=== PATIENT | female | born 1960 | race Caucasian/White ===

== ENCOUNTER → 2019-01-04 | Outpatient (CLI) | payer OTHER ==
[~2019-01-04] MED LIST: ATEN25TA PO; HCT25T PO
--- NOTE | 2019-01-04 19:25 | Diagnostic Imaging Report ---
INDICATION: Redness along the lateral right breast. COMPARISON: Correlation is made with diagnostic mammogram of earlier the same day. EXAMINATION: Sonographic interrogation of the area of redness along the lateral aspect of the right breast was performed. FINDINGS: No sonographic abnormality is seen. No solid or cystic mass is detected. IMPRESSION: No sonographic abnormality is detected. Clinical followup is recommended. ACR BI-RADS Category 1: Negative. Result letter will be mailed to the patient. Note: At least 10% of breast cancer is not imaged by mammography. Dictated by: Dictated on workstation # [id number]
--- NOTE | 2019-01-04 19:26 | Diagnostic Imaging Report ---
INDICATION: Area of redness along the lateral aspect of the right breast. Patient has had prior right breast carcinoma and right lumpectomy. Patient states this area of redness corresponds to the site of the drain post lumpectomy. COMPARISON: Correlation is made with prior mammograms from 06/06/2012 and 05/07/2011. TECHNIQUE: Bilateral 2-D and 3-D diagnostic mammography was performed. The current study was also evaluated with a Computer Aided Detection (CAD) system. 3-D tomosynthesis was also performed and reviewed. FINDINGS: Post-lumpectomy changes in the right breast are noted. There are benign calcifications in the right breast. Area of redness was marked with a [place] marker. No underlying abnormality is seen. There are no suspicious calcifications. Axillae are unremarkable. IMPRESSION: Post-lumpectomy changes in the right breast. No mammographic features suspicious for malignancy are identified. Even so, directed sonographic interrogation of the area of redness along the lateral aspect of the right breast is recommended and will be performed today. ACR BI-RADS Category 0: Incomplete. (Needs additional imaging evaluation). Result letter will be mailed to the patient. Note: At least 10% of breast cancer is not imaged by mammography. Dictated by: Dictated on workstation # [id number]
== END ==
LOC: RAD 08:02
PROVIDERS: ATTEND Nurse Practitioner Family
DX: N63.10 Unspecified lump in the right breast, unspecified quadrant (principal); Z85.3 Personal history of malignant neoplasm of breast; Z98.890 Other specified postprocedural states
CPT/HCPCS: 77066

== ENCOUNTER → 2020-08-05 | Outpatient (CLI) | payer OTHER ==
--- NOTE | 2020-08-05 13:49 | Diagnostic Imaging Report ---
PROCEDURE: US left lower extremity venous. TECHNIQUE: Multiple real-time grayscale images were obtained over the left lower extremity in various projections. Additional duplex Doppler and color Doppler images were also obtained. INDICATION: Thrombophlebitis in the left leg. There is no evidence of left lower extremity DVT. Left lower extremity deep venous system shows normal compressibility with normal response to augmentation and Valsalva. There does appear to be thrombus within a superficial vein in the lateral left thigh may represent the greater saphenous vein. There is no fluid collection. IMPRESSION: 1. No evidence of left lower extremity DVT. 2. Findings consistent with superficial thrombophlebitis. Dictated by: Dictated on workstation # [id number]
== END ==
LOC: RAD 12:39
PROVIDERS: ATTEND Nurse Practitioner Family
DX: I80.3 Phlebitis and thrombophlebitis of lower extremities, unspecified (principal)

== ENCOUNTER 2020-10-31 09:59 | Day surgery (SDC) | payer OTHER ==
[~2020-10-31] VITALS: Ht 172 cm; Wt 145.0 kg
[2020-10-31 10:44] LABS: BASOPHILS # (AUTO) 0.1 10^3/uL (0.0-0.1); BASOPHILS % (AUTO) 0 % (0-10); EOSINOPHILS % (AUTO) 0 % (0-10); HEMATOCRIT 46 % (35-52); HEMOGLOBIN 14.7 g/dL (11.5-16.0); LYMPHOCYTES # (AUTO) 1.5 10^3/uL (1.0-4.0); LYMPHOCYTES % (AUTO) 12 % (12-44); MEAN CORPUSCULAR HEMOGLOBIN 29 pg (25-34); MEAN CORPUSCULAR HGB CONC 32 g/dL (32-36); MEAN CORPUSCULAR VOLUME 91 fL (80-99); MEAN PLATELET VOLUME 10.4 fL (9.0-12.2); MONOCYTES # (AUTO) 0.6 10^3/uL (0.0-1.0); MONOCYTES % (AUTO) 5 % (0-12); NEUTROPHILS # (AUTO) 10.3 10^3/uL (1.8-7.8); NEUTROPHILS % (AUTO) 82 % (42-75); PLATELET COUNT 390 10^3/uL (130-400); WHITE BLOOD COUNT 12.6 10^3/uL (4.3-11.0)
[2020-10-31 10:50] LABS: ALBUMIN 3.9 GM/DL (3.2-4.5); POTASSIUM 4.1 MMOL/L (3.6-5.0)
[2020-10-31 10:51] LABS: CALCIUM 9.3 MG/DL (8.5-10.1)
[2020-10-31 10:54] LABS: BILIRUBIN,TOTAL 0.5 MG/DL (0.1-1.0)
[2020-10-31 10:56] LABS: CREATININE SERUM 0.94 MG/DL (0.60-1.30)
[2020-10-31 10:59] LABS: MAGNESIUM 2.3 MG/DL (1.6-2.4)
[2020-10-31] MEDS ORDERED: fentaNYL INJ 100 MCG/2 ML AMP IVP STA (11:53)
[2020-10-31] MEDS ORDERED: NS IV 1000 ML 1,000 ML IV STA (11:53)
[2020-10-31] MEDS ORDERED: CIPROFLOXACIN IV 400MG/200ML 200 ML IV ONE (12:00)
[2020-10-31] MEDS ORDERED: metroNIDAZOLE 500MG/100ML IVPB 100 ML IV ONE (12:00)
[2020-10-31] MEDS ORDERED: ONDANSETRON 4 MG/2 ML (SDV) Z0FRAN IVP ONE (12:00)
--- NOTE | 2020-10-31 12:01 | Diagnostic Imaging Report ---
PROCEDURE: US Gallbladder. TECHNIQUE: Multiple real-time grayscale images were obtained over the right upper quadrant in various projections. INDICATION: Epigastric pain. The liver is normal in size at approximately 16 cm. There is an area of hypoechogenicity in the left lobe of the liver measuring approximately 2.9 x 3.0 x 2.7 cm, indeterminate. No other liver lesions are seen. Gallbladder contains several stones. The wall is also mildly thickened at 4 mm. No biliary ductal dilatation is seen. Pancreas unremarkable. Aorta is nonaneurysmal. IVC is patent. Right kidneys without calculi or hydronephrosis. There is no ascites. IMPRESSION: 1. Indeterminate left lobe of the liver lesion. CT of the abdomen with and without IV contrast would be recommended for further evaluation. 2. Cholelithiasis with borderline gallbladder wall thickening. Cholecystitis cannot be entirely excluded. If this is of clinical concern, HIDA scan may be useful for further evaluation. Dictated by: Dictated on workstation # [id number]
--- NOTE | 2020-10-31 12:19 | ED GI ---
General Chief Complaint: Abdominal/GI Problems Stated Complaint: ABD PAIN Nursing Triage Note: AMB TO ROOM C/O R UPPER ABD PAIN WITH RADIATION TO BACK HAS HAD SOME DIARRHEA WITH. AND NAUSEA. Source of Information: Patient Exam Limitations: No Limitations History of Present Illness Date Seen by Provider: Oct 31, 2020 Time Seen by Provider: 10:38 Initial Comments Here with report of right upper quadrant abdominal pain associated with nausea and diarrhea. Has been worsening over the last several days. Denies fevers. States stools have been loose and yellow. Has history of breast cancer on the right and is status post surgery and radiation. Pain has worsened today to moderate. Timing/Duration: 5-6 Days, Changing Over Time, Getting Worse, Intermittent Severity/Quality: Moderate, Aching Location: RUQ Radiation: Back, Shoulder Activities at Onset: None Modifying Factors: Worsens With Eating Associated Symptoms: No Fever/Chills; Nausea/Vomiting Allergies and Home Medications Allergies Coded Allergies: valacyclovir HCl (Verified Allergy, Unknown, 08/05/20) Home Medications Atenolol 25 Mg Tablet, 1 EACH PO PRN, (Reported) Hydrochlorothiazide 25 Mg Tab, 25 MG PO PRN, (Reported) Patient Home Medication List Home Medication List Reviewed: Yes Review of Systems Review of Systems Constitutional: see HPI; No chills, No fever EENTM: No Symptoms Reported Respiratory: No Symptoms Reported Cardiovascular: Denies Chest Pain, Denies Edema Gastrointestinal: Diarrhea, Nausea, Vomiting Genitourinary: No Symptoms Reported Musculoskeletal: see HPI All Other Systems Reviewed Negative Unless Noted: Yes Past Wpxulkd-Nyjrnd-Gcetvd Hx Patient Social History Tobacco Use?: No Use of E-Cig and/or Vaping dev: No Substance use?: No Pt feels they are or have been: No Immunizations Up To Date Influenza Vaccine Up-to-Date: Yes; Up-to-Date First/Initial COVID19 Vaccinat: mar Second COVID19 Vaccination Scott: apr Past Medical History Surgeries: Yes Breast, Orthopedic 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 oz. kg; 49.00 BMI Method:Stated General Appearance: WD/WN, no apparent distress HEENT: PERRL/EOMI, pharynx normal Neck: full range of motion, supple Respiratory: lungs clear, normal breath sounds Cardiovascular: regular rate, rhythm, no murmur Gastrointestinal: soft, tenderness (Right upper quadrant) Extremities: non-tender, normal inspection Back: normal inspection, no vertebral tenderness Neurologic/Psychiatric: alert, oriented x 3 Skin: normal color, warm/dry Progress/Results/Core Measures Results/Orders Lab Results Laboratory Tests Test 10/31/20 10:13 Range/Units White Blood Count 12.6 H 4.3-11.0 10^3/uL Red Blood Count 5.04 3.80-5.11 10^6/uL Hemoglobin 14.7 11.5-16.0 g/dL Hematocrit 46 35-52 % Mean Corpuscular Volume 91 80-99 fL Mean Corpuscular Hemoglobin 29 25-34 pg Mean Corpuscular Hemoglobin Concent 32 32-36 g/dL Red Cell Distribution Width 13.5 10.0-14.5 % Platelet Count 390 130-400 10^3/uL Mean Platelet Volume 10.4 9.0-12.2 fL Immature Granulocyte % (Auto) 1 % Neutrophils (%) (Auto) 82 H 42-75 % Lymphocytes (%) (Auto) 12 12-44 % Monocytes (%) (Auto) 5 0-12 % Eosinophils (%) (Auto) 0 0-10 % Basophils (%) (Auto) 0 0-10 % Neutrophils # (Auto) 10.3 H 1.8-7.8 10^3/uL Lymphocytes # (Auto) 1.5 1.0-4.0 10^3/uL Monocytes # (Auto) 0.6 0.0-1.0 10^3/uL Eosinophils # (Auto) 0.0 0.0-0.3 10^3/uL Basophils # (Auto) 0.1 0.0-0.1 10^3/uL Immature Granulocyte # (Auto) 0.1 0.0-0.1 10^3/uL Sodium Level 137 135-145 MMOL/L Potassium Level 4.1 3.6-5.0 MMOL/L Chloride Level 100 98-107 MMOL/L Carbon Dioxide Level 27 21-32 MMOL/L Anion Gap 10 5-14 MMOL/L Blood Urea Nitrogen 12 7-18 MG/DL Creatinine 0.94 0.60-1.30 MG/DL Estimat Glomerular Filtration Rate 60 BUN/Creatinine Ratio 13 Glucose Level 165 H 70-105 MG/DL Calcium Level 9.3 8.5-10.1 MG/DL Corrected Calcium 9.4 8.5-10.1 MG/DL Magnesium Level 2.3 1.6-2.4 MG/DL Total Bilirubin 0.5 0.1-1.0 MG/DL Aspartate Amino Transf (AST/SGOT) 13 5-34 U/L Alanine Aminotransferase (ALT/SGPT) 18 0-55 U/L Alkaline Phosphatase 69 40-136 U/L C-Reactive Protein High Sensitivity 4.63 H 0.00-0.50 MG/DL Total Protein 8.0 6.4-8.2 GM/DL Albumin 3.9 3.2-4.5 GM/DL My Orders Orders - JANET GRIDER MD Cbc With Automated Diff (10/31/20 10:37) Comprehensive Metabolic Panel (10/31/20 10:37) Hs C Reactive Protein (10/31/20 10:37) Magnesium (10/31/20 10:37) Us Gallbladder 02105 (10/31/20 10:37) Ed Iv/Invasive Line Start (10/31/20 10:37) Fentanyl Inj (Sublimaze Injection) (10/31/20 11:53) Ondansetron Injection (Zofran Injectio (10/31/20 12:00) Ns Iv 1000 Ml (Sodium Chloride 0.9%) (10/31/20 11:53) Lactic Acid Analyzer (10/31/20 11:57) Blood Culture (10/31/20 11:57) Ciprofloxacin Iv 400mg/200ml (Cipro Iv S (10/31/20 12:00) Metronidazole 500mg/100ml Ivpb (Flagyl 5 (10/31/20 12:00) Medications Given in ED Current Medications Medications Dose Ordered Sig/Juno Route Start Time Stop Time Status Last Admin Dose Admin Ciprofloxacin/ Dextrose 200 ml @ 200 mls/hr ONCE ONCE IV 10/31/20 12:00 10/31/20 12:59 DC 10/31/20 13:20 200 MLS/HR Ondansetron HCl 4 mg ONCE ONCE IVP 10/31/20 12:00 10/31/20 12:01 DC 10/31/20 12:16 4 MG Vital Signs/I&O 10/31/20 10:20 Temp 36.7 Pulse 77 Resp 18 B/P (MAP) 138/87 (104) Pulse Ox 96 O2 Delivery Room Air Blood Pressure Mean: 104 Progress Progress Note : Progress Note Seen and evaluated. IV, labs and ultrasound right upper quadrant ordered. Monitor patient. 1151: Cholecystitis noted on ultrasound preliminary read with cholelithiasis. I did discuss the case with Dr. Pena. We will get her set up for admission as well as antibiotics. I will do blood cultures and lactic acid and sepsis order set for admission. We will use Cipro and Flagyl which were ordered. 1210: Official read shows liver cystic structure that needs further characterization with CT scan. I did discuss the case with Dr. Pena. We will go ahead and order the CT scan with and without of the abdomen and pelvis as recommended by radiology. I did discuss this with the patient as well. She does have a history of breast cancer so evaluation is important in that respect. Dr. Pena to follow scan. Admit, inpatient status. Patient agrees with plan. Patient did receive fentanyl 50 mcg IV and Zofran 4 mg IV for pain and nausea. Diagnostic Imaging Diagonstic Imaging: Ultrasound Plain Films/CT/US/NM/MRI: abdomen Comments [facility]. [place], [place] NAME: BRIANA TORIBIO [facility] REC#: [id number] PT STATUS: REG ER : 1960 PHYSICIAN: JANET GRIDER MD ADMIT DATE: 10/31/20/ER Draft Date of Exam:10/31/20 US GALLBLADDER [id number] PROCEDURE: US Gallbladder. TECHNIQUE: Multiple real-time grayscale images were obtained over the right upper quadrant in various projections. INDICATION: Epigastric pain. The liver is normal in size at approximately 16 cm. There is an area of hypoechogenicity in the left lobe of the liver measuring approximately 2.9 x 3.0 x 2.7 cm, indeterminate. No other liver lesions are seen. Gallbladder contains several stones. The wall is also mildly thickened at 4 mm. No biliary ductal dilatation is seen. Pancreas unremarkable. Aorta is nonaneurysmal. IVC is patent. Right kidneys without calculi or hydronephrosis. There is no ascites. IMPRESSION: 1. Indeterminate left lobe of the liver lesion. CT of the abdomen with and without IV contrast would be recommended for further evaluation. 2. Cholelithiasis with borderline gallbladder wall thickening. Cholecystitis cannot be entirely excluded. If this is of clinical concern, HIDA scan may be useful for further evaluation. Dictated on workstation # [id number] Dict: 10/31/20 1155 Trans: 10/31/20 1201 [facility] [id number] Interpreted by: MARIAM AKHTAR MD Electronically signed by: Deepansmarky Imaging: CT Plain Films/CT/US/NM/MRI: abdomen, pelvis Comments [facility] [place] [place] NAME: BRIANA TORIBIO [facility] REC#: [id number] PT STATUS: ADM IN : 1960 PHYSICIAN: JANET GRIDER MD ADMIT DATE: 10/31/20 Draft Date of Exam:10/31/20 CT ABDOMEN/PELVIS W WO EXAMINATION: CT abdomen and pelvis with and without intravenous contrast. TECHNIQUE: Precontrast acquisitions were acquired through the abdomen and pelvis. Multiple contiguous axial images were obtained through the abdomen and pelvis after the administration of intravenous contrast. All CT scans use one or more of the following dose optimizing techniques: Automated exposure control, MA and/or KvP adjustment based on patient size and exam type or iterative reconstruction. HISTORY: Liver lesion. COMPARISON: Sonogram dated 10/31/2020. FINDINGS: Limited views of the lower thorax are unremarkable. No focal liver lesion is seen. There is no CT correlate for the sonographic abnormality. There is no biliary ductal dilation. Gallbladder wall is thickened, and there is surrounding stranding suggestive of cholecystitis. Pancreas is normal. Spleen is normal. Adrenal glands are normal. The kidneys are normal. There is no hydronephrosis. Urinary bladder is normal. Visualized bowel is normal in caliber without obstruction or inflammation. No free fluid or air. No abdominal or pelvic lymphadenopathy. Aorta is normal in caliber without aneurysm. There are no suspicious osseous lesions. IMPRESSION: 1. No CT correlate for the sonographic abnormality. Consider three-month follow-up sonogram of the liver to determine if it is still present or is an artifact. 2. Thick-walled gallbladder with surrounding stranding suggestive of cholecystitis. Dictated on workstation # [id number] Dict: 10/31/20 1334 Trans: 10/31/20 1342 [id number] Interpreted by: TONE RIOJAS MD Electronically signed by: Reviewed: Reviewed by Me Departure Communication (Admissions) Time/Spoke to Admitting Phy: 11:51 Impression Primary Impression: Cholecystitis Additional Impression: Liver lesion, left lobe Disposition: ADMITTED INPATIENT Condition: Stable Admissions Decision to Admit Reason: Admit from ER (General) Decision to Admit/Date: Oct 31, 2020 Time/Decision to Admit Time: 11:51 Departure-Patient Inst. Referrals: DOREEN LI MD (PCP/Family) Primary Care Physician JANET GRIDER MD Oct 31, 2020 12:19
[2020-10-31] MEDS ORDERED: fentaNYL INJ 100 MCG/2 ML AMP ONE (12:21)
[2020-10-31] MEDS ORDERED: HOLD METFORMIN - RECEIVED CONTRAST 20 ML VIAL IV SCH ×2 (12:45→13:00)
[2020-10-31] MEDS ORDERED: IOHEXOL 350 MG/ML 100 ML (OMNIPAQUE 350) VIAL IV ONE ×2 (12:45→13:00)
[2020-10-31] MEDS ORDERED: NS 100 ML (IVPB) BAG IV ONE ×2 (12:45→13:00)
[2020-10-31] MEDS ORDERED: CATHETER FLUSH 10 ML SYR IV PRN (12:45)
--- NOTE | 2020-10-31 13:42 | Diagnostic Imaging Report ---
EXAMINATION: CT abdomen and pelvis with and without intravenous contrast. TECHNIQUE: Precontrast acquisitions were acquired through the abdomen and pelvis. Multiple contiguous axial images were obtained through the abdomen and pelvis after the administration of intravenous contrast. All CT scans use one or more of the following dose optimizing techniques: Automated exposure control, MA and/or KvP adjustment based on patient size and exam type or iterative reconstruction. HISTORY: Liver lesion. COMPARISON: Sonogram dated 10/31/2020. FINDINGS: Limited views of the lower thorax are unremarkable. No focal liver lesion is seen. There is no CT correlate for the sonographic abnormality. There is no biliary ductal dilation. Gallbladder wall is thickened, and there is surrounding stranding suggestive of cholecystitis. Pancreas is normal. Spleen is normal. Adrenal glands are normal. The kidneys are normal. There is no hydronephrosis. Urinary bladder is normal. Visualized bowel is normal in caliber without obstruction or inflammation. No free fluid or air. No abdominal or pelvic lymphadenopathy. Aorta is normal in caliber without aneurysm. There are no suspicious osseous lesions. IMPRESSION: 1. No CT correlate for the sonographic abnormality. Consider three-month follow-up sonogram of the liver to determine if it is still present or is an artifact. 2. Thick-walled gallbladder with surrounding stranding suggestive of cholecystitis. Dictated by: Dictated on workstation # [id number]
--- NOTE | 2020-10-31 14:08 | HISTORY AND PHYSICAL ---
DATE OF SERVICE: ATTENDING PRIMARY CARE PHYSICIAN: Divya Garcia MD. HISTORY OF PRESENT ILLNESS: The patient is a 60-year-old female, who presented to the Emergency Department with a 5-day history of pain in the right upper abdominal quadrant, which then progressed to nausea and vomiting as well as diarrhea. She states that she has had some milder episodes of this before in the past; however, never severe. An ultrasound was performed, which did show gallbladder wall thickening as well as pericholecystic fluid consistent with an acute calculous cholecystitis. PAST MEDICAL HISTORY: Right breast cancer. Hypertension. PAST SURGICAL HISTORY: Right breast lumpectomy and radiation. Orthopedic procedure. ALLERGIES: VALACYCLOVIR. MEDICATIONS: Atenolol 25 mg daily, hydrochlorothiazide 25 mg p.r.n. SOCIAL HISTORY: Negative smoke, negative alcohol. FAMILY HISTORY: Noncontributory. VITAL SIGNS: Temperature 36.7, blood pressure 138/87, pulse 77, respirations 18, pulse ox 96% on room air. REVIEW OF SYSTEMS: Well-nourished female currently in no acute distress. She is not experiencing any shortness of breath or difficulty breathing. No chest pain, palpitations, diaphoresis. Pain in the right upper abdominal quadrant with associated nausea and vomiting as well as diarrhea. No red blood per rectum, no dark tarry stools. No fever or chills, no recent inadvertent weight loss. All other review of systems negative. PHYSICAL EXAMINATION: CHEST: Clear. Good breath sounds bilaterally. HEART: Regular, no murmurs. EXTREMITIES: No lower extremity edema, negative Homans sign. HEENT: No scleral icterus. NECK: No cervical lymphadenopathy. ABDOMEN: Soft, nondistended. There is pain in the right upper abdominal quadrant with a positive Dorado sign guarding, no rebound. SKIN: Warm, dry. LABORATORY DATA: WBC 12.6, hemoglobin 14.7, hematocrit 46, platelets 390. BUN 12, creatinine 0.94. Total bilirubin 0.5. ASSESSMENT AND PLAN: A 60-year-old female with acute calculous cholecystitis. We will proceed with bowel rest with clear liquids as well as IV fluids and IV antibiotics and then proceed with laparoscopic cholecystectomy on this admission. Job ID: [id number] DocumentID: [id number] Dictated Date: 10/31/2020 13:52:37 Risk Management Manager Date: 10/31/2020 14:07:36 Dictated By: SILVIA ANDRADE MD
[2020-10-31 14:11] VITALS: BP 146/82
[2020-10-31] MEDS ORDERED: ONDANSETRON 4 MG/2 ML (SDV) Z0FRAN IV PRN (14:30)
[2020-10-31] MEDS: fentaNYL INJ 100 MCG/2 ML AMP IV PRN (15:24)
[2020-10-31 16:00] VITALS: BP 151/80
[2020-10-31] MEDS ORDERED: METF-397 PO (16:39)
[2020-10-31] MEDS ORDERED: ACET-2267 PO (16:39)
[2020-10-31] MEDS: HYDROcodone/APAP 7.5 MG/325 MG (LORTAB, LORCET PLUS) TABLET PO PRN (18:37)
--- NOTE | 2020-10-31 19:50 | Progress Note-Pre Operative ---
Pre-Operative Progress Note H&P Reviewed The H&P was reviewed, patient examined and no changes noted. Date Seen by Provider: Oct 31, 2020 Time Seen by Provider: 19:50 Date H&P Reviewed: Oct 31, 2020 Time H&P Reviewed: 19:50 Pre-Operative Diagnosis: acute calculous cholecystitis SILVIA ANDRADE MD Oct 31, 2020 19:50
[2020-10-31 20:00] VITALS: BP 149/73
[2020-10-31] MEDS: metroNIDAZOLE 500 MG/100 ML IVPB (PRE-MIX) IV SCH (22:12)
[2020-10-31 23:09] VITALS: BP 138/78
[2020-11-01] VITALS (11 sets, daily range): BP systolic 98–126; BP diastolic 42–75
[2020-11-01] MEDS: NS IV 1000 ML 1,000 ML IV SCH ×4 (01:18→21:09)
[2020-11-01] MEDS: CIPROFLOXACIN 400 MG/D5W 200 ML (PRE-MIX) IV SCH ×2 (01:19→15:08)
[2020-11-01 06:35] LABS: BASOPHILS # (AUTO) 0.1 10^3/uL (0.0-0.1); BASOPHILS % (AUTO) 1 % (0-10); EOSINOPHILS # (AUTO) 0.2 10^3/uL (0.0-0.3); EOSINOPHILS % (AUTO) 2 % (0-10); HEMATOCRIT 43 % (35-52); HEMOGLOBIN 13.5 g/dL (11.5-16.0); LYMPHOCYTES # (AUTO) 1.5 10^3/uL (1.0-4.0); LYMPHOCYTES % (AUTO) 16 % (12-44); MEAN CORPUSCULAR HEMOGLOBIN 29 pg (25-34); MEAN CORPUSCULAR HGB CONC 31 g/dL (32-36); MEAN CORPUSCULAR VOLUME 91 fL (80-99); MEAN PLATELET VOLUME 10.3 fL (9.0-12.2); MONOCYTES # (AUTO) 0.7 10^3/uL (0.0-1.0); MONOCYTES % (AUTO) 8 % (0-12); NEUTROPHILS # (AUTO) 6.6 10^3/uL (1.8-7.8); NEUTROPHILS % (AUTO) 73 % (42-75); PLATELET COUNT 312 10^3/uL (130-400)
[2020-11-01] MEDS: metroNIDAZOLE 500 MG/100 ML IVPB (PRE-MIX) IV SCH ×3 (06:39→22:31)
[2020-11-01] MEDS ORDERED: ONDANSETRON 4 MG/2 ML (SDV) Z0FRAN ONE (10:17)
[2020-11-01] MEDS ORDERED: ROCURONIUM 10 MG/ML 5 ML SYRINGE IV ONE (10:17)
[2020-11-01] MEDS ORDERED: LIDOCAINE PF 2% 5 ML (XYLOCAINE) VIAL ONE (10:17)
[2020-11-01] MEDS ORDERED: proPOfol 200 MG/20 ML (DIPRIVAN) VIAL IV ONE (10:17)
[2020-11-01] MEDS ORDERED: fentaNYL INJ 100 MCG/2 ML AMP ONE (10:17)
[2020-11-01] MEDS ORDERED: MIDAZOLAM 2 MG/2 ML (VERSED) VIAL ONE (10:18)
--- NOTE | 2020-11-01 10:28 | Progress Note ---
Standard Progress Note Progress Notes/Assess & Plan Date Seen by a Provider: Nov 01, 2020 Time Seen by a Provider: 10:10 Progress/Assessment & Plan Patient seen with Dr. Pena. Patient reports that she has not had any N/V over night or this morning. Denies any fever/chills or any pain at this time. Questions answered and patient reports ready surgery. Will proceed with Laparoscopic cholecystectomy. Focused Exam Lactate Level 10/31/20 12:13: Lactic Acid Level 1.17 CLAIRE LYMAN THREE KNIFE TRIMMER Nov 01, 2020 10:28
[2020-11-01] MEDS: LACTATED RINGERS 1,000 ML IV PRN ×2 (10:50→12:10)
[2020-11-01] MEDS ORDERED: SEVOFLURANE (ULTANE) 15 ML INHAL SOLN ONE (12:50)
--- NOTE | 2020-11-01 13:08 | Progress Note-Post Operative ---
Post-Operative Progess Note Surgeon (s)/Friction Saw Operator (s) Surgeon SILVIA ANDRADE MD Friction Saw Operator: barry mitchell MEDICAL RECORD TRANSCRIBER Pre-Operative Diagnosis acute calculous cholecystitis Post-Operative Diagnosis same Procedure & Operative Findings Date of Procedure 11/01/20 Procedure Performed/Findings laparoscopic cholecystectomy Anesthesia Type get Estimated Blood Loss Estimated blood loss (mL): 400ml Specimens/Packing Specimens Removed gallbladder SILVIA ANDRADE MD Nov 01, 2020 13:08
[2020-11-01] MEDS ORDERED: HYDR-3817 PO (13:10)
--- NOTE | 2020-11-01 13:11 | Discharge Inst-Surgical ---
D/C Lap Instructions-LUPE New, Converted, or Re-Newed RX: RX on Chart Follow Up Appt in 2 weeks Activity as tolerated No driving for 24 hours No driving while on pain medications Incentive Spirometry use every 2 hours while awake Regular Diet Symptoms to Report: Fever over 101 degree F, Nausea/Vomiting Infection Signs and Symptoms to report: Increased redness, Foul odor of wound, Increased drainage Bathing instructions: May shower Operative Area Clean/Dry; Keep incision clean/dry If any problems/questions: Contact your physician or go to Emergency Room SILVIA ANDRADE MD Nov 01, 2020 13:11
[2020-11-01] MEDS ORDERED: morphine INJ 10 MG/ML 1ML (SYR OR VIAL) IVP ONE (13:15)
[2020-11-01] MEDS ORDERED: ONDANSETRON 4 MG/2 ML (SDV) Z0FRAN IVP PRN (13:15)
[2020-11-01] MEDS ORDERED: HYDROmorphone 2 MG/ML VIAL (DILAUDID) IV ONE (13:15)
[2020-11-01] MEDS ORDERED: PROMETHAZINE INJ 25 MG/ML (PHENERGAN) AMP IVP ONE (13:15)
[2020-11-01] MEDS ORDERED: MEPERIDINE (DEMEROL) INJ 50 MG/ML IVP ONE (13:15)
[2020-11-01] MEDS ORDERED: LIDOCAINE/EPI 1%-1:100,000 (XYLOCAINE) 20ML ONE (13:51)
--- NOTE | 2020-11-01 14:59 | Anesthesia-General Post-Op ---
General Patient Condition Mental Status/LOC: Same as Preop Cardiovascular: Satisfactory Nausea/Vomiting: Absent Respiratory: Satisfactory Pain: Controlled Complications: Absent Post Op Complications Complications None Follow Up Care/Instructions Patient Instructions None needed. Anesthesia/Patient Condition Patient Condition Patient is doing well, no complaints, stable vital signs, no apparent adverse anesthesia problems. No complications reported per nursing. CHRISTIAN HARLEY CRNA Nov 01, 2020 14:59
[2020-11-01] MEDS: fentaNYL INJ 100 MCG/2 ML AMP IV PRN ×4 (15:02→22:31)
--- NOTE | 2020-11-01 23:23 | OPERATIVE REPORT ---
DATE OF SERVICE: 11/01/2020 ATTENDING PRIMARY CARE PHYSICIAN: Divya Garcia MD PREOPERATIVE DIAGNOSIS: Acute calculous cholecystitis. POSTOPERATIVE DIAGNOSIS: Acute calculous cholecystitis. PROCEDURE: Laparoscopic cholecystectomy. SURGEON: Elver Pena MD. STAFF COMMAND AND CONTROL OFFICER: Jessee Mortensen APRN. ANESTHESIA: General endotracheal. ESTIMATED BLOOD LOSS: 400 mL. FINDINGS: Severely inflamed gallbladder with multiple stones. DISPOSITION: The patient tolerated the procedure well. INDICATIONS: The patient is a 60-year-old female, who has had a discomfort in the right upper abdominal quadrant, usually after meals for several years now. However, more recently in the past 5 days, she has had significant pain in the right upper abdominal quadrant with associated nausea and vomiting. Ultrasound was performed, which did show gallbladder wall thickening, multiple stones as well as pericholecystic fluid consistent with acute cholecystitis. DESCRIPTION OF PROCEDURE: The patient was brought to the operating room, laid supine on the table. After adequate IV pain and sedative medications and general endotracheal intubation, the abdomen was prepped and draped in standard surgical fashion. A 0.5% Marcaine with epinephrine was then used to anesthetize overlying skin in the left upper abdominal quadrant and transverse skin incision made using 15 blade. An 0 silk suture was applied to the medial aspect incision for retraction and a Veress needle inserted with a low opening pressure of 0 mmHg and the abdomen was then insufflated to 15 mmHg pressure. The Veress needle removed and a 5 mm XL trocar placed followed by a 5 mm 45-degree angle laparoscope visualizing the peritoneal cavity. A 4-quadrant abdominal exploration was performed. The gallbladder was not visualized at this time and covered with omentum. We then proceeded to place a supraumbilical 10 mm port after the skin and peritoneal lining were anesthetized using 0.5% Marcaine with epinephrine and transverse skin incision made using a 15 blade. In a similar manner, two right upper abdominal quadrant 5 mm ports were placed. The omentum was adhered to the fundus and body of the gallbladder, which was gently dissected down using electrocautery as well as blunt dissection. Once we were able to get the visualization of the gallbladder, which was inflamed and hard, we were able to retract the gallbladder anteriorly and superiorly. The hepatoduodenal ligament was then dissected bluntly using a hook as well as [place] dissector. The cystic duct and artery were then identified and dissected. The entire critical view of safety was identified including the cystic duct and artery as only two structures going into the gallbladder as well as the cystic plate behind the proximal gallbladder and the triangle of Calot. A timeout was then taken and the cystic duct and artery were then clipped proximally and distally and cut with EndoShears. The gallbladder was then dissected off the liver bed using cautery on hook instrument with visualization of good hemostasis. The gallbladder was removed through the 10 mm port site using an EndoCatch bag. Due to the inflammation as well as bleeding, a 19-Kazakh Errol-Olsen drain was placed in the gallbladder fossa and brought out one of the 5 mm ports and sutured to the skin using 3-0 nylon interrupted suture. The fascia and peritoneum were then closed under direct visualization using a Indra-Randa device and 0 Vicryl suture. The abdomen was desufflated and remaining ports removed. All skin incisions were closed using 4-0 Monocryl running subcuticular sutures. Wounds were then cleaned and covered with Dermabond. The patient tolerated the procedure well. We will start IV and oral pain medication as well as a clear liquid diet. When she is tolerating clears, has good pain control with oral pain medications, ambulating well, we will discharge her home. Job ID: [id number] DocumentID: [id number] Dictated Date: 11/01/2020 12:43:02 Trauma Registrar Date: 11/01/2020 20:41:26 Dictated By: ELVER PENA MD [facility]
[2020-11-02] MEDS: CIPROFLOXACIN 400 MG/D5W 200 ML (PRE-MIX) IV SCH ×2 (01:10→13:05)
[2020-11-02] MEDS: fentaNYL INJ 100 MCG/2 ML AMP IV PRN ×2 (01:10→07:09)
[2020-11-02 04:07] VITALS: BP 110/62
[2020-11-02] MEDS: metroNIDAZOLE 500 MG/100 ML IVPB (PRE-MIX) IV SCH ×3 (05:44→22:18)
[2020-11-02 06:43] LABS: BASOPHILS # (AUTO) 0.1 10^3/uL (0.0-0.1); BASOPHILS % (AUTO) 0 % (0-10); EOSINOPHILS % (AUTO) 0 % (0-10); HEMATOCRIT 39 % (35-52); HEMOGLOBIN 12.1 g/dL (11.5-16.0); LYMPHOCYTES # (AUTO) 1.3 10^3/uL (1.0-4.0); LYMPHOCYTES % (AUTO) 12 % (12-44); MEAN CORPUSCULAR HEMOGLOBIN 29 pg (25-34); MEAN CORPUSCULAR HGB CONC 31 g/dL (32-36); MEAN CORPUSCULAR VOLUME 93 fL (80-99); MEAN PLATELET VOLUME 9.9 fL (9.0-12.2); MONOCYTES # (AUTO) 0.9 10^3/uL (0.0-1.0); MONOCYTES % (AUTO) 8 % (0-12); NEUTROPHILS # (AUTO) 9.2 10^3/uL (1.8-7.8); NEUTROPHILS % (AUTO) 79 % (42-75); PLATELET COUNT 307 10^3/uL (130-400); WHITE BLOOD COUNT 11.6 10^3/uL (4.3-11.0)
[2020-11-02 06:49] LABS: ALBUMIN 3.1 GM/DL (3.2-4.5)
[2020-11-02 06:50] LABS: CHLORIDE 104 MMOL/L (98-107); POTASSIUM 4.2 MMOL/L (3.6-5.0); SODIUM 139 MMOL/L (135-145)
[2020-11-02 06:51] LABS: CALCIUM 8.3 MG/DL (8.5-10.1)
[2020-11-02 06:52] LABS: GLUCOSE 122 MG/DL (70-105); TOTAL PROTEIN 6.5 GM/DL (6.4-8.2)
[2020-11-02 06:53] LABS: CARBON DIOXIDE 25 MMOL/L (21-32)
[2020-11-02 06:54] LABS: BILIRUBIN,TOTAL 0.4 MG/DL (0.1-1.0)
[2020-11-02 06:55] LABS: ALKALINE PHOSPHATASE 50 U/L (40-136)
[2020-11-02 06:56] LABS: CREATININE SERUM 0.87 MG/DL (0.60-1.30); GFR ESTIMATED > 60
[2020-11-02 06:57] LABS: BUN/CREATININE RATIO 9
[2020-11-02 06:58] LABS: ALANINE AMINOTRANSFERASE 62 U/L (0-55)
[2020-11-02 08:00] VITALS: BP 112/71
[2020-11-02] MEDS: NS IV 1000 ML 1,000 ML IV SCH ×2 (08:15→18:13)
--- NOTE | 2020-11-02 09:32 | Progress Note ---
CEE NASCIMENTO 11/02/20 0932: Subjective Date Seen by a Provider: Nov 02, 2020 Time Seen by a Provider: 09:20 Subjective/Events-last exam Pt is afebrile, tolerating liquids well. Having lower abdominal pain, but pain of RUQ relieved since surgery. Drain in place with small amount of light pink drainage. Ambulating to bathroom with some assistance. VSS. Using pain meds every 6 hours or less. Focused Exam Lactate Level 10/31/20 12:13: Lactic Acid Level 1.17 Objective Exam Last Set of Vital Signs Vital Signs Date Time Temp Pulse Resp B/P (MAP) Pulse Ox O2 Delivery O2 Flow Rate FiO2 11/02/20 08:00 36.2 79 20 112/71 (85) 95 Nasal Cannula 2.00 Capillary Refill : Less Than 3 Seconds I&O Intake and Output 11/01/20 23:59 Intake Total 2510 ml Output Total 445 ml Balance 2065 ml Intake Oral 410 ml IV Total 2100 ml Drainage Total 45 ml Estimated Blood Loss 400 ml # Voids 8 Results Lab Laboratory Tests 11/01/20 13:08: Glucometer 179H 11/01/20 15:18: Glucometer 158H 11/02/20 06:25: White Blood Count 11.6H, Red Blood Count 4.19, Hemoglobin 12.1, Hematocrit 39, Mean Corpuscular Volume 93, Mean Corpuscular Hemoglobin 29, Mean Corpuscular Hemoglobin Concent 31L, Red Cell Distribution Width 14.0, Platelet Count 307, Mean Platelet Volume 9.9, Immature Granulocyte % (Auto) 1, Neutrophils (%) (Auto) 79H, Lymphocytes (%) (Auto) 12, Monocytes (%) (Auto) 8, Eosinophils (%) (Auto) 0, Basophils (%) (Auto) 0, Neutrophils # (Auto) 9.2H, Lymphocytes # (Auto) 1.3, Monocytes # (Auto) 0.9, Eosinophils # (Auto) 0.0, Basophils # (Auto) 0.1, Immature Granulocyte # (Auto) 0.1, Sodium Level 139, Potassium Level 4.2, Chloride Level 104, Carbon Dioxide Level 25, Anion Gap 10, Blood Urea Nitrogen 8, Creatinine 0.87, Estimat Glomerular Filtration Rate > 60, BUN/Creatinine Ratio 9, Glucose Level 122H, Calcium Level 8.3L, Corrected Calcium 9.0, Total Bilirubin 0.4, Aspartate Amino Transf (AST/SGOT) 69H, Alanine Aminotransferase (ALT/SGPT) 62H, Alkaline Phosphatase 50, Total Protein 6.5, Albumin 3.1L Microbiology 10/31/20 MRSA Screen - Final, Complete MRSA not isolated 10/31/20 Blood Culture - Preliminary, Resulted No growth SILVIA ANDRADE MD 11/03/20 1720: Assessment/Plan Assessment/Plan Assess & Plan/Chief Complaint agree with above. increase ambulation. increase diet as tolerated. PO pain meds v. IV CEE NASCIMENTO Nov 02, 2020 09:32 SILVIA ANDRADE MD Nov 03, 2020 17:20
[2020-11-02] MEDS: HYDROcodone/APAP 7.5 MG/325 MG (LORTAB, LORCET PLUS) TABLET PO PRN ×4 (10:20→23:35)
[2020-11-02 12:12] VITALS: BP 98/65
[2020-11-02 16:54] VITALS: BP 113/68
[2020-11-02] MEDS ORDERED: polyethylene glycoL POWDER 17 GM (MIRALAX) PACK PO PRN (18:15)
[2020-11-02] MEDS ORDERED: BISACODYL 10 MG SUPP (DULCOLAX) PR PRN (18:15)
[2020-11-02] MEDS ORDERED: polyethylene glycoL POWDER 17 GM (MIRALAX) PACK ONE (18:28)
[2020-11-02 20:48] VITALS: BP 149/78
[2020-11-03 00:06] VITALS: BP 110/52
[2020-11-03] MEDS: CIPROFLOXACIN 400 MG/D5W 200 ML (PRE-MIX) IV SCH ×2 (01:13→13:07)
[2020-11-03] MEDS: NS IV 1000 ML 1,000 ML IV SCH ×2 (03:16→13:07)
[2020-11-03 03:19] VITALS: BP 121/64
[2020-11-03] MEDS: HYDROcodone/APAP 7.5 MG/325 MG (LORTAB, LORCET PLUS) TABLET PO PRN ×3 (04:27→16:11)
[2020-11-03] MEDS: metroNIDAZOLE 500 MG/100 ML IVPB (PRE-MIX) IV SCH ×2 (06:00→14:31)
[2020-11-03 06:54] LABS: BASOPHILS % (AUTO) 0 % (0-10); EOSINOPHILS # (AUTO) 0.2 10^3/uL (0.0-0.3); EOSINOPHILS % (AUTO) 2 % (0-10); HEMATOCRIT 36 % (35-52); HEMOGLOBIN 11.2 g/dL (11.5-16.0); LYMPHOCYTES # (AUTO) 1.1 10^3/uL (1.0-4.0); LYMPHOCYTES % (AUTO) 12 % (12-44); MEAN CORPUSCULAR HEMOGLOBIN 29 pg (25-34); MEAN CORPUSCULAR HGB CONC 31 g/dL (32-36); MEAN CORPUSCULAR VOLUME 94 fL (80-99); MEAN PLATELET VOLUME 10.2 fL (9.0-12.2); MONOCYTES # (AUTO) 0.7 10^3/uL (0.0-1.0); MONOCYTES % (AUTO) 7 % (0-12); NEUTROPHILS # (AUTO) 7.2 10^3/uL (1.8-7.8); NEUTROPHILS % (AUTO) 78 % (42-75); PLATELET COUNT 259 10^3/uL (130-400); WHITE BLOOD COUNT 9.2 10^3/uL (4.3-11.0)
[2020-11-03 07:05] LABS: CHLORIDE 103 MMOL/L (98-107); POTASSIUM 3.6 MMOL/L (3.6-5.0); SODIUM 139 MMOL/L (135-145)
[2020-11-03 07:06] LABS: CALCIUM 8.2 MG/DL (8.5-10.1)
[2020-11-03 07:07] LABS: GLUCOSE 113 MG/DL (70-105); TOTAL PROTEIN 6.1 GM/DL (6.4-8.2)
[2020-11-03 07:08] LABS: CARBON DIOXIDE 27 MMOL/L (21-32)
[2020-11-03 07:09] LABS: BILIRUBIN,TOTAL 0.4 MG/DL (0.1-1.0)
[2020-11-03 07:10] LABS: ALKALINE PHOSPHATASE 46 U/L (40-136)
[2020-11-03 07:11] LABS: CREATININE SERUM 0.87 MG/DL (0.60-1.30); GFR ESTIMATED > 60
[2020-11-03 07:12] LABS: BUN/CREATININE RATIO 8
[2020-11-03 07:13] LABS: ALANINE AMINOTRANSFERASE 67 U/L (0-55)
[2020-11-03 08:18] VITALS: BP 96/55
[2020-11-03 12:26] VITALS: BP 115/55
[2020-11-03 16:17] VITALS: BP 118/68
--- NOTE | 2020-11-03 17:18 | Progress Note ---
Subjective Date Seen by a Provider: Nov 03, 2020 Time Seen by a Provider: 17:00 Subjective/Events-last exam doing much better today. ambulating better. tolerating diet. minimal LULY output Objective Exam Vital Signs Date Time Temp Pulse Resp B/P (MAP) Pulse Ox O2 Delivery O2 Flow Rate FiO2 11/03/20 16:17 36.2 88 20 118/68 (85) 95 Room Air 11/03/20 12:26 36.8 60 20 115/55 (75) 95 Room Air 11/03/20 09:00 Room Air 11/03/20 08:18 36.4 72 20 96/55 (69) 93 Room Air 11/03/20 03:19 36.2 74 18 121/64 (83) 95 Room Air 11/03/20 00:06 36.3 70 18 110/52 (71) 96 Nasal Cannula 2.00 11/02/20 20:48 36.2 74 19 149/78 (101) 96 Nasal Cannula 2.00 11/02/20 20:40 Nasal Cannula 2.00 I & O 11/03/20 06:59 Intake Total 2955 ml Output Total 2200 ml Balance 755 ml Capillary Refill : Less Than 3 Seconds General Appearance: No Apparent Distress HEENT: PERRL/EOMI Neck: Full Range of Motion Respiratory: Chest Non Tender Cardiovascular: Regular Rate, Rhythm Gastrointestinal: normal bowel sounds, soft, tenderness Extremity: Normal Capillary Refill Neurologic/Psychiatric: Alert Skin: Normal Color Lymphatic: No Adenopathy Results Lab Laboratory Tests 11/03/20 06:22: White Blood Count 9.2, Red Blood Count 3.84, Hemoglobin 11.2L, Hematocrit 36, Mean Corpuscular Volume 94, Mean Corpuscular Hemoglobin 29, Mean Corpuscular Hemoglobin Concent 31L, Red Cell Distribution Width 13.8, Platelet Count 259, Mean Platelet Volume 10.2, Immature Granulocyte % (Auto) 1, Neutrophils (%) (Auto) 78H, Lymphocytes (%) (Auto) 12, Monocytes (%) (Auto) 7, Eosinophils (%) (Auto) 2, Basophils (%) (Auto) 0, Neutrophils # (Auto) 7.2, Lymphocytes # (Auto) 1.1, Monocytes # (Auto) 0.7, Eosinophils # (Auto) 0.2, Basophils # (Auto) 0.0, Immature Granulocyte # (Auto) 0.1, Sodium Level 139, Potassium Level 3.6, Chloride Level 103, Carbon Dioxide Level 27, Anion Gap 9, Blood Urea Nitrogen 7, Creatinine 0.87, Estimat Glomerular Filtration Rate > 60, BUN/Creatinine Ratio 8, Glucose Level 113H, Calcium Level 8.2L, Corrected Calcium 9.0, Total Bilirubin 0.4, Aspartate Amino Transf (AST/SGOT) 58H, Alanine Aminotransferase (ALT/SGPT) 67H, Alkaline Phosphatase 46, Total Protein 6.1L, Albumin 3.0L Microbiology 10/31/20 MRSA Screen - Final, Complete MRSA not isolated 10/31/20 Blood Culture - Preliminary, Resulted No growth Assessment/Plan Assessment/Plan Assess & Plan/Chief Complaint s/p lap samy for acute calculous cholecystitis. increase ambulation. home soon. f/u this tuesday(11/07) for drain removal SILVIA ANDRADE MD Nov 03, 2020 17:17
[2020-11-03 17:45] VITALS: BP 118/68
== END 2020-11-03 17:45 | disposition home or self-care (01) ==
LOC: EDUNIT# 09:59 → ER 10:01 → UNDOADMIN 12:04 → 4TH 12:04 → SDC 12:04 → UNDODISIN 11-03 17:45 → SDC 11-03 17:45
PROVIDERS: ATTEND Surgery
DX: K80.12 Calculus of gallbladder with acute and chronic cholecystitis without obstruction (principal); K76.9 Liver disease, unspecified; I10 Essential (primary) hypertension; G47.33 Obstructive sleep apnea (adult) (pediatric); E11.9 Type 2 diabetes mellitus without complications; E66.01 Morbid (severe) obesity due to excess calories; Z68.42 Body mass index [BMI] 45.0-49.9, adult; Z79.84 Long term (current) use of oral hypoglycemic drugs; Z85.3 Personal history of malignant neoplasm of breast; Z79.899 Other long term (current) drug therapy; Z92.21 Personal history of antineoplastic chemotherapy; Z92.3 Personal history of irradiation
CPT/HCPCS: 36415; 74178; 76705; 80053; 82947; 83605; 83735; 85025; 86141; 87040; 87081; 87636; 88304; 96361; 96365; 96375

== ENCOUNTER → 2020-12-08 | Outpatient (CLI) | payer OTHER ==
[~2020-12-08] MED LIST changes: +ACET-2267 PO; +CATHETER FLUSH 10 ML SYR IV PRN; +HOLD METFORMIN - RECEIVED CONTRAST 20 ML VIAL IV SCH; +HYDR-3817 PO; +IOHEXOL 350 MG/ML 100 ML (OMNIPAQUE 350) VIAL IV ONE; +METF-397 PO; +NS 100 ML (IVPB) BAG IV ONE
[2020-12-08 12:46] LABS: HEMATOCRIT 43 % (35-52); HEMOGLOBIN 13.8 g/dL (11.5-16.0); MEAN CORPUSCULAR HEMOGLOBIN 29 pg (25-34); MEAN CORPUSCULAR HGB CONC 32 g/dL (32-36); MEAN CORPUSCULAR VOLUME 91 fL (80-99); MEAN PLATELET VOLUME 10.7 fL (9.0-12.2); PLATELET COUNT 398 10^3/uL (130-400)
[2020-12-08 13:03] LABS: ALBUMIN 3.4 GM/DL (3.2-4.5); POTASSIUM 4.3 MMOL/L (3.6-5.0)
[2020-12-08 13:04] LABS: CALCIUM 10.1 MG/DL (8.5-10.1)
[2020-12-08 13:05] LABS: TOTAL PROTEIN 8.5 GM/DL (6.4-8.2)
[2020-12-08 13:07] LABS: BILIRUBIN,TOTAL 5.2 MG/DL (0.1-1.0)
[2020-12-08 13:09] LABS: CREATININE SERUM 0.99 MG/DL (0.60-1.30)
--- NOTE | 2020-12-08 15:12 | Diagnostic Imaging Report ---
EXAMINATION: CT abdomen and pelvis with and without intravenous contrast. TECHNIQUE: Precontrast acquisitions were acquired through the abdomen and pelvis. Multiple contiguous axial images were obtained through the abdomen and pelvis after the administration of intravenous contrast. All CT scans use one or more of the following dose optimizing techniques: Automated exposure control, MA and/or KvP adjustment based on patient size and exam type or iterative reconstruction. HISTORY: Abdominal pain status post cholecystectomy. COMPARISON: CT abdomen and pelvis 10/31/2020. FINDINGS: Lung bases: The lung bases are clear. Solid organs: The liver is normal without focal lesion. There is a mild amount of fluid and stranding within the cholecystectomy bed. There is no biliary ductal dilation. Pancreas is normal. Spleen is normal. Stable nodular thickening of the adrenal glands. The kidneys are normal without hydronephrosis. Bowel: There is inflammatory stranding of the second portion of the duodenum in the right upper quadrant. There is no bowel obstruction. There is scattered colonic diverticulosis. The appendix is normal. Peritoneum: There is mild free fluid in the pelvis. No intra-abdominal free air. No suspicious lymphadenopathy. Vasculature: Calcification of the aorta without aneurysm. Musculoskeletal: Degenerative changes of the spine without suspicious osseous lesion or compression fracture. Pelvis: The uterus and adnexa are normal. The urinary bladder is normal. IMPRESSION: 1. Fluid and stranding within the cholecystectomy bed. Given history of cholecystectomy in October, the persistent amount of fluid and stranding does raise a concern for a bile leak. Consider further evaluation with nuclear medicine HIDA scan. 2. Mild free fluid in the pelvis which may represent physiologic fluid or sequela of bile leak. 3. Likely reactive inflammation of the duodenum. Dictated by: Dictated on workstation # [id number]
== END ==
LOC: RAD 11:35
PROVIDERS: ATTEND Nurse Practitioner
DX: R18.8 Other ascites (principal); Z90.49 Acquired absence of other specified parts of digestive tract
CPT/HCPCS: 36415; 74178; 80053; 82150; 83690; 85027

== ENCOUNTER → 2020-12-23 | Outpatient (CLI) | payer OTHER ==
[~2020-12-23] VITALS: Ht 165.1 cm; Wt 145.0 kg
[~2020-12-23] MED LIST changes: +D5 NS 1000 ML IV SOLUTION 1,000 ML IV ONE; +D5 NS 1000 ML IV SOLUTION 1,000 ML IV SCH; +DIATRIZOATE MEGLUM/SODIUM 37% 120 ML (GASTROGRAFIN) PO ONE; +ONDANSETRON 4 MG/2 ML (SDV) Z0FRAN IV ONE; +ONDANSETRON 4 MG/2 ML (SDV) Z0FRAN ONE
[2020-12-23 08:25] VITALS: BP 126/72
[2020-12-23 08:36] LABS: BASOPHILS # (AUTO) 0.1 10^3/uL (0.0-0.1); BASOPHILS % (AUTO) 0 % (0-10); EOSINOPHILS # (AUTO) 0.1 10^3/uL (0.0-0.3); EOSINOPHILS % (AUTO) 1 % (0-10); HEMATOCRIT 39 % (35-52); HEMOGLOBIN 12.1 g/dL (11.5-16.0); LYMPHOCYTES # (AUTO) 1.4 10^3/uL (1.0-4.0); LYMPHOCYTES % (AUTO) 10 % (12-44); MEAN CORPUSCULAR HEMOGLOBIN 29 pg (25-34); MEAN CORPUSCULAR HGB CONC 31 g/dL (32-36); MEAN CORPUSCULAR VOLUME 93 fL (80-99); MEAN PLATELET VOLUME 10.7 fL (9.0-12.2); MONOCYTES # (AUTO) 1.2 10^3/uL (0.0-1.0); MONOCYTES % (AUTO) 8 % (0-12); NEUTROPHILS # (AUTO) 11.5 10^3/uL (1.8-7.8); NEUTROPHILS % (AUTO) 80 % (42-75); PLATELET COUNT 414 10^3/uL (130-400); WHITE BLOOD COUNT 14.4 10^3/uL (4.3-11.0)
[2020-12-23 08:58] LABS: ALBUMIN 3.2 GM/DL (3.2-4.5); BILIRUBIN,TOTAL 2.2 MG/DL (0.1-1.0); CALCIUM 10.4 MG/DL (8.5-10.1); CREATININE SERUM 0.92 MG/DL (0.60-1.30); POTASSIUM 4.1 MMOL/L (3.6-5.0); TOTAL PROTEIN 8.8 GM/DL (6.4-8.2)
[2020-12-23 09:27] LABS: ANISOCYTOSIS SLIGHT; BAND NEUTROPHILS 1 %; BASOPHILS % (MANUAL) 0 %; EOSINOPHILS % (MANUAL) 0 %; LYMPHOCYTES % (MANUAL) 13 %; MONOCYTES % (MANUAL) 8 %; NEUTROPHILS % (MANUAL) 78 %
--- NOTE | 2020-12-23 16:45 | Diagnostic Imaging Report ---
PROCEDURE: CT abdomen and pelvis with and without contrast. TECHNIQUE: Precontrast acquisitions were acquired through the abdomen and pelvis. Multiple contiguous axial images were obtained through the abdomen and pelvis after the administration of intravenous contrast. Auto Exposure Controls were utilized during the CT exam to meet ALARA standards for radiation dose reduction. INDICATION: Constipation and elevated liver function tests. Patient has a stent in the common bile duct and pancreas. COMPARISON: Correlation is made with prior CT from 12/08/2020. FINDINGS: Imaging through the lung bases does show some linear atelectasis or scarring in the right and left lower lobes. Since the prior study, patient has had a common duct stent placed. There is pneumobilia present. Gallbladder is surgically absent. No fluid in the gallbladder fossa is seen. There are small gas bubbles in the gallbladder fossa. No definite biliary ductal dilatation is seen. There is an area of ill-defined mixed density in the left lobe of the liver, approximately 5.3 cm in diameter. The pancreas and spleen are unremarkable. Both adrenal glands are enlarged, similar to exam from one month earlier. Kidneys are unremarkable. Aorta is nonaneurysmal. Bowel loops are normal in caliber. There is a small amount of free fluid in the pelvis. No free fluid in the abdomen is identified. The bladder and uterus are unremarkable. IMPRESSION: Placement of a common duct stent when compared with prior CT. There is a small amount of pneumobilia present. No discrete fluid collection is identified. There is minimal free fluid in the pelvis. There is an ill-defined area of mixed echogenicity in the left lobe of the liver. This was not definitely seen on prior CT, and possibility of a developing abscess cannot be entirely excluded. No drainable collection is seen at this time, but close follow-up is recommended. Dictated by: Dictated on workstation # [id number]
== END ==
LOC: SDC 07:53
PROVIDERS: ATTEND Family Medicine
DX: K76.89 Other specified diseases of liver (principal); E86.0 Dehydration; K83.1 Obstruction of bile duct; K59.00 Constipation, unspecified; R94.5 Abnormal results of liver function studies; Z96.89 Presence of other specified functional implants
CPT/HCPCS: 36415; 74178; 80053; 85007; 85027; 96360; 96361

== ENCOUNTER → 2020-12-26 | Outpatient (CLI) | payer OTHER ==
[~2020-12-26] MED LIST changes: +BUPR-168 PO; -CATHETER FLUSH 10 ML SYR IV PRN; +CIPR500T5 PO; -D5 NS 1000 ML IV SOLUTION 1,000 ML IV ONE; -D5 NS 1000 ML IV SOLUTION 1,000 ML IV SCH; -DIATRIZOATE MEGLUM/SODIUM 37% 120 ML (GASTROGRAFIN) PO ONE; -HOLD METFORMIN - RECEIVED CONTRAST 20 ML VIAL IV SCH; -IOHEXOL 350 MG/ML 100 ML (OMNIPAQUE 350) VIAL IV ONE; +LACT10SO33 PO; +METR-145 PO; -NS 100 ML (IVPB) BAG IV ONE; +ONDA4TAB11 PO; -ONDANSETRON 4 MG/2 ML (SDV) Z0FRAN IV ONE; -ONDANSETRON 4 MG/2 ML (SDV) Z0FRAN ONE
--- NOTE | 2020-12-26 09:56 | Diagnostic Imaging Report ---
PROCEDURE: CT abdomen and pelvis without contrast. TECHNIQUE: Multiple contiguous axial images were obtained through the abdomen and pelvis without the use of intravenous contrast. Auto Exposure Controls were utilized during the CT exam to meet ALARA standards for radiation dose reduction. INDICATION: Followup CT. Patient has questionable developing abscess in the liver. Correlation is made with CT study from 12/23/2020. A linear atelectasis right lung base is noted. Pneumobilia with common duct stent is again seen. Previously noted ill-defined low density left lobe of liver is again noted however not as well seen on noncontrast CT. This masslike region measures approximately 5.4 cm. This currently does not appear to be fluid density. Pancreas and spleen appear stable. Bilateral adrenal enlargement is again noted. Kidneys are without calculi or hydronephrosis. Aorta is nonaneurysmal. Small and large bowel loops are normal caliber. There is diverticulosis of the descending and sigmoid colon. Small amount of free fluid in the pelvis. Uterus and bladder are unremarkable. IMPRESSION: Overall stable noncontrast CT when compared to exam from several days earlier. The area of masslike low density in the left lobe of the liver appears to be fairly stable. MRI liver protocol would be useful for further characterization if clinically indicated. No other significant abnormality is seen. Dictated by: Dictated on workstation # [id number]
== END ==
LOC: RAD 08:41
PROVIDERS: ATTEND Family Medicine
DX: K76.89 Other specified diseases of liver (principal); K75.0 Abscess of liver
CPT/HCPCS: 74176

== ENCOUNTER 2020-12-30 10:42 | Inpatient (IN) | payer OTHER ==
[~2020-12-30] VITALS: Ht 172.7 cm; Wt 129.4 kg
[~2020-12-30 10:42] MED LIST changes: -BUPR-168 PO; -CIPR500T5 PO; -LACT10SO33 PO; -METR-145 PO; -ONDA4TAB11 PO
--- OUTSIDE RECORDS SUMMARY | 2020-12-30 12:38 | XMS REPORT | CCD ---
Author Author Cecilia Garcia Organization Divya Garcia MD, [facility] Address [address] [place] [address] Phone Care Team Providers Care Medical Claims Analyst Name Role Phone Divya Garcia PP Unavailable CCM Unavailable Summary Purpose Interface Exchange Insurance Providers Payer name Policy type / Coverage type Covered green party ID Effective Begin Date Effective End Date [employer] Insurance [id number] Unknown Family history Sister Diagnosis Age At Onset Colon cancer Unknown lymphoma Unknown Sister Diagnosis Age At Onset Hypothyroid Unknown Father Diagnosis Age At Onset Skin cancer Unknown Cancer Unknown Hypertension Unknown Coronary Artery Disease Unknown Mother Diagnosis Age At Onset Stroke Unknown Diabetes mellitus Type 2 Unknown Cancer Unknown Social History Social History Element Codes Description Effective Dates Marital status Unknown Single 02/26/2015 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 Never smoker 02/26/[address]: 240959336 Never drinks alcohol 2014 Allergies, Adverse Reactions, Alerts Substance Reaction Codes Entered Date Inactivated Date Status * OTHER REACTION - SEE ANSWER BOX valtrex- causes rash Unknown 02/26/2015 No Inactive Date Active Problems Condition Codes Effective Dates Condition Status Abdominal pain ICD-10: R10.9 ICD-9: 789.00 12/22/2020 Active Biliary stricture ICD-10: K83.1 ICD-9: 576.2 12/22/2020 Active Dehydration ICD-10: E86.0 ICD-9: 276.51 12/22/2020 Active Elevated liver enzymes ICD-10: R74.8 ICD-9: 790.5 12/22/2020 Active Other postoperative complication involving digestive s ystem ICD-10: K91.89 ICD-9: 997.49 12/22/2020 Active Superficial thrombophlebitis ICD-10: I80.9 ICD-9: 451.9 08/05/2020 Active Encounter for general adult medical examination with a bnormal findings ICD-10: Z00.01 ICD-9: V70.0 02/25/2015 Active Personal history of malignant neoplasm of breast ICD-1 0: Z85.3 ICD-9: V10.3 02/25/2015 Active Type 2 diabetes mellitus without complications ICD-10: E11.9 ICD-9: 250.00 01/14/2016 Active Vitamin D deficiency, unspecified ICD-10: E55.9 ICD-9: 268.9 01/14/2016 Active Bilateral primary osteoarthritis of knee ICD-10: M17.0 ICD-9: 715.96 12/26/2018 Active Mastodynia ICD-10: N64.4 ICD-9: 611.71 12/26/2018 Active Pain in left knee ICD-10: M25.562 ICD-9: 719.46 12/26/2018 Active Morbid (severe) obesity due to excess calories ICD-10: E66.01 ICD-9: 278.01 01/14/2016 Active Nonscarring hair loss, unspecified ICD-10: L65.9 ICD-9: 704.00 02/25/2015 Active Acute laryngopharyngitis ICD-10: J06.0 ICD-9: 465.0 05/06/2017 Active Fever, unspecified ICD-10: R50.9 ICD-9: 780.60 05/06/2017 Active Other malaise ICD-10: R53.81 ICD-9: 780.79 05/06/2017 Active Nontoxic multinodular goiter ICD-10: E04.2 ICD-9: 241.9 01/14/2016 Active Impaired glucose tolerance (oral) ICD-10: R73.02 ICD-9: 790.22 02/25/2015 Active Localized edema ICD-10: R60.0 ICD-9: 782.3 10/06/2016 Active Encounter for screening mammogram for malignant neopla sm of breast ICD-10: Z12.31 ICD-9: V76.12 01/26/2016 Active Diabetes Unknown 03/31/2015 Active Changes in skin texture ICD-10: R23.4 ICD-9: 782.8 02/25/2015 Active Nontoxic goiter, unspecified ICD-10: E04.9 ICD-9: 240.9 02/25/2015 Active Medications Medication Codes Instructions Start Date Stop Date Status Fill Instructions hydrocodone 7.5 mg-acetaminophen 325 mg tablet RxNorm: 95421 5 Take 1 Tablet(s) Oral four times a day 12/25/2020 01/23/2021 Active ondansetron 4 mg disintegrating tablet RxNorm: 157203 1 Tablet(s) Oral Q6 as needed 12/24/2020 01/22/2021 Active Flagyl 500 mg tablet RxNorm: 767673 1 Tablet(s) Oral three time s a day 12/24/2020 12/30/2020 Active bupropion HCl 75 mg tablet RxNorm: 575208 1 Tablet(s) Oral two times a day 12/24/2020 01/22/2021 Active lactulose 10 gram/15 mL (15 mL) oral solution RxNorm: 339789 15 Milliliter(s) Oral every day take dose daily until has BM then change to PRN 12/24/2020 01/22/2021 Active 1 bottle Cipro 500 mg tablet RxNorm: 510712 1 Tablet(s) Oral two times a day 12/24/2020 12/30/2020 Active Cipro 500 mg tablet RxNorm: 934556 1 Tablet(s) Oral two times a day 12/24/2020 12/24/2020 Inactive ondansetron 4 mg disintegrating tablet RxNorm: 420620 1 Tablet(s) Oral Q6 as needed 12/24/2020 12/24/2020 Inactive Flagyl 500 mg tablet RxNorm: 677730 1 Tablet(s) Oral three time s a day 12/24/2020 12/24/2020 Inactive lactulose 10 gram/15 mL (15 mL) oral solution RxNorm: 826358 15 Milliliter(s) Oral every day take dose daily until has BM then change to PRN 12/24/2020 12/24/2020 Inactive 1 bottle bupropion HCl 75 mg tablet RxNorm: 905874 1 Tablet(s) Oral two times a day 12/24/2020 12/24/2020 Inactive fluconazole 150 mg tablet RxNorm: 442738 Take 1 Tablet(s) Oral every other day 12/22/2020 12/27/2020 Active nystatin 100,000 unit/mL oral suspension RxNorm: 603341 Take 5 Milliliter(s) Oral four times a day 12/22/2020 12/31/2020 Active Diflucan 150 mg tablet RxNorm: 961799 Take 1 Tablet(s) Oral jeffy ry day 12/04/2020 12/04/2020 Inactive Diflucan 150 mg tablet RxNorm: 838615 Take 1 Tablet(s) Oral jeffy ry day 12/04/2020 12/10/2020 Inactive cephalexin 500 mg tablet RxNorm: 485484 1 Tablet(s) Oral three times a day 08/05/2020 08/12/2020 Inactive metformin 500 mg tablet RxNorm: 866146 TKAE 1/2 TABLET BY MOUTH TWICE DAILY 05/12/2020 02/05/2021 Active Vitamin D2 1,250 mcg (50,000 unit) capsule RxNorm: 1435351 1 Capsule(s) Oral once a week 04/15/2020 07/14/2020 Inactive tramadol 50 mg tablet RxNorm: 721123 1 Tablet(s) Oral t hree times a day as needed arthritis pain 03/24/2020 07/21/2020 Inactive metformin 500 mg tablet RxNorm: 414169 TKAE 1/2 TABLET BY MOUTH TWICE DAILY 02/11/2020 05/10/2020 Inactive metformin 500 mg tablet RxNorm: 015144 TABLET(S) TAKE 1 /2 TABLET BY MOUTH TWICE DAILY 07/12/2019 02/10/2020 Inactive metformin 500 mg tablet RxNorm: 534021 TABLET(S) TAKE 1 /2 TABLET BY MOUTH TWICE DAILY 06/19/2019 07/11/2019 Inactive Keflex 500 mg capsule RxNorm: 348391 1 Capsule(s) Oral three ti mes a day 05/03/2019 05/02/2019 Inactive cephalexin 500 mg tablet RxNorm: 547912 1 Tablet(s) Oral three times a day 05/03/2019 05/10/2019 Inactive interactions reviewe d, fill the medication as written please Bactrim DS 800 mg-160 mg tablet RxNorm: 983484 1 Tablet(s) Oral two times a day 03/23/2019 03/22/2019 Inactive Bactrim DS 800 mg-160 mg tablet RxNorm: 292146 1 Tablet(s) Oral two times a day 03/23/2019 04/01/2019 Inactive Vitamin D3 5,000 unit tablet RxNorm: 274582 1 Tablet(s) PO daily No Stop Date Active Voltaren 1 % topical gel RxNorm: 394253 2 Gram(s) TOP QID 12/26/2018 04/24/2019 Inactive metformin 500 mg tablet RxNorm: 085381 TABLET(S) TAKE 1 /2 TABLET BY MOUTH TWICE DAILY 10/30/2018 06/18/2019 Inactive metformin 500 mg tablet RxNorm: 389763 TABLET(S) TAKE 1 /2 TABLET BY MOUTH TWICE DAILY 05/18/2018 10/29/2018 Inactive metformin 500 mg tablet RxNorm: 994837 Tablet(s) TAKE 1 /2 TABLET BY MOUTH TWICE DAILY 10/13/2017 04/10/2018 Inactive metformin 500 mg tablet RxNorm: 827771 TAKE 1/2 TABLET BY MOUTH TWICE DAILY 09/02/2017 10/12/2017 Inactive Phenergan with Codeine Syrup RxNorm: 5-10 Milliliter(s) PO QID as needed 05/06/2017 10/29/2018 Inactive Kenalog 40 mg/mL suspension for injection RxNorm: 3429956 1 Mill iliter(s) Inj 05/06/2017 05/06/2017 Inactive Tamiflu 75 mg capsule RxNorm: 609969 1 Capsule(s) PO BID 05/06/2017 0 05/10/2017 Inactive prednisone 20 mg tablet RxNorm: 843896 2 Tablet(s) PO daily 018 05/10/2017 Inactive cefdinir 300 mg capsule RxNorm: 440044 1 Capsule(s) PO BID 05/06/19 18 05/15/2017 Inactive Zithromax Z-Xavier 250 mg tablet RxNorm: 959554 1 Tablet(s) PO UD 04/2505/17/2018 Inactive ceftriaxone 500 mg solution for injection RxNorm: 5419076 1 Mill iliter(s) Inj 05/06/2017 05/06/2017 Inactive metformin 500 mg tablet RxNorm: 641875 TAKE 1/2 TABLET BY MOUTH TWICE DAILY 11/29/2016 10/12/2017 Inactive Vitamin D2 50,000 unit capsule RxNorm: 072383 1 Capsule(s) PO QW 04/08/2017 Inactive hydrochlorothiazide 25 mg tablet RxNorm: 970099 1 Table t(s) PO daily as needed edema 10/06/2016 02/02/2017 Inactive potassium chloride ER 10 mEq tablet,extended release RxNorm: 695332 1 Tablet(s) PO daily as needed when taking hctz 10/06/2016 02/02/2017 Inactive metformin 500 mg tablet RxNorm: 203604 1/2 Tablet(s) PO BID 017 10/12/2017 Inactive prednisone 20 mg tablet RxNorm: 205865 2 Tablet(s) PO P RN at onset of exposure to insect bite 10/06/2016 12/25/2018 Inactive tramadol 50 mg tablet RxNorm: 796391 1 Tablet(s) PO TID as needed arthritis pain 10/06/2016 02/02/2017 Inactive metformin 500 mg tablet RxNorm: 948246 1/2 TABLET(S) PO BID 016 10/05/2016 Inactive Vitamin D2 50,000 unit capsule RxNorm: 748142 1 Capsule(s) PO QW 08/26/2015 Inactive Vitamin D3 5,000 unit tablet RxNorm: 509757 1 Tablet(s) PO daily 01/14/2016 Inactive metformin 500 mg tablet RxNorm: 425892 1/2 Tablet(s) PO BID 015 03/02/2015 Inactive Vitamin D2 50,000 unit capsule RxNorm: 193112 1 Capsule(s) PO QW 05/28/2015 Inactive metformin 500 mg tablet RxNorm: 360830 1/2 Tablet(s) PO BID 015 02/25/2016 Inactive Vitamin D2 50,000 unit capsule RxNorm: 404835 1 Capsule(s) PO QW 03/02/2015 Inactive Xiidra 5 % eye drops in a dropperette RxNorm: 5101604 1 ophthalm ic (eye) BID 12/26/2018 Active Vitamin D3 1,000 unit tablet RxNorm: 322088 1 Tablet(s) PO daily 12/25/2018 Inactive Medication Administered Medication Codes Instructions Start Date Status ceftriaxone 500 mg solution for injection RxNorm: 8136197 1Milli liter 05/06/2017 No longer Active Kenalog 40 mg/mL suspension for injection RxNorm: 2442421 1Milli liter 05/06/2017 No longer Active Immunizations Vaccine Codes Date Status Influenza CVX: 135 01/22/2015 Tetanus, Diptheria, Pertussis CVX: 04/25/2012 Tetanus/Diptheria CVX: 04/25/2012 Results Observation Observation Code Item Item Code Result Date S ervice Location Comp Metabolic Wqi649 NA 140 mEq/L 04/10/2020 Unkn own Comp Metabolic Ejz744 K 4.4 mEq/L 04/10/2020 Unkn own Comp Metabolic Pgn256 CL 101 mEq/L 04/10/2020 Unkn own Comp Metabolic Dxg935 CO2 31.0 mEq/L 04/10/2020 Unk nown Comp Metabolic Rex514 ANION GAP 12 04/10/2020 Unkn own Comp Metabolic Hvi065 GLUCOSE 105 mg/dL 04/10/2020 Unkn own Comp Metabolic Egw770 Creat 0.9 mg/dL 04/10/2020 Unkn own Comp Metabolic Iqb269 eGFR 66 ml/min/1.73m2 04/10/20 20 Unknown Comp Metabolic Sxm147 BUN 18 mg/dL 04/10/2020 Unkn own Comp Metabolic Gvk285 B/C Ratio 19.6 Ratio 04/10/2020 Unk nown Comp Metabolic Iqt101 CALCIUM 9.3 mg/dL 04/10/2020 Unkn own Comp Metabolic Lyq758 ALK PHOS 64 U/L 04/10/2020 Unkn own Comp Metabolic Pac166 AST(SGOT) 14 U/L 04/10/2020 Unkn own Comp Metabolic Vco148 ALT(SGPT) 13 U/L 04/10/2020 Unkn own Comp Metabolic Ckf791 BILI T 0.5 mg/dL 04/10/2020 Unkn own Comp Metabolic Jpc499 ALBUMIN 3.8 g/dL 04/10/2020 Unkn own Comp Metabolic Piz014 TPRO 6.8 g/dL 04/10/2020 Unkn own Comp Metabolic Ckm836 GLOB 3.0 g/dL 04/10/2020 Unkn own Comp Metabolic Cqn090 A/G Ratio 1.2 Ratio 04/10/2020 Unkn own Comp Metabolic Mqa985 Osmo 282 mOsmo 04/10/2020 Unkn own Tsh Ord6 TSH (3rd IS) 1.67 uIU/mL 04/10/2020 Unkn own %Hba1C Vzp967 % HbA1c 05635-7 6.0 % 04/10/2020 Unknown %Hba1C Cib708 Gluc Ave 126 mg/dL 04/10/2020 Unknown Cbc With Differential Ord2 WBC 9.37 K/ul 04/10/20 Unknown Cbc With Differential Ord2 RBC 4.58 M/ul 04/10/20 Unknown Cbc With Differential Ord2 HGB 14.3 g/dl 04/10/20 Unknown Cbc With Differential Ord2 Neut% 67.0 % 04/10/20 Unknown Cbc With Differential Ord2 HCT 44.0 % 04/10/20 Unknown Cbc With Differential Ord2 MCV 96.1 fl 04/10/20 Unknown Cbc With Differential Ord2 Lymph% 23.7 % 04/10/20 Unknown Cbc With Differential Ord2 MCH 31.2 pg 04/10/20 Unknown Cbc With Differential Ord2 [place]% 7.3 % 04/10/20 Unknown Cbc With Differential Ord2 MCHC 32.5 pg 04/10/20 Unknown Cbc With Differential Ord2 Eos% 1.6 % 04/10/20 Unknown Cbc With Differential Ord2 Baso% 0.4 % 04/10/20 Unknown Cbc With Differential Ord2 PLT 316 K/ul 04/10/20 Unknown Cbc With Differential Ord2 RDW 14.1 % 04/10/20 Unknown Cbc With Differential Ord2 Neut ABS# 6.28 K/ul 04/10/20 Unknown Cbc With Differential Ord2 Lymph ABS# 2.22 K/ul 020 Unknown Cbc With Differential Ord2 [place] ABS# 0.7 K/ul 04/10/20 Unknown Cbc With Differential Ord2 Eos ABS# 0.2 K/ul 04/10/20 Unknown Cbc With Differential Ord2 Baso ABS# 0.0 K/ul 04/10/20 Unknown Lipid Ord30 CHOL 169 mg/dL 04/10/2020 Unknown Lipid Ord30 HDL 40.0 mg/dl 04/10/2020 Unknown Lipid Ord30 TRIG 107 mg/dL 04/10/2020 Unknown Lipid Ord30 LDL 108 mg/dL 04/10/2020 Unknown Lipid Ord30 C/HDL 4.2 Ratio 04/10/2020 Unknown Vitamin D 25 Oh Hcx5173 VITAMIN D, 25 HYDROXY 17.87 ng/mL 04/10/2020 Unknown %Hba1C Huw920 % HbA1c 00263-9 6.0 % 12/22/2018 Unknown %Hba1C Pqa122 Gluc Ave 126 mg/dL 12/22/2018 Unknown Microalbumin Chm255 MicroAlb <0.7 mg/dL 05/26/2018 Unkno wn Comp Metabolic Vjr349 NA 139 mEq/L 05/26/2018 Unkn own Comp Metabolic Kqq213 K 4.7 mEq/L 05/26/2018 Unkn own Comp Metabolic Kiv378 CL 101 mEq/L 05/26/2018 Unkn own Comp Metabolic Buf405 CO2 32.0 mEq/L 05/26/2018 Unk nown Comp Metabolic Ipz398 ANION GAP 11 05/26/2018 Unkn own Comp Metabolic Bjv099 GLUCOSE 98 mg/dL 05/26/2018 Unkn own Comp Metabolic Anu005 Creat 0.9 mg/dL 05/26/2018 Unkn own Comp Metabolic Cir202 eGFR 69 ml/min/1.73m2 05/26/19 19 Unknown Comp Metabolic Axr730 BUN 17 mg/dL 05/26/2018 Unkn own Comp Metabolic Dxx040 B/C Ratio 19.1 Ratio 05/26/2018 Unk nown Comp Metabolic Van589 CALCIUM 9.3 mg/dL 05/26/2018 Unkn own Comp Metabolic Ozj756 ALK PHOS 61 U/L 05/26/2018 Unkn own Comp Metabolic Bdi591 AST(SGOT) 14 U/L 05/26/2018 Unkn own Comp Metabolic Tbu700 ALT(SGPT) 14 U/L 05/26/2018 Unkn own Comp Metabolic Ocv195 BILI T 0.7 mg/dL 05/26/2018 Unkn own Comp Metabolic Wdk283 ALBUMIN 3.8 g/dL 05/26/2018 Unkn own Comp Metabolic Ysf812 TPRO 6.9 g/dL 05/26/2018 Unkn own Comp Metabolic Dte528 GLOB 3.1 g/dL 05/26/2018 Unkn own Comp Metabolic Scl546 A/G Ratio 1.2 Ratio 05/26/2018 Unkn own Comp Metabolic Ffi747 Osmo 279 mOsmo 05/26/2018 Unkn own Lipid Ord30 CHOL 175 mg/dL 05/26/2018 Unknown Lipid Ord30 HDL 41.0 mg/dl 05/26/2018 Unknown Lipid Ord30 TRIG 111 mg/dL 05/26/2018 Unknown Lipid Ord30 LDL 112 mg/dL 05/26/2018 Unknown Lipid Ord30 C/HDL 4.3 Ratio 05/26/2018 Unknown Cbc With Differential Ord2 WBC 8.11 K/ul 05/26/19 19 Unknown Cbc With Differential Ord2 RBC 4.68 M/ul 05/26/19 19 Unknown Cbc With Differential Ord2 HGB 14.3 g/dl 05/26/19 19 Unknown Cbc With Differential Ord2 HCT 43.7 % 05/26/19 19 Unknown Cbc With Differential Ord2 Neut% 62.2 % 05/26/19 19 Unknown Cbc With Differential Ord2 Lymph% 26.6 % 05/26/19 19 Unknown Cbc With Differential Ord2 MCV 93.4 fl 05/26/19 19 Unknown Cbc With Differential Ord2 MCH 30.6 pg 05/26/19 19 Unknown Cbc With Differential Ord2 [place]% 8.5 % 05/26/19 19 Unknown Cbc With Differential Ord2 MCHC 32.7 pg 05/26/19 19 Unknown Cbc With Differential Ord2 Eos% 2.1 % 05/26/19 19 Unknown Cbc With Differential Ord2 PLT 315 K/ul 05/26/19 19 Unknown Cbc With Differential Ord2 Baso% 0.6 % 05/26/19 19 Unknown Cbc With Differential Ord2 RDW 14.5 % 05/26/19 19 Unknown Cbc With Differential Ord2 Neut ABS# 5.04 K/ul 05/26/19 19 Unknown Cbc With Differential Ord2 Lymph ABS# 2.16 K/ul 019 Unknown Cbc With Differential Ord2 [place] ABS# 0.7 K/ul 05/26/19 19 Unknown Cbc With Differential Ord2 Eos ABS# 0.2 K/ul 05/26/19 19 Unknown Cbc With Differential Ord2 Baso ABS# 0.1 K/ul 05/26/19 19 Unknown Tsh Ord6 TSH (3rd IS) 1.58 uIU/mL 05/26/2018 Unkn own %Hba1C Yyj139 % HbA1c 41303-6 5.8 % 05/26/2018 Unknown %Hba1C Bxq337 Gluc Ave 120 mg/dL 05/26/2018 Unknown C A/B FLU 5418279 Influenza A Scr Negative 05/06/2017 Unk nown C A/B FLU 7123427 Influenza B Scr Negative 05/06/2017 Unk nown C A/B FLU 7653625 Influenza Intrp B AG:PRID:PT:NOSE:NOM:IF See Footnote 05/06/2017 Unknown Free T4 Dsn036 FREE T4 1.03 ng/dL 03/02/2017 Unknown %Hba1C Pjs631 % HbA1c 01435-3 5.4 % 03/02/2017 Unknown %Hba1C Kbw328 Gluc Ave 108 mg/dL 03/02/2017 Unknown Comp Metabolic Kvu097 NA 140 mEq/L 03/02/2017 Unkn own Comp Metabolic Khm634 K 4.4 mEq/L 03/02/2017 Unkn own Comp Metabolic Ifs327 CL 101 mEq/L 03/02/2017 Unkn own Comp Metabolic Wkc663 CO2 29.0 mEq/L 03/02/2017 Unk nown Comp Metabolic Eih151 ANION GAP 14 03/02/2017 Unkn own Comp Metabolic Eda152 GLUCOSE 94 mg/dL 03/02/2017 Unkn own Comp Metabolic Zdu881 Creat 1.0 mg/dL 03/02/2017 Unkn own Comp Metabolic Myc293 eGFR 63 ml/min/1.73m2 03/02/20 17 Unknown Comp Metabolic Epx572 BUN 20 mg/dL 03/02/2017 Unkn own Comp Metabolic Hvu094 B/C Ratio 20.6 Ratio 03/02/2017 Unk nown Comp Metabolic Ttg862 CALCIUM 9.2 mg/dL 03/02/2017 Unkn own Comp Metabolic Bsl606 ALK PHOS 67 U/L 03/02/2017 Unkn own Comp Metabolic Vfb050 AST(SGOT) 17 U/L 03/02/2017 Unkn own Comp Metabolic Hpg062 ALT(SGPT) 17 U/L 03/02/2017 Unkn own Comp Metabolic Yuu452 BILI T 0.5 mg/dL 03/02/2017 Unkn own Comp Metabolic Fqb402 ALBUMIN 3.9 g/dL 03/02/2017 Unkn own Comp Metabolic Des419 TPRO 6.8 g/dL 03/02/2017 Unkn own Comp Metabolic Vce909 GLOB 2.9 g/dL 03/02/2017 Unkn own Comp Metabolic Vrx590 A/G Ratio 1.4 Ratio 03/02/2017 Unkn own Comp Metabolic Fub640 Osmo 282 mOsmo 03/02/2017 Unkn own Cbc With Differential Ord2 WBC 9.54 K/ul 03/02/20 17 Unknown Cbc With Differential Ord2 RBC 4.67 M/ul 03/02/20 17 Unknown Cbc With Differential Ord2 HGB 14.6 g/dl 03/02/20 17 Unknown Cbc With Differential Ord2 Neut% 63.7 % 03/02/20 17 Unknown Cbc With Differential Ord2 HCT 44.1 % 03/02/20 17 Unknown Cbc With Differential Ord2 MCV 94.4 fl 03/02/20 17 Unknown Cbc With Differential Ord2 Lymph% 26.0 % 03/02/20 17 Unknown Cbc With Differential Ord2 [place]% 8.3 % 03/02/20 17 Unknown Cbc With Differential Ord2 MCH 31.3 pg 03/02/20 17 Unknown Cbc With Differential Ord2 MCHC 33.1 pg 03/02/20 17 Unknown Cbc With Differential Ord2 Eos% 1.5 % 03/02/20 17 Unknown Cbc With Differential Ord2 PLT 286 K/ul 03/02/20 17 Unknown Cbc With Differential Ord2 Baso% 0.5 % 03/02/20 17 Unknown Cbc With Differential Ord2 RDW 13.8 % 03/02/20 17 Unknown Cbc With Differential Ord2 Neut ABS# 6.08 K/ul 03/02/20 17 Unknown Cbc With Differential Ord2 Lymph ABS# 2.48 K/ul 017 Unknown Cbc With Differential Ord2 [place] ABS# 0.8 K/ul 03/02/20 17 Unknown Cbc With Differential Ord2 Eos ABS# 0.1 K/ul 03/02/20 17 Unknown Cbc With Differential Ord2 Baso ABS# 0.1 K/ul 03/02/20 17 Unknown Tsh Ord6 hTSH II 2.86 uIU/mL 03/02/2017 Unknown Sed Rate Ord21 ESR 25 mm/hr 03/02/2017 Unknown Tibc Ord40 Iron 73 ug/dl 03/02/2017 Unknown Tibc Ord40 UIBC 167 ug/dL 03/02/2017 Unknown Tibc Ord40 TIBC 240 ug/dL 03/02/2017 Unknown Tibc Ord40 Fe-%Sat 30.4 % 03/02/2017 Unknown Comp Metabolic Gpk482 NA 140 mEq/L 10/11/2016 Unkn own Comp Metabolic Qki675 K 4.9 mEq/L 10/11/2016 Unkn own Comp Metabolic Mid607 CL 100 mEq/L 10/11/2016 Unkn own Comp Metabolic Pas707 CO2 32.0 mEq/L 10/11/2016 Unk nown Comp Metabolic Etr849 ANION GAP 13 10/11/2016 Unkn own Comp Metabolic Vby000 GLUCOSE 95 mg/dL 10/11/2016 Unkn own Comp Metabolic Oqr931 Creat 1.0 mg/dL 10/11/2016 Unkn own Comp Metabolic Yqx558 eGFR 64 ml/min/1.73m2 10/12/19 17 Unknown Comp Metabolic Exo031 BUN 17 mg/dL 10/11/2016 Unkn own Comp Metabolic Tyx477 B/C Ratio 17.9 Ratio 10/11/2016 Unk nown Comp Metabolic Ssg444 CALCIUM 9.5 mg/dL 10/11/2016 Unkn own Comp Metabolic Wdj764 ALK PHOS 65 U/L 10/11/2016 Unkn own Comp Metabolic Nuw693 AST(SGOT) 16 U/L 10/11/2016 Unkn own Comp Metabolic Mxq725 ALT(SGPT) 16 U/L 10/11/2016 Unkn own Comp Metabolic Fps064 BILI T 0.6 mg/dL 10/11/2016 Unkn own Comp Metabolic Jug792 ALBUMIN 3.8 g/dL 10/11/2016 Unkn own Comp Metabolic Hvg582 TPRO 6.7 g/dL 10/11/2016 Unkn own Comp Metabolic Ecy822 GLOB 2.9 g/dL 10/11/2016 Unkn own Comp Metabolic Plv955 A/G Ratio 1.3 Ratio 10/11/2016 Unkn own Comp Metabolic Lra600 Osmo 281 mOsmo 10/11/2016 Unkn own Cbc With Differential Ord2 WBC 8.63 K/ul 10/12/19 17 Unknown Cbc With Differential Ord2 RBC 4.97 M/ul 10/12/19 17 Unknown Cbc With Differential Ord2 HGB 15.5 g/dl 10/12/19 17 Unknown Cbc With Differential Ord2 HCT 46.7 % 10/12/19 17 Unknown Cbc With Differential Ord2 Neut% 62.4 % 10/12/19 17 Unknown Cbc With Differential Ord2 MCV 94.0 fl 10/12/19 17 Unknown Cbc With Differential Ord2 Lymph% 26.9 % 10/12/19 17 Unknown Cbc With Differential Ord2 MCH 31.2 pg 10/12/19 17 Unknown Cbc With Differential Ord2 [place]% 8.2 % 10/12/19 17 Unknown Cbc With Differential Ord2 MCHC 33.2 pg 10/12/19 17 Unknown Cbc With Differential Ord2 Eos% 2.0 % 10/12/19 17 Unknown Cbc With Differential Ord2 Baso% 0.5 % 10/12/19 17 Unknown Cbc With Differential Ord2 PLT 301 K/ul 10/12/19 17 Unknown Cbc With Differential Ord2 Neut ABS# 5.39 K/ul 10/12/19 17 Unknown Cbc With Differential Ord2 RDW 14.0 % 10/12/19 17 Unknown Cbc With Differential Ord2 Lymph ABS# 2.32 K/ul 017 Unknown Cbc With Differential Ord2 [place] ABS# 0.7 K/ul 10/12/19 17 Unknown Cbc With Differential Ord2 Eos ABS# 0.2 K/ul 10/12/19 17 Unknown Cbc With Differential Ord2 Baso ABS# 0.0 K/ul 10/12/19 17 Unknown Vitamin D 25 Oh Ehf4419 VITAMIN D, 25 HYDROXY 14.10 ng/mL 10/11/2016 Unknown Lipid Ord30 CHOL 169 mg/dL 10/11/2016 Unknown Lipid Ord30 HDL 44.0 mg/dl 10/11/2016 Unknown Lipid Ord30 TRIG 139 mg/dL 10/11/2016 Unknown Lipid Ord30 LDL 97 mg/dL 10/11/2016 Unknown Lipid Ord30 C/HDL 3.8 Ratio 10/11/2016 Unknown %Hba1C Sjf761 % HbA1c 24873-3 5.5 % 10/11/2016 Unknown %Hba1C Tns006 Gluc Ave 111 mg/dL 10/11/2016 Unknown Tsh Ord6 hTSH II 2.25 uIU/mL 10/11/2016 Unknown Cbc With Differential Ord2 WBC 9.19 K/ul 01/19/20 16 Unknown Cbc With Differential Ord2 RBC 4.72 M/ul 01/19/20 16 Unknown Cbc With Differential Ord2 HGB 14.4 g/dl 01/19/20 16 Unknown Cbc With Differential Ord2 HCT 44.6 % 01/19/20 16 Unknown Cbc With Differential Ord2 Neut% 67.1 % 01/19/20 16 Unknown Cbc With Differential Ord2 MCV 94.5 fl 01/19/20 16 Unknown Cbc With Differential Ord2 Lymph% 23.4 % 01/19/20 16 Unknown Cbc With Differential Ord2 MCH 30.5 pg 01/19/20 16 Unknown Cbc With Differential Ord2 [place]% 7.7 % 01/19/20 16 Unknown Cbc With Differential Ord2 MCHC 32.3 pg 01/19/20 16 Unknown Cbc With Differential Ord2 Eos% 1.5 % 01/19/20 16 Unknown Cbc With Differential Ord2 PLT 295 K/ul 01/19/20 16 Unknown Cbc With Differential Ord2 Baso% 0.3 % 01/19/20 16 Unknown Cbc With Differential Ord2 RDW 14.2 % 01/19/20 16 Unknown Cbc With Differential Ord2 Neut ABS# 6.16 K/ul 01/19/20 16 Unknown Cbc With Differential Ord2 Lymph ABS# 2.15 K/ul 016 Unknown Cbc With Differential Ord2 [place] ABS# 0.7 K/ul 01/19/20 16 Unknown Cbc With Differential Ord2 Eos ABS# 0.1 K/ul 01/19/20 16 Unknown Cbc With Differential Ord2 Baso ABS# 0.0 K/ul 01/19/20 16 Unknown Lipid Ord30 CHOL 172 mg/dL 01/19/2016 Unknown Lipid Ord30 HDL 41.0 mg/dl 01/19/2016 Unknown Lipid Ord30 TRIG 109 mg/dL 01/19/2016 Unknown Lipid Ord30 LDL 109 mg/dL 01/19/2016 Unknown Lipid Ord30 C/HDL 4.2 Ratio 01/19/2016 Unknown Vitamin D 25 Oh Xze3841 VITAMIN D, 25 HYDROXY 33.57 ng/mL 01/19/2016 Unknown %Hba1C Toy812 % HbA1c 84113-0 5.6 % 01/19/2016 Unknown %Hba1C Qxg656 Gluc Ave 114 mg/dL 01/19/2016 Unknown Comp Metabolic Vwk236 NA 136 mEq/L 01/19/2016 Unkn own Comp Metabolic Snm073 K 4.1 mEq/L 01/19/2016 Unkn own Comp Metabolic Lib709 CL 100 mEq/L 01/19/2016 Unkn own Comp Metabolic Erc525 CO2 32.0 mEq/L 01/19/2016 Unk nown Comp Metabolic Pec853 ANION GAP 8 01/19/2016 Unkn own Comp Metabolic Wgo359 GLUCOSE 96 mg/dL 01/19/2016 Unkn own Comp Metabolic Gun654 Creat 0.9 mg/dL 01/19/2016 Unkn own Comp Metabolic Tsl661 eGFR 68 ml/min/1.73m2 01/19/20 16 Unknown Comp Metabolic Ixn651 BUN 19 mg/dL 01/19/2016 Unkn own Comp Metabolic Wep180 B/C Ratio 20.9 Ratio 01/19/2016 Unk nown Comp Metabolic Wfn076 CALCIUM 9.4 mg/dL 01/19/2016 Unkn own Comp Metabolic Sjr939 ALK PHOS 59 U/L 01/19/2016 Unkn own Comp Metabolic Rki875 AST(SGOT) 15 U/L 01/19/2016 Unkn own Comp Metabolic Ncd680 ALT(SGPT) 15 U/L 01/19/2016 Unkn own Comp Metabolic Msd292 BILI T 0.6 mg/dL 01/19/2016 Unkn own Comp Metabolic Xkt861 ALBUMIN 3.9 g/dL 01/19/2016 Unkn own Comp Metabolic Bgh498 TPRO 6.8 g/dL 01/19/2016 Unkn own Comp Metabolic Hpd930 GLOB 2.9 g/dL 01/19/2016 Unkn own Comp Metabolic Mqu648 A/G Ratio 1.4 Ratio 01/19/2016 Unkn own Comp Metabolic Hwi277 Osmo 274 mOsmo 01/19/2016 Unkn own Tsh Ord6 hTSH II 1.47 uIU/mL 01/19/2016 Unknown %Hba1C Biy057 % HbA1c 10636-2 5.9 % 05/30/2015 Unknown %Hba1C Cbh280 Gluc Ave 123 mg/dL 05/30/2015 Unknown Tsh Ord6 hTSH II 1.51 uIU/mL 02/27/2015 Unknown Comp Metabolic Doh349 NA 134 mEq/L 02/27/2015 Unkn own Comp Metabolic Jpc106 K 4.3 mEq/L 02/27/2015 Unkn own Comp Metabolic Ixq461 CL 102 mEq/L 02/27/2015 Unkn own Comp Metabolic Zzc965 CO2 24.0 mEq/L 02/27/2015 Unk nown Comp Metabolic Fwj072 ANION GAP 12 02/27/2015 Unkn own Comp Metabolic Msb571 GLUCOSE 131 mg/dL 02/27/2015 Unkn own Comp Metabolic Ibg951 Creat 1.1 mg/dL 02/27/2015 Unkn own Comp Metabolic Rsp918 eGFR 57 ml/min/1.73m2 02/28/20 15 Unknown Comp Metabolic Tgu461 BUN 17 mg/dL 02/27/2015 Unkn own Comp Metabolic Ibo145 B/C Ratio 16.2 Ratio 02/27/2015 Unk nown Comp Metabolic Ayk993 CALCIUM 9.4 mg/dL 02/27/2015 Unkn own Comp Metabolic Uah044 ALK PHOS 73 U/L 02/27/2015 Unkn own Comp Metabolic Jux990 AST(SGOT) 18 U/L 02/27/2015 Unkn own Comp Metabolic Xhd727 ALT(SGPT) 17 U/L 02/27/2015 Unkn own Comp Metabolic Rpb913 BILI T 0.8 mg/dL 02/27/2015 Unkn own Comp Metabolic Wrq838 ALBUMIN 3.9 g/dL 02/27/2015 Unkn own Comp Metabolic Edy548 TPRO 7.2 g/dL 02/27/2015 Unkn own Comp Metabolic Ugn015 GLOB 3.3 g/dL 02/27/2015 Unkn own Comp Metabolic Lhk636 A/G Ratio 1.2 Ratio 02/27/2015 Unkn own Comp Metabolic Zhe586 Osmo 272 mOsmo 02/27/2015 Unkn own Lipid Ord30 CHOL 197 mg/dL 02/27/2015 Unknown Lipid Ord30 HDL 41.0 mg/dl 02/27/2015 Unknown Lipid Ord30 TRIG 137 mg/dL 02/27/2015 Unknown Lipid Ord30 LDL 129 mg/dL 02/27/2015 Unknown Lipid Ord30 C/HDL 4.8 Ratio 02/27/2015 Unknown Free T4 Her974 FREE T4 1.10 ng/dL 02/27/2015 Unknown Vitamin D 25 Oh Faa7503 VITAMIN D, 25 HYDROXY 10.95 ng/mL 02/27/2015 Unknown Cbc With Differential Ord2 WBC 10.6 K/uL 02/27/20 15 Unknown Cbc With Differential Ord2 LYM 2.3 K/uL 02/27/20 15 Unknown Cbc With Differential Ord2 LYM% 21.8 % 02/27/20 15 Unknown Cbc With Differential Ord2 NEUT/GRAN 7.6 K/uL 02/27/20 15 Unknown Cbc With Differential Ord2 NEUT/GRAN % 71.7 % 2014 Unknown Cbc With Differential Ord2 MID 0.7 K/uL 02/27/20 15 Unknown Cbc With Differential Ord2 MID% 6.5 % 02/27/20 15 Unknown Cbc With Differential Ord2 RBC 5.07 M/uL 02/27/20 15 Unknown Cbc With Differential Ord2 HGB 15.6 g/dL 02/27/20 15 Unknown Cbc With Differential Ord2 HCT 48.6 % 02/27/20 15 Unknown Cbc With Differential Ord2 MCV 96 fL 02/27/20 15 Unknown Cbc With Differential Ord2 MCH 31 pg 02/27/20 15 Unknown Cbc With Differential Ord2 MCHC 32 g/dL 02/27/20 15 Unknown Cbc With Differential Ord2 PLT 330 K/uL 02/27/20 15 Unknown Cbc With Differential Ord2 RDW 14.9 % 02/27/20 15 Unknown %Hba1C Jqs552 % HbA1c 66521-6 7.3 % 02/26/2015 Unknown %Hba1C Kbn714 Gluc Ave 163 mg/dL 02/26/2015 Unknown Procedures Procedure Codes Date ROCEPHIN, PER 250 MG CPT-4: J0696 05/06/2017 TRIAMCINOLONE ACET INJ NOS 10 mg CPT-4: J3301 018 Vital Signs Date Vital 12/22/2020 Blood Pressure 1: 118/72 Code: 8480-6 BMI: 44.2 Code: 59937-6 Heart Rate 1: 110 bpm Height: 5'8" Code: 8302-2 Respiratory Rate: 20 bpm SpO2: 98% Temperature: 36.0 (C) / 96.8 (F) Weight: 291 lbs Code: 78481-2 08/05/2020 Blood Pressure 1: 142/78 Code: 8480-6 BMI: 50.9 Code: 79065-2 Heart Rate 1: 87 bpm Height: 5'8" Code: 8302-2 SpO2: 98% Temperature: 3 6.2 (C) / 97.1 (F) Weight: 335 lbs Code: 07842-1 03/24/2020 Blood Pressure 1: 132/74 Code: 8480-6 BMI: 51.7 Code: 48867-0 Heart Rate 1: 90 bpm Height: 5'8" Code: 8302-2 Respiratory Rate: 15 bpm SpO2: 95% Temperature: 36.4 (C) / 97.5 (F) Weight: 340 lbs Code: 06992-3 12/26/2018 BMI: 52.6 Code: 99002-3 Heart Rate 1: 80 bpm Hei ght: 5'8" Code: 8302-2 Respiratory Rate: 16 bpm SpO2: 98% Weight: 346 lbs Code: 98872-7 05/25/2018 Blood Pressure 1: 122/68 Code: 8480-6 BMI: 52.6 Code: 06417-2 Heart Rate 1: 69 bpm Height: 5'8" Code: 8302-2 SpO2: 96% Weight: 346 lb s Code: 37722-2 05/06/2017 Blood Pressure 1: 134/76 Code: 8480-6 Heart Rate 1: 84 bpm Height: 5'8" Code: 8302-2 SpO2: 96% Temperature: 36.6 (C) / 97.8 (F) Weight: Code: 18938-1 03/02/2017 Blood Pressure 1: 132/72 Code: 8480-6 BMI: 51.2 Code: 06423-9 Heart Rate 1: 67 bpm Height: 5'8" Code: 8302-2 SpO2: 98% Weight: 337 lb s Code: 86652-8 10/06/2016 Blood Pressure 1: 128/76 Code: 8480-6 BMI: 50.9 Code: 18324-0 Heart Rate 1: 70 bpm Height: 5'8" Code: 8302-2 SpO2: 98% Weight: 335 lb s Code: 21190-7 01/15/2016 Blood Pressure 1: 130/72 Code: 8480-6 BMI: 49.3 Code: 99020-4 Heart Rate 1: 68 bpm Height: 5'8" Code: 8302-2 SpO2: 98% Weight: 324 lb s Code: 89049-6 05/29/2015 Blood Pressure 1: 136/80 Code: 8480-6 BMI: 52.2 Code: 66865-3 Heart Rate 1: 69 bpm Height: 5'8" Code: 8302-2 SpO2: 97% Weight: 343 lb s Code: 14765-1 03/31/2015 Blood Pressure 1: 136/78 Code: 8480-6 BMI: 53.4 Code: 61124-2 Heart Rate 1: 69 bpm Height: 5'8" Code: 8302-2 SpO2: 96% Weight: 351 lb s Code: 87762-1 02/26/2015 Blood Pressure 1: 128/80 Code: 8480-6 BMI: 56.3 Code: 76023-5 Heart Rate 1: 79 bpm Height: 5'8" Code: 8302-2 SpO2: 96% Weight: 370 lb s Code: 46605-2 Functional Status No Functional Status data Reason For Visit Reason For Visit Effective Dates Notes Hospital Follow Up 12/22/2020 rash 08/05/2020 diabetes mellitus 03/24/2020 diabetes mellitus 12/26/2018 diabetes mellitus 05/25/2018 fever 05/06/2017 diabetes mellitus 03/02/2017 diabetes mellitus 10/06/2016 diabetes mellitus 01/15/2016 fatigue 05/29/2015 fatigue 03/31/2015 fatigue 02/26/2015 Encounters Encounter Performer Location Codes Date ([id number]) [id number] EST. PATIENT, LEVEL V Diagnosis: Abdominal pain[ICD10: R10.9] Diagnosis: Elevated liver enzymes[ICD10: R74.8] Diagnosis: Biliary stricture[ICD10: K83.1] Diagnosis: Dehydration[ICD10: E86.0] Diagnosis: Other postoperative complication involving digestive system[ICD10: K91.89] Divya Garcia MD, [facility] CPT-4: 52754 ([id number]) 01747 EST. PATIENT, LEVEL III Diagnosis: Superficial phlebitis and thrombophlebitis of left leg[ICD10: I80.02] Deisy Garcia MD, [facility] CPT-4: 22781 08/06/19 ([id number]) PREV VISIT EST AGE 40-64 Diagnosis: Encounter for general adult medical examination with abnormal findings[ICD10: Z00.01] [facility] CPT-4: 56535 03/24/2020 ([id number]) 23125 EST. PATIENT, LEVEL IV Diagnosis: Type 2 diabetes mellitus without complications[ICD10: E11.9] Diagnosis: Mastodynia[ICD10: N64.4] Diagnosis: Pain in left knee[ICD10: M25.562] Diagnosis: Bilateral primary osteoarthritis of knee[ICD10: M17.0] Divya Garcia MD, [facility] CPT-4: 88366 12/26/2018 ([id number]) PREV VISIT EST AGE 40-64 Diagnosis: Encounter for general adult medical examination with abnormal findings[ICD10: Z00.01] Divya Garcia MD, [facility] CPT-4: 28772 05/25/2018 32763 EST. PATIENT, LEVEL III Diagnosis: Other malaise[ICD10: R53.81] Diagnosis: Fever, unspecified[ICD10: R50.9] Diagnosis: Acute laryngopharyngitis[ICD10: J06.0] [facility] CPT-4: 54095 05/06/2017 ([id number]) 79151 EST. PATIENT, LEVEL IV Diagnosis: Type 2 diabetes mellitus without complications[ICD10: E11.9] Diagnosis: Nontoxic multinodular goiter[ICD10: E04.2] Diagnosis: Morbid (severe) obesity due to excess calories[ICD10: E66.01] Diagnosis: Nonscarring hair loss, unspecified[ICD10: L65.9] [facility] CPT-4: 78326 03/02/2017 ([id number]) PREV VISIT EST AGE 40-64 Diagnosis: Encounter for general adult medical examination with abnormal findings[ICD10: Z00.01] [facility] CPT-4: 64122 10/06/2016 ([id number]) 72332 EST. PATIENT, LEVEL IV Diagnosis: Type 2 diabetes mellitus without complications[ICD10: E11.9] Diagnosis: Morbid (severe) obesity due to excess calories[ICD10: E66.01] Diagnosis: Vitamin D deficiency, unspecified[ICD10: E55.9] Diagnosis: Nontoxic multinodular goiter[ICD10: E04.2] [facility] CPT-4: 13805 01/15/2016 ([id number]) 33777 EST. PATIENT, LEVEL III Diagnosis: Type 2 diabetes mellitus without complications[ICD10: E11.9] [facility] CPT-4: 96300 05/29/2015 ([id number] 77235 EST. PATIENT, LEVEL III Diagnosis: Type 2 diabetes mellitus without complications[ICD10: E11.9] Diagnosis: Vitamin D deficiency, unspecified[ICD10: E55.9] [facility] CPT-4: 27723 03/31/2015 ([id number]) PREV VISIT NEW AGE 40-64 Diagnosis: Encounter for general adult medical examination with abnormal findings[ICD10: Z00.01] [facility] CPT-4: 12937 02/26/2015 Plan of Care Planned Activity Notes Codes Status Date Patient Education: Patient Medication Summary Completed 12/25/2020 Visit Plan: Abdominal pain, nausea, post -op complication from Cholecystectomy with stones in biliary tree and pancreatitis - pt is status post stent placement - will send Cecilia for fluids, monitor labs, and depending on imaging - will need to change/initiate antibiotic therapy. Fluids on 12/23/[address] scan of abd/pelvis 12/24/2020. 12/22/2020 Appointment: [facility] [place] (15 min) Moderate 12/22/2020 Patient Education: Patient Medication Summary Completed 12/22/2020 Appointment: Divya Garcia WPtel: [facility] [place] (15 min) Moderate 11/06/2020 Appointment: Div[facility] Garcia [facility] [place] (15 min) Moderate 10/15/2020 Appointment: Div[facility] Garcia [facility] [place] (15 min) Moderate 09/15/2020 Visit Plan: Superficial Thrombophlebitis to Left Upper thigh up towards groin. . Firm and painful. Pt encouraged to continue aspirin use. RX sent to pharmacy for cephalexin due to significant erythema and pain. Encouraged use of warm compresses to site to help alleviate pain. Collaborated care with Dr. Garcia who agrees with US to rule out DVT. Pt notified and going today. 08/05/2020 Appointment: Deisy Lowe WPtel: [address] [phone] [place] (30 min) Complex 08/05/2020 Patient Education: Patient Medication Summary Completed 08/05/2020 Visit Plan: Well Adult - pt was counsele d about diet, exercise, and encouraged to follow a heart healthy diet and increase activity level. The patient was instructed to RTC yearly for well adult exams and PRN for acute illnesses. The pt was also instructed to have yearly labs for check of cholesterol, thyroid, chem panel, CBC, and renal functioning. Obesity - discussed with pt - she needs to cut back on calories, monitor symptoms, check weight monthly. Vit d deficiency - check vit d level Insomnia and back pain - refilled tramadol, she is to try to take 1/2 pill at hs and during day if needed, and use melatonin to augment sleep. 03/24/2020 Appointment: Div[facility] Garcia [facility] [facility] [place] (15 min) Moderate 03/24/2020 Patient Education: Patient Medication Summary Completed 03/24/2020 Patient Education: Diabetes Completed 03/24/2020 Appointment: Div[facility] Garcia [facility] [facility] [place] (15 min) Moderate 03/06/2020 Appointment: Divya Garcia WPtel: [address] [facility] [place] (15 min) Moderate 02/06/2019 Visit Plan: Right breast pain - rx for a mammogram sent with patient - ultrasound if needed as well. Diabetes Mellitus - controlled - per recent FSBS reports. I have recommended for the patient to have follow up labs prior to the next office visit. The patient has been instructed to continue with current medications as previously directed, continue with regular FSBS monitoring to assure continued control of diabetes. Pt to call for any acute concerns, complaints, or if the blood glucose readings are starting to become less controlled. Obesity - discussed with pt - she needs to cut back on calories, monitor symptoms, check weight monthly. Knee pain - rx for voltaren gel sent to the pharmacy. 12/26/2018 Appointment: Divya Garcia WPtel: [facility]5 [facility] [place] (15 min) Moderate 12/26/2018 Patient Education: Patient Medication Summary Completed 12/26/2018 Patient Education: Diabetes Completed 12/26/2018 Care Plan: Unilateral [facility] 54181-4 Pending 12/26/2018 Patient Education: Patient Medication Summary Completed 12/14/2018 Appointment: Divya Garcia WPtel: [facility] [place] (15 min) Moderate 12/13/2018 Visit Plan: Well Adult - pt was counsele d about diet, exercise, and encouraged to follow a heart healthy diet and increase activity level. The patient was instructed to RTC yearly for well adult exams and PRN for acute illnesses. The pt was also instructed to have yearly labs for check of cholesterol, thyroid, chem panel, CBC, and renal functioning. Obesity - discussed with pt - she needs to cut back on calories, monitor symptoms, check weight monthly. Hair loss - check labs - TSH, Free T4 05/25/2018 Appointment: Divya Garcia WPtel: [facility] [place] (15 min) Moderate 05/25/2018 Patient Education: Patient Medication Summary Completed 05/25/2018 Patient Education: Obesity Completed 0 05/25/2018 Appointment: Divya Garcia WPtel: [facility] (15 min) Moderate 07/11/2017 Appointment: Divya Garcia WPtel: [address] [place] [address] (15 min) Moderate 06/28/2017 Visit Plan: URI - Pt advised to increase fluids, vitamin C. Discussed natural and expected course of this diagnosis and need to alert me if symptoms do not follow expected course, or if any worse. RX sent to patient's pharmacy. Allergies - chronic - recommended pt to use allergy medication as prescribed. Pt has been counseled as to the appropriate use of the medication. Pt to call if allergy symptoms are not controlled with the medication. If using nasal spray, instructions as follows: Nasal spray- use twice daily, one spray per nostril twice daily, after 30 minutes, rinse out nose with saline spray.. Use opposite hand per nostril to spray in the nasal steroid allergy spray. 05/06/2017 Appointment: Norma Isbell WPtel: [address] [place] [address] (15 min) Moderate 05/06/2017 Patient Education: Patient Medication Summary Completed 05/06/2017 Visit Plan: Diabetes Mellitus - controll ed - per recent FSBS reports. I have recommended for the patient to have follow up labs prior to the next office visit. The patient has been instructed to continue with current medications as previously directed, continue with regular FSBS monitoring to assure continued control of diabetes. Pt to call for any acute concerns, complaints, or if the blood glucose readings are starting to become less controlled. Hypothyroidism - pt with chronic hypothyroidism, continue with current medication, will monitor pt to signs or symptoms of lack of adequate supplementation. Pt is to continue with current dose of medication unless directed otherwise. Check labs at regular intervals wither q 3 months or q 6 months based on previous levels of control. Hair loss - minoxidil (rogaine) for hair growth - check labs, TSH, iron level, ferritin, ESR 03/02/2017 Appointment: Divya Garcia WPtel: [facility] (15 min) Moderate 03/02/2017 Patient Education: Patient Medication Summary Completed 03/02/2017 Patient Education: Obesity Completed 05/02/2016 Care Plan: Iron Pending 03/02/2017 Appointment: [facility] (15 min) Moderate 01/31/2017 Visit Plan: Well Adult - pt was counsele d about diet, exercise, and encouraged to follow a heart healthy diet and increase activity level. The patient was instructed to RTC yearly for well adult exams and PRN for acute illnesses. The pt was also instructed to have yearly labs for check of cholesterol, thyroid, chem panel, CBC, and renal functioning. Diabetes Mellitus - controlled - per recent FSBS reports. I have recommended for the patient to have follow up labs prior to the next office visit. The patient has been instructed to continue with current medications as previously directed, continue with regular FSBS monitoring to assure continued control of diabetes. Pt to call for any acute concerns, complaints, or if the blood glucose readings are starting to become less controlled. Edema - pt has been advised to elevate legs to prevent dependent edema, compression has been recommended to help to naturally decrease peripheral edema. Diuretic use has been discussed and pt has been instructed in appropriate use of such medication as necessary to further attempt to reduce peripheral edema. HCTZ rx sent to pharmacy Obesity - pt is not interested in weight loss surgery due to several friends having had bad experiences from the surgery. I have recommended some reading on diet changes for the patient. 10/06/2016 Appointment: Divya Garcia [facility]Ptel: [facility] [place] (15 min) Moderate 10/06/2016 Patient Education: Patient Medication Summary Completed 10/06/2016 Patient Education: Obesity Completed 0 10/06/2016 Appointment: Divya Garcia [facility]el: [facility] [facility] [place] (15 min) Moderate 09/15/2016 Appointment: Divya Garcia [facility]Ptel: [facility] [facility] [place] (15 min) Moderate 08/16/2016 Appointment: Divya Garcia WPtel: [address] [facility] [place] (15 min) Moderate 07/15/2016 Patient Education: Patient Medication Summary Completed 01/27/2016 Care Plan: SCREENINGMAMMOGRAPHYCAT [place] O[place] : 88704-7 Pending 01/27/2016 Visit Plan: Diabetes Mellitus - controll ed - per recent FSBS reports. I have recommended for the patient to have follow up labs prior to the next office visit. The patient has been instructed to continue with current medications as previously directed, continue with regular FSBS monitoring to assure continued control of diabetes. Pt to call for any acute concerns, complaints, or if the blood glucose readings are starting to become less controlled. Obesity - pt has lost over 50 pounds in the past 9 month - no additional medications needed at this time, monitor weight - if she hits a plateau, we will then discuss weight loss medications such as contrave or belviq Goiter -check labs 01/15/2016 Appointment: Divya Garcia WPtel: [address] [facility] [place] (15 min) Moderate 01/15/2016 Patient Education: Patient Medication Summary Completed 01/15/2016 Patient Education: Obesity Completed 0 01/15/2016 Appointment: Divya Garcia WPtel: [address] [facility] [place] (15 min) Moderate 08/26/2015 Visit Plan: Diabetes Mellitus - controll ed - per recent FSBS reports. I have recommended for the patient to have follow up labs prior to the next office visit. The patient has been instructed to continue with current medications as previously directed, continue with regular FSBS monitoring to assure continued control of diabetes. Pt to call for any acute concerns, complaints, or if the blood glucose readings are starting to become less controlled. Obesity - pt has lost over 40 pounds in the past 4 months - no additional medications needed at this time, monitor weight - if she hits a plateau, we will then discuss weight loss medications such as contrave or belviq 05/29/2015 Appointment: Divya Garcia WPtel: [address] [facility] [place] (15 min) Moderate 05/29/2015 Patient Education: Patient Medication Summary Completed 05/29/2015 Visit Plan: Diabetes Mellitus - controll ed - per recent FSBS reports. I have recommended for the patient to have follow up labs prior to the next office visit. The patient has been instructed to continue with current medications as previously directed, continue with regular FSBS monitoring to assure continued control of diabetes. Pt to call for any acute concerns, complaints, or if the blood glucose readings are starting to become less controlled. 03/31/2015 Appointment: Divya Garcia [facility]el[facility] (15 min) Moderate 03/31/2015 Patient Education: Patient Medication Summary Completed 03/31/2015 Visit Plan: Well Adult - pt was counsele d about diet, exercise, and encouraged to follow a heart healthy diet and increase activity level. The patient was instructed to RTC yearly for well adult exams and PRN for acute illnesses. The pt was also instructed to have yearly labs for check of cholesterol, thyroid, chem panel, CBC, and renal functioning. Hair loss, weight gain, thyroid goiter - check thyroid las, monitor symptoms - pt to RTC in 1 month for weight check and symptom monitoring. Abnormal glucose level - check glucose levels. 02/26/2015 Appointment: Divya Garcia [facility]el[facility] [place] (S) New Patient 02/26/2015 Patient Education: Patient Medication Summary Completed 02/26/2015 Instructions Comment go to day surgery at [facility] for IV fluids at 0800. No PA needed for CT . Abdominal pain, nausea, post-op compli cation from Cholecystectomy with stones in biliary tree and pancreatitis - pt is status post stent placement - will send Cecilia for fluids, monitor labs, and depending on imaging - will need to change/initiate antibiotic therapy. Fluids on 12/23/[address] scan of abd/pelvis 12/24/2020. COLD COMPRESSES TO LEFT LEG CEPHALEXIN 500MG 1 TABLET 3 X DAY FOR 7 DAYS CALL OFFICE IF WORSENS CONTINUE DAILY ASPIRIN ULTRASOUND TO LEFT LEG TO RULE OUT DVT . Superficial Thrombophlebitis to Left U pper thigh up towards groin. . Firm and painful. Pt encouraged to continue aspirin use. RX sent to pharmacy for cephalexin due to significant erythema and pain. Encouraged use of warm compresses to site to help alleviate pain. Collaborated care with Dr. Garcia who agrees with US to rule out DVT. Pt notified and going today. . Well Adult - pt was counseled about di et, exercise, and encouraged to follow a heart healthy diet and increase activity level. The patient was instructed to RTC yearly for well adult exams and PRN for acute illnesses. The pt was also instructed to have yearly labs for check of cholesterol, thyroid, chem panel, CBC, and renal functioning. Obesity - discussed with pt - she needs to cut back on calories, monitor symptoms, check weight monthly. Vit d deficiency - check vit d level Insomnia and back pain - refilled tramadol, she is to try to take 1/2 pill at hs and during day if needed, and use melatonin to augment sleep. . Right breast pain - rx for a mammogra m sent with patient - ultrasound if needed as well. Diabetes Mellitus - controlled - per recent FSBS reports. I have recommended for the patient to have follow up labs prior to the next office visit. The patient has been instructed to continue with current medications as previously directed, continue with regular FSBS monitoring to assure continued control of diabetes. Pt to call for any acute concerns, complaints, or if the blood glucose readings are starting to become less controlled. Obesity - discussed with pt - she needs to cut back on calories, monitor symptoms, check weight monthly. Knee pain - rx for voltaren gel sent to the pharmacy. . Well Adult - pt was counseled about di et, exercise, and encouraged to follow a heart healthy diet and increase activity level. The patient was instructed to RTC yearly for well adult exams and PRN for acute illnesses. The pt was also instructed to have yearly labs for check of cholesterol, thyroid, chem panel, CBC, and renal functioning. Obesity - discussed with pt - she needs to cut back on calories, monitor symptoms, check weight monthly. Hair loss - check labs - TSH, Free T4 Flu swab today - Tamiflu - if flu positi ve Z-pack and cefdinir (start tomorrow) Prednisone (start tomorrow) Kenalog and rocephin shot today Phenergan with codeine cough syrup Let me know if you are not feeling any better. URI - Pt advised to increase fluids, vitamin C. Discussed natural and expected course of this diagnosis and need to alert me if symptoms do not follow expected course, or if any worse. RX sent to patient's pharmacy. Allergies - chronic - recommended pt to use allergy medication as prescribed. Pt has been counseled as to the appropriate use of the medication. Pt to call if allergy symptoms are not controlled with the medication. If using nasal spray, instructions as follows: Nasal spray- use twice daily, one spray per nostril twice daily, after 30 minutes, rinse out nose with saline spray.. Use opposite hand per nostril to spray in the nasal steroid allergy spray. minoxidil (rogaine) for hair growth . Diabetes Mellitus - controlled - per r ecent FSBS reports. I have recommended for the patient to have follow up labs prior to the next office visit. The patient has been instructed to continue with current medications as previously directed, continue with regular FSBS monitoring to assure continued control of diabetes. Pt to call for any acute concerns, complaints, or if the blood glucose readings are starting to become less controlled. Hypothyroidism - pt with chronic hypothyroidism, continue with current medication, will monitor pt to signs or symptoms of lack of adequate supplementation. Pt is to continue with current dose of medication unless directed otherwise. Check labs at regular intervals wither q 3 months or q 6 months based on previous levels of control. Hair loss - minoxidil (rogaine) for hair growth - check labs, TSH, iron level, ferritin, ESR dustin lira and dr. ellen parekh wild [employer] grain brain . Well Adult - pt was counseled about di et, exercise, and encouraged to follow a heart healthy diet and increase activity level. The patient was instructed to RTC yearly for well adult exams and PRN for acute illnesses. The pt was also instructed to have yearly labs for check of cholesterol, thyroid, chem panel, CBC, and renal functioning. Diabetes Mellitus - controlled - per recent FSBS reports. I have recommended for the patient to have follow up labs prior to the next office visit. The patient has been instructed to continue with current medications as previously directed, continue with regular FSBS monitoring to assure continued control of diabetes. Pt to call for any acute concerns, complaints, or if the blood glucose readings are starting to become less controlled. Edema - pt has been advised to elevate legs to prevent dependent edema, compression has been recommended to help to naturally decrease peripheral edema. Diuretic use has been discussed and pt has been instructed in appropriate use of such medication as necessary to further attempt to reduce peripheral edema. HCTZ rx sent to pharmacy Obesity - pt is not interested in weight loss surgery due to several friends having had bad experiences from the surgery. I have recommended some reading on diet changes for the patient. . Diabetes Mellitus - controlled - per r ecent FSBS reports. I have recommended for the patient to have follow up labs prior to the next office visit. The patient has been instructed to continue with current medications as previously directed, continue with regular FSBS monitoring to assure continued control of diabetes. Pt to call for any acute concerns, complaints, or if the blood glucose readings are starting to become less controlled. Obesity - pt has lost over 50 pounds in the past 9 month - no additional medications needed at this time, monitor weight - if she hits a plateau, we will then discuss weight loss medications such as contrave or belviq Goiter -check labs contrave belviq two weight loss medications - for future reference . Diabetes Mellitus - controlled - per r ecent FSBS reports. I have recommended for the patient to have follow up labs prior to the next office visit. The patient has been instructed to continue with current medications as previously directed, continue with regular FSBS monitoring to assure continued control of diabetes. Pt to call for any acute concerns, complaints, or if the blood glucose readings are starting to become less controlled. Obesity - pt has lost over 40 pounds in the past 4 months - no additional medications needed at this time, monitor weight - if she hits a plateau, we will then discuss weight loss medications such as contrave or belviq . Diabetes Mellitus - controlled - per r ecent FSBS reports. I have recommended for the patient to have follow up labs prior to the next office visit. The patient has been instructed to continue with current medications as previously directed, continue with regular FSBS monitoring to assure continued control of diabetes. Pt to call for any acute concerns, complaints, or if the blood glucose readings are starting to become less controlled. . Well Adult - pt was counseled about di et, exercise, and encouraged to follow a heart healthy diet and increase activity level. The patient was instructed to RTC yearly for well adult exams and PRN for acute illnesses. The pt was also instructed to have yearly labs for check of cholesterol, thyroid, chem panel, CBC, and renal functioning. Hair loss, weight gain, thyroid goiter - check thyroid las, monitor symptoms - pt to RTC in 1 month for weight check and symptom monitoring. Abnormal glucose level - check glucose levels. Medical Equipment No Medical Equipment data Health Concerns Section Health Concerns data not found Goals Section Goals data not found Interventions Section Interventions data not found Health Status Evaluations/Outcomes Section Health Status Evaluations/Outcomes data not found Advance Directives No Advance Directive data
--- OUTSIDE RECORDS SUMMARY | 2020-12-30 12:38 | XMS REPORT | CCD ---
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 smoker 02/26/[address]: 518929837 Never drinks alcohol 2014 Allergies, Adverse Reactions, [...] Start Date Stop Date Status Fill Instructions ondansetron 4 mg disintegrating tablet RxNorm: 477570 1 Tablet(s) Oral Q6 as needed 12/24/2020 01/22/2021 Active Cipro 500 mg tablet RxNorm: 735933 1 Tablet(s) Oral two times a day 12/24/2020 12/24/2020 Inactive ondansetron 4 mg disintegrating tablet RxNorm: 890800 1 Tablet(s) Oral Q6 as needed 12/24/2020 12/24/2020 Inactive Flagyl 500 mg tablet RxNorm: 221675 1 Tablet(s) Oral three time s a day 12/24/2020 12/30/2020 Active Flagyl 500 mg tablet RxNorm: 309573 1 Tablet(s) Oral three time s a day 12/24/2020 12/24/2020 Inactive lactulose 10 gram/15 mL (15 mL) oral solution RxNorm: 288014 15 Milliliter(s) Oral every day take dose daily until has BM then change to PRN 12/24/2020 12/24/2020 Inactive 1 bottle bupropion HCl 75 mg tablet RxNorm: 785103 1 Tablet(s) Oral two times a day 12/24/2020 12/24/2020 Inactive bupropion HCl 75 mg tablet RxNorm: 950605 1 Tablet(s) Oral two times a day 12/24/2020 01/22/2021 Active lactulose 10 gram/15 mL (15 mL) oral solution RxNorm: 655004 15 Milliliter(s) Oral every day take dose daily until has BM then change to PRN 12/24/2020 01/22/2021 Active 1 bottle Cipro 500 mg tablet RxNorm: 769680 1 Tablet(s) Oral two times a day 12/24/2020 12/30/2020 Active fluconazole 150 mg tablet RxNorm: 675254 Take 1 Tablet(s) Oral every other day 12/22/2020 12/27/2020 Active nystatin 100,000 unit/mL oral suspension RxNorm: 341216 Take 5 Milliliter(s) Oral four times a day 12/22/2020 12/31/2020 Active Diflucan 150 mg tablet RxNorm: 463482 Take 1 Tablet(s) Oral jeffy ry day 12/04/2020 12/04/2020 Inactive Diflucan 150 mg tablet RxNorm: 363195 Take 1 Tablet(s) Oral jeffy ry day 12/04/2020 12/10/2020 Inactive cephalexin 500 mg tablet RxNorm: 060042 1 Tablet(s) Oral three times a day 08/05/2020 08/12/2020 Inactive metformin 500 mg tablet RxNorm: 043747 TKAE 1/2 TABLET BY MOUTH TWICE DAILY 05/12/2020 02/05/2021 Active Vitamin D2 1,250 mcg (50,000 unit) capsule RxNorm: 1958849 1 Capsule(s) Oral once a week 04/15/2020 07/14/2020 Inactive tramadol 50 mg tablet RxNorm: 190254 1 Tablet(s) Oral t hree times a day as needed arthritis pain 03/24/2020 07/21/2020 Inactive metformin 500 mg tablet RxNorm: 375978 TKAE 1/2 TABLET BY MOUTH TWICE DAILY 02/11/2020 05/10/2020 Inactive metformin 500 mg tablet RxNorm: 103675 TABLET(S) TAKE 1 /2 TABLET BY MOUTH TWICE DAILY 07/12/2019 02/10/2020 Inactive metformin 500 mg tablet RxNorm: 158795 TABLET(S) TAKE 1 /2 TABLET BY MOUTH TWICE DAILY 06/19/2019 07/11/2019 Inactive Keflex 500 mg capsule RxNorm: 293471 1 Capsule(s) Oral three ti mes a day 05/03/2019 05/02/2019 Inactive cephalexin 500 mg tablet RxNorm: 760332 1 Tablet(s) Oral three times a day 05/03/2019 05/10/2019 Inactive interactions reviewe d, fill the medication as written please Bactrim DS 800 mg-160 mg tablet RxNorm: 330536 1 Tablet(s) Oral two times a day 03/23/2019 03/22/2019 Inactive Bactrim DS 800 mg-160 mg tablet RxNorm: 930268 1 Tablet(s) Oral two times a day 03/23/2019 04/01/2019 Inactive Vitamin D3 5,000 unit tablet RxNorm: 402291 1 Tablet(s) PO daily No Stop Date Active Voltaren 1 % topical gel RxNorm: 212229 2 Gram(s) TOP QID 12/26/2018 04/24/2019 Inactive metformin 500 mg tablet RxNorm: 632443 TABLET(S) TAKE 1 /2 TABLET BY MOUTH TWICE DAILY 10/30/2018 06/18/2019 Inactive metformin 500 mg tablet RxNorm: 838618 TABLET(S) TAKE 1 /2 TABLET BY MOUTH TWICE DAILY 05/18/2018 10/29/2018 Inactive metformin 500 mg tablet RxNorm: 302848 Tablet(s) TAKE 1 /2 TABLET BY MOUTH TWICE DAILY 10/13/2017 04/10/2018 Inactive metformin 500 mg tablet RxNorm: 724236 TAKE 1/2 TABLET BY MOUTH TWICE DAILY 09/02/2017 10/12/2017 Inactive Phenergan with Codeine Syrup RxNorm: 5-10 Milliliter(s) PO QID as needed 05/06/2017 10/29/2018 Inactive Kenalog 40 mg/mL suspension for injection RxNorm: 8501479 1 Mill iliter(s) Inj 05/06/2017 05/06/2017 Inactive Tamiflu 75 mg capsule RxNorm: 854529 1 Capsule(s) PO BID 05/06/2017 0 05/10/2017 Inactive prednisone 20 mg tablet RxNorm: 297787 2 Tablet(s) PO daily 018 05/10/2017 Inactive cefdinir 300 mg capsule RxNorm: 600019 1 Capsule(s) PO BID 05/06/19 18 05/15/2017 Inactive Zithromax Z-Xavier 250 mg tablet RxNorm: 430065 1 Tablet(s) PO UD 04/2505/17/2018 Inactive ceftriaxone 500 mg solution for injection RxNorm: 7754259 1 Mill iliter(s) Inj 05/06/2017 05/06/2017 Inactive metformin 500 mg tablet RxNorm: 829578 TAKE 1/2 TABLET BY MOUTH TWICE DAILY 11/29/2016 10/12/2017 Inactive Vitamin D2 50,000 unit capsule RxNorm: 707897 1 Capsule(s) PO QW 04/08/2017 Inactive hydrochlorothiazide 25 mg tablet RxNorm: 344395 1 Table t(s) PO daily as needed edema 10/06/2016 02/02/2017 Inactive potassium chloride ER 10 mEq tablet,extended release RxNorm: 588783 1 Tablet(s) PO daily as needed when taking hctz 10/06/2016 02/02/2017 Inactive metformin 500 mg tablet RxNorm: 937442 1/2 Tablet(s) PO BID 017 10/12/2017 Inactive prednisone 20 mg tablet RxNorm: 749882 2 Tablet(s) PO P RN at onset of exposure to insect bite 10/06/2016 12/25/2018 Inactive tramadol 50 mg tablet RxNorm: 871998 1 Tablet(s) PO TID as needed arthritis pain 10/06/2016 02/02/2017 Inactive metformin 500 mg tablet RxNorm: 548690 1/2 TABLET(S) PO BID 016 10/05/2016 Inactive Vitamin D2 50,000 unit capsule RxNorm: 578426 1 Capsule(s) PO QW 08/26/2015 Inactive Vitamin D3 5,000 unit tablet RxNorm: 202805 1 Tablet(s) PO daily 01/14/2016 Inactive metformin 500 mg tablet RxNorm: 128106 1/2 Tablet(s) PO BID 015 03/02/2015 Inactive Vitamin D2 50,000 unit capsule RxNorm: 575057 1 Capsule(s) PO QW 05/28/2015 Inactive metformin 500 mg tablet RxNorm: 903269 1/2 Tablet(s) PO BID 015 02/25/2016 Inactive Vitamin D2 50,000 unit capsule RxNorm: 782080 1 Capsule(s) PO QW 03/02/2015 Inactive Xiidra 5 % eye drops in a dropperette RxNorm: 1719915 1 ophthalm ic (eye) BID 12/26/2018 Active Vitamin D3 1,000 unit tablet RxNorm: 301482 1 Tablet(s) PO daily 12/25/2018 Inactive Medication Administered Medication Codes Instructions Start Date Status ceftriaxone 500 mg solution for injection RxNorm: 8027858 1Milli liter 05/06/2017 No longer Active Kenalog 40 mg/mL suspension for injection RxNorm: 4952178 1Milli liter 05/06/2017 No longer Active Immunizations Vaccine Codes Date Status Influenza CVX: 135 01/22/2015 Tetanus, Diptheria, Pertussis CVX: 04/25/2012 Tetanus/Diptheria CVX: 04/25/2012 Results Observation Observation Code Item Item Code Result Date S ervice Location Comp Metabolic Gmy900 NA 140 mEq/L 04/10/2020 Unkn own Comp Metabolic Vby941 K 4.4 mEq/L 04/10/2020 Unkn own Comp Metabolic Dgj093 CL 101 mEq/L 04/10/2020 Unkn own Comp Metabolic Fdw949 CO2 31.0 mEq/L 04/10/2020 Unk nown Comp Metabolic Wee615 ANION GAP 12 04/10/2020 Unkn own Comp Metabolic Kee028 GLUCOSE 105 mg/dL 04/10/2020 Unkn own Comp Metabolic Cyl993 Creat 0.9 mg/dL 04/10/2020 Unkn own Comp Metabolic Rfl339 eGFR 66 ml/min/1.73m2 04/10/20 20 Unknown Comp Metabolic Eud473 BUN 18 mg/dL 04/10/2020 Unkn own Comp Metabolic Wwf054 B/C Ratio 19.6 Ratio 04/10/2020 Unk nown Comp Metabolic Ssu893 CALCIUM 9.3 mg/dL 04/10/2020 Unkn own Comp Metabolic Stm687 ALK PHOS 64 U/L 04/10/2020 Unkn own Comp Metabolic Eqi760 AST(SGOT) 14 U/L 04/10/2020 Unkn own Comp Metabolic Vjb299 ALT(SGPT) 13 U/L 04/10/2020 Unkn own Comp Metabolic Zjs249 BILI T 0.5 mg/dL 04/10/2020 Unkn own Comp Metabolic Vod126 ALBUMIN 3.8 g/dL 04/10/2020 Unkn own Comp Metabolic Ojw796 TPRO 6.8 g/dL 04/10/2020 Unkn own Comp Metabolic Rlc979 GLOB 3.0 g/dL 04/10/2020 Unkn own Comp Metabolic Nbf618 A/G Ratio 1.2 Ratio 04/10/2020 Unkn own Comp Metabolic Qzd214 Osmo 282 mOsmo 04/10/2020 Unkn own Tsh Ord6 TSH (3rd IS) 1.67 uIU/mL 04/10/2020 Unkn own %Hba1C Vhg331 % HbA1c 07037-9 6.0 % 04/10/2020 Unknown %Hba1C Eir168 Gluc Ave 126 mg/dL 04/10/2020 Unknown Cbc With Differential Ord2 WBC 9.37 K/ul 04/10/20 20 Unknown Cbc With Differential Ord2 RBC 4.58 M/ul 12/17/20 20 Unknown Cbc With Differential Ord2 HGB 14.3 g/dl 04/10/20 Unknown Cbc With Differential Ord2 HCT 44.0 % 04/10/20 Unknown Cbc With Differential Ord2 Neut% 67.0 % 04/10/20 Unknown Cbc With Differential Ord2 MCV 96.1 fl 04/10/20 Unknown Cbc With Differential Ord2 Lymph% 23.7 % 04/10/20 Unknown Cbc With Differential Ord2 MCH 31.2 pg 04/10/20 Unknown Cbc With Differential Ord2 [place]% 7.3 % 04/10/20 Unknown Cbc With Differential Ord2 MCHC 32.5 pg 04/10/20 Unknown Cbc With Differential Ord2 Eos% 1.6 % 04/10/20 Unknown Cbc With Differential Ord2 PLT 316 K/ul 04/10/20 Unknown Cbc With Differential Ord2 Baso% 0.4 % 04/10/20 Unknown Cbc With Differential Ord2 RDW 14.1 % 04/10/20 Unknown Cbc With Differential Ord2 Neut ABS# 6.28 K/ul 04/10/20 Unknown Cbc With Differential Ord2 Lymph ABS# 2.22 K/ul 020 Unknown Cbc With Differential Ord2 [place] ABS# 0.7 K/ul 04/10/20 Unknown Cbc With [...] Ratio 04/10/2020 Unknown Vitamin D 25 Oh Ftb3991 VITAMIN D, 25 HYDROXY 17.87 ng/mL 04/10/2020 Unknown %Hba1C Zuj395 % HbA1c 78058-0 6.0 % 12/22/2018 Unknown %Hba1C Xes234 Gluc Ave 126 mg/dL 12/22/2018 Unknown Microalbumin Akk639 MicroAlb <0.7 mg/dL 05/26/2018 Unkno wn Comp Metabolic Myv345 NA 139 mEq/L 05/26/2018 Unkn own Comp Metabolic Mer877 K 4.7 mEq/L 05/26/2018 Unkn own Comp Metabolic Jxu290 CL 101 mEq/L 05/26/2018 Unkn own Comp Metabolic Jls451 CO2 32.0 mEq/L 05/26/2018 Unk nown Comp Metabolic Sed403 ANION GAP 11 05/26/2018 Unkn own Comp Metabolic Ako808 GLUCOSE 98 mg/dL 05/26/2018 Unkn own Comp Metabolic Xup172 Creat 0.9 mg/dL 05/26/2018 Unkn own Comp Metabolic Bnt610 eGFR 69 ml/min/1.73m2 05/26/19 19 Unknown Comp Metabolic Aoo642 BUN 17 mg/dL 05/26/2018 Unkn own Comp Metabolic Jss930 B/C Ratio 19.1 Ratio 05/26/2018 Unk nown Comp Metabolic Qjx938 CALCIUM 9.3 mg/dL 05/26/2018 Unkn own Comp Metabolic Hze334 ALK PHOS 61 U/L 05/26/2018 Unkn own Comp Metabolic Bmi293 AST(SGOT) 14 U/L 05/26/2018 Unkn own Comp Metabolic Vdm042 ALT(SGPT) 14 U/L 05/26/2018 Unkn own Comp Metabolic Res151 BILI T 0.7 mg/dL 05/26/2018 Unkn own Comp Metabolic Hbm332 ALBUMIN 3.8 g/dL 05/26/2018 Unkn own Comp Metabolic Omr567 TPRO 6.9 g/dL 05/26/2018 Unkn own Comp Metabolic Vuc229 GLOB 3.1 g/dL 05/26/2018 Unkn own Comp Metabolic Lvh442 A/G Ratio 1.2 Ratio 05/26/2018 Unkn own Comp Metabolic Jdu679 Osmo 279 mOsmo 05/26/2018 Unkn own Lipid [...] 05/26/19 19 Unknown Cbc With Differential Ord2 [place]% 8.5 % 05/26/19 19 Unknown Cbc With [...] K/ul 019 Unknown Cbc With Differential Ord2 [place] ABS# 0.7 K/ul 05/26/19 19 Unknown Cbc With Differential Ord2 Eos ABS# 0.2 K/ul 05/26/19 19 Unknown Cbc With Differential Ord2 Baso ABS# 0.1 K/ul 05/26/19 19 Unknown Tsh Ord6 TSH (3rd IS) 1.58 uIU/mL 05/26/2018 Unkn own %Hba1C Mcu379 % HbA1c 37677-7 5.8 % 05/26/2018 Unknown %Hba1C Ecx612 Gluc Ave 120 mg/dL 05/26/2018 Unknown C A/B FLU 6420565 Influenza A Scr Negative 05/06/2017 Unk nown C A/B FLU 8265817 Influenza B Scr Negative 05/06/2017 Unk nown C A/B FLU 9262167 Influenza Intrp B AG:PRID:PT:NOSE:NOM:IF See Footnote 05/06/2017 Unknown Free T4 Xig881 FREE T4 1.03 ng/dL 03/02/2017 Unknown %Hba1C Hub279 % HbA1c 64641-3 5.4 % 03/02/2017 Unknown %Hba1C Lmu175 Gluc Ave 108 mg/dL 03/02/2017 Unknown Comp Metabolic Gru361 NA 140 mEq/L 03/02/2017 Unkn own Comp Metabolic Nsj381 K 4.4 mEq/L 03/02/2017 Unkn own Comp Metabolic Rlc024 CL 101 mEq/L 03/02/2017 Unkn own Comp Metabolic Mry889 CO2 29.0 mEq/L 03/02/2017 Unk nown Comp Metabolic Zql611 ANION GAP 14 03/02/2017 Unkn own Comp Metabolic Lrb043 GLUCOSE 94 mg/dL 03/02/2017 Unkn own Comp Metabolic Qcz810 Creat 1.0 mg/dL 03/02/2017 Unkn own Comp Metabolic Zka975 eGFR 63 ml/min/1.73m2 03/02/20 17 Unknown Comp Metabolic Xpj394 BUN 20 mg/dL 03/02/2017 Unkn own Comp Metabolic Irq948 B/C Ratio 20.6 Ratio 03/02/2017 Unk nown Comp Metabolic Vxx369 CALCIUM 9.2 mg/dL 03/02/2017 Unkn own Comp Metabolic Zbr386 ALK PHOS 67 U/L 03/02/2017 Unkn own Comp Metabolic Msg122 AST(SGOT) 17 U/L 03/02/2017 Unkn own Comp Metabolic Jty172 ALT(SGPT) 17 U/L 03/02/2017 Unkn own Comp Metabolic Rxw164 BILI T 0.5 mg/dL 03/02/2017 Unkn own Comp Metabolic Ruf781 ALBUMIN 3.9 g/dL 03/02/2017 Unkn own Comp Metabolic Wgo625 TPRO 6.8 g/dL 03/02/2017 Unkn own Comp Metabolic Lhp236 GLOB 2.9 g/dL 03/02/2017 Unkn own Comp Metabolic Tni880 A/G Ratio 1.4 Ratio 03/02/2017 Unkn own Comp Metabolic Ixk497 Osmo 282 mOsmo 03/02/2017 Unkn own Cbc [...] 03/02/20 17 Unknown Cbc With Differential Ord2 [place]% 8.3 % 03/02/20 17 Unknown Cbc With [...] K/ul 017 Unknown Cbc With Differential Ord2 [place] ABS# 0.8 K/ul 03/02/20 17 Unknown Cbc [...] Fe-%Sat 30.4 % 03/02/2017 Unknown Comp Metabolic Jes159 NA 140 mEq/L 10/11/2016 Unkn own Comp Metabolic Ibe473 K 4.9 mEq/L 10/11/2016 Unkn own Comp Metabolic Zqt514 CL 100 mEq/L 10/11/2016 Unkn own Comp Metabolic Mzf243 CO2 32.0 mEq/L 10/11/2016 Unk nown Comp Metabolic Ahy566 ANION GAP 13 10/11/2016 Unkn own Comp Metabolic Ibt986 GLUCOSE 95 mg/dL 10/11/2016 Unkn own Comp Metabolic Stm049 Creat 1.0 mg/dL 10/11/2016 Unkn own Comp Metabolic Tnr859 eGFR 64 ml/min/1.73m2 10/12/19 17 Unknown Comp Metabolic Lhe791 BUN 17 mg/dL 10/11/2016 Unkn own Comp Metabolic Col838 B/C Ratio 17.9 Ratio 10/11/2016 Unk nown Comp Metabolic Fzc386 CALCIUM 9.5 mg/dL 10/11/2016 Unkn own Comp Metabolic Jmi269 ALK PHOS 65 U/L 10/11/2016 Unkn own Comp Metabolic Lto967 AST(SGOT) 16 U/L 10/11/2016 Unkn own Comp Metabolic Uod834 ALT(SGPT) 16 U/L 10/11/2016 Unkn own Comp Metabolic Zoq915 BILI T 0.6 mg/dL 10/11/2016 Unkn own Comp Metabolic Wro393 ALBUMIN 3.8 g/dL 10/11/2016 Unkn own Comp Metabolic Fay243 TPRO 6.7 g/dL 10/11/2016 Unkn own Comp Metabolic Lco698 GLOB 2.9 g/dL 10/11/2016 Unkn own Comp Metabolic Aju531 A/G Ratio 1.3 Ratio 10/11/2016 Unkn own Comp Metabolic Pqt523 Osmo 281 mOsmo 10/11/2016 Unkn own Cbc [...] 10/12/19 17 Unknown Cbc With Differential Ord2 [place]% 8.2 % 10/12/19 17 Unknown Cbc With [...] K/ul 017 Unknown Cbc With Differential Ord2 [place] ABS# 0.7 K/ul 10/12/19 17 Unknown Cbc With Differential Ord2 Eos ABS# 0.2 K/ul 10/12/19 17 Unknown Cbc With Differential Ord2 Baso ABS# 0.0 K/ul 10/12/19 17 Unknown Vitamin D 25 Oh Ejm9691 VITAMIN D, 25 HYDROXY 14.10 ng/mL 10/11/2016 Unknown Lipid Ord30 CHOL 169 mg/dL 10/11/2016 Unknown Lipid Ord30 HDL 44.0 mg/dl 10/11/2016 Unknown Lipid Ord30 TRIG 139 mg/dL 10/11/2016 Unknown Lipid Ord30 LDL 97 mg/dL 10/11/2016 Unknown Lipid Ord30 C/HDL 3.8 Ratio 10/11/2016 Unknown %Hba1C Qxq961 % HbA1c 90440-7 5.5 % 10/11/2016 Unknown %Hba1C Gza002 Gluc Ave 111 mg/dL 10/11/2016 Unknown Tsh [...] 01/19/20 16 Unknown Cbc With Differential Ord2 [place]% 7.7 % 01/19/20 16 Unknown Cbc With [...] K/ul 016 Unknown Cbc With Differential Ord2 [place] ABS# 0.7 K/ul 01/19/20 16 Unknown Cbc [...] Ratio 01/19/2016 Unknown Vitamin D 25 Oh Emt8521 VITAMIN D, 25 HYDROXY 33.57 ng/mL 01/19/2016 Unknown %Hba1C Dky493 % HbA1c 85644-0 5.6 % 01/19/2016 Unknown %Hba1C Hge715 Gluc Ave 114 mg/dL 01/19/2016 Unknown Comp Metabolic Wml209 NA 136 mEq/L 01/19/2016 Unkn own Comp Metabolic Rlp147 K 4.1 mEq/L 01/19/2016 Unkn own Comp Metabolic Vva042 CL 100 mEq/L 01/19/2016 Unkn own Comp Metabolic Rob219 CO2 32.0 mEq/L 01/19/2016 Unk nown Comp Metabolic Msw979 ANION GAP 8 01/19/2016 Unkn own Comp Metabolic Iqo453 GLUCOSE 96 mg/dL 01/19/2016 Unkn own Comp Metabolic Itz894 Creat 0.9 mg/dL 01/19/2016 Unkn own Comp Metabolic Ezk162 eGFR 68 ml/min/1.73m2 01/19/20 16 Unknown Comp Metabolic Tww787 BUN 19 mg/dL 01/19/2016 Unkn own Comp Metabolic Muq023 B/C Ratio 20.9 Ratio 01/19/2016 Unk nown Comp Metabolic Hyf562 CALCIUM 9.4 mg/dL 01/19/2016 Unkn own Comp Metabolic Ukh824 ALK PHOS 59 U/L 01/19/2016 Unkn own Comp Metabolic Qrq488 AST(SGOT) 15 U/L 01/19/2016 Unkn own Comp Metabolic Jgb036 ALT(SGPT) 15 U/L 01/19/2016 Unkn own Comp Metabolic Jsw926 BILI T 0.6 mg/dL 01/19/2016 Unkn own Comp Metabolic Qmn876 ALBUMIN 3.9 g/dL 01/19/2016 Unkn own Comp Metabolic Col545 TPRO 6.8 g/dL 01/19/2016 Unkn own Comp Metabolic Ztt273 GLOB 2.9 g/dL 01/19/2016 Unkn own Comp Metabolic Mwi977 A/G Ratio 1.4 Ratio 01/19/2016 Unkn own Comp Metabolic Ipc439 Osmo 274 mOsmo 01/19/2016 Unkn own Tsh Ord6 hTSH II 1.47 uIU/mL 01/19/2016 Unknown %Hba1C Baw831 % HbA1c 05193-3 5.9 % 05/30/2015 Unknown %Hba1C Lsf073 Gluc Ave 123 mg/dL 05/30/2015 Unknown Tsh Ord6 hTSH II 1.51 uIU/mL 02/27/2015 Unknown Comp Metabolic Hyo828 NA 134 mEq/L 02/27/2015 Unkn own Comp Metabolic Lor454 K 4.3 mEq/L 02/27/2015 Unkn own Comp Metabolic Yeb020 CL 102 mEq/L 02/27/2015 Unkn own Comp Metabolic Jgi667 CO2 24.0 mEq/L 02/27/2015 Unk nown Comp Metabolic Pml594 ANION GAP 12 02/27/2015 Unkn own Comp Metabolic Zeo363 GLUCOSE 131 mg/dL 02/27/2015 Unkn own Comp Metabolic Jzd869 Creat 1.1 mg/dL 02/27/2015 Unkn own Comp Metabolic Vik861 eGFR 57 ml/min/1.73m2 02/28/20 15 Unknown Comp Metabolic Qdx290 BUN 17 mg/dL 02/27/2015 Unkn own Comp Metabolic Fug869 B/C Ratio 16.2 Ratio 02/27/2015 Unk nown Comp Metabolic Lcu300 CALCIUM 9.4 mg/dL 02/27/2015 Unkn own Comp Metabolic Gyz550 ALK PHOS 73 U/L 02/27/2015 Unkn own Comp Metabolic Ywt957 AST(SGOT) 18 U/L 02/27/2015 Unkn own Comp Metabolic Rtd598 ALT(SGPT) 17 U/L 02/27/2015 Unkn own Comp Metabolic Fql157 BILI T 0.8 mg/dL 02/27/2015 Unkn own Comp Metabolic Zla213 ALBUMIN 3.9 g/dL 02/27/2015 Unkn own Comp Metabolic Yju090 TPRO 7.2 g/dL 02/27/2015 Unkn own Comp Metabolic Dao961 GLOB 3.3 g/dL 02/27/2015 Unkn own Comp Metabolic Jnr684 A/G Ratio 1.2 Ratio 02/27/2015 Unkn own Comp Metabolic Jfw359 Osmo 272 mOsmo 02/27/2015 Unkn own Lipid Ord30 CHOL 197 mg/dL 02/27/2015 Unknown Lipid Ord30 HDL 41.0 mg/dl 02/27/2015 Unknown Lipid Ord30 TRIG 137 mg/dL 02/27/2015 Unknown Lipid Ord30 LDL 129 mg/dL 02/27/2015 Unknown Lipid Ord30 C/HDL 4.8 Ratio 02/27/2015 Unknown Free T4 Lkj706 FREE T4 1.10 ng/dL 02/27/2015 Unknown Vitamin D 25 Oh Msk2973 VITAMIN D, 25 HYDROXY 10.95 ng/mL 02/27/2015 [...] RDW 14.9 % 02/27/20 15 Unknown %Hba1C Yik042 % HbA1c 21778-2 7.3 % 02/26/2015 Unknown %Hba1C Jop587 Gluc Ave 163 mg/dL 02/26/2015 Unknown Procedures Procedure Codes Date ROCEPHIN, PER 250 MG CPT-4: J0696 05/06/2017 TRIAMCINOLONE ACET INJ NOS 10 mg CPT-4: J3301 018 Vital Signs Date Vital 12/22/2020 Blood Pressure 1: 118/72 Code: 8480-6 BMI: 44.2 Code: 00476-2 Heart Rate 1: 110 bpm Height: 5'8" Code: 8302-2 Respiratory Rate: 20 bpm SpO2: 98% Temperature: 36.0 (C) / 96.8 (F) Weight: 291 lbs Code: 66332-1 08/05/2020 Blood Pressure 1: 142/78 Code: 8480-6 BMI: 50.9 Code: 65082-4 Heart Rate 1: 87 bpm Height: 5'8" Code: 8302-2 SpO2: 98% Temperature: 3 6.2 (C) / 97.1 (F) Weight: 335 lbs Code: 44274-6 03/24/2020 Blood Pressure 1: 132/74 Code: 8480-6 BMI: 51.7 Code: 68975-8 Heart Rate 1: 90 bpm Height: 5'8" Code: 8302-2 Respiratory Rate: 15 bpm SpO2: 95% Temperature: 36.4 (C) / 97.5 (F) Weight: 340 lbs Code: 96226-8 12/26/2018 BMI: 52.6 Code: 30559-6 Heart Rate 1: 80 bpm Hei ght: 5'8" Code: 8302-2 Respiratory Rate: 16 bpm SpO2: 98% Weight: 346 lbs Code: 93633-0 05/25/2018 Blood Pressure 1: 122/68 Code: 8480-6 BMI: 52.6 Code: 21825-2 Heart Rate 1: 69 bpm Height: 5'8" Code: 8302-2 SpO2: 96% Weight: 346 lb s Code: 94496-0 05/06/2017 Blood Pressure 1: 134/76 Code: 8480-6 Heart Rate 1: 84 bpm Height: 5'8" Code: 8302-2 SpO2: 96% Temperature: 36.6 (C) / 97.8 (F) Weight: Code: 68098-4 03/02/2017 Blood Pressure 1: 132/72 Code: 8480-6 BMI: 51.2 Code: 08332-7 Heart Rate 1: 67 bpm Height: 5'8" Code: 8302-2 SpO2: 98% Weight: 337 lb s Code: 86262-9 10/06/2016 Blood Pressure 1: 128/76 Code: 8480-6 BMI: 50.9 Code: 67591-3 Heart Rate 1: 70 bpm Height: 5'8" Code: 8302-2 SpO2: 98% Weight: 335 lb s Code: 02036-8 01/15/2016 Blood Pressure 1: 130/72 Code: 8480-6 BMI: 49.3 Code: 06209-4 Heart Rate 1: 68 bpm Height: 5'8" Code: 8302-2 SpO2: 98% Weight: 324 lb s Code: 61823-3 05/29/2015 Blood Pressure 1: 136/80 Code: 8480-6 BMI: 52.2 Code: 81647-2 Heart Rate 1: 69 bpm Height: 5'8" Code: 8302-2 SpO2: 97% Weight: 343 lb s Code: 83033-7 03/31/2015 Blood Pressure 1: 136/78 Code: 8480-6 BMI: 53.4 Code: 57508-9 Heart Rate 1: 69 bpm Height: 5'8" Code: 8302-2 SpO2: 96% Weight: 351 lb s Code: 96717-6 02/26/2015 Blood Pressure 1: 128/80 Code: 8480-6 BMI: 56.3 Code: 58673-8 Heart Rate 1: 79 bpm Height: 5'8" Code: 8302-2 SpO2: 96% Weight: 370 lb s Code: 94490-8 Functional Status No Functional Status data Reason For Visit Reason For Visit Effective Dates Notes Hospital Follow Up 12/22/2020 rash 08/05/2020 diabetes mellitus 03/24/2020 diabetes mellitus 12/26/2018 diabetes mellitus 05/25/2018 fever 05/06/2017 diabetes mellitus 03/02/2017 diabetes mellitus 10/06/2016 diabetes mellitus 01/15/2016 fatigue 05/29/2015 fatigue 03/31/2015 fatigue 02/26/2015 Encounters Encounter Performer Location Codes Date ([id number]) [id number] EST. PATIENT, LEVEL V Diagnosis: Abdominal pain[ICD10: R10.9] Diagnosis: Elevated liver enzymes[ICD10: R74.8] Diagnosis: Biliary stricture[ICD10: K83.1] Diagnosis: Dehydration[ICD10: E86.0] Diagnosis: Other postoperative complication involving digestive system[ICD10: K91.89] [facility] CPT-4: 04346 1 [id number]) [id number] EST. PATIENT, LEVEL III Diagnosis: Superficial phlebitis and thrombophlebitis of left leg[ICD10: I80.02] [facility] CPT-4: 72330 08/06/19 ([id number]) PREV VISIT EST AGE 40-64 Diagnosis: Encounter for general adult medical examination with abnormal findings[ICD10: Z00.01] Divya Garcia MD, [facility] CPT-4: 66596 03/24/2020 ([id number]) 96763 EST. PATIENT, LEVEL IV Diagnosis: Type 2 diabetes mellitus without complications[ICD10: E11.9] Diagnosis: Mastodynia[ICD10: N64.4] Diagnosis: Pain in left knee[ICD10: M25.562] Diagnosis: Bilateral primary osteoarthritis of knee[ICD10: M17.0] Divya Garcia MD, [facility] CPT-4: 09021 12/26/2018 ([id number]) PREV VISIT EST AGE 40-64 Diagnosis: Encounter for general adult medical examination with abnormal findings[ICD10: Z00.01] Divya Garcia MD, [facility] CPT-4: 25000 05/25/2018 [id number] EST. PATIENT, LEVEL III Diagnosis: Other malaise[ICD10: R53.81] Diagnosis: Fever, unspecified[ICD10: R50.9] Diagnosis: Acute laryngopharyngitis[ICD10: J06.0] Norma Terrell MD, [facility] CPT-4: 78034 05/06/2017 ([id number]) 01292 EST. 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 PATIENT, LEVEL IV Diagnosis: Type 2 diabetes mellitus without complications[ICD10: E11.9] Diagnosis: Morbid (severe) obesity due to excess calories[ICD10: E66.01] Diagnosis: Vitamin D deficiency, unspecified[ICD10: E55.9] Diagnosis: Nontoxic multinodular goiter[ICD10: E04.2] [facility] CPT-4: 96824 01/15/2016 ([id number]) 17209 EST. PATIENT, LEVEL III Diagnosis: Type 2 diabetes mellitus without complications[ICD10: E11.9] NAKUL Neely MD CPT-4: 48834 05/29/2015 ([id number]) 66528 EST. PATIENT, LEVEL III Diagnosis: Type 2 diabetes mellitus without complications[ICD10: E11.9] Diagnosis: Vitamin D deficiency, unspecified[ICD10: E55.9] [facility] CPT-4: 83492 03/31/2015 ([id number]) PREV VISIT NEW AGE 40-64 Diagnosis: Encounter for general adult medical examination with abnormal findings[ICD10: Z00.01] [facility] CPT-4: 23490 02/26/2015 Plan of Care Planned Activity Notes Codes Status Date Visit Plan: Abdominal pain, nausea, post -op complication from Cholecystectomy with stones in biliary tree and pancreatitis - pt is status post stent placement - will send Cecilia for fluids, monitor labs, and depending on imaging - will need to change/initiate antibiotic therapy. Fluids on 12/23/[address] scan of abd/pelvis 12/24/2020. 12/22/2020 Appointment: Divya Garcia WPtel: [address] [place], [place] [id number] [place] (15 min) Moderate 12/22/2020 Patient Education: Patient Medication Summary Completed 12/22/2020 Appointment: Divya Garcia WPtel: [address] [place], [place] [id number] [place] (15 min) Moderate 11/06/2020 Appointment: [facility] [place] ([facility] min) Moderate 10/15/2020 Appointment: Divya Garcia WPtel: [address] [place], [place] [id number] [place] (15 min) Moderate 09/15/2020 Visit Plan: [...] going today. 08/05/2020 Appointment: Deisy Lowe WPtel: [phone] [phone] [place] (30 min) Complex 08/05/2020 Patient Education: [...] augment sleep. 03/24/2020 Appointment: Div[facility] Garcia [facility]el[facility] [phone] [facility] [place] (15 min) Moderate 03/24/2020 Patient Education: Patient Medication Summary Completed 03/24/2020 Patient Education: Diabetes Completed 03/24/2020 App[facility]ment: [phone] [facility] [place] (15 min) Moderate 03/06/2020 Appointment: Div[facility]el[facility] [phone] [facility] [place] (15 min) Moderate 02/06/2019 Visit Plan: [...] the pharmacy. 12/26/2018 Appointment: Divya Garcia WPtel[facility] [place] (15 min) Moderate 12/26/2018 Patient Education: Patient Medication Summary Completed 12/26/2018 Patient Education: Diabetes Completed 12/26/2018 Care Plan: Unilateral DIAGNOSTICMAMMOGRAPHYDIGITAL LOINC : 18955-0 Pending 12/26/2018 Patient Education: Patient Medication Summary Completed 12/14/2018 Appointment: Divya Garcia WPtel: [address] [place], [place] [id number] [place] (15 min) Moderate 12/13/2018 Visit Plan: [...] Free T4 05/25/2018 Appointment: Div[facility] Garcia [facility]el[facility] [place] (15 min) Moderate 05/25/2018 Patient Education: Patient Medication Summary Completed 05/25/2018 Patient Education: Obesity Completed 0 05/25/2018 Appointment: Div[facility] Garcia [facility]Ptel[facility] [place] (15 min) Moderate 07/11/2017 Appointment: Divya Garcia [facility]Ptel[facility] [place] (15 min) Moderate 06/28/2017 Visit Plan: URI [...] allergy spray. 05/06/2017 Appointment: Norma Isbell WPtel: [phone] [facility] (15 min) Moderate 05/06/2017 Patient Education: Patient [...] ferritin, ESR 03/02/2017 Appointment: Div[facility] Garcia [facility]el[facility] [phone] [facility] (15 min) Moderate 03/02/2017 Patient Education: Patient Medication Summary Completed 03/02/2017 Patient Education: Obesity Completed 05/02/2016 Care Plan: Iron Pending 03/02/2017 Appointment: Divya Garcia WPtel: [phone] [facility] (15 min) Moderate 01/31/2017 Visit Plan: Well [...] the patient. 10/06/2016 Appointment: Divya Garcia WPtel[facility] (15 min) Moderate 10/06/2016 Patient Education: Patient Medication Summary Completed 10/06/2016 Patient Education: Obesity Completed 0 10/06/2016 Appointment: Divya Garcia [facility]Ptel[facility] (15 min) Moderate 09/15/2016 Appointment: Divya Garcia WPtel: [facility] [place] (15 min) Moderate 08/16/2016 Appointment: Divya Garcia WPtel: [facility] [place] (15 min) Moderate 07/15/2016 Patient Education: Patient Medication Summary Completed 01/27/2016 Care Plan: SCREENINGMAMMOGRAPHYDIGITAL L OINC : 59439-4 Pending 01/27/2016 Visit Plan: Diabetes Mellitus - [...] -check labs 01/15/2016 Appointment: Divya Garcia WPtel: [phone] [facility] [place] (15 min) Moderate 01/15/2016 Patient Education: Patient Medication Summary Completed 01/15/2016 Patient Education: Obesity Completed 0 01/15/2016 Appointment: Divya Garcia WPtel: [phone] [facility] [place] (15 min) Moderate 08/26/2015 [...] belviq 05/29/2015 Appointment: Div[facility]el[phone] [facility] [place] (15 min) Moderate 05/29/2015 Patient Education: [...] less controlled. 03/31/2015 Appointment: Div[facility] [phone] [facility] [place] (15 min) Moderate 03/31/2015 Patient Education: Patient [...] glucose levels. 02/26/2015 Appointment: Div[facility] Garcia [facility]el[phone] [place] ([place]) New Patient 02/26/2015 Patient Education: Patient Medication Summary Completed 02/26/2015 Instructions Comment go to day surgery at [facility] for IV fluids at 0800. No PA [...] dustin lira and dr. ellen parekh wild diet grain brain . Well Adult - pt [...]
--- OUTSIDE RECORDS SUMMARY | 2020-12-30 12:39 | XMS REPORT | CCD ---
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 Never smoker 02/26/[address]: 385602117 Never drinks alcohol 2014 Allergies, Adverse Reactions, Alerts Substance Reaction Codes Entered Date Inactivated Date Status * OTHER REACTION - SEE ANSWER BOX valtrex- causes rash Unknown 02/26/2015 No Inactive Date Active Problems Condition Codes Effective Dates Condition Status Abdominal pain ICD-10: R10.9 ICD-9: 789.00 12/22/2020 Active Biliary stricture ICD-10: K83.1 ICD-9: 576.2 12/22/2020 Active Elevated liver enzymes ICD-10: R74.8 ICD-9: 790.5 12/22/2020 Active Superficial thrombophlebitis ICD-10: I80.9 ICD-9: [...] Start Date Stop Date Status Fill Instructions Cipro 500 mg tablet RxNorm: 324411 1 Tablet(s) Oral two times a day 12/24/2020 12/24/2020 Inactive Cipro 500 mg tablet RxNorm: 094699 1 Tablet(s) Oral two times a day 12/24/2020 12/30/2020 Active fluconazole 150 mg tablet RxNorm: 225610 Take 1 Tablet(s) Oral every other day 12/22/2020 12/27/2020 Active nystatin 100,000 unit/mL oral suspension RxNorm: 144666 Take 5 Milliliter(s) Oral four times a day 12/22/2020 12/31/2020 Active Diflucan 150 mg tablet RxNorm: 369138 Take 1 Tablet(s) Oral jeffy ry day 12/04/2020 12/04/2020 Inactive Diflucan 150 mg tablet RxNorm: 130621 Take 1 Tablet(s) Oral jeffy ry day 12/04/2020 12/10/2020 Inactive cephalexin 500 mg tablet RxNorm: 875877 1 Tablet(s) Oral three times a day 08/05/2020 08/12/2020 Inactive metformin 500 mg tablet RxNorm: 800049 TKAE 1/2 TABLET BY MOUTH TWICE DAILY 05/12/2020 02/05/2021 Active Vitamin D2 1,250 mcg (50,000 unit) capsule RxNorm: 5092116 1 Capsule(s) Oral once a week 04/15/2020 07/14/2020 Inactive tramadol 50 mg tablet RxNorm: 799134 1 Tablet(s) Oral t hree times a day as needed arthritis pain 03/24/2020 07/21/2020 Inactive metformin 500 mg tablet RxNorm: 199667 TKAE 1/2 TABLET BY MOUTH TWICE DAILY 02/11/2020 05/10/2020 Inactive metformin 500 mg tablet RxNorm: 296654 TABLET(S) TAKE 1 /2 TABLET BY MOUTH TWICE DAILY 07/12/2019 02/10/2020 Inactive metformin 500 mg tablet RxNorm: 389739 TABLET(S) TAKE 1 /2 TABLET BY MOUTH TWICE DAILY 06/19/2019 07/11/2019 Inactive Keflex 500 mg capsule RxNorm: 037475 1 Capsule(s) Oral three ti mes a day 05/03/2019 05/02/2019 Inactive cephalexin 500 mg tablet RxNorm: 267394 1 Tablet(s) Oral three times a day 05/03/2019 05/10/2019 Inactive interactions reviewe d, fill the medication as written please Bactrim DS 800 mg-160 mg tablet RxNorm: 662714 1 Tablet(s) Oral two times a day 03/23/2019 03/22/2019 Inactive Bactrim DS 800 mg-160 mg tablet RxNorm: 267507 1 Tablet(s) Oral two times a day 03/23/2019 04/01/2019 Inactive Vitamin D3 5,000 unit tablet RxNorm: 170859 1 Tablet(s) PO daily No Stop Date Active Voltaren 1 % topical gel RxNorm: 805369 2 Gram(s) TOP QID 12/26/2018 04/24/2019 Inactive metformin 500 mg tablet RxNorm: 245962 TABLET(S) TAKE 1 /2 TABLET BY MOUTH TWICE DAILY 10/30/2018 06/18/2019 Inactive metformin 500 mg tablet RxNorm: 962041 TABLET(S) TAKE 1 /2 TABLET BY MOUTH TWICE DAILY 05/18/2018 10/29/2018 Inactive metformin 500 mg tablet RxNorm: 287451 Tablet(s) TAKE 1 /2 TABLET BY MOUTH TWICE DAILY 10/13/2017 04/10/2018 Inactive metformin 500 mg tablet RxNorm: 498472 TAKE 1/2 TABLET BY MOUTH TWICE DAILY 09/02/2017 10/12/2017 Inactive Phenergan with Codeine Syrup RxNorm: 5-10 Milliliter(s) PO QID as needed 05/06/2017 10/29/2018 Inactive Kenalog 40 mg/mL suspension for injection RxNorm: 5203008 1 Mill iliter(s) Inj 05/06/2017 05/06/2017 Inactive Tamiflu 75 mg capsule RxNorm: 926043 1 Capsule(s) PO BID 05/06/2017 0 05/10/2017 Inactive prednisone 20 mg tablet RxNorm: 911489 2 Tablet(s) PO daily 018 05/10/2017 Inactive cefdinir 300 mg capsule RxNorm: 805099 1 Capsule(s) PO BID 05/06/19 18 05/15/2017 Inactive Zithromax Z-Xavier 250 mg tablet RxNorm: 847703 1 Tablet(s) PO UD 04/2505/17/2018 Inactive ceftriaxone 500 mg solution for injection RxNorm: 0508889 1 Mill iliter(s) Inj 05/06/2017 05/06/2017 Inactive metformin 500 mg tablet RxNorm: 045936 TAKE 1/2 TABLET BY MOUTH TWICE DAILY 11/29/2016 10/12/2017 Inactive Vitamin D2 50,000 unit capsule RxNorm: 489012 1 Capsule(s) PO QW 04/08/2017 Inactive hydrochlorothiazide 25 mg tablet RxNorm: 415346 1 Table t(s) PO daily as needed edema 10/06/2016 02/02/2017 Inactive potassium chloride ER 10 mEq tablet,extended release RxNorm: 357511 1 Tablet(s) PO daily as needed when taking hctz 10/06/2016 02/02/2017 Inactive metformin 500 mg tablet RxNorm: 435388 1/2 Tablet(s) PO BID 017 10/12/2017 Inactive prednisone 20 mg tablet RxNorm: 865798 2 Tablet(s) PO P RN at onset of exposure to insect bite 10/06/2016 12/25/2018 Inactive tramadol 50 mg tablet RxNorm: 019733 1 Tablet(s) PO TID as needed arthritis pain 10/06/2016 02/02/2017 Inactive metformin 500 mg tablet RxNorm: 603762 1/2 TABLET(S) PO BID 016 10/05/2016 Inactive Vitamin D2 50,000 unit capsule RxNorm: 617022 1 Capsule(s) PO QW 08/26/2015 Inactive Vitamin D3 5,000 unit tablet RxNorm: 783706 1 Tablet(s) PO daily 01/14/2016 Inactive metformin 500 mg tablet RxNorm: 668569 1/2 Tablet(s) PO BID 015 03/02/2015 Inactive Vitamin D2 50,000 unit capsule RxNorm: 609130 1 Capsule(s) PO QW 05/28/2015 Inactive metformin 500 mg tablet RxNorm: 853055 1/2 Tablet(s) PO BID 015 02/25/2016 Inactive Vitamin D2 50,000 unit capsule RxNorm: 117716 1 Capsule(s) PO QW 03/02/2015 Inactive Xiidra 5 % eye drops in a dropperette RxNorm: 5904079 1 ophthalm ic (eye) BID 12/26/2018 Active Vitamin D3 1,000 unit tablet RxNorm: 377019 1 Tablet(s) PO daily 12/25/2018 Inactive Medication Administered Medication Codes Instructions Start Date Status ceftriaxone 500 mg solution for injection RxNorm: 1091163 1Milli liter 05/06/2017 No longer Active Kenalog 40 mg/mL suspension for injection RxNorm: 2559987 1Milli liter 05/06/2017 No longer Active Immunizations Vaccine Codes Date Status Influenza CVX: 135 01/22/2015 Tetanus, Diptheria, Pertussis CVX: 04/25/2012 Tetanus/Diptheria CVX: 04/25/2012 Results Observation Observation Code Item Item Code Result Date S ervice Location Comp Metabolic Isa437 NA 140 mEq/L 04/10/2020 Unkn own Comp Metabolic Fpq774 K 4.4 mEq/L 04/10/2020 Unkn own Comp Metabolic Jyr624 CL 101 mEq/L 04/10/2020 Unkn own Comp Metabolic Vsi705 CO2 31.0 mEq/L 04/10/2020 Unk nown Comp Metabolic Kty328 ANION GAP 12 04/10/2020 Unkn own Comp Metabolic Wwc703 GLUCOSE 105 mg/dL 04/10/2020 Unkn own Comp Metabolic Xsq223 Creat 0.9 mg/dL 04/10/2020 Unkn own Comp Metabolic Coy588 eGFR 66 ml/min/1.73m2 04/10/20 20 Unknown Comp Metabolic Mpl842 BUN 18 mg/dL 04/10/2020 Unkn own Comp Metabolic Grg295 B/C Ratio 19.6 Ratio 04/10/2020 Unk nown Comp Metabolic Uwo206 CALCIUM 9.3 mg/dL 04/10/2020 Unkn own Comp Metabolic Ulz708 ALK PHOS 64 U/L 04/10/2020 Unkn own Comp Metabolic Sfp398 AST(SGOT) 14 U/L 04/10/2020 Unkn own Comp Metabolic Bae269 ALT(SGPT) 13 U/L 04/10/2020 Unkn own Comp Metabolic Vtg738 BILI T 0.5 mg/dL 04/10/2020 Unkn own Comp Metabolic Xbz477 ALBUMIN 3.8 g/dL 04/10/2020 Unkn own Comp Metabolic Niy669 TPRO 6.8 g/dL 04/10/2020 Unkn own Comp Metabolic Wlb713 GLOB 3.0 g/dL 04/10/2020 Unkn own Comp Metabolic Xiu148 A/G Ratio 1.2 Ratio 04/10/2020 Unkn own Comp Metabolic Ipd480 Osmo 282 mOsmo 04/10/2020 Unkn own Tsh Ord6 TSH (3rd IS) 1.67 uIU/mL 04/10/2020 Unkn own %Hba1C Gtp831 % HbA1c 86040-2 6.0 % 04/10/2020 Unknown %Hba1C Nvf359 Gluc Ave 126 mg/dL 04/10/2020 Unknown Cbc [...] pg 04/10/20 Unknown Cbc With Differential Ord2 Graham% 7.3 % 04/10/20 Unknown Cbc With Differential [...] K/ul 020 Unknown Cbc With Differential Ord2 Graham ABS# 0.7 K/ul 04/10/20 Unknown Cbc With Differential Ord2 Eos ABS# 0.2 K/ul 04/10/20 20 Unknown Cbc With Differential Ord2 Baso ABS# 0.0 K/ul 04/10/20 Unknown Lipid Ord30 CHOL 169 mg/dL 04/10/2020 Unknown Lipid Ord30 HDL 40.0 mg/dl 04/10/2020 Unknown Lipid Ord30 TRIG 107 mg/dL 04/10/2020 Unknown Lipid Ord30 LDL 108 mg/dL 04/10/2020 Unknown Lipid Ord30 C/HDL 4.2 Ratio 04/10/2020 Unknown Vitamin D 25 Oh Tbf8435 VITAMIN D, 25 HYDROXY 17.87 ng/mL 04/10/2020 Unknown %Hba1C Rtm758 % HbA1c 80473-2 6.0 % 12/22/2018 Unknown %Hba1C Yod543 Gluc Ave 126 mg/dL 12/22/2018 Unknown Microalbumin Ziz737 MicroAlb <0.7 mg/dL 05/26/2018 Unkno wn Comp Metabolic Xlp780 NA 139 mEq/L 05/26/2018 Unkn own Comp Metabolic Sgf757 K 4.7 mEq/L 05/26/2018 Unkn own Comp Metabolic Jpd740 CL 101 mEq/L 05/26/2018 Unkn own Comp Metabolic Oxi055 CO2 32.0 mEq/L 05/26/2018 Unk nown Comp Metabolic Fyv155 ANION GAP 11 05/26/2018 Unkn own Comp Metabolic Osh257 GLUCOSE 98 mg/dL 05/26/2018 Unkn own Comp Metabolic Tsm213 Creat 0.9 mg/dL 05/26/2018 Unkn own Comp Metabolic Whf374 eGFR 69 ml/min/1.73m2 05/26/19 19 Unknown Comp Metabolic Tlo336 BUN 17 mg/dL 05/26/2018 Unkn own Comp Metabolic Ezd007 B/C Ratio 19.1 Ratio 05/26/2018 Unk nown Comp Metabolic Otu862 CALCIUM 9.3 mg/dL 05/26/2018 Unkn own Comp Metabolic Plr772 ALK PHOS 61 U/L 05/26/2018 Unkn own Comp Metabolic Vui994 AST(SGOT) 14 U/L 05/26/2018 Unkn own Comp Metabolic Nsu000 ALT(SGPT) 14 U/L 05/26/2018 Unkn own Comp Metabolic Ify103 BILI T 0.7 mg/dL 05/26/2018 Unkn own Comp Metabolic Uft797 ALBUMIN 3.8 g/dL 05/26/2018 Unkn own Comp Metabolic Nhl860 TPRO 6.9 g/dL 05/26/2018 Unkn own Comp Metabolic Zui821 GLOB 3.1 g/dL 05/26/2018 Unkn own Comp Metabolic Wxf439 A/G Ratio 1.2 Ratio 05/26/2018 Unkn own Comp Metabolic Zjw678 Osmo 279 mOsmo 05/26/2018 Unkn own Lipid [...] 05/26/19 19 Unknown Cbc With Differential Ord2 Graham% 8.5 % 05/26/19 19 Unknown Cbc With [...] K/ul 019 Unknown Cbc With Differential Ord2 Graham ABS# 0.7 K/ul 05/26/19 19 Unknown Cbc With Differential Ord2 Eos ABS# 0.2 K/ul 05/26/19 19 Unknown Cbc With Differential Ord2 Baso ABS# 0.1 K/ul 05/26/19 19 Unknown Tsh Ord6 TSH (3rd IS) 1.58 uIU/mL 05/26/2018 Unkn own %Hba1C Pxn213 % HbA1c 10063-3 5.8 % 05/26/2018 Unknown %Hba1C Vnp009 Gluc Ave 120 mg/dL 05/26/2018 Unknown C A/B FLU 2137164 Influenza A Scr Negative 05/06/2017 Unk nown C A/B FLU 2269877 Influenza B Scr Negative 05/06/2017 Unk nown C A/B FLU 3222219 Influenza Intrp B AG:PRID:PT:NOSE:NOM:IF See Footnote 05/06/2017 Unknown Free T4 Ppf226 FREE T4 1.03 ng/dL 03/02/2017 Unknown %Hba1C Tgn850 % HbA1c 95704-1 5.4 % 03/02/2017 Unknown %Hba1C Ibo220 Gluc Ave 108 mg/dL 03/02/2017 Unknown Comp Metabolic Vhd086 NA 140 mEq/L 03/02/2017 Unkn own Comp Metabolic Fmi288 K 4.4 mEq/L 03/02/2017 Unkn own Comp Metabolic Abv900 CL 101 mEq/L 03/02/2017 Unkn own Comp Metabolic Xxg796 CO2 29.0 mEq/L 03/02/2017 Unk nown Comp Metabolic Vir386 ANION GAP 14 03/02/2017 Unkn own Comp Metabolic Dik954 GLUCOSE 94 mg/dL 03/02/2017 Unkn own Comp Metabolic Qqj219 Creat 1.0 mg/dL 03/02/2017 Unkn own Comp Metabolic Yxq275 eGFR 63 ml/min/1.73m2 03/02/20 17 Unknown Comp Metabolic Uma089 BUN 20 mg/dL 03/02/2017 Unkn own Comp Metabolic Sql673 B/C Ratio 20.6 Ratio 03/02/2017 Unk nown Comp Metabolic Rql858 CALCIUM 9.2 mg/dL 03/02/2017 Unkn own Comp Metabolic Pgt078 ALK PHOS 67 U/L 03/02/2017 Unkn own Comp Metabolic Xvt158 AST(SGOT) 17 U/L 03/02/2017 Unkn own Comp Metabolic Pkq997 ALT(SGPT) 17 U/L 03/02/2017 Unkn own Comp Metabolic Zxm483 BILI T 0.5 mg/dL 03/02/2017 Unkn own Comp Metabolic Dvi091 ALBUMIN 3.9 g/dL 03/02/2017 Unkn own Comp Metabolic Aco919 TPRO 6.8 g/dL 03/02/2017 Unkn own Comp Metabolic Dmh710 GLOB 2.9 g/dL 03/02/2017 Unkn own Comp Metabolic Led164 A/G Ratio 1.4 Ratio 03/02/2017 Unkn own Comp Metabolic Kdk270 Osmo 282 mOsmo 03/02/2017 Unkn own Cbc [...] 03/02/20 17 Unknown Cbc With Differential Ord2 Graham% 8.3 % 03/02/20 17 Unknown Cbc With [...] K/ul 017 Unknown Cbc With Differential Ord2 Graham ABS# 0.8 K/ul 03/02/20 17 Unknown Cbc [...] Fe-%Sat 30.4 % 03/02/2017 Unknown Comp Metabolic Pbu782 NA 140 mEq/L 10/11/2016 Unkn own Comp Metabolic Zcc648 K 4.9 mEq/L 10/11/2016 Unkn own Comp Metabolic Mcm066 CL 100 mEq/L 10/11/2016 Unkn own Comp Metabolic Erc953 CO2 32.0 mEq/L 10/11/2016 Unk nown Comp Metabolic Spt977 ANION GAP 13 10/11/2016 Unkn own Comp Metabolic Lhq848 GLUCOSE 95 mg/dL 10/11/2016 Unkn own Comp Metabolic Ztf671 Creat 1.0 mg/dL 10/11/2016 Unkn own Comp Metabolic Gbt975 eGFR 64 ml/min/1.73m2 10/12/19 17 Unknown Comp Metabolic Iqg804 BUN 17 mg/dL 10/11/2016 Unkn own Comp Metabolic Fgx848 B/C Ratio 17.9 Ratio 10/11/2016 Unk nown Comp Metabolic Uvu360 CALCIUM 9.5 mg/dL 10/11/2016 Unkn own Comp Metabolic Wpm552 ALK PHOS 65 U/L 10/11/2016 Unkn own Comp Metabolic Set540 AST(SGOT) 16 U/L 10/11/2016 Unkn own Comp Metabolic Dii182 ALT(SGPT) 16 U/L 10/11/2016 Unkn own Comp Metabolic Lhj676 BILI T 0.6 mg/dL 10/11/2016 Unkn own Comp Metabolic Tzw481 ALBUMIN 3.8 g/dL 10/11/2016 Unkn own Comp Metabolic Cxc969 TPRO 6.7 g/dL 10/11/2016 Unkn own Comp Metabolic Drq095 GLOB 2.9 g/dL 10/11/2016 Unkn own Comp Metabolic Lyl733 A/G Ratio 1.3 Ratio 10/11/2016 Unkn own Comp Metabolic Qno429 Osmo 281 mOsmo 10/11/2016 Unkn own Cbc [...] 10/12/19 17 Unknown Cbc With Differential Ord2 Graham% 8.2 % 10/12/19 17 Unknown Cbc With [...] K/ul 017 Unknown Cbc With Differential Ord2 Graham ABS# 0.7 K/ul 10/12/19 17 Unknown Cbc With Differential Ord2 Eos ABS# 0.2 K/ul 10/12/19 17 Unknown Cbc With Differential Ord2 Baso ABS# 0.0 K/ul 10/12/19 17 Unknown Vitamin D 25 Oh Ylx6148 VITAMIN D, 25 HYDROXY 14.10 ng/mL 10/11/2016 Unknown Lipid Ord30 CHOL 169 mg/dL 10/11/2016 Unknown Lipid Ord30 HDL 44.0 mg/dl 10/11/2016 Unknown Lipid Ord30 TRIG 139 mg/dL 10/11/2016 Unknown Lipid Ord30 LDL 97 mg/dL 10/11/2016 Unknown Lipid Ord30 C/HDL 3.8 Ratio 10/11/2016 Unknown %Hba1C Qfj018 % HbA1c 25119-8 5.5 % 10/11/2016 Unknown %Hba1C Zlv796 Gluc Ave 111 mg/dL 10/11/2016 Unknown Tsh [...] 01/19/20 16 Unknown Cbc With Differential Ord2 Graham% 7.7 % 01/19/20 16 Unknown Cbc With [...] K/ul 016 Unknown Cbc With Differential Ord2 Graham ABS# 0.7 K/ul 01/19/20 16 Unknown Cbc [...] Ratio 01/19/2016 Unknown Vitamin D 25 Oh Osw7974 VITAMIN D, 25 HYDROXY 33.57 ng/mL 01/19/2016 Unknown %Hba1C Kew796 % HbA1c 66880-4 5.6 % 01/19/2016 Unknown %Hba1C Txv052 Gluc Ave 114 mg/dL 01/19/2016 Unknown Comp Metabolic Rdn138 NA 136 mEq/L 01/19/2016 Unkn own Comp Metabolic Zdh139 K 4.1 mEq/L 01/19/2016 Unkn own Comp Metabolic Byk175 CL 100 mEq/L 01/19/2016 Unkn own Comp Metabolic Kiq317 CO2 32.0 mEq/L 01/19/2016 Unk nown Comp Metabolic Bnf605 ANION GAP 8 01/19/2016 Unkn own Comp Metabolic Mvl589 GLUCOSE 96 mg/dL 01/19/2016 Unkn own Comp Metabolic Hhz799 Creat 0.9 mg/dL 01/19/2016 Unkn own Comp Metabolic Rbh320 eGFR 68 ml/min/1.73m2 01/19/20 16 Unknown Comp Metabolic Msl313 BUN 19 mg/dL 01/19/2016 Unkn own Comp Metabolic Wes157 B/C Ratio 20.9 Ratio 01/19/2016 Unk nown Comp Metabolic Kye196 CALCIUM 9.4 mg/dL 01/19/2016 Unkn own Comp Metabolic Cbl304 ALK PHOS 59 U/L 01/19/2016 Unkn own Comp Metabolic Vzc459 AST(SGOT) 15 U/L 01/19/2016 Unkn own Comp Metabolic Bvi335 ALT(SGPT) 15 U/L 01/19/2016 Unkn own Comp Metabolic Xdj111 BILI T 0.6 mg/dL 01/19/2016 Unkn own Comp Metabolic Kdn872 ALBUMIN 3.9 g/dL 01/19/2016 Unkn own Comp Metabolic Zrj015 TPRO 6.8 g/dL 01/19/2016 Unkn own Comp Metabolic Gwq326 GLOB 2.9 g/dL 01/19/2016 Unkn own Comp Metabolic Cst527 A/G Ratio 1.4 Ratio 01/19/2016 Unkn own Comp Metabolic Yjq886 Osmo 274 mOsmo 01/19/2016 Unkn own Tsh Ord6 hTSH II 1.47 uIU/mL 01/19/2016 Unknown %Hba1C Glv177 % HbA1c 02996-3 5.9 % 05/30/2015 Unknown %Hba1C Axf038 Gluc Ave 123 mg/dL 05/30/2015 Unknown Tsh Ord6 hTSH II 1.51 uIU/mL 02/27/2015 Unknown Comp Metabolic Jxc464 NA 134 mEq/L 02/27/2015 Unkn own Comp Metabolic Yav639 K 4.3 mEq/L 02/27/2015 Unkn own Comp Metabolic Enj990 CL 102 mEq/L 02/27/2015 Unkn own Comp Metabolic Yrl589 CO2 24.0 mEq/L 02/27/2015 Unk nown Comp Metabolic Rvo366 ANION GAP 12 02/27/2015 Unkn own Comp Metabolic Ryg451 GLUCOSE 131 mg/dL 02/27/2015 Unkn own Comp Metabolic Fgg400 Creat 1.1 mg/dL 02/27/2015 Unkn own Comp Metabolic Baq867 eGFR 57 ml/min/1.73m2 02/28/20 15 Unknown Comp Metabolic Apd977 BUN 17 mg/dL 02/27/2015 Unkn own Comp Metabolic Uxq049 B/C Ratio 16.2 Ratio 02/27/2015 Unk nown Comp Metabolic Uik993 CALCIUM 9.4 mg/dL 02/27/2015 Unkn own Comp Metabolic Umt656 ALK PHOS 73 U/L 02/27/2015 Unkn own Comp Metabolic Hit791 AST(SGOT) 18 U/L 02/27/2015 Unkn own Comp Metabolic Ecx344 ALT(SGPT) 17 U/L 02/27/2015 Unkn own Comp Metabolic Qkb384 BILI T 0.8 mg/dL 02/27/2015 Unkn own Comp Metabolic Xzz034 ALBUMIN 3.9 g/dL 02/27/2015 Unkn own Comp Metabolic Tfc552 TPRO 7.2 g/dL 02/27/2015 Unkn own Comp Metabolic Wyb267 GLOB 3.3 g/dL 02/27/2015 Unkn own Comp Metabolic Fas702 A/G Ratio 1.2 Ratio 02/27/2015 Unkn own Comp Metabolic Hlg995 Osmo 272 mOsmo 02/27/2015 Unkn own Lipid Ord30 CHOL 197 mg/dL 02/27/2015 Unknown Lipid Ord30 HDL 41.0 mg/dl 02/27/2015 Unknown Lipid Ord30 TRIG 137 mg/dL 02/27/2015 Unknown Lipid Ord30 LDL 129 mg/dL 02/27/2015 Unknown Lipid Ord30 C/HDL 4.8 Ratio 02/27/2015 Unknown Free T4 Eeu981 FREE T4 1.10 ng/dL 02/27/2015 Unknown Vitamin D 25 Oh Sxu1805 VITAMIN D, 25 HYDROXY 10.95 ng/mL 02/27/2015 [...] RDW 14.9 % 02/27/20 15 Unknown %Hba1C Vir008 % HbA1c 86474-1 7.3 % 02/26/2015 Unknown %Hba1C Baw753 Gluc Ave 163 mg/dL 02/26/2015 Unknown Procedures Procedure Codes Date ROCBRIGIDOHIN, PER 250 MG CPT-4: J0696 05/06/2017 TRIAMCINOLONE ACET INJ NOS 10 mg CPT-4: J3301 018 Vital Signs Date Vital 08/05/2020 Blood Pressure 1: 142/78 Code: 8480-6 BMI: 50.9 Code: 35734-8 Heart Rate 1: 87 bpm Height: 5'8" Code: 8302-2 SpO2: 98% Temperature: 3 6.2 (C) / 97.1 (F) Weight: 335 lbs Code: 19928-9 03/24/2020 Blood Pressure 1: 132/74 Code: 8480-6 BMI: 51.7 Code: 17110-3 Heart Rate 1: 90 bpm Height: 5'8" Code: 8302-2 Respiratory Rate: 15 bpm SpO2: 95% Temperature: 36.4 (C) / 97.5 (F) Weight: 340 lbs Code: 23811-3 12/26/2018 BMI: 52.6 Code: 92287-7 Heart Rate 1: 80 bpm Hei ght: 5'8" Code: 8302-2 Respiratory Rate: 16 bpm SpO2: 98% Weight: 346 lbs Code: 69736-7 05/25/2018 Blood Pressure 1: 122/68 Code: 8480-6 BMI: 52.6 Code: 94555-1 Heart Rate 1: 69 bpm Height: 5'8" Code: 8302-2 SpO2: 96% Weight: 346 lb s Code: 06111-8 05/06/2017 Blood Pressure 1: 134/76 Code: 8480-6 Heart Rate 1: 84 bpm Height: 5'8" Code: 8302-2 SpO2: 96% Temperature: 36.6 (C) / 97.8 (F) Weight: Code: 68636-9 03/02/2017 Blood Pressure 1: 132/72 Code: 8480-6 BMI: 51.2 Code: 97618-6 Heart Rate 1: 67 bpm Height: 5'8" Code: 8302-2 SpO2: 98% Weight: 337 lb s Code: 14414-1 10/06/2016 Blood Pressure 1: 128/76 Code: 8480-6 BMI: 50.9 Code: 72783-3 Heart Rate 1: 70 bpm Height: 5'8" Code: 8302-2 SpO2: 98% Weight: 335 lb s Code: 82998-8 01/15/2016 Blood Pressure 1: 130/72 Code: 8480-6 BMI: 49.3 Code: 23522-7 Heart Rate 1: 68 bpm Height: 5'8" Code: 8302-2 SpO2: 98% Weight: 324 lb s Code: 58934-1 05/29/2015 Blood Pressure 1: 136/80 Code: 8480-6 BMI: 52.2 Code: 35830-4 Heart Rate 1: 69 bpm Height: 5'8" Code: 8302-2 SpO2: 97% Weight: 343 lb s Code: 52871-5 03/31/2015 Blood Pressure 1: 136/78 Code: 8480-6 BMI: 53.4 Code: 28659-8 Heart Rate 1: 69 bpm Height: 5'8" Code: 8302-2 SpO2: 96% Weight: 351 lb s Code: 15384-5 02/26/2015 Blood Pressure 1: 128/80 Code: 8480-6 BMI: 56.3 Code: 61551-3 Heart Rate 1: 79 bpm Height: 5'8" Code: 8302-2 SpO2: 96% Weight: 370 lb s Code: 68896-4 Functional Status No Functional Status data Reason For Visit Reason For Visit Effective Dates Notes rash 08/05/2020 diabetes mellitus 03/24/2020 diabetes mellitus 12/26/2018 diabetes mellitus 05/25/2018 fever 05/06/2017 diabetes mellitus 03/02/2017 diabetes mellitus 10/06/2016 diabetes mellitus 01/15/2016 fatigue 05/29/2015 fatigue 03/31/2015 fatigue 02/26/2015 Encounters Encounter Performer Location Codes Date ( [id number] EST. PATIENT, LEVEL III Diagnosis: Superficial phlebitis and thrombophlebitis of left leg[ICD10: I80.02] [facility] CPT-4: 28416 08/06/19 21 ([id number]) PREV VISIT EST AGE 40-64 Diagnosis: Encounter for general adult medical examination with abnormal findings[ICD10: Z00.01] [facility] CPT-4: 94332 03/24/2020 ([id number]) 72680 EST. PATIENT, LEVEL IV Diagnosis: Type 2 diabetes mellitus without complications[ICD10: E11.9] Diagnosis: Mastodynia[ICD10: N64.4] Diagnosis: Pain in left knee[ICD10: M25.562] Diagnosis: Bilateral primary osteoarthritis of knee[ICD10: M17.0] Divya Garcia MD, [facility] CPT-4: 37047 12/26/2018 ([id number]) PREV VISIT EST AGE 40-64 Diagnosis: Encounter for general adult medical examination with abnormal findings[ICD10: Z00.01] Divya Garcia MD, [facility] CPT-4: 15877 05/25/2018 65110 EST. PATIENT, LEVEL III Diagnosis: Other malaise[ICD10: R53.81] Diagnosis: Fever, unspecified[ICD10: R50.9] Diagnosis: Acute laryngopharyngitis[ICD10: J06.0] Norma Terrell MD, [facility] CPT-4: 88013 05/06/2017 ([id number]) 24162 EST. PATIENT, LEVEL IV Diagnosis: Type 2 diabetes mellitus without complications[ICD10: E11.9] Diagnosis: Nontoxic multinodular goiter[ICD10: E04.2] Diagnosis: Morbid (severe) obesity due to excess calories[ICD10: E66.01] Diagnosis: Nonscarring hair loss, unspecified[ICD10: L65.9] Divya Garcia MD, [facility] CPT-4: 74852 03/02/2017 ([id number]) PREV VISIT EST AGE 40-64 Diagnosis: Encounter for general adult medical examination with abnormal findings[ICD10: Z00.01] [facility] CPT-4: 65094 10/06/2016 ([id number]) 19925 EST. PATIENT, LEVEL IV Diagnosis: Type 2 diabetes mellitus without complications[ICD10: E11.9] Diagnosis: Morbid (severe) obesity due to excess calories[ICD10: E66.01] Diagnosis: Vitamin D deficiency, unspecified[ICD10: E55.9] Diagnosis: Nontoxic multinodular goiter[ICD10: E04.2] Divya Garcia MD, [facility] CPT-4: 43432 01/15/2016 ([id number]) 40726 EST. PATIENT, LEVEL III Diagnosis: Type 2 diabetes mellitus without complications[ICD10: E11.9] [facility] CPT-4: 21485 05/29/2015 ([id number]) 70439 EST. PATIENT, LEVEL III Diagnosis: Type 2 diabetes mellitus without complications[ICD10: E11.9] Diagnosis: Vitamin D deficiency, unspecified[ICD10: E55.9] [facility] CPT-4: 92343 03/31/2015 ([id number]) PREV VISIT NEW AGE 40-64 Diagnosis: Encounter for general adult medical examination with abnormal findings[ICD10: Z00.01] [facility] CPT-4: 62300 02/26/2015 Plan of Care Planned Activity Notes Codes Status Date Appointment: Divya Garcia WPtel: [phone] [id number] [place] (15 min) Moderate 12/22/2020 [facility]: [phone] [place] ([facility]) Moderate 11/06/2020 [facility]ment: [phone] [place] ([facility] [place]) Moderate 10/15/2020 [facility]ment: [phone] [place] ([place]) Moderate 09/15/2020 Visit Plan: [...] going today. 08/05/2020 Appointment: [phone] [place] [place] (30 min) Complex 08/05/2020 Patient Education: [...] augment sleep. 03/24/2020 Appointment: [facility] [phone] [facility] [place] ([facility] min) Moderate 03/24/2020 Patient Education: Patient Medication Summary Completed 03/24/2020 Patient Education: Diabetes Completed 03/24/2020 [facility]ment: [phone] [place] ([facility] min) Moderate 03/06/2020 [facility]: [phone] [place] ([facility] min) Moderate 02/06/2019 Visit [...] the pharmacy. 12/26/2018 App[facility]ment: [phone] [place] (15 min) Moderate 12/26/2018 Patient Education: Patient Medication Summary Completed 12/26/2018 Patient Education: Diabetes Completed 12/26/2018 Care Plan: Unilateral DIAGNOSTICMAMMOGRAPHYDIGITAL LOINC : [id number] Pending 12/26/2018 Patient Education: Patient Medication Summary Completed 12/14/2018 Appointment: Divya Garcia WPtel: [address] [place], [place] [id number] (15 min) Moderate 12/13/2018 Visit Plan: Well [...] Free T4 05/25/2018 Appointment: Divya Garcia WPtel: [phone] [id number] (15 min) Moderate 05/25/2018 Patient Education: Patient Medication Summary Completed 05/25/2018 Patient Education: Obesity Completed 0 05/25/2018 Appointment: Divya Garcia WPtel: [id number] (15 min) Moderate 07/11/2017 Appointment: Divya Garcia WPtel: [facility]4 [id number] (15 min) Moderate 06/28/2017 Visit Plan: URI [...] spray. 05/06/2017 Appointment: Norma Isbell WPtel: [phone] [id number] (15 min) Moderate 05/06/2017 Patient Education: Patient [...] ESR 03/02/2017 Appointment: Divya Garcia WPtel: [phone] [id number] (15 min) Moderate 03/02/2017 Patient Education: Patient Medication Summary Completed 03/02/2017 Patient Education: Obesity Completed 1 05/02/2016 Care Plan: Iron Pending 03/02/2017 Appointment: Divya Garcia WPtel: [phone] [id number] (15 min) Moderate 01/31/2017 Visit Plan: Well [...] the patient. 10/06/2016 Appointment: Divya Garcia WPtel: [phone] [id number] [place] (15 min) Moderate 10/06/2016 Patient Education: Patient Medication Summary Completed 10/06/2016 Patient Education: Obesity Completed 0 10/06/2016 Appointment: Divya Garcia WPtel: [phone] [id number] [place] (15 min) Moderate 09/15/2016 Appointment: Divya Garcia WPtel: [phone] [id number] [place] (15 min) Moderate 08/16/2016 Appointment: Divya Garcia WPtel: [phone] [id number] [place] (15 min) Moderate 07/15/2016 Patient Education: Patient Medication Summary Completed 01/27/2016 Care Plan: SCREENINGMAMMOGRAPHYDIGITAL L OINC : 30198-2 Pending 01/27/2016 Visit Plan: Diabetes Mellitus - [...] labs 01/15/2016 Appointment: Divya Garcia WPtel: [phone] [id number] [place] (15 min) Moderate 01/15/2016 Patient Education: Patient Medication Summary Completed 01/15/2016 Patient Education: Obesity Completed 0 01/15/2016 Appointment: Divya Garcia WPtel: [phone] [id number] (15 min) Moderate 08/26/2015 Visit Plan: Diabetes [...] or belviq 05/29/2015 Appointment: Divya Garcia WPtel: [phone] [id number] (15 min) Moderate 05/29/2015 Patient Education: Patient [...] less controlled. 03/31/2015 Appointment: [id number] [place] (15 min) Moderate 03/31/2015 Patient [...] glucose levels. 02/26/2015 Appointment: Divya Garcia WPtel: [address] [place], [place] [id number] [place] (S) New Patient 02/26/2015 Patient Education: Patient Medication Summary Completed 02/26/2015 Instructions Comment COLD COMPRESSES TO LEFT LEG CEPHALEXIN 500MG [...] Diabetes Mellitus - controlled - per r ent FSBS reports. I have recommended for the [...]
--- OUTSIDE RECORDS SUMMARY | 2020-12-30 12:39 | XMS REPORT | CCD ---
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 Never smoker 02/26/[address]: 631382596 Never drinks alcohol 2014 Allergies, Adverse Reactions, [...] Instructions ondansetron 4 mg disintegrating tablet RxNorm: 705365 1 Tablet(s) Oral Q6 as needed 12/24/2020 01/22/2021 Active Cipro 500 mg tablet RxNorm: 633998 1 Tablet(s) Oral two times a day 12/24/2020 12/24/2020 Inactive ondansetron 4 mg disintegrating tablet RxNorm: 378620 1 Tablet(s) Oral Q6 as needed 12/24/2020 12/24/2020 Inactive Flagyl 500 mg tablet RxNorm: 465161 1 Tablet(s) Oral three time s a day 12/24/2020 12/30/2020 Active Flagyl 500 mg tablet RxNorm: 391328 1 Tablet(s) Oral three time s a day 12/24/2020 12/24/2020 Inactive lactulose 10 gram/15 mL (15 mL) oral solution RxNorm: 804804 15 Milliliter(s) Oral every day take dose daily until has BM then change to PRN 12/24/2020 12/24/2020 Inactive 1 bottle bupropion HCl 75 mg tablet RxNorm: 712465 1 Tablet(s) Oral two times a day 12/24/2020 12/24/2020 Inactive bupropion HCl 75 mg tablet RxNorm: 921771 1 Tablet(s) Oral two times a day 12/24/2020 01/22/2021 Active lactulose 10 gram/15 mL (15 mL) oral solution RxNorm: 748335 15 Milliliter(s) Oral every day take dose daily until has BM then change to PRN 12/24/2020 01/22/2021 Active 1 bottle Cipro 500 mg tablet RxNorm: 183193 1 Tablet(s) Oral two times a day 12/24/2020 12/30/2020 Active fluconazole 150 mg tablet RxNorm: 996780 Take 1 Tablet(s) Oral every other day 12/22/2020 12/27/2020 Active nystatin 100,000 unit/mL oral suspension RxNorm: 809645 Take 5 Milliliter(s) Oral four times a day 12/22/2020 12/31/2020 Active Diflucan 150 mg tablet RxNorm: 506353 Take 1 Tablet(s) Oral jeffy ry day 12/04/2020 12/04/2020 Inactive Diflucan 150 mg tablet RxNorm: 745557 Take 1 Tablet(s) Oral jeffy ry day 12/04/2020 12/10/2020 Inactive cephalexin 500 mg tablet RxNorm: 472560 1 Tablet(s) Oral three times a day 08/05/2020 08/12/2020 Inactive metformin 500 mg tablet RxNorm: 890432 TKAE 1/2 TABLET BY MOUTH TWICE DAILY 05/12/2020 02/05/2021 Active Vitamin D2 1,250 mcg (50,000 unit) capsule RxNorm: 5528195 1 Capsule(s) Oral once a week 04/15/2020 07/14/2020 Inactive tramadol 50 mg tablet RxNorm: 894568 1 Tablet(s) Oral t hree times a day as needed arthritis pain 03/24/2020 07/21/2020 Inactive metformin 500 mg tablet RxNorm: 473631 TKAE 1/2 TABLET BY MOUTH TWICE DAILY 02/11/2020 05/10/2020 Inactive metformin 500 mg tablet RxNorm: 583869 TABLET(S) TAKE 1 /2 TABLET BY MOUTH TWICE DAILY 07/12/2019 02/10/2020 Inactive metformin 500 mg tablet RxNorm: 022671 TABLET(S) TAKE 1 /2 TABLET BY MOUTH TWICE DAILY 06/19/2019 07/11/2019 Inactive Keflex 500 mg capsule RxNorm: 038717 1 Capsule(s) Oral three ti mes a day 05/03/2019 05/02/2019 Inactive cephalexin 500 mg tablet RxNorm: 919419 1 Tablet(s) Oral three times a day 05/03/2019 05/10/2019 Inactive interactions reviewe d, fill the medication as written please Bactrim DS 800 mg-160 mg tablet RxNorm: 202553 1 Tablet(s) Oral two times a day 03/23/2019 03/22/2019 Inactive Bactrim DS 800 mg-160 mg tablet RxNorm: 876597 1 Tablet(s) Oral two times a day 03/23/2019 04/01/2019 Inactive Vitamin D3 5,000 unit tablet RxNorm: 857310 1 Tablet(s) PO daily No Stop Date Active Voltaren 1 % topical gel RxNorm: 284683 2 Gram(s) TOP QID 12/26/2018 04/24/2019 Inactive metformin 500 mg tablet RxNorm: 059075 TABLET(S) TAKE 1 /2 TABLET BY MOUTH TWICE DAILY 10/30/2018 06/18/2019 Inactive metformin 500 mg tablet RxNorm: 630762 TABLET(S) TAKE 1 /2 TABLET BY MOUTH TWICE DAILY 05/18/2018 10/29/2018 Inactive metformin 500 mg tablet RxNorm: 291378 Tablet(s) TAKE 1 /2 TABLET BY MOUTH TWICE DAILY 10/13/2017 04/10/2018 Inactive metformin 500 mg tablet RxNorm: 983984 TAKE 1/2 TABLET BY MOUTH TWICE DAILY 09/02/2017 10/12/2017 Inactive Phenergan with Codeine Syrup RxNorm: 5-10 Milliliter(s) PO QID as needed 05/06/2017 10/29/2018 Inactive Kenalog 40 mg/mL suspension for injection RxNorm: 6237763 1 Mill iliter(s) Inj 05/06/2017 05/06/2017 Inactive Tamiflu 75 mg capsule RxNorm: 220137 1 Capsule(s) PO BID 05/06/2017 0 05/10/2017 Inactive prednisone 20 mg tablet RxNorm: 441230 2 Tablet(s) PO daily 018 05/10/2017 Inactive cefdinir 300 mg capsule RxNorm: 333682 1 Capsule(s) PO BID 05/06/19 18 05/15/2017 Inactive Zithromax Z-Xavier 250 mg tablet RxNorm: 751850 1 Tablet(s) PO UD 04/2505/17/2018 Inactive ceftriaxone 500 mg solution for injection RxNorm: 3188326 1 Mill iliter(s) Inj 05/06/2017 05/06/2017 Inactive metformin 500 mg tablet RxNorm: 046522 TAKE 1/2 TABLET BY MOUTH TWICE DAILY 11/29/2016 10/12/2017 Inactive Vitamin D2 50,000 unit capsule RxNorm: 209259 1 Capsule(s) PO QW 04/08/2017 Inactive hydrochlorothiazide 25 mg tablet RxNorm: 733300 1 Table t(s) PO daily as needed edema 10/06/2016 02/02/2017 Inactive potassium chloride ER 10 mEq tablet,extended release RxNorm: 738656 1 Tablet(s) PO daily as needed when taking hctz 10/06/2016 02/02/2017 Inactive metformin 500 mg tablet RxNorm: 851295 1/2 Tablet(s) PO BID 017 10/12/2017 Inactive prednisone 20 mg tablet RxNorm: 727066 2 Tablet(s) PO P RN at onset of exposure to insect bite 10/06/2016 12/25/2018 Inactive tramadol 50 mg tablet RxNorm: 539253 1 Tablet(s) PO TID as needed arthritis pain 10/06/2016 02/02/2017 Inactive metformin 500 mg tablet RxNorm: 090623 1/2 TABLET(S) PO BID 016 10/05/2016 Inactive Vitamin D2 50,000 unit capsule RxNorm: 324636 1 Capsule(s) PO QW 08/26/2015 Inactive Vitamin D3 5,000 unit tablet RxNorm: 607905 1 Tablet(s) PO daily 01/14/2016 Inactive metformin 500 mg tablet RxNorm: 102182 1/2 Tablet(s) PO BID 015 03/02/2015 Inactive Vitamin D2 50,000 unit capsule RxNorm: 608752 1 Capsule(s) PO QW 05/28/2015 Inactive metformin 500 mg tablet RxNorm: 235066 1/2 Tablet(s) PO BID 015 02/25/2016 Inactive Vitamin D2 50,000 unit capsule RxNorm: 774624 1 Capsule(s) PO QW 03/02/2015 Inactive Xiidra 5 % eye drops in a dropperette RxNorm: 5742783 1 ophthalm ic (eye) BID 12/26/2018 Active Vitamin D3 1,000 unit tablet RxNorm: 706486 1 Tablet(s) PO daily 12/25/2018 Inactive Medication Administered Medication Codes Instructions Start Date Status ceftriaxone 500 mg solution for injection RxNorm: 9621809 1Milli liter 05/06/2017 No longer Active Kenalog 40 mg/mL suspension for injection RxNorm: 5584547 1Milli liter 05/06/2017 No longer Active Immunizations Vaccine Codes Date Status Influenza CVX: 135 01/22/2015 Tetanus, Diptheria, Pertussis CVX: 04/25/2012 Tetanus/Diptheria CVX: 04/25/2012 Results Observation Observation Code Item Item Code Result Date S ervice Location Comp Metabolic Jgm379 NA 140 mEq/L 04/10/2020 Unkn own Comp Metabolic Ass070 K 4.4 mEq/L 04/10/2020 [facility] own Comp Metabolic Aev560 CL 101 mEq/L 04/10/2020 [facility] own Comp Metabolic Yzu826 CO2 31.0 mEq/L 04/10/2020 [facility] nown Comp Metabolic Prw376 ANION GAP 12 04/10/2020 Unkn own Comp Metabolic Lbd619 GLUCOSE 105 mg/dL 04/10/2020 Unkn own Comp Metabolic Kch446 Creat 0.9 mg/dL 04/10/2020 Unkn own Comp Metabolic Vfp116 eGFR 66 ml/min/1.73m2 04/10/20 20 Unknown Comp Metabolic Yfr799 BUN 18 mg/dL 04/10/2020 Unkn own Comp Metabolic Epk300 B/C Ratio 19.6 Ratio 04/10/2020 [facility]k nown Comp Metabolic Kqo380 CALCIUM 9.3 mg/dL 04/10/2020 [facility] own Comp Metabolic Otp174 ALK PHOS 64 U/L 04/10/2020 [facility] own Comp Metabolic Njx705 AST(SGOT) 14 U/L 04/10/2020 Unkn own Comp Metabolic Wkw451 ALT(SGPT) 13 U/L 04/10/2020 Unkn own Comp Metabolic Lvc696 BILI T 0.5 mg/dL 04/10/2020 Unkn own Comp Metabolic Cjs656 ALBUMIN 3.8 g/dL 04/10/2020 Unkn own Comp Metabolic Sbu178 TPRO 6.8 g/dL 04/10/2020 Unkn own Comp Metabolic Vlm875 GLOB 3.0 g/dL 04/10/2020 Unkn own Comp Metabolic Wto056 A/G Ratio 1.2 Ratio 04/10/2020 Unkn own Comp Metabolic Hhm746 Osmo 282 mOsmo 04/10/2020 Unkn own Tsh Ord6 TSH (3rd IS) 1.67 uIU/mL 04/10/2020 Unkn own %Hba1C Fql989 % HbA1c 79249-5 6.0 % 04/10/2020 Unknown %Hba1C Ttg553 Gluc Ave 126 mg/dL 04/10/2020 Unknown Cbc With Differential Ord2 WBC 9.37 K/ul 04/10/20 Unknown Cbc With Differential Ord2 RBC 4.58 M/ul 04/10/20 20 Unknown Cbc With Differential Ord2 HGB 14.3 g/dl 04/10/20 20 Unknown Cbc With Differential Ord2 HCT 44.0 % 04/10/20 Unknown Cbc With Differential Ord2 Neut% 67.0 % 04/10/20 Unknown Cbc With Differential Ord2 MCV 96.1 fl 04/10/20 Unknown Cbc With Differential Ord2 Lymph% 23.7 % 04/10/20 Unknown Cbc With Differential Ord2 MCH 31.2 pg 04/10/20 Unknown Cbc With Differential Ord2 Summers% 7.3 % 04/10/20 Unknown Cbc With Differential [...] K/ul 020 Unknown Cbc With Differential Ord2 Summers ABS# 0.7 K/ul 04/10/20 Unknown Cbc With [...] Ratio 04/10/2020 Unknown Vitamin D 25 Oh Qfk0984 VITAMIN D, 25 HYDROXY 17.87 ng/mL 04/10/2020 Unknown %Hba1C Kjo607 % HbA1c 17906-5 6.0 % 12/22/2018 Unknown %Hba1C Kfj642 Gluc Ave 126 mg/dL 12/22/2018 Unknown Microalbumin Ixr108 MicroAlb <0.7 mg/dL 05/26/2018 Unkno wn Comp Metabolic Ntn118 NA 139 mEq/L 05/26/2018 Un[facility] own Comp Metabolic Ofp138 K 4.7 mEq/L 05/26/2018 Unkn own Comp Metabolic Xog341 CL 101 mEq/L 05/26/2018 Unkn own Comp Metabolic Wlv411 CO2 32.0 mEq/L 05/26/2018 Unk nown Comp Metabolic Joy419 ANION GAP 11 05/26/2018 Unkn own Comp Metabolic Cog539 GLUCOSE 98 mg/dL 05/26/2018 Unkn own Comp Metabolic Bne890 Creat 0.9 mg/dL 05/26/2018 Unkn own Comp Metabolic Rbc143 eGFR 69 ml/min/1.73m2 05/26/19 19 Unknown Comp Metabolic Aty874 BUN 17 mg/dL 05/26/2018 Unkn own Comp Metabolic Yxk064 B/C Ratio 19.1 Ratio 05/26/2018 Unk nown Comp Metabolic Wpp996 CALCIUM 9.3 mg/dL 05/26/2018 Unkn own Comp Metabolic Zpn446 ALK PHOS 61 U/L 05/26/2018 Unkn own Comp Metabolic Biq121 AST(SGOT) 14 U/L 05/26/2018 Unkn own Comp Metabolic Fyc273 ALT(SGPT) 14 U/L 05/26/2018 Unkn own Comp Metabolic Ntu825 BILI T 0.7 mg/dL 05/26/2018 Unkn own Comp Metabolic Mce038 ALBUMIN 3.8 g/dL 05/26/2018 Unkn own Comp Metabolic Mrq513 TPRO 6.9 g/dL 05/26/2018 Unkn own Comp Metabolic Vhq934 GLOB 3.1 g/dL 05/26/2018 Unkn own Comp Metabolic Kly637 A/G Ratio 1.2 Ratio 05/26/2018 Unkn own Comp Metabolic Uda477 Osmo 279 mOsmo 05/26/2018 Unkn own Lipid [...] 05/26/19 19 Unknown Cbc With Differential Ord2 Summers% 8.5 % 05/26/19 19 Unknown Cbc With [...] K/ul 019 Unknown Cbc With Differential Ord2 Summers ABS# 0.7 K/ul 05/26/19 19 Unknown Cbc With Differential Ord2 Eos ABS# 0.2 K/ul 05/26/19 19 Unknown Cbc With Differential Ord2 Baso ABS# 0.1 K/ul 05/26/19 19 Unknown Tsh Ord6 TSH (3rd IS) 1.58 uIU/mL 05/26/2018 Unkn own %Hba1C Oju404 % HbA1c 32037-5 5.8 % 05/26/2018 Unknown %Hba1C Rhp659 Gluc Ave 120 mg/dL 05/26/2018 Unknown C A/B FLU 8666190 Influenza A Scr Negative 05/06/2017 Unk nown C A/B FLU 5942144 Influenza B Scr Negative 05/06/2017 Unk nown C A/B FLU 7411958 Influenza Intrp B AG:PRID:PT:NOSE:NOM:IF See Footnote 05/06/2017 Unknown Free T4 Vhd405 FREE T4 1.03 ng/dL 03/02/2017 Unknown %Hba1C Jfz974 % HbA1c 85711-6 5.4 % 03/02/2017 Unknown %Hba1C Fms011 Gluc Ave 108 mg/dL 03/02/2017 Unknown Comp Metabolic Hme816 NA 140 mEq/L 03/02/2017 Unkn own Comp Metabolic Qvw416 K 4.4 mEq/L 03/02/2017 Unkn own Comp Metabolic Ame623 CL 101 mEq/L 03/02/2017 Unkn own Comp Metabolic Vsh982 CO2 29.0 mEq/L 03/02/2017 Unk nown Comp Metabolic Hgt477 ANION GAP 14 03/02/2017 Unkn own Comp Metabolic Dac435 GLUCOSE 94 mg/dL 03/02/2017 Unkn own Comp Metabolic Qjx632 Creat 1.0 mg/dL 03/02/2017 Unkn own Comp Metabolic Fyw219 eGFR 63 ml/min/1.73m2 03/02/20 17 Unknown Comp Metabolic Wje339 BUN 20 mg/dL 03/02/2017 Unkn own Comp Metabolic Dbn902 B/C Ratio 20.6 Ratio 03/02/2017 Unk nown Comp Metabolic Pgq301 CALCIUM 9.2 mg/dL 03/02/2017 Unkn own Comp Metabolic Xxt581 ALK PHOS 67 U/L 03/02/2017 Unkn own Comp Metabolic Ref652 AST(SGOT) 17 U/L 03/02/2017 Unkn own Comp Metabolic Slu514 ALT(SGPT) 17 U/L 03/02/2017 Unkn own Comp Metabolic Aqn319 BILI T 0.5 mg/dL 03/02/2017 Unkn own Comp Metabolic Nlw858 ALBUMIN 3.9 g/dL 03/02/2017 Unkn own Comp Metabolic Ivl051 TPRO 6.8 g/dL 03/02/2017 Unkn own Comp Metabolic Wlg044 GLOB 2.9 g/dL 03/02/2017 Unkn own Comp Metabolic Mgv853 A/G Ratio 1.4 Ratio 03/02/2017 Unkn own Comp Metabolic Ruc413 Osmo 282 mOsmo 03/02/2017 Unkn own Cbc [...] 03/02/20 17 Unknown Cbc With Differential Ord2 Summers% 8.3 % 03/02/20 17 Unknown Cbc With [...] K/ul 017 Unknown Cbc With Differential Ord2 Summers ABS# 0.8 K/ul 03/02/20 17 Unknown Cbc [...] Fe-%Sat 30.4 % 03/02/2017 Unknown Comp Metabolic Vnq690 NA 140 mEq/L 10/11/2016 Unkn own Comp Metabolic Iwo766 K 4.9 mEq/L 10/11/2016 Unkn own Comp Metabolic Xzx434 CL 100 mEq/L 10/11/2016 Unkn own Comp Metabolic Qmg677 CO2 32.0 mEq/L 10/11/2016 Unk nown Comp Metabolic Ltf225 ANION GAP 13 10/11/2016 Unkn own Comp Metabolic Qsd294 GLUCOSE 95 mg/dL 10/11/2016 Unkn own Comp Metabolic Ppd096 Creat 1.0 mg/dL 10/11/2016 Unkn own Comp Metabolic Yhh938 eGFR 64 ml/min/1.73m2 10/12/19 17 Unknown Comp Metabolic Vkh318 BUN 17 mg/dL 10/11/2016 Unkn own Comp Metabolic Fkr359 B/C Ratio 17.9 Ratio 10/11/2016 Unk nown Comp Metabolic Liq231 CALCIUM 9.5 mg/dL 10/11/2016 Unkn own Comp Metabolic Dyh427 ALK PHOS 65 U/L 10/11/2016 Unkn own Comp Metabolic Cvd585 AST(SGOT) 16 U/L 10/11/2016 Unkn own Comp Metabolic Has500 ALT(SGPT) 16 U/L 10/11/2016 Unkn own Comp Metabolic Qlf560 BILI T 0.6 mg/dL 10/11/2016 Unkn own Comp Metabolic Ojm872 ALBUMIN 3.8 g/dL 10/11/2016 Unkn own Comp Metabolic Aju484 TPRO 6.7 g/dL 10/11/2016 Unkn own Comp Metabolic Sgz987 GLOB 2.9 g/dL 10/11/2016 Unkn own Comp Metabolic Sjt446 A/G Ratio 1.3 Ratio 10/11/2016 Unkn own Comp Metabolic Btl969 Osmo 281 mOsmo 10/11/2016 Unkn own Cbc [...] 10/12/19 17 Unknown Cbc With Differential Ord2 Summers% 8.2 % 10/12/19 17 Unknown Cbc With [...] K/ul 017 Unknown Cbc With Differential Ord2 Summers ABS# 0.7 K/ul 10/12/19 17 Unknown Cbc With Differential Ord2 Eos ABS# 0.2 K/ul 10/12/19 17 Unknown Cbc With Differential Ord2 Baso ABS# 0.0 K/ul 10/12/19 17 Unknown Vitamin D 25 Oh Iil2853 VITAMIN D, 25 HYDROXY 14.10 ng/mL 10/11/2016 Unknown Lipid Ord30 CHOL 169 mg/dL 10/11/2016 Unknown Lipid Ord30 HDL 44.0 mg/dl 10/11/2016 Unknown Lipid Ord30 TRIG 139 mg/dL 10/11/2016 Unknown Lipid Ord30 LDL 97 mg/dL 10/11/2016 Unknown Lipid Ord30 C/HDL 3.8 Ratio 10/11/2016 Unknown %Hba1C Wbb200 % HbA1c 43939-8 5.5 % 10/11/2016 Unknown %Hba1C Yab375 Gluc Ave 111 mg/dL 10/11/2016 Unknown Tsh [...] 01/19/20 16 Unknown Cbc With Differential Ord2 Summers% 7.7 % 01/19/20 16 Unknown Cbc With [...] K/ul 016 Unknown Cbc With Differential Ord2 Summers ABS# 0.7 K/ul 01/19/20 16 Unknown Cbc [...] Ratio 01/19/2016 Unknown Vitamin D 25 Oh Rtf4141 VITAMIN D, 25 HYDROXY 33.57 ng/mL 01/19/2016 Unknown %Hba1C Yep102 % HbA1c 66397-9 5.6 % 01/19/2016 Unknown %Hba1C Uzr659 Gluc Ave 114 mg/dL 01/19/2016 Unknown Comp Metabolic Rch855 NA 136 mEq/L 01/19/2016 Unkn own Comp Metabolic Eiw736 K 4.1 mEq/L 01/19/2016 Unkn own Comp Metabolic Ogs860 CL 100 mEq/L 01/19/2016 Unkn own Comp Metabolic Ftk526 CO2 32.0 mEq/L 01/19/2016 Unk nown Comp Metabolic Cxd795 ANION GAP 8 01/19/2016 Unkn own Comp Metabolic Cuz788 GLUCOSE 96 mg/dL 01/19/2016 Unkn own Comp Metabolic Aop911 Creat 0.9 mg/dL 01/19/2016 Unkn own Comp Metabolic Tru294 eGFR 68 ml/min/1.73m2 01/19/20 16 Unknown Comp Metabolic Ijy391 BUN 19 mg/dL 01/19/2016 Unkn own Comp Metabolic Llx019 B/C Ratio 20.9 Ratio 01/19/2016 Unk nown Comp Metabolic Zax621 CALCIUM 9.4 mg/dL 01/19/2016 Unkn own Comp Metabolic Gzz197 ALK PHOS 59 U/L 01/19/2016 Unkn own Comp Metabolic Eqo171 AST(SGOT) 15 U/L 01/19/2016 Unkn own Comp Metabolic Mxf127 ALT(SGPT) 15 U/L 01/19/2016 Unkn own Comp Metabolic Ukd288 BILI T 0.6 mg/dL 01/19/2016 Unkn own Comp Metabolic Rzp555 ALBUMIN 3.9 g/dL 01/19/2016 Unkn own Comp Metabolic Pvq702 TPRO 6.8 g/dL 01/19/2016 Unkn own Comp Metabolic Idg638 GLOB 2.9 g/dL 01/19/2016 Unkn own Comp Metabolic Zal128 A/G Ratio 1.4 Ratio 01/19/2016 Unkn own Comp Metabolic Fof281 Osmo 274 mOsmo 01/19/2016 Unkn own Tsh Ord6 hTSH II 1.47 uIU/mL 01/19/2016 Unknown %Hba1C Dbl594 % HbA1c 82406-4 5.9 % 05/30/2015 Unknown %Hba1C Csm159 Gluc Ave 123 mg/dL 05/30/2015 Unknown Tsh Ord6 hTSH II 1.51 uIU/mL 02/27/2015 Unknown Comp Metabolic Ult813 NA 134 mEq/L 02/27/2015 Unkn own Comp Metabolic Nye440 K 4.3 mEq/L 02/27/2015 Unkn own Comp Metabolic Uwd893 CL 102 mEq/L 02/27/2015 Unkn own Comp Metabolic Yku374 CO2 24.0 mEq/L 02/27/2015 Unk nown Comp Metabolic Nrw090 ANION GAP 12 02/27/2015 Unkn own Comp Metabolic Hiu987 GLUCOSE 131 mg/dL 02/27/2015 Unkn own Comp Metabolic Swz146 Creat 1.1 mg/dL 02/27/2015 Unkn own Comp Metabolic Lef439 eGFR 57 ml/min/1.73m2 02/28/20 15 Unknown Comp Metabolic Zew643 BUN 17 mg/dL 02/27/2015 Unkn own Comp Metabolic Fqu679 B/C Ratio 16.2 Ratio 02/27/2015 Unk nown Comp Metabolic Qbk142 CALCIUM 9.4 mg/dL 02/27/2015 Unkn own Comp Metabolic Btr275 ALK PHOS 73 U/L 02/27/2015 Unkn own Comp Metabolic Eap871 AST(SGOT) 18 U/L 02/27/2015 Unkn own Comp Metabolic Tna201 ALT(SGPT) 17 U/L 02/27/2015 Unkn own Comp Metabolic Ige139 BILI T 0.8 mg/dL 02/27/2015 Unkn own Comp Metabolic Qpj094 ALBUMIN 3.9 g/dL 02/27/2015 Unkn own Comp Metabolic Fzq968 TPRO 7.2 g/dL 02/27/2015 Unkn own Comp Metabolic Hbs909 GLOB 3.3 g/dL 02/27/2015 Unkn own Comp Metabolic Xsr149 A/G Ratio 1.2 Ratio 02/27/2015 Unkn own Comp Metabolic Tyv226 Osmo 272 mOsmo 02/27/2015 Unkn own Lipid Ord30 CHOL 197 mg/dL 02/27/2015 Unknown Lipid Ord30 HDL 41.0 mg/dl 02/27/2015 Unknown Lipid Ord30 TRIG 137 mg/dL 02/27/2015 Unknown Lipid Ord30 LDL 129 mg/dL 02/27/2015 Unknown Lipid Ord30 C/HDL 4.8 Ratio 02/27/2015 Unknown Free T4 Vbb132 FREE T4 1.10 ng/dL 02/27/2015 Unknown Vitamin D 25 Oh Ydp3368 VITAMIN D, 25 HYDROXY 10.95 ng/mL 02/27/2015 [...] RDW 14.9 % 02/27/20 15 Unknown %Hba1C Cnu730 % HbA1c 31107-0 7.3 % 02/26/2015 Unknown %Hba1C Oja323 Gluc Ave 163 mg/dL 02/26/2015 Unknown Procedures Procedure Codes Date ROCEPHIN, PER 250 MG CPT-4: J0696 05/06/2017 TRIAMCINOLONE ACET INJ NOS 10 mg CPT-4: J3301 018 Vital Signs Date Vital 08/05/2020 Blood Pressure 1: 142/78 Code: 8480-6 BMI: 50.9 Code: 19929-5 Heart Rate 1: 87 bpm Height: 5'8" Code: 8302-2 SpO2: 98% Temperature: 3 6.2 (C) / 97.1 (F) Weight: 335 lbs Code: 69311-1 03/24/2020 Blood Pressure 1: 132/74 Code: 8480-6 BMI: 51.7 Code: 16583-7 Heart Rate 1: 90 bpm Height: 5'8" Code: 8302-2 Respiratory Rate: 15 bpm SpO2: 95% Temperature: 36.4 (C) / 97.5 (F) Weight: 340 lbs Code: 48429-7 12/26/2018 BMI: 52.6 Code: 46241-2 Heart Rate 1: 80 bpm Hei ght: 5'8" Code: 8302-2 Respiratory Rate: 16 bpm SpO2: 98% Weight: 346 lbs Code: 92021-8 05/25/2018 Blood Pressure 1: 122/68 Code: 8480-6 BMI: 52.6 Code: 97205-8 Heart Rate 1: 69 bpm Height: 5'8" Code: 8302-2 SpO2: 96% Weight: 346 lb s Code: 14306-9 05/06/2017 Blood Pressure 1: 134/76 Code: 8480-6 Heart Rate 1: 84 bpm Height: 5'8" Code: 8302-2 SpO2: 96% Temperature: 36.6 (C) / 97.8 (F) Weight: Code: 89584-1 03/02/2017 Blood Pressure 1: 132/72 Code: 8480-6 BMI: 51.2 Code: 42101-1 Heart Rate 1: 67 bpm Height: 5'8" Code: 8302-2 SpO2: 98% Weight: 337 lb s Code: 70919-2 10/06/2016 Blood Pressure 1: 128/76 Code: 8480-6 BMI: 50.9 Code: 43964-7 Heart Rate 1: 70 bpm Height: 5'8" Code: 8302-2 SpO2: 98% Weight: 335 lb s Code: 25318-9 01/15/2016 Blood Pressure 1: 130/72 Code: 8480-6 BMI: 49.3 Code: 20369-6 Heart Rate 1: 68 bpm Height: 5'8" Code: 8302-2 SpO2: 98% Weight: 324 lb s Code: 31709-6 05/29/2015 Blood Pressure 1: 136/80 Code: 8480-6 BMI: 52.2 Code: 26611-9 Heart Rate 1: 69 bpm Height: 5'8" Code: 8302-2 SpO2: 97% Weight: 343 lb s Code: 87134-8 03/31/2015 Blood Pressure 1: 136/78 Code: 8480-6 BMI: 53.4 Code: 00643-5 Heart Rate 1: 69 bpm Height: 5'8" Code: 8302-2 SpO2: 96% Weight: 351 lb s Code: 74445-8 02/26/2015 Blood Pressure 1: 128/80 Code: 8480-6 BMI: 56.3 Code: 04668-8 Heart Rate 1: 79 bpm Height: 5'8" Code: 8302-2 SpO2: 96% Weight: 370 lb s Code: 53315-2 Functional Status No Functional Status data Reason For Visit Reason For Visit Effective Dates Notes rash 08/05/2020 diabetes mellitus 03/24/2020 diabetes mellitus 12/26/2018 diabetes mellitus 05/25/2018 fever 05/06/2017 diabetes mellitus 03/02/2017 diabetes mellitus 10/06/2016 diabetes mellitus 01/15/2016 fatigue 05/29/2015 fatigue 03/31/2015 fatigue 02/26/2015 Encounters Encounter Performer Location Codes Date () [id number] EST. PATIENT, LEVEL III Diagnosis: Superficial phlebitis and thrombophlebitis of left leg[ICD10: I80.02] Deisy Garcia MD, [facility] CPT-4: 22456 08/06/19 ([id number]) PREV VISIT EST AGE 40-64 Diagnosis: Encounter for general adult medical examination with abnormal findings[ICD10: Z00.01] Divya Garcia MD, [facility] CPT-4: 99776 03/24/2020 ([id number]) 84039 EST. PATIENT, LEVEL IV Diagnosis: Type 2 diabetes mellitus without complications[ICD10: E11.9] Diagnosis: Mastodynia[ICD10: N64.4] Diagnosis: Pain in left knee[ICD10: M25.562] Diagnosis: Bilateral primary osteoarthritis of knee[ICD10: M17.0] Divya Garcia MD, [facility] CPT-4: 94506 12/26/2018 ([id number]) PREV VISIT EST AGE 40-64 Diagnosis: Encounter for general adult medical examination with abnormal findings[ICD10: Z00.01] Divya Garcia MD, [facility] CPT-4: 72306 05/25/2018 [id number] EST. PATIENT, LEVEL III Diagnosis: Other malaise[ICD10: R53.81] Diagnosis: Fever, unspecified[ICD10: R50.9] Diagnosis: Acute laryngopharyngitis[ICD10: J06.0] Norma Terrell MD, [facility] CPT-4: 94994 05/06/2017 ([id number] EST. PATIENT, LEVEL IV Diagnosis: Type 2 diabetes mellitus without complications[ICD10: E11.9] Diagnosis: Nontoxic multinodular goiter[ICD10: E04.2] Diagnosis: Morbid (severe) obesity due to excess calories[ICD10: E66.01] Diagnosis: Nonscarring hair loss, unspecified[ICD10: L65.9] Divya Garcia MD, [facility] CPT-4: 66996 03/02/2017 ([id number]) PREV VISIT EST AGE 40-64 Diagnosis: Encounter for general adult medical examination with abnormal findings[ICD10: Z00.01] Divya Garcia MD, [facility] CPT-4: 00751 10/06/2016 ([id number]) 82787 EST. PATIENT, LEVEL IV Diagnosis: Type 2 diabetes mellitus without complications[ICD10: E11.9] Diagnosis: Morbid (severe) obesity due to excess calories[ICD10: E66.01] Diagnosis: Vitamin D deficiency, unspecified[ICD10: E55.9] Diagnosis: Nontoxic multinodular goiter[ICD10: E04.2] Divya Garcia MD, [facility] CPT-4: 14012 01/15/2016 ([id number]) [id number] EST. PATIENT, LEVEL III Diagnosis: Type 2 diabetes mellitus without complications[ICD10: E11.9] Divya Garcia MD, [facility] CPT-4: 35105 05/29/2015 ([id number]) [id number] EST. PATIENT, LEVEL III Diagnosis: Type 2 diabetes mellitus without complications[ICD10: E11.9] Diagnosis: Vitamin D deficiency, unspecified[ICD10: E55.9] Divya Garcia MD, [facility] CPT-4: 15410 03/31/2015 ([id number]) PREV VISIT NEW AGE 40-64 Diagnosis: Encounter for general adult medical examination with abnormal findings[ICD10: Z00.01] Divya Garcia MD, [facility] CPT-4: 72357 02/26/2015 Plan of Care Planned Activity Notes Codes Status Date Appointment: Divya Garcia WPtel: [phone] [facility] [place] (15 min) Moderate 12/22/2020 Appointment: JoseDivya WPtel: [phone] [facility] [place] (15 min) Moderate 11/06/2020 Appointment: Divya Garcia WPtel: [phone] [facility] [place] (15 min) Moderate 10/15/2020 Appointment: Divya Garcia WPtel: [phone] [facility] [place] (15 min) Moderate 09/15/2020 Visit Plan: [...] going today. 08/05/2020 Appointment: Deisy Lowe WPtel: [phone] [phone] [place] (30 min) Complex 08/05/2020 Patient Education: [...] augment sleep. 03/24/2020 Appointment: Divya Garcia WPtel: [phone] [facility] [place] (15 min) Moderate 03/24/2020 Patient Education: Patient Medication Summary Completed 03/24/2020 Patient Education: Diabetes Completed 03/24/2020 Appointment: Divya Garcia WPtel: [phone] [facility] [place] [place]) Moderate 03/06/2020 Appointment: [phone] [facility] [place] ([place]) Moderate 02/06/2019 Visit [...] the pharmacy. 12/26/2018 Appointment: [phone] [facility] [place] ([place]) Moderate 12/26/2018 Patient Education: Patient Medication Summary Completed 12/26/2018 Patient Education: Diabetes Completed 12/26/2018 Care Plan: Unilateral DIAGNOSTICMAMMOGRAPHYDIGITAL LOINC : 81737-1 Pending 12/26/2018 Patient Education: Patient Medication Summary Completed 12/14/2018 Appointment: [phone] [facility] [place] ([place]) Moderate 12/13/2018 Visit Plan: [...] Free T4 05/25/2018 Appointment: Divya Garcia WPtel: [phone] [facility] (15 min) Moderate 05/25/2018 Patient Education: Patient Medication Summary Completed 05/25/2018 Patient Education: Obesity Completed 0 05/25/2018 Appointment: Divya Garcia WPtel: [phone] [facility] [place] (15 min) Moderate 07/11/2017 Appointment: Divya Garcia WPtel: [phone] [facility] (15 min) Moderate 06/28/2017 Visit Plan: URI [...] allergy spray. 05/06/2017 Appointment: Norma Isbell WPtel: [phone] [facility] (15 min) Moderate 05/06/2017 Patient Education: Patient [...] ferritin, ESR 03/02/2017 Appointment: [facility]el[phone] [facility] [place] ([place]) Moderate 03/02/2017 Patient Education: Patient Medication Summary Completed 03/02/2017 Patient Education: Obesity Completed 1 05/02/2016 Care Plan: Iron Pending 03/02/2017 Appointment: Divya Garcia WPtel: [phone] [facility] (15 min) Moderate 01/31/2017 Visit Plan: Well [...] the patient. 10/06/2016 Appointment: Divya Garcia WPtel: [phone] [facility] [place] (15 min) Moderate 10/06/2016 Patient Education: Patient Medication Summary Completed 10/06/2016 Patient Education: Obesity Completed 0 10/06/2016 Appointment: Divya Garcia WPtel: [phone] [facility] [place] (15 min) Moderate 09/15/2016 App[facility]ment: [facility]el[phone] [place] ([place]) Moderate 08/16/2016 Appointment: Divya Garcia WPtel: [phone] [facility] [place] (15 min) Moderate 07/15/2016 Patient Education: Patient Medication Summary Completed 01/27/2016 Care Plan: SCREENINGMAMMOGRAPHYDIGITAL L OINC : 27509-4 Pending 01/27/2016 Visit Plan: Diabetes Mellitus - [...] -check labs 01/15/2016 Appointment: Divya Garcia WPtel: [address] [place], [place] [id number] [place] (15 min) Moderate 01/15/2016 Patient Education: Patient Medication Summary Completed 01/15/2016 Patient Education: Obesity Completed 0 01/15/2016 Appointment: Divya Garcia WPtel: [address] [place], [place] [id number] [place] (15 min) Moderate 08/26/2015 Visit Plan: [...] or belviq 05/29/2015 Appointment: Divya Garcia WPtel: [facility] (15 min) Moderate 05/29/2015 Patient Education: Patient [...] less controlled. 03/31/2015 Appointment: Divya Garcia WPtel: [phone] [facility] (15 min) Moderate 03/31/2015 Patient Education: Patient [...] glucose levels. 02/26/2015 Appointment: Divya Garcia WPtel: [facility] [place] (S) New Patient 02/26/2015 Patient Education: [...]
--- OUTSIDE RECORDS SUMMARY | 2020-12-30 12:39 | XMS REPORT | CCD ---
Author Author Cecilia Garcia Organization Divya Garcia MD, 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 Never smoker 02/26/[address]: 643907412 Never drinks alcohol 2014 Allergies, Adverse Reactions, [...] Fill Instructions Cipro 500 mg tablet RxNorm: 263966 1 Tablet(s) Oral two times a day 12/24/2020 12/24/2020 Inactive Flagyl 500 mg tablet RxNorm: 071651 1 Tablet(s) Oral three time s a day 12/24/2020 12/30/2020 Active Flagyl 500 mg tablet RxNorm: 550432 1 Tablet(s) Oral three time s a day 12/24/2020 12/24/2020 Inactive bupropion HCl 75 mg tablet RxNorm: 787768 1 Tablet(s) Oral two times a day 12/24/2020 12/24/2020 Inactive bupropion HCl 75 mg tablet RxNorm: 312860 1 Tablet(s) Oral two times a day 12/24/2020 01/22/2021 Active Cipro 500 mg tablet RxNorm: 568776 1 Tablet(s) Oral two times a day 12/24/2020 12/30/2020 Active fluconazole 150 mg tablet RxNorm: 558481 Take 1 Tablet(s) Oral every other day 12/22/2020 12/27/2020 Active nystatin 100,000 unit/mL oral suspension RxNorm: 801538 Take 5 Milliliter(s) Oral four times a day 12/22/2020 12/31/2020 Active Diflucan 150 mg tablet RxNorm: 472527 Take 1 Tablet(s) Oral jeffy ry day 12/04/2020 12/04/2020 Inactive Diflucan 150 mg tablet RxNorm: 044718 Take 1 Tablet(s) Oral jeffy ry day 12/04/2020 12/10/2020 Inactive cephalexin 500 mg tablet RxNorm: 938797 1 Tablet(s) Oral three times a day 08/05/2020 08/12/2020 Inactive metformin 500 mg tablet RxNorm: 337197 TKAE 1/2 TABLET BY MOUTH TWICE DAILY 05/12/2020 02/05/2021 Active Vitamin D2 1,250 mcg (50,000 unit) capsule RxNorm: 3806861 1 Capsule(s) Oral once a week 04/15/2020 07/14/2020 Inactive tramadol 50 mg tablet RxNorm: 163953 1 Tablet(s) Oral t hree times a day as needed arthritis pain 03/24/2020 07/21/2020 Inactive metformin 500 mg tablet RxNorm: 006188 TKAE 1/2 TABLET BY MOUTH TWICE DAILY 02/11/2020 05/10/2020 Inactive metformin 500 mg tablet RxNorm: 645478 TABLET(S) TAKE 1 /2 TABLET BY MOUTH TWICE DAILY 07/12/2019 02/10/2020 Inactive metformin 500 mg tablet RxNorm: 802108 TABLET(S) TAKE 1 /2 TABLET BY MOUTH TWICE DAILY 06/19/2019 07/11/2019 Inactive Keflex 500 mg capsule RxNorm: 730090 1 Capsule(s) Oral three ti mes a day 05/03/2019 05/02/2019 Inactive cephalexin 500 mg tablet RxNorm: 320627 1 Tablet(s) Oral three times a day 05/03/2019 05/10/2019 Inactive interactions reviewe d, fill the medication as written please Bactrim DS 800 mg-160 mg tablet RxNorm: 035938 1 Tablet(s) Oral two times a day 03/23/2019 03/22/2019 Inactive Bactrim DS 800 mg-160 mg tablet RxNorm: 874469 1 Tablet(s) Oral two times a day 03/23/2019 04/01/2019 Inactive Vitamin D3 5,000 unit tablet RxNorm: 285128 1 Tablet(s) PO daily No Stop Date Active Voltaren 1 % topical gel RxNorm: 755181 2 Gram(s) TOP QID 12/26/2018 04/24/2019 Inactive metformin 500 mg tablet RxNorm: 725666 TABLET(S) TAKE 1 /2 TABLET BY MOUTH TWICE DAILY 10/30/2018 06/18/2019 Inactive metformin 500 mg tablet RxNorm: 735649 TABLET(S) TAKE 1 /2 TABLET BY MOUTH TWICE DAILY 05/18/2018 10/29/2018 Inactive metformin 500 mg tablet RxNorm: 561031 Tablet(s) TAKE 1 /2 TABLET BY MOUTH TWICE DAILY 10/13/2017 04/10/2018 Inactive metformin 500 mg tablet RxNorm: 844540 TAKE 1/2 TABLET BY MOUTH TWICE DAILY 09/02/2017 10/12/2017 Inactive Phenergan with Codeine Syrup RxNorm: 5-10 Milliliter(s) PO QID as needed 05/06/2017 10/29/2018 Inactive Kenalog 40 mg/mL suspension for injection RxNorm: 7219943 1 Mill iliter(s) Inj 05/06/2017 05/06/2017 Inactive Tamiflu 75 mg capsule RxNorm: 160770 1 Capsule(s) PO BID 05/06/2017 0 05/10/2017 Inactive prednisone 20 mg tablet RxNorm: 196444 2 Tablet(s) PO daily 018 05/10/2017 Inactive cefdinir 300 mg capsule RxNorm: 335316 1 Capsule(s) PO BID 05/06/19 18 05/15/2017 Inactive Zithromax Z-Xavier 250 mg tablet RxNorm: 103952 1 Tablet(s) PO UD 04/2505/17/2018 Inactive ceftriaxone 500 mg solution for injection RxNorm: 8534742 1 Mill iliter(s) Inj 05/06/2017 05/06/2017 Inactive metformin 500 mg tablet RxNorm: 978292 TAKE 1/2 TABLET BY MOUTH TWICE DAILY 11/29/2016 10/12/2017 Inactive Vitamin D2 50,000 unit capsule RxNorm: 539418 1 Capsule(s) PO QW 04/08/2017 Inactive hydrochlorothiazide 25 mg tablet RxNorm: 418566 1 Table t(s) PO daily as needed edema 10/06/2016 02/02/2017 Inactive potassium chloride ER 10 mEq tablet,extended release RxNorm: 339140 1 Tablet(s) PO daily as needed when taking hctz 10/06/2016 02/02/2017 Inactive metformin 500 mg tablet RxNorm: 444498 1/2 Tablet(s) PO BID 017 10/12/2017 Inactive prednisone 20 mg tablet RxNorm: 100292 2 Tablet(s) PO P RN at onset of exposure to insect bite 10/06/2016 12/25/2018 Inactive tramadol 50 mg tablet RxNorm: 202867 1 Tablet(s) PO TID as needed arthritis pain 10/06/2016 02/02/2017 Inactive metformin 500 mg tablet RxNorm: 059879 1/2 TABLET(S) PO BID 016 10/05/2016 Inactive Vitamin D2 50,000 unit capsule RxNorm: 329850 1 Capsule(s) PO QW 08/26/2015 Inactive Vitamin D3 5,000 unit tablet RxNorm: 368033 1 Tablet(s) PO daily 01/14/2016 Inactive metformin 500 mg tablet RxNorm: 861388 1/2 Tablet(s) PO BID 015 03/02/2015 Inactive Vitamin D2 50,000 unit capsule RxNorm: 786972 1 Capsule(s) PO QW 05/28/2015 Inactive metformin 500 mg tablet RxNorm: 218455 1/2 Tablet(s) PO BID 015 02/25/2016 Inactive Vitamin D2 50,000 unit capsule RxNorm: 405164 1 Capsule(s) PO QW 03/02/2015 Inactive Xiidra 5 % eye drops in a dropperette RxNorm: 9127483 1 ophthalm ic (eye) BID 12/26/2018 Active Vitamin D3 1,000 unit tablet RxNorm: 077315 1 Tablet(s) PO daily 12/25/2018 Inactive Medication Administered Medication Codes Instructions Start Date Status ceftriaxone 500 mg solution for injection RxNorm: 3528419 1Milli liter 05/06/2017 No longer Active Kenalog 40 mg/mL suspension for injection RxNorm: 3368268 1Milli liter 05/06/2017 No longer Active Immunizations Vaccine Codes Date Status Influenza CVX: 135 01/22/2015 Tetanus, Diptheria, Pertussis CVX: 04/25/2012 Tetanus/Diptheria CVX: 04/25/2012 Results Observation Observation Code Item Item Code Result Date S vice Location Comp Metabolic Pzq362 NA 140 mEq/L 04/10/2020 Unkn own Comp Metabolic Ssr895 K 4.4 mEq/L 04/10/2020 Unkn own Comp Metabolic Fsh935 CL 101 mEq/L 04/10/2020 Unkn own Comp Metabolic Cqh522 CO2 31.0 mEq/L 04/10/2020 Unk nown Comp Metabolic Cqe928 ANION GAP 12 04/10/2020 Unkn own Comp Metabolic Yjs012 GLUCOSE 105 mg/dL 04/10/2020 Unkn own Comp Metabolic Qpp922 Creat 0.9 mg/dL 04/10/2020 Unkn own Comp Metabolic Hst996 eGFR 66 ml/min/1.73m2 04/10/20 20 Unknown Comp Metabolic Egq381 BUN 18 mg/dL 04/10/2020 Unkn own Comp Metabolic Jga143 B/C Ratio 19.6 Ratio 04/10/2020 Unk nown Comp Metabolic Cil173 CALCIUM 9.3 mg/dL 04/10/2020 Unkn own Comp Metabolic Ctr131 ALK PHOS 64 U/L 04/10/2020 Unkn own Comp Metabolic Abc457 AST(SGOT) 14 U/L 04/10/2020 Unkn own Comp Metabolic Bac859 ALT(SGPT) 13 U/L 04/10/2020 Unkn own Comp Metabolic Ekk161 BILI T 0.5 mg/dL 04/10/2020 Unkn own Comp Metabolic Kcp223 ALBUMIN 3.8 g/dL 04/10/2020 Unkn own Comp Metabolic Fbt528 TPRO 6.8 g/dL 04/10/2020 Unkn own Comp Metabolic Dot259 GLOB 3.0 g/dL 04/10/2020 Unkn own Comp Metabolic Zrb427 A/G Ratio 1.2 Ratio 04/10/2020 Unkn own Comp Metabolic Dgo182 Osmo 282 mOsmo 04/10/2020 Unkn own Tsh Ord6 TSH (3rd IS) 1.67 uIU/mL 04/10/2020 Unkn own %Hba1C Yem626 % HbA1c 95056-3 6.0 % 04/10/2020 Unknown %Hba1C Ruj093 Gluc Ave 126 mg/dL 04/10/2020 Unknown Cbc [...] pg 04/10/20 Unknown Cbc With Differential Ord2 [place]% 7.3 % 04/10/20 Unknown Cbc With Differential Ord2 MCHC 32.5 pg 04/10/20 Unknown Cbc With Differential Ord2 Eos% 1.6 % 04/10/20 Unknown Cbc With Differential Ord2 PLT 316 K/ul 04/10/20 Unknown Cbc With Differential Ord2 Baso% 0.4 % 04/10/20 Unknown Cbc With Differential Ord2 RDW 14.1 % 04/10/20 Unknown Cbc With Differential Ord2 Neut ABS# 6.28 K/ul 12/17/20 20 Unknown Cbc With Differential Ord2 Lymph ABS# 2.22 K/ul 020 Unknown Cbc With Differential Ord2 [place] ABS# 0.7 K/ul 04/10/20 20 Unknown Cbc With Differential Ord2 Eos ABS# 0.2 K/ul 04/10/20 20 Unknown Cbc With Differential Ord2 Baso ABS# 0.0 K/ul 04/10/20 20 Unknown Lipid Ord30 CHOL 169 mg/dL 04/10/2020 Unknown Lipid Ord30 HDL 40.0 mg/dl 04/10/2020 Unknown Lipid Ord30 TRIG 107 mg/dL 04/10/2020 Unknown Lipid Ord30 LDL 108 mg/dL 04/10/2020 Unknown Lipid Ord30 C/HDL 4.2 Ratio 04/10/2020 Unknown Vitamin D 25 Oh Qds9200 VITAMIN D, 25 HYDROXY 17.87 ng/mL 04/10/2020 Unknown %Hba1C Qol514 % HbA1c 82489-1 6.0 % 12/22/2018 Unknown %Hba1C Hso802 Gluc Ave 126 mg/dL 12/22/2018 Unknown Microalbumin Nsx014 MicroAlb <0.7 mg/dL 05/26/2018 Unkno wn Comp Metabolic Hog007 NA 139 mEq/L 05/26/2018 Unkn own Comp Metabolic Lxy603 K 4.7 mEq/L 05/26/2018 Unkn own Comp Metabolic Mbt200 CL 101 mEq/L 05/26/2018 Unkn own Comp Metabolic Inv674 CO2 32.0 mEq/L 05/26/2018 Unk nown Comp Metabolic Tfh224 ANION GAP 11 05/26/2018 Unkn own Comp Metabolic Wbw199 GLUCOSE 98 mg/dL 05/26/2018 Unkn own Comp Metabolic Mri366 Creat 0.9 mg/dL 05/26/2018 Unkn own Comp Metabolic Rqv008 eGFR 69 ml/min/1.73m2 05/26/19 19 Unknown Comp Metabolic Fjr429 BUN 17 mg/dL 05/26/2018 Unkn own Comp Metabolic Azl451 B/C Ratio 19.1 Ratio 05/26/2018 Unk nown Comp Metabolic Tcu926 CALCIUM 9.3 mg/dL 05/26/2018 Unkn own Comp Metabolic Xrx846 ALK PHOS 61 U/L 05/26/2018 Unkn own Comp Metabolic Gko404 AST(SGOT) 14 U/L 05/26/2018 Unkn own Comp Metabolic Pio397 ALT(SGPT) 14 U/L 05/26/2018 Unkn own Comp Metabolic Ekc860 BILI T 0.7 mg/dL 05/26/2018 Unkn own Comp Metabolic Yhp742 ALBUMIN 3.8 g/dL 05/26/2018 Unkn own Comp Metabolic Kun443 TPRO 6.9 g/dL 05/26/2018 Unkn own Comp Metabolic Oem570 GLOB 3.1 g/dL 05/26/2018 Unkn own Comp Metabolic Gil939 A/G Ratio 1.2 Ratio 05/26/2018 Unkn own Comp Metabolic Grw598 Osmo 279 mOsmo 05/26/2018 Unkn own Lipid [...] 05/26/19 19 Unknown Cbc With Differential Ord2 [place]% 8.5 % 05/26/19 19 Unknown Cbc With [...] K/ul 019 Unknown Cbc With Differential Ord2 [place] ABS# 0.7 K/ul 05/26/19 19 Unknown Cbc With Differential Ord2 Eos ABS# 0.2 K/ul 05/26/19 19 Unknown Cbc With Differential Ord2 Baso ABS# 0.1 K/ul 05/26/19 19 Unknown Tsh Ord6 TSH (3rd IS) 1.58 uIU/mL 05/26/2018 Unkn own %Hba1C Res471 % HbA1c 60168-6 5.8 % 05/26/2018 Unknown %Hba1C Fdn304 Gluc Ave 120 mg/dL 05/26/2018 Unknown C A/B FLU 6841609 Influenza A Scr Negative 05/06/2017 Unk nown C A/B FLU 7863428 Influenza B Scr Negative 05/06/2017 Unk nown C A/B FLU 0194170 Influenza Intrp B AG:PRID:PT:NOSE:NOM:IF See Footnote 05/06/2017 Unknown Free T4 Lkn160 FREE T4 1.03 ng/dL 03/02/2017 Unknown %Hba1C Ocp308 % HbA1c 59007-8 5.4 % 03/02/2017 Unknown %Hba1C Tib577 Gluc Ave 108 mg/dL 03/02/2017 Unknown Comp Metabolic Tfc385 NA 140 mEq/L 03/02/2017 Unkn own Comp Metabolic Dbz673 K 4.4 mEq/L 03/02/2017 Unkn own Comp Metabolic Vup770 CL 101 mEq/L 03/02/2017 Unkn own Comp Metabolic Ojf979 CO2 29.0 mEq/L 03/02/2017 Unk nown Comp Metabolic Bsi798 ANION GAP 14 03/02/2017 Unkn own Comp Metabolic Zmy946 GLUCOSE 94 mg/dL 03/02/2017 Unkn own Comp Metabolic Ljz894 Creat 1.0 mg/dL 03/02/2017 Unkn own Comp Metabolic Snc808 eGFR 63 ml/min/1.73m2 03/02/20 17 Unknown Comp Metabolic Kpc283 BUN 20 mg/dL 03/02/2017 Unkn own Comp Metabolic Iek424 B/C Ratio 20.6 Ratio 03/02/2017 Unk nown Comp Metabolic Gvf587 CALCIUM 9.2 mg/dL 03/02/2017 Unkn own Comp Metabolic Thk274 ALK PHOS 67 U/L 03/02/2017 Unkn own Comp Metabolic Ihu796 AST(SGOT) 17 U/L 03/02/2017 Unkn own Comp Metabolic Emf997 ALT(SGPT) 17 U/L 03/02/2017 Unkn own Comp Metabolic Bgo998 BILI T 0.5 mg/dL 03/02/2017 Unkn own Comp Metabolic Rxw290 ALBUMIN 3.9 g/dL 03/02/2017 Unkn own Comp Metabolic Npi136 TPRO 6.8 g/dL 03/02/2017 Unkn own Comp Metabolic Yuj126 GLOB 2.9 g/dL 03/02/2017 Unkn own Comp Metabolic Nsr858 A/G Ratio 1.4 Ratio 03/02/2017 Unkn own Comp Metabolic Cjw384 Osmo 282 mOsmo 03/02/2017 Unkn own Cbc [...] 03/02/20 17 Unknown Cbc With Differential Ord2 [place]% 8.3 % 03/02/20 17 Unknown Cbc With [...] K/ul 017 Unknown Cbc With Differential Ord2 [place] ABS# 0.8 K/ul 03/02/20 17 Unknown Cbc [...] Fe-%Sat 30.4 % 03/02/2017 Unknown Comp Metabolic Auq948 NA 140 mEq/L 10/11/2016 Unkn own Comp Metabolic Ixz310 K 4.9 mEq/L 10/11/2016 Unkn own Comp Metabolic Oue284 CL 100 mEq/L 10/11/2016 Unkn own Comp Metabolic Jan092 CO2 32.0 mEq/L 10/11/2016 Unk nown Comp Metabolic Uck757 ANION GAP 13 10/11/2016 Unkn own Comp Metabolic Ehs404 GLUCOSE 95 mg/dL 10/11/2016 Unkn own Comp Metabolic Xtm599 Creat 1.0 mg/dL 10/11/2016 Unkn own Comp Metabolic Bym694 eGFR 64 ml/min/1.73m2 10/12/19 17 Unknown Comp Metabolic Qcn654 BUN 17 mg/dL 10/11/2016 Unkn own Comp Metabolic Xud331 B/C Ratio 17.9 Ratio 10/11/2016 Unk nown Comp Metabolic Czf750 CALCIUM 9.5 mg/dL 10/11/2016 Unkn own Comp Metabolic Sww864 ALK PHOS 65 U/L 10/11/2016 Unkn own Comp Metabolic Hcz040 AST(SGOT) 16 U/L 10/11/2016 Unkn own Comp Metabolic Net817 ALT(SGPT) 16 U/L 10/11/2016 Unkn own Comp Metabolic Ktb532 BILI T 0.6 mg/dL 10/11/2016 Unkn own Comp Metabolic Aeh905 ALBUMIN 3.8 g/dL 10/11/2016 Unkn own Comp Metabolic Ulq812 TPRO 6.7 g/dL 10/11/2016 Unkn own Comp Metabolic Xgr237 GLOB 2.9 g/dL 10/11/2016 Unkn own Comp Metabolic Bxn648 A/G Ratio 1.3 Ratio 10/11/2016 Unkn own Comp Metabolic Rlz368 Osmo 281 mOsmo 10/11/2016 Unkn own Cbc [...] 10/12/19 17 Unknown Cbc With Differential Ord2 [place]% 8.2 % 10/12/19 17 Unknown Cbc With [...] K/ul 017 Unknown Cbc With Differential Ord2 [place] ABS# 0.7 K/ul 10/12/19 17 Unknown Cbc With Differential Ord2 Eos ABS# 0.2 K/ul 10/12/19 17 Unknown Cbc With Differential Ord2 Baso ABS# 0.0 K/ul 10/12/19 17 Unknown Vitamin D 25 Oh Ngf8398 VITAMIN D, 25 HYDROXY 14.10 ng/mL 10/11/2016 Unknown Lipid Ord30 CHOL 169 mg/dL 10/11/2016 Unknown Lipid Ord30 HDL 44.0 mg/dl 10/11/2016 Unknown Lipid Ord30 TRIG 139 mg/dL 10/11/2016 Unknown Lipid Ord30 LDL 97 mg/dL 10/11/2016 Unknown Lipid Ord30 C/HDL 3.8 Ratio 10/11/2016 Unknown %Hba1C Kvb201 % HbA1c 02002-0 5.5 % 10/11/2016 Unknown %Hba1C Fnb379 Gluc Ave 111 mg/dL 10/11/2016 Unknown Tsh [...] 01/19/20 16 Unknown Cbc With Differential Ord2 [place]% 7.7 % 01/19/20 16 Unknown Cbc With [...] K/ul 016 Unknown Cbc With Differential Ord2 [place] ABS# 0.7 K/ul 01/19/20 16 Unknown Cbc [...] Ratio 01/19/2016 Unknown Vitamin D 25 Oh Dcx8449 VITAMIN D, 25 HYDROXY 33.57 ng/mL 01/19/2016 Unknown %Hba1C Lxd009 % HbA1c 42773-9 5.6 % 01/19/2016 Unknown %Hba1C Kyl225 Gluc Ave 114 mg/dL 01/19/2016 Unknown Comp Metabolic Mhr951 NA 136 mEq/L 01/19/2016 Unkn own Comp Metabolic Kba214 K 4.1 mEq/L 01/19/2016 Unkn own Comp Metabolic Fmb079 CL 100 mEq/L 01/19/2016 Unkn own Comp Metabolic Mod848 CO2 32.0 mEq/L 01/19/2016 Unk nown Comp Metabolic Lfb357 ANION GAP 8 01/19/2016 Unkn own Comp Metabolic Gfg317 GLUCOSE 96 mg/dL 01/19/2016 Unkn own Comp Metabolic Enw138 Creat 0.9 mg/dL 01/19/2016 Unkn own Comp Metabolic Lqu352 eGFR 68 ml/min/1.73m2 01/19/20 16 Unknown Comp Metabolic Vks313 BUN 19 mg/dL 01/19/2016 Unkn own Comp Metabolic Sdj435 B/C Ratio 20.9 Ratio 01/19/2016 Unk nown Comp Metabolic Gwn814 CALCIUM 9.4 mg/dL 01/19/2016 Unkn own Comp Metabolic Fsx970 ALK PHOS 59 U/L 01/19/2016 Unkn own Comp Metabolic Jbl246 AST(SGOT) 15 U/L 01/19/2016 Unkn own Comp Metabolic Wkk274 ALT(SGPT) 15 U/L 01/19/2016 Unkn own Comp Metabolic Zzi695 BILI T 0.6 mg/dL 01/19/2016 Unkn own Comp Metabolic Wmn140 ALBUMIN 3.9 g/dL 01/19/2016 Unkn own Comp Metabolic Gaq688 TPRO 6.8 g/dL 01/19/2016 Unkn own Comp Metabolic Rii676 GLOB 2.9 g/dL 01/19/2016 Unkn own Comp Metabolic Wly025 A/G Ratio 1.4 Ratio 01/19/2016 Unkn own Comp Metabolic Jqs649 Osmo 274 mOsmo 01/19/2016 Unkn own Tsh Ord6 hTSH II 1.47 uIU/mL 01/19/2016 Unknown %Hba1C Oki080 % HbA1c 97670-6 5.9 % 05/30/2015 Unknown %Hba1C Wrs426 Gluc Ave 123 mg/dL 05/30/2015 Unknown Tsh Ord6 hTSH II 1.51 uIU/mL 02/27/2015 Unknown Comp Metabolic Ogo717 NA 134 mEq/L 02/27/2015 Unkn own Comp Metabolic Sqa421 K 4.3 mEq/L 02/27/2015 Unkn own Comp Metabolic Nrb657 CL 102 mEq/L 02/27/2015 Unkn own Comp Metabolic Ejj733 CO2 24.0 mEq/L 02/27/2015 Unk nown Comp Metabolic Ytd567 ANION GAP 12 02/27/2015 Unkn own Comp Metabolic Mru626 GLUCOSE 131 mg/dL 02/27/2015 Unkn own Comp Metabolic Vhf828 Creat 1.1 mg/dL 02/27/2015 Unkn own Comp Metabolic Nct478 eGFR 57 ml/min/1.73m2 02/28/20 15 Unknown Comp Metabolic Eqm613 BUN 17 mg/dL 02/27/2015 Unkn own Comp Metabolic Arz476 B/C Ratio 16.2 Ratio 02/27/2015 Unk nown Comp Metabolic Oai640 CALCIUM 9.4 mg/dL 02/27/2015 Unkn own Comp Metabolic Stt878 ALK PHOS 73 U/L 02/27/2015 Unkn own Comp Metabolic Rnz436 AST(SGOT) 18 U/L 02/27/2015 Unkn own Comp Metabolic Drd586 ALT(SGPT) 17 U/L 02/27/2015 Unkn own Comp Metabolic Lqs547 BILI T 0.8 mg/dL 02/27/2015 Unkn own Comp Metabolic Huc748 ALBUMIN 3.9 g/dL 02/27/2015 Unkn own Comp Metabolic Hia369 TPRO 7.2 g/dL 02/27/2015 Unkn own Comp Metabolic Jzd041 GLOB 3.3 g/dL 02/27/2015 Unkn own Comp Metabolic Rbx591 A/G Ratio 1.2 Ratio 02/27/2015 Unkn own Comp Metabolic Rfm138 Osmo 272 mOsmo 02/27/2015 Unkn own Lipid Ord30 CHOL 197 mg/dL 02/27/2015 Unknown Lipid Ord30 HDL 41.0 mg/dl 02/27/2015 Unknown Lipid Ord30 TRIG 137 mg/dL 02/27/2015 Unknown Lipid Ord30 LDL 129 mg/dL 02/27/2015 Unknown Lipid Ord30 C/HDL 4.8 Ratio 02/27/2015 Unknown Free T4 Nql076 FREE T4 1.10 ng/dL 02/27/2015 Unknown Vitamin D 25 Oh Prj7216 VITAMIN D, 25 HYDROXY 10.95 ng/mL 02/27/2015 [...] RDW 14.9 % 02/27/20 15 Unknown %Hba1C Mst087 % HbA1c 63483-1 7.3 % 02/26/2015 Unknown %Hba1C Hdk867 Gluc Ave 163 mg/dL 02/26/2015 Unknown Procedures Procedure Codes Date ROCEPHIN, PER 250 MG CPT-4: J0696 05/06/2017 TRIAMCINOLONE ACET INJ NOS 10 mg CPT-4: J3301 018 Vital Signs Date Vital 08/05/2020 Blood Pressure 1: 142/78 Code: 8480-6 BMI: 50.9 Code: 69978-4 Heart Rate 1: 87 bpm Height: 5'8" Code: 8302-2 SpO2: 98% Temperature: 3 6.2 (C) / 97.1 (F) Weight: 335 lbs Code: 12128-1 03/24/2020 Blood Pressure 1: 132/74 Code: 8480-6 BMI: 51.7 Code: 79870-2 Heart Rate 1: 90 bpm Height: 5'8" Code: 8302-2 Respiratory Rate: 15 bpm SpO2: 95% Temperature: 36.4 (C) / 97.5 (F) Weight: 340 lbs Code: 42323-7 12/26/2018 BMI: 52.6 Code: 44716-4 Heart Rate 1: 80 bpm Hei ght: 5'8" Code: 8302-2 Respiratory Rate: 16 bpm SpO2: 98% Weight: 346 lbs Code: 64632-5 05/25/2018 Blood Pressure 1: 122/68 Code: 8480-6 BMI: 52.6 Code: 78513-9 Heart Rate 1: 69 bpm Height: 5'8" Code: 8302-2 SpO2: 96% Weight: 346 lb s Code: 81558-2 05/06/2017 Blood Pressure 1: 134/76 Code: 8480-6 Heart Rate 1: 84 bpm Height: 5'8" Code: 8302-2 SpO2: 96% Temperature: 36.6 (C) / 97.8 (F) Weight: Code: 58461-4 03/02/2017 Blood Pressure 1: 132/72 Code: 8480-6 BMI: 51.2 Code: 72969-9 Heart Rate 1: 67 bpm Height: 5'8" Code: 8302-2 SpO2: 98% Weight: 337 lb s Code: 73116-7 10/06/2016 Blood Pressure 1: 128/76 Code: 8480-6 BMI: 50.9 Code: 52649-8 Heart Rate 1: 70 bpm Height: 5'8" Code: 8302-2 SpO2: 98% Weight: 335 lb s Code: 62240-7 01/15/2016 Blood Pressure 1: 130/72 Code: 8480-6 BMI: 49.3 Code: 82964-1 Heart Rate 1: 68 bpm Height: 5'8" Code: 8302-2 SpO2: 98% Weight: 324 lb s Code: 95854-0 05/29/2015 Blood Pressure 1: 136/80 Code: 8480-6 BMI: 52.2 Code: 54000-6 Heart Rate 1: 69 bpm Height: 5'8" Code: 8302-2 SpO2: 97% Weight: 343 lb s Code: 81793-5 03/31/2015 Blood Pressure 1: 136/78 Code: 8480-6 BMI: 53.4 Code: 89008-9 Heart Rate 1: 69 bpm Height: 5'8" Code: 8302-2 SpO2: 96% Weight: 351 lb s Code: 06631-4 02/26/2015 Blood Pressure 1: 128/80 Code: 8480-6 BMI: 56.3 Code: 20880-0 Heart Rate 1: 79 bpm Height: 5'8" Code: 8302-2 SpO2: 96% Weight: 370 lb s Code: 78456-8 Functional Status No Functional Status data Reason For Visit Reason For Visit Effective Dates Notes rash 08/05/2020 diabetes mellitus 03/24/2020 diabetes mellitus 12/26/2018 diabetes mellitus 05/25/2018 fever 05/06/2017 diabetes mellitus 03/02/2017 diabetes mellitus 10/06/2016 diabetes mellitus 01/15/2016 fatigue 05/29/2015 fatigue 03/31/2015 fatigue 02/26/2015 Encounters Encounter Performer Location Codes Date () 75104 EST. PATIENT, LEVEL III Diagnosis: Superficial phlebitis and thrombophlebitis of left leg[ICD10: I80.02] Deisy Garcia MD, [facility] CPT-4: 81438 08/06/19 ([id number]) PREV VISIT EST AGE 40-64 Diagnosis: Encounter for general adult medical examination with abnormal findings[ICD10: Z00.01] Divya Garcia MD, [facility] CPT-4: 18644 03/24/2020 ([id number]) 30695 EST. PATIENT, LEVEL IV Diagnosis: Type 2 diabetes mellitus without complications[ICD10: E11.9] Diagnosis: Mastodynia[ICD10: N64.4] Diagnosis: Pain in left knee[ICD10: M25.562] Diagnosis: Bilateral primary osteoarthritis of knee[ICD10: M17.0] Divya Garcia MD, [facility] CPT-4: 86170 12/26/2018 ([id number]) PREV VISIT EST AGE 40-64 Diagnosis: Encounter for general adult medical examination with abnormal findings[ICD10: Z00.01] [facility] CPT-4: 70460 05/25/2018 [id number] EST. PATIENT, LEVEL III Diagnosis: Other malaise[ICD10: R53.81] Diagnosis: Fever, unspecified[ICD10: R50.9] Diagnosis: Acute laryngopharyngitis[ICD10: J06.0] [facility] CPT-4: 92792 05/06/2017 ([id number]) 79441 EST. PATIENT, LEVEL IV Diagnosis: Type 2 diabetes mellitus without complications[ICD10: E11.9] Diagnosis: Nontoxic multinodular goiter[ICD10: E04.2] Diagnosis: Morbid (severe) obesity due to excess calories[ICD10: E66.01] Diagnosis: Nonscarring hair loss, unspecified[ICD10: L65.9] [facility] CPT-4: 96901 03/02/2017 ([id number]) PREV VISIT EST AGE 40-64 Diagnosis: Encounter for general adult medical examination with abnormal findings[ICD10: Z00.01] [facility] CPT-4: 81892 10/06/2016 ([id number]) 63905 EST. PATIENT, LEVEL IV Diagnosis: Type 2 diabetes mellitus without complications[ICD10: E11.9] Diagnosis: Morbid (severe) obesity due to excess calories[ICD10: E66.01] Diagnosis: Vitamin D deficiency, unspecified[ICD10: E55.9] Diagnosis: Nontoxic multinodular goiter[ICD10: E04.2] Divya Garcia MD, [facility] CPT-4: 75094 01/15/2016 ([id number]) 63912 EST. PATIENT, LEVEL III Diagnosis: Type 2 diabetes mellitus without complications[ICD10: E11.9] [facility] CPT-4: 55473 05/29/2015 ([id number] 10085 EST. PATIENT, LEVEL III Diagnosis: Type 2 diabetes mellitus without complications[ICD10: E11.9] Diagnosis: Vitamin D deficiency, unspecified[ICD10: E55.9] [facility] CPT-4: 98189 03/31/2015 ([id number]) PREV VISIT NEW AGE 40-64 Diagnosis: Encounter for general adult medical examination with abnormal findings[ICD10: Z00.01] [facility] CPT-4: 18034 02/26/2015 Plan of Care Planned Activity Notes Codes Status Date Appointment: Divya Garcia WPtel: [address] [place], [place] [id number] [place] (15 min) Moderate 12/22/2020 Appointment: Divya Garcia WPtel: [address] [place], [place] [id number] [place] (15 min) Moderate 11/06/2020 Appointment: Divya Garcia WPtel: [address] [place], [place] [phone] [place] (15 min) Moderate 10/15/2020 Appointment: Divya Garcia WPtel: [address] [place], [place] [phone] [place] (15 min) Moderate 09/15/2020 Visit Plan: [...] today. 08/05/2020 Appointment: Deisy Lowe WPtel: [phone] [phone] [place] (30 min) Complex 08/05/2020 Patient Education: [...] sleep. 03/24/2020 [phone] [id number] [place] ([facility] min) Moderate 03/24/2020 Patient Education: Patient Medication Summary Completed 03/24/2020 Patient Education: Diabetes Completed 03/24/2020 App[facility]ment: [facility] [phone] [id number] [place] ([facility] min) Moderate 03/06/2020 App[facility]ment: [phone] [id number] [place] (15 min) Moderate 02/06/2019 Visit [...] the pharmacy. 12/26/2018 Appointment: [facility] [phone] [id number] [place] (15 min) Moderate 12/26/2018 Patient Education: Patient Medication Summary Completed 12/26/2018 Patient Education: Diabetes Completed 12/26/2018 Care Plan: Unilateral DIAGNOSTICMAMMOGRAPHYDIGITAL LOINC : 03327-8 Pending 12/26/2018 Patient Education: Patient Medication Summary Completed 12/14/2018 Appointment: Divya Garcia WPtel: [phone] [facility] [place] (15 min) Moderate 12/13/2018 Visit Plan: [...] Free T4 05/25/2018 App[facility]ment[phone] [place] (15 min) Moderate 05/25/2018 Patient Education: Patient Medication Summary Completed 05/25/2018 Patient Education: Obesity Completed 0 05/25/2018 Appointment: [facility]el: [phone] [facility] [place] (15 min) Moderate 07/11/2017 Appointment: [phone] [place] (15 min) Moderate 06/28/2017 Visit [...] allergy spray. 05/06/2017 Appointment: Norma Isbell WPtel: [address] [place], [place] [phone] (15 min) Moderate 05/06/2017 Patient [...] ferritin, ESR 03/02/2017 Appointment: Divya Garcia WPtel: [facility] (15 min) Moderate 03/02/2017 Patient Education: Patient Medication Summary Completed 03/02/2017 Patient Education: Obesity Completed 1 05/02/2016 Care Plan: Iron Pending 03/02/2017 Appointment: Divya Garcia WPtel: [address] [place], [place] [phone] (15 min) Moderate 01/31/2017 Visit Plan: Well [...] patient. 10/06/2016 Appointment: Divya Garcia WPtel: [phone] [facility] (15 min) Moderate 10/06/2016 Patient Education: Patient Medication Summary Completed 10/06/2016 Patient Education: Obesity Completed 0 10/06/2016 App[facility]ment: [phone] [facility] (15 min) Moderate 09/15/2016 Appointment: Divya Garcia WPtel: [phone] [facility] (15 min) Moderate 08/16/2016 App[facility]ment: [phone] (15 min) Moderate 07/15/2016 Patient Education: Patient Medication Summary Completed 01/27/2016 Care Plan: SCREENINGMAMMOGRAPHYDIGITAL L OINC : 66796-8 Pending 01/27/2016 Visit Plan: Diabetes Mellitus - [...] labs 01/15/2016 Appointment: Divya Garcia WPtel: [phone] [facility] [place] (15 min) Moderate 01/15/2016 Patient Education: Patient Medication Summary Completed 01/15/2016 Patient Education: Obesity Completed 0 01/15/2016 Appointment: Divya Garcia WPtel: [phone] [facility] [place] (15 min) Moderate 08/26/2015 Visit Plan: [...] belviq 05/29/2015 Appointment: Divya Garcia WPtel: [phone] [facility] [place] (15 min) Moderate 05/29/2015 Patient Education: [...] less controlled. 03/31/2015 Appointment: Divya Garcia WPtel: [phone] [facility] [place] (15 min) Moderate 03/31/2015 Patient Education: [...] glucose levels. 02/26/2015 Appointment: [facility]el[phone] [place] ([place] New Patient 02/26/2015 Patient [...] Diabetes Mellitus - controlled - per r nlisaent FSBS reports. I have recommended for the [...]
--- OUTSIDE RECORDS SUMMARY | 2020-12-30 12:39 | XMS REPORT | CCD ---
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 Never smoker 02/26/[address]: 132496596 Never drinks alcohol 2014 Allergies, Adverse Reactions, [...] Fill Instructions Cipro 500 mg tablet RxNorm: 819756 1 Tablet(s) Oral two times a day 12/24/2020 12/24/2020 Inactive Flagyl 500 mg tablet RxNorm: 424955 1 Tablet(s) Oral three time s a day 12/24/2020 12/30/2020 Active Flagyl 500 mg tablet RxNorm: 544675 1 Tablet(s) Oral three time s a day 12/24/2020 12/24/2020 Inactive Cipro 500 mg tablet RxNorm: 844172 1 Tablet(s) Oral two times a day 12/24/2020 12/30/2020 Active fluconazole 150 mg tablet RxNorm: 610630 Take 1 Tablet(s) Oral every other day 12/22/2020 12/27/2020 Active nystatin 100,000 unit/mL oral suspension RxNorm: 295809 Take 5 Milliliter(s) Oral four times a day 12/22/2020 12/31/2020 Active Diflucan 150 mg tablet RxNorm: 557374 Take 1 Tablet(s) Oral jeffy ry day 12/04/2020 12/04/2020 Inactive Diflucan 150 mg tablet RxNorm: 564746 Take 1 Tablet(s) Oral jeffy ry day 12/04/2020 12/10/2020 Inactive cephalexin 500 mg tablet RxNorm: 376699 1 Tablet(s) Oral three times a day 08/05/2020 08/12/2020 Inactive metformin 500 mg tablet RxNorm: 260376 TKAE 1/2 TABLET BY MOUTH TWICE DAILY 05/12/2020 02/05/2021 Active Vitamin D2 1,250 mcg (50,000 unit) capsule RxNorm: 5328609 1 Capsule(s) Oral once a week 04/15/2020 07/14/2020 Inactive tramadol 50 mg tablet RxNorm: 219802 1 Tablet(s) Oral t hree times a day as needed arthritis pain 03/24/2020 07/21/2020 Inactive metformin 500 mg tablet RxNorm: 943878 TKAE 1/2 TABLET BY MOUTH TWICE DAILY 02/11/2020 05/10/2020 Inactive metformin 500 mg tablet RxNorm: 924283 TABLET(S) TAKE 1 /2 TABLET BY MOUTH TWICE DAILY 07/12/2019 02/10/2020 Inactive metformin 500 mg tablet RxNorm: 699524 TABLET(S) TAKE 1 /2 TABLET BY MOUTH TWICE DAILY 06/19/2019 07/11/2019 Inactive Keflex 500 mg capsule RxNorm: 808862 1 Capsule(s) Oral three ti mes a day 05/03/2019 05/02/2019 Inactive cephalexin 500 mg tablet RxNorm: 171505 1 Tablet(s) Oral three times a day 05/03/2019 05/10/2019 Inactive interactions reviewe d, fill the medication as written please Bactrim DS 800 mg-160 mg tablet RxNorm: 340744 1 Tablet(s) Oral two times a day 03/23/2019 03/22/2019 Inactive Bactrim DS 800 mg-160 mg tablet RxNorm: 111701 1 Tablet(s) Oral two times a day 03/23/2019 04/01/2019 Inactive Vitamin D3 5,000 unit tablet RxNorm: 959115 1 Tablet(s) PO daily No Stop Date Active Voltaren 1 % topical gel RxNorm: 633627 2 Gram(s) TOP QID 12/26/2018 04/24/2019 Inactive metformin 500 mg tablet RxNorm: 391531 TABLET(S) TAKE 1 /2 TABLET BY MOUTH TWICE DAILY 10/30/2018 06/18/2019 Inactive metformin 500 mg tablet RxNorm: 945270 TABLET(S) TAKE 1 /2 TABLET BY MOUTH TWICE DAILY 05/18/2018 10/29/2018 Inactive metformin 500 mg tablet RxNorm: 805835 Tablet(s) TAKE 1 /2 TABLET BY MOUTH TWICE DAILY 10/13/2017 04/10/2018 Inactive metformin 500 mg tablet RxNorm: 858604 TAKE 1/2 TABLET BY MOUTH TWICE DAILY 09/02/2017 10/12/2017 Inactive Phenergan with Codeine Syrup RxNorm: 5-10 Milliliter(s) PO QID as needed 05/06/2017 10/29/2018 Inactive Kenalog 40 mg/mL suspension for injection RxNorm: 3508829 1 Mill iliter(s) Inj 05/06/2017 05/06/2017 Inactive Tamiflu 75 mg capsule RxNorm: 539577 1 Capsule(s) PO BID 05/06/2017 0 05/10/2017 Inactive prednisone 20 mg tablet RxNorm: 121481 2 Tablet(s) PO daily 018 05/10/2017 Inactive cefdinir 300 mg capsule RxNorm: 649894 1 Capsule(s) PO BID 05/06/19 18 05/15/2017 Inactive Zithromax Z-Xavier 250 mg tablet RxNorm: 467233 1 Tablet(s) PO UD 04/2505/17/2018 Inactive ceftriaxone 500 mg solution for injection RxNorm: 0160785 1 Mill iliter(s) Inj 05/06/2017 05/06/2017 Inactive metformin 500 mg tablet RxNorm: 705835 TAKE 1/2 TABLET BY MOUTH TWICE DAILY 11/29/2016 10/12/2017 Inactive Vitamin D2 50,000 unit capsule RxNorm: 270369 1 Capsule(s) PO QW 04/08/2017 Inactive hydrochlorothiazide 25 mg tablet RxNorm: 915991 1 Table t(s) PO daily as needed edema 10/06/2016 02/02/2017 Inactive potassium chloride ER 10 mEq tablet,extended release RxNorm: 486804 1 Tablet(s) PO daily as needed when taking hctz 10/06/2016 02/02/2017 Inactive metformin 500 mg tablet RxNorm: 320830 1/2 Tablet(s) PO BID 017 10/12/2017 Inactive prednisone 20 mg tablet RxNorm: 689072 2 Tablet(s) PO P RN at onset of exposure to insect bite 10/06/2016 12/25/2018 Inactive tramadol 50 mg tablet RxNorm: 078765 1 Tablet(s) PO TID as needed arthritis pain 10/06/2016 02/02/2017 Inactive metformin 500 mg tablet RxNorm: 499668 1/2 TABLET(S) PO BID 016 10/05/2016 Inactive Vitamin D2 50,000 unit capsule RxNorm: 493189 1 Capsule(s) PO QW 08/26/2015 Inactive Vitamin D3 5,000 unit tablet RxNorm: 072579 1 Tablet(s) PO daily 01/14/2016 Inactive metformin 500 mg tablet RxNorm: 381586 1/2 Tablet(s) PO BID 015 03/02/2015 Inactive Vitamin D2 50,000 unit capsule RxNorm: 868198 1 Capsule(s) PO QW 05/28/2015 Inactive metformin 500 mg tablet RxNorm: 183607 1/2 Tablet(s) PO BID 015 02/25/2016 Inactive Vitamin D2 50,000 unit capsule RxNorm: 547896 1 Capsule(s) PO QW 03/02/2015 Inactive Xiidra 5 % eye drops in a dropperette RxNorm: 1083329 1 ophthalm ic (eye) BID 12/26/2018 Active Vitamin D3 1,000 unit tablet RxNorm: 472209 1 Tablet(s) PO daily 12/25/2018 Inactive Medication Administered Medication Codes Instructions Start Date Status ceftriaxone 500 mg solution for injection RxNorm: 4878123 1Milli liter 05/06/2017 No longer Active Kenalog 40 mg/mL suspension for injection RxNorm: 4565466 1Milli liter 05/06/2017 No longer Active Immunizations Vaccine Codes Date Status Influenza CVX: 135 01/22/2015 Tetanus, Diptheria, Pertussis CVX: 04/25/2012 Tetanus/Diptheria CVX: 04/25/2012 Results Observation Observation Code Item Item Code Result Date S ervice Location Comp Metabolic Lib189 NA 140 mEq/L 04/10/2020 Unkn own Comp Metabolic Rho066 K 4.4 mEq/L 04/10/2020 Unkn own Comp Metabolic Egu556 CL 101 mEq/L 04/10/2020 Unkn own Comp Metabolic Ucw075 CO2 31.0 mEq/L 04/10/2020 Unk nown Comp Metabolic Kdq614 ANION GAP 12 04/10/2020 Unkn own Comp Metabolic Dsc115 GLUCOSE 105 mg/dL 04/10/2020 Unkn own Comp Metabolic Jko552 Creat 0.9 mg/dL 04/10/2020 Unkn own Comp Metabolic Ymu172 eGFR 66 ml/min/1.73m2 04/10/20 20 Unknown Comp Metabolic Xiq364 BUN 18 mg/dL 04/10/2020 Unkn own Comp Metabolic Sck405 B/C Ratio 19.6 Ratio 04/10/2020 Unk nown Comp Metabolic Gih499 CALCIUM 9.3 mg/dL 04/10/2020 Unkn own Comp Metabolic Rwe140 ALK PHOS 64 U/L 04/10/2020 Unkn own Comp Metabolic Bdq852 AST(SGOT) 14 U/L 04/10/2020 Unkn own Comp Metabolic Ucb828 ALT(SGPT) 13 U/L 04/10/2020 Unkn own Comp Metabolic Cqu815 BILI T 0.5 mg/dL 04/10/2020 Unkn own Comp Metabolic Hoe417 ALBUMIN 3.8 g/dL 04/10/2020 Unkn own Comp Metabolic Yis996 TPRO 6.8 g/dL 04/10/2020 Unkn own Comp Metabolic Ewx887 GLOB 3.0 g/dL 04/10/2020 Unkn own Comp Metabolic Mdr632 A/G Ratio 1.2 Ratio 04/10/2020 Unkn own Comp Metabolic Vwt612 Osmo 282 mOsmo 04/10/2020 Unkn own Tsh Ord6 TSH (3rd IS) 1.67 uIU/mL 04/10/2020 Unkn own %Hba1C Ldz504 % HbA1c 50529-6 6.0 % 04/10/2020 Unknown %Hba1C Ost026 Gluc Ave 126 mg/dL 04/10/2020 Unknown Cbc [...] pg 04/10/20 Unknown Cbc With Differential Ord2 Petroleum% 7.3 % 04/10/20 Unknown Cbc With Differential Ord2 MCHC 32.5 pg 04/10/20 Unknown Cbc With Differential Ord2 Eos% 1.6 % 04/10/20 Unknown Cbc With Differential Ord2 PLT 316 K/ul 04/10/20 Unknown Cbc With Differential Ord2 Baso% 0.4 % 04/10/20 Unknown Cbc With Differential Ord2 RDW 14.1 % 04/10/20 Unknown Cbc With Differential Ord2 Neut ABS# 6.28 K/ul 04/10/20 20 Unknown Cbc With Differential Ord2 Lymph ABS# 2.22 K/ul 020 Unknown Cbc With Differential Ord2 Petroleum ABS# 0.7 K/ul 04/10/20 Unknown Cbc With [...] Ratio 04/10/2020 Unknown Vitamin D 25 Oh Zgs2821 VITAMIN D, 25 HYDROXY 17.87 ng/mL 04/10/2020 Unknown %Hba1C Bpo257 % HbA1c 11226-3 6.0 % 12/22/2018 Unknown %Hba1C Zpn909 Gluc Ave 126 mg/dL 12/22/2018 Unknown Microalbumin Jxf714 MicroAlb <0.7 mg/dL 05/26/2018 Unkno wn Comp Metabolic Vje152 NA 139 mEq/L 05/26/2018 Unkn own Comp Metabolic Hez358 K 4.7 mEq/L 05/26/2018 Unkn own Comp Metabolic Qzu341 CL 101 mEq/L 05/26/2018 Unkn own Comp Metabolic Wxj290 CO2 32.0 mEq/L 05/26/2018 Unk nown Comp Metabolic Vvy268 ANION GAP 11 05/26/2018 Unkn own Comp Metabolic Jys607 GLUCOSE 98 mg/dL 05/26/2018 Unkn own Comp Metabolic Law654 Creat 0.9 mg/dL 05/26/2018 Unkn own Comp Metabolic Vlf380 eGFR 69 ml/min/1.73m2 05/26/19 19 Unknown Comp Metabolic Ppv601 BUN 17 mg/dL 05/26/2018 Unkn own Comp Metabolic Oug476 B/C Ratio 19.1 Ratio 05/26/2018 Unk nown Comp Metabolic Mfp845 CALCIUM 9.3 mg/dL 05/26/2018 Unkn own Comp Metabolic Cda028 ALK PHOS 61 U/L 05/26/2018 Unkn own Comp Metabolic Cip511 AST(SGOT) 14 U/L 05/26/2018 Unkn own Comp Metabolic Vjj535 ALT(SGPT) 14 U/L 05/26/2018 Unkn own Comp Metabolic Zgg157 BILI T 0.7 mg/dL 05/26/2018 Unkn own Comp Metabolic Evc706 ALBUMIN 3.8 g/dL 05/26/2018 Unkn own Comp Metabolic Dwz189 TPRO 6.9 g/dL 05/26/2018 Unkn own Comp Metabolic Ryr524 GLOB 3.1 g/dL 05/26/2018 Unkn own Comp Metabolic Ocp458 A/G Ratio 1.2 Ratio 05/26/2018 Unkn own Comp Metabolic Exd735 Osmo 279 mOsmo 05/26/2018 Unkn own Lipid [...] 05/26/19 19 Unknown Cbc With Differential Ord2 Petroleum% 8.5 % 05/26/19 19 Unknown Cbc With [...] K/ul 019 Unknown Cbc With Differential Ord2 Petroleum ABS# 0.7 K/ul 05/26/19 19 Unknown Cbc With Differential Ord2 Eos ABS# 0.2 K/ul 05/26/19 19 Unknown Cbc With Differential Ord2 Baso ABS# 0.1 K/ul 05/26/19 19 Unknown Tsh Ord6 TSH (3rd IS) 1.58 uIU/mL 05/26/2018 Unkn own %Hba1C Iji453 % HbA1c 25459-3 5.8 % 05/26/2018 Unknown %Hba1C Eox455 Gluc Ave 120 mg/dL 05/26/2018 Unknown C A/B FLU 0622288 Influenza A Scr Negative 05/06/2017 Unk nown C A/B FLU 8426385 Influenza B Scr Negative 05/06/2017 Unk nown C A/B FLU 8541403 Influenza Intrp B AG:PRID:PT:NOSE:NOM:IF See Footnote 05/06/2017 Unknown Free T4 Ezc594 FREE T4 1.03 ng/dL 03/02/2017 Unknown %Hba1C Yaj238 % HbA1c 79586-9 5.4 % 03/02/2017 Unknown %Hba1C Etc284 Gluc Ave 108 mg/dL 03/02/2017 Unknown Comp Metabolic Xqd667 NA 140 mEq/L 03/02/2017 Unkn own Comp Metabolic Zxb239 K 4.4 mEq/L 03/02/2017 Unkn own Comp Metabolic Tdz719 CL 101 mEq/L 03/02/2017 Unkn own Comp Metabolic Zxg836 CO2 29.0 mEq/L 03/02/2017 Unk nown Comp Metabolic Itw864 ANION GAP 14 03/02/2017 Unkn own Comp Metabolic Ipn967 GLUCOSE 94 mg/dL 03/02/2017 Unkn own Comp Metabolic Ryz902 Creat 1.0 mg/dL 03/02/2017 Unkn own Comp Metabolic Gdf322 eGFR 63 ml/min/1.73m2 03/02/20 17 Unknown Comp Metabolic Vgx981 BUN 20 mg/dL 03/02/2017 Unkn own Comp Metabolic Jtn967 B/C Ratio 20.6 Ratio 03/02/2017 Unk nown Comp Metabolic Rms641 CALCIUM 9.2 mg/dL 03/02/2017 Unkn own Comp Metabolic Ium838 ALK PHOS 67 U/L 03/02/2017 Unkn own Comp Metabolic Skc936 AST(SGOT) 17 U/L 03/02/2017 Unkn own Comp Metabolic Jwm168 ALT(SGPT) 17 U/L 03/02/2017 Unkn own Comp Metabolic Maj357 BILI T 0.5 mg/dL 03/02/2017 Unkn own Comp Metabolic Djh554 ALBUMIN 3.9 g/dL 03/02/2017 Unkn own Comp Metabolic Ngd341 TPRO 6.8 g/dL 03/02/2017 Unkn own Comp Metabolic Vlm267 GLOB 2.9 g/dL 03/02/2017 Unkn own Comp Metabolic Zqc607 A/G Ratio 1.4 Ratio 03/02/2017 Unkn own Comp Metabolic Bbg529 Osmo 282 mOsmo 03/02/2017 Unkn own Cbc [...] 03/02/20 17 Unknown Cbc With Differential Ord2 Petroleum% 8.3 % 03/02/20 17 Unknown Cbc With [...] K/ul 017 Unknown Cbc With Differential Ord2 Petroleum ABS# 0.8 K/ul 03/02/20 17 Unknown Cbc [...] Fe-%Sat 30.4 % 03/02/2017 Unknown Comp Metabolic Ojz135 NA 140 mEq/L 10/11/2016 Unkn own Comp Metabolic Jpz080 K 4.9 mEq/L 10/11/2016 Unkn own Comp Metabolic Zwe444 CL 100 mEq/L 10/11/2016 Unkn own Comp Metabolic Ohz775 CO2 32.0 mEq/L 10/11/2016 Unk nown Comp Metabolic Mfh489 ANION GAP 13 10/11/2016 Unkn own Comp Metabolic Hpt737 GLUCOSE 95 mg/dL 10/11/2016 Unkn own Comp Metabolic Loi169 Creat 1.0 mg/dL 10/11/2016 Unkn own Comp Metabolic Dvf685 eGFR 64 ml/min/1.73m2 10/12/19 17 Unknown Comp Metabolic Mrg119 BUN 17 mg/dL 10/11/2016 Unkn own Comp Metabolic Lpt486 B/C Ratio 17.9 Ratio 10/11/2016 Unk nown Comp Metabolic Zlo111 CALCIUM 9.5 mg/dL 10/11/2016 Unkn own Comp Metabolic Nhb251 ALK PHOS 65 U/L 10/11/2016 Unkn own Comp Metabolic Fpv415 AST(SGOT) 16 U/L 10/11/2016 Unkn own Comp Metabolic Ifr719 ALT(SGPT) 16 U/L 10/11/2016 Unkn own Comp Metabolic Qkn163 BILI T 0.6 mg/dL 10/11/2016 Unkn own Comp Metabolic Yzg113 ALBUMIN 3.8 g/dL 10/11/2016 Unkn own Comp Metabolic Ceu311 TPRO 6.7 g/dL 10/11/2016 Unkn own Comp Metabolic Opf251 GLOB 2.9 g/dL 10/11/2016 Unkn own Comp Metabolic Gyt671 A/G Ratio 1.3 Ratio 10/11/2016 Unkn own Comp Metabolic Erd904 Osmo 281 mOsmo 10/11/2016 Unkn own Cbc [...] 10/12/19 17 Unknown Cbc With Differential Ord2 Petroleum% 8.2 % 10/12/19 17 Unknown Cbc With [...] K/ul 017 Unknown Cbc With Differential Ord2 Petroleum ABS# 0.7 K/ul 10/12/19 17 Unknown Cbc With Differential Ord2 Eos ABS# 0.2 K/ul 10/12/19 17 Unknown Cbc With Differential Ord2 Baso ABS# 0.0 K/ul 10/12/19 17 Unknown Vitamin D 25 Oh Zah1772 VITAMIN D, 25 HYDROXY 14.10 ng/mL 10/11/2016 Unknown Lipid Ord30 CHOL 169 mg/dL 10/11/2016 Unknown Lipid Ord30 HDL 44.0 mg/dl 10/11/2016 Unknown Lipid Ord30 TRIG 139 mg/dL 10/11/2016 Unknown Lipid Ord30 LDL 97 mg/dL 10/11/2016 Unknown Lipid Ord30 C/HDL 3.8 Ratio 10/11/2016 Unknown %Hba1C Gmp026 % HbA1c 49873-0 5.5 % 10/11/2016 Unknown %Hba1C Pxa315 Gluc Ave 111 mg/dL 10/11/2016 Unknown Tsh [...] 01/19/20 16 Unknown Cbc With Differential Ord2 Petroleum% 7.7 % 01/19/20 16 Unknown Cbc With [...] K/ul 016 Unknown Cbc With Differential Ord2 Petroleum ABS# 0.7 K/ul 01/19/20 16 Unknown Cbc [...] Ratio 01/19/2016 Unknown Vitamin D 25 Oh Lkc9142 VITAMIN D, 25 HYDROXY 33.57 ng/mL 01/19/2016 Unknown %Hba1C Chk713 % HbA1c 68143-3 5.6 % 01/19/2016 Unknown %Hba1C Tzr634 Gluc Ave 114 mg/dL 01/19/2016 Unknown Comp Metabolic Qvu135 NA 136 mEq/L 01/19/2016 Unkn own Comp Metabolic Qmy478 K 4.1 mEq/L 01/19/2016 Unkn own Comp Metabolic Mqf196 CL 100 mEq/L 01/19/2016 Unkn own Comp Metabolic Fzf333 CO2 32.0 mEq/L 01/19/2016 Unk nown Comp Metabolic Oap655 ANION GAP 8 01/19/2016 Unkn own Comp Metabolic Eqx661 GLUCOSE 96 mg/dL 01/19/2016 Unkn own Comp Metabolic Wat322 Creat 0.9 mg/dL 01/19/2016 Unkn own Comp Metabolic Scz437 eGFR 68 ml/min/1.73m2 01/19/20 16 Unknown Comp Metabolic Zma526 BUN 19 mg/dL 01/19/2016 Unkn own Comp Metabolic Xtb148 B/C Ratio 20.9 Ratio 01/19/2016 Unk nown Comp Metabolic Uod235 CALCIUM 9.4 mg/dL 01/19/2016 Unkn own Comp Metabolic Stu717 ALK PHOS 59 U/L 01/19/2016 Unkn own Comp Metabolic Zzu076 AST(SGOT) 15 U/L 01/19/2016 Unkn own Comp Metabolic Xrs142 ALT(SGPT) 15 U/L 01/19/2016 Unkn own Comp Metabolic Abw284 BILI T 0.6 mg/dL 01/19/2016 Unkn own Comp Metabolic Nkv726 ALBUMIN 3.9 g/dL 01/19/2016 Unkn own Comp Metabolic Zgo632 TPRO 6.8 g/dL 01/19/2016 Unkn own Comp Metabolic Aap655 GLOB 2.9 g/dL 01/19/2016 Unkn own Comp Metabolic Chz710 A/G Ratio 1.4 Ratio 01/19/2016 Unkn own Comp Metabolic Xxi204 Osmo 274 mOsmo 01/19/2016 Unkn own Tsh Ord6 hTSH II 1.47 uIU/mL 01/19/2016 Unknown %Hba1C Zfq203 % HbA1c 82955-2 5.9 % 05/30/2015 Unknown %Hba1C Xow328 Gluc Ave 123 mg/dL 05/30/2015 Unknown Tsh Ord6 hTSH II 1.51 uIU/mL 02/27/2015 Unknown Comp Metabolic Tgd417 NA 134 mEq/L 02/27/2015 Unkn own Comp Metabolic Vph213 K 4.3 mEq/L 02/27/2015 Unkn own Comp Metabolic Ake610 CL 102 mEq/L 02/27/2015 Unkn own Comp Metabolic Ext038 CO2 24.0 mEq/L 02/27/2015 Unk nown Comp Metabolic Wpl361 ANION GAP 12 02/27/2015 Unkn own Comp Metabolic Irk143 GLUCOSE 131 mg/dL 02/27/2015 Unkn own Comp Metabolic Jdr506 Creat 1.1 mg/dL 02/27/2015 Unkn own Comp Metabolic Fml433 eGFR 57 ml/min/1.73m2 02/28/20 15 Unknown Comp Metabolic Dyu935 BUN 17 mg/dL 02/27/2015 Unkn own Comp Metabolic Jxo774 B/C Ratio 16.2 Ratio 02/27/2015 Unk nown Comp Metabolic Uog647 CALCIUM 9.4 mg/dL 02/27/2015 Unkn own Comp Metabolic Yog549 ALK PHOS 73 U/L 02/27/2015 Unkn own Comp Metabolic Hvd205 AST(SGOT) 18 U/L 02/27/2015 Unkn own Comp Metabolic Wny753 ALT(SGPT) 17 U/L 02/27/2015 Unkn own Comp Metabolic Ftx608 BILI T 0.8 mg/dL 02/27/2015 Unkn own Comp Metabolic Rqe449 ALBUMIN 3.9 g/dL 02/27/2015 Unkn own Comp Metabolic Jrp157 TPRO 7.2 g/dL 02/27/2015 Unkn own Comp Metabolic Oai066 GLOB 3.3 g/dL 02/27/2015 Unkn own Comp Metabolic Yzz020 A/G Ratio 1.2 Ratio 02/27/2015 Unkn own Comp Metabolic Xti359 Osmo 272 mOsmo 02/27/2015 Unkn own Lipid Ord30 CHOL 197 mg/dL 02/27/2015 Unknown Lipid Ord30 HDL 41.0 mg/dl 02/27/2015 Unknown Lipid Ord30 TRIG 137 mg/dL 02/27/2015 Unknown Lipid Ord30 LDL 129 mg/dL 02/27/2015 Unknown Lipid Ord30 C/HDL 4.8 Ratio 02/27/2015 Unknown Free T4 Vnz695 FREE T4 1.10 ng/dL 02/27/2015 Unknown Vitamin D 25 Oh Adf8742 VITAMIN D, 25 HYDROXY 10.95 ng/mL 02/27/2015 [...] RDW 14.9 % 02/27/20 15 Unknown %Hba1C Gzv739 % HbA1c 11784-8 7.3 % 02/26/2015 Unknown %Hba1C Lrp232 Gluc Ave 163 mg/dL 02/26/2015 Unknown Procedures Procedure Codes Date ROCEPHIN, PER 250 MG CPT-4: J0696 05/06/2017 TRIAMCINOLONE ACET INJ NOS 10 mg CPT-4: J3301 018 Vital Signs Date Vital 08/05/2020 Blood Pressure 1: 142/78 Code: 8480-6 BMI: 50.9 Code: 83158-9 Heart Rate 1: 87 bpm Height: 5'8" Code: 8302-2 SpO2: 98% Temperature: 3 6.2 (C) / 97.1 (F) Weight: 335 lbs Code: 92342-7 03/24/2020 Blood Pressure 1: 132/74 Code: 8480-6 BMI: 51.7 Code: 15555-2 Heart Rate 1: 90 bpm Height: 5'8" Code: 8302-2 Respiratory Rate: 15 bpm SpO2: 95% Temperature: 36.4 (C) / 97.5 (F) Weight: 340 lbs Code: 70829-6 12/26/2018 BMI: 52.6 Code: 81469-1 Heart Rate 1: 80 bpm Hei ght: 5'8" Code: 8302-2 Respiratory Rate: 16 bpm SpO2: 98% Weight: 346 lbs Code: 75143-7 05/25/2018 Blood Pressure 1: 122/68 Code: 8480-6 BMI: 52.6 Code: 66668-4 Heart Rate 1: 69 bpm Height: 5'8" Code: 8302-2 SpO2: 96% Weight: 346 lb s Code: 84779-7 05/06/2017 Blood Pressure 1: 134/76 Code: 8480-6 Heart Rate 1: 84 bpm Height: 5'8" Code: 8302-2 SpO2: 96% Temperature: 36.6 (C) / 97.8 (F) Weight: Code: 85497-8 03/02/2017 Blood Pressure 1: 132/72 Code: 8480-6 BMI: 51.2 Code: 72332-3 Heart Rate 1: 67 bpm Height: 5'8" Code: 8302-2 SpO2: 98% Weight: 337 lb s Code: 98350-7 10/06/2016 Blood Pressure 1: 128/76 Code: 8480-6 BMI: 50.9 Code: 85286-1 Heart Rate 1: 70 bpm Height: 5'8" Code: 8302-2 SpO2: 98% Weight: 335 lb s Code: 73430-7 01/15/2016 Blood Pressure 1: 130/72 Code: 8480-6 BMI: 49.3 Code: 82460-2 Heart Rate 1: 68 bpm Height: 5'8" Code: 8302-2 SpO2: 98% Weight: 324 lb s Code: 17613-5 05/29/2015 Blood Pressure 1: 136/80 Code: 8480-6 BMI: 52.2 Code: 78245-3 Heart Rate 1: 69 bpm Height: 5'8" Code: 8302-2 SpO2: 97% Weight: 343 lb s Code: 19901-0 03/31/2015 Blood Pressure 1: 136/78 Code: 8480-6 BMI: 53.4 Code: 52077-0 Heart Rate 1: 69 bpm Height: 5'8" Code: 8302-2 SpO2: 96% Weight: 351 lb s Code: 10726-3 02/26/2015 Blood Pressure 1: 128/80 Code: 8480-6 BMI: 56.3 Code: 55675-2 Heart Rate 1: 79 bpm Height: 5'8" Code: 8302-2 SpO2: 96% Weight: 370 lb s Code: 86088-9 Functional Status No Functional Status data Reason For Visit Reason For Visit Effective Dates Notes rash 08/05/2020 diabetes mellitus 03/24/2020 diabetes mellitus 12/26/2018 diabetes mellitus 05/25/2018 fever 05/06/2017 diabetes mellitus 03/02/2017 diabetes mellitus 10/06/2016 diabetes mellitus 01/15/2016 fatigue 05/29/2015 fatigue 03/31/2015 fatigue 02/26/2015 Encounters Encounter Performer Location Codes Date (213 EST. PATIENT, LEVEL III Diagnosis: Superficial phlebitis and thrombophlebitis of left leg[ICD10: I80.02] [facility] CPT-4: 18387 08/06/19 21 ([id number]) PREV VISIT EST AGE 40-64 Diagnosis: Encounter for general adult medical examination with abnormal findings[ICD10: Z00.01] Divya Garcia MD, [facility] CPT-4: 07715 03/24/2020 ([id number]) 73756 EST. PATIENT, LEVEL IV Diagnosis: Type 2 diabetes mellitus without complications[ICD10: E11.9] Diagnosis: Mastodynia[ICD10: N64.4] Diagnosis: Pain in left knee[ICD10: M25.562] Diagnosis: Bilateral primary osteoarthritis of knee[ICD10: M17.0] Divya Garcia MD, [facility] CPT-4: 33112 12/26/2018 ([id number]) PREV VISIT EST AGE 40-64 Diagnosis: Encounter for general adult medical examination with abnormal findings[ICD10: Z00.01] Divya Garcia MD, [facility] CPT-4: 56110 05/25/2018 72036 EST. PATIENT, LEVEL III Diagnosis: Other malaise[ICD10: R53.81] Diagnosis: Fever, unspecified[ICD10: R50.9] Diagnosis: Acute laryngopharyngitis[ICD10: J06.0] Norma Terrell MD, [facility] CPT-4: 03157 05/06/2017 ([id number]) 36522 EST. PATIENT, LEVEL IV Diagnosis: Type 2 diabetes mellitus without complications[ICD10: E11.9] Diagnosis: Nontoxic multinodular goiter[ICD10: E04.2] Diagnosis: Morbid (severe) obesity due to excess calories[ICD10: E66.01] Diagnosis: Nonscarring hair loss, unspecified[ICD10: L65.9] Divya Garcia MD, [facility] CPT-4: 14339 03/02/2017 ([id number]) PREV VISIT EST AGE 40-64 Diagnosis: Encounter for general adult medical examination with abnormal findings[ICD10: Z00.01] Divya Garcia MD, [facility] CPT-4: 96107 10/06/2016 ([id number]) [id number] EST. PATIENT, LEVEL IV Diagnosis: Type 2 diabetes mellitus without complications[ICD10: E11.9] Diagnosis: Morbid (severe) obesity due to excess calories[ICD10: E66.01] Diagnosis: Vitamin D deficiency, unspecified[ICD10: E55.9] Diagnosis: Nontoxic multinodular goiter[ICD10: E04.2] [facility] CPT-4: 04943 01/15/2016 ([id number]) 21040 EST. PATIENT, LEVEL III Diagnosis: Type 2 diabetes mellitus without complications[ICD10: E11.9] [facility] CPT-4: 91591 05/29/2015 ([id number]) 57359 EST. PATIENT, LEVEL III Diagnosis: Type 2 diabetes mellitus without complications[ICD10: E11.9] Diagnosis: Vitamin D deficiency, unspecified[ICD10: E55.9] [facility] CPT-4: 81672 03/31/2015 ([id number]) PREV VISIT NEW AGE 40-64 Diagnosis: Encounter for general adult medical examination with abnormal findings[ICD10: Z00.01] [facility] CPT-4: 14529 02/26/2015 Plan of Care Planned Activity Notes Codes Status Date Appointment: [phone] [phone] [place] ([facility] min) Moderate 12/22/2020 Appointment: Divya Garcia WPtel: [phone] [place] (15 min[place] Moderate 11/06/2020 Appointment: Divya Garcia WPtel: [facility] [place] ([facility] min) Moderate 10/15/2020 Appointment: Divya Garcia WPtel: [facility] [place] ([facility] min) Moderate 09/15/2020 Visit Plan: [...] notified and going today. 08/05/2020 [phone] [place] ([facility] min) Complex 08/05/2020 Patient Education: [...] sleep. 03/24/2020 Appointment: Divya Garcia WPtel: [phone] [facility] [place] (15 min) Moderate 03/24/2020 Patient Education: Patient Medication Summary Completed 03/24/2020 Patient Education: Diabetes Completed 03/24/2020 Appointment: Divya Garcia WPtel: [phone] [facility] [place] (15 min) Moderate 03/06/2020 Appointment: Divya Garcia WPtel: [phone] [facility] [place] (15 min) Moderate 02/06/2019 Visit Plan: [...] pharmacy. 12/26/2018 Appointment: Divya Garcia WPtel: [facility] (15 min) Moderate 12/26/2018 Patient Education: Patient Medication Summary Completed 12/26/2018 Patient Education: Diabetes Completed 12/26/2018 Care Plan: Unilateral DIAGNOSTICMAMMOGRAPHYDIGITAL [facility] : [id number] Pending 12/26/2018 Patient Education: Patient Medication Summary Completed 12/14/2018 Appointment: Divya Garcia WPtel: [facility] (15 min) Moderate 12/13/2018 Visit Plan: Well [...] T4 05/25/2018 Appointment: Divya Garcia WPtel: [facility] [place] [place] (15 min) Moderate 05/25/2018 Patient Education: Patient Medication Summary Completed 05/25/2018 Patient Education: Obesity Completed 0 05/25/2018 Appointment: Divya Garcia WPtel: [facility] [place] [place] (15 min) Moderate 07/11/2017 Appointment: Divya Garcia WPtel: [facility] [place] [place] (15 min) Moderate 06/28/2017 Visit Plan: [...] allergy spray. 05/06/2017 Appointment: Norma Isbell WPtel: [facility] [place] (15 min) Moderate 05/06/2017 Patient Education: [...] ESR 03/02/2017 Appointment: Divya Garcia WPtel: [facility] [place] (15 min) Moderate 03/02/2017 Patient Education: Patient Medication Summary Completed 03/02/2017 Patient Education: Obesity Completed 1 05/02/2016 Care Plan: Iron Pending 03/02/2017 Appointment: Divya Garcia WPtel: [facility] [place] (15 min) Moderate 01/31/2017 Visit Plan: [...] patient. 10/06/2016 Appointment: Divya Garcia WPtel: [phone] [facility] (15 min) Moderate 10/06/2016 Patient Education: Patient Medication Summary Completed 10/06/2016 Patient Education: Obesity Completed 0 10/06/2016 Appointment: Divya Garcia WPtel: [phone] [facility] [place] (15 min) Moderate 09/15/2016 Appointment: Divya Garcia WPtel: [phone] [facility] [place] (15 min) Moderate 08/16/2016 Appointment: Divya Garcia WPtel: [address] [facility] [place] (15 min) Moderate 07/15/2016 Patient Education: Patient Medication Summary Completed 01/27/2016 Care Plan: SCREENINGMAMMOGRAPHYDIGITAL L OINC : [id number] Pending 01/27/2016 Visit Plan: Diabetes Mellitus - [...] -check labs 01/15/2016 Appointment: Divya Garcia WPtel: [phone] [facility] (15 min) Moderate 01/15/2016 Patient Education: Patient Medication Summary Completed 01/15/2016 Patient Education: Obesity Completed 0 01/15/2016 Appointment: Divya Garcia WPtel: [facility] [place] (15 min) Moderate 08/26/2015 Visit Plan: Diabetes [...] or belviq 05/29/2015 Appointment: Divya Garcia WPtel: [facility] [place] (15 min) Moderate 05/29/2015 Patient Education: Patient [...] less controlled. 03/31/2015 Appointment: Divya Garcia WPtel: [facility] [place] (15 min) Moderate 03/31/2015 Patient [...] glucose levels. 02/26/2015 Appointment: Divya Garcia WPtel: [facility] [place] [place] ([place] New Patient 02/26/2015 Patient Education: [...] ferritin, ESR dustin lira and dr. ellen mudder wild diet grain brain . Well Adult [...] . Diabetes Mellitus - controlled - per rosalva mohamud FSBS reports. I have recommended for the [...]
--- OUTSIDE RECORDS SUMMARY | 2020-12-30 12:39 | XMS REPORT | CCD ---
Author Author Cecilia Garcia Organization Divya Garcia MD, 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 Never smoker 02/26/[address]: 000692436 Never drinks alcohol 2014 Allergies, Adverse Reactions, [...] Instructions ondansetron 4 mg disintegrating tablet RxNorm: 664644 1 Tablet(s) Oral Q6 as needed 12/24/2020 01/22/2021 Active Cipro 500 mg tablet RxNorm: 607240 1 Tablet(s) Oral two times a day 12/24/2020 12/24/2020 Inactive ondansetron 4 mg disintegrating tablet RxNorm: 214524 1 Tablet(s) Oral Q6 as needed 12/24/2020 12/24/2020 Inactive Flagyl 500 mg tablet RxNorm: 643233 1 Tablet(s) Oral three time s a day 12/24/2020 12/30/2020 Active Flagyl 500 mg tablet RxNorm: 569522 1 Tablet(s) Oral three time s a day 12/24/2020 12/24/2020 Inactive bupropion HCl 75 mg tablet RxNorm: 345947 1 Tablet(s) Oral two times a day 12/24/2020 12/24/2020 Inactive bupropion HCl 75 mg tablet RxNorm: 842162 1 Tablet(s) Oral two times a day 12/24/2020 01/22/2021 Active Cipro 500 mg tablet RxNorm: 137522 1 Tablet(s) Oral two times a day 12/24/2020 12/30/2020 Active fluconazole 150 mg tablet RxNorm: 499284 Take 1 Tablet(s) Oral every other day 12/22/2020 12/27/2020 Active nystatin 100,000 unit/mL oral suspension RxNorm: 078942 Take 5 Milliliter(s) Oral four times a day 12/22/2020 12/31/2020 Active Diflucan 150 mg tablet RxNorm: 579661 Take 1 Tablet(s) Oral jeffy ry day 12/04/2020 12/04/2020 Inactive Diflucan 150 mg tablet RxNorm: 517100 Take 1 Tablet(s) Oral jeffy ry day 12/04/2020 12/10/2020 Inactive cephalexin 500 mg tablet RxNorm: 082985 1 Tablet(s) Oral three times a day 08/05/2020 08/12/2020 Inactive metformin 500 mg tablet RxNorm: 393966 TKAE 1/2 TABLET BY MOUTH TWICE DAILY 05/12/2020 02/05/2021 Active Vitamin D2 1,250 mcg (50,000 unit) capsule RxNorm: 9843101 1 Capsule(s) Oral once a week 04/15/2020 07/14/2020 Inactive tramadol 50 mg tablet RxNorm: 990979 1 Tablet(s) Oral t hree times a day as needed arthritis pain 03/24/2020 07/21/2020 Inactive metformin 500 mg tablet RxNorm: 958401 TKAE 1/2 TABLET BY MOUTH TWICE DAILY 02/11/2020 05/10/2020 Inactive metformin 500 mg tablet RxNorm: 908604 TABLET(S) TAKE 1 /2 TABLET BY MOUTH TWICE DAILY 07/12/2019 02/10/2020 Inactive metformin 500 mg tablet RxNorm: 415875 TABLET(S) TAKE 1 /2 TABLET BY MOUTH TWICE DAILY 06/19/2019 07/11/2019 Inactive Keflex 500 mg capsule RxNorm: 725372 1 Capsule(s) Oral three ti mes a day 05/03/2019 05/02/2019 Inactive cephalexin 500 mg tablet RxNorm: 281270 1 Tablet(s) Oral three times a day 05/03/2019 05/10/2019 Inactive interactions reviewe d, fill the medication as written please Bactrim DS 800 mg-160 mg tablet RxNorm: 979947 1 Tablet(s) Oral two times a day 03/23/2019 03/22/2019 Inactive Bactrim DS 800 mg-160 mg tablet RxNorm: 190125 1 Tablet(s) Oral two times a day 03/23/2019 04/01/2019 Inactive Vitamin D3 5,000 unit tablet RxNorm: 208548 1 Tablet(s) PO daily No Stop Date Active Voltaren 1 % topical gel RxNorm: 954413 2 Gram(s) TOP QID 12/26/2018 04/24/2019 Inactive metformin 500 mg tablet RxNorm: 180685 TABLET(S) TAKE 1 /2 TABLET BY MOUTH TWICE DAILY 10/30/2018 06/18/2019 Inactive metformin 500 mg tablet RxNorm: 844116 TABLET(S) TAKE 1 /2 TABLET BY MOUTH TWICE DAILY 05/18/2018 10/29/2018 Inactive metformin 500 mg tablet RxNorm: 783025 Tablet(s) TAKE 1 /2 TABLET BY MOUTH TWICE DAILY 10/13/2017 04/10/2018 Inactive metformin 500 mg tablet RxNorm: 298483 TAKE 1/2 TABLET BY MOUTH TWICE DAILY 09/02/2017 10/12/2017 Inactive Phenergan with Codeine Syrup RxNorm: 5-10 Milliliter(s) PO QID as needed 05/06/2017 10/29/2018 Inactive Kenalog 40 mg/mL suspension for injection RxNorm: 1603807 1 Mill iliter(s) Inj 05/06/2017 05/06/2017 Inactive Tamiflu 75 mg capsule RxNorm: 497691 1 Capsule(s) PO BID 05/06/2017 0 05/10/2017 Inactive prednisone 20 mg tablet RxNorm: 940341 2 Tablet(s) PO daily 018 05/10/2017 Inactive cefdinir 300 mg capsule RxNorm: 709673 1 Capsule(s) PO BID 05/06/19 18 05/15/2017 Inactive Zithromax Z-Xavier 250 mg tablet RxNorm: 762392 1 Tablet(s) PO UD 04/2505/17/2018 Inactive ceftriaxone 500 mg solution for injection RxNorm: 9649344 1 Mill iliter(s) Inj 05/06/2017 05/06/2017 Inactive metformin 500 mg tablet RxNorm: 027055 TAKE 1/2 TABLET BY MOUTH TWICE DAILY 11/29/2016 10/12/2017 Inactive Vitamin D2 50,000 unit capsule RxNorm: 643849 1 Capsule(s) PO QW 04/08/2017 Inactive hydrochlorothiazide 25 mg tablet RxNorm: 435999 1 Table t(s) PO daily as needed edema 10/06/2016 02/02/2017 Inactive potassium chloride ER 10 mEq tablet,extended release RxNorm: 885610 1 Tablet(s) PO daily as needed when taking hctz 10/06/2016 02/02/2017 Inactive metformin 500 mg tablet RxNorm: 229625 1/2 Tablet(s) PO BID 017 10/12/2017 Inactive prednisone 20 mg tablet RxNorm: 211647 2 Tablet(s) PO P RN at onset of exposure to insect bite 10/06/2016 12/25/2018 Inactive tramadol 50 mg tablet RxNorm: 800894 1 Tablet(s) PO TID as needed arthritis pain 10/06/2016 02/02/2017 Inactive metformin 500 mg tablet RxNorm: 482443 1/2 TABLET(S) PO BID 016 10/05/2016 Inactive Vitamin D2 50,000 unit capsule RxNorm: 142932 1 Capsule(s) PO QW 08/26/2015 Inactive Vitamin D3 5,000 unit tablet RxNorm: 597889 1 Tablet(s) PO daily 01/14/2016 Inactive metformin 500 mg tablet RxNorm: 477924 1/2 Tablet(s) PO BID 03/02/2015 Inactive Vitamin D2 50,000 unit capsule RxNorm: 234653 1 Capsule(s) PO QW 05/28/2015 Inactive metformin 500 mg tablet RxNorm: 983677 1/2 Tablet(s) PO BID 015 02/25/2016 Inactive Vitamin D2 50,000 unit capsule RxNorm: 791693 1 Capsule(s) PO QW 03/02/2015 Inactive Xiidra 5 % eye drops in a dropperette RxNorm: 4199378 1 ophthalm ic (eye) BID 12/26/2018 Active Vitamin D3 1,000 unit tablet RxNorm: 818065 1 Tablet(s) PO daily 12/25/2018 Inactive Medication Administered Medication Codes Instructions Start Date Status ceftriaxone 500 mg solution for injection RxNorm: 5905763 1Milli liter 05/06/2017 No longer Active Kenalog 40 mg/mL suspension for injection RxNorm: 3048314 1Milli liter 05/06/2017 No longer Active Immunizations Vaccine Codes Date Status Influenza CVX: 135 01/22/2015 Tetanus, Diptheria, Pertussis CVX: 04/25/2012 Tetanus/Diptheria CVX: 04/25/2012 Results Observation Observation Code Item Item Code Result Date S ervice Location Comp Metabolic Wvw850 NA 140 mEq/L 04/10/2020 Unkn own Comp Metabolic Ilv387 K 4.4 mEq/L 04/10/2020 Unkn own Comp Metabolic Lti095 CL 101 mEq/L 04/10/2020 Unkn own Comp Metabolic Bjv341 CO2 31.0 mEq/L 04/10/2020 Unk nown Comp Metabolic Twj106 ANION GAP 12 04/10/2020 Unkn own Comp Metabolic Otf140 GLUCOSE 105 mg/dL 04/10/2020 Unkn own Comp Metabolic Bvd504 Creat 0.9 mg/dL 04/10/2020 Unkn own Comp Metabolic Alp629 eGFR 66 ml/min/1.73m2 04/10/20 20 Unknown Comp Metabolic Wyg024 BUN 18 mg/dL 04/10/2020 Unkn own Comp Metabolic Pse077 B/C Ratio 19.6 Ratio 04/10/2020 Unk nown Comp Metabolic Zng722 CALCIUM 9.3 mg/dL 04/10/2020 Unkn own Comp Metabolic Omt191 ALK PHOS 64 U/L 04/10/2020 Unkn own Comp Metabolic Jrl173 AST(SGOT) 14 U/L 04/10/2020 Unkn own Comp Metabolic Vns626 ALT(SGPT) 13 U/L 04/10/2020 Unkn own Comp Metabolic Ych670 BILI T 0.5 mg/dL 04/10/2020 Unkn own Comp Metabolic Uih258 ALBUMIN 3.8 g/dL 04/10/2020 Unkn own Comp Metabolic Uug097 TPRO 6.8 g/dL 04/10/2020 Unkn own Comp Metabolic Jxs630 GLOB 3.0 g/dL 04/10/2020 Unkn own Comp Metabolic Uis792 A/G Ratio 1.2 Ratio 04/10/2020 Unkn own Comp Metabolic Gzt954 Osmo 282 mOsmo 04/10/2020 Unkn own Tsh Ord6 TSH (3rd IS) 1.67 uIU/mL 04/10/2020 Unkn own %Hba1C Vbk926 % HbA1c 04348-0 6.0 % 04/10/2020 Unknown %Hba1C Rsy453 Gluc Ave 126 mg/dL 04/10/2020 Unknown Cbc [...] pg 04/10/20 Unknown Cbc With Differential Ord2 [place]% 7.3 % 04/10/20 Unknown Cbc With Differential Ord2 MCHC 32.5 pg 04/10/20 Unknown Cbc With Differential Ord2 Eos% 1.6 % 12/17/20 20 Unknown Cbc With Differential Ord2 PLT 316 K/ul 04/10/20 20 Unknown Cbc With Differential Ord2 Baso% 0.4 % 04/10/20 20 Unknown Cbc With Differential Ord2 RDW 14.1 % 04/10/20 20 Unknown Cbc With Differential Ord2 Neut ABS# 6.28 K/ul 04/10/20 20 Unknown Cbc With Differential Ord2 Lymph ABS# 2.22 K/ul 020 Unknown Cbc With Differential Ord2 [place] ABS# 0.7 K/ul 04/10/20 20 Unknown Cbc [...] Ratio 04/10/2020 Unknown Vitamin D 25 Oh Hqj2458 VITAMIN D, 25 HYDROXY 17.87 ng/mL 04/10/2020 Unknown %Hba1C Wrj266 % HbA1c 64767-5 6.0 % 12/22/2018 Unknown %Hba1C Itm109 Gluc Ave 126 mg/dL 12/22/2018 Unknown Microalbumin Cuy214 MicroAlb <0.7 mg/dL 05/26/2018 Unkno wn Comp Metabolic Xjp927 NA 139 mEq/L 05/26/2018 Unkn own Comp Metabolic Gyo027 K 4.7 mEq/L 05/26/2018 Unkn own Comp Metabolic Cjb769 CL 101 mEq/L 05/26/2018 Unkn own Comp Metabolic Aea328 CO2 32.0 mEq/L 05/26/2018 Unk nown Comp Metabolic Jlq410 ANION GAP 11 05/26/2018 Unkn own Comp Metabolic Igx272 GLUCOSE 98 mg/dL 05/26/2018 Unkn own Comp Metabolic Qev423 Creat 0.9 mg/dL 05/26/2018 Unkn own Comp Metabolic Bce727 eGFR 69 ml/min/1.73m2 05/26/19 19 Unknown Comp Metabolic Jnn259 BUN 17 mg/dL 05/26/2018 Unkn own Comp Metabolic Smq908 B/C Ratio 19.1 Ratio 05/26/2018 Unk nown Comp Metabolic Kug731 CALCIUM 9.3 mg/dL 05/26/2018 Unkn own Comp Metabolic Fki072 ALK PHOS 61 U/L 05/26/2018 Unkn own Comp Metabolic Kbx263 AST(SGOT) 14 U/L 05/26/2018 Unkn own Comp Metabolic Tnf082 ALT(SGPT) 14 U/L 05/26/2018 Unkn own Comp Metabolic Loa304 BILI T 0.7 mg/dL 05/26/2018 Unkn own Comp Metabolic Hea146 ALBUMIN 3.8 g/dL 05/26/2018 Unkn own Comp Metabolic Heq874 TPRO 6.9 g/dL 05/26/2018 Unkn own Comp Metabolic Yie599 GLOB 3.1 g/dL 05/26/2018 Unkn own Comp Metabolic Naa909 A/G Ratio 1.2 Ratio 05/26/2018 Unkn own Comp Metabolic Nja173 Osmo 279 mOsmo 05/26/2018 Unkn own Lipid [...] 05/26/19 19 Unknown Cbc With Differential Ord2 [place]% 8.5 % 05/26/19 19 Unknown Cbc With [...] K/ul 019 Unknown Cbc With Differential Ord2 [place] ABS# 0.7 K/ul 05/26/19 19 Unknown Cbc With Differential Ord2 Eos ABS# 0.2 K/ul 05/26/19 19 Unknown Cbc With Differential Ord2 Baso ABS# 0.1 K/ul 05/26/19 19 Unknown Tsh Ord6 TSH (3rd IS) 1.58 uIU/mL 05/26/2018 Unkn own %Hba1C Eag277 % HbA1c 91921-7 5.8 % 05/26/2018 Unknown %Hba1C Ocl753 Gluc Ave 120 mg/dL 05/26/2018 Unknown C A/B FLU 4401880 Influenza A Scr Negative 05/06/2017 Unk nown C A/B FLU 1609095 Influenza B Scr Negative 05/06/2017 Unk nown C A/B FLU 1965117 Influenza Intrp B AG:PRID:PT:NOSE:NOM:IF See Footnote 05/06/2017 Unknown Free T4 Low567 FREE T4 1.03 ng/dL 03/02/2017 Unknown %Hba1C Vgc134 % HbA1c 12083-9 5.4 % 03/02/2017 Unknown %Hba1C Eeo384 Gluc Ave 108 mg/dL 03/02/2017 Unknown Comp Metabolic Gzl857 NA 140 mEq/L 03/02/2017 Unkn own Comp Metabolic Alx238 K 4.4 mEq/L 03/02/2017 Unkn own Comp Metabolic Fdq802 CL 101 mEq/L 03/02/2017 Unkn own Comp Metabolic Ajn453 CO2 29.0 mEq/L 03/02/2017 Unk nown Comp Metabolic Ywc062 ANION GAP 14 03/02/2017 Unkn own Comp Metabolic Ano409 GLUCOSE 94 mg/dL 03/02/2017 Unkn own Comp Metabolic Oqe900 Creat 1.0 mg/dL 03/02/2017 Unkn own Comp Metabolic Fqx362 eGFR 63 ml/min/1.73m2 03/02/20 17 Unknown Comp Metabolic Sqs971 BUN 20 mg/dL 03/02/2017 Unkn own Comp Metabolic Nft123 B/C Ratio 20.6 Ratio 03/02/2017 Unk nown Comp Metabolic Pnl105 CALCIUM 9.2 mg/dL 03/02/2017 Unkn own Comp Metabolic Rwv046 ALK PHOS 67 U/L 03/02/2017 Unkn own Comp Metabolic Ghu449 AST(SGOT) 17 U/L 03/02/2017 Unkn own Comp Metabolic Nls159 ALT(SGPT) 17 U/L 03/02/2017 Unkn own Comp Metabolic Mut461 BILI T 0.5 mg/dL 03/02/2017 Unkn own Comp Metabolic Xmp156 ALBUMIN 3.9 g/dL 03/02/2017 Unkn own Comp Metabolic Opv331 TPRO 6.8 g/dL 03/02/2017 Unkn own Comp Metabolic Erm350 GLOB 2.9 g/dL 03/02/2017 Unkn own Comp Metabolic Psy169 A/G Ratio 1.4 Ratio 03/02/2017 Unkn own Comp Metabolic Gyr221 Osmo 282 mOsmo 03/02/2017 Unkn own Cbc [...] 03/02/20 17 Unknown Cbc With Differential Ord2 [place]% 8.3 % 03/02/20 17 Unknown Cbc With [...] K/ul 017 Unknown Cbc With Differential Ord2 [place] ABS# 0.8 K/ul 03/02/20 17 Unknown Cbc [...] Fe-%Sat 30.4 % 03/02/2017 Unknown Comp Metabolic Vfv796 NA 140 mEq/L 10/11/2016 Unkn own Comp Metabolic Kot667 K 4.9 mEq/L 10/11/2016 Unkn own Comp Metabolic Nrh141 CL 100 mEq/L 10/11/2016 Unkn own Comp Metabolic Lgx716 CO2 32.0 mEq/L 10/11/2016 Unk nown Comp Metabolic Xmj023 ANION GAP 13 10/11/2016 Unkn own Comp Metabolic Haw835 GLUCOSE 95 mg/dL 10/11/2016 Unkn own Comp Metabolic Oub966 Creat 1.0 mg/dL 10/11/2016 Unkn own Comp Metabolic Stg144 eGFR 64 ml/min/1.73m2 10/12/19 17 Unknown Comp Metabolic Shv762 BUN 17 mg/dL 10/11/2016 Unkn own Comp Metabolic Fep301 B/C Ratio 17.9 Ratio 10/11/2016 Unk nown Comp Metabolic Coe501 CALCIUM 9.5 mg/dL 10/11/2016 Unkn own Comp Metabolic Jsc260 ALK PHOS 65 U/L 10/11/2016 Unkn own Comp Metabolic Nsx378 AST(SGOT) 16 U/L 10/11/2016 Unkn own Comp Metabolic Nby128 ALT(SGPT) 16 U/L 10/11/2016 Unkn own Comp Metabolic Mof578 BILI T 0.6 mg/dL 10/11/2016 Unkn own Comp Metabolic Fzd183 ALBUMIN 3.8 g/dL 10/11/2016 Unkn own Comp Metabolic Izg158 TPRO 6.7 g/dL 10/11/2016 Unkn own Comp Metabolic Bii119 GLOB 2.9 g/dL 10/11/2016 Unkn own Comp Metabolic Iej423 A/G Ratio 1.3 Ratio 10/11/2016 Unkn own Comp Metabolic Bmm548 Osmo 281 mOsmo 10/11/2016 Unkn own Cbc [...] 10/12/19 17 Unknown Cbc With Differential Ord2 [place]% 8.2 % 10/12/19 17 Unknown Cbc With [...] K/ul 017 Unknown Cbc With Differential Ord2 [place] ABS# 0.7 K/ul 10/12/19 17 Unknown Cbc With Differential Ord2 Eos ABS# 0.2 K/ul 10/12/19 17 Unknown Cbc With Differential Ord2 Baso ABS# 0.0 K/ul 10/12/19 17 Unknown Vitamin D 25 Oh Pja0762 VITAMIN D, 25 HYDROXY 14.10 ng/mL 10/11/2016 Unknown Lipid Ord30 CHOL 169 mg/dL 10/11/2016 Unknown Lipid Ord30 HDL 44.0 mg/dl 10/11/2016 Unknown Lipid Ord30 TRIG 139 mg/dL 10/11/2016 Unknown Lipid Ord30 LDL 97 mg/dL 10/11/2016 Unknown Lipid Ord30 C/HDL 3.8 Ratio 10/11/2016 Unknown %Hba1C Dub740 % HbA1c 68561-7 5.5 % 10/11/2016 Unknown %Hba1C Ipv093 Gluc Ave 111 mg/dL 10/11/2016 Unknown Tsh [...] 01/19/20 16 Unknown Cbc With Differential Ord2 [place]% 7.7 % 01/19/20 16 Unknown Cbc With [...] K/ul 016 Unknown Cbc With Differential Ord2 [place] ABS# 0.7 K/ul 01/19/20 16 Unknown Cbc [...] Ratio 01/19/2016 Unknown Vitamin D 25 Oh Nav7549 VITAMIN D, 25 HYDROXY 33.57 ng/mL 01/19/2016 Unknown %Hba1C Xge978 % HbA1c 95491-3 5.6 % 01/19/2016 Unknown %Hba1C Gpt202 Gluc Ave 114 mg/dL 01/19/2016 Unknown Comp Metabolic Ahf256 NA 136 mEq/L 01/19/2016 Unkn own Comp Metabolic Geq466 K 4.1 mEq/L 01/19/2016 Unkn own Comp Metabolic Ohk284 CL 100 mEq/L 01/19/2016 Unkn own Comp Metabolic Lku977 CO2 32.0 mEq/L 01/19/2016 Unk nown Comp Metabolic Lln851 ANION GAP 8 01/19/2016 Unkn own Comp Metabolic Duk287 GLUCOSE 96 mg/dL 01/19/2016 Unkn own Comp Metabolic Ejv645 Creat 0.9 mg/dL 01/19/2016 Unkn own Comp Metabolic Npd632 eGFR 68 ml/min/1.73m2 01/19/20 16 Unknown Comp Metabolic Xoo997 BUN 19 mg/dL 01/19/2016 Unkn own Comp Metabolic Jam998 B/C Ratio 20.9 Ratio 01/19/2016 Unk nown Comp Metabolic Vxw467 CALCIUM 9.4 mg/dL 01/19/2016 Unkn own Comp Metabolic Wbs183 ALK PHOS 59 U/L 01/19/2016 Unkn own Comp Metabolic Yuz145 AST(SGOT) 15 U/L 01/19/2016 Unkn own Comp Metabolic Fov836 ALT(SGPT) 15 U/L 01/19/2016 Unkn own Comp Metabolic Duh289 BILI T 0.6 mg/dL 01/19/2016 Unkn own Comp Metabolic Mhg572 ALBUMIN 3.9 g/dL 01/19/2016 Unkn own Comp Metabolic Lma836 TPRO 6.8 g/dL 01/19/2016 Unkn own Comp Metabolic Dmq936 GLOB 2.9 g/dL 01/19/2016 Unkn own Comp Metabolic Fzf848 A/G Ratio 1.4 Ratio 01/19/2016 Unkn own Comp Metabolic Cnq000 Osmo 274 mOsmo 01/19/2016 Unkn own Tsh Ord6 hTSH II 1.47 uIU/mL 01/19/2016 Unknown %Hba1C Jba180 % HbA1c 74351-5 5.9 % 05/30/2015 Unknown %Hba1C Bax346 Gluc Ave 123 mg/dL 05/30/2015 Unknown Tsh Ord6 hTSH II 1.51 uIU/mL 02/27/2015 Unknown Comp Metabolic Myk948 NA 134 mEq/L 02/27/2015 Unkn own Comp Metabolic Ebe247 K 4.3 mEq/L 02/27/2015 Unkn own Comp Metabolic Pxc613 CL 102 mEq/L 02/27/2015 Unkn own Comp Metabolic Pyf486 CO2 24.0 mEq/L 02/27/2015 Unk nown Comp Metabolic Nep909 ANION GAP 12 02/27/2015 Unkn own Comp Metabolic Ryb766 GLUCOSE 131 mg/dL 02/27/2015 Unkn own Comp Metabolic Bcp887 Creat 1.1 mg/dL 02/27/2015 Unkn own Comp Metabolic Ycm072 eGFR 57 ml/min/1.73m2 02/28/20 15 Unknown Comp Metabolic Dwk668 BUN 17 mg/dL 02/27/2015 Unkn own Comp Metabolic Bgu398 B/C Ratio 16.2 Ratio 02/27/2015 Unk nown Comp Metabolic Vya083 CALCIUM 9.4 mg/dL 02/27/2015 Unkn own Comp Metabolic Eyl666 ALK PHOS 73 U/L 02/27/2015 Unkn own Comp Metabolic Xjy985 AST(SGOT) 18 U/L 02/27/2015 Unkn own Comp Metabolic Gpu995 ALT(SGPT) 17 U/L 02/27/2015 Unkn own Comp Metabolic Lad297 BILI T 0.8 mg/dL 02/27/2015 Unkn own Comp Metabolic Pqn848 ALBUMIN 3.9 g/dL 02/27/2015 Unkn own Comp Metabolic Bkb446 TPRO 7.2 g/dL 02/27/2015 Unkn own Comp Metabolic Hwk087 GLOB 3.3 g/dL 02/27/2015 Unkn own Comp Metabolic Fcr677 A/G Ratio 1.2 Ratio 02/27/2015 Unkn own Comp Metabolic Nan225 Osmo 272 mOsmo 02/27/2015 Unkn own Lipid Ord30 CHOL 197 mg/dL 02/27/2015 Unknown Lipid Ord30 HDL 41.0 mg/dl 02/27/2015 Unknown Lipid Ord30 TRIG 137 mg/dL 02/27/2015 Unknown Lipid Ord30 LDL 129 mg/dL 02/27/2015 Unknown Lipid Ord30 C/HDL 4.8 Ratio 02/27/2015 Unknown Free T4 Gmr823 FREE T4 1.10 ng/dL 02/27/2015 Unknown Vitamin D 25 Oh Zrc3675 VITAMIN D, 25 HYDROXY 10.95 ng/mL 02/27/2015 [...] RDW 14.9 % 02/27/20 15 Unknown %Hba1C Qhr638 % HbA1c 85519-8 7.3 % 02/26/2015 Unknown %Hba1C Zrg265 Gluc Ave 163 mg/dL 02/26/2015 Unknown Procedures Procedure Codes Date SHIRA, PER 250 MG CPT-4: J0696 05/06/2017 TRIAMCINOLONE ACET INJ NOS 10 mg CPT-4: J3301 018 Vital Signs Date Vital 08/05/2020 Blood Pressure 1: 142/78 Code: 8480-6 BMI: 50.9 Code: 27904-5 Heart Rate 1: 87 bpm Height: 5'8" Code: 8302-2 SpO2: 98% Temperature: 3 6.2 (C) / 97.1 (F) Weight: 335 lbs Code: 52187-6 03/24/2020 Blood Pressure 1: 132/74 Code: 8480-6 BMI: 51.7 Code: 22859-4 Heart Rate 1: 90 bpm Height: 5'8" Code: 8302-2 Respiratory Rate: 15 bpm SpO2: 95% Temperature: 36.4 (C) / 97.5 (F) Weight: 340 lbs Code: 65684-4 12/26/2018 BMI: 52.6 Code: 46211-2 Heart Rate 1: 80 bpm Hei ght: 5'8" Code: 8302-2 Respiratory Rate: 16 bpm SpO2: 98% Weight: 346 lbs Code: 55732-5 05/25/2018 Blood Pressure 1: 122/68 Code: 8480-6 BMI: 52.6 Code: 84662-3 Heart Rate 1: 69 bpm Height: 5'8" Code: 8302-2 SpO2: 96% Weight: 346 lb s Code: 49810-5 05/06/2017 Blood Pressure 1: 134/76 Code: 8480-6 Heart Rate 1: 84 bpm Height: 5'8" Code: 8302-2 SpO2: 96% Temperature: 36.6 (C) / 97.8 (F) Weight: Code: 68180-8 03/02/2017 Blood Pressure 1: 132/72 Code: 8480-6 BMI: 51.2 Code: 04118-7 Heart Rate 1: 67 bpm Height: 5'8" Code: 8302-2 SpO2: 98% Weight: 337 lb s Code: 13710-7 10/06/2016 Blood Pressure 1: 128/76 Code: 8480-6 BMI: 50.9 Code: 22534-5 Heart Rate 1: 70 bpm Height: 5'8" Code: 8302-2 SpO2: 98% Weight: 335 lb s Code: 27479-5 01/15/2016 Blood Pressure 1: 130/72 Code: 8480-6 BMI: 49.3 Code: 29174-2 Heart Rate 1: 68 bpm Height: 5'8" Code: 8302-2 SpO2: 98% Weight: 324 lb s Code: 28937-2 05/29/2015 Blood Pressure 1: 136/80 Code: 8480-6 BMI: 52.2 Code: 01952-3 Heart Rate 1: 69 bpm Height: 5'8" Code: 8302-2 SpO2: 97% Weight: 343 lb s Code: 82091-4 03/31/2015 Blood Pressure 1: 136/78 Code: 8480-6 BMI: 53.4 Code: 69313-2 Heart Rate 1: 69 bpm Height: 5'8" Code: 8302-2 SpO2: 96% Weight: 351 lb s Code: 24940-1 02/26/2015 Blood Pressure 1: 128/80 Code: 8480-6 BMI: 56.3 Code: 56876-1 Heart Rate 1: 79 bpm Height: 5'8" Code: 8302-2 SpO2: 96% Weight: 370 lb s Code: 84457-2 Functional Status No Functional Status data Reason For Visit Reason For Visit Effective Dates Notes rash 08/05/2020 diabetes mellitus 03/24/2020 diabetes mellitus 12/26/2018 diabetes mellitus 05/25/2018 fever 05/06/2017 diabetes mellitus 03/02/2017 diabetes mellitus 10/06/2016 diabetes mellitus 01/15/2016 fatigue 05/29/2015 fatigue 03/31/2015 fatigue 02/26/2015 Encounters Encounter Performer Location Codes Date ) 45063 EST. PATIENT, LEVEL III Diagnosis: Superficial phlebitis and thrombophlebitis of left leg[ICD10: I80.02] Deisy Garcia MD, [facility] CPT-4: 58476 08/06/19 21 ([id number]) PREV VISIT EST AGE 40-64 Diagnosis: Encounter for general adult medical examination with abnormal findings[ICD10: Z00.01] Divya Garcia MD, [facility] CPT-4: 06050 03/24/2020 [id number]) [id number] EST. PATIENT, LEVEL IV Diagnosis: Type 2 diabetes mellitus without complications[ICD10: E11.9] Diagnosis: Mastodynia[ICD10: N64.4] Diagnosis: Pain in left knee[ICD10: M25.562] Diagnosis: Bilateral primary osteoarthritis of knee[ICD10: M17.0] Divya Garcia MD, [facility] CPT-4: 13699 12/26/2018 ([id number]) PREV VISIT EST AGE 40-64 Diagnosis: Encounter for general adult medical examination with abnormal findings[ICD10: Z00.01] Divya Garcia MD, [facility] CPT-4: 09335 05/25/2018 53952 EST. PATIENT, LEVEL III Diagnosis: Other malaise[ICD10: R53.81] Diagnosis: Fever, unspecified[ICD10: R50.9] Diagnosis: Acute laryngopharyngitis[ICD10: J06.0] Norma Terrell MD, [facility] CPT-4: 44340 05/06/2017 [id number]) [id number] EST. PATIENT, LEVEL IV Diagnosis: Type 2 diabetes mellitus without complications[ICD10: E11.9] Diagnosis: Nontoxic multinodular goiter[ICD10: E04.2] Diagnosis: Morbid (severe) obesity due to excess calories[ICD10: E66.01] Diagnosis: Nonscarring hair loss, unspecified[ICD10: L65.9] [facility] CPT-4: 84692 03/02/2017 ([id number]) PREV VISIT EST AGE 40-64 Diagnosis: Encounter for general adult medical examination with abnormal findings[ICD10: Z00.01] [facility] CPT-4: 44351 10/06/2016 ([id number]) 55676 EST. PATIENT, LEVEL IV Diagnosis: Type 2 diabetes mellitus without complications[ICD10: E11.9] Diagnosis: Morbid (severe) obesity due to excess calories[ICD10: E66.01] Diagnosis: Vitamin D deficiency, unspecified[ICD10: E55.9] Diagnosis: Nontoxic multinodular goiter[ICD10: E04.2] [facility] CPT-4: 58686 01/15/2016 ([id number]) 97898 EST. PATIENT, LEVEL III Diagnosis: Type 2 diabetes mellitus without complications[ICD10: E11.9] [facility] CPT-4: 12510 05/29/2015 [id number]) 19052 EST. PATIENT, LEVEL III Diagnosis: Type 2 diabetes mellitus without complications[ICD10: E11.9] Diagnosis: Vitamin D deficiency, unspecified[ICD10: E55.9] [facility] CPT-4: 37238 03/31/2015 ([id number]) PREV VISIT NEW AGE 40-64 Diagnosis: Encounter for general adult medical examination with abnormal findings[ICD10: Z00.01] [facility] CPT-4: 37879 02/26/2015 Plan of Care Planned Activity Notes Codes Status Date Appointment: [phone] [place] [place] (15 min) Moderate 12/22/2020 Appointment: [phone] [place] [place] ([place] min) Moderate 11/06/2020 Appointment: [phone] [place] [place] ([place] min) Moderate 10/15/2020 Appointment: Divya Garcia WPtel: [phone] [facility] [place] (15 min) Moderate 09/15/2020 Visit Plan: [...] going today. 08/05/2020 Appointment: Deisy Lowe WPtel: [phone] [place] (30 min) Complex 08/05/2020 Patient Education: [...] augment sleep. 03/24/2020 Appointment: Divya Garcia WPtel: [facility] [place] [place] (15 min) Moderate 03/24/2020 Patient Education: Patient Medication Summary Completed 03/24/2020 Patient Education: Diabetes Completed 03/24/2020 Appointment: Divya Garcia WPtel: [facility] [place] [place] (15 min) Moderate 03/06/2020 Appointment: Divya Garcia WPtel: [facility] [place] (15 min) Moderate 02/06/2019 Visit Plan: [...] pharmacy. 12/26/2018 Appointment: Divya Garcia WPtel: [facility] [place] [place] (15 min) Moderate 12/26/2018 Patient Education: Patient Medication Summary Completed 12/26/2018 Patient Education: Diabetes Completed 12/26/2018 Care Plan: Unilateral DIAGNOSTICMAMMOGRAPHYDIGITAL LOINC : 65976-9 Pending 12/26/2018 Patient Education: Patient Medication Summary Completed 12/14/2018 Appointment: Divya Garcia WPtel: [address] [place], [place] [id number] [place] (15 min) Moderate 12/13/2018 Visit Plan: [...] Free T4 05/25/2018 Appointment: Divya Garcia WPtel: [address] [place], [place] [address] [place] (15 min) Moderate 05/25/2018 Patient Education: Patient Medication Summary Completed 05/25/2018 Patient Education: Obesity Completed 0 05/25/2018 Appointment: Divya Garcia WPtel: [facility] [place] [place] (15 min) Moderate 07/11/2017 Appointment: Divya Garcia WPtel: [phone] [facility] (15 min) Moderate 06/28/2017 Visit Plan: URI [...] spray. 05/06/2017 Appointment: Norma Isbell WPtel: [phone] [facility]66[facility] (15 min) Moderate 05/06/2017 Patient Education: [...] ferritin, ESR 03/02/2017 Appointment: Divya Garcia WPtel: [phone] [facility] (15 min) Moderate 03/02/2017 Patient Education: Patient Medication Summary Completed 03/02/2017 Patient Education: Obesity Completed 1 05/02/2016 Care Plan: Iron Pending 03/02/2017 Appointment: Divya Garcia WPtel: [phone] [facility] [place] [place] (15 min) Moderate 01/31/2017 Visit Plan: Well [...] the patient. 10/06/2016 Appointment: Divya Garcia WPtel: [phone] [facility] [place] [place] (15 min) Moderate 10/06/2016 Patient Education: Patient Medication Summary Completed 10/06/2016 Patient Education: Obesity Completed 0 10/06/2016 Appointment: Divya Garcia WPtel: [phone] [facility] [place] [place] (15 min) Moderate 09/15/2016 Appointment: Divya Garcia WPtel: [facility] [place] (15 min) Moderate 08/16/2016 Appointment: Divya Garcia WPtel: [phone] [facility] [place] [place] (15 min) Moderate 07/15/2016 Patient Education: Patient Medication Summary Completed 01/27/2016 Care Plan: SCREENINGMAMMOGRAPHYDIGITAL L OINC : 11848-6 Pending 01/27/2016 Visit Plan: Diabetes Mellitus - [...] labs 01/15/2016 Appointment: Divya Garcia WPtel: [phone] (15 min) Moderate 01/15/2016 Patient Education: Patient Medication Summary Completed 01/15/2016 Patient Education: Obesity Completed 0 01/15/2016 Appointment: Divya Garcia WPtel: [facility] (15 min) Moderate 08/26/2015 Visit Plan: Diabetes [...] belviq 05/29/2015 Appointment: Divya Garcia WPtel: [phone] [facility] [place] (15 min) Moderate 05/29/2015 Patient Education: [...] controlled. 03/31/2015 Appointment: Divya Garcia WPtel: [phone] [facility] [place] (15 min) Moderate 03/31/2015 Patient Education: Patient [...] levels. 02/26/2015 Appointment: Divya Garcia WPtel: [phone] [facility] [place] [place] ([place]) New Patient 02/26/2015 Patient Education: [...]
--- OUTSIDE RECORDS SUMMARY | 2020-12-30 12:40 | XMS REPORT | CCD ---
Author Author Cecilia Garcia Organization Divya Garcia MD, 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 Never smoker 02/26/[address]: 950121924 Never drinks alcohol 2014 Allergies, Adverse Reactions, Alerts Substance Reaction Codes Entered Date Inactivated Date Status * OTHER REACTION - SEE ANSWER BOX valtrex- causes rash Unknown 02/26/2015 No Inactive Date Active Problems Condition Codes Effective Dates Condition Status Superficial thrombophlebitis ICD-10: I80.9 ICD-9: 451.9 08/05/2020 [...] Start Date Stop Date Status Fill Instructions Diflucan 150 mg tablet RxNorm: 564624 Take 1 Tablet(s) Oral jeffy ry day 12/04/2020 12/04/2020 Inactive Diflucan 150 mg tablet RxNorm: 089480 Take 1 Tablet(s) Oral jeffy ry day 12/04/2020 12/10/2020 Active cephalexin 500 mg tablet RxNorm: 797376 1 Tablet(s) Oral three times a day 08/05/2020 08/12/2020 Inactive metformin 500 mg tablet RxNorm: 684073 TKAE 1/2 TABLET BY MOUTH TWICE DAILY 05/12/2020 02/05/2021 Active Vitamin D2 1,250 mcg (50,000 unit) capsule RxNorm: 5006450 1 Capsule(s) Oral once a week 04/15/2020 07/14/2020 Inactive tramadol 50 mg tablet RxNorm: 758816 1 Tablet(s) Oral t hree times a day as needed arthritis pain 03/24/2020 07/21/2020 Inactive metformin 500 mg tablet RxNorm: 618848 TKAE 1/2 TABLET BY MOUTH TWICE DAILY 02/11/2020 05/10/2020 Inactive metformin 500 mg tablet RxNorm: 490345 TABLET(S) TAKE 1 /2 TABLET BY MOUTH TWICE DAILY 07/12/2019 02/10/2020 Inactive metformin 500 mg tablet RxNorm: 056720 TABLET(S) TAKE 1 /2 TABLET BY MOUTH TWICE DAILY 06/19/2019 07/11/2019 Inactive Keflex 500 mg capsule RxNorm: 584731 1 Capsule(s) Oral three ti mes a day 05/03/2019 05/02/2019 Inactive cephalexin 500 mg tablet RxNorm: 758996 1 Tablet(s) Oral three times a day 05/03/2019 05/10/2019 Inactive interactions reviewe d, fill the medication as written please Bactrim DS 800 mg-160 mg tablet RxNorm: 457704 1 Tablet(s) Oral two times a day 03/23/2019 03/22/2019 Inactive Bactrim DS 800 mg-160 mg tablet RxNorm: 376051 1 Tablet(s) Oral two times a day 03/23/2019 04/01/2019 Inactive Vitamin D3 5,000 unit tablet RxNorm: 805859 1 Tablet(s) PO daily No Stop Date Active Voltaren 1 % topical gel RxNorm: 165042 2 Gram(s) TOP QID 12/26/2018 04/24/2019 Inactive metformin 500 mg tablet RxNorm: 256006 TABLET(S) TAKE 1 /2 TABLET BY MOUTH TWICE DAILY 10/30/2018 06/18/2019 Inactive metformin 500 mg tablet RxNorm: 004012 TABLET(S) TAKE 1 /2 TABLET BY MOUTH TWICE DAILY 05/18/2018 10/29/2018 Inactive metformin 500 mg tablet RxNorm: 660201 Tablet(s) TAKE 1 /2 TABLET BY MOUTH TWICE DAILY 10/13/2017 04/10/2018 Inactive metformin 500 mg tablet RxNorm: 880734 TAKE 1/2 TABLET BY MOUTH TWICE DAILY 09/02/2017 10/12/2017 Inactive Phenergan with Codeine Syrup RxNorm: 5-10 Milliliter(s) PO QID as needed 05/06/2017 10/29/2018 Inactive Kenalog 40 mg/mL suspension for injection RxNorm: 9204421 1 Mill iliter(s) Inj 05/06/2017 05/06/2017 Inactive Tamiflu 75 mg capsule RxNorm: 390177 1 Capsule(s) PO BID 05/06/2017 0 05/10/2017 Inactive prednisone 20 mg tablet RxNorm: 924031 2 Tablet(s) PO daily 018 05/10/2017 Inactive cefdinir 300 mg capsule RxNorm: 778276 1 Capsule(s) PO BID 05/06/19 18 05/15/2017 Inactive Zithromax Z-Xavier 250 mg tablet RxNorm: 126667 1 Tablet(s) PO UD 04/2505/17/2018 Inactive ceftriaxone 500 mg solution for injection RxNorm: 3508000 1 Mill iliter(s) Inj 05/06/2017 05/06/2017 Inactive metformin 500 mg tablet RxNorm: 289959 TAKE 1/2 TABLET BY MOUTH TWICE DAILY 11/29/2016 10/12/2017 Inactive Vitamin D2 50,000 unit capsule RxNorm: 246578 1 Capsule(s) PO QW 04/08/2017 Inactive hydrochlorothiazide 25 mg tablet RxNorm: 419152 1 Table t(s) PO daily as needed edema 10/06/2016 02/02/2017 Inactive potassium chloride ER 10 mEq tablet,extended release RxNorm: 376210 1 Tablet(s) PO daily as needed when taking hctz 10/06/2016 02/02/2017 Inactive metformin 500 mg tablet RxNorm: 145444 1/2 Tablet(s) PO BID 017 10/12/2017 Inactive prednisone 20 mg tablet RxNorm: 788208 2 Tablet(s) PO P RN at onset of exposure to insect bite 10/06/2016 12/25/2018 Inactive tramadol 50 mg tablet RxNorm: 153570 1 Tablet(s) PO TID as needed arthritis pain 10/06/2016 02/02/2017 Inactive metformin 500 mg tablet RxNorm: 592503 1/2 TABLET(S) PO BID 016 10/05/2016 Inactive Vitamin D2 50,000 unit capsule RxNorm: 071591 1 Capsule(s) PO QW 08/26/2015 Inactive Vitamin D3 5,000 unit tablet RxNorm: 652103 1 Tablet(s) PO daily 01/14/2016 Inactive metformin 500 mg tablet RxNorm: 984407 1/2 Tablet(s) PO BID 015 03/02/2015 Inactive Vitamin D2 50,000 unit capsule RxNorm: 172327 1 Capsule(s) PO QW 05/28/2015 Inactive metformin 500 mg tablet RxNorm: 157163 1/2 Tablet(s) PO BID 015 02/25/2016 Inactive Vitamin D2 50,000 unit capsule RxNorm: 651565 1 Capsule(s) PO QW 03/02/2015 Inactive Xiidra 5 % eye drops in a dropperette RxNorm: 6222934 1 ophthalm ic (eye) BID 12/26/2018 Active Vitamin D3 1,000 unit tablet RxNorm: 763106 1 Tablet(s) PO daily 12/25/2018 Inactive Medication Administered Medication Codes Instructions Start Date Status ceftriaxone 500 mg solution for injection RxNorm: 4771982 1Milli liter 05/06/2017 No longer Active Kenalog 40 mg/mL suspension for injection RxNorm: 2096357 1Milli liter 05/06/2017 No longer Active Immunizations Vaccine Codes Date Status Influenza CVX: 135 01/22/2015 Tetanus, Diptheria, Pertussis CVX: 04/25/2012 Tetanus/Diptheria CVX: 04/25/2012 Results Observation Observation Code Item Item Code Result Date S ervice Location Comp Metabolic Maw521 NA 140 mEq/L 04/10/2020 Unkn own Comp Metabolic Ybx677 K 4.4 mEq/L 04/10/2020 Unkn own Comp Metabolic Ewq341 CL 101 mEq/L 04/10/2020 Unkn own Comp Metabolic Jkh827 CO2 31.0 mEq/L 04/10/2020 Unk nown Comp Metabolic Xqz094 ANION GAP 12 04/10/2020 Unkn own Comp Metabolic Sze442 GLUCOSE 105 mg/dL 04/10/2020 Unkn own Comp Metabolic Rqe458 Creat 0.9 mg/dL 04/10/2020 Unkn own Comp Metabolic Zjb590 eGFR 66 ml/min/1.73m2 04/10/20 20 Unknown Comp Metabolic Vtw898 BUN 18 mg/dL 04/10/2020 Unkn own Comp Metabolic Nmf492 B/C Ratio 19.6 Ratio 04/10/2020 Unk nown Comp Metabolic Kyr035 CALCIUM 9.3 mg/dL 04/10/2020 Unkn own Comp Metabolic Wxh499 ALK PHOS 64 U/L 04/10/2020 Unkn own Comp Metabolic Sfz695 AST(SGOT) 14 U/L 04/10/2020 Unkn own Comp Metabolic Xwm594 ALT(SGPT) 13 U/L 04/10/2020 Unkn own Comp Metabolic Bgp225 BILI T 0.5 mg/dL 04/10/2020 Unkn own Comp Metabolic Gfq364 ALBUMIN 3.8 g/dL 04/10/2020 Unkn own Comp Metabolic Bqx069 TPRO 6.8 g/dL 04/10/2020 Unkn own Comp Metabolic Ktn294 GLOB 3.0 g/dL 04/10/2020 Unkn own Comp Metabolic Kmc692 A/G Ratio 1.2 Ratio 04/10/2020 Unkn own Comp Metabolic Eug143 Osmo 282 mOsmo 04/10/2020 Unkn own Tsh Ord6 TSH (3rd IS) 1.67 uIU/mL 04/10/2020 Unkn own %Hba1C Qlz462 % HbA1c 00919-7 6.0 % 04/10/2020 Unknown %Hba1C Ykd011 Gluc Ave 126 mg/dL 04/10/2020 Unknown Cbc [...] Cbc With Differential Ord2 MCH 31.2 pg 12/17/20 20 Unknown Cbc With Differential Ord2 Allen% 7.3 % 04/10/20 Unknown Cbc With Differential Ord2 Eos% 1.6 % 04/10/20 Unknown Cbc With Differential Ord2 MCHC 32.5 pg 04/10/20 Unknown Cbc With Differential Ord2 PLT 316 K/ul 04/10/20 Unknown Cbc With Differential Ord2 Baso% 0.4 % 04/10/20 Unknown Cbc With Differential Ord2 RDW 14.1 % 04/10/20 Unknown Cbc With Differential Ord2 Neut ABS# 6.28 K/ul 04/10/20 Unknown Cbc With Differential Ord2 Lymph ABS# 2.22 K/ul 020 Unknown Cbc With Differential Ord2 Allen ABS# 0.7 K/ul 04/10/20 Unknown Cbc With [...] Ratio 04/10/2020 Unknown Vitamin D 25 Oh Rwr1644 VITAMIN D, 25 HYDROXY 17.87 ng/mL 04/10/2020 Unknown %Hba1C Wxg990 % HbA1c 45620-1 6.0 % 12/22/2018 Unknown %Hba1C Wdc289 Gluc Ave 126 mg/dL 12/22/2018 Unknown Microalbumin Mcj776 MicroAlb <0.7 mg/dL 05/26/2018 Unkno wn Comp Metabolic Pnl786 NA 139 mEq/L 05/26/2018 Unkn own Comp Metabolic Dwc760 K 4.7 mEq/L 05/26/2018 Unkn own Comp Metabolic Dzj111 CL 101 mEq/L 05/26/2018 Unkn own Comp Metabolic Hil311 CO2 32.0 mEq/L 05/26/2018 Unk nown Comp Metabolic Bve068 ANION GAP 11 05/26/2018 Unkn own Comp Metabolic Dmf734 GLUCOSE 98 mg/dL 05/26/2018 Unkn own Comp Metabolic Pit890 Creat 0.9 mg/dL 05/26/2018 Unkn own Comp Metabolic Jpg890 eGFR 69 ml/min/1.73m2 05/26/19 19 Unknown Comp Metabolic Xjp200 BUN 17 mg/dL 05/26/2018 Unkn own Comp Metabolic Mug473 B/C Ratio 19.1 Ratio 05/26/2018 Unk nown Comp Metabolic Xvf059 CALCIUM 9.3 mg/dL 05/26/2018 Unkn own Comp Metabolic Nde703 ALK PHOS 61 U/L 05/26/2018 Unkn own Comp Metabolic Jue355 AST(SGOT) 14 U/L 05/26/2018 Unkn own Comp Metabolic Vwj172 ALT(SGPT) 14 U/L 05/26/2018 Unkn own Comp Metabolic Wjz564 BILI T 0.7 mg/dL 05/26/2018 Unkn own Comp Metabolic Mbx234 ALBUMIN 3.8 g/dL 05/26/2018 Unkn own Comp Metabolic Khm117 TPRO 6.9 g/dL 05/26/2018 Unkn own Comp Metabolic Lua342 GLOB 3.1 g/dL 05/26/2018 Unkn own Comp Metabolic Hgr506 A/G Ratio 1.2 Ratio 05/26/2018 Unkn own Comp Metabolic Owp255 Osmo 279 mOsmo 05/26/2018 Unkn own Lipid [...] 05/26/19 19 Unknown Cbc With Differential Ord2 Allen% 8.5 % 05/26/19 19 Unknown Cbc With [...] K/ul 019 Unknown Cbc With Differential Ord2 Allen ABS# 0.7 K/ul 05/26/19 19 Unknown Cbc With Differential Ord2 Eos ABS# 0.2 K/ul 05/26/19 19 Unknown Cbc With Differential Ord2 Baso ABS# 0.1 K/ul 05/26/19 19 Unknown Tsh Ord6 TSH (3rd IS) 1.58 uIU/mL 05/26/2018 Unkn own %Hba1C Fqq144 % HbA1c 06019-0 5.8 % 05/26/2018 Unknown %Hba1C Zlb769 Gluc Ave 120 mg/dL 05/26/2018 Unknown C A/B FLU 1467161 Influenza A Scr Negative 05/06/2017 Unk nown C A/B FLU 7922774 Influenza B Scr Negative 05/06/2017 Unk nown C A/B FLU 0615476 Influenza Intrp B AG:PRID:PT:NOSE:NOM:IF See Footnote 05/06/2017 Unknown Free T4 Kwx633 FREE T4 1.03 ng/dL 03/02/2017 Unknown %Hba1C Zrj579 % HbA1c 29401-3 5.4 % 03/02/2017 Unknown %Hba1C Qpd763 Gluc Ave 108 mg/dL 03/02/2017 Unknown Comp Metabolic Niz554 NA 140 mEq/L 03/02/2017 Unkn own Comp Metabolic Uwc917 K 4.4 mEq/L 03/02/2017 Unkn own Comp Metabolic Ckq770 CL 101 mEq/L 03/02/2017 Unkn own Comp Metabolic Dom878 CO2 29.0 mEq/L 03/02/2017 Unk nown Comp Metabolic Cie496 ANION GAP 14 03/02/2017 Unkn own Comp Metabolic Bze954 GLUCOSE 94 mg/dL 03/02/2017 Unkn own Comp Metabolic Hsc628 Creat 1.0 mg/dL 03/02/2017 Unkn own Comp Metabolic Dog613 eGFR 63 ml/min/1.73m2 03/02/20 17 Unknown Comp Metabolic Qcu750 BUN 20 mg/dL 03/02/2017 Unkn own Comp Metabolic Tpz923 B/C Ratio 20.6 Ratio 03/02/2017 Unk nown Comp Metabolic Sie103 CALCIUM 9.2 mg/dL 03/02/2017 Unkn own Comp Metabolic Mvh795 ALK PHOS 67 U/L 03/02/2017 Unkn own Comp Metabolic Snw451 AST(SGOT) 17 U/L 03/02/2017 Unkn own Comp Metabolic Eid685 ALT(SGPT) 17 U/L 03/02/2017 Unkn own Comp Metabolic Cko314 BILI T 0.5 mg/dL 03/02/2017 Unkn own Comp Metabolic Gyu135 ALBUMIN 3.9 g/dL 03/02/2017 Unkn own Comp Metabolic Ggp749 TPRO 6.8 g/dL 03/02/2017 Unkn own Comp Metabolic Wnx110 GLOB 2.9 g/dL 03/02/2017 Unkn own Comp Metabolic Jzs887 A/G Ratio 1.4 Ratio 03/02/2017 Unkn own Comp Metabolic Wkx571 Osmo 282 mOsmo 03/02/2017 Unkn own Cbc [...] 03/02/20 17 Unknown Cbc With Differential Ord2 Allen% 8.3 % 03/02/20 17 Unknown Cbc With [...] K/ul 017 Unknown Cbc With Differential Ord2 Allen ABS# 0.8 K/ul 03/02/20 17 Unknown Cbc [...] Fe-%Sat 30.4 % 03/02/2017 Unknown Comp Metabolic Wum389 NA 140 mEq/L 10/11/2016 Unkn own Comp Metabolic Ege747 K 4.9 mEq/L 10/11/2016 Unkn own Comp Metabolic Kow413 CL 100 mEq/L 10/11/2016 Unkn own Comp Metabolic Pwz038 CO2 32.0 mEq/L 10/11/2016 Unk nown Comp Metabolic Zhz146 ANION GAP 13 10/11/2016 Unkn own Comp Metabolic Fik874 GLUCOSE 95 mg/dL 10/11/2016 Unkn own Comp Metabolic Gmo525 Creat 1.0 mg/dL 10/11/2016 Unkn own Comp Metabolic Act998 eGFR 64 ml/min/1.73m2 10/12/19 17 Unknown Comp Metabolic Iae591 BUN 17 mg/dL 10/11/2016 Unkn own Comp Metabolic Tzn417 B/C Ratio 17.9 Ratio 10/11/2016 Unk nown Comp Metabolic Mgo910 CALCIUM 9.5 mg/dL 10/11/2016 Unkn own Comp Metabolic Zxo967 ALK PHOS 65 U/L 10/11/2016 Unkn own Comp Metabolic Pdz573 AST(SGOT) 16 U/L 10/11/2016 Unkn own Comp Metabolic Caq286 ALT(SGPT) 16 U/L 10/11/2016 Unkn own Comp Metabolic Xac010 BILI T 0.6 mg/dL 10/11/2016 Unkn own Comp Metabolic Jgf282 ALBUMIN 3.8 g/dL 10/11/2016 Unkn own Comp Metabolic Yuz289 TPRO 6.7 g/dL 10/11/2016 Unkn own Comp Metabolic Xmt058 GLOB 2.9 g/dL 10/11/2016 Unkn own Comp Metabolic Nvz347 A/G Ratio 1.3 Ratio 10/11/2016 Unkn own Comp Metabolic Xkn808 Osmo 281 mOsmo 10/11/2016 Unkn own Cbc [...] 10/12/19 17 Unknown Cbc With Differential Ord2 Allen% 8.2 % 10/12/19 17 Unknown Cbc With [...] K/ul 017 Unknown Cbc With Differential Ord2 Allen ABS# 0.7 K/ul 10/12/19 17 Unknown Cbc With Differential Ord2 Eos ABS# 0.2 K/ul 10/12/19 17 Unknown Cbc With Differential Ord2 Baso ABS# 0.0 K/ul 10/12/19 17 Unknown Vitamin D 25 Oh Kno4178 VITAMIN D, 25 HYDROXY 14.10 ng/mL 10/11/2016 Unknown Lipid Ord30 CHOL 169 mg/dL 10/11/2016 Unknown Lipid Ord30 HDL 44.0 mg/dl 10/11/2016 Unknown Lipid Ord30 TRIG 139 mg/dL 10/11/2016 Unknown Lipid Ord30 LDL 97 mg/dL 10/11/2016 Unknown Lipid Ord30 C/HDL 3.8 Ratio 10/11/2016 Unknown %Hba1C Lia217 % HbA1c 73618-2 5.5 % 10/11/2016 Unknown %Hba1C Uoe965 Gluc Ave 111 mg/dL 10/11/2016 Unknown Tsh [...] 01/19/20 16 Unknown Cbc With Differential Ord2 Allen% 7.7 % 01/19/20 16 Unknown Cbc With [...] K/ul 016 Unknown Cbc With Differential Ord2 Allen ABS# 0.7 K/ul 01/19/20 16 Unknown Cbc [...] Ratio 01/19/2016 Unknown Vitamin D 25 Oh Rpn8449 VITAMIN D, 25 HYDROXY 33.57 ng/mL 01/19/2016 Unknown %Hba1C Due479 % HbA1c 55667-3 5.6 % 01/19/2016 Unknown %Hba1C Zgm163 Gluc Ave 114 mg/dL 01/19/2016 Unknown Comp Metabolic Rkh107 NA 136 mEq/L 01/19/2016 Unkn own Comp Metabolic Uhb536 K 4.1 mEq/L 01/19/2016 Unkn own Comp Metabolic Iry695 CL 100 mEq/L 01/19/2016 Unkn own Comp Metabolic Vie551 CO2 32.0 mEq/L 01/19/2016 Unk nown Comp Metabolic Iaj098 ANION GAP 8 01/19/2016 Unkn own Comp Metabolic Swb512 GLUCOSE 96 mg/dL 01/19/2016 Unkn own Comp Metabolic Vrb045 Creat 0.9 mg/dL 01/19/2016 Unkn own Comp Metabolic Zlf337 eGFR 68 ml/min/1.73m2 01/19/20 16 Unknown Comp Metabolic Wfc394 BUN 19 mg/dL 01/19/2016 Unkn own Comp Metabolic Zjo618 B/C Ratio 20.9 Ratio 01/19/2016 Unk nown Comp Metabolic Bov588 CALCIUM 9.4 mg/dL 01/19/2016 Unkn own Comp Metabolic Iuc572 ALK PHOS 59 U/L 01/19/2016 Unkn own Comp Metabolic Xfk910 AST(SGOT) 15 U/L 01/19/2016 Unkn own Comp Metabolic Wgy393 ALT(SGPT) 15 U/L 01/19/2016 Unkn own Comp Metabolic Pww432 BILI T 0.6 mg/dL 01/19/2016 Unkn own Comp Metabolic Nnw501 ALBUMIN 3.9 g/dL 01/19/2016 Unkn own Comp Metabolic Jjs047 TPRO 6.8 g/dL 01/19/2016 Unkn own Comp Metabolic Xrm614 GLOB 2.9 g/dL 01/19/2016 Unkn own Comp Metabolic Zuf142 A/G Ratio 1.4 Ratio 01/19/2016 Unkn own Comp Metabolic Rjm481 Osmo 274 mOsmo 01/19/2016 Unkn own Tsh Ord6 hTSH II 1.47 uIU/mL 01/19/2016 Unknown %Hba1C Bxs983 % HbA1c 69630-4 5.9 % 05/30/2015 Unknown %Hba1C Qlf272 Gluc Ave 123 mg/dL 05/30/2015 Unknown Tsh Ord6 hTSH II 1.51 uIU/mL 02/27/2015 Unknown Comp Metabolic Upt275 NA 134 mEq/L 02/27/2015 Unkn own Comp Metabolic Fpe760 K 4.3 mEq/L 02/27/2015 Unkn own Comp Metabolic Zty143 CL 102 mEq/L 02/27/2015 Unkn own Comp Metabolic Yqg532 CO2 24.0 mEq/L 02/27/2015 Unk nown Comp Metabolic Nvt162 ANION GAP 12 02/27/2015 Unkn own Comp Metabolic Dnp542 GLUCOSE 131 mg/dL 02/27/2015 Unkn own Comp Metabolic Pjr488 Creat 1.1 mg/dL 02/27/2015 Unkn own Comp Metabolic Nic173 eGFR 57 ml/min/1.73m2 02/28/20 15 Unknown Comp Metabolic Trj443 BUN 17 mg/dL 02/27/2015 Unkn own Comp Metabolic Xwm463 B/C Ratio 16.2 Ratio 02/27/2015 Unk nown Comp Metabolic Gnd763 CALCIUM 9.4 mg/dL 02/27/2015 Unkn own Comp Metabolic Yur922 ALK PHOS 73 U/L 02/27/2015 Unkn own Comp Metabolic Nuw546 AST(SGOT) 18 U/L 02/27/2015 Unkn own Comp Metabolic Scs556 ALT(SGPT) 17 U/L 02/27/2015 Unkn own Comp Metabolic Qlm155 BILI T 0.8 mg/dL 02/27/2015 Unkn own Comp Metabolic Lyr715 ALBUMIN 3.9 g/dL 02/27/2015 Unkn own Comp Metabolic Cqi630 TPRO 7.2 g/dL 02/27/2015 Unkn own Comp Metabolic Xnt697 GLOB 3.3 g/dL 02/27/2015 Unkn own Comp Metabolic Ukk625 A/G Ratio 1.2 Ratio 02/27/2015 Unkn own Comp Metabolic Ucr492 Osmo 272 mOsmo 02/27/2015 Unkn own Lipid Ord30 CHOL 197 mg/dL 02/27/2015 Unknown Lipid Ord30 HDL 41.0 mg/dl 02/27/2015 Unknown Lipid Ord30 TRIG 137 mg/dL 02/27/2015 Unknown Lipid Ord30 LDL 129 mg/dL 02/27/2015 Unknown Lipid Ord30 C/HDL 4.8 Ratio 02/27/2015 Unknown Free T4 Rof517 FREE T4 1.10 ng/dL 02/27/2015 Unknown Vitamin D 25 Oh Egh8689 VITAMIN D, 25 HYDROXY 10.95 ng/mL 02/27/2015 [...] RDW 14.9 % 02/27/20 15 Unknown %Hba1C Xsd113 % HbA1c 19717-4 7.3 % 02/26/2015 Unknown %Hba1C Fng739 Gluc Ave 163 mg/dL 02/26/2015 Unknown Procedures Procedure Codes Date ROCEPHIN, PER 250 MG CPT-4: J0696 05/06/2017 TRIAMCINOLONE ACET INJ NOS 10 mg CPT-4: J3301 018 Vital Signs Date Vital 08/05/2020 Blood Pressure 1: 142/78 Code: 8480-6 BMI: 50.9 Code: 29808-7 Heart Rate 1: 87 bpm Height: 5'8" Code: 8302-2 SpO2: 98% Temperature: 3 6.2 (C) / 97.1 (F) Weight: 335 lbs Code: 03859-1 03/24/2020 Blood Pressure 1: 132/74 Code: 8480-6 BMI: 51.7 Code: 33239-1 Heart Rate 1: 90 bpm Height: 5'8" Code: 8302-2 Respiratory Rate: 15 bpm SpO2: 95% Temperature: 36.4 (C) / 97.5 (F) Weight: 340 lbs Code: 05887-7 12/26/2018 BMI: 52.6 Code: 04402-9 Heart Rate 1: 80 bpm Hei ght: 5'8" Code: 8302-2 Respiratory Rate: 16 bpm SpO2: 98% Weight: 346 lbs Code: 76037-6 05/25/2018 Blood Pressure 1: 122/68 Code: 8480-6 BMI: 52.6 Code: 86042-5 Heart Rate 1: 69 bpm Height: 5'8" Code: 8302-2 SpO2: 96% Weight: 346 lb s Code: 46630-1 05/06/2017 Blood Pressure 1: 134/76 Code: 8480-6 Heart Rate 1: 84 bpm Height: 5'8" Code: 8302-2 SpO2: 96% Temperature: 36.6 (C) / 97.8 (F) Weight: Code: 61047-4 03/02/2017 Blood Pressure 1: 132/72 Code: 8480-6 BMI: 51.2 Code: 41460-1 Heart Rate 1: 67 bpm Height: 5'8" Code: 8302-2 SpO2: 98% Weight: 337 lb s Code: 29665-0 10/06/2016 Blood Pressure 1: 128/76 Code: 8480-6 BMI: 50.9 Code: 92413-4 Heart Rate 1: 70 bpm Height: 5'8" Code: 8302-2 SpO2: 98% Weight: 335 lb s Code: 04167-5 01/15/2016 Blood Pressure 1: 130/72 Code: 8480-6 BMI: 49.3 Code: 36808-4 Heart Rate 1: 68 bpm Height: 5'8" Code: 8302-2 SpO2: 98% Weight: 324 lb s Code: 49764-8 05/29/2015 Blood Pressure 1: 136/80 Code: 8480-6 BMI: 52.2 Code: 70770-6 Heart Rate 1: 69 bpm Height: 5'8" Code: 8302-2 SpO2: 97% Weight: 343 lb s Code: 20760-7 03/31/2015 Blood Pressure 1: 136/78 Code: 8480-6 BMI: 53.4 Code: 49837-4 Heart Rate 1: 69 bpm Height: 5'8" Code: 8302-2 SpO2: 96% Weight: 351 lb s Code: 69561-6 02/26/2015 Blood Pressure 1: 128/80 Code: 8480-6 BMI: 56.3 Code: 99959-2 Heart Rate 1: 79 bpm Height: 5'8" Code: 8302-2 SpO2: 96% Weight: 370 lb s Code: 87721-7 Functional Status No Functional Status data Reason For Visit Reason For Visit Effective Dates Notes rash 08/05/2020 diabetes mellitus 03/24/2020 diabetes mellitus 12/26/2018 diabetes mellitus 05/25/2018 fever 05/06/2017 diabetes mellitus 03/02/2017 diabetes mellitus 10/06/2016 diabetes mellitus 01/15/2016 fatigue 05/29/2015 fatigue 03/31/2015 fatigue 02/26/2015 Encounters Encounter Performer Location Codes Date ) 14227 EST. PATIENT, LEVEL III Diagnosis: Superficial phlebitis and thrombophlebitis of left leg[ICD10: I80.02] Deisy Garcia MD, [facility] CPT-4: 93266 08/06/19 ([id number]) PREV VISIT EST AGE 40-64 Diagnosis: Encounter for general adult medical examination with abnormal findings[ICD10: Z00.01] Divya Garcia MD, [facility] CPT-4: 37179 03/24/2020 ([id number]) 32802 EST. PATIENT, LEVEL IV Diagnosis: Type 2 diabetes mellitus without complications[ICD10: E11.9] Diagnosis: Mastodynia[ICD10: N64.4] Diagnosis: Pain in left knee[ICD10: M25.562] Diagnosis: Bilateral primary osteoarthritis of knee[ICD10: M17.0] Divya Garcia MD, [facility] CPT-4: 12718 12/26/2018 ([id number]) PREV VISIT EST AGE 40-64 Diagnosis: Encounter for general adult medical examination with abnormal findings[ICD10: Z00.01] Divya Garcia MD, [facility] CPT-4: 91248 05/25/2018 93317 EST. PATIENT, LEVEL III Diagnosis: Other malaise[ICD10: R53.81] Diagnosis: Fever, unspecified[ICD10: R50.9] Diagnosis: Acute laryngopharyngitis[ICD10: J06.0] Norma Terrell MD, [facility] CPT-4: 53858 05/06/2017 [id number]) 63475 EST. PATIENT, LEVEL IV Diagnosis: Type 2 diabetes mellitus without complications[ICD10: E11.9] Diagnosis: Nontoxic multinodular goiter[ICD10: E04.2] Diagnosis: Morbid (severe) obesity due to excess calories[ICD10: E66.01] Diagnosis: Nonscarring hair loss, unspecified[ICD10: L65.9] NAKUL Neely MD CPT-4: 55057 03/02/2017 ([id number]) PREV VISIT EST AGE 40-64 Diagnosis: Encounter for general adult medical examination with abnormal findings[ICD10: Z00.01] [facility] CPT-4: 00579 10/06/2016 ([id number]) 68115 EST. PATIENT, LEVEL IV Diagnosis: Type 2 diabetes mellitus without complications[ICD10: E11.9] Diagnosis: Morbid (severe) obesity due to excess calories[ICD10: E66.01] Diagnosis: Vitamin D deficiency, unspecified[ICD10: E55.9] Diagnosis: Nontoxic multinodular goiter[ICD10: E04.2] [facility] CPT-4: 75389 01/15/2016 ([id number]) 21163 EST. PATIENT, LEVEL III Diagnosis: Type 2 diabetes mellitus without complications[ICD10: E11.9] [facility] CPT-4: 67003 05/29/2015 ([id number]) 09656 EST. PATIENT, LEVEL III Diagnosis: Type 2 diabetes mellitus without complications[ICD10: E11.9] Diagnosis: Vitamin D deficiency, unspecified[ICD10: E55.9] [facility] CPT-4: 47153 03/31/2015 ([id number]) PREV VISIT NEW AGE 40-64 Diagnosis: Encounter for general adult medical examination with abnormal findings[ICD10: Z00.01] [facility] CPT-4: 72469 02/26/2015 Plan of Care Planned Activity Notes Codes Status Date Appointment: [facility] ([facility] Moderate 11/06/2020 Appointment: [phone] [facility] [place] (15 min) Moderate 10/15/2020 Appointment: Divya Garcia WPtel: [phone] [facility] [place] (15 min) Moderate 09/15/2020 Visit Plan: [...] today. 08/05/2020 [phone] [place] (30 min) Complex 08/05/2020 Patient [...] sleep. 03/24/2020 Appointment: [phone] [facility] [place] (15 min) Moderate 03/24/2020 Patient Education: Patient Medication Summary Completed 03/24/2020 Patient Education: Diabetes Completed 03/24/2020 [facility]ment: [facility] [phone] [facility] [place] ([facility] min) Moderate 03/06/2020 Appointment: Divya Garcia WPtel: [phone] [facility] [place] (15 min) Moderate 02/06/2019 Visit Plan: [...] the pharmacy. 12/26/2018 App[facility]ment: [facility] [phone] [facility] [place] ([facility] min) Moderate 12/26/2018 Patient Education: Patient Medication Summary Completed 12/26/2018 Patient Education: Diabetes Completed 12/26/2018 Care Plan: [facility] [id number] Pending 12/26/2018 Patient Education: Patient Medication Summary Completed 12/14/2018 Appointment: Divya Garcia [facility] [place] ([facility] min) Moderate 12/13/2018 Visit [...] Free T4 05/25/2018 Appointment: Div[facility] Garcia [facility] [place] ([facility] min) Moderate 05/25/2018 Patient Education: Patient Medication Summary Completed 05/25/2018 Patient Education: Obesity Completed 0 05/25/2018 Appointment: Divya Garcia [facility]el[facility] [place] ([facility] min) Moderate 07/11/2017 Appointment: Divya Garcia WPtel: [phone] [facility] (15 min) Moderate 06/28/2017 Visit [...] allergy spray. 05/06/2017 Appointment: Norma Isbell WPtel: [phone] (15 min) Moderate 05/06/2017 Patient Education: Patient [...] ferritin, ESR 03/02/2017 Appointment: Divya Garcia WPtel: [phone] [facility] (15 min) Moderate 03/02/2017 Patient Education: Patient Medication Summary Completed 03/02/2017 Patient Education: Obesity Completed 05/02/2016 Care Plan: Iron Pending 03/02/2017 Appointment: Div[phone] [place] (15 min) Moderate 01/31/2017 Visit Plan: [...] patient. 10/06/2016 Appointment: Div[facility]el[phone] [place] (15 min) Moderate 10/06/2016 Patient Education: Patient Medication Summary Completed 10/06/2016 Patient Education: Obesity Completed 0 10/06/2016 Appointment: Divya [facility]el[id number] [place] (15 min) Moderate 09/15/2016 Appointment: Divya Garcia [facility]el[phone] [place] (15 min) Moderate 08/16/2016 Appointment: Divya Garcia [facility]el[phone] [place] (15 min) Moderate 07/15/2016 Patient Education: Patient Medication Summary Completed 01/27/2016 Care Plan: SCREENINGMAMMOGRAPHYDIGITAL L OINC : [id number] Pending 01/27/2016 Visit Plan: Diabetes Mellitus - [...] -check labs 01/15/2016 Appointment: Divya Garcia WPtel: [phone] (15 min) Moderate 01/15/2016 Patient Education: Patient Medication Summary Completed 01/15/2016 Patient Education: Obesity Completed 0 01/15/2016 Appointment: Divya Garcia WPtel: [facility] [place] [phone] [place] (15 min) Moderate 08/26/2015 Visit Plan: [...] belviq 05/29/2015 Appointment: Divya Garcia WPtel: [phone] [facility] [place] (15 min) Moderate 05/29/2015 Patient Education: [...] controlled. 03/31/2015 Appointment: Divya Garcia [facility]el[phone] [id number] (15 min) Moderate 03/31/2015 Patient Education: Patient [...] glucose levels. 02/26/2015 Appointment: Divya Garcia [facility]el[phone] [place] (S) New Patient 02/26/2015 Patient [...]
[2020-12-30 13:00] VITALS: BP 113/82
[2020-12-30] MEDS ORDERED: LACT10SO33 PO (14:09)
[2020-12-30] MEDS ORDERED: METR-145 PO (14:09)
[2020-12-30] MEDS ORDERED: BUPR-168 PO (14:09)
[2020-12-30] MEDS ORDERED: ONDA4TAB11 PO (14:09)
[2020-12-30] MEDS ORDERED: CIPR500T5 PO (14:09)
[2020-12-30] MEDS ORDERED: HYDR-3817 PO (14:09)
[2020-12-30] MEDS: D5 NS 1000 ML IV SOLUTION 1,000 ML IV SCH ×2 (14:33→20:13)
[2020-12-30 14:36] LABS: BASOPHILS # (AUTO) 0.1 10^3/uL (0.0-0.1); BASOPHILS % (AUTO) 0 % (0-10); EOSINOPHILS % (AUTO) 0 % (0-10); HEMATOCRIT 39 % (35-52); HEMOGLOBIN 12.1 g/dL (11.5-16.0); LYMPHOCYTES # (AUTO) 1.3 10^3/uL (1.0-4.0); LYMPHOCYTES % (AUTO) 8 % (12-44); MEAN CORPUSCULAR HEMOGLOBIN 29 pg (25-34); MEAN CORPUSCULAR HGB CONC 31 g/dL (32-36); MEAN CORPUSCULAR VOLUME 92 fL (80-99); MEAN PLATELET VOLUME 10.4 fL (9.0-12.2); MONOCYTES # (AUTO) 1.2 10^3/uL (0.0-1.0); MONOCYTES % (AUTO) 7 % (0-12); NEUTROPHILS # (AUTO) 13.1 10^3/uL (1.8-7.8); NEUTROPHILS % (AUTO) 83 % (42-75); PLATELET COUNT 358 10^3/uL (130-400); WHITE BLOOD COUNT 15.8 10^3/uL (4.3-11.0)
[2020-12-30 14:47] LABS: POTASSIUM 4.2 MMOL/L (3.6-5.0)
[2020-12-30 14:49] LABS: CALCIUM 9.8 MG/DL (8.5-10.1)
[2020-12-30] MEDS ORDERED: morphine INJ 4 MG/ML 1 ML (VIAL/SYRINGE) ONE (14:49)
[2020-12-30 14:50] LABS: TOTAL PROTEIN 8.5 GM/DL (6.4-8.2)
[2020-12-30 14:52] LABS: BILIRUBIN,TOTAL 1.5 MG/DL (0.1-1.0)
[2020-12-30 14:53] LABS: CREATININE SERUM 0.94 MG/DL (0.60-1.30)
[2020-12-30] MEDS ORDERED: CATHETER FLUSH 10 ML SYR IV PRN (15:00)
[2020-12-30] MEDS ORDERED: FLEET ENEMA ADULT 1 EA BTL PR NR (15:00)
[2020-12-30] MEDS: morphine INJ 4 MG/ML 1 ML (VIAL/SYRINGE) IVP PRN ×2 (15:16→16:32)
[2020-12-30 15:24] LABS: LYMPHOCYTES % (MANUAL) 14 %; MONOCYTES % (MANUAL) 9 %; NEUTROPHILS % (MANUAL) 77 %; PLATELET CLUMPS SLIGHT
[2020-12-30 15:25] LABS: ERYTHROCYTE SEDIMENTATION RATE 79 MM/HR (0-30); STOMATOCYTES SLIGHT
[2020-12-30 15:30] VITALS: BP 120/78
--- NOTE | 2020-12-30 17:25 | CONSULTATION REPORT ---
DATE OF SERVICE: 12/30/2020 ATTENDING PRIMARY CARE PHYSICIAN: Divya Garcia MD. HISTORY OF PRESENT ILLNESS: The patient is a 60-year-old female known to us. She initially was seen for significant right upper abdominal quadrant pain for five days previous and this progressed to nausea and vomiting as well as diarrhea. An ultrasound was performed, which did show gallbladder wall thickening as well as pericholecystic fluid consistent with an acute cholecystitis. She was admitted and placed on IV antibiotics and on the following day, underwent a laparoscopic cholecystectomy. She was found to have a severely inflamed gallbladder as well as multiple stones. The patient was able to do well after surgery and was sent home the same day. She was seen a week later and the Errol-Olsen drain was serous and minimal and was removed. Approximately two months later, she presented with feelings of mild nausea as well as just feeling unwell. She had lab work drawn, which did show elevation of her total bilirubin. We then followed this and this continued to elevate. She was then referred to gastroenterology where an ERCP was performed, which showed multiple retained stones and she underwent a papillotomy and two stents placed, one in the common bile duct and the other in the pancreatic duct. She was admitted for IV antibiotics for a few more days and was then discharged home. She presented to her physician's office today with complaints of pain more in the left lateral abdomen. Upon further questioning, she reports that she has not had a bowel movement for approximately 20 days. PAST MEDICAL HISTORY: Right breast cancer, hypertension, history of acute cholecystitis and choledocholithiasis. PAST SURGICAL HISTORY: Right breast lumpectomy with radiation, orthopedic procedure. ALLERGIES: VALACYCLOVIR. MEDICATIONS: Atenolol 25 mg daily, hydrochlorothiazide 25 mg daily. SOCIAL HISTORY: Negative smoke, negative alcohol. FAMILY HISTORY: Noncontributory. REVIEW OF SYSTEMS: This is a well-nourished female, currently in no acute distress. She is not experiencing any shortness of breath or difficulty breathing. No chest pain, palpitations, diaphoresis. No nausea, vomiting; however, has had a lack of appetite for the past few weeks. She does have a crampy abdominal pain, more in the left lateral abdomen. She also has not had a bowel movement past 20 days. No fever, chills, no recent inadvertent weight loss. All other review of systems negative. PHYSICAL EXAMINATION: VITAL SIGNS: Temperature 35.3, blood pressure 120/70, pulse 91, respirations 18, and pulse ox 94% on room air. CHEST: Clear. Good breath sounds bilaterally. HEART: Regular, no murmurs. EXTREMITIES: No lower extremity edema, negative Homans sign. HEENT: No scleral icterus. NECK: No cervical lymphadenopathy. ABDOMEN: Soft, nondistended. There is pain along the left lateral abdomen and left upper abdominal quadrant. No peritoneal signs. No hernias. SKIN: Warm and dry. LABORATORY DATA: WBC 15.8, hemoglobin 12.1, hematocrit 39, and platelets 358. BUN 14, creatinine 0.94. Total bilirubin 1.5, AST 36, and alkaline phosphatase 195. ASSESSMENT AND PLAN: A 60-year-old female with constipation. She also has a small liver abscess, which has been followed and does have a slight elevation of white count and she is scheduled to undergo an MRI to evaluate any change in the abscess. If this has increased in size, she would likely need continued antibiotics. For now, she will receive two Fleet's enemas and we will also start up top with MiraLax on a b.i.d. basis. She may stay with clear liquids as well. However, if she does feel better, she may advance diet as tolerated. Job ID: [id number] DocumentID: [id number] Dictated Date: 12/30/2020 16:58:55 Campus Recruiting Intern Date: 12/30/2020 17:25:00 Dictated By: SILVIA ANDRADE MD MTDD
[2020-12-30] MEDS: ONDANSETRON 4 MG/2 ML (SDV) Z0FRAN IVP PRN (17:37)
[2020-12-30 19:04] VITALS: BP 100/74
--- NOTE | 2020-12-30 19:28 | History & Physical ---
History of Present Illness History of Present Illness Reason for visit/HPI PT IS A 60 Y/O FEMALE WHO IS WELL KNOWN TO ME FROM CLINIC. SHE WAS DIRECTLY ADMITTED TO THE HOSPITAL FOR DEHYDRATION, OBSTIPATION WITH NO BOWEL MOVEMENT FOR OVER 17 DAYS PER HER REPORT. SHE HAD A CHOLECYSTECTOMY IN OCTOBER, HAD PROGRESSIVE WEAKNESS AND JAUNDICE, WAS F OUND TO HAVE RETAINED STONES AND WAS SENT FOR AN ERCP WITH SUBSEQUENT HOSPITALIZATION AND IV ANTIBIOTICS. SHE WAS TRANSITIONED TO ORAL ANTIBIOTICS, AND HAD SERIAL LABS FOLLOWED BY THE SURGEON. SHE CAME TO MY OFFICE A FEW WEEKS AGO WITH COMPLAINT OF CONSTIPATION, WAS SENT FOR FLUIDS AND STARTED ON LACTULOSE WITH NO RESULTS PER PATIENT'S REPORT. SHE STATES THAT SHE HAS BARELY BEEN EATING ANYTHING DUE TO NAUSEA AND ABDOMINAL PAIN. HER FAMILY REPORTS PROGRESSIVE WEAKNESS OVER THE PAST MONTH. Date of Admission Dec 30, 2020 at 12:36 Date Seen by a Provider: Dec 30, 2020 Time Seen by a Provider: 19:10 I consulted on this patient on 12/30/20 19:28 Attending Physician Doreen Garcia MD Admitting Physician Doreen Garcia MD Consult DR ANDRADE Allergies and Home Medications Allergies Coded Allergies: valacyclovir HCl (Verified Allergy, Unknown, 08/05/20) Patient Home Medication List Home Medication List Reviewed: Yes Bupropion HCl (Bupropion HCl) 75 Mg Tablet, 75 MG PO BID, (Reported) Entered as Reported by: CATRACHITO DREW on 12/30/201408 Last Action: Continued Ciprofloxacin HCl (Ciprofloxacin HCl) 500 Mg Tablet, 500 MG PO BID, (Reported) Entered as Reported by: CATRACHITO DREW on 12/30/201408 Last Action: Held Hydrocodone/Acetaminophen (Hydrocodone-Acetamin 7.5-325) 1 Each Tablet, 1 EACH PO QID PRN for PAIN-MODERATE (5-7), (Reported) Entered as Reported by: CATRACHITO DREW on 12/30/201408 Last Action: Reviewed Lactulose (Lactulose) 10 Gm/15 Ml Solution, 15 ML PO BID, (Reported) Entered as Reported by: CATRACHITO DREW on 12/30/201408 Last Action: Held Metronidazole (Metronidazole) 500 Mg Tablet, 500 MG PO TID, (Reported) Entered as Reported by: CATRACHITO DREW on 12/30/201408 Last Action: Held Ondansetron (Ondansetron Odt) 4 Mg Tab.rapdis, 4 MG PO Q8H PRN for NAUSEA/VOMITING-1ST LINE, (Reported) Entered as Reported by: CATRACHITO DREW on 12/30/20 1409 Last Action: Reviewed Discontinued Medications Acetaminophen (Tylenol Extra Strength) 500 Mg Tablet, 1,000 MG PO Q8H PRN for PAIN-MILD (1-4), (Reported) Discontinued Reason: No Longer Taking Entered as Reported by: CATARCHITO DREW on 10/31/20 1639 Last Action: Discontinued Hydrocodone/Acetaminophen (Hydrocodone-Acetamin 7.5-325) 1 Each Tablet, 1 EACH PO Q4H Discontinued Reason: No Longer Taking Prescribed by: SILVIA ANDRADE on 11/01/20 1310 Last Action: Discontinued Metformin HCl (Metformin HCl) 500 Mg Tablet, 250 MG PO BID, (Reported) Discontinued Reason: No Longer Taking Entered as Reported by: CATRACHITO DREW on 10/31/20 1639 Last Action: Discontinued Past Nqacivk-Sesckx-Xepahl Hx Patient Social History Marrital Status: single Number of Children: 1 Number of living children: 1 Living Status: LIVES WITH SISTER [facility] 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[employer]) Tobacco Use?: No Smoking Status: Never a Smoker Smokeless Tobacco Frequency: Never a User Use of E-Cig and/or Vaping dev: No Substance use?: No Alcohol Use?: No Pt feels they are or have been: No Immunizations Up To Date Date of Influenza Vaccine: Dec 24, 2010 First/Initial COVID19 Vaccinat: mar Second COVID19 Vaccination Scott: apr Tetanus Booster (TDap): Unknown Hepatitis A: No Hepatitis B: Yes Current Status status: No status: No Advance Directives: No Communicates: Verbally Primary Language: Maori Preferred Spoken Language: Maori Is interpretation needed?: No Sensory deficits: Vision impairment Implanted or Applied Medical D: Stents Past Medical History Surgeries: Breast, Gallbladder (WITH STENTS IN BILIARY TREE AND PANCREATIC DUCTS), Orthopedic Currently Using CPAP: No Currently Using BIPAP: No Hypertension Are Your Blood Sugars Over 250: No Loss of Vision: Denies Breast Did You Recieve Any Treatments: Yes What Type of Treatment Did You: Chemotherapy, Radiation, Surgical Intervention Blood Disorders: No Adverse Reaction/Blood Tranf: No Family Medical History Reviewed and Corrections made Heart Disease, Other Conditions/Hx (HX OF GALLBLADDER DISEASE WITH SURGICAL COMPLICATIONS POST CHOLECYSTECTOMY IN MOTHER, FATHER, SISTER, GRANDMOTHER) Review of Systems Constitutional: No chills, No fever; malaise, weakness, weight loss EENTM: No hoarseness, No throat pain Respiratory: No cough, No dyspnea on exertion, No short of breath Cardiovascular: No chest pain, No edema Gastrointestinal: RUQ, LUQ, abdominal pain, constipation, nausea, vomiting Genitourinary: no symptoms reported Musculoskeletal: muscle weakness Skin: other (SCABBED SITE ON LOWER SACRAL REGION) Psychiatric/Neurological: Anxiety, Depressed, Weakness All Other Systems Reviewed Negative Unless Noted: Yes Physical Exam Vital Signs Vital Signs - First Documented 12/30/20 13:00 Temp 36.4 Pulse 104 Resp 20 B/P (MAP) 113/82 (92) Pulse Ox 96 O2 Delivery Room Air Capillary Refill : Height, Weight, BMI Height: '" Weight: lbs. oz. kg; 43.38 BMI Method:Stated General Appearance: WD/WN, Mild Distress (DUE TO PAIN) Eyes: Bilateral Eye Normal Inspection, Bilateral Eye PERRL, Bilateral Eye EOMI HEENT: PERRL/EOMI, Pharynx Normal Neck: Full Range of Motion, Normal Inspection, Non Tender, Supple Respiratory: Chest Non Tender, Lungs Clear, Normal Breath Sounds, No Accessory Muscle Use, No Respiratory Distress Cardiovascular: Regular Rate, Rhythm, No Edema, Normal Peripheral Pulses Gastrointestinal: No Organomegaly, No Pulsatile Mass, Soft, Abnormal Bowel Sounds (DECREASED), Tenderness (RUQ, LUQ, EPIGASTRIUM, ARE AREAS OF GREATEST DISCOMFORT WITH MILD DISCOMFORT LOWER ABDOMEN) Rectal: Deferred Back: Normal Inspection, No Vertebral Tenderness Extremity: Normal Capillary Refill, Normal Inspection, Normal Range of Motion, Non Tender, No Calf Tenderness, No Pedal Edema Neurologic/Psychiatric: Alert, Oriented x3, No 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, wet 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 DEHYDRATION - IV FLUIDS, MONITOR LABS OBSTIPATION - PT HAS BEEN ON LACTULOSE, ADD MIRALAX PER DR. LUPE ARRINGTON ENEMA ABDOMINAL PAIN - MONITOR SYMPTOMS ELEVATED LIVER ENZYMES - MONITOR LABS ONCE PT IS HYDRATED JAUNDICE WITH MILD ELEVATED BILIRUBIN - SHOULD IMPROVE WITH HYDRATION LIVER MASS - PT TO HAVE MRI WITH LIVER PROTOCOL TOMORROW Admission Diagnosis INTRACTABLE NAUSEA DEHYDRATION OBSTIPATION ABDOMINAL PAIN ELEVATED LIVER ENZYMES JAUNDICE ELEVATED BILIRUBIN LIVER MASS Admission Status: Inpatient Order (span 2 midnights) Reason for Inpatient Admission: INPT ADMISSION FOR NAUSEA, EMESIS, OBSTIPATION, ELEVATED LIVER ENZYMES WITH POST CHOLECYSTECOMY STENTS FOR RETAINED STONES AND FAILURE TO IMPROVE. WILL REQUIRE AT LEAST 48 TO 72 HOURS IN HOSPITAL DOREEN GARCIA MD Dec 30, 2020 19:28
[2020-12-30] MEDS ORDERED: ENOXAPARIN 40 MG/0.4 ML (LOVENOX) SYR SC SCH (19:30)
[2020-12-30] MEDS: polyethylene glycoL POWDER 17 GM (MIRALAX) PACK PO SCH (20:29)
[2020-12-30] MEDS: ENOXAPARIN 40 MG/0.4 ML (LOVENOX) SYR SC SCH (20:30)
[2020-12-30] MEDS: PANTOPRAZOLE 40 MG (PROTONIX) VIAL IV SCH (20:30)
[2020-12-30] MEDS: CIPROFLOXACIN IV 400MG/200ML 200 ML IV SCH (20:43)
[2020-12-30] MEDS ORDERED: PANTOPRAZOLE 40 MG (PROTONIX) VIAL IV SCH (21:00)
[2020-12-30] MEDS: metroNIDAZOLE 500MG/100ML IVPB 100 ML IV SCH (21:52)
[2020-12-31] VITALS (7 sets, daily range): BP systolic 114–143; BP diastolic 61–85
[2020-12-31] MEDS: D5 NS 1000 ML IV SOLUTION 1,000 ML IV SCH ×4 (02:32→19:19)
[2020-12-31] MEDS: ONDANSETRON 4 MG/2 ML (SDV) Z0FRAN IVP PRN ×2 (05:20→09:59)
[2020-12-31] MEDS: metroNIDAZOLE 500MG/100ML IVPB 100 ML IV SCH ×3 (05:21→20:33)
[2020-12-31] MEDS: HYDROcodone/APAP 7.5 MG/325 MG (LORTAB, LORCET PLUS) TABLET PO PRN ×4 (05:21→20:31)
[2020-12-31 06:12] LABS: ALBUMIN 2.3 GM/DL (3.2-4.5)
[2020-12-31 06:13] LABS: POTASSIUM 3.2 MMOL/L (3.6-5.0)
[2020-12-31 06:14] LABS: CALCIUM 8.1 MG/DL (8.5-10.1)
[2020-12-31 06:15] LABS: TOTAL PROTEIN 6.4 GM/DL (6.4-8.2)
[2020-12-31 06:19] LABS: CREATININE SERUM 0.81 MG/DL (0.60-1.30)
[2020-12-31 06:42] LABS: HEMATOCRIT 33 % (35-52); HEMOGLOBIN 10.2 g/dL (11.5-16.0); MEAN CORPUSCULAR HEMOGLOBIN 29 pg (25-34); MEAN CORPUSCULAR HGB CONC 31 g/dL (32-36); MEAN CORPUSCULAR VOLUME 93 fL (80-99); MEAN PLATELET VOLUME 10.2 fL (9.0-12.2); PLATELET COUNT 235 10^3/uL (130-400); WHITE BLOOD COUNT 12.6 10^3/uL (4.3-11.0)
[2020-12-31] MEDS: LACTOBACILLUS ACIDOPHILUS (PROBIOTIC) CAPSULE PO SCH ×3 (07:31→17:55)
[2020-12-31] MEDS: CIPROFLOXACIN IV 400MG/200ML 200 ML IV SCH ×2 (08:03→20:33)
[2020-12-31] MEDS: PANTOPRAZOLE 40 MG (PROTONIX) VIAL IV SCH ×2 (08:03→20:31)
--- NOTE | 2020-12-31 08:32 | Progress Note ---
RAMESH LAMBERT MED STUDENT 12/31/20 0832: Subjective Date Seen by a Provider: Dec 31, 2020 Time Seen by a Provider: 08:00 Subjective/Events-last exam Pt has x2 fleet enemas yesterday - had a moderate amount of brown watery stool with some small solid stool. Her nausea is improved today, abd pain is described as diffuse - improved this am but did receive a lortab. Pt going for a abd MRI later today. Pt agrees she has been passing gas at least once daily over the past 20 days. The chills and night sweats she was experiencing at home have resolved since admission. Review of Systems General: No Chills, No Night Sweats HEENT: No Head Aches, No Dysphasia Pulmonary: No Dyspnea, No Cough Cardiovascular: No: Chest Pain, Palpitations Gastrointestinal: Nausea, Abdominal Pain Genitourinary: No Dysuria, No Frequency Musculoskeletal: back pain; No: leg pain Neurological: No: Weakness, Numbness Focused Exam Lactate Level 12/30/20 14:15: Lactic Acid Level 1.71 Objective Exam Last Set of Vital Signs Vital Signs Date Time Temp Pulse Resp B/P (MAP) Pulse Ox O2 Delivery O2 Flow Rate FiO2 12/31/20 07:31 36.0 79 20 132/77 (95) 96 Room Air Capillary Refill : I&O Intake and Output 12/31/20 00:00 Intake Total 590 ml Output Total 0 ml Balance 590 ml Intake Oral 590 ml Output Urine Total 0 ml # Voids 2 # Bowel Movements 2 Daily Weight Change Yes, 2-13 lbs General: Alert, Oriented X3, Cooperative, No Acute Distress HEENT: Atraumatic, Mucous Memb Moist/[place] Neck: Supple, No Thyromegaly Lungs: Clear to Auscultation, Normal Air Movement Heart: Regular Rate, No Murmurs Abdomen: Other (Tenderness worse over epigastric area and LUQ. hypoactive BS x 4 quads. ) Extremities: No Edema, No Tenderness/Swelling Skin: No Breakdown, Other (three tick bite sites over lower back. ) Neuro: Normal Speech, Cranial Nerves 3-12 NL Psych/Mental Status: Mental Status NL, Mood NL Results Lab Laboratory Tests 12/30/20 14:15: White Blood Count 15.8H, Red Blood Count 4.20, Hemoglobin 12.1, Hematocrit 39, Mean Corpuscular Volume 92, Mean Corpuscular Hemoglobin 29, Mean Corpuscular Hemoglobin Concent 31L, Red Cell Distribution Width 15.1H, Platelet Count 358, Mean Platelet Volume 10.4, Immature Granulocyte % (Auto) 1, Neutrophils (%) (Auto) 83H, Lymphocytes (%) (Auto) 8L, Monocytes (%) (Auto) 7, Eosinophils (%) (Auto) 0, Basophils (%) (Auto) 0, Neutrophils # (Auto) 13.1H, Lymphocytes # (Auto) 1.3, Monocytes # (Auto) 1.2H, Eosinophils # (Auto) 0.0, Basophils # (Auto) 0.1, Immature Granulocyte # (Auto) 0.2H, Neutrophils % (Manual) 77, Lymphocytes % (Manual) 14, Monocytes % (Manual) 9, Clumped Platelets SLIGHT, S tomatocytes SLIGHT, Erythrocyte Sedimentation Rate 79H, Sodium Level 132L, Potassium Level 4.2, Chloride Level 91L, Carbon Dioxide Level 32, Anion Gap 9, Blood Urea Nitrogen 14, Creatinine 0.94, Estimat Glomerular Filtration Rate 60, BUN/Creatinine Ratio 15, Glucose Level 199H, Lactic Acid Level 1.71, Calcium Level 9.8, Corrected Calcium 10.6H, Total Bilirubin 1.5H, Aspartate Amino Transf (AST/SGOT) 36H, Alanine Aminotransferase (ALT/SGPT) 22, Alkaline Phosphatase 195H, C-Reactive Protein High Sensitivity 33.46H, Total Protein 8.5H, Albumin 3.0L, Amylase Level 16L, Lipase 25 12/31/20 05:24: Sodium Level 135, Potassium Level 3.2L, Chloride Level 98, Carbon Dioxide Level 29, Anion Gap 8, Blood Urea Nitrogen 11, Creatinine 0.81, Estimat Glomerular Filtration Rate 72, BUN/Creatinine Ratio 14, Glucose Level 377H, Calcium Level 8.1L, Corrected Calcium 9.5, Total Bilirubin 1.0, Aspartate Amino Transf (AST/SGOT) 24, Alanine Aminotransferase (ALT/SGPT) 17, Alkaline Phosphatase 147H , Total Protein 6.4, Albumin 2.3L 12/31/20 06:30: White Blood Count 12.6H, Red Blood Count 3.58L, Hemoglobin 10.2L, Hematocrit 33L , Mean Corpuscular Volume 93, Mean Corpuscular Hemoglobin 29, Mean Corpuscular Hemoglobin Concent 31L, Red Cell Distribution Width 14.9H, Platelet Count 235, Mean Platelet Volume 10.2 Assessment/Plan Assessment/Plan Assess & Plan/Chief Complaint Ileus Vs partial SBO PSH: lap choley in October. After the lap choley she had multiple retained gallstones discovered, and subsequently x2 duct stent placement via ERCP. lactic acid 1.71 yesterday at admission. Received 2 x fleet enema 12/31, passed gas and stool. Miralax Relistor injection after MRI later today. Liver Abscess Leukocytosis Elevated alk phos Likely source of leukocytosis. 12/26 CT: stable size compared to prior in november. WBC improved from 15 .8 to 12.6 today. Blood culture pending. MRI of abd later today to trend abscess size. Cipro and metro Diverticulosis Normocytic anemia Hypokalemia DVT prophylaxis: lovenox and SCD GI prophylaxis: protonix and probiotic Lines and tubes: 1 x midline. DOREEN LI MD 12/31/2027: Subjective Date Seen by a Provider: Dec 31, 2020 Time Seen by a Provider: 08:40 Subjective/Events-last exam PT REPORTS THAT SHE IS FEELING A LITTLE BIT BETTER WITH LESS ABDOMINAL PAIN THAN ON ADMISSION, SHE HAD ENEMAS X 2 YESTERDAY WITH MINIMAL RESULTS AND THEN EARLIER THIS MORNING SHE HAD A LARGER FLUID AND SOME SOLID STOOL OUTPUT. SHE STATES THAT SHE HAS BEEN FLATULENT, BUT NOT PASSING ANY MORE STOOL THIS MORNING. Review of Systems General: No Chills, No Night Sweats; Fatigue, Malaise HEENT: No Sore Throat Pulmonary: No Dyspnea, No Cough Cardiovascular: No: Chest Pain Gastrointestinal: Nausea, Abdominal Pain Genitourinary: No Dysuria, No Frequency Neurological: Weakness; No: Numbness, Confusion Objective Exam General: Alert, Oriented X3, Cooperative, No Acute Distress HEENT: Atraumatic, Mucous Memb Moist/[place] Neck: Supple Lungs: Clear to Auscultation, Normal Air Movement Heart: Regular Rate, No Murmurs Abdomen: Soft (TTP UPPER LEFT AND RIGHT AND MILDLY TTP LOWER ABDOMEN, DECREASED BOWEL SOUNDS THROUGHOUT), Other (Tenderness worse over epigastric area and LUQ. hypoactive BS x 4 quads. ) Skin: Other (three tick bite sites over lower back. ) Neuro: Normal Speech Psych/Mental Status: Mental Status NL, Mood NL Assessment/Plan Assessment/Plan Assess & Plan/Chief Complaint INTRACTABLE NAUSEA DEHYDRATION OBSTIPATION ABDOMINAL PAIN ELEVATED LIVER ENZYMES JAUNDICE ELEVATED BILIRUBIN LIVER MASS INTRACTABLE NAUSEA - PT STARTED ON IV ZOFRAN, WILL PUSH FLUIDS IV AND MONITOR SYMPTOMS. DEHYDRATION - IV FLUIDS, MONITOR LABS OBSTIPATION - PT HAS BEEN ON LACTULOSE, ADD MIRALAX PER DR. ANDRADE - NURY ENEMA PRODUCED SOME RESULTS, WILL ADD RELISTOR TODAY ABDOMINAL PAIN - MONITOR SYMPTOMS ELEVATED LIVER ENZYMES - MONITOR LABS ONCE PT IS HYDRATED JAUNDICE WITH MILD ELEVATED BILIRUBIN - SHOULD IMPROVE WITH HYDRATION LIVER MASS VS ABSCESS - PT TO HAVE MRI WITH LIVER PROTOCOL TODAY, WILL GIVE ATIVAN PRIOR TO PT GOING INTO MRI DUE TO CLAUSTROPHOBIA - PT ON METRONIDAZOLE AND CIPRO IV DVT PROPHYLAXIS WITH LOVENOX AND SCD'S GI PROPHYLAXIS WITH PROBIOTICS AND PPI Supervisory-Addendum Brief Verification & Attestation Participated in pt care: history, MDM, physical Personally performed: exam, history, MDM, supervision of care Care discussed with: Medical Student Procedures: n/a Results interpretation: Verified all documentation AGREE WITH STUDENT NOTE, SEE MY DOCUMENTATION FOR FURTHER DETAILS RAMESH LAMBERT MED STUDENT Dec 31, 2020 08:32 DOREEN LI MD Dec 31, 2020 09:27
[2020-12-31] MEDS ORDERED: METHYLNALTREXONE 12 MG/0.6 ML (RELISTOR) VIAL SQ SCH (09:00)
[2020-12-31] MEDS ORDERED: LORazepam INJ 2 MG/ML (ATIVAN) VIAL IVP ONE (09:00)
[2020-12-31] MEDS: polyethylene glycoL POWDER 17 GM (MIRALAX) PACK PO SCH ×2 (11:21→20:31)
[2020-12-31] MEDS: buPROPion 75 MG (WELLBUTRIN) TAB PO SCH ×2 (11:21→20:31)
[2020-12-31] MEDS: POTASSIUM CL 10MEQ/50ML IVPB 50 ML IV SCH ×2 (11:25→11:26)
--- NOTE | 2020-12-31 17:33 | Progress Note ---
Subjective Date Seen by a Provider: Dec 31, 2020 Time Seen by a Provider: 17:00 Subjective/Events-last exam doing better today. had several large bowel movements. able to tolerate more PO. pain controlled. could not do MRI due to body habitus. Focused Exam Lactate Level 12/30/20 14:15: Lactic Acid Level 1.71 Objective Exam Vital Signs Date Time Temp Pulse Resp B/P (MAP) Pulse Ox O2 Delivery O2 Flow Rate FiO2 12/31/20 15:30 36.6 83 18 125/83 (97) 99 Room Air 12/31/20 11:23 36.0 92 18 133/85 (101) 98 Room Air 12/31/20 08:00 Room Air 12/31/20 07:31 36.0 79 20 132/77 (95) 96 Room Air 12/31/20 03:57 36.7 79 20 115/70 (85) 96 Room Air 12/31/20 00:41 35.4 81 20 114/61 (78) 97 Room Air 12/30/20 20:30 Room Air 12/30/20 19:04 36.3 107 18 100/74 (83) 95 Room Air I & O 12/31/20 07:00 Intake Total 1690 ml Output Total 0 ml Balance 1690 ml Capillary Refill : General Appearance: No Apparent Distress HEENT: PERRL/EOMI Neck: Full Range of Motion Respiratory: Chest Non Tender, Lungs Clear, Normal Breath Sounds Cardiovascular: Regular Rate, Rhythm Gastrointestinal: normal bowel sounds, non tender, soft Extremity: Normal Capillary Refill Neurologic/Psychiatric: Alert, Oriented x3 Skin: Normal Color Lymphatic: No Adenopathy Results Lab Laboratory Tests 12/31/20 05:24: Sodium Level 135, Potassium Level 3.2L, Chloride Level 98, Carbon Dioxide Level 29, Anion Gap 8, Blood Urea Nitrogen 11, Creatinine 0.81, Estimat Glomerular Filtration Rate 72, BUN/Creatinine Ratio 14, Glucose Level 377H, Calcium Level 8.1L, Corrected Calcium 9.5, Total Bilirubin 1.0, Aspartate Amino Transf (AST/SGOT) 24, Alanine Aminotransferase (ALT/SGPT) 17, Alkaline Phosphatase 147H , Total Protein 6.4, Albumin 2.3L 12/31/20 05:32: Magnesium Level 1.9 12/31/20 06:30: White Blood Count 12.6H, Red Blood Count 3.58L, Hemoglobin 10.2L, Hematocrit 33L , Mean Corpuscular Volume 93, Mean Corpuscular Hemoglobin 29, Mean Corpuscular Hemoglobin Concent 31L, Red Cell Distribution Width 14.9H, Platelet Count 235, Mean Platelet Volume 10.2 Microbiology 12/30/20 Blood Culture - Preliminary, Resulted No growth Assessment/Plan Assessment/Plan Assess & Plan/Chief Complaint constipation s/p lap samy and ERCP with 2 stent placement. unable to do MRI but can still monitor with CT. if any change would recommend radiologic guided bx. advance diet. family persistent and adamant about weakness and lack of ambulation at home. unsure where she is at this point. will put in ARU eval. SILVIA ANDRADE MD Dec 31, 2020 17:33
[2020-12-31] MEDS: ENOXAPARIN 40 MG/0.4 ML (LOVENOX) SYR SC SCH (20:31)
[2021-01-01] MEDS: ONDANSETRON 4 MG/2 ML (SDV) Z0FRAN IVP PRN ×3 (00:31→15:56)
[2021-01-01] MEDS: HYDROcodone/APAP 7.5 MG/325 MG (LORTAB, LORCET PLUS) TABLET PO PRN ×4 (00:31→18:20)
[2021-01-01] MEDS: D5 NS 1000 ML IV SOLUTION 1,000 ML IV SCH (04:22)
[2021-01-01] MEDS: metroNIDAZOLE 500MG/100ML IVPB 100 ML IV SCH ×3 (04:22→22:23)
[2021-01-01 04:31] LABS: HEMATOCRIT 30 % (35-52); HEMOGLOBIN 9.3 g/dL (11.5-16.0); MEAN CORPUSCULAR HEMOGLOBIN 29 pg (25-34); MEAN CORPUSCULAR HGB CONC 31 g/dL (32-36); MEAN CORPUSCULAR VOLUME 93 fL (80-99); MEAN PLATELET VOLUME 10.5 fL (9.0-12.2); PLATELET COUNT 207 10^3/uL (130-400); WHITE BLOOD COUNT 10.4 10^3/uL (4.3-11.0)
[2021-01-01 04:44] LABS: ALBUMIN 2.3 GM/DL (3.2-4.5); POTASSIUM 3.8 MMOL/L (3.6-5.0)
[2021-01-01 04:45] LABS: CALCIUM 8.1 MG/DL (8.5-10.1)
[2021-01-01 04:46] LABS: TOTAL PROTEIN 6.1 GM/DL (6.4-8.2)
[2021-01-01 04:48] LABS: BILIRUBIN,TOTAL 0.9 MG/DL (0.1-1.0)
[2021-01-01 04:50] LABS: CREATININE SERUM 0.83 MG/DL (0.60-1.30)
[2021-01-01] MEDS ORDERED: inSUlin ASPART (NovoLOG) 1 UNIT/0.01 ML (CHARGE PER UNIT) SC ONE (05:45)
[2021-01-01] MEDS: NS IV 1000 ML 1,000 ML IV SCH ×3 (06:21→20:54)
[2021-01-01 07:25] VITALS: BP 111/74
--- NOTE | 2021-01-01 08:32 | Progress Note ---
RAMESH LAMBERT MED STUDENT 01/01/21 0832: Subjective Date Seen by a Provider: Jan 01, 2021 Time Seen by a Provider: 08:00 Subjective/Events-last exam Pt not feeling as well as yesterday this am. States that she has had persistent, cramping abd pain, diffuse, since yesterday after relistor was given. This has affected her sleep. She has not passed stool, or gas, since yesterday around 330pm. Tried dinner last night - no worsening post-prandial pain, has little appetite. Review of Systems General: No Chills, No Night Sweats HEENT: No Head Aches, No Dysphasia Pulmonary: No Dyspnea, No Cough Cardiovascular: No: Chest Pain, Palpitations Gastrointestinal: Nausea, Abdominal Pain, Constipation Genitourinary: No Dysuria, No Frequency, No Incontinence Musculoskeletal: back pain; No: shoulder pain Neurological: No: Numbness, Confusion Focused Exam Lactate Level 12/30/20 14:15: Lactic Acid Level 1.71 Objective Exam Last Set of Vital Signs Vital Signs Date Time Temp Pulse Resp B/P (MAP) Pulse Ox O2 Delivery O2 Flow Rate FiO2 01/01/21 07:25 36.2 82 18 111/74 (86) 97 Room Air Capillary Refill : I&O Intake and Output 01/01/21 00:00 Intake Total 2450 ml Output Total 5 ml Balance 2445 ml Intake Oral 950 ml IV Total 1500 ml Output Urine Total 5 ml # Voids 4 General: Alert, Oriented X3, Cooperative, No Acute Distress HEENT: Atraumatic, Mucous Memb Moist/[place] Neck: Supple, No Thyromegaly Lungs: Clear to Auscultation, Normal Air Movement Heart: Regular Rate, No Murmurs Abdomen: Normal Bowel Sounds, Other (tender to palpation, worse over epigatric and LUQ area. ) Extremities: No Cyanosis, No Tenderness/Swelling Skin: No Breakdown, No Significant Lesion Neuro: Normal Speech, Cranial Nerves 3-12 NL Psych/Mental Status: Mental Status NL, Mood NL Results Lab Laboratory Tests 01/01/21 04:20: White Blood Count 10.4, Red Blood Count 3.26L, Hemoglobin 9.3L, Hematocrit 30L, Mean Corpuscular Volume 93, Mean Corpuscular Hemoglobin 29, Mean Corpuscular Hemoglobin Concent 31L, Red Cell Distribution Width 14.9H, Platelet Count 207, Mean Platelet Volume 10.5, Sodium Level 134L, Potassium Level 3.8, Chloride Level 98, Carbon Dioxide Level 29, Anion Gap 7, Blood Urea Nitrogen 9, Creatinine 0.83, Estimat Glomerular Filtration Rate 70, BUN/Creatinine Ratio 11, Glucose Level 319H, Calcium Level 8.1L, Corrected Calcium 9.5, Total Bilirubin 0.9, Aspartate Amino Transf (AST/SGOT) 25, Alanine Aminotransferase (ALT/SGPT) 15, Alkaline Phosphatase 152H, Total Protein 6.1L, Albumin 2.3L Microbiology 12/30/20 Blood Culture - Preliminary, Resulted No growth Assessment/Plan Assessment/Plan Assess & Plan/Chief Complaint Intractable nausea and abd pain, possibility due to ileus Vs partial SBO. PSH: lap choley in October. After the lap choley she had multiple retained gallstones discovered, and subsequently x2 duct stent placement via ERCP. lactic acid 1.71 at admission. Received 2 x fleet enema 12/31, passed gas and stool then. Abd pain and obstipation since relistor injection. Miralax d/c relistor. Consider a KUB or SBFT. PT Liver Abscess Vs mass Leukocytosis Elevated alk phos leukocytosis resolved today. 12/26 CT: stable size compared to prior in november. Blood culture neg. MRI could not be performed yesterday due to body habitus. Cipro and metro Normocytic anemia .07/22 today. Likely 2/2 hydration status, recent surgery, and chronic inflammation. Diverticulosis Hypokalemia NIDDM DVT prophylaxis: lovenox and SCD GI prophylaxis: protonix and probiotic Lines and tubes: 1 x midline. DOREEN LI MD 01/01/2121: Subjective Date Seen by a Provider: Jan 01, 2021 Time Seen by a Provider: 08:40 Subjective/Events-last exam BRIANA REPORTS THAT HER STOMACH HAS BEEN HURTING SINCE THE RELISTOR INJECTION YESTERDAY AND SHE HAS NOT HAD ANY BOWEL MOVEMENTS SINCE YESTERDAY MORNING. SHE STATES THAT THE MEAL YESTERDAY EVENING ALSO UPSET HER STOMACH. SHE DENIES CHEST PAIN, SHORTNESS OF BREATH, DIZZINESS, OR OTHER CONCERNS. SHE IS ANXIOUS AND TEARFUL ABOUT HER HEALTH. Review of Systems General: No Chills, No Night Sweats; Fatigue HEENT: No Head Aches, No Dysphasia Pulmonary: No Dyspnea, No Cough Cardiovascular: No: Chest Pain, Palpitations Gastrointestinal: Nausea, Abdominal Pain; No: Vomiting Genitourinary: No Dysuria Musculoskeletal: back pain (CHRONIC) Neurological: Weakness; No: Confusion TEARFUL, ANXIOUS Objective Exam General: Alert, Oriented X3, Cooperative, Mild Distress (TEARFUL, DISTRESS IS EMOTIONAL DISTRESS) HEENT: Atraumatic, Mucous Memb Moist/[place] Neck: Supple Lungs: Clear to Auscultation, Normal Air Movement Heart: Regular Rate, No Murmurs Abdomen: Other (DECREASED BOWEL SOUNDS, TTP DIFFUSELY) Extremities: No Tenderness/Swelling Neuro: Normal Speech, Cranial Nerves 3-12 NL Psych/Mental Status: Mental Status NL, Other (TEARFUL) Assessment/Plan Assessment/Plan Assess & Plan/Chief Complaint INTRACTABLE NAUSEA DEHYDRATION OBSTIPATION ABDOMINAL PAIN ELEVATED LIVER ENZYMES JAUNDICE ELEVATED BILIRUBIN LIVER MASS ELEVATED GLUCOSE INTRACTABLE NAUSEA - PT STARTED ON IV ZOFRAN, WILL PUSH FLUIDS IV AND MONITOR SYMPTOMS. DEHYDRATION - IV FLUIDS, MONITOR LABS OBSTIPATION WITH ABDOMINAL - PT HAS BEEN ON LACTULOSE, ADDED MIRALAX PER DR. LUPE ARRINGTON ENEMA PRODUCED SOME RESULTS, - RELISTOR CAUSED ABDOMINAL PAIN - WILL CHECK KUB AND DC RELISTOR - MAY GIVE ENEMA TODAY PENDING KUB RESULTS ELEVATED LIVER ENZYMES - NOW RESOLVED WITH HYDRATION JAUNDICE WITH MILD ELEVATED BILIRUBIN - IMPROVED WITH HYDRATION LIVER MASS VS ABSCESS - - PT'S BODY HABITUS WOULD NOT ALLOW FOR MRI - WILL LOOK AT DOING THIS OUTPATIENT. - PT ON METRONIDAZOLE AND CIPRO IV ELEVATED GLUCOSE - CHECK ACCUCHECKS AND WILL START ON SLIDING SCALE INSULIN - SLIDNIG SCALE A DVT PROPHYLAXIS WITH LOVENOX AND SCD'S GI PROPHYLAXIS WITH PROBIOTICS AND PPI Supervisory-Addendum Brief Verification & Attestation Participated in pt care: history, MDM, physical Personally performed: exam, history, MDM, supervision of care Care discussed with: Medical Student Procedures: n/a Results interpretation: Verified all documentation SEE MY DOCUMENTATION - AGREE WITH STUDENT NOTE RAMESH LAMBERT MED STUDENT Jan 01, 2021 08:32 DOREEN LI MD Jan 01, 2021 09:21
--- NOTE | 2021-01-01 09:12 | Physical Therapy Evaluation ---
PT Evaluation-General Medical Diagnosis Admission Date Dec 30, 2020 at 13:08 Medical Diagnosis: dehydration, constipation Onset Date: Dec 30, 2020 Therapy Diagnosis Therapy Diagnosis: impaired mobility, strength, endurance Precautions Precautions/Isolations: Fall Prevention, Standard Precautions Referral Physician: Jean Reason for Referral: Evaluation/Treatment Medical History Additional Medical History Past Medical History Surgeries: Breast, Gallbladder (WITH STENTS IN BILIARY TREE AND PANCREATIC DUCTS), Orthopedic Currently Using CPAP: No Currently Using BIPAP: No Hypertension Are Your Blood Sugars Over 250: No Loss of Vision: Denies Breast Did You Recieve Any Treatments: Yes What Type of Treatment Did You: Chemotherapy, Radiation, Surgical Intervention Current History PSH: lap choley in October. After the lap choley she had multiple retained gallstones discovered, and subsequently x2 duct stent placement via ERCP. lactic acid 1.71 at admission. Social History Home: Single Level Current Living Status: Other Family Entry Into Home: Stairs With Railing PT Steps Into Home: 3 Prior Prior Level of Function SCALE: Activities may be completed with or without assistive devices. 4-Czdennnwwu-ctrvddo completes the activity by him/herself with no assistance from a helper. 5-Set-up or Clean-up Assistance-helper sets up or cleans up; patient completes activity. [place] assists only prior to or following the activity. 4-Supervision or Touching Assistance-helper provides verbal cues and/or touching/steadying and/or contact guard assistance as patient completes activity. Assistance may be provided throughout the activity or intermittently. 3-Partial/Moderate Assistance-helper does LESS THAN HALF the effort. [place] lifts, holds or supports trunk or limbs, but provides less than half the effort. 2-Substantial/Maximal Assistance-helper does MORE THAN HALF the effort. [place] lifts or holds trunk or limbs and provides more than half the effort. 9-Xlxbgojpy-hnfctw does ALL the effort. Patient does none of the effort to complete the activity. Or, the assistance of 2 or more helpers is required for the patient to complete the activity. If activity was not attempted, code reason: 7-Patient Refused. 9-Not Applicable-not attempted and the patient did not perform the activity before the current illness, exacerbation or injury. 10-Not Attempted due to Environmental Limitations-(lack of equipment, weather restraints, etc.). 88-Not Attempted due to Medical Conditions or Safety Concerns. Bed Mobility: 6 Transfers (B,C,W/C): 6 Gait: 6 Stairs: 6 Indoor Mobility (Ambulation): Independent Stairs: Independent PT Evaluation-Current Subjective Patient in recliner pre tx, agrees to PT, has 4/10 pain in abdomen and low back. Pt/Family Goals to be independent at home Objective Patient Orientation: Person, Place, Situation ROM/Strength ROM Lower Extremities WNL Strength Lower Extremities LLE (knee flexion 4/5, knee extension 4/5, dorsiflexion 4+/5), RLE (knee flexion 4/5, knee extension 4/5, dorsiflexion 4+/5) hip flexion not tested due to abdominal pain Sensory Hearing: Functional Sensation Right Lower Extremit: Intact Sensation Left Lower Extremity: Intact Transfers Sit to Stand (QC): 4 Chair/Lqq-aj-Wvedo Xfer(QC): 4 CGA Gait Does the Patient Walk?: Yes Mode of Locomotion: Walk Anticipated Mode of Locomotion: Walk Walk 10 feet (QC): 4 Walk 50 ft with 2 Turns(QC): 4 Walk 150 ft (QC): 4 Distance: 150' Gait Assistive Device: FWW Comments/Gait Description slow but steady ambulation, CGA Treatment BLE seated exercises x20 (AP, LAQ) Assessment/Needs Patient in recliner post tx with nurse call, phone, tray, all needs met. Patient has impaired mobility, strength, endurance. Patient is just CGA for sit to stand and transfers Rehab Potential: Fair PT Usp Goals Usp Goals PT Usp Goals Time Frame: Jan 08, 2021 Roll Left & Right (QC): 6 Sit to Lying (QC): 3 Lying-Sitting on Side/Bed(QC): 3 Sit to Stand (QC): 6 Chair/Wmm-va-Qlhil Xfer(QC): 6 Walk 10 feet (QC): 6 Walk 50ft with 2 Turns (QC): 6 Walk 150 ft (QC): 6 PT Plan Problem List Problem List: Activity Tolerance, Functional Strength, Safety, Balance, Gait, Transfer, Bed Mobility, ROM Treatment/Plan Treatment Plan: Continue Plan of Care Treatment Plan: Bed Mobility, Education, Functional Activity Altaf, Functional Strength, Gait, Safety, Therapeutic Exercise, Transfers Treatment Duration: Jan 08, 2021 Frequency: 6 times per week Estimated Hrs Per Day: .25 hour per day Patient and/or Family Agrees t: Yes Safety Risks/Education Patient Education: Gait Training, Transfer Techniques, Correct Positioning, Safety Issues Teaching Recipient: Patient Teaching Methods: Demonstration, Discussion Response to Teaching: Reinforcement Needed Discharge Recommendations Plan Patient will perform bed mobility and transfer training, balance and endurance training, functional strengthening, stair training, gait training, and education to improve functional mobility and independence at home. Therapy Discharge Recommendati: Home & Family, Post Acute PT Time/GCodes Time In: 812 Time Out: 828 Total Billed Treatment Time: 16 Total Billed Treatment 1 visit [facility] JENARO NOLAN PT Jan 01, 2021 09:12
[2021-01-01] MEDS: polyethylene glycoL POWDER 17 GM (MIRALAX) PACK PO SCH ×2 (09:15→20:54)
[2021-01-01] MEDS: CIPROFLOXACIN IV 400MG/200ML 200 ML IV SCH ×2 (09:15→20:54)
[2021-01-01] MEDS: buPROPion 75 MG (WELLBUTRIN) TAB PO SCH ×2 (09:15→20:53)
[2021-01-01] MEDS: LACTOBACILLUS ACIDOPHILUS (PROBIOTIC) CAPSULE PO SCH ×3 (09:15→17:33)
[2021-01-01] MEDS: PANTOPRAZOLE 40 MG (PROTONIX) VIAL IV SCH ×2 (09:16→20:53)
--- NOTE | 2021-01-01 10:44 | Diagnostic Imaging Report ---
INDICATION: Gallstones KUB 10:31 AM There are nubia in the gallbladder fossa. There appears to be a faintly opaque stent that may be a common duct stent. There is some pneumobilia present. Bowel gas pattern is normal. There are no pathologic masses or calcifications. IMPRESSION: Postoperative changes from cholecystectomy with suspected common duct stenting. Dictated by: Dictated on workstation # [id number]
[2021-01-01] MEDS: inSUlin ASPART (NovoLOG) 1 UNIT/0.01 ML (CHARGE PER UNIT) SC SCH ×3 (12:35→20:55)
[2021-01-01 15:31] VITALS: BP 111/76
[2021-01-01] MEDS: ENOXAPARIN 40 MG/0.4 ML (LOVENOX) SYR SC SCH (20:53)
[2021-01-01 23:52] VITALS: BP 117/70
[2021-01-02] MEDS: ONDANSETRON 4 MG/2 ML (SDV) Z0FRAN IVP PRN ×4 (00:40→22:53)
[2021-01-02] MEDS: HYDROcodone/APAP 7.5 MG/325 MG (LORTAB, LORCET PLUS) TABLET PO PRN ×4 (01:25→16:43)
[2021-01-02] MEDS: NS IV 1000 ML 1,000 ML IV SCH ×3 (02:35→20:18)
[2021-01-02] MEDS: metroNIDAZOLE 500MG/100ML IVPB 100 ML IV SCH ×3 (05:44→21:35)
[2021-01-02] MEDS: inSUlin ASPART (NovoLOG) 1 UNIT/0.01 ML (CHARGE PER UNIT) SC SCH ×4 (05:58→20:20)
[2021-01-02 06:03] LABS: HEMATOCRIT 32 % (35-52); HEMOGLOBIN 9.6 g/dL (11.5-16.0); MEAN CORPUSCULAR HEMOGLOBIN 28 pg (25-34); MEAN CORPUSCULAR HGB CONC 30 g/dL (32-36); MEAN CORPUSCULAR VOLUME 93 fL (80-99); MEAN PLATELET VOLUME 11.1 fL (9.0-12.2); PLATELET COUNT 209 10^3/uL (130-400); WHITE BLOOD COUNT 10.8 10^3/uL (4.3-11.0)
[2021-01-02 06:20] LABS: ALBUMIN 2.3 GM/DL (3.2-4.5); POTASSIUM 3.5 MMOL/L (3.6-5.0)
[2021-01-02 06:21] LABS: CALCIUM 8.1 MG/DL (8.5-10.1)
[2021-01-02 06:22] LABS: TOTAL PROTEIN 6.2 GM/DL (6.4-8.2)
[2021-01-02 06:24] LABS: BILIRUBIN,TOTAL 0.9 MG/DL (0.1-1.0)
[2021-01-02 06:26] LABS: CREATININE SERUM 0.71 MG/DL (0.60-1.30)
[2021-01-02 07:43] VITALS: BP 111/70
[2021-01-02] MEDS: polyethylene glycoL POWDER 17 GM (MIRALAX) PACK PO SCH ×2 (09:46→20:18)
[2021-01-02] MEDS: PANTOPRAZOLE 40 MG (PROTONIX) VIAL IV SCH ×2 (09:46→20:18)
[2021-01-02] MEDS: buPROPion 75 MG (WELLBUTRIN) TAB PO SCH (09:46)
[2021-01-02] MEDS: CIPROFLOXACIN IV 400MG/200ML 200 ML IV SCH ×2 (09:47→20:19)
[2021-01-02] MEDS: LACTOBACILLUS ACIDOPHILUS (PROBIOTIC) CAPSULE PO SCH ×3 (09:47→16:43)
--- NOTE | 2021-01-02 10:30 | Progress Note ---
RAMESH LAMBERT MED STUDENT 01/02/21 1030: Subjective Date Seen by a Provider: Jan 02, 2021 Time Seen by a Provider: 08:00 Subjective/Events-last exam Pt is mininally improved today. Nausea persisted throughout yesterday into the night - experiencing acid reflux into her throat causing pain. Cramping diffuse abd pain unchanged. Passing pass but no stool since tuesday 330pm. Pt has a depressed affect. Review of Systems General: No Chills, No Night Sweats HEENT: No Head Aches, No Dysphasia Pulmonary: No Dyspnea, No Cough Cardiovascular: Edema; No: Chest Pain, Palpitations Gastrointestinal: Nausea, Vomiting, Abdominal Pain, Constipation Genitourinary: No Dysuria, No Frequency Musculoskeletal: back pain; No: neck pain Neurological: No: Numbness, Change in speech, Confusion Psych: depressed affect, no AMS, no psychosis. Focused Exam Lactate Level 12/30/20 14:15: Lactic Acid Level 1.71 Objective Exam Last Set of Vital Signs Vital Signs Date Time Temp Pulse Resp B/P (MAP) Pulse Ox O2 Delivery O2 Flow Rate FiO2 01/02/21 08:00 Room Air 01/02/21 07:43 36.0 82 18 111/70 (84) 96 Capillary Refill : I&O Intake and Output 01/02/21 00:00 Intake Total 1950 ml Output Total 2 ml Balance 1948 ml Intake Oral 1650 ml IV Total 300 ml Output Urine Total 2 ml # Voids 4 General: Alert, Oriented X3, Cooperative, No Acute Distress HEENT: Atraumatic, Mucous Memb Moist/[place] Neck: Supple, No Thyromegaly Lungs: Clear to Auscultation, Normal Air Movement Heart: Regular Rate, No Murmurs Abdomen: Other (diffuse abd pain, hypoactive BS x4. ) Extremities: No Clubbing, Other (+2/4 edema b/l ) Skin: No Rashes, No Significant Lesion Neuro: Normal Speech, Cranial Nerves 3-12 NL Psych/Mental Status: Mental Status NL Results Lab Laboratory Tests 01/01/21 10:40: Iron Level 21L, Total Iron Binding Capacity 92L, Unsaturated Iron Binding Capaci ty 71, Transferrin % Saturation 23, Ferritin 2103.7H 01/01/21 12:31: Glucometer 212H 01/01/21 16:31: Glucometer 194H 01/01/21 19:55: Glucometer 158H 01/02/21 05:50: White Blood Count 10.8, Red Blood Count 3.41L, Hemoglobin 9.6L, Hematocrit 32L, Mean Corpuscular Volume 93, Mean Corpuscular Hemoglobin 28, Mean Corpuscular Hemoglobin Concent 30L, Red Cell Distribution Width 15.0H, Platelet Count 209, Mean Platelet Volume 11.1, Sodium Level 134L, Potassium Level 3.5L, Chloride Level 101, Carbon Dioxide Level 25, Anion Gap 8, Blood Urea Nitrogen 7, Creatinine 0.71, Estimat Glomerular Filtration Rate 83, BUN/Creatinine Ratio 10, Glucose Level 195H, Calcium Level 8.1L, Corrected Calcium 9.5, Total Bilirubin 0.9, Aspartate Amino Transf (AST/SGOT) 20, Alanine Aminotransferase (ALT/SGPT) 16, Alkaline Phosphatase 163H, Total Protein 6.2L, Albumin 2.3L 01/02/21 05:54: Glucometer 182H 01/02/21 09:22: Glucometer 161H Microbiology 12/30/20 Blood Culture - Preliminary, Resulted No growth Assessment/Plan Assessment/Plan Assess & Plan/Chief Complaint Intractable nausea and abd pain, possibility due to ileus Vs partial SBO. PSH: lap choley in October. After the lap choley she had multiple retained gallstones discovered, and subsequently x2 duct stent placement via ERCP. lactic acid 1.71 at admission. Received 2 x fleet enema 12/31, passed gas and stool then. 01/01 KUB: normal bowel gas pattern, no obstruction. Miralax Soap-purvi enema today Carafe to acid reflux. Trial of regular diet. Zofran + Scopolamine patch. Lortab PRN for pain. Once patient able to adequately hydrate and feed themselves PO, will discharge home with [facility]. Liver Abscess Vs mass Resolved Leukocytosis Elevated alk phos. 12/26 CT: stable size compared to prior in november. Blood culture neg. MRI could not be performed 12/31 due to body habitus. Cipro and metro Depression Start Cymbalta - 30mg QD to start. Normocytic anemia H/H stable Iron panel suggest etiology 2/2 hydration status, and anemia of chronic dz. Diverticulosis Hypokalemia NIDDM DVT prophylaxis: lovenox and SCD GI prophylaxis: protonix and probiotic Lines and tubes: 1 x midline. DOREEN LI MD 01/02/21 1634: Subjective Date Seen by a Provider: Jan 02, 2021 Time Seen by a Provider: 09:30 Subjective/Events-last exam PT REPORTS THAT SHE IS FEELING FATIGUED, SHE STILL HAS NAUSEA AND DID NOT EAT SUPPER LAST NIGHT DUE TO HER PERSISTENT NAUSEA. SHE REPORTS THAT SHE HAS BEEN HAVING A LOT OF REFLUX. SHE REPORTS THAT SHE HAS A FEAR THAT SHE WILL BE TOLD SHE HAS CANCER AND THAT SHE IS FEELING REALLY BLUE ABOUT HER HEALTH. Review of Systems General: No Chills, No Night Sweats; Fatigue, Appetite (DECREASED) HEENT: No Head Aches, No Dysphasia Pulmonary: No Dyspnea, No Cough Cardiovascular: Edema (LOWER LEGS); No: Chest Pain, Palpitations Gastrointestinal: Nausea, Vomiting (DRY HEAVES), Abdominal Pain, Constipation Genitourinary: No Dysuria; Frequency Musculoskeletal: back pain Neurological: Weakness; No: Numbness, Confusion Objective Exam General: Alert, Oriented X3, Cooperative, Mild Distress (DUE TO ABDOMINAL PAIN) HEENT: Mucous Memb Moist/[place] Neck: Supple Lungs: Clear to Auscultation, Normal Air Movement (NO CRACKLES, NO DECREASE IN AIR MOVEMENT THROUGHOUT, GOOD EFFORT) Heart: Regular Rate Abdomen: Soft, Other (TTP DIFFUSELY, TYMPANITIC OVER UPPER ABDOMEN, HYPOACTIVE BOWEL SOUNDS THROUGHOUT) Skin: No Rashes, No Significant Lesion Neuro: Normal Speech, Cranial Nerves 3-12 NL Psych/Mental Status: Mental Status NL, Other (FLAT AFFECT) Assessment/Plan Assessment/Plan Assess & Plan/Chief Complaint INTRACTABLE NAUSEA DEHYDRATION OBSTIPATION ABDOMINAL PAIN ELEVATED LIVER ENZYMES JAUNDICE ELEVATED BILIRUBIN LIVER MASS ELEVATED GLUCOSE HYPOKALEMIA DEPRESSION HX OF BREAST CANCER INTRACTABLE NAUSEA - PT STARTED ON IV ZOFRAN, WILL PUSH FLUIDS IV AND MONITOR SYMPTOMS. - STILL WITH NAUSEA - PT STARTED ON SCOPALAMINE PATCH DEHYDRATION - IV FLUIDS - DECREASED TODAY FROM 150ML TO 75ML, MONITOR LABS OBSTIPATION WITH ABDOMINAL PAIN - PT HAS BEEN ON LACTULOSE, ADDED MIRALAX PER DR. LUPE ARRINGTON ENEMA PRODUCED SOME RESULTS, - RELISTOR CAUSED ABDOMINAL PAIN - - WILL GIVE SOAP SUDS ENEMA TODAY ELEVATED LIVER ENZYMES - NOW RESOLVED WITH HYDRATION JAUNDICE WITH MILD ELEVATED BILIRUBIN - IMPROVED WITH HYDRATION LIVER MASS VS ABSCESS - - PT'S BODY HABITUS WOULD NOT ALLOW FOR MRI - WILL LOOK AT DOING THIS OUTPATIENT. - PT ON METRONIDAZOLE AND CIPRO IV ELEVATED GLUCOSE - CHECK ACCUCHECKS AND WILL START ON SLIDING SCALE INSULIN (WILL NOT DC ON INSULIN OR OTHER TREATMENT FOR NOW - RECENT HGBA1C WAS 6.0) - SLIDNIG SCALE A HX OF BREAST CANCER - REASSURED PT THAT THE LESION ON LIVER IS NOT LIKELY TO BE METASTATIC BREAST CANCER, WILL GET OUTPT MRI. GERD - RX FOR CARAFATE - WILL GIVE AC/HS DEPRESSION - DC EFFEXOR AND START ON CYMBALTA ANTICIPATE DC TO HOME ON TUESDAY OR TUESDAY DEPENDING ON HOW PT RESPONDS TO CARAFATE AND SCOPALAMINE PATCH DVT PROPHYLAXIS WITH LOVENOX AND SCD'S GI PROPHYLAXIS WITH PROBIOTICS AND PPI Supervisory-Addendum Brief Verification & Attestation Participated in pt care: history, MDM, physical Personally performed: exam, history, MDM, supervision of care Care discussed with: Medical Student Procedures: n/a Results interpretation: Verified all documentation SEE MY DOCUMENTATION FOR FULL DETAILS. RAMESH LAMBERT MED STUDENT Jan 02, 2021 10:30 DOREEN LI MD Jan 02, 2021 16:34
[2021-01-02] MEDS ORDERED: FUROSEMIDE 40 MG/4 ML INJ (LASIX) IVP ONE (10:45)
[2021-01-02] MEDS ORDERED: SCOPOLAMINE 1.5 MG (TRANSDERM-SCOP) PATCH TD ONE (10:45)
[2021-01-02] MEDS ORDERED: HYDR-3817 PO (10:54)
[2021-01-02] MEDS ORDERED: METR-145 PO (10:54)
[2021-01-02] MEDS ORDERED: LACT1CAP7 PO (10:54)
[2021-01-02] MEDS ORDERED: PANT40TA2 PO (10:54)
[2021-01-02] MEDS ORDERED: DULO20CA19 PO (10:54)
[2021-01-02] MEDS ORDERED: SUCR1TAB36 PO (10:54)
[2021-01-02] MEDS ORDERED: ONDA4TAB11 PO (10:54)
[2021-01-02] MEDS ORDERED: SENN-145 PO (10:54)
[2021-01-02] MEDS ORDERED: POLY17PO54 PO (10:54)
[2021-01-02] MEDS ORDERED: CIPR500T5 PO (10:54)
--- NOTE | 2021-01-02 10:57 | D/C HH Face to Face Order ---
D/C Face to Face Orders Reconcile Patient Problems Problems Reviewed?: Yes Instructions for Patient [facility], Patient Instructions/FollowUp: [facility]: JEN Discharge Diet for Home: Regular Diet Patient Problems: INTRACTABLE NAUSEA DEHYDRATION OBSTIPATION ABDOMINAL PAIN ELEVATED LIVER ENZYMES JAUNDICE ELEVATED BILIRUBIN LIVER MASS ELEVATED GLUCOSE Goals for Patient: INCREASED STRENGTH, IMPROVED APPETITE, IMPROVED HYDRATION Patient Data-Allergies,Ht & Wt Patient Allergies: Coded Allergies: valacyclovir HCl (Verified Allergy, Unknown, 08/05/20) Home Health Need/Face to Face Date of Face to Face: Jan 02, 2021 Clinical Findings: Generalized weakness and fatigue, Muscle weakness I have seen Pt [id number]: Yes Discharged To: Home Diagnosis/Conditions: INTRACTABLE NAUSEA DEHYDRATION OBSTIPATION ABDOMINAL PAIN ELEVATED LIVER ENZYMES JAUNDICE ELEVATED BILIRUBIN LIVER MASS ELEVATED GLUCOSE Patient is Homebound due to: Muscle weakness Homebound Status Due to the above stated illness, injury or surgical procedure (medical condition or diagnosis) and associated clinical findings, the patient is homebound because of his/her inability to leave home except with aid of a supportive device and/or person AND leaving the home requires a considerable and taxing effort or is medically contraindicated. Pt req the following assistanc: Cane Home Health Nursing Orders Home Health Services Order: Nursing Services, Physical Therapy-Evaluate & Treat CHECK CBC, CMP ON 01/06/2021 Home Health Infusion Therapy Line Start Date: Dec 30, 2020 Therapy Orders Therapy Orders: PT to assess for OT Therapy Specific Orders: Increase strength/endurance Certify Stmt I certify that this patient is under my care and that I, a nurse practitioner or a physician; a field assistant working with me, had a face to face encounter that - meets the physician face to face encounter requirements with this patient as dated. Medication List: Active Scripts Active Senna S Tablet (Sennosides/Docusate Sodium) 1 Each Tablet 1 Each PO BID Duloxetine HCl 20 Mg Capsule. 20 Mg PO BID Protonix (Pantoprazole Sodium) 40 Mg Tablet. 40 Mg PO HS Carafate (Sucralfate) 1 Gm Tablet 1 Gm PO QID DISSOLVE INTO A SLURRY WITH 10ML OF WATER PRIOR TO TAKING THE MED Acidophilus-Pectin Capsule (Lactobacillus Acidophilus/Pect) 1 Each Capsule 2 Each PO TIDWM Polyethylene Glycol 3350 17 Gm Powd.pack 17 Gm PO BID Hydrocodone-Acetamin 7.5-325 (Hydrocodone/Acetaminophen) 1 Each Tablet 1 Each PO QID PRN Ondansetron Odt (Ondansetron) 4 Mg Tab.rapdis 4 Mg PO Q8H PRN Metronidazole 500 Mg Tablet 500 Mg PO TID Ciprofloxacin HCl 500 Mg Tablet 500 Mg PO BID 2 Days FILLED 12-24-2020 #14/7 DAY SUPPLY FINISH SUPPLY FROM HOME THEN STOP THE CIPRO Reported Lactulose 10 Gm/15 Ml Solution 15 Ml PO BID Bupropion HCl 75 Mg Tablet 75 Mg PO BID Lab results: Laboratory Tests Test 01/01/21 12:31 01/01/21 16:31 01/01/21 19:55 01/02/21 05:50 Range/Units Glucometer 212 H 194 H 158 H 70-110 MG/DL White Blood Count 10.8 4.3-11.0 10^3/uL Red Blood Count 3.41 L 3.80-5.11 10^6/uL Hemoglobin 9.6 L 11.5-16.0 g/dL Hematocrit 32 L 35-52 % Mean Corpuscular Volume 93 80-99 fL Mean Corpuscular Hemoglobin 28 25-34 pg Mean Corpuscular Hemoglobin Concent 30 L 32-36 g/dL Red Cell Distribution Width 15.0 H 10.0-14.5 % Platelet Count 209 130-400 10^3/uL Mean Platelet Volume 11.1 9.0-12.2 fL Sodium Level 134 L 135-145 MMOL/L Potassium Level 3.5 L 3.6-5.0 MMOL/L Chloride Level 101 98-107 MMOL/L Carbon Dioxide Level 25 21-32 MMOL/L Anion Gap 8 5-14 MMOL/L Blood Urea Nitrogen 7 7-18 MG/DL Creatinine 0.71 0.60-1.30 MG/DL Estimat Glomerular Filtration Rate 83 BUN/Creatinine Ratio 10 Glucose Level 195 H 70-105 MG/DL Calcium Level 8.1 L 8.5-10.1 MG/DL Corrected Calcium 9.5 8.5-10.1 MG/DL Total Bilirubin 0.9 0.1-1.0 MG/DL Aspartate Amino Transf (AST/SGOT) 20 5-34 U/L Alanine Aminotransferase (ALT/SGPT) 16 0-55 U/L Alkaline Phosphatase 163 H 40-136 U/L Total Protein 6.2 L 6.4-8.2 GM/DL Albumin 2.3 L 3.2-4.5 GM/DL Test 01/02/21 05:54 01/02/21 09:22 Range/Units Glucometer 182 H 161 H 70-110 MG/DL My orders: Orders - DOREEN LI MD Patient Visit (01/01/21 ) Pt Eval Moderate Complexity (01/01/21 ) General/Regular (01/02/21 Lunch) Scopolamine Patch (Transderm-Scop Patch) (01/02/21 10:45) Sucralfate Tablet (Carafate Tablet) (01/02/21 11:00) Duloxetine Capsule (Cymbalta Capsule) (01/02/21 10:45) Soap Suds Enema (01/02/21 10:37) Furosemide Injection (Lasix Injection) (01/02/21 10:45) Potassium Cl 10meq/50ml Ivpb (Kcl 10 Meq (01/02/21 10:45) DOREEN LI MD Jan 02, 2021 10:57
[2021-01-02] MEDS: POTASSIUM CL 10MEQ/50ML IVPB 50 ML IV SCH ×2 (11:48→11:50)
[2021-01-02] MEDS: DULoxetine 20 MG (CYMBALTA) CAP PO SCH ×2 (11:48→20:19)
[2021-01-02] MEDS: SUCRALFATE 1 GM (CARAFATE) TAB PO SCH ×3 (11:48→20:19)
--- NOTE | 2021-01-02 12:54 | Progress Note ---
Subjective Date Seen by a Provider: Jan 02, 2021 Time Seen by a Provider: 12:00 Subjective/Events-last exam doing ok. did have some nausea after starting regular diet however mult ifactorial. pt s/p recent lap samy and SBD and pancreatic stent placement. recommend low fat diet. Focused Exam Lactate Level 12/30/20 14:15: Lactic Acid Level 1.71 Objective Exam Vital Signs Date Time Temp Pulse Resp B/P (MAP) Pulse Ox O2 Delivery O2 Flow Rate FiO2 01/02/21 08:00 Room Air 01/02/21 07:43 36.0 82 18 111/70 (84) 96 Room Air 01/01/21 23:52 36.4 95 18 117/70 (86) Room Air 01/01/21 20:00 Room Air 01/01/21 15:31 37.0 92 20 111/76 (88) 96 Room Air I & O 01/02/21 06:59 Intake Total 1950 ml Balance 1950 ml Capillary Refill : General Appearance: No Apparent Distress HEENT: PERRL/EOMI Respiratory: Chest Non Tender, Normal Breath Sounds Cardiovascular: Regular Rate, Rhythm Gastrointestinal: normal bowel sounds, soft, tenderness Extremity: Normal Capillary Refill Neurologic/Psychiatric: Alert, Oriented x3 Skin: Normal Color Lymphatic: No Adenopathy Results Lab Laboratory Tests 01/01/21 16:31: Glucometer 194H 01/01/21 19:55: Glucometer 158H 01/02/21 05:50: White Blood Count 10.8, Red Blood Count 3.41L, Hemoglobin 9.6L, Hematocrit 32L, Mean Corpuscular Volume 93, Mean Corpuscular Hemoglobin 28, Mean Corpuscular Hemoglobin Concent 30L, Red Cell Distribution Width 15.0H, Platelet Count 209, Mean Platelet Volume 11.1, Sodium Level 134L, Potassium Level 3.5L, Chloride Level 101, Carbon Dioxide Level 25, Anion Gap 8, Blood Urea Nitrogen 7, Creatinine 0.71, Estimat Glomerular Filtration Rate 83, BUN/Creatinine Ratio 10, Glucose Level 195H, Calcium Level 8.1L, Corrected Calcium 9.5, Total Bilirubin 0.9, Aspartate Amino Transf (AST/SGOT) 20, Alanine Aminotransferase (ALT/SGPT) 16, Alkaline Phosphatase 163H, Total Protein 6.2L, Albumin 2.3L 01/02/21 05:54: Glucometer 182H 01/02/21 09:22: Glucometer 161H 01/02/21 12:13: Glucometer 213H Microbiology 12/30/20 Blood Culture - Preliminary, Resulted No growth Assessment/Plan Assessment/Plan Assess & Plan/Chief Complaint constipation s/p lap samy and ERCP with 2 stent placement. recommend low fat diet at home. continue ambulating. agree with one more enema/continuation PO stool softener or laxative due to remaining constipated stool at hepatic flexure. home when medically stable. SILVIA ANDRADE MD Jan 02, 2021 12:54
[2021-01-02] MEDS ORDERED: FUROSEMIDE 40 MG/4 ML INJ (LASIX) ONE (14:35)
--- NOTE | 2021-01-02 15:39 | Physical Therapy Daily Note ---
PT Daily Note-Current Subjective Pt in bed upon arrival w/ RN in room, pt agrees to tx. Pt states she hasn't been feeling well and doesn't think she should be amb. RN confirmed and stated pt has been getting dizzy when standing and amb wasn't a good idea for tx at this time. Mental Status Patient Orientation: Person, Place, Time, Situation Transfers SCALE: Activities may be completed with or without assistive devices. 7-Rthjogpxmm-nvsbyvy completes the activity by him/herself with no assistance from a helper. 5-Set-up or Clean-up Assistance-helper sets up or cleans up; patient completes activity. Bethany assists only prior to or following the activity. 4-Supervision or Touching Assistance-helper provides verbal cues and/or touching/steadying and/or contact guard assistance as patient completes activity. Assistance may be provided throughout the activity or intermittently. 3-Partial/Moderate Assistance-helper does LESS THAN HALF the effort. Bethany lifts, holds or supports trunk or limbs, but provides less than half the effort. 2-Substantial/Maximal Assistance-helper does MORE THAN HALF the effort. Bethany lifts or holds trunk or limbs and provides more than half the effort. 9-Twohmpstm-abqbrf does ALL the effort. Patient does none of the effort to complete the activity. Or, the assistance of 2 or more helpers is required for the patient to complete the activity. If activity was not attempted, code reason: 7-Patient Refused. 9-Not Applicable-not attempted and the patient did not perform the activity before the current illness, exacerbation or injury. 10-Not Attempted due to Environmental Limitations-(lack of equipment, weather restraints, etc.). 88-Not Attempted due to Medical Conditions or Safety Concerns. Exercises Supine Ex: Bridging, Ankle pumps, Glut sets, Heel Slides, Straight leg raise, Hip abd/add Supine Reps: 10 Treatments Pt in bed upon arrival and completes supine ex. Pt stays in bed post tx with all needs met, call light in hand. Assessment Current Status: Good Progress Pt limited d/t feeling ill PT Shelter Goals Shelter Goals PT Shelter Goals Time Frame: Jan 08, 2021 Roll Left & Right (QC): 6 Sit to Lying (QC): 3 Lying-Sitting on Side/Bed(QC): 3 Sit to Stand (QC): 6 Chair/Wtf-gz-Yvcfq Xfer(QC): 6 Walk 10 feet (QC): 6 Walk 50ft with 2 Turns (QC): 6 Walk 150 ft (QC): 6 PT Plan Treatment/Plan Treatment Plan: Continue Plan of Care Treatment Plan: Bed Mobility, Education, Functional Activity Altaf, Functional Strength, Gait, Safety, Therapeutic Exercise, Transfers Treatment Duration: Jan 08, 2021 Frequency: 6 times per week Estimated Hrs Per Day: .25 hour per day Patient and/or Family Agrees t: Yes Time/GCodes Time In: 1438 Time Out: 1450 Total Billed Treatment Time: 12 Total Billed Treatment 1, EX REN[place]ALLIE CERTIFIED ART THERAPIST Jan 02, 2021 15:39
[2021-01-02 15:40] VITALS: BP 132/71
[2021-01-02] MEDS: ENOXAPARIN 40 MG/0.4 ML (LOVENOX) SYR SC SCH (20:18)
[2021-01-02 23:08] VITALS: BP 136/76
[2021-01-03] MEDS: HYDROcodone/APAP 7.5 MG/325 MG (LORTAB, LORCET PLUS) TABLET PO PRN (00:57)
[2021-01-03 03:25] LABS: HEMATOCRIT 33 % (35-52); MEAN CORPUSCULAR HEMOGLOBIN 28 pg (25-34); MEAN CORPUSCULAR HGB CONC 31 g/dL (32-36); MEAN CORPUSCULAR VOLUME 93 fL (80-99); MEAN PLATELET VOLUME 10.7 fL (9.0-12.2); PLATELET COUNT 212 10^3/uL (130-400)
[2021-01-03 03:49] LABS: ALBUMIN 2.4 GM/DL (3.2-4.5)
[2021-01-03 03:50] LABS: POTASSIUM 3.5 MMOL/L (3.6-5.0)
[2021-01-03 03:51] LABS: CALCIUM 8.2 MG/DL (8.5-10.1)
[2021-01-03 03:52] LABS: TOTAL PROTEIN 6.3 GM/DL (6.4-8.2)
[2021-01-03 03:55] LABS: CREATININE SERUM 0.72 MG/DL (0.60-1.30)
[2021-01-03] MEDS: inSUlin ASPART (NovoLOG) 1 UNIT/0.01 ML (CHARGE PER UNIT) SC SCH (05:44)
[2021-01-03] MEDS: SUCRALFATE 1 GM (CARAFATE) TAB PO SCH ×2 (05:46→11:30)
[2021-01-03] MEDS: metroNIDAZOLE 500MG/100ML IVPB 100 ML IV SCH (05:47)
[2021-01-03 07:26] VITALS: BP 128/59
[2021-01-03] MEDS: polyethylene glycoL POWDER 17 GM (MIRALAX) PACK PO SCH (08:54)
[2021-01-03] MEDS: DULoxetine 20 MG (CYMBALTA) CAP PO SCH (08:54)
[2021-01-03] MEDS: PANTOPRAZOLE 40 MG (PROTONIX) VIAL IV SCH (08:55)
[2021-01-03] MEDS: LACTOBACILLUS ACIDOPHILUS (PROBIOTIC) CAPSULE PO SCH (08:55)
[2021-01-03] MEDS: ONDANSETRON 4 MG/2 ML (SDV) Z0FRAN IVP PRN (08:55)
--- NOTE | 2021-01-03 10:04 | Discharge Summary ---
Diagnosis/Chief Complaint Date of Admission Dec 30, 2020 at 13:08 Date of Discharge Discharge Date: Jan 03, 2021 Discharge Time: 1200 Primary Care Divya Garcia MD Discharge Summary Procedures/Consulations Dr Pena Discharge Physical Exam Allergies: Coded Allergies: valacyclovir HCl (Verified Allergy, Unknown, 08/05/20) Vitals & I&Os Vital Signs Date Time Temp Pulse Resp B/P (MAP) Pulse Ox O2 Delivery O2 Flow Rate FiO2 01/03/21 11:30 01/03/21 08:00 Room Air 01/03/21 07:26 35.4 87 20 95 General Appearance: No Apparent Distress, WD/WN, Obese Cardiovascular: Regular Rate, Rhythm, No Murmur Gastrointestinal: Normal Bowel Sounds, Soft Neurologic/Psychiatric: Alert, Oriented x3 Hospital Course Patient is 60-year-old female who was admitted due to constipation and severe dehydration. She had a laparoscopic cholecystectomy done a couple of weeks ago and had not been able to tolerate much orally following that. She had gotten very dehydrated and was unable to take anything in. She was admitted for IV fluid resuscitation and intractable nausea vomiting. She did well and was able to be discharged home with home health to follow-up with her primary care physician, Dr. Garcia. Labs (last 24 hrs) Microbiology 12/30/20 Blood Culture - Preliminary, Resulted No growth Patient resulted labs reviewed. Pending Labs Discussion & Recommendations Discharge Planning: >30 minutes discharge planning Discharge Home Medications: Active Scripts Active Senna S Tablet (Sennosides/Docusate Sodium) 1 Each Tablet 1 Each PO BID Duloxetine HCl 20 Mg Capsule. 20 Mg PO BID Protonix (Pantoprazole Sodium) 40 Mg Tablet. 40 Mg PO HS Carafate (Sucralfate) 1 Gm Tablet 1 Gm PO QID DISSOLVE INTO A SLURRY WITH 10ML OF WATER PRIOR TO TAKING THE MED Acidophilus-Pectin Capsule (Lactobacillus Acidophilus/Pect) 1 Each Capsule 2 Each PO TIDWM Polyethylene Glycol 3350 17 Gm Powd.pack 17 Gm PO BID Hydrocodone-Acetamin 7.5-325 (Hydrocodone/Acetaminophen) 1 Each Tablet 1 Each PO QID PRN Ondansetron Odt (Ondansetron) 4 Mg Tab.rapdis 4 Mg PO Q8H PRN Metronidazole 500 Mg Tablet 500 Mg PO TID Ciprofloxacin HCl 500 Mg Tablet 500 Mg PO BID 2 Days FILLED 12-24-2020 #14/7 DAY SUPPLY FINISH SUPPLY FROM HOME THEN STOP THE CIPRO Instructions to patient/family Please see electronic discharge instructions given to patient. ARIN URBINA MD Jan 03, 2021 10:04
[2021-01-03] MEDS: NS IV 1000 ML 1,000 ML IV SCH (10:09)
[2021-01-03] MEDS: CIPROFLOXACIN IV 400MG/200ML 200 ML IV SCH (10:09)
[2021-01-03] MEDS ORDERED: ENOXAPARIN 40 MG/0.4 ML (LOVENOX) SYR SC SCH (11:30)
== END 2021-01-03 11:30 | disposition home health service (06) | DRG 391 ==
LOC: 4TH 12:36 → OBSVTOIN 13:08 → 4TH 01-02 16:50
PROVIDERS: ADMIT Family Medicine; ATTEND Family Medicine
DX: K59.09 Other constipation (principal); K75.0 Abscess of liver; E86.0 Dehydration; E83.39 Other disorders of phosphorus metabolism; D72.829 Elevated white blood cell count, unspecified; I10 Essential (primary) hypertension; F41.9 Anxiety disorder, unspecified; F32.9 Major depressive disorder, single episode, unspecified; K57.90 Diverticulosis of intestine, part unspecified, without perforation or abscess without bleeding; D64.9 Anemia, unspecified; E87.6 Hypokalemia; Z85.3 Personal history of malignant neoplasm of breast; Z88.8 Allergy status to other drugs, medicaments and biological substances
CPT/HCPCS: 36410; 36415; 74019; 76937; 80053; 82150; 82728; 82947; 83540; 83550; 83605; 83690; 83735; 85007; 85027; 85652; 86141; 87040; 99211; G0378

== ENCOUNTER 2021-01-14 16:22 | Inpatient (IN) | payer OTHER ==
[~2021-01-14] VITALS: Ht 172.7 cm; Wt 140.5 kg
[~2021-01-14 16:22] MED LIST changes: +BUPR-168 PO; +CIPR500T5 PO; +DULO20CA19 PO; +LACT10SO33 PO; +LACT1CAP7 PO; +METR-145 PO; +ONDA4TAB11 PO; +PANT40TA2 PO; +POLY17PO54 PO; +SENN-145 PO; +SUCR1TAB36 PO
[2021-01-14] MEDS ORDERED: LORazepam INJ 2 MG/ML (ATIVAN) VIAL IVP PRN (17:00)
[2021-01-14] MEDS ORDERED: PIPERACILLIN/TAZO 4.5 GM/NS 100 ML IV ONE ×2 (17:00)
[2021-01-14 17:09] VITALS: BP 124/60
[2021-01-14] MEDS ORDERED: IOHEXOL 350 MG/ML 100 ML (OMNIPAQUE 350) VIAL IV ONE (17:15)
[2021-01-14] MEDS ORDERED: NS 100 ML (IVPB) BAG IV ONE (17:15)
[2021-01-14] MEDS ORDERED: HOLD METFORMIN - RECEIVED CONTRAST 20 ML VIAL IV SCH (17:15)
[2021-01-14] MEDS: NS IV 1000 ML 1,000 ML IV SCH (17:46)
[2021-01-14 18:01] LABS: BASOPHILS % (AUTO) 0 % (0-10); EOSINOPHILS % (AUTO) 0 % (0-10); HEMATOCRIT 34 % (35-52); HEMOGLOBIN 10.7 g/dL (11.5-16.0); LYMPHOCYTES # (AUTO) 1.2 10^3/uL (1.0-4.0); LYMPHOCYTES % (AUTO) 7 % (12-44); MEAN CORPUSCULAR HEMOGLOBIN 28 pg (25-34); MEAN CORPUSCULAR HGB CONC 32 g/dL (32-36); MEAN CORPUSCULAR VOLUME 89 fL (80-99); MONOCYTES # (AUTO) 0.9 10^3/uL (0.0-1.0); MONOCYTES % (AUTO) 5 % (0-12); NEUTROPHILS # (AUTO) 15.4 10^3/uL (1.8-7.8); NEUTROPHILS % (AUTO) 87 % (42-75); PLATELET COUNT 334 10^3/uL (130-400); WHITE BLOOD COUNT 17.7 10^3/uL (4.3-11.0)
[2021-01-14 18:15] LABS: ALBUMIN 2.4 GM/DL (3.2-4.5); LYMPHOCYTES % (MANUAL) 5 %; MONOCYTES % (MANUAL) 1 %; NEUTROPHILS % (MANUAL) 94 %; POTASSIUM 3.5 MMOL/L (3.6-5.0); RBC MORPH NORMAL
[2021-01-14 18:16] LABS: CALCIUM 8.9 MG/DL (8.5-10.1)
[2021-01-14 18:19] LABS: BILIRUBIN,TOTAL 1.3 MG/DL (0.1-1.0)
[2021-01-14 18:21] LABS: CREATININE SERUM 0.66 MG/DL (0.60-1.30)
[2021-01-14] MEDS: fentaNYL INJ 100 MCG/2 ML AMP IVP PRN ×2 (18:34→21:47)
--- NOTE | 2021-01-14 19:33 | Diagnostic Imaging Report ---
PROCEDURE: CT abdomen and pelvis with contrast. TECHNIQUE: Multiple contiguous axial images were obtained through the abdomen and pelvis after administration of intravenous contrast. Auto Exposure Controls were utilized during the CT exam to meet ALARA standards for radiation dose reduction. All CT scans use one or more of the following dose optimizing techniques: automated exposure control, MA and/or KvP adjustment based on patient size and exam type or iterative reconstruction. INDICATION: Hepatic abscess. EXAMINATION: There has been development of mild bilateral pleural fluid. Note is made of internal biliary stenting. Gallbladder is surgically absent. Extensive heterogeneous density is again seen throughout the liver. The splenic, portal and hepatic veins are somewhat poorly visualized, may be due to small size as well as suboptimal timing. Heterogeneity of liver parenchyma may in part be related to perfusion abnormality. There is mild prominence of the pancreatic head although this is not significantly changed. The adrenal glands remain significantly enlarged similar to the previous study. No focal renal abnormality is identified. Gallbladder is absent. There is mild pelvic free fluid. No organized fluid collection is identified. IMPRESSION: Development of bilateral pleural fluid with continued pneumobilia with biliary stent in place. There is heterogeneous perfusion to the liver. This could in part be related to arterial and/or hepatic venous flow abnormality. Clinical correlation and possible MRI follow up would be of use. Consideration could be given to CTA of the abdomen with hepatic protocol to include arterial, portal venous and delayed imaging. Dictated by: Dictated on workstation # [id number]
[2021-01-14 19:57] VITALS: BP 106/52
--- NOTE | 2021-01-14 20:51 | History & Physical ---
History of Present Illness History of Present Illness Reason for visit/HPI BRIANA IS A 60 Y/O FEMALE WHO IS KNOWN TO ME FROM CLINIC AND PREVIOUS HOSPITALIZATIONS. BRIANA PRESENTED TO THE OFFICE FOR A ONE WEEK FOLLOW UP AFTER HAVING BEEN HOME POST HOSPITALIZATION FOR NAUSEA AND DEHYDRATION. BRIANA HAS FAILED OUTPATIENT TREATMENT SHE HAS BECOME WEAKER, BEEN UNABLE TO EAT OR DRINK DUE TO NAUSEA. SHE HAD LABS FROM DR. ANDRADE'S OFFICE WHICH SHOWED AN ELEVATION OF HER WHITE COUNT AND A FURTHER ELEVATION OF HER ALK PHOS. SHE REPORTS THAT SHE IS JUST TOO WEAK AND NAUSEATED TO GET UP DURING THE DAY TO EAT OR DRINK, SHE IS SORE ALL OVER AND CANNOT COMFORTABLY SIT OR LAY DOWN. Date of Admission Jan 14, 2021 at 16:22 Date Seen by a Provider: Jan 14, 2021 Time Seen by a Provider: 15:30 Attending Physician Doreen Garcia MD Admitting Physician Doreen Garcia MD Consult DR. ANDRADE Allergies and Home Medications Allergies Coded Allergies: valacyclovir HCl (Verified Allergy, Unknown, 01/14/21) Patient Home Medication List Home Medication List Reviewed: Yes Ciprofloxacin HCl (Ciprofloxacin HCl) 500 Mg Tablet, 500 MG PO BID Prescribed by: DOREEN GARCIA on 01/02/211053 Last Action: Held Hydrocodone/Acetaminophen (Hydrocodone-Acetamin 7.5-325) 1 Each Tablet, 1 EACH PO QID PRN for PAIN-MODERATE (5-7) Prescribed by: DOREEN GARCIA on 01/02/211053 Last Action: Held Lactobacillus Acidophilus/Pect (Acidophilus-Pectin Capsule) 1 Each Capsule, 2 EACH PO TIDWM Prescribed by: DOREEN GARCIA on 01/02/211053 Last Action: Held Metronidazole (Metronidazole) 500 Mg Tablet, 500 MG PO TID Prescribed by: DOREEN GARCIA on 01/02/211053 Last Action: Held Ondansetron (Ondansetron Odt) 4 Mg Tab.rapdis, 4 MG PO Q8H PRN for NAUSEA/VOMITING-1ST LINE Prescribed by: DOREEN GARCIA on 01/02/211053 Last Action: Held Pantoprazole Sodium (Protonix) 40 Mg Tablet.dr, 40 MG PO HS Prescribed by: DOREEN GARCIA on 01/02/211053 Last Action: Held Polyethylene Glycol 3350 (Polyethylene Glycol 3350) 17 Gm Powd.pack, 17 GM PO BID Prescribed by: DOREEN GARCIA on 01/02/211053 Last Action: Held Sennosides/Docusate Sodium (Senna S Tablet) 1 Each Tablet, 1 EACH PO BID Prescribed by: DOREEN GARCIA on 01/02/211053 Last Action: Held Sucralfate (Carafate) 1 Gm Tablet, 1 GM PO QID Prescribed by: DOREEN GARCIA on 01/02/211053 Last Action: Held Discontinued Medications Duloxetine HCl (Duloxetine HCl) 20 Mg Capsule.dr, 20 MG PO BID Prescribed by: DOREEN GARCIA on 01/02/211053 Last Action: Discontinued Past Wckmwth-Kfktlz-Zpasxk Hx Patient Social History Marrital Status: single Number of Children: 1 Number of living children: 1 Living Status: LIVES WITH HER SISTER Employed/Student: employed Tobacco Use?: No Smoking Status: Never a Smoker Use of E-Cig and/or Vaping dev: No Substance use?: No Alcohol Use?: No Pt feels they are or have been: No Immunizations Up To Date Date of Influenza Vaccine: Dec 24, 2010 First/Initial COVID19 Vaccinat: March 2020 Second COVID19 Vaccination Scott: April 2020 Tetanus Booster (TDap): Less Than 5 Years Hepatitis A: Yes Hepatitis B: Yes Seasonal Allergies Seasonal Allergies: No Current Status status: No status: No Advance Directives: No Communicates: Verbally Primary Language: Honduran Preferred Spoken Language: Honduran Is interpretation needed?: No Past Medical History Surgeries: Breast, Gallbladder, Orthopedic Currently Using CPAP: No Currently Using BIPAP: No Hypertension Sexually Transmitted Disease: No HIV/AIDS: No Arthritis Diabetes, Non-Insulin dep Are Your Blood Sugars Over 250: No Loss of Vision: Denies Hearing Impairment: Denies Breast Did You Recieve Any Treatments: Yes What Type of Treatment Did You: Chemotherapy, Radiation, Surgical Intervention Blood Disorders: No Adverse Reaction/Blood Tranf: No Family Medical History Reviewed and Corrections made Heart Disease, Cancer, Hypertension, Other Conditions/Hx (EXTENSIVE FAMILY HISTORY OF GALLBLADDER RELATED ILLNESSES) Review of Systems Constitutional: No chills, No diaphoresis, No dizziness, No fever; malaise, weakness, weight loss EENTM: No hoarseness, No throat pain Respiratory: No cough; dyspnea on exertion; No short of breath Cardiovascular: No chest pain, No palpitations Gastrointestinal: RUQ, LUQ, abdominal pain, diarrhea, loss of appetite, nausea, vomiting Genitourinary: no symptoms reported Musculoskeletal: muscle weakness Skin: other (SORES ON BOTTOM) Psychiatric/Neurological: Anxiety, Depressed, Weakness All Other Systems Reviewed Negative Unless Noted: Yes Physical Exam Vital Signs Vital Signs - First Documented 01/14/21 01/14/21 16:56 17:09 Temp 36.9 Pulse 116 Resp 20 B/P (MAP) 124/60 (81) Pulse Ox 94 O2 Delivery Room Air Capillary Refill : Height, Weight, BMI Height: '" Weight: lbs. oz. kg; 44.25 BMI Method:Stated General Appearance: WD/WN, Mild Distress Eyes: Bilateral Eye Normal Inspection, Bilateral Eye PERRL, Bilateral Eye EOMI HEENT: PERRL/EOMI, Pharynx Normal Neck: Full Range of Motion, Normal Inspection, Non Tender, Supple Respiratory: Chest Non Tender, Lungs Clear, No Accessory Muscle Use, No Respiratory Distress, Decreased Breath Sounds (IN BASES) Cardiovascular: Regular Rate, Rhythm Gastrointestinal: Soft, Abnormal Bowel Sounds, Tenderness (ruq/EPIGASTRIUM) Rectal: Deferred Extremity: Pedal Edema (2+BILATERAL LE AT ANKLES) Neurologic/Psychiatric: Alert, Oriented x3, No 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, 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 LUPE SIMON, BLOOD CULTURES - CT SCAN OF ABD/PELVIS ORDERED - REPORT FOLLOWS: EXAMINATION: There has been development of mild bilateral pleural fluid. Note is made of internal biliary stenting. Gallbladder is surgically absent. Extensive heterogeneous density is again seen throughout the liver. The splenic, portal and hepatic veins are somewhat poorly visualized, may be due to small size as well as suboptimal timing. Heterogeneity of liver parenchyma may in part be related to perfusion abnormality. There is mild prominence of the pancreatic head although this is not significantly changed. The adrenal glands remain sig nificantly enlarged similar to the previous study. No focal renal abnormality is identified. Gallbladder is absent. There is mild pelvic free fluid. No organized fluid collection is identified. IMPRESSION: Development of bilateral pleural fluid with continued pneumobilia with biliary stent in place. There is heterogeneous perfusion to the liver. This could in part be related to arterial and/or hepatic venous flow abnormality. Clinical correlation and possible MRI follow up would be of use. Consideration could be given to CTA of the abdomen with hepatic protocol to include arterial, portal venous and delayed imaging. - I DISCUSSED THE SCAN WITH DR. EUBANKS - HE RECOMMENDED MRI IMAGING OF THE LIVER VASCULATURE THERE IS CONCERN FOR SLUGGISH FLOW OF THE ARTERIES AND THE WORRY WOULD BE THAT THERE HAS BEEN INJURY TO THE VASCULATURE - HE NOTED THAT THE STUDY WAS SOMEWHAT POOR DUE TO HER SLOW VASCULAR FLOW BUT DID NOT SEE A CLOT PRESENT BASED ON THE IMAGING WITH FLOW THROUGH THE ARTERIES. HE FELT LIKE AN ABSCESS WAS LESS LIKELY, BUT THE POOR PERFUSION OF THE LIVER LED TO DECREASED IMAGING QUALITY. HE RECOMMENDED NUCLEAR STUDY WITH TRIPLE PHASE LIVER PROTOCOL WEIGHT LOSS DUE TO ANOREXIA AND NAUSEA/EMESIS - - DIETARY CONSULT - START REGLAN AT LOW DOSE - ADD PRN ZOFRAN IF REGLAN NOT CONTROLLING SYMPTOMS. MALAISE, WEAKNESS AND FALLING EPISODES - CONSULT TO PHYSICAL AND OCCUPATIONAL THERAPY WELL INPT REHAB EVAL. DIET CONTROLLED DIABETES MELLITUS - AGAIN -CONSULT DIETARY, MONITOR FSBS ONCE TAKING IN MORE PO ANEMIA - REPEAT LABS HYPOKALEMIA - REPLENISH WITH IV POTASSIUM DVT PROPHYLAXIS WITH SCD'S AND LOVENOX GI PROPHYLAXIS WITH PROBIOTICS AND PROTONIX. Admission Diagnosis ACUTE INJURY HEPATITIS ELEVATED ALKALINE PHOSPHATASE LEUKOCYTOSIS HYPERBILIRUBINEMIA WEIGHT LOSS MALAISE ANOREXIA NAUSEA EMESIS WEAKNESS AND FALLING EPISODES DIET CONTROLLED DIABETES MELLITUS ANEMIA HYPOKALEMIA Admission Status: Inpatient Order (span 2 midnights) Reason for Inpatient Admission: INPATIENT ADMISSION FOR AT LEAST 2 MIDNIGHTS WE HYDRATE PT, CONTROL NAUSEA, EMESIS AND MONITOR LIVER FUNCTION AND CONTROL OF ACUTE HEPATIC INFECTION DOREEN GARCIA MD Jan 14, 2021 20:51
[2021-01-14] MEDS ORDERED: PANTOPRAZOLE 40 MG (PROTONIX) VIAL IV ONE (21:00)
[2021-01-14] MEDS: POTASSIUM CL 10MEQ/50ML IVPB 50 ML IV SCH ×3 (21:39→23:30)
[2021-01-14] MEDS: ENOXAPARIN 40 MG/0.4 ML (LOVENOX) SYR SC SCH (21:40)
[2021-01-14] MEDS: METOCLOPRAMIDE INJ 10 MG/2 ML (REGLAN) IVP SCH (21:41)
[2021-01-14] MEDS: LORazepam INJ 2 MG/ML (ATIVAN) VIAL IVP SCH (21:47)
[2021-01-14] MEDS: PIPERACILLIN/TAZO 4.5 GM/NS 100 ML IV SCH ×2 (22:21)
[2021-01-14 23:30] VITALS: BP 108/58
[2021-01-15] VITALS (7 sets, daily range): BP systolic 73–121; BP diastolic 50–76
[2021-01-15] MEDS: fentaNYL INJ 100 MCG/2 ML AMP IVP PRN ×6 (00:38→15:23)
[2021-01-15] MEDS: POTASSIUM CL 10MEQ/50ML IVPB 50 ML IV SCH (00:40)
[2021-01-15] MEDS: NS IV 1000 ML 1,000 ML IV SCH ×3 (03:00→20:19)
[2021-01-15 06:11] LABS: HEMATOCRIT 32 % (35-52); MEAN CORPUSCULAR HEMOGLOBIN 28 pg (25-34); MEAN CORPUSCULAR HGB CONC 31 g/dL (32-36); MEAN CORPUSCULAR VOLUME 89 fL (80-99); MEAN PLATELET VOLUME 10.9 fL (9.0-12.2); PLATELET COUNT 236 10^3/uL (130-400); WHITE BLOOD COUNT 16.1 10^3/uL (4.3-11.0)
[2021-01-15 06:23] LABS: ALBUMIN 2.2 GM/DL (3.2-4.5)
[2021-01-15 06:24] LABS: POTASSIUM 3.9 MMOL/L (3.6-5.0)
[2021-01-15 06:25] LABS: CALCIUM 8.4 MG/DL (8.5-10.1)
[2021-01-15 06:26] LABS: TOTAL PROTEIN 6.2 GM/DL (6.4-8.2)
[2021-01-15 06:28] LABS: BILIRUBIN,TOTAL 1.1 MG/DL (0.1-1.0)
[2021-01-15 06:30] LABS: CREATININE SERUM 0.65 MG/DL (0.60-1.30)
[2021-01-15] MEDS: METOCLOPRAMIDE INJ 10 MG/2 ML (REGLAN) IVP SCH ×3 (06:33→22:40)
[2021-01-15] MEDS: PIPERACILLIN/TAZO 4.5 GM/NS 100 ML IV SCH ×6 (06:33→23:11)
--- NOTE | 2021-01-15 08:43 | Progress Note ---
RAMESH LAMBERT MED STUDENT 01/15/21 0843: Subjective Date Seen by a Provider: Jan 15, 2021 Time Seen by a Provider: 08:10 Subjective/Events-last exam Pt seated in chair, has been tolerating some water PO, but nausea persisting. Pain from her back, abd, and pressure sores are her primary source of discomfort right now. Pt going for triple phase CTA this am. Review of Systems General: No Night Sweats; Fatigue HEENT: No Head Aches, No Dysphasia Pulmonary: No Dyspnea, No Cough Cardiovascular: Edema; No: Chest Pain, Palpitations Gastrointestinal: Nausea, Abdominal Pain; No: Diarrhea, Constipation Genitourinary: No Dysuria, No Incontinence Musculoskeletal: back pain Neurological: Weakness; No: Change in speech, Confusion Psych: pt has depressed affect, no AMS, no psychosis Focused Exam Lactate Level 01/14/21 17:34: Lactic Acid Level 1.60 Objective Exam Last Set of Vital Signs Vital Signs Date Time Temp Pulse Resp B/P (MAP) Pulse Ox O2 Delivery O2 Flow Rate FiO2 01/15/21 07:49 36.8 108 20 73/51 (58) 98 Room Air Capillary Refill : I&O Intake and Output 01/15/21 00:00 Intake Total 400 ml Balance 400 ml Intake Oral 300 ml IV Total 100 ml # Voids 1 Daily Weight Change No General: Alert, Oriented X3, Cooperative, No Acute Distress HEENT: EOMI, Mucous Memb Moist/[place] Neck: Supple, No Thyromegaly Lungs: Clear to Auscultation, Normal Air Movement Heart: Regular Rate, No Murmurs Abdomen: Soft, No Masses, Other (tenderness in all four quadrants. ) Extremities: No Clubbing, Other (+4 edema in b/l LE) Skin: Other (bed sores developing over posterior pressure sites ) Neuro: Normal Speech, Cranial Nerves 3-12 NL Psych/Mental Status: Mental Status NL Results Lab Laboratory Tests 01/14/21 17:34: White Blood Count 17.7H, Red Blood Count 3.82, Hemoglobin 10.7L, Hematocrit 34L, Mean Corpuscular Volume 89, Mean Corpuscular Hemoglobin 28, Mean Corpuscular Hemoglobin Concent 32, Red Cell Distribution Width 16.0H, Platelet Count 334, Mean Platelet Volume 11.0, Immature Granulocyte % (Auto) 1, Neutrophils (%) (Auto) 87H, Lymphocytes (%) (Auto) 7L, Monocytes (%) (Auto) 5, Eosinophils (%) (Auto) 0, Basophils (%) (Auto) 0, Neutrophils # (Auto) 15.4H, Lymphocytes # (Auto) 1.2, Monocytes # (Auto) 0.9, Eosinophils # (Auto) 0.0, Basophils # (Auto) 0.0, Immature Granulocyte # (Auto) 0.2H, Neutrophils % (Manual) 94, Lymphocytes % (Manual) 5, Monocytes % (Manual) 1, Blood Morphology Comment NORMAL, Sodium Level 136, Potassium Level 3.5L, Chloride Level 93L, Carbon Dioxide Level 29, Anion Gap 14, Blood Urea Nitrogen 13, Creatinine 0.66, Estimat Glomerular Filtration Rate 91, BUN/Creatinine Ratio 20, Glucose Level 117H, Lactic Acid Level 1.60, Calcium Level 8.9, Corrected Calcium 10.2H, Total Bilirubin 1.3H, Aspartate Amino Transf (AST/SGOT) 54H, Alanine Aminotransferase (ALT/SGPT) 27, Alkaline Phosphatase 507H, Total Protein 7.0, Albumin 2.4L 01/14/21 17:38: 01/15/21 05:45: White Blood Count 16.1H, Red Blood Count 3.58L, Hemoglobin 10.0L, Hematocrit 32L , Mean Corpuscular Volume 89, Mean Corpuscular Hemoglobin 28, Mean Corpuscular Hemoglobin Concent 31L, Red Cell Distribution Width 15.9H, Platelet Count 236, Mean Platelet Volume 10.9, Sodium Level 137, Potassium Level 3.9, Chloride Level 95L, Carbon Dioxide Level 30, Anion Gap 12, Blood Urea Nitrogen 11, Creatinine 0.65, Estimat Glomerular Filtration Rate 92, BUN/Creatinine Ratio 17, Glucose Level 122H, Calcium Level 8.4L, Corrected Calcium 9.8, Total Bilirubin 1.1H, Aspartate Amino Transf (AST/SGOT) 35H, Alanine Aminotransferase (ALT/SGPT) 21, Alkaline Phosphatase 413H, Total Protein 6.2L, Albumin 2.2L Assessment/Plan Assessment/Plan Assess & Plan/Chief Complaint Cholestatic Pattern Hepatic Injury Leukocytosis Elevated alk phos Intractable nausea PSH: lap choley in October. After the lap choley she had multiple retained gallstones discovered, and subsequently x2 duct stent placement via ERCP. lactic acid 1.6 at admission. 01/14 CT abd/pelvis: diffuse heterogeneity and delayed contrast filling into liver parenchyma - suggest a possible vascular etiology to liver insult. General surgery consultation. Triple phase CTA today. Blood culture pending. Zosyn. Reglan + PRN Zofran for breakthrough nausea. Moderate protein calorie malnutrition Debility b/l pleural effusions and +4 LE edema Albumin 2.2 today. PT/OT IV Albumin Normocytic anemia H/H stable Iron panel from admission earlier this month suggest etiology 2/2 hydration status and anemia of chronic dz. Diverticulosis NIDDM Depression DVT prophylaxis: lovenox and SCD GI prophylaxis: protonix and probiotic Lines and tubes: 1 x midline. DOREEN LI MD 01/16/21 1031: Subjective Date Seen by a Provider: Jan 15, 2021 Time Seen by a Provider: 09:00 Subjective/Events-last exam PT REPORTS THAT SHE IS FEELING A LITTLE BIT BETTER THIS MORNING - SITTING IN CHAIR AT BEDSIDE. SHE REPORTS THAT HER BOTTOM HURTS, HER STOMACH IS UPSET BUT SHE DOES FEEL LIKE HER APPETITE IS BETTER WITH THE REGLAN. Review of Systems General: No Night Sweats; Fatigue HEENT: No Head Aches, No Dysphasia Pulmonary: No Dyspnea, No Cough Cardiovascular: Edema (LOWER LEGS); No: Chest Pain, Palpitations Gastrointestinal: Nausea, Abdominal Pain, Diarrhea (INTERMITTENT - DEPENDING ON WHAT SHE EATS); No: Constipation Musculoskeletal: other (PAIN IN BUTTOCKS) Neurological: Weakness; No: Confusion Objective Exam General: Alert, Oriented X3, Cooperative, Mild Distress (DUE TO PAIN IN BUTTOCKS) Neck: Supple, No Thyromegaly Lungs: Clear to Auscultation, Normal Air Movement Heart: Regular Rate, No Murmurs Abdomen: Soft, No Masses, Other (tenderness in all four quadrants. ) Extremities: No Clubbing Skin: Other (PRESSURE SITE WITH BLISTER ON RIGHT GLUTEUS NEAR GLUTEAL CLEFT) Neuro: Normal Speech, Cranial Nerves 3-12 NL Psych/Mental Status: Mental Status NL Assessment/Plan Assessment/Plan Assess & Plan/Chief Complaint ACUTE INJURY HEPATITIS ELEVATED ALKALINE PHOSPHATASE LEUKOCYTOSIS HYPERBILIRUBINEMIA WEIGHT LOSS MALAISE ANOREXIA NAUSEA EMESIS WEAKNESS AND FALLING EPISODES DIET CONTROLLED DIABETES MELLITUS ANEMIA HYPOKALEMIA ACUTE INJURY HEPATITIS WITH PERSISTENTLY ELEVATED ALKALINE PHOSPHATASE, LEUKOCYTOSIS AND HYPERBILIRUBINEMIA - DISCUSSED CASE WITH DR. KIDO - IV ZOSYN, BLOOD CULTURES - CT SCAN OF ABD/PELVIS ORDERED - REPORT FOLLOWS: EXAMINATION: There has been development of mild bilateral pleural fluid. Note is made of internal biliary stenting. Gallbladder is surgically absent. Extensive heterogeneous density is again seen throughout the liver. The splenic, portal and hepatic veins are somewhat poorly visualized, may be due to small size as well as suboptimal timing. Heterogeneity of liver parenchyma may in part be related to perfusion abnormality. There is mild prominence of the pancreatic head although this is not significantly changed. The adrenal glands remain significantly enlarged similar to the previous study. No focal renal abnormality is identified. Gallbladder is absent. There is mild pelvic free fluid. No organized fluid collection is identified. IMPRESSION: Development of bilateral pleural fluid with continued pneumobilia with biliary stent in place. There is heterogeneous perfusion to the liver. This could in part be related to arterial and/or hepatic venous flow abnormality. Clinical correlation and possible MRI follow up would be of use. Consideration could be given to CTA of the abdomen with hepatic protocol to include arterial, portal venous and delayed imaging. - I DISCUSSED THE SCAN WITH DR. EUBANKS - HE RECOMMENDED MRI IMAGING OF THE LIVER VASCULATURE THERE IS CONCERN FOR SLUGGISH FLOW OF THE ARTERIES AND THE WORRY WOULD BE THAT THERE HAS BEEN INJURY TO THE VASCULATURE - HE NOTED THAT THE STUDY WAS SOMEWHAT POOR DUE TO HER SLOW VASCULAR FLOW BUT DID NOT SEE A CLOT PRESENT BASED ON THE IMAGING WITH FLOW THROUGH THE ARTERIES. HE FELT LIKE AN ABSCESS WAS LESS LIKELY, BUT THE POOR PERFUSION OF THE LIVER LED TO DECREASED IMAGING QUALITY. CT ANGIOGRAM TODAY WEIGHT LOSS DUE TO ANOREXIA AND NAUSEA/EMESIS - - DIETARY CONSULT - STARTED REGLAN AT 5MG IV TID - ADDED PRN ZOFRAN MALAISE, WEAKNESS AND FALLING EPISODES - CONSULT TO PHYSICAL AND OCCUPATIONAL THERAPY WELL INPT REHAB EVAL. DIET CONTROLLED DIABETES MELLITUS - AGAIN -CONSULT DIETARY, MONITOR FSBS ONCE TAKING IN MORE PO ANEMIA - REPEAT LABS HYPOKALEMIA - REPLENISH WITH IV POTASSIUM DVT PROPHYLAXIS WITH SCD'S AND LOVENOX GI PROPHYLAXIS WITH PROBIOTICS AND PROTONIX. Supervisory-Addendum Brief Verification & Attestation Participated in pt care: history, MDM, physical Personally performed: exam, history, MDM, supervision of care Care discussed with: Medical Student Procedures: n/a Results interpretation: Verified all documentation SEE MY DOCUMENTATION FOR FULL DETAILS RAMESH LAMBERT MED STUDENT Jan 15, 2021 08:43 DOREEN LI MD Jan 16, 2021 10:31
[2021-01-15] MEDS ORDERED: HOLD METFORMIN - RECEIVED CONTRAST 20 ML VIAL IV SCH (09:00)
[2021-01-15] MEDS ORDERED: CATHETER FLUSH 10 ML SYR IV PRN (09:00)
[2021-01-15] MEDS ORDERED: IOHEXOL 350 MG/ML 100 ML (OMNIPAQUE 350) VIAL IV ONE (09:00)
[2021-01-15] MEDS ORDERED: NS 100 ML (IVPB) BAG IV ONE (09:00)
[2021-01-15] MEDS: PANTOPRAZOLE 40 MG (PROTONIX) VIAL IV SCH (10:02)
[2021-01-15] MEDS: ENOXAPARIN 40 MG/0.4 ML (LOVENOX) SYR SC SCH ×2 (10:02→21:27)
[2021-01-15] MEDS: LACTOBACILLUS ACIDOPHILUS (PROBIOTIC) CAPSULE PO SCH ×3 (10:02→18:57)
--- NOTE | 2021-01-15 10:27 | Diagnostic Imaging Report ---
PROCEDURE: CT angiography of the abdomen with and without contrast. TECHNIQUE: Multiple contiguous axial images were obtained through the abdomen and pelvis after administration of intravenous contrast. 3D MIP reconstructions were made. Auto Exposure Controls were utilized during the CT exam to meet ALARA standards for radiation dose reduction. INDICATION: Abnormal liver enzymes. FINDINGS: The CT abdomen/pelvis exam performed on 01/14/2021 noted heterogeneous perfusion of the liver and raised a question of arterial or hepatic venous flow abnormality. MRI was recommended for further evaluation, but reportedly, the patient cannot undergo MRI due to her size. On this exam, there is again evidence of heterogeneity of the liver. In particular, the left lobe and the caudate lobe do seem to be of lower density than usual. The previous gallbladder ultrasound exam of 10/31/2020 did note a 2.9 x 3.0 x 2.7 cm area of hypoechogenicity in the left lobe of the liver. This finding could not be identified on the subsequent CT exam done the same day. On this study, however, the left lobe of the liver does have a heterogeneous appearance, and this does represent a change from the previous exam of 10/31/2020. The caudate lobe also appears to be of lower density than noted on the previous exam. The reason for these changes in density and heterogeneity is not certain but may be due to an inflammatory/infectious process. It would be less likely that this is related to neoplastic infiltration. The portal vein also appears small and does seem to have decreased in size since the previous CT abdomen/pelvis exam of 12/08/2020. The overall appearance of the abdomen has not changed significantly since the recent exam. There is still a small amount of fluid in both lung bases. IMPRESSION: This is a complex case. The area of diminished density in the caudate lobe and the left lobe could be secondary to an inflammatory/infectious process. The possibility that the portal vein and hepatic flow has been compromised should also be considered. I would recommend that a Doppler examination of the liver be performed for further study. These results were discussed with Dr. Divya Garcia. Dictated by: Dictated on workstation # [id number]
--- NOTE | 2021-01-15 11:56 | Physical Therapy Evaluation ---
PT Evaluation-General Medical Diagnosis Admission Date Jan 14, 2021 at 16:22 Medical Diagnosis: hepatic abscess/leukocytosis/dehydration/anemia Onset Date: Jan 14, 2021 Therapy Diagnosis Therapy Diagnosis: generalized weakness/debility Precautions Precautions/Isolations: Fall Prevention, Standard Precautions Weight Bear Status Right Lower Extremity: Right Weight Bearing/Tolerated Left Lower Extremity: Left Weight Bearing/Tolerated Referral Physician: Jose Reason for Referral: Evaluation/Treatment Medical History Pertinent Medical History: DM, HTN Current History s/p gallbladder removal October 2020 with increase in N&V, abdominal pain, weight loss Reviewed History: Yes Social History Home: Single Level Current Living Status: Other Family Prior Prior Level of Function SCALE: Activities may be completed with or without assistive devices. 0-Ivzvslcmal-fnmyluk completes the activity by him/herself with no assistance from a helper. 5-Set-up or Clean-up Assistance-helper sets up or cleans up; patient completes activity. [place] assists only prior to or following the activity. 4-Supervision or Touching Assistance-helper provides verbal cues and/or touching/steadying and/or contact guard assistance as patient completes activity. Assistance may be provided throughout the activity or intermittently. 3-Partial/Moderate Assistance-helper does LESS THAN HALF the effort. [place] lifts, holds or supports trunk or limbs, but provides less than half the effort. 2-Substantial/Maximal Assistance-helper does MORE THAN HALF the effort. [place] lifts or holds trunk or limbs and provides more than half the effort. 3-Axiszwgve-uycxea does ALL the effort. Patient does none of the effort to complete the activity. Or, the assistance of 2 or more helpers is required for the patient to complete the activity. If activity was not attempted, code reason: 7-Patient Refused. 9-Not Applicable-not attempted and the patient did not perform the activity before the current illness, exacerbation or injury. 10-Not Attempted due to Environmental Limitations-(lack of equipment, weather restraints, etc.). 88-Not Attempted due to Medical Conditions or Safety Concerns. Bed Mobility: 6 Transfers (B,C,W/C): 6 Gait: 6 Stairs: 6 Indoor Mobility (Ambulation): Independent Stairs: Independent Prior Devices Use: None PT Evaluation-Current Subjective Patient agrees to PT. She reports she is very weak and will require 2-3 people for bed mobility and transfers. Pain Numeric Pain Scale: 7 Location: Medial, Lower Location Body Site: Abdomen Pain Description: Pressure Objective Patient Orientation: Normal For Age Attachments: IV ROM/Strength ROM Lower Extremities bilateral LE WFL with noted edema Strength Lower Extremities 3/5 grossly bilateral LE Integumentary/Posture Bowel Incontinence: No Bladder Incontinence: No Posture WFL Neuromuscular (Tone, Coordination, Reflexes) grossly intact Sensory Vision: Wears Glasses Hearing: Functional Transfers Roll Left to Right (QC): 2 Sit to Lying (QC): 2 Lying to Sitting/Side of Bed(Q: 2 Sit to Stand (QC): 3 (with bed height elevated to assist) Gait Does the Patient Walk?: Yes Mode of Locomotion: Walk Anticipated Mode of Locomotion: Walk Walk 10 feet (QC): 4 (CGA for safety) Distance: 40' Gait Assistive Device: FWW Comments/Gait Description slow, steady gait sequence Balance Sitting Static: Normal Sitting Dynamic: Normal Standing Static: Fair Standing Dynamic: Fair Assessment/Needs 60 y.o. female, will benefit from skilled PT to address functional strength and mobility to improve current LOF to safely return to home at maximum LOF. Rehab Potential: Fair PT Shelter Goals Portable Power Tool Repairer Goals PT Shelter Goals Time Frame: Jan 31, 2021 Roll Left & Right (QC): 5 Sit to Lying (QC): 5 Lying-Sitting on Side/Bed(QC): 5 Sit to Stand (QC): 5 Chair/Dla-yf-Xbnlo Xfer(QC): 5 Toilet Transfer (QC): 5 Walk 10 feet (QC): 5 Walk 50ft with 2 Turns (QC): 5 Walk 150 ft (QC): 5 PT Plan Problem List Problem List: Activity Tolerance, Functional Strength, Balance, Gait, Transfer, Bed Mobility Treatment/Plan Treatment Plan: Continue Plan of Care Treatment Plan: Bed Mobility, Education, Functional Activity Altaf, Functional Strength, Gait, Safety, Therapeutic Exercise, Transfers Treatment Duration: Jan 31, 2021 Frequency: 6 times per week Estimated Hrs Per Day: .25 hour per day Patient and/or Family Agrees t: Yes Time/GCodes Time In: 1130 Time Out: 1142 Total Billed Treatment Time: 12 Total Billed Treatment 1 visit EVModC 12 min NAHID TORRES PT Jan 15, 2021 11:56
[2021-01-15] MEDS ORDERED: ONDA4TAB11 PO (12:14)
[2021-01-15] MEDS ORDERED: POLY17PO6 PO (12:14)
[2021-01-15] MEDS ORDERED: PANT40TA52 PO (12:14)
[2021-01-15] MEDS ORDERED: L. A1TAB10 PO (12:14)
[2021-01-15] MEDS ORDERED: SUCR1TAB PO (12:14)
[2021-01-15] MEDS ORDERED: HYDR-3817 PO (12:14)
[2021-01-15] MEDS ORDERED: SENN1TAB21 PO (12:14)
--- NOTE | 2021-01-15 14:25 | Occupational Therapy Eval ---
OT Evaluation-General/PLF Medical Diagnosis Admission Date Jan 14, 2021 at 16:22 Medical Diagnosis: hepatic abscess/leukocytosis/dehydration/anemia Onset Date: Jan 14, 2021 Therapy Diagnosis Therapy Diagnosis: decreased ADL status, weakness Precautions Precautions/Isolations: Fall Prevention, Standard Precautions Referral Physician: Jose Referral Reason: Evaluation/Treatment Medical History Pertinent Medical History: DM, HTN Current History s/p gallbladder removal October 2020 with increase in N&V, abdominal pain, weight loss Reviewed History: Yes Social History Home: Single Level Current Living Status: Other Family ADL-Prior Level of Function SCALE: Activities may be completed with or without assistive devices. 9-Hnyjcviqlq-bsloqpa completes the activity by him/herself with no assistance from a helper. 5-Set-up or Clean-up Assistance-helper sets up or cleans up; patient completes activity. [place] assists only prior to or following the activity. 4-Supervision or Touching Assistance-helper provides verbal cues and/or touching/steadying and/or contact guard assistance as patient completes activity. Assistance may be provided throughout the activity or intermittently. 3-Partial/Moderate Assistance-helper does LESS THAN HALF the effort. [place] lifts, holds or supports trunk or limbs, but provides less than half the effort. 2-Substantial/Maximal Assistance-helper does MORE THAN HALF the effort. [place] lifts or holds trunk or limbs and provides more than half the effort. 9-Nxirlgwqd-dovmwg does ALL the effort. Patient does none of the effort to complete the activity. Or, the assistance of 2 or more helpers is required for the patient to complete the activity. If activity was not attempted, code reason: 7-Patient Refused. 9-Not Applicable-not attempted and the patient did not perform the activity before the current illness, exacerbation or injury. 10-Not Attempted due to Environmental Limitations-(lack of equipment, weather restraints, etc.). 88-Not Attempted due to Medical Conditions or Safety Concerns. ADL PLOF Comments Pt reports prior to gallbladder surgery in October, she was independent with all ADLS and functional mobility, no AE/AD. Since her surgery, she has been getting weaker, she now has a bath chair that sits within her tub. Self Care: Independent Functional Cognition: Independent DME/Equipment: Bath Chair, Tub/Shower OT Current Status Subjective Pt seated EOB with Aide, agreeable to OT evaluation and tx. Pt does not verbalize pain rating. Mental Status/Objective Patient Orientation: Person, Place, Time, Situation Current Upper Extremity ROM WFL, BUE shoulder flexion to approx 140 degrees Upper Extremity Coordination WFL Upper Extremity Strength grossly 3+/5 ADL-Treatment Eating (QC): 6 (Pt able to take drink independently, does not have appetite to eat.) Shower/Bathe Self (QC): 1 (based on clincial judgment and pt report, assist x2 required at this time) Lower Body Dressing (QC): 1 (based on clincial judgment and pt report, assist x2 required at this time) On/Off Footwear (QC): 1 (total assist donning/doffing gripper socks.) Toileting Hygiene (QC): 1 (based on clincial judgment and pt report, assist x2 required at this time) Other Treatments Pt seated EOB, assist x2 to stand and pivot higher up in bed. Assist x2 transfer EOB to supine. OT assisted pt with positioning towards comfort. Pt provided history of events leading her to being in the hospital, OT provided therapeutic listening. OT educated pt on POC while she is admitted with focus on increasing independence with ADLs and functional mobility as well as increasing BUE strength and activity tolerance. Pt appears motivated with therapy, stating she hopes to be able to transfer to inpatient rehab unit. Staff members entered pt's room to perform ultrasound at this time. Post tx, pt in bed, call light in reach and all needs met. Education OT Patient Education: Correct positioning, Energy conservation, Exercise program, Modified ADL techniques, Progress toward Goal/Update tx plan, Purpose of tx/functional activities, Rehab process, Safety issues, Transfer techniques Teaching Recipient: Patient Teaching Methods: Discussion Response to Teaching: Verbalize Understanding OT Vinyl Hanger Goals Mcfp Goals Time Frame: Jan 30, 2021 Eating (QC): 6 Oral Hygiene (QC): 6 Toileting Hygiene (QC): 4 Shower/Bathe Self (QC): 4 Upper Body Dressing (QC): 5 Lower Body Dressing (QC): 4 On/Off Footwear (QC): 4 Additional Goals: 1-Demonstrate ADL Tasks, 2-Verbalize Understanding, 3- ImproveStrength/Altaf 1=Demonstrate adherence to instructed precautions during ADL tasks. 2=Patient will verbalize/demonstrate understanding of assistive devices/modif ications for ADL. 3=Patient will improve strength/tolerance for activity to enable patient to perform ADL's. OT Education/Plan Problem List/Assessment Assessment: Decreased Activ Tolerance, Decreased UE Strength, Dependent Transfers, Impaired Funct Balance, Impaired I ADL's, Impaired Self-Care Skills Discharge Recommendations Plan/Recommendations: Continue POC Therapy Discharge Recommendati: Post Acute OT Treatment Plan/Plan of Care Patient would benefit from OT for education, treatment and training to promote independence in ADL's, mobility, safety and/or upper extremity function for ADL's. Plan of Care: ADL Retraining, Functional Mobility, UE Funct Exercise/Act Treatment Duration: Jan 30, 2021 Frequency: 5 times per week Estimated Hrs Per Day: .25 hour per day Rehab Potential: Fair Time/GCodes Start Time: 13:58 Stop Time: 14:15 Total Time Billed (hr/min): 17 Billed Treatment Time 1, MELINA GUTIERREZ OT Jan 15, 2021 14:24
--- NOTE | 2021-01-15 15:21 | Diagnostic Imaging Report ---
PROCEDURE: US Hepatic (Liver). TECHNIQUE: Multiple real-time grayscale images were obtained over the right upper quadrant in various projections. INDICATION: Elevated liver enzymes The CT abdomen/pelvis exam performed prior to this study suggested that the portal vein was small. On this exam, spectral and color-flow imaging of the portal vein shows the vein is patent and there is normal directional flow within the vein. The hepatic veins are also seen to be patent. The previous gallbladder ultrasound exam of 10/31/2020 noted a 2.9 x 3.0 x 2.0 cm area of mixed echogenicity in the left lobe of the liver. That finding is not well-visualized on this study but does not appear to have changed significantly. There is no other parenchymal abnormality involving the liver identified. IMPRESSION: 1. The portal and hepatic veins are patent. 2. The area of altered echogenicity within the left lobe of the liver seen previously does not appear to have changed significantly. 3. These results were discussed with Dr. Divya Garcia. Dictated by: Dictated on workstation # [id number]
[2021-01-15] MEDS ORDERED: PROMETHAZINE INJ 25 MG/ML (PHENERGAN) AMP IVP PRN (17:15)
--- NOTE | 2021-01-15 17:37 | CONSULTATION REPORT ---
DATE OF SERVICE: 01/15/2021 ATTENDING PRIMARY CARE PHYSICIAN: Divya Garcia MD. HISTORY OF PRESENT ILLNESS: The patient is a 60-year-old female known to us. She was initially seen for a significant right upper abdominal quadrant pain for five days previous and this progressed to nausea and vomiting as well as diarrhea. An ultrasound was performed, which did show gallbladder wall thickening as well as pericholecystic fluid consistent with an acute cholecystitis. She was admitted, placed on IV antibiotics and on the following day. She underwent a laparoscopic cholecystectomy, was found to have a severely inflamed gallbladder as well as multiple gallstones. The patient did well after surgery. She was seen a week later because a Errol-Olsen drain was placed due to the amount of inflammation. The drainage at the time was serous and minimal and was removed. Approximately two months later, she presented with feelings of nausea and just feeling unwell. She had laboratory work done, which did show elevation of her liver function enzymes. This continued to elevate and she was referred to gastroenterology, where an ERCP was performed, which did show multiple retained stones in the common bile duct and underwent a papillotomy and a stent placed in both the common bile duct as well as the pancreatic duct. She was admitted at [facility] and placed on IV antibiotics for a few more days and then discharged home. She was readmitted on 12/30/2020 for weakness and persistent nausea and vomiting as well as constipation at that time. She was treated conservatively with medical management and IV fluids as well as stool softeners and laxatives and she was able to tolerate a diet and have bowel movements. She was again seen at her physician's office and continued to feel unwell. She reports she had reported continued nausea as well as dry heaving; however, no vomiting and loss of appetite. She states that since her last admission, she has been taking stool softeners as well as laxatives regularly and has had multiple loose stools on a regular basis. Laboratory work was again drawn, which did show a leukocytosis of 17,000 as well as a slight continued elevation of mostly the alkaline phosphatase. Total bilirubin was normal. On this admission, she underwent a CT scan with IV contrast, which did show the hypoechogenicity identified; however, this did not rule in or out a potential abscess and the CTA was then performed, which was not consistent with a hepatic abscess. She then underwent a Doppler ultrasonography, which did show hepatic and portal venous structures patent and intact. Of note, this hypoechogenicity was also identified before the surgery on the preoperative ultrasound. Since being admitted, she states that she has felt somewhat better after being on IV fluids and states that she is able to tolerate foods however, again does not have much of an appetite. PAST MEDICAL HISTORY: Right breast cancer, hypertension, history of acute cholecystitis and choledocholithiasis. PAST SURGICAL HISTORY: Right breast lumpectomy with radiation and orthopedic procedure. ALLERGIES: VALACYCLOVIR. MEDICATIONS: Atenolol 25 mg daily and hydrochlorothiazide 25 mg daily. SOCIAL HISTORY: Negative smoke and negative alcohol. FAMILY HISTORY: Noncontributory. PHYSICAL EXAMINATION: VITAL SIGNS: Temperature 37.0, blood pressure 101/67, pulse 87, respirations 18, and pulse ox 95% on room air. REVIEW OF SYSTEMS: A well-nourished female, currently appears weak; however, is awake and alert and does answer all questions appropriately. She does not report any shortness of breath or difficulty in breathing. No cough or sputum production. No chest pain, palpitations, and diaphoresis. Intermittent episodes of nausea and dry heaving as well as loss of appetite; however, no vomiting. She is having loose stools. No red blood per rectum and no dark tarry stools. She does state intermittent episodes of crampy right upper abdominal quadrant pain. She reports that on occasion she may feel some chills; however, no fevers. She has lost weight since the surgery. LABORATORY DATA: WBC 16.1, hemoglobin 10.0, hematocrit 32, platelets 236. Total bilirubin 1.1, AST 35, ALT 21, and alkaline phosphatase 413. ASSESSMENT AND PLAN: A 60-year-old female status post laparoscopic cholecystectomy for acute calculous cholecystitis and was later found to have choledocholithiasis and underwent ERCP and stent placement in the common bile duct as well as the pancreatic duct. Since that time, she has had issues with loss of appetite, nausea and vomiting and weakness. At this time, she does not appear to have a liver abscess. On the CT scan, she was found to have bilateral pleural effusions, likely causing atelectasis and the elevation of white count as well as possible fevers. For this, we will recommend continued ambulation, sitting upright as well as incentive spirometer. We are unsure what the etiology of the area of hypoechogenicity identified on radiologic imaging represents; however, was also present before the laparoscopic cholecystectomy. For now, we will continue with medical management with IV hydration as well as antinausea medications. If the traditional antinausea medications do not work, we will start Decadron 4 mg taken together with Zofran 4 mg in hopes of decreasing her nausea and also improving her appetite. If she continues to have these episodes of pain or continues to worsen, she may need reevaluation of her ductal system with another ERCP. Job ID: [id number] DocumentID: [id number] Dictated Date: 01/15/2021 17:19:56 Claim Clinician Date: 01/15/2021 17:36:58 Dictated By: SILVIA ANDRADE MD MTDD
[2021-01-15] MEDS: HYDROcodone/APAP 7.5 MG/325 MG (LORTAB, LORCET PLUS) TABLET PO PRN (19:31)
[2021-01-15] MEDS: LORazepam INJ 2 MG/ML (ATIVAN) VIAL IVP SCH (21:27)
[2021-01-15 21:35] LABS: HEPATITIS C ANTIBODY C Non-Reactive (Non-Reactive)
[2021-01-16 01:45] LABS: CLARITY,URINE SL CLOUDY; COLOR,URINE AMBER; GLUCOSE, URINE (UA) NEGATIVE (NEGATIVE); KETONES,URINE NEGATIVE (NEGATIVE); LEUKOCYTE ESTERASE ,URINE NEGATIVE (NEGATIVE); NITRITE,URINE NEGATIVE (NEGATIVE); PH,URINE 5.5 (5-9); PROTEIN,URINE 1+ (NEGATIVE)
[2021-01-16 02:34] LABS: BACTERIA,URINE LARGE /HPF; BILIRUBIN,URINE 1+ (NEGATIVE); SQUAMOUS EPITHELIAL CELL,UR 0-2 /HPF; WBC,URINE 0-2 /HPF
[2021-01-16 02:35] LABS: AMORPHOUS SEDIMENT,UR FEW AMOR URATES /LPF; GRANULAR CASTS,URINE 0-2 /LPF
[2021-01-16 03:35] VITALS: BP 124/78
[2021-01-16] MEDS: HYDROcodone/APAP 7.5 MG/325 MG (LORTAB, LORCET PLUS) TABLET PO PRN ×4 (04:39→23:21)
[2021-01-16] MEDS: METOCLOPRAMIDE INJ 10 MG/2 ML (REGLAN) IVP SCH ×3 (05:59→22:34)
[2021-01-16 06:11] LABS: HEMATOCRIT 32 % (35-52); MEAN CORPUSCULAR HEMOGLOBIN 28 pg (25-34); MEAN CORPUSCULAR HGB CONC 31 g/dL (32-36); MEAN CORPUSCULAR VOLUME 90 fL (80-99); MEAN PLATELET VOLUME 10.9 fL (9.0-12.2); PLATELET COUNT 270 10^3/uL (130-400); WHITE BLOOD COUNT 10.8 10^3/uL (4.3-11.0)
[2021-01-16 06:19] LABS: ALBUMIN 2.3 GM/DL (3.2-4.5)
[2021-01-16 06:20] LABS: POTASSIUM 3.6 MMOL/L (3.6-5.0)
[2021-01-16 06:21] LABS: CALCIUM 8.5 MG/DL (8.5-10.1)
[2021-01-16 06:22] LABS: TOTAL PROTEIN 6.7 GM/DL (6.4-8.2)
[2021-01-16 06:26] LABS: CREATININE SERUM 0.7 MG/DL (0.60-1.30)
[2021-01-16] MEDS: PIPERACILLIN/TAZO 4.5 GM/NS 100 ML IV SCH ×6 (07:00→22:34)
[2021-01-16 08:00] VITALS: BP 123/78
[2021-01-16] MEDS: NS IV 1000 ML 1,000 ML IV SCH ×2 (09:18→18:57)
[2021-01-16] MEDS: PANTOPRAZOLE 40 MG (PROTONIX) VIAL IV SCH (09:18)
[2021-01-16] MEDS: LACTOBACILLUS ACIDOPHILUS (PROBIOTIC) CAPSULE PO SCH ×3 (09:18→17:56)
[2021-01-16] MEDS: ENOXAPARIN 40 MG/0.4 ML (LOVENOX) SYR SC SCH ×2 (09:18→21:06)
--- NOTE | 2021-01-16 10:39 | Progress Note ---
Subjective Subjective Date Seen by Provider: Jan 16, 2021 Time Seen by Provider: 09:30 PT REPORTS THAT SHE IS FEELING FATIGUED THIS MORNING. SHE REPORTS THAT SHE DOES THINK THAT HER APPETITE IS IMPROVED FROM THE REGLAN WELL WITHOUT THE MIRALAX AND SENNA S. SHE STATES THAT HER NAUSEA IS A LITTLE IMPROVED WELL. SHE STILL HAS PAIN AND A SIGNIFICANT BURNING IN HER BUTTOCK AT SITE OF PRESSURE. PHYSICAL THERAPY STAFF FEELS LIKE SHE IS SELF LIMITING AND NOT HELPING HERSELF OUT MUCH SHE SHOULD BE ABLE TO, BRIANA FEELS LIKE SHE IS JUST TOO FATIGUED TO DO MUCH THERAPY IS PUSHING HER TO DO AT ONE TIME. Review of Systems General: No Night Sweats; Fatigue HEENT: No Head Aches, No Dysphasia Pulmonary: No Dyspnea, No Cough Cardiovascular: Edema (LOWER LEGS); No: Chest Pain, Palpitations Gastrointestinal: Nausea, Abdominal Pain, Diarrhea (INTERMITTENT - DEPENDING ON WHAT SHE EATS); No: Constipation Genitourinary: No Dysuria, No Incontinence Musculoskeletal: other (PAIN IN BUTTOCKS) Neurological: Weakness; No: Confusion All Other Systems Reviewed All Other Systems Reviewed: Yes Objective Exam Vital Signs Vital Signs Date Time Temp Pulse Resp B/P (MAP) Pulse Ox O2 Delivery O2 Flow Rate FiO2 01/16/21 08:00 35.8 89 20 123/78 (93) 96 Room Air 01/16/21 07:59 Room Air 01/16/21 03:35 36.2 81 18 124/78 (93) 94 Room Air 01/15/21 23:30 36.1 99 20 121/76 (91) 94 Room Air 01/15/21 20:35 Room Air 01/15/21 20:00 36.5 107 20 117/75 (89) 97 Room Air 01/15/21 16:00 36.9 97 22 108/74 (85) 98 Room Air 01/15/21 11:15 37.0 87 18 101/67 (78) 95 Room Air I & O 01/16/21 07:00 Intake Total 2705 ml Output Total 750 ml Balance 1955 ml General Appearance: No Apparent Distress, WD/WN Eyes: Bilateral Eye Normal Inspection, Bilateral Eye PERRL, Bilateral Eye EOMI HEENT: PERRL/EOMI, Pharynx Normal Neck: Full Range of Motion, Normal Inspection, Non Tender, Supple Respiratory: Chest Non Tender, Lungs Clear, No Accessory Muscle Use, No Respiratory Distress, Decreased Breath Sounds (IN BASES) Cardiovascular: Regular Rate, Rhythm Gastrointestinal: Soft, Abnormal Bowel Sounds, Tenderness (ruq/EPIGASTRIUM) Rectal: Deferred Extremity: Pedal Edema (2+BILATERAL LE AT ANKLES) Neurologic/Psychiatric: Alert, Oriented x3, No 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, 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, Other (TEARFUL) Skin: Normal Color, Warm/Dry Lymphatic: No Adenopathy Results Lab Laboratory Tests 01/16/21 00:51: Urine Color AMBERH, Urine Clarity SL CLOUDY, Urine pH 5.5, Urine Specific [place] 1.025H, Urine Protein 1+H, Urine Glucose (UA) NEGATIVE, Urine Ketones NEGATIVE, Urine Nitrite NEGATIVE, Urine Bilirubin 1+H, Urine Urobilinogen 1.0, Urine Leukocyte Esterase NEGATIVE, Urine RBC (Auto) TRACE-I, Urine RBC NONE, Urine WBC 0-2, Urine Squamous Epithelial Cells 0-2, Urine Crystals PRESENTH, Urine Amorphous Sediment FEW CINDY URATESH, Urine Bacteria LARGEH, Urine Casts PRESENT, Urine Granular Casts 0-2H, Urine Mucus NEGATIVE, Urine Culture Indicated YES 01/16/21 05:40: White Blood Count 10.8, Red Blood Count 3.55L, Hemoglobin 10.0L, Hematocrit 32L, Mean Corpuscular Volume 90, Mean Corpuscular Hemoglobin 28, Mean Corpuscular Hemoglobin Concent 31L, Red Cell Distribution Width 16.0H, Platelet Count 270, Mean Platelet Volume 10.9, Sodium Level 135, Potassium Level 3.6, Chloride Level 96L, Carbon Dioxide Level 27, Anion Gap 12, Blood Urea Nitrogen 12, Creatinine 0.70, Estimat Glomerular Filtration Rate 85, BUN/Creatinine Ratio 17, Glucose Level 136H, Calcium Level 8.5, Corrected Calcium 9.9, Total Bilirubin 1.0, Aspartate Amino Transf (AST/SGOT) 34, Alanine Aminotransferase (ALT/SGPT) 15, Alkaline Phosphatase 374H, Total Protein 6.7, Albumin 2.3L, Amylase Level 16L, Lipase 15 Microbiology 01/14/21 Blood Culture - Preliminary, Resulted Escherichia coli Assessment/Plan Assessment/Plan Admission Dx ACUTE INJURY HEPATITIS ELEVATED ALKALINE PHOSPHATASE LEUKOCYTOSIS HYPERBILIRUBINEMIA WEIGHT LOSS MALAISE ANOREXIA NAUSEA EMESIS WEAKNESS AND FALLING EPISODES DIET CONTROLLED DIABETES MELLITUS ANEMIA HYPOKALEMIA Assessment and Plan ACUTE INJURY HEPATITIS ELEVATED ALKALINE PHOSPHATASE LEUKOCYTOSIS HYPERBILIRUBINEMIA WEIGHT LOSS MALAISE ANOREXIA NAUSEA EMESIS WEAKNESS AND FALLING EPISODES DIET CONTROLLED DIABETES MELLITUS ANEMIA HYPOKALEMIA ACUTE INJURY HEPATITIS WITH PERSISTENTLY ELEVATED ALKALINE PHOSPHATASE, LEUKOCYTOSIS AND HYPERBILIRUBINEMIA - DISCUSSED CASE WITH DR. LUPE SIMON, BLOOD CULTURES - CT SCAN OF ABD/PELVIS ORDERED - REPORT FOLLOWS: EXAMINATION: There has been development of mild bilateral pleural fluid. Note is made of internal biliary stenting. Gallbladder is surgically absent. Extensive heterogeneous density is again seen throughout the liver. The splenic, portal and hepatic veins are somewhat poorly visualized, may be due to small size as well as suboptimal timing. Heterogeneity of liver parenchyma may in part be related to perfusion abnormality. There is mild prominence of the pancreatic he ad although this is not significantly changed. The adrenal glands remain significantly enlarged similar to the previous study. No focal renal abnormality is identified. Gallbladder is absent. There is mild pelvic free fluid. No organized fluid collection is identified. IMPRESSION: Development of bilateral pleural fluid with continued pneumobilia with biliary stent in place. There is heterogeneous perfusion to the liver. This could in part be related to arterial and/or hepatic venous flow abnormality. Clinical correlation and possible MRI follow up would be of use. Consideration could be given to CTA of the abdomen with hepatic protocol to include arterial, portal venous and delayed imaging. - I DISCUSSED THE SCAN WITH DR. EUBANKS - HE RECOMMENDED MRI IMAGING OF THE LIVER VASCULATURE THERE IS CONCERN FOR SLUGGISH FLOW OF THE ARTERIES AND THE WORRY WOULD BE THAT THERE HAS BEEN INJURY TO THE VASCULATURE - HE NOTED THAT THE STUDY WAS SOMEWHAT POOR DUE TO HER SLOW VASCULAR FLOW BUT DID NOT SEE A CLOT PRESENT BASED ON THE IMAGING WITH FLOW THROUGH THE ARTERIES. HE FELT LIKE AN ABSCESS WAS LESS LIKELY, BUT THE POOR PERFUSION OF THE LIVER LED TO DECREASED IMAGING QUALITY. CT ANGIOGRAM FROM YESTERDAY FOLLOWS:IMPRESSION: This is a complex case. The area of diminished density in the caudate lobe and the left lobe could be secondary to a separate pathologic process. The possibility that the portal vein and hepatic flow has been compromised should also be considered. I would recommend that a Doppler examination of the liver be performed for further study. LIVER DOPPLER FROM YESTERDAY FOLLOWS: IMPRESSION: 1. The portal and h epatic veins are patent. 2. The area of altered echogenicity within the left lobe of the liver seen previously does not appear to have changed significantly. 3. These results will be discussed with Dr. Doreen Garcia. - CASE DISCUSSED WITH DR. SANTIAGO - HE IS WONDERING ABOUT [facility] -- HE REQUESTED IMAGING TO BE CLOUDED SO HE COULD REVIEW HER CASE, MAKE RECOMMENDATIONS AND HE HAS INDICATED HE WILL CALL NEXT WEEK WHEN BRIANA IS ON INPT REHAB FOR HER TO BE SEEN IN HIS OFFICE. HE DID NOT MAKE ANY FURTHER RECOMMENDATIONS UNTIL HE HAS REVIEWED HER PERTINENT IMAGING STUDIES. - APPRECIATE HIS INPUT WEIGHT LOSS DUE TO ANOREXIA AND NAUSEA/EMESIS - - DIETARY CONSULT - STARTED REGLAN AT 5MG IV TID - ADDED PRN ZOFRAN - WAIT ON IV ALBUMIN AT THIS TIME. MALAISE, WEAKNESS AND FALLING EPISODES - CONSULT TO PHYSICAL AND OCCUPATIONAL THERAPY WELL INPT REHAB EVAL. DIET CONTROLLED DIABETES MELLITUS - AGAIN -CONSULT DIETARY, MONITOR FSBS ONCE TAKING IN MORE PO ANEMIA - REPEAT LABS HYPOKALEMIA - REPLENISH WITH IV POTASSIUM DVT PROPHYLAXIS WITH SCD'S AND LOVENOX GI PROPHYLAXIS WITH PROBIOTICS AND PROTONIX. Admission Dx ACUTE INJURY HEPATITIS ELEVATED ALKALINE PHOSPHATASE LEUKOCYTOSIS HYPERBILIRUBINEMIA WEIGHT LOSS MALAISE ANOREXIA NAUSEA EMESIS WEAKNESS AND FALLING EPISODES DIET CONTROLLED DIABETES MELLITUS ANEMIA HYPOKALEMIA Clinical Quality Measures Admission Status Admission Dx ACUTE INJURY HEPATITIS ELEVATED ALKALINE PHOSPHATASE LEUKOCYTOSIS HYPERBILIRUBINEMIA WEIGHT LOSS MALAISE ANOREXIA NAUSEA EMESIS WEAKNESS AND FALLING EPISODES DIET CONTROLLED DIABETES MELLITUS ANEMIA HYPOKALEMIA DOREEN GARCIA MD Jan 16, 2021 10:39
--- NOTE | 2021-01-16 11:11 | Physical Therapy Daily Note ---
PT Daily Note-Current Subjective Patient agrees to PT. Patient voices she feels better knowing what is wrong with her and that "there's hopefully an end to feeling bad soon." Mental Status Patient Orientation: Normal For Age Attachments: IV Transfers SCALE: Activities may be completed with or without assistive devices. 8-Ouwijplooc-ucrgavq completes the activity by him/herself with no assistance from a helper. 5-Set-up or Clean-up Assistance-helper sets up or cleans up; patient completes activity. [place] assists only prior to or following the activity. 4-Supervision or Touching Assistance-helper provides verbal cues and/or touchin g/steadying and/or contact guard assistance as patient completes activity. Assistance may be provided throughout the activity or intermittently. 3-Partial/Moderate Assistance-helper does LESS THAN HALF the effort. [place] lifts, holds or supports trunk or limbs, but provides less than half the effort. 2-Substantial/Maximal Assistance-helper does MORE THAN HALF the effort. [place] lifts or holds trunk or limbs and provides more than half the effort. 1-Ypzdqvjgm-nooecz does ALL the effort. Patient does none of the effort to complete the activity. Or, the assistance of 2 or more helpers is required for the patient to complete the activity. If activity was not attempted, code reason: 7-Patient Refused. 9-Not Applicable-not attempted and the patient did not perform the activity before the current illness, exacerbation or injury. 10-Not Attempted due to Environmental Limitations-(lack of equipment, weather restraints, etc.). 88-Not Attempted due to Medical Conditions or Safety Concerns. Lying to Sitting/Side of Bed(Q: 3 Sit to Stand (QC): 3 Chair/Mmc-tw-Bslso Xfer(QC): 3 Weight Bearing Right Lower Extremity: Right Weight Bearing/Tolerated Left Lower Extremity: Left Weight Bearing/Tolerated Gait Training Does the Patient Walk?: Yes Distance: 50' Walk 10 feet (QC): 4 Walk 50 ft with 2 Turns(QC): 4 Walk 150 ft (QC): 88 Gait Assistive Device: FWW slow, steady gait sequence Exercises Supine Ex: Ankle pumps, Quad Set, Heel Slides, Straight leg raise (AAROM bilaterally) Supine Reps: 12 Seated Therapy Exercises: Ankle pumps, Long arc quads Seated Reps: 12 Assessment Patient tolerated treatment well. PT placed cushions in recliner to relieve gluteal pressure. Increase activity as tolerated by patient. PT Music Intern Goals Music Intern Goals PT Fdc Goals Time Frame: Jan 31, 2021 Roll Left & Right (QC): 5 Sit to Lying (QC): 5 Lying-Sitting on Side/Bed(QC): 5 Sit to Stand (QC): 5 Chair/Jsm-kx-Auwyc Xfer(QC): 5 Toilet Transfer (QC): 5 Walk 10 feet (QC): 5 Walk 50ft with 2 Turns (QC): 5 Walk 150 ft (QC): 5 PT Plan Treatment/Plan Treatment Plan: Continue Plan of Care Treatment Plan: Bed Mobility, Education, Functional Activity Altaf, Functional Strength, Gait, Safety, Therapeutic Exercise, Transfers Treatment Duration: Jan 31, 2021 Frequency: 6 times per week Estimated Hrs Per Day: .25 hour per day Patient and/or Family Agrees t: Yes Time/GCodes Time In: 1022 Time Out: 1045 Total Billed Treatment Time: 23 Total Billed Treatment 1 visit EX 13 min GT 10 min NAHID TORRES PT Jan 16, 2021 11:11
[2021-01-16 12:00] VITALS: BP 135/77
--- NOTE | 2021-01-16 12:37 | Progress Note ---
Subjective Date Seen by a Provider: Jan 16, 2021 Time Seen by a Provider: 12:00 Subjective/Events-last exam doing a little bit better today. + e. coli on blood culture. appetite slightly better. still physically very weak Focused Exam Lactate Level 01/14/21 17:34: Lactic Acid Level 1.60 Objective Exam Vital Signs Date Time Temp Pulse Resp B/P (MAP) Pulse Ox O2 Delivery O2 Flow Rate FiO2 01/16/21 08:00 35.8 89 20 123/78 (93) 96 Room Air 01/16/21 07:59 Room Air 01/16/21 03:35 36.2 81 18 124/78 (93) 94 Room Air 01/15/21 23:30 36.1 99 20 121/76 (91) 94 Room Air 01/15/21 20:35 Room Air 01/15/21 20:00 36.5 107 20 117/75 (89) 97 Room Air 01/15/21 16:00 36.9 97 22 108/74 (85) 98 Room Air I & O 01/16/21 07:00 Intake Total 2705 ml Output Total 750 ml Balance 1955 ml Capillary Refill : General Appearance: No Apparent Distress HEENT: PERRL/EOMI Neck: Full Range of Motion Respiratory: Chest Non Tender, Decreased Breath Sounds Cardiovascular: Regular Rate, Rhythm Gastrointestinal: normal bowel sounds, soft, tenderness Extremity: Normal Capillary Refill Neurologic/Psychiatric: Alert, Oriented x3 Skin: Normal Color Lymphatic: No Adenopathy Results Lab Laboratory Tests 01/16/21 00:51: Urine Color AMBERH, Urine Clarity SL CLOUDY, Urine pH 5.5, Urine Specific [place] 1.025H, Urine Protein 1+H, Urine Glucose (UA) NEGATIVE, Urine Ketones NEGATIVE, Urine Nitrite NEGATIVE, Urine Bilirubin 1+H, Urine Urobilinogen 1.0, Urine Leukocyte Esterase NEGATIVE, Urine RBC (Auto) TRACE-I, Urine RBC NONE, Urine WBC 0-2, Urine Squamous Epithelial Cells 0-2, Urine Crystals PRESENTH, U rine Amorphous Sediment FEW CINDY URATESH, Urine Bacteria LARGEH, Urine Casts PRESENT, Urine Granular Casts 0-2H, Urine Mucus NEGATIVE, Urine Culture Indicated YES 01/16/21 05:40: White Blood Count 10.8, Red Blood Count 3.55L, Hemoglobin 10.0L, Hematocrit 32L, Mean Corpuscular Volume 90, Mean Corpuscular Hemoglobin 28, Mean Corpuscular Hemoglobin Concent 31L, Red Cell Distribution Width 16.0H, Platelet Count 270, Mean Platelet Volume 10.9, Sodium Level 135, Potassium Level 3.6, Chloride Level 96L, Carbon Dioxide Level 27, Anion Gap 12, Blood Urea Nitrogen 12, Creatinine 0.70, Estimat Glomerular Filtration Rate 85, BUN/Creatinine Ratio 17, Glucose Level 136H, Calcium Level 8.5, Corrected Calcium 9.9, Total Bilirubin 1.0, Aspartate Amino Transf (AST/SGOT) 34, Alanine Aminotransferase (ALT/SGPT) 15, Alkaline Phosphatase 374H, Total Protein 6.7, Albumin 2.3L, Amylase Level 16L, Lipase 15 Microbiology 01/14/21 Blood Culture - Preliminary, Resulted Escherichia coli Assessment/Plan Assessment/Plan Assess & Plan/Chief Complaint sepsis s/p lap samy and ERCP with stent placement and bilateral atelectasis/pl effusion. cont iv abx. diet as tolerated. ARU at some point. GI for further evaluation. SILVIA ANDRADE MD Jan 16, 2021 12:37
--- NOTE | 2021-01-16 13:42 | Occupational Ther Daily Note ---
OT Current Status-Daily Note Subjective Pt was lying supine upon OT arrival. Pt stated she was ready to do therapy in bed. Mental Status/Objective Patient Orientation: Person, Place, Time, Situation Attachments: IV ADL-Treatment Therapy Code Descriptions/Definitions Functional Bandera Measure: 0=Not Assessed/NA 4=Minimal Assistance 1=Total Assistance 5=Supervision or Setup 2=Maximal Assistance 6=Modified Bandera 3=Moderate Assistance 7=Complete IndependenceSCALE: Activities may be completed with or without assistive devices. 8-Vydblvleuv-ffqjnoe completes the activity by him/herself with no assistance from a helper. 5-Set-up or Clean-up Assistance-helper sets up or cleans up; patient completes activity. [place] assists only prior to or following the activity. 4-Supervision or Touching Assistance-helper provides verbal cues and/or touching/steadying and/or contact guard assistance as patient completes activity. Assistance may be provided throughout the activity or intermittently. 3-Partial/Moderate Assistance-helper does LESS THAN HALF the effort. [place] lifts, holds or supports trunk or limbs, but provides less than half the effort. 2-Substantial/Maximal Assistance-helper does MORE THAN HALF the effort. [place] lifts or holds trunk or limbs and provides more than half the effort. 4-Kfwjufusi-yuhuly does ALL the effort. Patient does none of the effort to complete the activity. Or, the assistance of 2 or more helpers is required for the patient to complete the activity. If activity was not attempted, code reason: 7-Patient Refused. 9-Not Applicable-not attempted and the patient did not perform the activity before the current illness, exacerbation or injury. 10-Not Attempted due to Environmental Limitations-(lack of equipment, weather restraints, etc.). 88-Not Attempted due to Medical Conditions or Safety Concerns. Other Treatment Pt participated in T-Band medium resistance exercises while seated in bed, w/ BUE requiring skilled demonstration. Pt performed x5 reps at SBA in the following exercises: shd abd, shd ext rotation, shd horizontal abd, elbow flexion, and elbow extension. Pt completed exercises at slow pace with rest breaks after each exercise. Post tx, pt lying supine in bed, call light in reach, all needs met. Education OT Patient Education: Correct positioning, Energy conservation, Exercise program, Home exercise program, Progress toward Goal/Update tx plan, Purpose of tx/functional activities, Safety issues Teaching Recipient: Patient Teaching Methods: Demonstration Response to Teaching: Return Demonstration OT [employer] Installation Mechanic Goals Halfway Goals Time Frame: Jan 30, 2021 Eating (QC): 6 Oral Hygiene (QC): 6 Toileting Hygiene (QC): 4 Shower/Bathe Self (QC): 4 Upper Body Dressing (QC): 5 Lower Body Dressing (QC): 4 On/Off Footwear (QC): 4 Additional Goals: 1-Demonstrate ADL Tasks, 2-Verbalize Understanding, 3- ImproveStrength/Altaf 1=Demonstrate adherence to instructed precautions during ADL tasks. 2=Patient will verbalize/demonstrate understanding of assistive devices/modifications for ADL. 3=Patient will improve strength/tolerance for activity to enable patient to perform ADL's. OT Education/Plan Problem List/Assessment Assessment: Decreased Activ Tolerance, Decreased Safety Aware, Decreased UE Strength, Impaired Coordination, Impaired Funct Balance, Impaired Self-Care Skills Discharge Recommendations Plan/Recommendations: Continue POC Treatment Plan/Plan of Care Patient would benefit from OT for education, treatment and training to promote independence in ADL's, mobility, safety and/or upper extremity function for ADL's. Plan of Care: ADL Retraining, Functional Mobility, UE Funct Exercise/Act Treatment Duration: Jan 30, 2021 Frequency: 5 times per week Estimated Hrs Per Day: .25 hour per day Rehab Potential: Fair Time/GCodes Start Time: 13:05 Stop Time: 13:30 Total Time Billed (hr/min): 25 Billed Treatment Time 1 visit, EX 2 MELINA TREJO OT Jan 16, 2021 13:42
[2021-01-16 15:34] VITALS: BP 134/60
[2021-01-16 19:00] VITALS: BP 136/65
[2021-01-16] MEDS: LORazepam INJ 2 MG/ML (ATIVAN) VIAL IVP SCH (21:07)
[2021-01-16] MEDS: fentaNYL INJ 100 MCG/2 ML AMP IVP PRN (21:08)
[2021-01-16] MEDS: ONDANSETRON 4 MG/2 ML (SDV) Z0FRAN IVP PRN (21:22)
[2021-01-16 23:52] VITALS: BP 131/76
[2021-01-17] MEDS: fentaNYL INJ 100 MCG/2 ML AMP IVP PRN ×5 (02:13→18:09)
[2021-01-17 04:00] VITALS: BP 115/72
[2021-01-17] MEDS: PIPERACILLIN/TAZO 4.5 GM/NS 100 ML IV SCH ×2 (05:43)
[2021-01-17] MEDS: METOCLOPRAMIDE INJ 10 MG/2 ML (REGLAN) IVP SCH ×3 (05:44→21:57)
[2021-01-17 05:55] LABS: HEMATOCRIT 31 % (35-52); HEMOGLOBIN 9.5 g/dL (11.5-16.0); MEAN CORPUSCULAR HEMOGLOBIN 28 pg (25-34); MEAN CORPUSCULAR HGB CONC 31 g/dL (32-36); MEAN CORPUSCULAR VOLUME 91 fL (80-99); PLATELET COUNT 267 10^3/uL (130-400); WHITE BLOOD COUNT 10.9 10^3/uL (4.3-11.0)
[2021-01-17 06:10] LABS: ALBUMIN 2.2 GM/DL (3.2-4.5)
[2021-01-17 06:11] LABS: POTASSIUM 3.4 MMOL/L (3.6-5.0)
[2021-01-17 06:12] LABS: CALCIUM 8.1 MG/DL (8.5-10.1)
[2021-01-17 06:13] LABS: TOTAL PROTEIN 6.3 GM/DL (6.4-8.2)
[2021-01-17 06:15] LABS: BILIRUBIN,TOTAL 0.9 MG/DL (0.1-1.0)
[2021-01-17 06:17] LABS: CREATININE SERUM 0.66 MG/DL (0.60-1.30)
[2021-01-17 07:09] VITALS: BP 136/65
[2021-01-17] MEDS: ENOXAPARIN 40 MG/0.4 ML (LOVENOX) SYR SC SCH ×2 (08:04→21:17)
[2021-01-17] MEDS: NS IV 1000 ML 1,000 ML IV SCH ×3 (08:04→21:21)
[2021-01-17] MEDS: DOCUSATE SODIUM 100 MG (COLACE) CAP PO SCH (08:04)
[2021-01-17] MEDS: PANTOPRAZOLE 40 MG (PROTONIX) VIAL IV SCH (08:05)
[2021-01-17] MEDS: LACTOBACILLUS ACIDOPHILUS (PROBIOTIC) CAPSULE PO SCH ×3 (08:17→17:37)
[2021-01-17] MEDS: HYDROcodone/APAP 7.5 MG/325 MG (LORTAB, LORCET PLUS) TABLET PO PRN ×3 (09:55→21:16)
--- NOTE | 2021-01-17 10:37 | Physical Therapy Progress Note ---
Therapy Progress Note Pt in bed, visitor in room. Pt declined PT this date. Reports she was up to chair x 3 hours and just returned to bed. Visitor reports she also has walked to and from the BR with assist. Pt agreeable to up to chair with nursing for meals later this date. FELIX STEWART DPT Jan 17, 2021 10:37
--- NOTE | 2021-01-17 11:30 | Progress Note ---
Subjective Date Seen by a Provider: Jan 17, 2021 Time Seen by a Provider: 10:00 Subjective/Events-last exam doing ok. appetite slowly improving. still very weak. sister states severe family hx metal allergy. Focused Exam Lactate Level 01/14/21 17:34: Lactic Acid Level 1.60 Objective Exam Vital Signs Date Time Temp Pulse Resp B/P (MAP) Pulse Ox O2 Delivery O2 Flow Rate FiO2 01/17/21 08:00 Room Air 01/17/21 07:09 36.1 107 20 136/65 (88) 93 Room Air 01/17/21 04:00 37.2 93 18 115/72 (86) 94 Room Air 01/16/21 23:52 36.9 90 18 131/76 (94) 96 Room Air 01/16/21 21:10 Room Air 01/16/21 19:00 36.2 88 18 136/65 (88) 97 Room Air 01/16/21 15:34 35.7 102 18 134/60 (84) 97 Room Air 01/16/21 14:03 01/16/21 12:00 36.2 81 20 135/77 (96) 97 Room Air I & O 01/17/21 07:00 Intake Total 840 ml Output Total 900 ml Balance -60 ml Capillary Refill : General Appearance: No Apparent Distress HEENT: PERRL/EOMI Neck: Full Range of Motion Respiratory: Chest Non Tender, Decreased Breath Sounds Cardiovascular: Regular Rate, Rhythm Gastrointestinal: normal bowel sounds, tenderness Extremity: Normal Capillary Refill Neurologic/Psychiatric: Alert, Oriented x3 Skin: Normal Color Lymphatic: No Adenopathy Results Lab Laboratory Tests 01/17/21 05:35: White Blood Count 10.9, Red Blood Count 3.39L, Hemoglobin 9.5L, Hematocrit 31L, Mean Corpuscular Volume 91, Mean Corpuscular Hemoglobin 28, Mean Corpuscular Hemoglobin Concent 31L, Red Cell Distribution Width 16.0H, Platelet Count 267, Mean Platelet Volume 11.0, Sodium Level 137, Potassium Level 3.4L, Chloride Level 100, Carbon Dioxide Level 27, Anion Gap 10, Blood Urea Nitrogen 12, Creatinine 0.66, Estimat Glomerular Filtration Rate 91, BUN/Creatinine Ratio 18, Glucose Level 145H, Calcium Level 8.1L, Corrected Calcium 9.5, Total Bilirubin 0.9, Aspartate Amino Transf (AST/SGOT) 21, Alanine Aminotransferase (ALT/SGPT) 12, Alkaline Phosphatase 318H, Total Protein 6.3L, Albumin 2.2L Microbiology 01/16/21 Urine Culture - Preliminary, Resulted YEAST 01/14/21 Blood Culture - Preliminary, Resulted No growth Assessment/Plan Assessment/Plan Assess & Plan/Chief Complaint sepsis s/p lap samy and ERCP with stent placement and bilateral atelectasis/pl effusion. cont iv abx. diet as tolerated. ARU at some point. GI for further evaluation. SILVIA ANDRADE MD Jan 17, 2021 11:30
[2021-01-17 11:55] VITALS: BP 130/58
[2021-01-17] MEDS ORDERED: FLUCONAZOLE 200 MG/100 ML 50 ML, SYRINGE-IVPB 1 SYRINGE IV ONE ×2 (13:30)
[2021-01-17] MEDS ORDERED: KCL 20 MEQ TAB (K-DUR) PO ONE (13:30)
[2021-01-17] MEDS ORDERED: FUROSEMIDE 40 MG/4 ML INJ (LASIX) IVP ONE (13:30)
--- NOTE | 2021-01-17 13:30 | Progress Note ---
Subjective Date Seen by a Provider: Jan 17, 2021 Time Seen by a Provider: 13:26 Subjective/Events-last exam Fwup sepsis, acute hepatitis, HTN, edema, dyspepsia and anorexia, diet controlled diabetes mellitus, weakness/debility with recurrent falls. Appetite still poor. Worsening edema especially in legs. Focused Exam Lactate Level 01/14/21 17:34: Lactic Acid Level 1.60 Objective Exam Vital Signs Date Time Temp Pulse Resp B/P (MAP) Pulse Ox O2 Delivery O2 Flow Rate FiO2 01/17/21 11:55 36.1 107 20 130/58 (82) 93 Room Air 01/17/21 08:00 Room Air 01/17/21 07:09 36.1 107 20 136/65 (88) 93 Room Air 01/17/21 04:00 37.2 93 18 115/72 (86) 94 Room Air 01/16/21 23:52 36.9 90 18 131/76 (94) 96 Room Air 01/16/21 21:10 Room Air 01/16/21 19:00 36.2 88 18 136/65 (88) 97 Room Air 01/16/21 15:34 35.7 102 18 134/60 (84) 97 Room Air 01/16/21 14:03 I & O 01/17/21 07:00 Intake Total 840 ml Output Total 900 ml Balance -60 ml Capillary Refill : General Appearance: Mild Distress Respiratory: Lungs Clear Cardiovascular: Regular Rate, Rhythm, Gallop/S4 Gastrointestinal: normal bowel sounds, non tender, soft Extremity: Non Tender, No Calf Tenderness, Pedal Edema (2 plus) Neurologic/Psychiatric: Alert, Oriented x3 Results Lab Laboratory Tests 01/17/21 05:35: White Blood Count 10.9, Red Blood Count 3.39L, Hemoglobin 9.5L, Hematocrit 31L, Mean Corpuscular Volume 91, Mean Corpuscular Hemoglobin 28, Mean Corpuscular Hemoglobin Concent 31L, Red Cell Distribution Width 16.0H, Platelet Count 267, Mean Platelet Volume 11.0, Sodium Level 137, Potassium Level 3.4L, Chloride Level 100, Carbon Dioxide Level 27, Anion Gap 10, Blood Urea Nitrogen 12, Creatinine 0.66, Estimat Glomerular Filtration Rate 91, BUN/Creatinine Ratio 18, Glucose Level 145H, Calcium Level 8.1L, Corrected Calcium 9.5, Total Bilirubin 0.9, Aspartate Amino Transf (AST/SGOT) 21, Alanine Aminotransferase (ALT/SGPT) 12, Alkaline Phosphatase 318H, Total Protein 6.3L, Albumin 2.2L Microbiology 01/16/21 Urine Culture - Preliminary, Resulted YEAST 01/14/21 Blood Culture - Preliminary, Resulted No growth Assessment/Plan Assessment/Plan Assess & Plan/Chief Complaint 1. Sepsis with E. Coli--resistant to zosyn so will start meropenem 2. UTI with yeast--start diflucan 3. Acute Hepatitis--liver enzymes coming down 4. Liver Lesion/Mass--GI planning on seeing patient once DCed from hospital 5. Hypertension--stable 6. Diet Controlled DMII--on accuchecks with SSI 7. Dyspepsia--on protonix and reglan started 8. Weakness/Debility/Recurrent Falls--PT/OT started and looking at rehab when bed available 9. Edema/Third Spacing--will give lasix IV today and monitor response--will place gandhi catheter today due to high fall risk and plan on DC tomorrow LISSETTE WATERS DO Jan 17, 2021 13:30
[2021-01-17] MEDS: MEROPENEM 1,000 MG in WATER (STERILE) FOR INJECTION 20 ML IV SCH ×2 (14:38→21:56)
[2021-01-17 15:49] VITALS: BP 137/65
[2021-01-17 19:43] VITALS: BP 117/58
[2021-01-17] MEDS: LORazepam INJ 2 MG/ML (ATIVAN) VIAL IVP SCH (20:16)
[2021-01-18 00:28] VITALS: BP 111/72
[2021-01-18] MEDS: fentaNYL INJ 100 MCG/2 ML AMP IVP PRN ×3 (01:36→14:10)
[2021-01-18] MEDS: HYDROcodone/APAP 7.5 MG/325 MG (LORTAB, LORCET PLUS) TABLET PO PRN ×2 (04:09→10:14)
[2021-01-18 04:25] VITALS: BP 134/77
[2021-01-18] MEDS: METOCLOPRAMIDE INJ 10 MG/2 ML (REGLAN) IVP SCH ×3 (05:18→22:03)
[2021-01-18] MEDS: MEROPENEM 1,000 MG in WATER (STERILE) FOR INJECTION 20 ML IV SCH ×3 (05:24→22:04)
[2021-01-18 06:36] LABS: HEMATOCRIT 32 % (35-52); HEMOGLOBIN 9.8 g/dL (11.5-16.0); MEAN CORPUSCULAR HEMOGLOBIN 28 pg (25-34); MEAN CORPUSCULAR HGB CONC 31 g/dL (32-36); MEAN CORPUSCULAR VOLUME 91 fL (80-99); MEAN PLATELET VOLUME 11.4 fL (9.0-12.2); PLATELET COUNT 265 10^3/uL (130-400); WHITE BLOOD COUNT 11.4 10^3/uL (4.3-11.0)
[2021-01-18 06:55] LABS: ALBUMIN 2.2 GM/DL (3.2-4.5); POTASSIUM 3.5 MMOL/L (3.6-5.0)
[2021-01-18 06:56] LABS: CALCIUM 8.2 MG/DL (8.5-10.1)
[2021-01-18 06:57] LABS: TOTAL PROTEIN 6.4 GM/DL (6.4-8.2)
[2021-01-18 06:59] LABS: BILIRUBIN,TOTAL 0.8 MG/DL (0.1-1.0)
[2021-01-18 07:01] LABS: CREATININE SERUM 0.65 MG/DL (0.60-1.30)
[2021-01-18 07:30] VITALS: BP 133/87
--- NOTE | 2021-01-18 09:29 | Progress Note ---
Subjective Date Seen by a Provider: Jan 18, 2021 Time Seen by a Provider: 09:27 Subjective/Events-last exam Fwup sepsis, acute hepatitis, HTN, edema, dyspepsia and anorexia, diet controlled diabetes mellitus, weakness/debility with recurrent falls. Diuresed well with IV lasix. Appetite improved slightly. Objective Exam Vital Signs Date Time Temp Pulse Resp B/P (MAP) Pulse Ox O2 Delivery O2 Flow Rate FiO2 01/18/21 07:30 35.6 98 20 133/87 (102) 96 Room Air 01/18/21 04:25 35.9 94 18 134/77 (96) 94 Room Air 01/18/21 00:28 35.0 106 20 111/72 (85) 93 Room Air 01/17/21 21:00 Room Air 01/17/21 19:43 36.4 87 18 117/58 (77) 94 Room Air 01/17/21 15:49 36.0 84 20 137/65 (89) 96 Room Air 01/17/21 11:55 36.1 107 20 130/58 (82) 93 Room Air I & O 01/18/21 07:00 Intake Total 1710 ml Output Total 4900 ml Balance -3190 ml Capillary Refill : General Appearance: No Apparent Distress Respiratory: Crackles, Decreased Breath Sounds Cardiovascular: Regular Rate, Rhythm, Systolic Murmur Gastrointestinal: normal bowel sounds, non tender, soft Extremity: Non Tender, No Calf Tenderness, Pedal Edema (2 plus) Neurologic/Psychiatric: Alert, Oriented x3 Skin: Warm/Dry Results Lab Laboratory Tests 01/18/21 05:15: Sodium Level 138, Potassium Level 3.5L, Chloride Level 97L, Carbon Dioxide Level 29, Anion Gap 12, Blood Urea Nitrogen 11, Creatinine 0.65, Estimat Glomerular Filtration Rate 92, BUN/Creatinine Ratio 17, Glucose Level 132H, Calcium Level 8.2L, Corrected Calcium 9.6, Total Bilirubin 0.8, Aspartate Amino Transf (AST/SGOT) 22, Alanine Aminotransferase (ALT/SGPT) 13, Alkaline Phosphatase 295H , Total Protein 6.4, Albumin 2.2L 01/18/21 05:30: White Blood Count 11.4H, Red Blood Count 3.49L, Hemoglobin 9.8L, Hematocrit 32L, Mean Corpuscular Volume 91, Mean Corpuscular Hemoglobin 28, Mean Corpuscular Hemoglobin Concent 31L, Red Cell Distribution Width 16.1H, Platelet Count 265, Mean Platelet Volume 11.4 Microbiology 01/16/21 Urine Culture - Preliminary, Resulted YEAST 01/14/21 Blood Culture - Preliminary, Resulted No growth Assessment/Plan Assessment/Plan Assess & Plan/Chief Complaint 1. Sepsis with E. Coli--continue meropenem 2. UTI with yeast--continue diflucan 3. Acute Hepatitis--liver enzymes coming down 4. Liver Lesion/Mass--GI planning on seeing patient once DCed from hospital 5. Hypertension--stable 6. Diet Controlled DMII--on accuchecks with SSI 7. Dyspepsia--on protonix and reglan started 8. Weakness/Debility/Recurrent Falls--PT/OT started and looking at rehab when bed available 9. Edema/Third Spacing--will give albumin and lasix today--leave gandhi catheter today due to high fall risk and plan on DC tomorrow 10. Hypokalamia--replace potassium, check magnesium level LISSETTE WATERS DO Jan 18, 2021 09:29
[2021-01-18] MEDS ORDERED: ALBUMIN 25% 25 GM/100 ML 50 ML IV ONE (09:30)
[2021-01-18] MEDS ORDERED: KCL 20 MEQ TAB (K-DUR) PO ONE (09:30)
[2021-01-18] MEDS ORDERED: FUROSEMIDE 40 MG/4 ML INJ (LASIX) IVP ONE (09:30)
[2021-01-18] MEDS: DOCUSATE SODIUM 100 MG (COLACE) CAP PO SCH (10:10)
[2021-01-18] MEDS: fluCOnazole (DIFLUCAN) 100 MG TAB PO SCH (10:11)
[2021-01-18] MEDS: PANTOPRAZOLE 40 MG (PROTONIX) VIAL IV SCH (10:11)
[2021-01-18] MEDS: ENOXAPARIN 40 MG/0.4 ML (LOVENOX) SYR SC SCH ×2 (10:11→21:14)
[2021-01-18] MEDS: 1/2 NS W/KCL 20 MEQ/L 1,000 ML IV SCH ×2 (10:12→22:02)
[2021-01-18] MEDS: LACTOBACILLUS ACIDOPHILUS (PROBIOTIC) CAPSULE PO SCH ×3 (10:12→18:08)
--- NOTE | 2021-01-18 11:27 | Progress Note ---
Subjective Date Seen by a Provider: Jan 18, 2021 Time Seen by a Provider: 10:00 Subjective/Events-last exam Patient seen with Dr. Pena. Patient reports doing ok today but still weak and having back pain. Some nausea but vomiting. Did eat some breakfast this AM. Small BMs. Does report some bloating and abdominal tenderness. Edema better after lasix yesterday. Objective Exam Vital Signs Date Time Temp Pulse Resp B/P (MAP) Pulse Ox O2 Delivery O2 Flow Rate FiO2 01/18/21 08:00 Room Air 01/18/21 07:30 35.6 98 20 133/87 (102) 96 Room Air 01/18/21 04:25 35.9 94 18 134/77 (96) 94 Room Air 01/18/21 00:28 35.0 106 20 111/72 (85) 93 Room Air 01/17/21 21:00 Room Air 01/17/21 19:43 36.4 87 18 117/58 (77) 94 Room Air 01/17/21 15:49 36.0 84 20 137/65 (89) 96 Room Air 01/17/21 11:55 36.1 107 20 130/58 (82) 93 Room Air I & O 01/18/21 07:00 Intake Total 1710 ml Output Total 4900 ml Balance -3190 ml Capillary Refill : General Appearance: No Apparent Distress, WD/WN Neck: Normal Inspection, Supple Respiratory: No Accessory Muscle Use, No Respiratory Distress Cardiovascular: Regular Rate, Rhythm, No JVD Gastrointestinal: normal bowel sounds, soft, tenderness (Diffuse) Extremity: Normal Inspection, Normal Range of Motion, Swelling (approx 1+) Neurologic/Psychiatric: Alert, Oriented x3 Skin: Normal Color, Warm/Dry Results Lab Laboratory Tests 01/18/21 05:15: Sodium Level 138, Potassium Level 3.5L, Chloride Level 97L, Carbon Dioxide Level 29, Anion Gap 12, Blood Urea Nitrogen 11, Creatinine 0.65, Estimat Glomerular Filtration Rate 92, BUN/Creatinine Ratio 17, Glucose Level 132H, Calcium Level 8.2L, Corrected Calcium 9.6, Magnesium Level 1.8, Total Bilirubin 0.8, Aspartate Amino Transf (AST/SGOT) 22, Alanine Aminotransferase (ALT/SGPT) 13, Alkaline Phosphatase 295H, Total Protein 6.4, Albumin 2.2L 01/18/21 05:30: White Blood Count 11.4H, Red Blood Count 3.49L, Hemoglobin 9.8L, Hematocrit 32L, Mean Corpuscular Volume 91, Mean Corpuscular Hemoglobin 28, Mean Corpuscular Hemoglobin Concent 31L, Red Cell Distribution Width 16.1H, Platelet Count 265, Mean Platelet Volume 11.4 Microbiology 01/16/21 Urine Culture - Preliminary, Resulted YEAST Enterococcus faecium 01/14/21 Blood Culture - Preliminary, Resulted No growth Assessment/Plan Assessment/Plan Assess & Plan/Chief Complaint A 60 year old female with sepsis s/p lap samy and ERCP with stent placement and bilateral atelectasis/pl effusion. cont iv abx. diet as tolerated. ARU at some point. GI for further evaluation. CLAIRE LYMAN SLEEVE SETTER LOCKSTITCH Jan 18, 2021 11:27
[2021-01-18 11:29] VITALS: BP 131/70
[2021-01-18] MEDS: ONDANSETRON 4 MG/2 ML (SDV) Z0FRAN IVP PRN ×2 (13:17→22:03)
[2021-01-18 15:44] VITALS: BP 120/75
[2021-01-18 20:00] VITALS: BP 121/77
[2021-01-18] MEDS: KCL 20 MEQ TAB (K-DUR) PO SCH ×2 (21:13→23:02)
[2021-01-18] MEDS: LORazepam INJ 2 MG/ML (ATIVAN) VIAL IVP SCH (22:05)
[2021-01-19 00:44] VITALS: BP 115/74
[2021-01-19] MEDS: fentaNYL INJ 100 MCG/2 ML AMP IVP PRN (02:48)
[2021-01-19] MEDS: METOCLOPRAMIDE INJ 10 MG/2 ML (REGLAN) IVP SCH ×3 (05:30→21:02)
[2021-01-19] MEDS: MEROPENEM 1,000 MG in WATER (STERILE) FOR INJECTION 20 ML IV SCH ×3 (05:30→21:02)
[2021-01-19 06:14] LABS: HEMATOCRIT 34 % (35-52); HEMOGLOBIN 10.5 g/dL (11.5-16.0); MEAN CORPUSCULAR HEMOGLOBIN 28 pg (25-34); MEAN CORPUSCULAR HGB CONC 31 g/dL (32-36); MEAN CORPUSCULAR VOLUME 91 fL (80-99); MEAN PLATELET VOLUME 11.5 fL (9.0-12.2); PLATELET COUNT 308 10^3/uL (130-400); WHITE BLOOD COUNT 13.3 10^3/uL (4.3-11.0)
[2021-01-19 06:38] LABS: ALBUMIN 2.4 GM/DL (3.2-4.5); BILIRUBIN,TOTAL 1.7 MG/DL (0.1-1.0); CALCIUM 8.8 MG/DL (8.5-10.1); CREATININE SERUM 0.62 MG/DL (0.60-1.30); TOTAL PROTEIN 6.9 GM/DL (6.4-8.2)
[2021-01-19 08:00] VITALS: BP 149/88
[2021-01-19] MEDS: LACTOBACILLUS ACIDOPHILUS (PROBIOTIC) CAPSULE PO SCH ×3 (08:00→14:41)
[2021-01-19] MEDS: 1/2 NS W/KCL 20 MEQ/L 1,000 ML IV SCH ×3 (08:34→21:04)
[2021-01-19] MEDS: ENOXAPARIN 40 MG/0.4 ML (LOVENOX) SYR SC SCH ×2 (08:34→21:02)
[2021-01-19] MEDS: PANTOPRAZOLE 40 MG (PROTONIX) VIAL IV SCH (08:34)
[2021-01-19] MEDS: KCL 20 MEQ TAB (K-DUR) PO SCH ×2 (08:35→21:06)
[2021-01-19] MEDS: DOCUSATE SODIUM 100 MG (COLACE) CAP PO SCH (08:35)
[2021-01-19] MEDS: fluCOnazole (DIFLUCAN) 100 MG TAB PO SCH (08:35)
--- NOTE | 2021-01-19 08:37 | Progress Note ---
Subjective Subjective Date Seen by Provider: Jan 19, 2021 Time Seen by Provider: 08:30 PT REPORTS THAT SHE IS FEELING FATIGUED THIS MORNING. PT REPORTS THAT SHE CHOKED ON POTASSIUM THIS MORNING AND IS FEELING POORLY. SHE HAD PERSISTENT NAUSEA THIS MORNING. Review of Systems General: No Night Sweats; Fatigue HEENT: No Head Aches, No Dysphasia Pulmonary: No Dyspnea, No Cough Cardiovascular: Edema (LOWER LEGS); No: Chest Pain, Palpitations Gastrointestinal: Nausea, Vomiting, Abdominal Pain, Diarrhea (INTERMITTENT - DEPENDING ON WHAT SHE EATS); No: Constipation Genitourinary: No Dysuria, No Incontinence Musculoskeletal: other (PAIN IN BUTTOCKS) Neurological: Weakness; No: Confusion All Other Systems Reviewed All Other Systems Reviewed: Yes Objective Exam Vital Signs Vital Signs Date Time Temp Pulse Resp B/P (MAP) Pulse Ox O2 Delivery O2 Flow Rate FiO2 01/19/21 00:44 36.5 95 20 115/74 (88) 95 Room Air 01/18/21 21:00 Room Air 01/18/21 20:00 34.6 89 18 121/77 (92) 97 Room Air 01/18/21 15:44 35.6 87 18 120/75 (90) 97 Room Air 01/18/21 11:29 35.8 89 18 131/70 (90) 96 Room Air I & O 01/19/21 07:00 Intake Total 390 ml Output Total 2275 ml Balance -1885 ml General Appearance: WD/WN, Mild Distress Eyes: Bilateral Eye Normal Inspection, Bilateral Eye PERRL, Bilateral Eye EOMI HEENT: PERRL/EOMI Neck: Normal Inspection, Supple Respiratory: No Accessory Muscle Use, No Respiratory Distress Cardiovascular: Regular Rate, Rhythm, No JVD Gastrointestinal: Soft, Abnormal Bowel Sounds, Tenderness (ruq/EPIGASTRIUM) Rectal: Deferred Extremity: Normal Inspection, Normal Range of Motion, Swelling (approx 1+) Neurologic/Psychiatric: Alert, Oriented x3 Skin: Normal Color, Warm/Dry Lymphatic: No Adenopathy Results Lab Laboratory Tests 01/19/21 05:30: White Blood Count 13.3H, Red Blood Count 3.74L, Hemoglobin 10.5L, Hematocrit 34L , Mean Corpuscular Volume 91, Mean Corpuscular Hemoglobin 28, Mean Corpuscular Hemoglobin Concent 31L, Red Cell Distribution Width 15.9H, Platelet Count 308, M renetta Platelet Volume 11.5, Sodium Level 136, Potassium Level 4.0, Chloride Level 97L, Carbon Dioxide Level 28, Anion Gap 11, Blood Urea Nitrogen 11, Creatinine 0.62, Estimat Glomerular Filtration Rate 98, BUN/Creatinine Ratio 18, Glucose Level 121H, Calcium Level 8.8, Corrected Calcium 10.1, Total Bilirubin 1.7H, Aspartate Amino Transf (AST/SGOT) 59H, Alanine Aminotransferase (ALT/SGPT) 21, Alkaline Phosphatase 531H, Total Protein 6.9, Albumin 2.4L Microbiology 01/16/21 Urine Culture - Preliminary, Resulted YEAST Enterococcus faecium 01/14/21 Blood Culture - Preliminary, Resulted No growth Assessment/Plan Assessment/Plan Admission Dx ACUTE INJURY HEPATITIS ELEVATED ALKALINE PHOSPHATASE LEUKOCYTOSIS HYPERBILIRUBINEMIA WEIGHT LOSS MALAISE ANOREXIA NAUSEA EMESIS WEAKNESS AND FALLING EPISODES DIET CONTROLLED DIABETES MELLITUS ANEMIA HYPOKALEMIA Assessment and Plan ACUTE INJURY HEPATITIS ELEVATED ALKALINE PHOSPHATASE LEUKOCYTOSIS URINARY TRACT INFECTION, SEPSIS HYPERBILIRUBINEMIA WEIGHT LOSS MALAISE ANOREXIA NAUSEA EMESIS WEAKNESS AND FALLING EPISODES DIET CONTROLLED DIABETES MELLITUS ANEMIA HYPOKALEMIA ACUTE INJURY HEPATITIS WITH PERSISTENTLY ELEVATED ALKALINE PHOSPHATASE, LEUKOCYTOSIS AND HYPERBILIRUBINEMIA - DISCUSSED CASE WITH DR. LUPE SIMON, BLOOD CULTURES - CT SCAN OF ABD/PELVIS ORDERED - REPORT FOLLOWS: EXAMINATION: There has been development of mild bilateral pleural fluid. Note is made of internal biliary stenting. Gallbladder is surgically absent. Extensive heterogeneous density is again seen throughout the liver. The splenic, portal and hepatic veins are somewhat poorly visualized, may be due to small size as well as suboptimal timing. Heterogeneity of liver parenchyma may in part be related to perfusion abnormality. There is mild prominence of the pancreatic head although this is not significantly changed. The adrenal glands remain significantly enlarged similar to the previous study. No focal renal abnormality is identified. Gallbladder is absent. There is mild pelvic free fluid. No organized fluid collection is identified. IMPRESSION: Development of bilateral pleural fluid with continued pneumobilia with biliary stent in place. There is heterogeneous perfusion to the liver. This could in part be related to arterial and/or hepatic venous flow abnormality. Clinical correlation and possible MRI follow up would be of use. Consideration could be given to CTA of the abdomen with hepatic protocol to include arterial, portal venous and delayed imaging. - I DISCUSSED THE SCAN WITH DR. EUBANKS - HE RECOMMENDED MRI IMAGING OF THE LIVER VASCULATURE THERE IS CONCERN FOR SLUGGISH FLOW OF THE ARTERIES AND THE WORRY WOULD BE THAT THERE HAS BEEN INJURY TO THE VASCULATURE - HE NOTED THAT THE STUDY WAS SOMEWHAT POOR DUE TO HER SLOW VASCULAR FLOW BUT DID NOT SEE A CLOT PRESENT BASED ON THE IMAGING WITH FLOW THROUGH THE ARTERIES. HE FELT LIKE AN ABSCESS WAS LESS LIKELY, BUT THE POOR PERFUSION OF THE LIVER LED TO DECREASED IMAGING QUALITY. CT ANGIOGRAM FROM YESTERDAY FOLLOWS:IMPRESSION: This is a complex case. The area of diminished density in the caudate lobe and the left lobe could be secondary to a separate pathologic process. The possibility that the portal vein and hepatic flow has been compromised should also be considered. I would recommend that a Doppler examination of the liver be performed for further study. LIVER DOPPLER FROM YESTERDAY FOLLOWS: IMPRESSION: 1. The portal and hepatic veins are patent. 2. The area of altered echogenicity within the left lobe of the liver seen previously does not appear to have changed significantly. 3. These results will be discussed with Dr. Doreen Garcia. - CASE DISCUSSED WITH DR. SANTIAGO - HE IS WONDERING ABOUT [facility] -- HE REQUESTED IMAGING TO BE CLOUDED SO HE COULD REVIEW HER CASE, MAKE RECOMMENDATIONS AND HE HAS INDICATED HE WILL CALL NEXT WEEK WHEN [facility] IS ON INPT REHAB FOR HER TO BE SEEN IN HIS OFFICE. HE DID NOT MAKE ANY FURTHER RECOMMENDATIONS UNTIL HE HAS REVIEWED HER PERTINENT IMAGING STUDIES. - APPRECIATE HIS INPUT WEIGHT LOSS DUE TO ANOREXIA AND NAUSEA/EMESIS - - DIETARY CONSULT - STARTED REGLAN AT 5MG IV TID - ADDED PRN ZOFRAN UTI WITH ENTEROCOCCUS, SEPSIS WITH ECOLI - PT ON MEROPENEM - MONITOR FURTHER CULTURE RESULTS - YEAST ON URINE - PT TO CONTINUE WITH DIFLUCAN FOR A FEW MORE DAYS - WILL HAVE TO CLOSELY MONITOR LIVER PANEL MALAISE, WEAKNESS AND FALLING EPISODES - CONSULT TO PHYSICAL AND OCCUPATIONAL THERAPY WELL INPT REHAB EVAL. DIET CONTROLLED DIABETES MELLITUS - AGAIN -CONSULT DIETARY, MONITOR FSBS ONCE TAKING IN MORE PO ANEMIA - REPEAT LABS HYPOKALEMIA - REPLENISH WITH IV POTASSIUM DUE TO NAUSEA AND EMESIS WITH POTASSIUM PO DVT PROPHYLAXIS WITH SCD'S AND LOVENOX GI PROPHYLAXIS WITH PROBIOTICS AND PROTONIX. Admission Dx ACUTE INJURY HEPATITIS ELEVATED ALKALINE PHOSPHATASE LEUKOCYTOSIS HYPERBILIRUBINEMIA WEIGHT LOSS MALAISE ANOREXIA NAUSEA EMESIS WEAKNESS AND FALLING EPISODES DIET CONTROLLED DIABETES MELLITUS ANEMIA HYPOKALEMIA Clinical Quality Measures Admission Status Admission Dx ACUTE INJURY HEPATITIS ELEVATED ALKALINE PHOSPHATASE LEUKOCYTOSIS HYPERBILIRUBINEMIA WEIGHT LOSS MALAISE ANOREXIA NAUSEA EMESIS WEAKNESS AND FALLING EPISODES DIET CONTROLLED DIABETES MELLITUS ANEMIA HYPOKALEMIA DOREEN GARCIA MD Jan 19, 2021 08:37
--- NOTE | 2021-01-19 09:12 | Occupational Ther Daily Note ---
OT Current Status-Daily Note Subjective Pt was sitting up in bed upon OT arrival. Pt stated she was tired and worn out but agreed to OT tx session. Mental Status/Objective Patient Orientation: Person, Place, Situation Attachments: Dailey Catheter, IV ADL-Treatment Therapy Code Descriptions/Definitions Functional [place] Measure: 0=Not Assessed/NA 4=Minimal Assistance 1=Total Assistance 5=Supervision or Setup 2=Maximal Assistance 6=Modified [place] 3=Moderate Assistance 7=Complete IndependenceSCALE: Activities may be completed with or without assistive devices. 8-Nfbxsxhdgv-fonqmxb completes the activity by him/herself with no assistance from a helper. 5-Set-up or Clean-up Assistance-helper sets up or cleans up; patient completes activity. [place] assists only prior to or following the activity. 4-Supervision or Touching Assistance-helper provides verbal cues and/or touching/steadying and/or contact guard assistance as patient completes activity. Assistance may be provided throughout the activity or intermittently. 3-Partial/Moderate Assistance-helper does LESS THAN HALF the effort. [place] lifts, holds or supports trunk or limbs, but provides less than half the effort. 2-Substantial/Maximal Assistance-helper does MORE THAN HALF the effort. [place] lifts or holds trunk or limbs and provides more than half the effort. 5-Jnkmkqzwv-cnbovh does ALL the effort. Patient does none of the effort to complete the activity. Or, the assistance of 2 or more helpers is required for the patient to complete the activity. If activity was not attempted, code reason: 7-Patient Refused. 9-Not Applicable-not attempted and the patient did not perform the activity before the current illness, exacerbation or injury. 10-Not Attempted due to Environmental Limitations-(lack of equipment, weather restraints, etc.). 88-Not Attempted due to Medical Conditions or Safety Concerns. Other Treatment Pt participated in T-band medium resistance BUE exercises at A. Pt performed x5 reps if each exercise: shd abd, shd horizontal abd, elbow flex, and elbow ext at SBA (min skilled verbal cues for proper technique) to support strength and endurance for ADL function. Pt able to recall 4/5 exercises. Post tx, pt was seated in bed, call light in reach, and all needs met. Education OT Patient Education: Correct positioning, Energy conservation, Exercise program, Home exercise program, Progress toward Goal/Update tx plan, Purpose of tx/functional activities, Safety issues Teaching Recipient: Patient, Friend Teaching Methods: Discussion Response to Teaching: Verbalize Understanding OT [facility] Goals Cleaning [place] Goals Time Frame: Jan 30, 2021 Eating (QC): 6 Oral Hygiene (QC): 6 Toileting Hygiene (QC): 4 Shower/Bathe Self (QC): 4 Upper Body Dressing (QC): 5 Lower Body Dressing (QC): 4 On/Off Footwear (QC): 4 Additional Goals: 1-Demonstrate ADL Tasks, 2-Verbalize Understanding, 3-Improv eStrength/Altaf 1=Demonstrate adherence to instructed precautions during ADL tasks. 2=Patient will verbalize/demonstrate understanding of assistive devices/modifications for ADL. 3=Patient will improve strength/tolerance for activity to enable patient to p erform ADL's. OT Education/Plan Problem List/Assessment Assessment: Decreased Activ Tolerance, Decreased Safety Aware, Decreased UE Strength, Impaired Coordination, Impaired Self-Care Skills Discharge Recommendations Plan/Recommendations: Continue POC Treatment Plan/Plan of Care Patient would benefit from OT for education, treatment and training to promote independence in ADL's, mobility, safety and/or upper extremity function for ADL's. Plan of Care: ADL Retraining, Functional Mobility, UE Funct Exercise/Act Treatment Duration: Jan 30, 2021 Frequency: 5 times per week Estimated Hrs Per Day: .25 hour per day Rehab Potential: Fair Time/GCodes Start Time: 08:50 Stop Time: 09:02 Total Time Billed (hr/min): 12 Billed Treatment Time 1 visit, EX MELINA TREJO OT Jan 19, 2021 09:12
--- NOTE | 2021-01-19 11:54 | Physical Therapy Daily Note ---
PT Daily Note-Current Subjective Patient agrees to PT. Sister present. Mental Status Patient Orientation: Normal For Age Attachments: IV Transfers SCALE: Activities may be completed with or without assistive devices. 6-Ftuiqqjktt-jqretvp completes the activity by him/herself with no assistance from a helper. 5-Set-up or Clean-up Assistance-helper sets up or cleans up; patient completes activity. [place] assists only prior to or following the activity. 4-Supervision or Touching Assistance-helper provides verbal cues and/or touching/steadying and/or contact guard assistance as patient completes activity. Assistance may be provided throughout the activity or intermittently. 3-Partial/Moderate Assistance-helper does LESS THAN HALF the effort. [place] lift s, holds or supports trunk or limbs, but provides less than half the effort. 2-Substantial/Maximal Assistance-helper does MORE THAN HALF the effort. [place] lifts or holds trunk or limbs and provides more than half the effort. 5-Xuttkmhhc-wxzaau does ALL the effort. Patient does none of the effort to complete the activity. Or, the assistance of 2 or more helpers is required for the patient to complete the activity. If activity was not attempted, code reason: 7-Patient Refused. 9-Not Applicable-not attempted and the patient did not perform the activity before the current illness, exacerbation or injury. 10-Not Attempted due to Environmental Limitations-(lack of equipment, weather restraints, etc.). 88-Not Attempted due to Medical Conditions or Safety Concerns. Sit to Stand (QC): 4 (SBA) Weight Bearing Right Lower Extremity: Right Weight Bearing/Tolerated Left Lower Extremity: Left Weight Bearing/Tolerated Gait Training Does the Patient Walk?: Yes Distance: 80' Walk 10 feet (QC): 4 (CGA) Walk 50 ft with 2 Turns(QC): 4 (CGA) Walk 150 ft (QC): 88 Gait Assistive Device: FWW very slow, steady gait sequence with 3 standing recovery periods due to fatigue/SOA Exercises Seated Therapy Exercises: Ankle pumps, Long arc quads, Hip flexion, Reaching activity (trunk rotation deep breathing exercises) Seated Reps: 15 Assessment Patient improving with gross motor skills. Patient remains up in recliner. Patient instructed to perform exercises PRN. PT Longterm Goals Longterm Goals PT Longterm Goals Time Frame: Jan 31, 2021 Roll Left & Right (QC): 5 Sit to Lying (QC): 5 Lying-Sitting on Side/Bed(QC): 5 Sit to Stand (QC): 5 Chair/Jtm-dv-Qacps Xfer(QC): 5 Toilet Transfer (QC): 5 Walk 10 feet (QC): 5 Walk 50ft with 2 Turns (QC): 5 Walk 150 ft (QC): 5 PT Plan Treatment/Plan Treatment Plan: Continue Plan of Care Treatment Plan: Bed Mobility, Education, Functional Activity Altaf, Functional Strength, Gait, Safety, Therapeutic Exercise, Transfers Treatment Duration: Jan 31, 2021 Frequency: 6 times per week Estimated Hrs Per Day: .25 hour per day Patient and/or Family Agrees t: Yes Time/GCodes Time In: 1044 Time Out: 1107 Total Billed Treatment Time: 23 Total Billed Treatment 1 visit EX 9 min GT 14 min NAHID TORRES PT Jan 19, 2021 11:54
[2021-01-19] MEDS ORDERED: WATER (STERILE) FOR INJECTION 20 ML ONE (12:29)
[2021-01-19] MEDS ORDERED: FUROSEMIDE 40 MG/4 ML INJ (LASIX) IVP ONE (14:00)
[2021-01-19] MEDS: POTASSIUM CL 10MEQ/50ML IVPB 50 ML IV SCH ×4 (14:17→17:58)
[2021-01-19 16:18] VITALS: BP 115/81
--- NOTE | 2021-01-19 16:23 | Diagnostic Imaging Report ---
INDICATION: Peripheral vascular disease. COMPARISON: None. FINDINGS: The ankle-brachial indices were obtained from the posterior tibial and dorsalis pedis arteries bilaterally. The right LORI is 1.09 and the left LORI 1.04. IMPRESSION: Normal-appearing ankle-brachial indices. Dictated by: Dictated on workstation # [id number]
--- NOTE | 2021-01-19 17:37 | Progress Note ---
Subjective Date Seen by a Provider: Jan 19, 2021 Time Seen by a Provider: 17:00 Subjective/Events-last exam Patient seen with Dr. Pena. Patient reports had some vomiting yesterday afternoon and nausea last night. Having some left side abdominal pain. Tolerating small amount of food today. Reports continued lower back pain. Passing flatus, but only having very small amount of stool occasionally. Objective Exam Vital Signs Date Time Temp Pulse Resp B/P (MAP) Pulse Ox O2 Delivery O2 Flow Rate FiO2 01/19/21 16:18 36.3 100 20 115/81 (92) 97 Room Air 01/19/21 08:00 36.4 86 18 149/88 (108) 94 Room Air 01/19/21 08:00 Room Air 01/19/21 00:44 36.5 95 20 115/74 (88) 95 Room Air 01/18/21 21:00 Room Air 01/18/21 20:00 34.6 89 18 121/77 (92) 97 Room Air I & O 01/19/21 07:00 Intake Total 390 ml Output Total 2275 ml Balance -1885 ml Capillary Refill : General Appearance: No Apparent Distress, WD/WN Neck: Normal Inspection, Supple Respiratory: No Accessory Muscle Use, No Respiratory Distress Cardiovascular: Regular Rate, Rhythm, No Edema Gastrointestinal: normal bowel sounds, soft, tenderness (Left side) Extremity: Normal Range of Motion, Swelling (approx 1-2+) Neurologic/Psychiatric: Alert, Oriented x3 Skin: Normal Color, Warm/Dry Results Lab Laboratory Tests 01/19/21 05:30: White Blood Count 13.3H, Red Blood Count 3.74L, Hemoglobin 10.5L, Hematocrit 34L , Mean Corpuscular Volume 91, Mean Corpuscular Hemoglobin 28, Mean Corpuscular Hemoglobin Concent 31L, Red Cell Distribution Width 15.9H, Platelet Count 308, Mean Platelet Volume 11.5, Sodium Level 136, Potassium Level 4.0, Chloride Level 97L, Carbon Dioxide Level 28, Anion Gap 11, Blood Urea Nitrogen 11, Creatinine 0.62, Estimat Glomerular Filtration Rate 98, BUN/Creatinine Ratio 18, Glucose Level 121H, Calcium Level 8.8, Corrected Calcium 10.1, Total Bilirubin 1.7H, Aspartate Amino Transf (AST/SGOT) 59H, Alanine Aminotransferase (ALT/SGPT) 21, Alkaline Phosphatase 531H, Total Protein 6.9, Albumin 2.4L 01/19/21 14:20: Microbiology 01/16/21 Urine Culture - Final, Complete YEAST Enterococcus faecium 01/14/21 Blood Culture - Preliminary, Resulted No growth Assessment/Plan Assessment/Plan Assess & Plan/Chief Complaint A 60 year old female with sepsis s/p lap samy and ERCP with stent placement and bilateral atelectasis/pl effusion. VSS WBC 13.3 Tbili - 1.7 Alk Phos - 531 Constipation - Will start miralax daily Lower Back pain - will check Thoracic and Lumbar spine x-ray Will check CBC, CMP, amylase and lipase cont iv abx. diet as tolerated. ARU at some point. GI for further evaluation. CLAIRE LYMAN FREIGHT BROKER Jan 19, 2021 17:37
[2021-01-19] MEDS: LORazepam INJ 2 MG/ML (ATIVAN) VIAL IVP SCH (21:03)
[2021-01-20] VITALS: BP 126/72
[2021-01-20] MEDS: fentaNYL INJ 100 MCG/2 ML AMP IVP PRN ×2 (00:40→05:12)
[2021-01-20] MEDS: METOCLOPRAMIDE INJ 10 MG/2 ML (REGLAN) IVP SCH ×3 (05:11→21:46)
[2021-01-20] MEDS: MEROPENEM 1,000 MG in WATER (STERILE) FOR INJECTION 20 ML IV SCH ×3 (05:11→21:47)
[2021-01-20] MEDS: 1/2 NS W/KCL 20 MEQ/L 1,000 ML IV SCH ×2 (05:40→15:44)
[2021-01-20 06:24] LABS: BASOPHILS % (AUTO) 0 % (0-10); EOSINOPHILS % (AUTO) 0 % (0-10); HEMATOCRIT 34 % (35-52); HEMOGLOBIN 10.5 g/dL (11.5-16.0); LYMPHOCYTES # (AUTO) 1.2 10^3/uL (1.0-4.0); LYMPHOCYTES % (AUTO) 9 % (12-44); MEAN CORPUSCULAR HEMOGLOBIN 28 pg (25-34); MEAN CORPUSCULAR HGB CONC 31 g/dL (32-36); MEAN CORPUSCULAR VOLUME 91 fL (80-99); MONOCYTES # (AUTO) 0.7 10^3/uL (0.0-1.0); MONOCYTES % (AUTO) 6 % (0-12); NEUTROPHILS # (AUTO) 11.1 10^3/uL (1.8-7.8); NEUTROPHILS % (AUTO) 84 % (42-75); PLATELET COUNT 256 10^3/uL (130-400); WHITE BLOOD COUNT 13.2 10^3/uL (4.3-11.0)
[2021-01-20 06:48] LABS: ALBUMIN 2.2 GM/DL (3.2-4.5); BILIRUBIN,TOTAL 0.9 MG/DL (0.1-1.0); CALCIUM 8.7 MG/DL (8.5-10.1); CREATININE SERUM 0.62 MG/DL (0.60-1.30); POTASSIUM 4.5 MMOL/L (3.6-5.0); TOTAL PROTEIN 6.5 GM/DL (6.4-8.2)
[2021-01-20 08:00] VITALS: BP 126/89
[2021-01-20] MEDS: LACTOBACILLUS ACIDOPHILUS (PROBIOTIC) CAPSULE PO SCH ×3 (08:02→17:21)
[2021-01-20] MEDS ORDERED: polyethylene glycoL POWDER 17 GM (MIRALAX) PACK PO SCH (09:00)
--- NOTE | 2021-01-20 09:09 | Progress Note ---
Subjective Subjective Date Seen by Provider: Jan 20, 2021 Time Seen by Provider: 09:00 PT REPORTS THAT SHE IS FEELING FATIGUED THIS MORNING. PT VOMITING - SITTING IN CHAIR AT BEDSIDE. PT REPORTS THAT HER HYDROCODONE DOSE WAS INCREASED YESTERDAY AFTER SHE COMPLAINED TO DR. ANDRADE ABOUT BACK AND ABDOMINAL PAIN. Review of Systems General: No Night Sweats; Fatigue, Malaise, Appetite (DECREASED) HEENT: No Head Aches, No Dysphasia Pulmonary: No Dyspnea, No Cough Cardiovascular: Edema (LOWER LEGS); No: Chest Pain, Palpitations Gastrointestinal: Nausea, Vomiting, Abdominal Pain, Other (DRY HEAVING); No: Constipation Genitourinary: No Dysuria, No Incontinence Musculoskeletal: other (PAIN IN BUTTOCKS) Neurological: Weakness; No: Confusion All Other Systems Reviewed All Other Systems Reviewed: Yes Objective Exam Vital Signs Vital Signs Date Time Temp Pulse Resp B/P (MAP) Pulse Ox O2 Delivery O2 Flow Rate FiO2 01/20/21 08:00 36.5 101 20 126/89 (101) 94 Room Air 01/20/21 08:00 Room Air 01/20/21 00:00 35.7 93 19 126/72 (90) 94 Room Air 01/19/21 21:00 Room Air 01/19/21 16:18 36.3 100 20 115/81 (92) 97 Room Air I & O 01/20/21 07:00 Intake Total 1550 ml Output Total 1775 ml Balance -225 ml General Appearance: WD/WN, Anxious, Mild Distress (DUE TO NAUSEA) Eyes: Bilateral Eye Normal Inspection, Bilateral Eye PERRL, Bilateral Eye EOMI HEENT: PERRL/EOMI Neck: Normal Inspection, Supple Respiratory: No Accessory Muscle Use, No Respiratory Distress Cardiovascular: Regular Rate, Rhythm, No Edema Gastrointestinal: Soft, Abnormal Bowel Sounds, Tenderness (ruq/EPIGASTRIUM) Rectal: Deferred Extremity: Normal Range of Motion, Swelling (approx 1-2+) Neurologic/Psychiatric: Alert, Oriented x3, Depressed Affect Skin: Normal Color, Warm/Dry Lymphatic: No Adenopathy Results Lab Laboratory Tests 01/19/21 14:20: Lyme Disease Screen IgG & IgM Ab 0.54, Lyme Antibody Interpretation Negative, [place] Antibody <1:20 01/20/21 06:16: White Blood Count 13.2H, Red Blood Count 3.77L, Hemoglobin 10.5L, Hematocrit 34L , Mean Corpuscular Volume 91, Mean Corpuscular Hemoglobin 28, Mean Corpuscular Hemoglobin Concent 31L, Red Cell Distribution Width 16.2H, Platelet Count 256, Mean Platelet Volume 11.0, Immature Granulocyte % (Auto) 1, Neutrophils (%) (Auto) 84H, Lymphocytes (%) (Auto) 9L, Monocytes (%) (Auto) 6, Eosinophils (%) (Auto) 0, Basophils (%) (Auto) 0, Neutrophils # (Auto) 11.1H, Lymphocytes # (Auto) 1.2, Monocytes # (Auto) 0.7, Eosinophils # (Auto) 0.0, Basophils # (Auto) 0.0, Immature Granulocyte # (Auto) 0.1, Sodium Level 133L, Potassium Level 4.5, Chloride Level 96L, Carbon Dioxide Level 28, Anion Gap 9, Blood Urea Nitrogen 11, Creatinine 0.62, Estimat Glomerular Filtration Rate 98, BUN/Creatinine Ratio 18, Glucose Level 106H, Calcium Level 8.7, Corrected Calcium 10.1, Total Bilirubin 0.9, Aspartate Amino Transf (AST/SGOT) 32, Alanine Aminotransferase (ALT/SGPT) 17, Alkaline Phosphatase 395H, Total Protein 6.5, Albumin 2.2L, Amylase Level 16L, Lipase 18 Microbiology 01/16/21 Urine Culture - Final, Complete YEAST Enterococcus faecium 01/14/21 Blood Culture - Preliminary, Resulted No growth Assessment/Plan Assessment/Plan Admission Dx ACUTE INJURY HEPATITIS ELEVATED ALKALINE PHOSPHATASE LEUKOCYTOSIS HYPERBILIRUBINEMIA WEIGHT LOSS [place] ANOREXIA NAUSEA EMESIS WEAKNESS AND FALLING EPISODES DIET CONTROLLED DIABETES MELLITUS ANEMIA HYPOKALEMIA Assessment and Plan ACUTE INJURY HEPATITIS ELEVATED ALKALINE PHOSPHATASE LEUKOCYTOSIS URINARY TRACT INFECTION, SEPSIS HYPERBILIRUBINEMIA WEIGHT LOSS [place] ANOREXIA NAUSEA EMESIS WEAKNESS AND FALLING EPISODES DIET CONTROLLED DIABETES MELLITUS ANEMIA HYPOKALEMIA ACUTE INJURY HEPATITIS WITH PERSISTENTLY ELEVATED ALKALINE PHOSPHATASE, LEUK OCYTOSIS AND HYPERBILIRUBINEMIA - DISCUSSED CASE WITH DR. ANDRADE - CASE DISCUSSED WITH DR. SANTIAGO - HE IS WONDERING ABOUT [place] -- HE REQUESTED IMAGING TO BE CLOUDED SO HE COULD REVIEW HER CASE, MAKE RECOMMENDATIONS AND HE HAS INDICATED HE WILL CALL NEXT WEEK WHEN RB[facility] IS ON INPT REHAB FOR HER TO BE SEEN IN HIS OFFICE. HE DID NOT MAKE ANY FURTHER RECOMMENDATIONS UNTIL HE HAS REVIEWED HER PERTINENT IMAGING STUDIES. - APPRECIATE HIS INPUT WEIGHT LOSS DUE TO ANOREXIA AND NAUSEA/EMESIS - - DIETARY CONSULT - STARTED REGLAN AT 5MG IV TID - EXTRA DOSE OF REGLAN THIS MORNING - ADDED SCOPOLAMINE PATCH - ADDED PRN ZOFRAN UTI WITH ENTEROCOCCUS, SEPSIS WITH ECOLI - PT ON MEROPENEM - MONITOR FURTHER CULTURE RESULTS - YEAST ON URINE - PT TO CONTINUE WITH DIFLUCAN FOR A FEW MORE DAYS - WILL HAVE TO CLOSELY MONITOR LIVER PANEL - ADDED DOXYCYCLINE PO WELL FOR 5 DAYS MALAISE, WEAKNESS AND FALLING EPISODES - CONSULT TO PHYSICAL AND OCCUPATIONAL THERAPY WELL INPT REHAB EVAL. DIET CONTROLLED DIABETES MELLITUS - AGAIN -CONSULT DIETARY, MONITOR FSBS ONCE TAKING IN MORE PO ANEMIA - REPEAT LABS HYPOKALEMIA - REPLENISH WITH IV POTASSIUM ABDOMINAL PAIN AND BACK PAIN - STOPPED HYDROCODONE THAT MAY BE CONTRIBUTING TO HER CYCLICAL VOMITING - USE TORADOL FOR PAIN DVT PROPHYLAXIS WITH SCD'S AND LOVENOX GI PROPHYLAXIS WITH PROBIOTICS AND PROTONIX. Admission Dx ACUTE INJURY HEPATITIS ELEVATED ALKALINE PHOSPHATASE LEUKOCYTOSIS HYPERBILIRUBINEMIA WEIGHT LOSS [place] ANOREXIA NAUSEA EMESIS WEAKNESS AND FALLING EPISODES DIET CONTROLLED DIABETES MELLITUS ANEMIA HYPOKALEMIA Clinical Quality Measures Admission Status Admission Dx ACUTE INJURY HEPATITIS ELEVATED ALKALINE PHOSPHATASE LEUKOCYTOSIS HYPERBILIRUBINEMIA WEIGHT LOSS [place] ANOREXIA NAUSEA EMESIS WEAKNESS AND FALLING EPISODES DIET CONTROLLED DIABETES MELLITUS ANEMIA HYPOKALEMIA DOREEN LI MD Jan 20, 2021 09:09
[2021-01-20] MEDS ORDERED: METOCLOPRAMIDE INJ 10 MG/2 ML (REGLAN) IVP ONE (09:15)
[2021-01-20] MEDS ORDERED: KETOROLAC 60 MG/2 ML VIAL IM ONE (09:15)
[2021-01-20] MEDS ORDERED: SCOPOLAMINE 1.5 MG (TRANSDERM-SCOP) PATCH TD ONE (09:15)
[2021-01-20] MEDS: PANTOPRAZOLE 40 MG (PROTONIX) VIAL IV SCH (09:46)
[2021-01-20] MEDS: ENOXAPARIN 40 MG/0.4 ML (LOVENOX) SYR SC SCH ×2 (09:46→21:46)
[2021-01-20] MEDS: KCL 20 MEQ TAB (K-DUR) PO SCH ×3 (09:47→21:58)
[2021-01-20] MEDS: DOCUSATE SODIUM 100 MG (COLACE) CAP PO SCH (09:47)
[2021-01-20] MEDS: ONDANSETRON 4 MG/2 ML (SDV) Z0FRAN IVP PRN (09:47)
[2021-01-20] MEDS: fluCOnazole (DIFLUCAN) 100 MG TAB PO SCH (09:47)
[2021-01-20] MEDS: DOXYCYCLINE INJECTION 100 MG in NS (IVPB) 100 ML IV SCH ×2 (10:32→21:45)
--- NOTE | 2021-01-20 12:26 | Diagnostic Imaging Report ---
INDICATION: Back pain. Recent fall. Weakness. COMPARISON: None FINDINGS: Frontal and lateral radiographic views of the lumbar spine were obtained. Static alignment is preserved. There is no significant anterolisthesis or retrolisthesis. There is no evidence of jumped facets. Vertebral body heights are maintained as well. There is no evidence of acute fracture. Mild multilevel degenerative changes are noted consists of intervertebral disc height loss with endplate osteophyte formations. There is also multilevel facet arthropathy. Note is made of indwelling common bile duct stent. Large amount colonic air and stool is also present. IMPRESSION: 1. Degenerative changes, but no acute fracture or dislocation of the lumbar spine. Dictated by: Dictated on workstation # [id number]
--- NOTE | 2021-01-20 12:26 | Diagnostic Imaging Report ---
INDICATION: Fall. Now with back pain. COMPARISON: CT dated 01/15/2021. FINDINGS: Frontal and lateral radiographic views of the thoracic spine were obtained. Please note, cervicothoracic junction is obscured by overlying osseous and soft tissue structures. Visualized portions of the thoracic spine show preservation of normal static alignment. There is no evidence of jumped facets. Vertebral body heights are preserved as well. There is no convincing evidence of acute fracture. Multilevel degenerative changes are present and consistent with intervertebral disc height loss with endplate osteophyte formations. Included portions of the lungs are clear. IMPRESSION: 1. Multilevel degenerative changes, but no evidence of acute fracture or dislocation of the thoracic spine. Dictated by: Dictated on workstation # [id number]
--- NOTE | 2021-01-20 13:17 | Physical Therapy Daily Note ---
PT Daily Note-Current Subjective Patient agrees to PT. Family present. Patient reports she is feeling better than earlier. Mental Status Patient Orientation: Normal For Age Attachments: Dailey Catheter, IV Transfers SCALE: Activities may be completed with or without assistive devices. 3-Tnanllzmxp-xlkgezp completes the activity by him/herself with no assistance from a helper. 5-Set-up or Clean-up Assistance-helper sets up or cleans up; patient completes activity. [place] assists only prior to or following the activity. 4-Supervision or Touching Assistance-helper provides verbal cues and/or touching/steadying and/or contact guard assistance as patient completes activity. Assistance may be provided throughout the activity or intermittently. 3-Partial/Moderate Assistance-helper does LESS THAN HALF the effort. [place] lifts, holds or supports trunk or limbs, but provides less than half the effort. 2-Substantial/Maximal Assistance-helper does MORE THAN HALF the effort. [place] lifts or holds trunk or limbs and provides more than half the effort. 0-Dgxuicfwl-wvkwoy does ALL the effort. Patient does none of the effort to complete the activity. Or, the assistance of 2 or more helpers is required for the patient to complete the activity. If activity was not attempted, code reason: 7-Patient Refused. 9-Not Applicable-not attempted and the patient did not perform the activity before the current illness, exacerbation or injury. 10-Not Attempted due to Environmental Limitations-(lack of equipment, weather restraints, etc.). 88-Not Attempted due to Medical Conditions or Safety Concerns. Lying to Sitting/Side of Bed(Q: 3 Sit to Stand (QC): 4 Chair/Ptu-mh-Bzdez Xfer(QC): 4 Weight Bearing Right Lower Extremity: Right Weight Bearing/Tolerated Left Lower Extremity: Left Weight Bearing/Tolerated Gait Training Does the Patient Walk?: Yes Distance: 100' Walk 10 feet (QC): 4 Walk 50 ft with 2 Turns(QC): 4 Gait Assistive Device: FWW slow, steady with 3 standing recovery periods. Exercises Supine Ex: Ankle pumps Seated Therapy Exercises: Ankle pumps, Long arc quads, Hip flexion Seated Reps: 15 (2 sets) Assessment Patient progressing slowly. Patient improving with distance with gait. VC's for body placement in FWW. Continue to increase activity as tolerated by patient. PT Floor Broker Goals [facility] Goals PT Floor Broker Goals Time Frame: Jan 31, 2021 Roll Left & Right (QC): 5 Sit to Lying (QC): 5 Lying-Sitting on Side/Bed(QC): 5 Sit to Stand (QC): 5 Chair/Dub-ug-Iqtyw Xfer(QC): 5 Toilet Transfer (QC): 5 Walk 10 feet (QC): 5 Walk 50ft with 2 Turns (QC): 5 Walk 150 ft (QC): 5 PT Plan Treatment/Plan Treatment Plan: Continue Plan of Care Treatment Plan: Bed Mobility, Education, Functional Activity Altaf, Functional Strength, Gait, Safety, Therapeutic Exercise, Transfers Treatment Duration: Jan 31, 2021 Frequency: 6 times per week Estimated Hrs Per Day: .25 hour per day Patient and/or Family Agrees t: Yes Time/GCodes Time In: 1055 Time Out: 1114 Total Billed Treatment Time: 19 Total Billed Treatment 1 visit FA 19 min NAHID TORRES PT Jan 20, 2021 13:16
--- NOTE | 2021-01-20 14:02 | Occupational Ther Daily Note ---
OT Current Status-Daily Note Subjective Pt was seated in chair upon OT arrival. Pt stated she has been continuing her UE exercises at 5 reps per ex. Pt stated food gets stuck in her throat everytime she eats following a surgery that took place back in 1999. Mental Status/Objective Patient Orientation: Person, Place, Situation Attachments: IV ADL-Treatment Therapy Code Descriptions/Definitions Functional [place] Measure: 0=Not Assessed/NA 4=Minimal Assistance 1=Total Assistance 5=Supervision or Setup 2=Maximal Assistance 6=Modified [place] 3=Moderate Assistance 7=Complete IndependenceSCALE: Activities may be completed with or without assistive devices. 4-Yuhrwvrffe-xpotigb completes the activity by him/herself with no assistance from a helper. 5-Set-up or Clean-up Assistance-helper sets up or cleans up; patient completes activity. [place] assists only prior to or following the activity. 4-Supervision or Touching Assistance-helper provides verbal cues and/or touching/steadying and/or contact guard assistance as patient completes activity. Assistance may be provided throughout the activity or intermittently. 3-Partial/Moderate Assistance-helper does LESS THAN HALF the effort. [place] lifts, holds or supports trunk or limbs, but provides less than half the effort. 2-Substantial/Maximal Assistance-helper does MORE THAN HALF the effort. [place] lifts or holds trunk or limbs and provides more than half the effort. 8-Mzayqiduj-adxfqi does ALL the effort. Patient does none of the effort to complete the activity. Or, the assistance of 2 or more helpers is required for the patient to complete the activity. If activity was not attempted, code reason: 7-Patient Refused. 9-Not Applicable-not attempted and the patient did not perform the activity before the current illness, exacerbation or injury. 10-Not Attempted due to Environmental Limitations-(lack of equipment, weather restraints, etc.). 88-Not Attempted due to Medical Conditions or Safety Concerns. Eating (QC): 6 (IND with lunch) Other Treatment Pt eating lunch upon arrival, coughing with bites but pt indicates this is her baseline. Pt participated while seated in the following BUE exercies at x5 reps each, using moderate resistance theraband: shd abd, shd horizontal abduction elbow flexion, and elbow extension. Pt recalled 4/5 exercises, requiring skilled verbal cue to recall external rotation. OT educated pt to increase reps as shamika erated with exercises. Post tx session, pt was seated in chair, call light in reach, all needs met. visitor was in room. Education OT Patient Education: Correct positioning, Energy conservation, Exercise program, Home exercise program, Progress toward Goal/Update tx plan, Purpose of tx/functional activities Teaching Recipient: Patient Teaching Methods: Discussion Response to Teaching: Verbalize Understanding OT Sewing Pattern Layout Technician Goals Sewing Pattern Layout Technician Goals Time Frame: Jan 30, 2021 Eating (QC): 6 Oral Hygiene (QC): 6 Toileting Hygiene (QC): 4 Shower/Bathe Self (QC): 4 Upper Body Dressing (QC): 5 Lower Body Dressing (QC): 4 On/Off Footwear (QC): 4 Additional Goals: 1-Demonstrate ADL Tasks, 2-Verbalize Understanding, 3- ImproveStrength/Altaf 1=Demonstrate adherence to instructed precautions during ADL tasks. 2=Patient will verbalize/demonstrate understanding of assistive devices/modifications for ADL. 3=Patient will improve strength/tolerance for activity to enable patient to perform ADL's. OT Education/Plan Problem List/Assessment Assessment: Decreased Activ Tolerance, Decreased UE Strength, Impaired Coordination, Impaired Funct Balance, Impaired I ADL's, Impaired Self-Care Skills Discharge Recommendations Plan/Recommendations: Continue POC Treatment Plan/Plan of Care Patient would benefit from OT for education, treatment and training to promote independence in ADL's, mobility, safety and/or upper extremity function for ADL's. Plan of Care: ADL Retraining, Functional Mobility, UE Funct Exercise/Act Treatment Duration: Jan 30, 2021 Frequency: 5 times per week Estimated Hrs Per Day: .25 hour per day Rehab Potential: Fair Time/GCodes Start Time: 13:16 Stop Time: 13:30 Total Time Billed (hr/min): 14 Billed Treatment Time 1 Visit, EX MELINA TREJO OT Jan 20, 2021 14:02
--- NOTE | 2021-01-20 14:46 | Progress Note ---
Subjective Date Seen by a Provider: Jan 20, 2021 Time Seen by a Provider: 13:00 Subjective/Events-last exam clinically overall very slowly improving. PO intake still poor. up in chair today. Objective Exam Vital Signs Date Time Temp Pulse Resp B/P (MAP) Pulse Ox O2 Delivery O2 Flow Rate FiO2 01/20/21 08:00 36.5 101 20 126/89 (101) 94 Room Air 01/20/21 08:00 Room Air 01/20/21 00:00 35.7 93 19 126/72 (90) 94 Room Air 01/19/21 21:00 Room Air 01/19/21 16:18 36.3 100 20 115/81 (92) 97 Room Air I & O 01/20/21 07:00 Intake Total 1550 ml Output Total 1775 ml Balance -225 ml Capillary Refill : General Appearance: No Apparent Distress HEENT: PERRL/EOMI Neck: Full Range of Motion Respiratory: Decreased Breath Sounds Cardiovascular: Regular Rate, Rhythm Gastrointestinal: normal bowel sounds, soft, tenderness Extremity: Normal Capillary Refill Neurologic/Psychiatric: Alert, Oriented x3 Skin: Normal Color Lymphatic: No Adenopathy Results Lab Laboratory Tests 01/20/21 06:16: White Blood Count 13.2H, Red Blood Count 3.77L, Hemoglobin 10.5L, Hematocrit 34L , Mean Corpuscular Volume 91, Mean Corpuscular Hemoglobin 28, Mean Corpuscular Hemoglobin Concent 31L, Red Cell Distribution Width 16.2H, Platelet Count 256, Mean Platelet Volume 11.0, Immature Granulocyte % (Auto) 1, Neutrophils (%) (Auto) 84H, Lymphocytes (%) (Auto) 9L, Monocytes (%) (Auto) 6, Eosinophils (%) (Auto) 0, Basophils (%) (Auto) 0, Neutrophils # (Auto) 11.1H, Lymphocytes # (Auto) 1.2, Monocytes # (Auto) 0.7, Eosinophils # (Auto) 0.0, Basophils # (Auto) 0.0, Immature Granulocyte # (Auto) 0.1, Sodium Level 133L, Potassium Level 4.5, Chloride Level 96L, Carbon Dioxide Level 28, Anion Gap 9, Blood Urea Nitrogen 11, Creatinine 0.62, Estimat Glomerular Filtration Rate 98, BUN/Creatinine Ratio 18, Glucose Level 106H, Calcium Level 8.7, Corrected Calcium 10.1, Total Bilirubin 0.9, Aspartate Amino Transf (AST/SGOT) 32, Alanine Aminotransferase (ALT/SGPT) 17, Alkaline Phosphatase 395H, Total Protein 6.5, Albumin 2.2L, Amylase Level 16L, Lipase 18 Microbiology 01/16/21 Urine Culture - Final, Complete YEAST Enterococcus faecium 01/14/21 Blood Culture - Final, Complete No growth Assessment/Plan Assessment/Plan Assess & Plan/Chief Complaint sepsis s/p lap samy and ERCP with stent placement and bilateral atelectasis/pl effusion. cont iv abx. diet as tolerated. ARU at some point. GI for further evaluation. SILVIA ANDRADE MD Jan 20, 2021 14:46
[2021-01-20 16:45] VITALS: BP 119/59
[2021-01-20] MEDS: LORazepam INJ 2 MG/ML (ATIVAN) VIAL IVP SCH (21:47)
[2021-01-21 00:19] VITALS: BP 104/52
[2021-01-21] MEDS: KETOROLAC 30 MG/ML VIAL IVP PRN ×3 (01:41→21:29)
[2021-01-21] MEDS: 1/2 NS W/KCL 20 MEQ/L 1,000 ML IV SCH ×2 (01:49→16:10)
[2021-01-21] MEDS: fentaNYL INJ 100 MCG/2 ML AMP IVP PRN (03:44)
[2021-01-21] MEDS: MEROPENEM 1,000 MG in WATER (STERILE) FOR INJECTION 20 ML IV SCH ×3 (06:18→20:47)
[2021-01-21] MEDS: METOCLOPRAMIDE INJ 10 MG/2 ML (REGLAN) IVP SCH ×3 (06:18→20:46)
[2021-01-21 08:00] VITALS: BP 139/77
[2021-01-21] MEDS: LACTOBACILLUS ACIDOPHILUS (PROBIOTIC) CAPSULE PO SCH ×3 (08:09→18:47)
--- NOTE | 2021-01-21 08:42 | Progress Note ---
Subjective Subjective Date Seen by Provider: Jan 21, 2021 Time Seen by Provider: 08:30 BRIANA STATES THAT SHE IS FEELING A LITTLE BIT BETTER TODAY - SHE COMPLAINS OF GAS, ATE BETTER YESTERDAY - HAD 1/2 A SUBWAY SANDWICH YESTERDAY EVENING SHE DENIES CHEST PAIN, NAUSEA BETTER, NO DIZZINESS, CHEST PAIN. SHE DENIES PAIN EXCEPT FOR IN HER BUTTOCK. PHYSICAL THERAPY HAS BEEN DOCUMENTING IMPROVEMENT IN HER FUNCTION -SHE WAS ADMITTED WITH ONLY BEING ABLE TO DO 0.25 HOURS - NOW HAS BEEN ABLE TO DO OVER AN HOUR OF THERAPY A DAY - WHICH SHOULD BE ABLE TO BE INCREASED WHEN SHE IS DOWN ON A REHAB UNIT. Review of Systems General: No Night Sweats; Fatigue, Malaise, Appetite (DECREASED) HEENT: No Head Aches, No Dysphasia Pulmonary: No Dyspnea, No Cough Cardiovascular: Edema (LOWER LEGS); No: Chest Pain, Palpitations Gastrointestinal: Abdominal Pain, Other; No: Nausea, Vomiting, Constipation Genitourinary: No Dysuria, No Incontinence Musculoskeletal: other (PAIN IN BUTTOCKS) Neurological: Weakness; No: Confusion All Other Systems Reviewed All Other Systems Reviewed: Yes Objective Exam Vital Signs Vital Signs Date Time Temp Pulse Resp B/P (MAP) Pulse Ox O2 Delivery O2 Flow Rate FiO2 01/21/21 08:00 35.9 92 20 139/77 (97) 97 Room Air 01/21/21 07:58 Room Air 01/21/21 00:19 36.2 95 20 104/52 (69) 95 Room Air 01/20/21 20:55 Room Air 01/20/21 16:45 35.6 88 20 119/59 (79) 94 Room Air I & O 01/21/21 07:00 Intake Total 2810 ml Output Total 1325 ml Balance 1485 ml General Appearance: No Apparent Distress, WD/WN Eyes: Bilateral Eye Normal Inspection, Bilateral Eye PERRL, Bilateral Eye EOMI HEENT: PERRL/EOMI Neck: Normal Inspection, Supple Respiratory: No Accessory Muscle Use, No Respiratory Distress Cardiovascular: Regular Rate, Rhythm, No Edema Gastrointestinal: Soft, Abnormal Bowel Sounds, Tenderness (ruq/EPIGASTRIUM), Other (TYMPANITIC) Rectal: Deferred Extremity: Normal Range of Motion, Swelling (approx 1-2+) Neurologic/Psychiatric: Alert, Oriented x3, Depressed Affect Skin: Normal Color, Warm/Dry Lymphatic: No Adenopathy Results Lab Microbiology 01/16/21 Urine Culture - Final, Complete YEAST Enterococcus faecium 01/14/21 Blood Culture - Final, Complete No growth Assessment/Plan Assessment/Plan Admission Dx ACUTE INJURY HEPATITIS ELEVATED ALKALINE PHOSPHATASE LEUKOCYTOSIS HYPERBILIRUBINEMIA WEIGHT LOSS MALAISE ANOREXIA NAUSEA EMESIS WEAKNESS AND FALLING EPISODES DIET CONTROLLED DIABETES MELLITUS ANEMIA HYPOKALEMIA Assessment and Plan ACUTE INJURY HEPATITIS ELEVATED ALKALINE PHOSPHATASE LEUKOCYTOSIS URINARY TRACT INFECTION, SEPSIS HYPERBILIRUBINEMIA WEIGHT LOSS MALAISE ANOREXIA NAUSEA EMESIS WEAKNESS AND FALLING EPISODES DIET CONTROLLED DIABETES MELLITUS ANEMIA HYPOKALEMIA ACUTE INJURY HEPATITIS WITH PERSISTENTLY ELEVATED ALKALINE PHOSPHATASE, LEUKOCYTOSIS AND HYPERBILIRUBINEMIA - DISCUSSED CASE WITH DR. ANDRADE - CASE DISCUSSED WITH DR. SANTIAGO - HE IS WONDERING ABOUT [facility] -- HE REQUESTED IMAGING TO BE CLOUDED SO HE COULD REVIEW HER CASE, MAKE RECOMMENDATIONS AND HE HAS INDICATED HE WILL CALL NEXT WEEK WHEN BRIANA IS ON INPT REHAB FOR HER TO BE SEEN IN HIS OFFICE. HE DID NOT MAKE ANY FURTHER RECOMMENDATIONS UNTIL HE HAS REVIEWED HER PERTINENT IMAGING STUDIES. - APPRECIATE HIS INPUT WEIGHT LOSS DUE TO ANOREXIA AND NAUSEA/EMESIS - - DIETARY CONSULT - STARTED REGLAN AT 5MG IV TID - ADDED SCOPOLAMINE PATCH - IMPROVED NAUSEA - PRN ZOFRAN UTI WITH ENTEROCOCCUS, SEPSIS WITH ECOLI - PT ON MEROPENEM - MONITOR FURTHER CULTURE RESULTS - YEAST ON URINE - PT TO CONTINUE WITH DIFLUCAN FOR A FEW MORE DAYS - WILL HAVE TO CLOSELY MONITOR LIVER PANEL - ADDED DOXYCYCLINE PO WELL FOR 5 DAYS MALAISE, WEAKNESS AND FALLING EPISODES - CONSULT TO PHYSICAL AND OCCUPATIONAL THERAPY WELL INPT REHAB EVAL. PHYSICAL THERAPY HAS BEEN DOCUMENTING IMPROVEMENT IN HER FUNCTION -SHE WAS ADMITTED WITH ONLY BEING ABLE TO DO 0.25 HOURS - NOW HAS BEEN ABLE TO DO OVER AN HOUR OF THERAPY A DAY - WHICH SHOULD BE ABLE TO BE INCREASED WHEN SHE IS DOWN ON A REHAB UNIT. HER INSURANCE DENIED THE INPT REHAB BECAUSE THEY WERE LOOKING AT HER ADMISSION EVAL - WHICH WAS - EXPECTED LOW - HOWEVER WITH IMPROVED NAUSEA, BRIANA HAS BEEN ABLE TO BE MORE ACTIVE AND PARTICIPATING BETTER AND HAS MORE STAMINA TO BE A PART OF THE REHAB - I BELIEVE THAT HER INSURANCE COMPANY IS INCORRECT IN THEIR EVALUATION AND THAT - THE PERSON PHYSICALLY EVALUATING HER - SHE SHOULD BE A PART OF THE INPATIENT REHAB SHE WILL BENEFIT THE MOST FROM THIS SERVICE LINE. DIET CONTROLLED DIABETES MELLITUS - AGAIN -CONSULT DIETARY, MONITOR FSBS ONCE TAKING IN MORE PO ANEMIA - REPEAT LABS HYPOKALEMIA - REPLENISH WITH IV POTASSIUM ABDOMINAL PAIN AND BACK PAIN - STOPPED HYDROCODONE THAT MAY BE CONTRIBUTING TO HER CYCLICAL VOMITING - USE TORADOL FOR PAIN DC CABALLERO DVT PROPHYLAXIS WITH SCD'S AND LOVENOX GI PROPHYLAXIS WITH PROBIOTICS AND PROTONIX. Admission Dx ACUTE INJURY HEPATITIS ELEVATED ALKALINE PHOSPHATASE LEUKOCYTOSIS HYPERBILIRUBINEMIA WEIGHT LOSS MALAISE ANOREXIA NAUSEA EMESIS WEAKNESS AND FALLING EPISODES DIET CONTROLLED DIABETES MELLITUS ANEMIA HYPOKALEMIA Clinical Quality Measures Admission Status Admission Dx ACUTE INJURY HEPATITIS ELEVATED ALKALINE PHOSPHATASE LEUKOCYTOSIS HYPERBILIRUBINEMIA WEIGHT LOSS MALAISE ANOREXIA NAUSEA EMESIS WEAKNESS AND FALLING EPISODES DIET CONTROLLED DIABETES MELLITUS ANEMIA HYPOKALEMIA DOREEN LI MD Jan 21, 2021 08:41
--- NOTE | 2021-01-21 09:26 | Physical Therapy Daily Note ---
PT Daily Note-Current Subjective Pt in bed upon arrival and agrees to tx. Pt states pain 4/10 in lower back and bottom. Pt states she is having difficulties waking up today. Pain Numeric Pain Scale: 4 Location: Lower Location Body Site: Back Mental Status Patient Orientation: Person, Place, Situation Transfers SCALE: Activities may be completed with or without assistive devices. 3-Etgcnttqzn-cihkfin completes the activity by him/herself with no assistance from a helper. 5-Set-up or Clean-up Assistance-helper sets up or cleans up; patient completes activity. [place] assists only prior to or following the activity. 4-Supervision or Touching Assistance-helper provides verbal cues and/or touching/steadying and/or contact guard assistance as patient completes activity. Assistance may be provided throughout the activity or intermittently. 3-Partial/Moderate Assistance-helper does LESS THAN HALF the effort. [place] lifts, holds or supports trunk or limbs, but provides less than half the effort. 2-Substantial/Maximal Assistance-helper does MORE THAN HALF the effort. [place] lifts or holds trunk or limbs and provides more than half the effort. 2-Xalorladu-zuyryy does ALL the effort. Patient does none of the effort to complete the activity. Or, the assistance of 2 or more helpers is required for the patient to complete the activity. If activity was not attempted, code reason: 7-Patient Refused. 9-Not Applicable-not attempted and the patient did not perform the activity before the current illness, exacerbation or injury. 10-Not Attempted due to Environmental Limitations-(lack of equipment, weather restraints, etc.). 88-Not Attempted due to Medical Conditions or Safety Concerns. Lying to Sitting/Side of Bed(Q: 3 Sit to Stand (QC): 4 Pt supine to sit, requires VC and TC for placement and sequencing. Pt able to bring R LE to EOB but unable to completely advance L LE to EOB. Pt required ModA for LE placement as well as bringing torso upright to sit EOB. Weight Bearing Right Lower Extremity: Right Weight Bearing/Tolerated Left Lower Extremity: Left Weight Bearing/Tolerated Gait Training Does the Patient Walk?: Yes Distance: 20' Walk 10 feet (QC): 4 Gait Assistive Device: FWW Pt amb in room to BR and to recliner. Pt has slow, shuffling gait w/ wide MIYA. Pt states she is too tired to do much more walking today. Treatments Pt completes bed mobility, once EOB pt states she is feeling dizzy and that she does anytime she sits up from supine. Pt sits EOB until dizziness subsides. Pt sit to stand and amb to BR CGA. Pt request to sit in recliner post BR. Pt requires A for wiping, as well as CGA while washing hands. Pt amb to recliner and requires A for bringing up leg rest, as well as scooting back into chair. Pt remains in recliner w/ all needs met and call light in hand. Post tx, enters pt room. Assessment Current Status: Fair Progress Pt limited by weakness and fatigue. Pt would benefit from extended tx times PT Contract Technical Writer Goals Contract Technical Writer Goals PT Contract Technical Writer Goals Time Frame: Jan 31, 2021 Roll Left & Right (QC): 5 Sit to Lying (QC): 5 Lying-Sitting on Side/Bed(QC): 5 Sit to Stand (QC): 5 Chair/Djr-xe-Sythl Xfer(QC): 5 Toilet Transfer (QC): 5 Walk 10 feet (QC): 5 Walk 50ft with 2 Turns (QC): 5 Walk 150 ft (QC): 5 PT Plan Treatment/Plan Treatment Plan: Continue Plan of Care Treatment Plan: Bed Mobility, Education, Functional Activity Altaf, Functional Strength, Gait, Safety, Therapeutic Exercise, Transfers Treatment Duration: Jan 31, 2021 Frequency: 6 times per week Estimated Hrs Per Day: .25 hour per day Patient and/or Family Agrees t: Yes Time/GCodes Time In: 835 Time Out: 903 Total Billed Treatment Time: 28 Total Billed Treatment 1, FA x2 KALLIE GRAYSON CENTRAL PROCESSING TECH Jan 21, 2021 09:26
[2021-01-21] MEDS: DOXYCYCLINE 100 MG (VIBRAMYCIN) TABLET PO SCH ×2 (10:57→16:10)
[2021-01-21] MEDS: fluCOnazole (DIFLUCAN) 100 MG TAB PO SCH (10:57)
[2021-01-21] MEDS: KCL 20 MEQ TAB (K-DUR) PO SCH ×2 (10:57→20:47)
[2021-01-21] MEDS: DOCUSATE SODIUM 100 MG (COLACE) CAP PO SCH (10:57)
[2021-01-21] MEDS: ENOXAPARIN 40 MG/0.4 ML (LOVENOX) SYR SC SCH ×2 (10:58→20:47)
--- NOTE | 2021-01-21 13:42 | Progress Note ---
Subjective Date Seen by a Provider: Jan 21, 2021 Time Seen by a Provider: 13:30 Subjective/Events-last exam doing ok. so far denied ARU however repeal. doing ok otherwise. still very weak. Objective Exam Vital Signs Date Time Temp Pulse Resp B/P (MAP) Pulse Ox O2 Delivery O2 Flow Rate FiO2 01/21/21 08:00 35.9 92 20 139/77 (97) 97 Room Air 01/21/21 07:58 Room Air 01/21/21 00:19 36.2 95 20 104/52 (69) 95 Room Air 01/20/21 20:55 Room Air 01/20/21 16:45 35.6 88 20 119/59 (79) 94 Room Air I & O 01/21/21 07:00 Intake Total 2810 ml Output Total 1325 ml Balance 1485 ml Capillary Refill : General Appearance: No Apparent Distress HEENT: PERRL/EOMI Neck: Full Range of Motion Respiratory: Chest Non Tender, Decreased Breath Sounds Cardiovascular: Regular Rate, Rhythm Gastrointestinal: normal bowel sounds, soft Extremity: Normal Capillary Refill Neurologic/Psychiatric: Alert, Oriented x3 Skin: Normal Color Lymphatic: No Adenopathy Results Lab Microbiology 01/16/21 Urine Culture - Final, Complete YEAST Enterococcus faecium 01/14/21 Blood Culture - Final, Complete No growth Assessment/Plan Assessment/Plan Assess & Plan/Chief Complaint sepsis s/p lap samy and ERCP with stent placement and bilateral atelectasis/pl effusion. cont iv abx. diet as tolerated. ARU at some point. GI for further evaluation. SILVIA ANDRADE MD Jan 21, 2021 13:42
--- NOTE | 2021-01-21 13:54 | Occ Therapy Progress Note ---
Therapy Progress Note Attempted 2x's to work with pt. Nrsg attempting to place pt's IV at each OT attempt. Will work with pt at first available time. MARIELA DA SILVA Jan 21, 2021 13:54
[2021-01-21] MEDS: PANTOPRAZOLE 40 MG (PROTONIX) VIAL IV SCH (14:56)
[2021-01-21 15:47] VITALS: BP 114/71
--- NOTE | 2021-01-21 19:07 | Diagnostic Imaging Report ---
INDICATION: Central line placement. COMPARISON: None. FINDINGS: Single view of the chest demonstrates a left subclavian central venous catheter. The tip is in the SVC. There is no pneumothorax or effusion. IMPRESSION: No post-procedure pneumothorax. Dictated by: Dictated on workstation # [id number]
[2021-01-21] MEDS: LORazepam INJ 2 MG/ML (ATIVAN) VIAL IVP SCH (20:46)
[2021-01-22] VITALS: BP 126/58
--- NOTE | 2021-01-22 02:28 | OPERATIVE REPORT ---
DATE OF SERVICE: 01/21/2021 ATTENDING PRIMARY CARE PHYSICIAN: Dr. Divya Garcia. PREOPERATIVE DIAGNOSIS: Sepsis. POSTOPERATIVE DIAGNOSIS: Sepsis. PROCEDURE: Placement of left subclavian central venous catheter. SURGEON: Silvia Andrade MD ANESTHESIA: Local. ESTIMATED BLOOD LOSS: Minimal. DISPOSITION: The patient tolerated the procedure well. INDICATIONS: The patient is a 60-year-old female known to us. She developed right upper abdominal quadrant pain and nausea and vomiting as well as diarrhea and she was found to have cholecystitis. She was admitted, placed on IV antibiotics and underwent a laparoscopic cholecystectomy, was found to have a severely inflamed gallbladder and multiple stones. She did well postoperatively; however, was found to have elevation of liver function enzymes, which continued to increase and she was referred to gastroenterology where an ERCP was performed, which showed multiple retained stones in the common duct and underwent a papillotomy and stents placed in both the common and pancreatic duct. Since that time, she has had ongoing issues with weakness, fatigue, loss of appetite and nausea. This is her second admission since her ERCP. She was found to have E. coli in her blood stream. She is currently on IV antibiotics. She has very poor peripheral venous circulation and will require a central venous catheter. DESCRIPTION OF PROCEDURE: The chest and neck were prepped and draped in standard surgical fashion. The left subclavian region was then anesthetized with 1% lidocaine. Left subclavian vein was then cannulated with drawing of venous blood. The guidewire was then inserted without any resistance. Cannulating needle removed and a skin incision made using 11-blade. A tract was then created using a venous dilator and through this opening, a triple lumen central venous catheter was placed over the guidewire using the Seldinger technique. Guidewire was removed and all three ports sherice venous blood and saline pushed in without any resistance. Catheter was then sutured to the skin using interrupted 3-0 silk interrupted sutures. The catheter was then cleaned and covered with Op-Site. The patient tolerated the procedure well. We will get a post-procedure chest x-ray. Job ID: [id number] DocumentID: [id number] Dictated Date: 01/21/2021 18:36:13 Flower Shop Manager Date: 01/22/2021 02:27:51 Dictated By: SILVIA ANDRADE MD [facility]
[2021-01-22] MEDS: fentaNYL INJ 100 MCG/2 ML AMP IVP PRN ×3 (02:34→23:50)
[2021-01-22 05:32] LABS: HEMATOCRIT 30 % (35-52); HEMOGLOBIN 9.4 g/dL (11.5-16.0); MEAN CORPUSCULAR HEMOGLOBIN 28 pg (25-34); MEAN CORPUSCULAR HGB CONC 31 g/dL (32-36); MEAN CORPUSCULAR VOLUME 90 fL (80-99); MEAN PLATELET VOLUME 10.9 fL (9.0-12.2); PLATELET COUNT 315 10^3/uL (130-400); WHITE BLOOD COUNT 10.4 10^3/uL (4.3-11.0)
[2021-01-22] MEDS: 1/2 NS W/KCL 20 MEQ/L 1,000 ML IV SCH (05:36)
[2021-01-22] MEDS: KETOROLAC 30 MG/ML VIAL IVP PRN ×3 (05:44→21:33)
[2021-01-22] MEDS: METOCLOPRAMIDE INJ 10 MG/2 ML (REGLAN) IVP SCH ×3 (05:44→21:36)
[2021-01-22] MEDS: MEROPENEM 1,000 MG in WATER (STERILE) FOR INJECTION 20 ML IV SCH ×3 (05:44→21:34)
[2021-01-22] MEDS: DOXYCYCLINE 100 MG (VIBRAMYCIN) TABLET PO SCH ×2 (05:45→17:45)
[2021-01-22 05:51] LABS: ALBUMIN 2.1 GM/DL (3.2-4.5); POTASSIUM 4.6 MMOL/L (3.6-5.0)
[2021-01-22 05:52] LABS: CALCIUM 8.5 MG/DL (8.5-10.1)
[2021-01-22 05:54] LABS: TOTAL PROTEIN 6.3 GM/DL (6.4-8.2)
[2021-01-22 05:55] LABS: BILIRUBIN,TOTAL 0.8 MG/DL (0.1-1.0)
[2021-01-22 05:57] LABS: CREATININE SERUM 0.58 MG/DL (0.60-1.30)
--- NOTE | 2021-01-22 07:59 | Progress Note ---
Subjective Subjective Date Seen by Provider: Jan 22, 2021 Time Seen by Provider: 08:10 BRIANA STATES THAT SHE IS FEELING FATIGUED THIS MORNING - HAS BEEN UP MOVING AROUND IN HER ROOM. SHE CONTINUES TO COMPLAIN OF GAS PAIN AND SHE DENIES OTHER PAIN EXCEPT FOR IN HER BUTTOCK. SHE DENIES CHEST PAIN, NAUSEA BETTER, NO DIZZINESS, CHEST PAIN. Review of Systems General: No Night Sweats; Fatigue, Malaise, Appetite (DECREASED) HEENT: No Head Aches, No Dysphasia Pulmonary: No Dyspnea, No Cough Cardiovascular: Edema (LOWER LEGS); No: Chest Pain, Palpitations Gastrointestinal: Abdominal Pain, Other; No: Nausea, Vomiting, Constipation Genitourinary: No Dysuria, No Incontinence Musculoskeletal: other (PAIN IN BUTTOCKS) Neurological: Weakness; No: Confusion All Other Systems Reviewed All Other Systems Reviewed: Yes Objective Exam Vital Signs Vital Signs Date Time Temp Pulse Resp B/P (MAP) Pulse Ox O2 Delivery O2 Flow Rate FiO2 01/22/21 03:05 36.4 01/22/21 00:00 36.4 95 20 126/58 (80) 94 Room Air 01/21/21 20:00 Room Air 01/21/21 15:47 36.6 94 20 114/71 (85) 96 Room Air 01/21/21 08:00 35.9 92 20 139/77 (97) 97 Room Air I & O 01/22/21 06:59 Intake Total 600 ml Output Total 350 ml Balance 250 ml General Appearance: No Apparent Distress, WD/WN Eyes: Bilateral Eye Normal Inspection, Bilateral Eye PERRL, Bilateral Eye EOMI HEENT: PERRL/EOMI Neck: Full Range of Motion Respiratory: Chest Non Tender, Lungs Clear, Normal Breath Sounds Cardiovascular: Regular Rate, Rhythm Gastrointestinal: Normal Bowel Sounds, Soft, Tenderness (ruq/EPIGASTRIUM), Other (TYMPANITIC) Rectal: Deferred Extremity: Normal Capillary Refill Neurologic/Psychiatric: Alert, Oriented x3 Skin: Normal Color Lymphatic: No Adenopathy Results Lab Laboratory Tests 01/22/21 05:30: White Blood Count 10.4, Red Blood Count 3.34L, Hemoglobin 9.4L, Hematocrit 30L, Mean Corpuscular Volume 90, Mean Corpuscular Hemoglobin 28, Mean Corpuscular Hemoglobin Concent 31L, Red Cell Distribution Width 16.5H, Platelet Count 315, Mean Platelet Volume 10.9, Sodium Level 134L, Potassium Level 4.6, Chloride Level 98, Carbon Dioxide Level 25, Anion Gap 11, Blood Urea Nitrogen 13, Creatinine 0.58L, Estimat Glomerular Filtration Rate 105, BUN/Creatinine Ratio 22, Glucose Level 104, Calcium Level 8.5, Corrected Calcium 10.0, Total Bilirubin 0.8, Aspartate Amino Transf (AST/SGOT) 39H, Alanine Aminotransferase (ALT/SGPT) 18, Alkaline Phosphatase 507H, Total Protein 6.3L, Albumin 2.1L Microbiology 01/16/21 Urine Culture - Final, Complete YEAST Enterococcus faecium 01/14/21 Blood Culture - Final, Complete No growth Assessment/Plan Assessment/Plan Admission Dx ACUTE INJURY HEPATITIS ELEVATED ALKALINE PHOSPHATASE LEUKOCYTOSIS HYPERBILIRUBINEMIA WEIGHT LOSS MALAISE ANOREXIA NAUSEA EMESIS WEAKNESS AND FALLING EPISODES DIET CONTROLLED DIABETES MELLITUS ANEMIA HYPOKALEMIA Assessment and Plan ACUTE INJURY HEPATITIS ELEVATED ALKALINE PHOSPHATASE LEUKOCYTOSIS URINARY TRACT INFECTION, SEPSIS HYPERBILIRUBINEMIA WEIGHT LOSS MALAISE ANOREXIA NAUSEA EMESIS WEAKNESS AND FALLING EPISODES DIET CONTROLLED DIABETES MELLITUS ANEMIA HYPOKALEMIA ACUTE INJURY HEPATITIS WITH PERSISTENTLY ELEVATED ALKALINE PHOSPHATASE, LEUKOCYTOSIS AND HYPERBILIRUBINEMIA - DISCUSSED CASE WITH DR. ANDRADE - CASE DISCUSSED WITH DR. SANTIAGO - HE IS WONDERING ABOUT [facility] -- HE REQUESTED IMAGING TO BE CLOUDED SO HE COULD REVIEW HER CASE, MAKE RECOMMENDATIONS AND HE HAS INDICATED HE WILL CALL NEXT WEEK WHEN BRIANA IS ON INPT REHAB FOR HER TO BE SEEN IN HIS OFFICE. HE DID NOT MAKE ANY FURTHER RECOMMENDATIONS UNTIL HE HAS REVIEWED HER PERTINENT IMAGING STUDIES. - APPRECIATE HIS INPUT WEIGHT LOSS DUE TO ANOREXIA AND NAUSEA/EMESIS - - DIETARY CONSULT - STARTED REGLAN AT 5MG IV TID - ADDED SCOPOLAMINE PATCH - IMPROVED NAUSEA - PRN ZOFRAN UTI WITH ENTEROCOCCUS, SEPSIS WITH ECOLI - PT ON MEROPENEM - MONITOR FURTHER CULTURE RESULTS - YEAST ON URINE - PT TO CONTINUE WITH DIFLUCAN FOR A FEW MORE DAYS - WILL HAVE TO CLOSELY MONITOR LIVER PANEL - ADDED DOXYCYCLINE PO - PT CLOSE TO END OF TREATMENT MALAISE, WEAKNESS AND FALLING EPISODES - CONSULT TO PHYSICAL AND OCCUPATIONAL THERAPY WELL INPT REHAB EVAL. PHYSICAL THERAPY HAS BEEN DOCUMENTING IMPROVEMENT IN HER FUNCTION -SHE WAS ADMITTED WITH ONLY BEING ABLE TO DO 0.25 HOURS - NOW HAS BEEN ABLE TO DO OVER AN HOUR OF THERAPY A DAY - WHICH SHOULD BE ABLE TO BE INCREASED WHEN SHE IS DOWN ON A REHAB UNIT. HER INSURANCE DENIED THE INPT REHAB BECAUSE THEY WERE LOOKING AT HER ADMISSION EVAL - WHICH WAS - EXPECTED LOW - HOWEVER WITH IMPROVED NAUSEA, BRIANA HAS BEEN ABLE TO BE MORE ACTIVE AND PARTICIPATING BETTER AND HAS MORE STAMINA TO BE A PART OF THE REHAB - I BELIEVE THAT HER INSURANCE COMPANY IS INCORRECT IN THEIR EVALUATION AND THAT - THE PERSON PHYSICALLY EVALUATING HER - SHE SHOULD BE A PART OF THE INPATIENT REHAB SHE WILL BENEFIT THE MOST FROM THIS SERVICE LINE. WE ARE WAITING ON THE APPEAL TO HER INSURANCE COMPANY. DIET CONTROLLED DIABETES MELLITUS - AGAIN -CONSULT DIETARY, MONITOR FSBS ONCE TAKING IN MORE PO ANEMIA - REPEAT LABS - IF LOWER TOMORROW, CONSIDER BLOOD VERSUS IV IRON. HYPOKALEMIA - REPLENISH WITH IV POTASSIUM ABDOMINAL PAIN AND BACK PAIN - STOPPED HYDROCODONE THAT MAY BE CONTRIBUTING TO HER CYCLICAL VOMITING - USE TORADOL FOR PAIN DC CABALLERO DVT PROPHYLAXIS WITH SCD'S AND LOVENOX GI PROPHYLAXIS WITH PROBIOTICS AND PROTONIX. Admission Dx ACUTE INJURY HEPATITIS ELEVATED ALKALINE PHOSPHATASE LEUKOCYTOSIS HYPERBILIRUBINEMIA WEIGHT LOSS MALAISE ANOREXIA NAUSEA EMESIS WEAKNESS AND FALLING EPISODES DIET CONTROLLED DIABETES MELLITUS ANEMIA HYPOKALEMIA Clinical Quality Measures Admission Status Admission Dx ACUTE INJURY HEPATITIS ELEVATED ALKALINE PHOSPHATASE LEUKOCYTOSIS HYPERBILIRUBINEMIA WEIGHT LOSS MALAISE ANOREXIA NAUSEA EMESIS WEAKNESS AND FALLING EPISODES DIET CONTROLLED DIABETES MELLITUS ANEMIA HYPOKALEMIA DOREEN LI MD Jan 22, 2021 07:59
[2021-01-22] MEDS: LACTOBACILLUS ACIDOPHILUS (PROBIOTIC) CAPSULE PO SCH ×3 (08:07→17:42)
[2021-01-22 08:26] VITALS: BP 110/63
[2021-01-22] MEDS: DOCUSATE SODIUM 100 MG (COLACE) CAP PO SCH (09:13)
[2021-01-22] MEDS: ENOXAPARIN 40 MG/0.4 ML (LOVENOX) SYR SC SCH ×2 (09:13→21:33)
[2021-01-22] MEDS: fluCOnazole (DIFLUCAN) 100 MG TAB PO SCH (09:14)
[2021-01-22] MEDS: PANTOPRAZOLE 40 MG (PROTONIX) VIAL IV SCH (09:14)
[2021-01-22] MEDS: KCL 20 MEQ TAB (K-DUR) PO SCH ×2 (09:19→21:35)
[2021-01-22] MEDS: NS W/KCL 20 MEQ/L 1,000 ML IV SCH ×2 (09:19→22:20)
[2021-01-22] MEDS ORDERED: METOCLOPRAMIDE INJ 10 MG/2 ML (REGLAN) IVP ONE (09:30)
[2021-01-22] MEDS ORDERED: ALBUMIN 25% 25 GM/100 ML 100 ML IV ONE (09:30)
--- NOTE | 2021-01-22 10:16 | Physical Therapy Daily Note ---
PT Daily Note-Current Subjective Patient agrees to PT. Voices frustration with insurance and inability to transfer to ARU. She did report appeal process has been activated. Mental Status Patient Orientation: Normal For Age Transfers SCALE: Activities may be completed with or without assistive devices. 0-Msfncqkucu-gupldiy completes the activity by him/herself with no assistance from a helper. 5-Set-up or Clean-up Assistance-helper sets up or cleans up; patient completes activity. [place] assists only prior to or following the activity. 4-Supervision or Touching Assistance-helper provides verbal cues and/or touching/steadying and/or contact guard assistance as patient completes activity. Assistance may be provided throughout the activity or intermittently. 3-Partial/Moderate Assistance-helper does LESS THAN HALF the effort. [place] lifts, holds or supports trunk or limbs, but provides less than half the effort. 2-Substantial/Maximal Assistance-helper does MORE THAN HALF the effort. [place] lifts or holds trunk or limbs and provides more than half the effort. 9-Lvpvntnfs-qvqbhn does ALL the effort. Patient does none of the effort to complete the activity. Or, the assistance of 2 or more helpers is required for the patient to complete the activity. If activity was not attempted, code reason: 7-Patient Refused. 9-Not Applicable-not attempted and the patient did not perform the activity before the current illness, exacerbation or injury. 10-Not Attempted due to Environmental Limitations-(lack of equipment, weather restraints, etc.). 88-Not Attempted due to Medical Conditions or Safety Concerns. Sit to Stand (QC): 2 (from low surface) Weight Bearing Right Lower Extremity: Right Weight Bearing/Tolerated Left Lower Extremity: Left Weight Bearing/Tolerated Gait Training Distance: 125' Walk 10 feet (QC): 3 Walk 50 ft with 2 Turns(QC): 3 Walk 150 ft (QC): 88 Gait Assistive Device: FWW 3 standing recovery periods with slow, steady gait sequence and VC's for body placement in FWW Exercises Seated Therapy Exercises: Ankle pumps, Long arc quads, Hip flexion Seated Reps: 15 (2 sets) Assessment Noted elevated HR with activity (131). Physician is aware. PT to continue to increase activity as tolerated by patient. PT Care Home Goals Pallet Stone Positioner Goals PT Care Home Goals Time Frame: Jan 31, 2021 Roll Left & Right (QC): 5 Sit to Lying (QC): 5 Lying-Sitting on Side/Bed(QC): 5 Sit to Stand (QC): 5 Chair/Ynk-tu-Swlti Xfer(QC): 5 Toilet Transfer (QC): 5 Walk 10 feet (QC): 5 Walk 50ft with 2 Turns (QC): 5 Walk 150 ft (QC): 5 PT Plan Treatment/Plan Treatment Plan: Continue Plan of Care Treatment Plan: Bed Mobility, Education, Functional Activity Altaf, Functional Strength, Gait, Safety, Therapeutic Exercise, Transfers Treatment Duration: Jan 31, 2021 Frequency: 6 times per week Estimated Hrs Per Day: .25 hour per day Patient and/or Family Agrees t: Yes Time/GCodes Time In: 841 Time Out: 904 Total Billed Treatment Time: 23 Total Billed Treatment 1 visit GT 15 min EX 8 min NAHID TORRES PT Jan 22, 2021 10:16
[2021-01-22] MEDS: SIMETHICONE 80 MG (MYLICON) CHEW PO SCH ×4 (12:40→21:33)
--- NOTE | 2021-01-22 13:07 | Occupational Ther Daily Note ---
OT Current Status-Daily Note Subjective Pt. dozing in bed upon arrival. Pt. easy to wake, agrees to therapy. Mental Status/Objective Patient Orientation: Person, Place, Time, Situation ADL-Treatment Pt. states too fatigued to perform hair grooming task, or anything that required getting up, did state wanting to do oral care. Pt. able to perform activity by self once set up in bed and supplies on table lap tray. Pt. wiped face down with warm, wet, rag. Pt. lying in bed. Call light/phone in reach. All needs met in room. Therapy Code Descriptions/Definitions Functional [place] Measure: 0=Not Assessed/NA 4=Minimal Assistance 1=Total Assistance 5=Supervision or Setup 2=Maximal Assistance 6=Modified [place] 3=Moderate Assistance 7=Complete IndependenceSCALE: Activities may be completed with or without assistive devices. 8-Bsowuofxsv-dwuquup completes the activity by him/herself with no assistance from a helper. 5-Set-up or Clean-up Assistance-helper sets up or cleans up; patient completes activity. [place] assists only prior to or following the activity. 4-Supervision or Touching Assistance-helper provides verbal cues and/or touching/steadying and/or contact guard assistance as patient completes activity. Assistance may be provided throughout the activity or intermittently. 3-Partial/Moderate Assistance-helper does LESS THAN HALF the effort. [place] lifts, holds or supports trunk or limbs, but provides less than half the effort. 2-Substantial/Maximal Assistance-helper does MORE THAN HALF the effort. [place] lifts or holds trunk or limbs and provides more than half the effort. 0-Bftnchram-wdggwp does ALL the effort. Patient does none of the effort to complete the activity. Or, the assistance of 2 or more helpers is required for the patient to complete the activity. If activity was not attempted, code reason: 7-Patient Refused. 9-Not Applicable-not attempted and the patient did not perform the activity before the current illness, exacerbation or injury. 10-Not Attempted due to Environmental Limitations-(lack of equipment, weather restraints, etc.). 88-Not Attempted due to Medical Conditions or Safety Concerns. Oral Hygiene (QC): 5 OT Jail Goals Residential Roofer Helper Goals Time Frame: Jan 30, 2021 Eating (QC): 6 Oral Hygiene (QC): 6 Toileting Hygiene (QC): 4 Shower/Bathe Self (QC): 4 Upper Body Dressing (QC): 5 Lower Body Dressing (QC): 4 On/Off Footwear (QC): 4 Additional Goals: 1-Demonstrate ADL Tasks, 2-Verbalize Understanding, 3- ImproveStrength/Altaf 1=Demonstrate adherence to instructed precautions during ADL tasks. 2=Patient will verbalize/demonstrate understanding of assistive devices/modifications for ADL. 3=Patient will improve strength/tolerance for activity to enable patient to perform ADL's. OT Education/Plan Problem List/Assessment Assessment: Decreased Activ Tolerance, Impaired Self-Care Skills Discharge Recommendations Plan/Recommendations: Continue POC Treatment Plan/Plan of Care Patient would benefit from OT for education, treatment and training to promote independence in ADL's, mobility, safety and/or upper extremity function for ADL's. Plan of Care: ADL Retraining, Functional Mobility, UE Funct Exercise/Act Treatment Duration: Jan 30, 2021 Frequency: 5 times per week Estimated Hrs Per Day: .25 hour per day Rehab Potential: Fair Time/GCodes Start Time: 11:28 Stop Time: 11:40 Total Time Billed (hr/min): 12 Billed Treatment Time 1 visit- ADL 1 (12 min) MARIELA DA SILVA Jan 22, 2021 13:07
[2021-01-22] MEDS: ALBUMIN 25% 25 GM/100 ML 100 ML IV SCH ×2 (14:53→21:32)
[2021-01-22 16:00] VITALS: BP 137/82
--- NOTE | 2021-01-22 18:21 | Diagnostic Imaging Report ---
Indication: Fever Comparison: 01/21/2021 Findings: Single view of the chest demonstrates new infiltrate in the right base. There is atelectasis in the left base. The heart is slightly enlarged. There is no pneumothorax or large effusion. PICC line is in good position. Impression: New infiltrate right base. Dictated by: Dictated on workstation # [id number]
[2021-01-22] MEDS ORDERED: ACETAMINOPHEN 500 MG TAB (TYLENOL) PO NR (18:30)
[2021-01-22] MEDS: NS IV 500 ML 500 ML IV SCH ×2 (18:38→21:00)
[2021-01-22] MEDS: LORazepam INJ 2 MG/ML (ATIVAN) VIAL IVP SCH (21:32)
[2021-01-23] VITALS: BP 128/77
[2021-01-23] MEDS: fentaNYL INJ 100 MCG/2 ML AMP IVP PRN ×2 (02:43→06:45)
[2021-01-23 02:47] LABS: CLARITY,URINE SL CLOUDY; COLOR,URINE ORANGE; GLUCOSE, URINE (UA) NEGATIVE (NEGATIVE); KETONES,URINE TRACE (NEGATIVE); LEUKOCYTE ESTERASE ,URINE NEGATIVE (NEGATIVE); NITRITE,URINE NEGATIVE (NEGATIVE); PROTEIN,URINE 1+ (NEGATIVE)
[2021-01-23 02:57] LABS: BACTERIA,URINE TRACE /HPF; BILIRUBIN,URINE 1+ (NEGATIVE); SQUAMOUS EPITHELIAL CELL,UR 0-2 /HPF
[2021-01-23 04:00] VITALS: BP 131/70
[2021-01-23] MEDS: MEROPENEM 1,000 MG in WATER (STERILE) FOR INJECTION 20 ML IV SCH (04:39)
[2021-01-23] MEDS: METOCLOPRAMIDE INJ 10 MG/2 ML (REGLAN) IVP SCH (05:16)
[2021-01-23] MEDS: ALBUMIN 25% 25 GM/100 ML 100 ML IV SCH (05:16)
[2021-01-23] MEDS: DOXYCYCLINE 100 MG (VIBRAMYCIN) TABLET PO SCH (05:16)
[2021-01-23 05:30] LABS: HEMATOCRIT 28 % (35-52); HEMOGLOBIN 8.6 g/dL (11.5-16.0); MEAN CORPUSCULAR HEMOGLOBIN 28 pg (25-34); MEAN CORPUSCULAR HGB CONC 31 g/dL (32-36); MEAN CORPUSCULAR VOLUME 92 fL (80-99); MEAN PLATELET VOLUME 11.3 fL (9.0-12.2); PLATELET COUNT 233 10^3/uL (130-400); WHITE BLOOD COUNT 7.2 10^3/uL (4.3-11.0)
[2021-01-23 05:51] LABS: ALBUMIN 2.7 GM/DL (3.2-4.5); POTASSIUM 4.1 MMOL/L (3.6-5.0)
[2021-01-23 05:53] LABS: CALCIUM 8.7 MG/DL (8.5-10.1)
[2021-01-23 05:54] LABS: TOTAL PROTEIN 6.1 GM/DL (6.4-8.2)
[2021-01-23 05:56] LABS: BILIRUBIN,TOTAL 0.7 MG/DL (0.1-1.0)
[2021-01-23 05:58] LABS: CREATININE SERUM 0.55 MG/DL (0.60-1.30)
[2021-01-23 08:00] VITALS: BP 136/76
[2021-01-23] MEDS: LACTOBACILLUS ACIDOPHILUS (PROBIOTIC) CAPSULE PO SCH (08:03)
[2021-01-23] MEDS: KCL 20 MEQ TAB (K-DUR) PO SCH (08:05)
[2021-01-23] MEDS: KETOROLAC 30 MG/ML VIAL IVP PRN (08:28)
[2021-01-23] MEDS: PANTOPRAZOLE 40 MG (PROTONIX) VIAL IV SCH (08:28)
[2021-01-23] MEDS: fluCOnazole (DIFLUCAN) 100 MG TAB PO SCH (08:29)
[2021-01-23] MEDS: DOCUSATE SODIUM 100 MG (COLACE) CAP PO SCH (08:29)
[2021-01-23] MEDS: ENOXAPARIN 40 MG/0.4 ML (LOVENOX) SYR SC SCH (08:30)
[2021-01-23] MEDS ORDERED: SCOPOLAMINE PATCH REMOVAL TP ONE (09:00)
--- NOTE | 2021-01-23 09:31 | Discharge Summary ---
Diagnosis/Chief Complaint Date of Admission Jan 14, 2021 at 16:22 Date of Discharge Discharge Date: Jan 23, 2021 Discharge Time: 0930 Admission Diagnosis Admission Diagnosis ACUTE INJURY HEPATITIS ELEVATED ALKALINE PHOSPHATASE LEUKOCYTOSIS URINARY TRACT INFECTION, SEPSIS HYPERBILIRUBINEMIA WEIGHT LOSS MALAISE ANOREXIA NAUSEA EMESIS WEAKNESS AND FALLING EPISODES DIET CONTROLLED DIABETES MELLITUS ANEMIA HYPOKALEMIA Discharge Diagnosis ACUTE INJURY HEPATITIS ELEVATED ALKALINE PHOSPHATASE LEUKOCYTOSIS URINARY TRACT INFECTION, SEPSIS HYPERBILIRUBINEMIA WEIGHT LOSS MALAISE ANOREXIA NAUSEA EMESIS WEAKNESS AND FALLING EPISODES DIET CONTROLLED DIABETES MELLITUS ANEMIA IRON DEFICIENCY HYPOKALEMIA Reason Hospital Visit BRIANA IS A 60 Y/O FEMALE WHO IS KNOWN TO ME FROM CLINIC AND PREVIOUS HOSPITALIZATIONS. BRIANA PRESENTED TO THE OFFICE FOR A ONE WEEK FOLLOW UP AFTER HAVING BEEN HOME POST HOSPITALIZATION FOR NAUSEA AND DEHYDRATION. BRIANA HAS FAILED OUTPATIENT TREATMENT SHE HAS BECOME WEAKER, BEEN UNABLE TO EAT OR DRINK DUE TO NAUSEA. SHE HAD LABS FROM DR. ANDRADE'S OFFICE WHICH SHOWED AN ELEVATION OF HER WHITE COUNT AND A FURTHER ELEVATION OF HER ALK PHOS. SHE REPORTS THAT SHE IS JUST TOO WEAK AND NAUSEATED TO GET UP DURING THE DAY TO EAT OR DRINK, SHE IS SORE ALL OVER AND CANNOT COMFORTABLY SIT OR LAY DOWN. Discharge Summary Consultations DR. ANDRADE Discharge Physical Examination Allergies: Coded Allergies: valacyclovir HCl (Verified Allergy, Unknown, 01/14/21) Vitals & I&Os Vital Signs Date Time Temp Pulse Resp B/P (MAP) Pulse Ox O2 Delivery O2 Flow Rate FiO2 01/23/21 08:00 36.5 61 20 136/76 (96) 100 Room Air General Appearance: Alert, Oriented X3, Cooperative, Mild Distress HEENT: Atraumatic, PERRLA, Mucous Memb Moist/[place] Respiratory: Clear to Auscultation, Normal Air Movement Cardiovascular: Regular Rate Abdominal: Normal Bowel Sounds, Soft, Other (TTP OVER EPIGASTRIUM, TYMPANITIC) Extremities: No Clubbing, No Cyanosis, Other (TRACE EDEMA) Skin: No Rashes, No Breakdown Neuro: Normal Gait, Cranial Nerves 3-12 NL Psych/Mental Status: Mental Status NL, Mood NL Hospital Course Was the Problem List Reviewed?: Yes ACUTE INJURY HEPATITIS ELEVATED ALKALINE PHOSPHATASE LEUKOCYTOSIS URINARY TRACT INFECTION, SEPSIS HYPERBILIRUBINEMIA WEIGHT LOSS MALAISE ANOREXIA NAUSEA EMESIS WEAKNESS AND FALLING EPISODES DIET CONTROLLED DIABETES MELLITUS ANEMIA IRON DEFICIENCY HYPOKALEMIA ACUTE INJURY HEPATITIS WITH PERSISTENTLY ELEVATED ALKALINE PHOSPHATASE, LEUKOCYTOSIS AND HYPERBILIRUBINEMIA - DISCUSSED CASE WITH DR. ANDRADE - CASE DISCUSSED WITH DR. SANTIAGO - HE IS WONDERING ABOUT [facility] -- HE REQUESTED IMAGING TO BE CLOUDED SO HE COULD REVIEW HER CASE, MAKE RECOMMENDATIONS AND HE HAS INDICATED HE WILL CALL NEXT WEEK WHEN BRIANA IS ON INPT REHAB FOR HER TO BE SEEN IN HIS OFFICE. HE DID NOT MAKE ANY FURTHER RECOMMENDATIONS UNTIL HE HAS REVIEWED HER PERTINENT IMAGING STUDIES. - APPRECIATE HIS INPUT WEIGHT LOSS DUE TO ANOREXIA AND NAUSEA/EMESIS - - DIETARY CONSULT - STARTED REGLAN AT 5MG IV TID - ADDED SCOPOLAMINE PATCH - IMPROVED NAUSEA - PRN ZOFRAN UTI WITH ENTEROCOCCUS, SEPSIS WITH ECOLI - PT ON MEROPENEM - MONITOR FURTHER CULTURE RESULTS - YEAST ON URINE - PT TO CONTINUE WITH DIFLUCAN FOR A FEW MORE DAYS - WILL HAVE TO CLOSELY MONITOR LIVER PANEL - ADDED DOXYCYCLINE PO - PT CLOSE TO END OF TREATMENT MALAISE, WEAKNESS AND FALLING EPISODES - CONSULT TO PHYSICAL AND OCCUPATIONAL THERAPY - IRF PLACEMENT TODAY DIET CONTROLLED DIABETES MELLITUS - AGAIN -CONSULT DIETARY, MONITOR FSBS ONCE TAKING IN MORE PO ANEMIA - REPEAT LABS TODAY SHOWED 2 GRAM BLOOD LOSS OVER THE PAST 2 DAYS. - BLOOD TRANSFUSION TODAY 1 UNIT OF BLOOD - PT WILL NEED IV IRON TOMORROW HYPOKALEMIA - REPLENISHED WITH IV POTASSIUM ABDOMINAL PAIN AND BACK PAIN - STOPPED HYDROCODONE THAT MAY BE CONTRIBUTING TO HER CYCLICAL VOMITING - USE TORADOL FOR PAIN DC'D CABALLERO DVT PROPHYLAXIS WITH SCD'S AND LOVENOX GI PROPHYLAXIS WITH PROBIOTICS AND PROTONIX. Pending Labs Laboratory Tests 01/23/21 02:40: Urine Color ORANGE, Urine Clarity SL CLOUDY, Urine pH 6.0, Urine Specific [place] 1.025, Urine Protein 1+, Urine Glucose (UA) NEGATIVE, Urine Ketones TRACE, Urine Nitrite NEGATIVE, Urine Bilirubin 1+, Urine Urobilinogen 1.0, Urine Leukocyte Esterase NEGATIVE, Urine RBC (Auto) NEGATIVE, Urine RBC NONE, Urine WBC NONE, Urine Squamous Epithelial Cells 0-2, Urine Crystals NONE, Urine Bacteria TRACE, Urine Casts NONE, Urine Mucus LARGE, Urine Culture Indicated NO 01/23/21 05:15: White Blood Count 7.2, Red Blood Count 3.03, Hemoglobin 8.6, Hematocrit 28, Mean Corpuscular Volume 92, Mean Corpuscular Hemoglobin 28, Mean Corpuscular Hemoglobin Concent 31, Red Cell Distribution Width 16.5, Platelet Count 233, Mean Platelet Volume 11.3, Sodium Level 136, Potassium Level 4.1, Chloride Level 100, Carbon Dioxide Level 25, Anion Gap 11, Blood Urea Nitrogen 12, Creatinine 0.55, Estimat Glomerular Filtration Rate 112, BUN/Creatinine Ratio 22, Glucose Level 97, Calcium Level 8.7, Corrected Calcium 9.7, Total Bilirubin 0.7, Aspartate Amino Transf (AST/SGOT) 36, Alanine Aminotransferase (ALT/SGPT) 16, Alkaline Phosphatase 346, Total Protein 6.1, Albumin 2.7 Discharge Condition at discharge STABLE Instructions to patient/family Please see electronic discharge instructions given to patient. Discharge Medications Reviewed and agree with Discharge Medication list on patient's Discharge Instruction sheet DOREEN LI MD Jan 23, 2021 09:31
[2021-01-23] MEDS ORDERED: FUROSEMIDE 40 MG/4 ML INJ (LASIX) IVP ONE (09:45)
[2021-01-23] MEDS ORDERED: NS IV 500 ML 500 ML IV SCH ×2 (09:45)
[2021-01-23] MEDS ORDERED: ACETAMINOPHEN 325 MG TABLET PO PRN (09:45)
[2021-01-23] MEDS ORDERED: diphenhydrAMINE 50 MG/ML INJ (BENADRYL) IVP PRN (09:45)
[2021-01-23] MEDS ORDERED: SCOPOLAMINE 1.5 MG (TRANSDERM-SCOP) PATCH ONE (10:01)
[2021-01-23] MEDS: SIMETHICONE 80 MG (MYLICON) CHEW PO SCH (10:14)
[2021-01-23] MEDS ORDERED: SENNA W/DOCUSATE (SENOKOT S) TABLET PO PRN (10:30)
[2021-01-23] MEDS ORDERED: SENNA W/DOCUSATE (SENOKOT S) TABLET PO ONE (10:45)
--- NOTE | 2021-01-23 10:58 | Progress Note ---
Subjective Date Seen by a Provider: Jan 23, 2021 Time Seen by a Provider: 10:00 Subjective/Events-last exam doing ok. sitting upright at edge of bed. will be transferred to ARU. Objective Exam Vital Signs Date Time Temp Pulse Resp B/P (MAP) Pulse Ox O2 Delivery O2 Flow Rate FiO2 01/23/21 08:00 36.5 61 20 136/76 (96) 100 Room Air 01/23/21 04:00 36.8 96 16 131/70 (90) 96 Room Air 01/23/21 00:00 36.3 96 14 128/77 (94) 93 Room Air 01/22/21 20:00 Room Air 01/22/21 19:30 36.8 01/22/21 19:07 36.8 01/22/21 18:37 38.9 01/22/21 16:00 37.1 109 20 137/82 (100) 99 Room Air I & O 01/23/21 07:00 Intake Total 2460 ml Output Total 450 ml Balance 2010 ml Capillary Refill : General Appearance: No Apparent Distress HEENT: PERRL/EOMI Neck: Full Range of Motion Respiratory: Chest Non Tender, Decreased Breath Sounds Cardiovascular: Regular Rate, Rhythm Gastrointestinal: normal bowel sounds, soft Extremity: Normal Capillary Refill Neurologic/Psychiatric: Alert, Oriented x3 Skin: Normal Color Lymphatic: No Adenopathy Results Lab Laboratory Tests 01/22/21 13:07: Iron Level 12L, Total Iron Binding Capacity 74L, Unsaturated Iron Binding Capacity 62, Transferrin % Saturation 16L, Ferritin 1889.4H, Vitamin B12 Level 737, Vitamin D 25-Hydroxy 10.9L 01/23/21 02:40: Urine Color ORANGE, Urine Clarity SL CLOUDY, Urine pH 6.0, Urine Specific [place] 1.025H, Urine Protein 1+H, Urine Glucose (UA) NEGATIVE, Urine Ketones TRACEH, Urine Nitrite NEGATIVE, Urine Bilirubin 1+H, Urine Urobilinogen 1.0, Urine Leukocyte Esterase NEGATIVE, Urine RBC (Auto) NEGATIVE, Urine RBC NONE, Urine WBC NONE, Urine Squamous Epithelial Cells 0-2, Urine Crystals NONE, Urine Bacteria TRACE, Urine Casts NONE, Urine Mucus LARGEH, Urine Culture Indicated NO 01/23/21 05:15: White Blood Count 7.2, Red Blood Count 3.03L, Hemoglobin 8.6L, Hematocrit 28L, Mean Corpuscular Volume 92, Mean Corpuscular Hemoglobin 28, Mean Corpuscular Hemoglobin Concent 31L, Red Cell Distribution Width 16.5H, Platelet Count 233, Mean Platelet Volume 11.3, Sodium Level 136, Potassium Level 4.1, Chloride Level 100, Carbon Dioxide Level 25, Anion Gap 11, Blood Urea Nitrogen 12, Creatinine 0.55L, Estimat Glomerular Filtration Rate 112, BUN/Creatinine Ratio 22, Glucose Level 97, Calcium Level 8.7, Corrected Calcium 9.7, Total Bilirubin 0.7, Aspartate Amino Transf (AST/SGOT) 36H, Alanine Aminotransferase (ALT/SGPT) 16, Alkaline Phosphatase 346H, Total Protein 6.1L, Albumin 2.7L Microbiology 01/16/21 Urine Culture - Final, Complete YEAST Enterococcus faecium 01/14/21 Blood Culture - Final, Complete No growth Assessment/Plan Assessment/Plan Assess & Plan/Chief Complaint sepsis s/p lap samy and ERCP with stent placement and bilateral atelectasis/pl effusion. cont iv abx. diet as tolerated. ARU transfer soon. GI for further evaluation, for possible ERCP SILVIA ANDRADE MD Jan 23, 2021 10:58
[2021-01-23 11:24] VITALS: BP 136/76
== END 2021-01-23 11:28 | DRG 441 ==
LOC: 4TH 16:22
PROVIDERS: ADMIT Family Medicine; ATTEND Family Medicine
PROC: 02HV33Z Insertion of Infusion Device into Superior Vena Cava, Percutaneous Approach (ICD-10-PCS; principal; 2021-01-21)
DX: B17.9 Acute viral hepatitis, unspecified (principal); A41.51 Sepsis due to Escherichia coli [E. coli]; B37.49 Other urogenital candidiasis; N39.0 Urinary tract infection, site not specified; J98.11 Atelectasis; J90 Pleural effusion, not elsewhere classified; E46 Unspecified protein-calorie malnutrition; B95.2 Enterococcus as the cause of diseases classified elsewhere; I10 Essential (primary) hypertension; E11.9 Type 2 diabetes mellitus without complications; K57.90 Diverticulosis of intestine, part unspecified, without perforation or abscess without bleeding; R10.13 Epigastric pain; K59.00 Constipation, unspecified; M19.91 Primary osteoarthritis, unspecified site; F41.9 Anxiety disorder, unspecified; F32.A Depression, unspecified; R63.0 Anorexia; Z91.81 History of falling; D64.9 Anemia, unspecified; E87.6 Hypokalemia; Z85.3 Personal history of malignant neoplasm of breast; Z88.3 Allergy status to other anti-infective agents
CPT/HCPCS: 36410; 36415; 71045; 72070; 72100; 74175; 74177; 76705; 76937; 80053; 80074; 81000; 82150; 82306; 82607; 82728; 83540; 83550; 83605; 83690; 83735; 85007; 85025; 85027; 86618; 86666; 86668; 86757; 86850; 86900; 86901; 86920; 87040; 87077; 87088; 87186; 93922

== ENCOUNTER 2021-01-23 09:13 | Inpatient (IN) | payer OTHER ==
[~2021-01-23] VITALS: Ht 172.7 cm; Wt 142.9 kg
[~2021-01-23 09:13] MED LIST changes: +L. A1TAB10 PO; +PANT40TA52 PO; +POLY17PO6 PO; +SENN1TAB21 PO; +SUCR1TAB PO
[2021-01-23] MEDS ORDERED: FLEET ENEMA ADULT 1 EA BTL PR PRN (10:30)
[2021-01-23] MEDS ORDERED: LOPERAMIDE 2 MG (IMODIUM) TABLET PO PRN (10:30)
[2021-01-23] MEDS ORDERED: BISACODYL 10 MG SUPP (DULCOLAX) PR PRN (10:30)
[2021-01-23] MEDS ORDERED: CALCIUM CARBONATE 500 MG (TUMS) TAB.CHEW PO PRN (10:30)
[2021-01-23] MEDS ORDERED: DOCUSATE SODIUM 100 MG (COLACE) CAP PO PRN (10:30)
[2021-01-23] MEDS ORDERED: LACTULOSE SYRUP 10GM/15ML (ENULOSE) 30ML UDC PO PRN (10:30)
[2021-01-23] MEDS ORDERED: diphenhydrAMINE 25 MG TAB (BENADRYL) PO PRN (10:30)
[2021-01-23] MEDS ORDERED: guaiFENesin/CODEINE (ROBITUSSIN AC) 10ML UDC PO PRN (10:30)
--- NOTE | 2021-01-23 11:54 | Physical Therapy Evaluation ---
PT Evaluation-General Medical Diagnosis Admission Date Medical Diagnosis: hepatic abscess/leukocytosis/dehydration/anemia Onset Date: Jan 14, 2021 Therapy Diagnosis Therapy Diagnosis: impaired mobility, strength, endurance Referral Physician: Sima Singh DO Reason for Referral: Evaluation/Treatment Medical History Pertinent Medical History: DM, HTN Additional Medical History s/p gallbladder removal October 2020 with increase in N&V, abdominal pain, weight loss Reviewed History: Yes Social History Home: Single Level Current Living Status: Other Family Entry Into Home: Stairs With Railing PT Steps Into Home: 3 Prior Prior Level of Function SCALE: Activities may be completed with or without assistive devices. 7-Rmurbfahhs-dvzhynh completes the activity by him/herself with no assistance from a helper. 5-Set-up or Clean-up Assistance-helper sets up or cleans up; patient completes activity. [place] assists only prior to or following the activity. 4-Supervision or Touching Assistance-helper provides verbal cues and/or touching/steadying and/or contact guard assistance as patient completes activity. Assistance may be provided throughout the activity or intermittently. 3-Partial/Moderate Assistance-helper does LESS THAN HALF the effort. [place] lifts, holds or supports trunk or limbs, but provides less than half the effort. 2-Substantial/Maximal Assistance-helper does MORE THAN HALF the effort. [place] lifts or holds trunk or limbs and provides more than half the effort. 9-Vmuozapod-ezsxoo does ALL the effort. Patient does none of the effort to complete the activity. Or, the assistance of 2 or more helpers is required for the patient to complete the activity. If activity was not attempted, code reason: 7-Patient Refused. 9-Not Applicable-not attempted and the patient did not perform the activity before the current illness, exacerbation or injury. 10-Not Attempted due to Environmental Limitations-(lack of equipment, weather restraints, etc.). 88-Not Attempted due to Medical Conditions or Safety Concerns. Bed Mobility: 6 Transfers (B,C,W/C): 6 Gait: 6 Stairs: 6 Indoor Mobility (Ambulation): Independent Stairs: Independent PT Evaluation-Current Subjective Patient in bed pre tx, agrees to PT, has 5/10 pain in her bottom, nurse aware of pain and took a look at her bottom, she has some redness and a wound there. Will be co-treating with OT due to poor patient mobility, strength, endurance, coordinate UE and LE with activity, safety and reduce risk of falls. Pt/Family Goals to be independent at home Objective Patient Orientation: Person, Place, Situation ROM/Strength ROM Lower Extremities WNL Strength Lower Extremities 3/5 BLE with all movements except hip flexion 2/5 Sensory Vision: Wears Glasses Hearing: Functional Sensation Right Lower Extremit: Intact Sensation Left Lower Extremity: Intact Transfers Roll Left & Right (QC): 3 Sit to Lying (QC): 3 Lying to Sitting/Side of Bed(Q: 1 Sit to Stand (QC): 3 Chair/Mrx-xj-Vlxat Xfer(QC): 4 Toilet Transfer (QC): 4 Car Transfer (QC): 88 Patient performs bed mobility with mod assist, supine to sit dependent, sit to supine mod assist, sit to stand mod assist, transfers CGA. Car transfer not performed due to pain and wounds on bottom. Gait Does the Patient Walk?: Yes Mode of Locomotion: Walk Anticipated Mode of Locomotion: Walk Walk 10 feet (QC): 4 Walk 50 ft with 2 Turns(QC): 88 Walk 150 ft (QC): 88 Walking 10ft/uneven surface-QC: 88 Distance: 40' Gait Assistive Device: FWW Comments/Gait Description Patient can ambulate 40' with a rolling walker with CGA. She attempted to ambulate again but could not stand from WC. Gait is slow but steady. Wheelchair Training Does the Pt Use a Wheelchair?: Yes Distance: 10' Wheel 50 ft with 2 turns (QC): 88 Wheel 150 ft (QC): 88 Type of Wheelchair: Manual SBA Stairs 1 Step (curb) (QC): 88 4 Steps (QC): 88 12 Steps (QC): 88 Balance Sitting Static: Normal Sitting Dynamic: Fair Standing Static: Fair Standing Dynamic: Fair Picking up an Object (QC): 88 Treatment PT performed bed mobility and transfers, ambulation, standing and safety during dressing, OT performed dressing, UE positioning and safety during activity. Assessment/Needs Patient in bed post tx with nurse call, phone, tray, all needs met. Patient has impaired mobility, strength, endurance. Strength testing is inconsistent with what she can do and she has inconsistencies of performance during tx. Rehab Potential: Fair PT Short Term Goals Short Term Goals Time Frame: Jan 30, 2021 Roll Left & Right: 6 Sit to lyin Lying to sitting on side of be: 3 Sit to stand: 3 Chair/ysi-bx-fiffl transfer: 4 PT Pump Servicer Helper Goals Fpc Goals PT Fpc Goals Time Frame: Feb 13, 2021 Roll Left & Right (QC): 6 Sit to Lying (QC): 5 Lying-Sitting on Side/Bed(QC): 5 Sit to Stand (QC): 4 Chair/Lgj-gm-Ihgwf Xfer(QC): 4 Toilet Transfer (QC): 4 Car Transfer (QC): 4 Does the Patient Walk: Yes Walk 10 feet (QC): 4 Walk 50ft with 2 Turns (QC): 4 Walk 150 ft (QC): 4 Walking 10ft on Uneven Surface: 4 1 Step (curb) (QC): 4 4 Steps (QC): 4 12 Steps (QC): 88 Picking up an Object (QC): 4 Wheel 50 feet with 2 turns (QC: 9 Wheel 150 feet: 9 PT Plan Problem List Problem List: Activity Tolerance, Functional Strength, Safety, Balance, Gait, Transfer, Bed Mobility, ROM Treatment/Plan Treatment Plan: Continue Plan of Care Treatment Plan: Bed Mobility, Education, Functional Activity Altaf, Functional Strength, Group Therapy, Gait, Safety, Therapeutic Exercise, Transfers Treatment Duration: Feb 13, 2021 Frequency: At least 5 of 7 days/Wk (IRF) Estimated Hrs Per Day: 1.5 hours per day Patient and/or Family Agrees t: Yes Safety Risks/Education Patient Education: Gait Training, Transfer Techniques, Correct Positioning, W/C Management, Safety Issues Teaching Recipient: Patient Teaching Methods: Demonstration, Discussion Response to Teaching: Reinforcement Needed Discharge Recommendations Plan Patient will perform bed mobility and transfer training, balance and endurance training, functional strengthening, stair training, gait training, and education, to improve functional mobility and independence at home. Therapy Discharge Recommendati: Scheduled Assistance, Home & Family, Post Acute PT Time/GCodes Time In: 1100 Time Out: 1200 Total Billed Treatment Time: 60 Total Billed Treatment 1 visit EVM 10' FA 50' co-treated from [id number] JENARO NOLAN PT Jan 23, 2021 11:54
--- NOTE | 2021-01-23 12:00 | Occupational Therapy Eval ---
OT Evaluation-General/PLF Medical Diagnosis Admission Date Jan 23, 2021 Medical Diagnosis: disuse myopathy Onset Date: Jan 14, 2021 Therapy Diagnosis Therapy Diagnosis: weakness, decreased ADL status Referral Physician: Sima Singh DO Referral Reason: Evaluation/Treatment Medical History Pertinent Medical History: DM, HTN Current History s/p gallbladder removal October 2020 with increase in N&V, abdominal pain, weight loss. Transfer to [facility] 01/23/21 for continued medication management and skilled therapies. Social History Home: Single Level Current Living Status: Other Family Entry Into Home: Stairs With Railing Steps Into Home: 3 ADL-Prior Level of Function SCALE: Activities may be completed with or without assistive devices. 8-Gafvqcptkc-hrglepx completes the activity by him/herself with no assistance from a helper. 5-Set-up or Clean-up Assistance-helper sets up or cleans up; patient completes activity. [place] assists only prior to or following the activity. 4-Supervision or Touching Assistance-helper provides verbal cues and/or touching/steadying and/or contact guard assistance as patient completes activity. Assistance may be provided throughout the activity or intermittently. 3-Partial/Moderate Assistance-helper does LESS THAN HALF the effort. [place] lifts, holds or supports trunk or limbs, but provides less than half the effort. 2-Substantial/Maximal Assistance-helper does MORE THAN HALF the effort. [place] lifts or holds trunk or limbs and provides more than half the effort. 0-Mczikpows-smtxkv does ALL the effort. Patient does none of the effort to complete the activity. Or, the assistance of 2 or more helpers is required for the patient to complete the activity. If activity was not attempted, code reason: 7-Patient Refused. 9-Not Applicable-not attempted and the patient did not perform the activity before the current illness, exacerbation or injury. 10-Not Attempted due to Environmental Limitations-(lack of equipment, weather restraints, etc.). 88-Not Attempted due to Medical Conditions or Safety Concerns. ADL PLOF Comments Pt reports IND with ADLs and functional mobility at [facility], no AE/AD. 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 Self Care: Independent Functional Cognition: Independent DME/Equipment: Bath Chair, Tub/Shower OT Current Status Subjective Pt agreeable to OT evaluation, then cotreat with PT. Reports pain in buttocks, nurse present to assess wound, pt did not provide pain rating. Mental Status/Objective Patient Orientation: Person, Place, Time, Situation Current Glasses/Contacts: Yes Hearing Aids: No Dentures/Partials: No Hand Dominance: Right Upper Extremity ROM WFL, BUE shoulder flexion to approx 140 degrees. Upper Extremity Coordination WFL Upper Extremity Sensation WFL Upper Extremity Strength grossly 3+/5 BUEs. ADL-Treatment Eating (QC): 6 (Per pt report, IND with breakfast.) Oral Hygiene (QC): 5 (based on clincial judgment.) Shower/Bathe Self (QC): 1 (Assist x2 required in stand.) Upper Body Dressing (QC): 5 (set up with assembler for puller over hand night gown.) Lower Body Dressing (QC): 1 (Pt able to thread BLEs into pants, assist with pant hike. Assist x2 required in stand.) On/Off Footwear (QC): 1 (total assist donning gripper socks.) Toileting Hygiene (QC): 1 (Assist x2 required for clothing management.) Other Treatments OT evaluation complete. OT/PT cotreat due to skill of 2 clinicians required which a industrial rehabilitation consultant could not perform in order to decrease fall risk, coordinate UE/LEs and due to pt's limitations with strength, activity tolerance, mobility, and transfers. OT focused on ADLs, UE placement, cues for sequencing and safety, PT focused on LE placement, transfers/mobility, and gross overall movements. Pt transferred from supine to sit EOB, donned clothes, then used FWW to perform functional mobility in hallways with w/c follow. Pt took seated rest break after ~40'. Pt attempted to stand to perform functional mobility again, but too tired to continue. Pt taken back to her room, rest break given, then transferred to bed and supine. Post tx, pt in bed, call light in reach and all needs met. Patient performs bed mobility with mod assist, supine to sit dependent, sit to supine mod assist, sit to stand mod assist, transfers CGA. Education OT Patient Education: Correct positioning, Energy conservation, Exercise program, Modified ADL techniques, Progress toward Goal/Update tx plan, Purpose of tx/functional activities, Rehab process, Safety issues, Transfer techniques Teaching Recipient: Patient Teaching Methods: Discussion Response to Teaching: Verbalize Understanding OT Short Term Goals Short Term Goals Time Frame: Feb 06, 2021 Toileting hygiene: 3 Shower/bathe self: 3 Lower body dressin Putting on/taking off footwear: 3 OT Halfway Goals Halfway Goals Time Frame: Feb 20, 2021 Eating (QC): 6 Oral Hygiene (QC): 6 Toileting Hygiene (QC): 6 Shower/Bathe Self (QC): 6 Upper Body Dressing (QC): 6 Lower Body Dressing (QC): 6 On/Off Footwear (QC): 6 Additional Goals: 1-Demonstrate ADL Tasks, 2-Verbalize Understanding, 3-Imp roveStrength/Altaf 1=Demonstrate adherence to instructed precautions during ADL tasks. 2=Patient will verbalize/demonstrate understanding of assistive devices/modifications for ADL. 3=Patient will improve strength/tolerance for activity to enable patient to perform ADL's. OT Education/Plan Problem List/Assessment Assessment: Decreased Activ Tolerance, Decreased Safety Aware, Decreased UE Strength, Dependent Transfers, Impaired Bed Mobility, Impaired Funct Balance, Impaired I ADL's, Impaired Self-Care Skills Discharge Recommendations Plan/Recommendations: Continue POC Treatment Plan/Plan of Care Patient would benefit from OT for education, treatment and training to promote independence in ADL's, mobility, safety and/or upper extremity function for ADL's. Plan of Care: ADL Retraining, Functional Mobility, Group Exercise/Act as Ind, UE Funct Exercise/Act Treatment Duration: Feb 20, 2021 Frequency: At least 5 of 7 days/Wk (IRF) Estimated Hrs Per Day: 1.5 hours per day Rehab Potential: Fair Time/GCodes Start Time: 10:50 Stop Time: 12:00 Total Time Billed (hr/min): 60 Billed Treatment Time [id number] OT eval, [id number] PT eval (not billed), [id number] OT/PT cotreat. 1, EVM (10'), ADL (20'), FA 2 (30') MELINA TREJO OT Jan 23, 2021 12:00
--- OUTSIDE RECORDS SUMMARY | 2021-01-23 12:13 | XMS REPORT | CCD ---
Author Author Cecilia Garcia Organization Divya Garcia MD, 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 Never smoker 02/26/[address]: 660177735 Never drinks alcohol 2014 Allergies, Adverse Reactions, Alerts Substance Reaction Codes Entered Date Inactivated Date Status * OTHER REACTION - SEE ANSWER BOX valtrex- causes rash Unknown 02/26/2015 No Inactive Date Active Problems Condition Codes Effective Dates Condition Status Elevated liver enzymes ICD-10: R74.8 ICD-9: 790.5 12/22/2020 Active Abdominal pain ICD-10: R10.9 ICD-9: 789.00 12/22/2020 Active Biliary stricture ICD-10: K83.1 ICD-9: 576.2 12/22/2020 Active Dehydration ICD-10: E86.0 ICD-9: 276.51 12/22/2020 Active Other postoperative complication involving digestive [...] hydrocodone 7.5 mg-acetaminophen 325 mg tablet RxNorm: 08438 5 Take 1 Tablet(s) Oral four times a day 12/25/2020 01/23/2021 Active ondansetron 4 mg disintegrating tablet RxNorm: 322667 1 Tablet(s) Oral Q6 as needed 12/24/2020 01/22/2021 Active lactulose 10 gram/15 mL (15 mL) oral solution RxNorm: 299850 15 Milliliter(s) Oral every day take dose daily until has BM then change to PRN 12/24/2020 01/22/2021 Active 1 bottle Cipro 500 mg tablet RxNorm: 087554 1 Tablet(s) Oral two times a day 12/24/2020 12/24/2020 Inactive ondansetron 4 mg disintegrating tablet RxNorm: 167082 1 Tablet(s) Oral Q6 as needed 12/24/2020 12/24/2020 Inactive Flagyl 500 mg tablet RxNorm: 576573 1 Tablet(s) Oral three time s a day 12/24/2020 12/30/2020 Inactive Flagyl 500 mg tablet RxNorm: 073399 1 Tablet(s) Oral three time s a day 12/24/2020 12/24/2020 Inactive lactulose 10 gram/15 mL (15 mL) oral solution RxNorm: 658715 15 Milliliter(s) Oral every day take dose daily until has BM then change to PRN 12/24/2020 12/24/2020 Inactive 1 bottle bupropion HCl 75 mg tablet RxNorm: 374861 1 Tablet(s) Oral two times a day 12/24/2020 12/24/2020 Inactive bupropion HCl 75 mg tablet RxNorm: 748333 1 Tablet(s) Oral two times a day 12/24/2020 01/04/2021 Inactive Cipro 500 mg tablet RxNorm: 092293 1 Tablet(s) Oral two times a day 12/24/2020 12/30/2020 Inactive fluconazole 150 mg tablet RxNorm: 050217 Take 1 Tablet(s) Oral every other day 12/22/2020 12/27/2020 Inactive nystatin 100,000 unit/mL oral suspension RxNorm: 106579 Take 5 Milliliter(s) Oral four times a day 12/22/2020 12/31/2020 Inactive Diflucan 150 mg tablet RxNorm: 995478 Take 1 Tablet(s) Oral jeffy ry day 12/04/2020 12/04/2020 Inactive Diflucan 150 mg tablet RxNorm: 573548 Take 1 Tablet(s) Oral jeffy ry day 12/04/2020 12/10/2020 Inactive cephalexin 500 mg tablet RxNorm: 844529 1 Tablet(s) Oral three times a day 08/05/2020 08/12/2020 Inactive metformin 500 mg tablet RxNorm: 308427 TKAE 1/2 TABLET BY MOUTH TWICE DAILY 05/12/2020 02/05/2021 Active Vitamin D2 1,250 mcg (50,000 unit) capsule RxNorm: 6028537 1 Capsule(s) Oral once a week 04/15/2020 07/14/2020 Inactive tramadol 50 mg tablet RxNorm: 983875 1 Tablet(s) Oral t hree times a day as needed arthritis pain 03/24/2020 07/21/2020 Inactive metformin 500 mg tablet RxNorm: 851690 TKAE 1/2 TABLET BY MOUTH TWICE DAILY 02/11/2020 05/10/2020 Inactive metformin 500 mg tablet RxNorm: 863471 TABLET(S) TAKE 1 /2 TABLET BY MOUTH TWICE DAILY 07/12/2019 02/10/2020 Inactive metformin 500 mg tablet RxNorm: 125430 TABLET(S) TAKE 1 /2 TABLET BY MOUTH TWICE DAILY 06/19/2019 07/11/2019 Inactive Keflex 500 mg capsule RxNorm: 799901 1 Capsule(s) Oral three ti mes a day 05/03/2019 05/02/2019 Inactive cephalexin 500 mg tablet RxNorm: 321901 1 Tablet(s) Oral three times a day 05/03/2019 05/10/2019 Inactive interactions reviewe d, fill the medication as written please Bactrim DS 800 mg-160 mg tablet RxNorm: 057261 1 Tablet(s) Oral two times a day 03/23/2019 03/22/2019 Inactive Bactrim DS 800 mg-160 mg tablet RxNorm: 043634 1 Tablet(s) Oral two times a day 03/23/2019 04/01/2019 Inactive Vitamin D3 5,000 unit tablet RxNorm: 298036 1 Tablet(s) PO daily No Stop Date Active Voltaren 1 % topical gel RxNorm: 816476 2 Gram(s) TOP QID 12/26/2018 04/24/2019 Inactive metformin 500 mg tablet RxNorm: 057863 TABLET(S) TAKE 1 /2 TABLET BY MOUTH TWICE DAILY 10/30/2018 06/18/2019 Inactive metformin 500 mg tablet RxNorm: 292896 TABLET(S) TAKE 1 /2 TABLET BY MOUTH TWICE DAILY 05/18/2018 10/29/2018 Inactive metformin 500 mg tablet RxNorm: 688878 Tablet(s) TAKE 1 /2 TABLET BY MOUTH TWICE DAILY 10/13/2017 04/10/2018 Inactive metformin 500 mg tablet RxNorm: 870466 TAKE 1/2 TABLET BY MOUTH TWICE DAILY 09/02/2017 10/12/2017 Inactive Phenergan with Codeine Syrup RxNorm: 5-10 Milliliter(s) PO QID as needed 05/06/2017 10/29/2018 Inactive Kenalog 40 mg/mL suspension for injection RxNorm: 8750608 1 Mill iliter(s) Inj 05/06/2017 05/06/2017 Inactive Tamiflu 75 mg capsule RxNorm: 297234 1 Capsule(s) PO BID 05/06/2017 0 05/10/2017 Inactive prednisone 20 mg tablet RxNorm: 188679 2 Tablet(s) PO daily 018 05/10/2017 Inactive cefdinir 300 mg capsule RxNorm: 915827 1 Capsule(s) PO BID 05/06/19 18 05/15/2017 Inactive Zithromax Z-Xavier 250 mg tablet RxNorm: 971852 1 Tablet(s) PO UD 04/2505/17/2018 Inactive ceftriaxone 500 mg solution for injection RxNorm: 6660844 1 Mill iliter(s) Inj 05/06/2017 05/06/2017 Inactive metformin 500 mg tablet RxNorm: 509440 TAKE 1/2 TABLET BY MOUTH TWICE DAILY 11/29/2016 10/12/2017 Inactive Vitamin D2 50,000 unit capsule RxNorm: 554768 1 Capsule(s) PO QW 04/08/2017 Inactive hydrochlorothiazide 25 mg tablet RxNorm: 795228 1 Table t(s) PO daily as needed edema 10/06/2016 02/02/2017 Inactive potassium chloride ER 10 mEq tablet,extended release RxNorm: 065256 1 Tablet(s) PO daily as needed when taking hctz 10/06/2016 02/02/2017 Inactive metformin 500 mg tablet RxNorm: 405048 1/2 Tablet(s) PO BID 017 10/12/2017 Inactive prednisone 20 mg tablet RxNorm: 472688 2 Tablet(s) PO P RN at onset of exposure to insect bite 10/06/2016 12/25/2018 Inactive tramadol 50 mg tablet RxNorm: 761369 1 Tablet(s) PO TID as needed arthritis pain 10/06/2016 02/02/2017 Inactive metformin 500 mg tablet RxNorm: 230788 1/2 TABLET(S) PO BID 016 10/05/2016 Inactive Vitamin D2 50,000 unit capsule RxNorm: 992306 1 Capsule(s) PO QW 08/26/2015 Inactive Vitamin D3 5,000 unit tablet RxNorm: 981235 1 Tablet(s) PO daily 01/14/2016 Inactive metformin 500 mg tablet RxNorm: 987013 1/2 Tablet(s) PO BID 015 03/02/2015 Inactive Vitamin D2 50,000 unit capsule RxNorm: 239757 1 Capsule(s) PO QW 05/28/2015 Inactive metformin 500 mg tablet RxNorm: 365372 1/2 Tablet(s) PO BID 015 02/25/2016 Inactive Vitamin D2 50,000 unit capsule RxNorm: 555034 1 Capsule(s) PO QW 03/02/2015 Inactive Xiidra 5 % eye drops in a dropperette RxNorm: 5246500 1 ophthalm ic (eye) BID 12/26/2018 Active Vitamin D3 1,000 unit tablet RxNorm: 224394 1 Tablet(s) PO daily 12/25/2018 Inactive Medication Administered Medication Codes Instructions Start Date Status ceftriaxone 500 mg solution for injection RxNorm: 1646956 1Milli liter 05/06/2017 No longer Active Kenalog 40 mg/mL suspension for injection RxNorm: 6450004 1Milli liter 05/06/2017 No longer Active Immunizations Vaccine Codes Date Status Influenza CVX: 135 01/22/2015 Tetanus, Diptheria, Pertussis CVX: 04/25/2012 Tetanus/Diptheria CVX: 04/25/2012 Results Observation Observation Code Item Item Code Result Date S ervice Location Comp Metabolic Asj880 NA 140 mEq/L 04/10/2020 Unkn own Comp Metabolic Rwb447 K 4.4 mEq/L 04/10/2020 Unkn own Comp Metabolic Ycq123 CL 101 mEq/L 04/10/2020 Unkn own Comp Metabolic Vwe914 CO2 31.0 mEq/L 04/10/2020 Unk nown Comp Metabolic Wzz206 ANION GAP 12 04/10/2020 Unkn own Comp Metabolic Lpr934 GLUCOSE 105 mg/dL 04/10/2020 Unkn own Comp Metabolic Lvi163 Creat 0.9 mg/dL 04/10/2020 Unkn own Comp Metabolic Avz131 eGFR 66 ml/min/1.73m2 04/10/20 20 Unknown Comp Metabolic Qyq715 BUN 18 mg/dL 04/10/2020 Unkn own Comp Metabolic Cwz198 B/C Ratio 19.6 Ratio 04/10/2020 Unk nown Comp Metabolic Wql208 CALCIUM 9.3 mg/dL 04/10/2020 Unkn own Comp Metabolic Kvj800 ALK PHOS 64 U/L 04/10/2020 Unkn own Comp Metabolic Lbb663 AST(SGOT) 14 U/L 04/10/2020 Unkn own Comp Metabolic Fri523 ALT(SGPT) 13 U/L 04/10/2020 Unkn own Comp Metabolic Tcn837 BILI T 0.5 mg/dL 04/10/2020 Unkn own Comp Metabolic Npc734 ALBUMIN 3.8 g/dL 04/10/2020 Unkn own Comp Metabolic Tex510 TPRO 6.8 g/dL 04/10/2020 Unkn own Comp Metabolic Mvd110 GLOB 3.0 g/dL 04/10/2020 Unkn own Comp Metabolic Kot160 A/G Ratio 1.2 Ratio 04/10/2020 Unkn own Comp Metabolic Qmv702 Osmo 282 mOsmo 04/10/2020 Unkn own Tsh Ord6 TSH (3rd IS) 1.67 uIU/mL 04/10/2020 Unkn own %Hba1C Wjc245 % HbA1c 61964-1 6.0 % 04/10/2020 Unknown %Hba1C Hlv883 Gluc Ave 126 mg/dL 04/10/2020 Unknown Cbc With Differential Ord2 WBC 9.37 K/ul 04/10/20 Unknown Cbc With Differential Ord2 RBC 4.58 M/ul 04/10/20 Unknown Cbc With Differential Ord2 HGB 14.3 g/dl 04/10/20 Unknown Cbc With Differential Ord2 HCT 44.0 % 04/10/20 Unknown Cbc With Differential Ord2 Neut% 67.0 % 04/10/20 Unknown Cbc With Differential Ord2 Lymph% 23.7 % 04/10/20 Unknown Cbc With Differential Ord2 MCV 96.1 fl 04/10/20 Unknown Cbc With Differential Ord2 MCH 31.2 pg 04/10/20 Unknown Cbc With Differential Ord2 Bent% 7.3 % 04/10/20 Unknown Cbc With Differential Ord2 Eos% 1.6 % 04/10/20 Unknown Cbc With Differential Ord2 MCHC 32.5 pg 04/10/20 Unknown Cbc With Differential Ord2 Baso% 0.4 % 04/10/20 Unknown Cbc With Differential Ord2 PLT 316 K/ul 04/10/20 Unknown Cbc With Differential Ord2 Neut ABS# 6.28 K/ul 04/10/20 Unknown Cbc With Differential Ord2 RDW 14.1 % 04/10/20 Unknown Cbc With Differential Ord2 Lymph ABS# 2.22 K/ul 020 Unknown Cbc With Differential Ord2 Bent ABS# 0.7 K/ul 04/10/20 Unknown Cbc With [...] Ratio 04/10/2020 Unknown Vitamin D 25 Oh Lbn6106 VITAMIN D, 25 HYDROXY 17.87 ng/mL 04/10/2020 Unknown %Hba1C Gkx888 % HbA1c 16198-2 6.0 % 12/22/2018 Unknown %Hba1C Bqq379 Gluc Ave 126 mg/dL 12/22/2018 Unknown Microalbumin Ssv321 MicroAlb <0.7 mg/dL 05/26/2018 Unkno wn Comp Metabolic Ive193 NA 139 mEq/L 05/26/2018 Unkn own Comp Metabolic Wvk324 K 4.7 mEq/L 05/26/2018 Unkn own Comp Metabolic Uny609 CL 101 mEq/L 05/26/2018 Unkn own Comp Metabolic Bry583 CO2 32.0 mEq/L 05/26/2018 Unk nown Comp Metabolic Nyi957 ANION GAP 11 05/26/2018 Unkn own Comp Metabolic Wwo975 GLUCOSE 98 mg/dL 05/26/2018 Unkn own Comp Metabolic Dqm854 Creat 0.9 mg/dL 05/26/2018 Unkn own Comp Metabolic Fbx117 eGFR 69 ml/min/1.73m2 05/26/19 19 Unknown Comp Metabolic Evj145 BUN 17 mg/dL 05/26/2018 Unkn own Comp Metabolic Cjn310 B/C Ratio 19.1 Ratio 05/26/2018 Unk nown Comp Metabolic Hmx604 CALCIUM 9.3 mg/dL 05/26/2018 Unkn own Comp Metabolic Spv393 ALK PHOS 61 U/L 05/26/2018 Unkn own Comp Metabolic Avb757 AST(SGOT) 14 U/L 05/26/2018 Unkn own Comp Metabolic Nbs445 ALT(SGPT) 14 U/L 05/26/2018 Unkn own Comp Metabolic Kgr526 BILI T 0.7 mg/dL 05/26/2018 Unkn own Comp Metabolic Ciu438 ALBUMIN 3.8 g/dL 05/26/2018 Unkn own Comp Metabolic Gyh535 TPRO 6.9 g/dL 05/26/2018 Unkn own Comp Metabolic Aao417 GLOB 3.1 g/dL 05/26/2018 Unkn own Comp Metabolic Grf988 A/G Ratio 1.2 Ratio 05/26/2018 Unkn own Comp Metabolic Mot097 Osmo 279 mOsmo 05/26/2018 Unkn own Lipid [...] 05/26/19 19 Unknown Cbc With Differential Ord2 Bent% 8.5 % 05/26/19 19 Unknown Cbc With [...] K/ul 019 Unknown Cbc With Differential Ord2 Bent ABS# 0.7 K/ul 05/26/19 19 Unknown Cbc With Differential Ord2 Eos ABS# 0.2 K/ul 05/26/19 19 Unknown Cbc With Differential Ord2 Baso ABS# 0.1 K/ul 05/26/19 19 Unknown Tsh Ord6 TSH (3rd IS) 1.58 uIU/mL 05/26/2018 Unkn own %Hba1C Sxa594 % HbA1c 02265-9 5.8 % 05/26/2018 Unknown %Hba1C Qqw293 Gluc Ave 120 mg/dL 05/26/2018 Unknown C A/B FLU 1347635 Influenza A Scr Negative 05/06/2017 Unk nown C A/B FLU 1970969 Influenza B Scr Negative 05/06/2017 Unk nown C A/B FLU [id number] Influenza Intrp B AG:PRID:PT:NOSE:NOM:IF See Footnote 05/06/2017 Unknown Free T4 Lqe550 FREE T4 1.03 ng/dL 03/02/2017 Unknown %Hba1C Ulg369 % HbA1c 13327-7 5.4 % 03/02/2017 Unknown %Hba1C Jig036 Gluc Ave 108 mg/dL 03/02/2017 Unknown Comp Metabolic Duf448 NA 140 mEq/L 03/02/2017 Unkn own Comp Metabolic Yun160 K 4.4 mEq/L 03/02/2017 Unkn own Comp Metabolic Wmc965 CL 101 mEq/L 03/02/2017 Unkn own Comp Metabolic Nyb800 CO2 29.0 mEq/L 03/02/2017 Unk nown Comp Metabolic Ysw252 ANION GAP 14 03/02/2017 Unkn own Comp Metabolic Amv500 GLUCOSE 94 mg/dL 03/02/2017 Unkn own Comp Metabolic Tbf794 Creat 1.0 mg/dL 03/02/2017 Unkn own Comp Metabolic Roz278 eGFR 63 ml/min/1.73m2 03/02/20 17 Unknown Comp Metabolic Kis659 BUN 20 mg/dL 03/02/2017 Unkn own Comp Metabolic Kuu119 B/C Ratio 20.6 Ratio 03/02/2017 Unk nown Comp Metabolic Ddf356 CALCIUM 9.2 mg/dL 03/02/2017 Unkn own Comp Metabolic Hkz348 ALK PHOS 67 U/L 03/02/2017 Unkn own Comp Metabolic Afl917 AST(SGOT) 17 U/L 03/02/2017 Unkn own Comp Metabolic Mwr904 ALT(SGPT) 17 U/L 03/02/2017 Unkn own Comp Metabolic Yhx040 BILI T 0.5 mg/dL 03/02/2017 Unkn own Comp Metabolic Yeh034 ALBUMIN 3.9 g/dL 03/02/2017 Unkn own Comp Metabolic Dpg938 TPRO 6.8 g/dL 03/02/2017 Unkn own Comp Metabolic Asi318 GLOB 2.9 g/dL 03/02/2017 Unkn own Comp Metabolic Due965 A/G Ratio 1.4 Ratio 03/02/2017 Unkn own Comp Metabolic Zdg227 Osmo 282 mOsmo 03/02/2017 Unkn own Cbc [...] 03/02/20 17 Unknown Cbc With Differential Ord2 Bent% 8.3 % 03/02/20 17 Unknown Cbc With [...] K/ul 017 Unknown Cbc With Differential Ord2 Bent ABS# 0.8 K/ul 03/02/20 17 Unknown Cbc [...] Fe-%Sat 30.4 % 03/02/2017 Unknown Comp Metabolic Tra102 NA 140 mEq/L 10/11/2016 Unkn own Comp Metabolic Efy932 K 4.9 mEq/L 10/11/2016 Unkn own Comp Metabolic Ubv782 CL 100 mEq/L 10/11/2016 Unkn own Comp Metabolic Ndp133 CO2 32.0 mEq/L 10/11/2016 Unk nown Comp Metabolic Roa035 ANION GAP 13 10/11/2016 Unkn own Comp Metabolic Ntj976 GLUCOSE 95 mg/dL 10/11/2016 Unkn own Comp Metabolic Gcf580 Creat 1.0 mg/dL 10/11/2016 Unkn own Comp Metabolic Gub337 eGFR 64 ml/min/1.73m2 10/12/19 17 Unknown Comp Metabolic Dyl900 BUN 17 mg/dL 10/11/2016 Unkn own Comp Metabolic Txb818 B/C Ratio 17.9 Ratio 10/11/2016 Unk nown Comp Metabolic Dhh497 CALCIUM 9.5 mg/dL 10/11/2016 Unkn own Comp Metabolic Rje392 ALK PHOS 65 U/L 10/11/2016 Unkn own Comp Metabolic Ujd282 AST(SGOT) 16 U/L 10/11/2016 Unkn own Comp Metabolic Skv133 ALT(SGPT) 16 U/L 10/11/2016 Unkn own Comp Metabolic Lby186 BILI T 0.6 mg/dL 10/11/2016 Unkn own Comp Metabolic Juz829 ALBUMIN 3.8 g/dL 10/11/2016 Unkn own Comp Metabolic Fen767 TPRO 6.7 g/dL 10/11/2016 Unkn own Comp Metabolic Mzi956 GLOB 2.9 g/dL 10/11/2016 Unkn own Comp Metabolic Mnx467 A/G Ratio 1.3 Ratio 10/11/2016 Unkn own Comp Metabolic Cem585 Osmo 281 mOsmo 10/11/2016 Unkn own Cbc [...] 10/12/19 17 Unknown Cbc With Differential Ord2 Bent% 8.2 % 10/12/19 17 Unknown Cbc With [...] K/ul 017 Unknown Cbc With Differential Ord2 Bent ABS# 0.7 K/ul 10/12/19 17 Unknown Cbc With Differential Ord2 Eos ABS# 0.2 K/ul 10/12/19 17 Unknown Cbc With Differential Ord2 Baso ABS# 0.0 K/ul 10/12/19 17 Unknown Vitamin D 25 Oh Hci4857 VITAMIN D, 25 HYDROXY 14.10 ng/mL 10/11/2016 Unknown Lipid Ord30 CHOL 169 mg/dL 10/11/2016 Unknown Lipid Ord30 HDL 44.0 mg/dl 10/11/2016 Unknown Lipid Ord30 TRIG 139 mg/dL 10/11/2016 Unknown Lipid Ord30 LDL 97 mg/dL 10/11/2016 Unknown Lipid Ord30 C/HDL 3.8 Ratio 10/11/2016 Unknown %Hba1C Ejl921 % HbA1c 70544-5 5.5 % 10/11/2016 Unknown %Hba1C Ndm227 Gluc Ave 111 mg/dL 10/11/2016 Unknown Tsh [...] 01/19/20 16 Unknown Cbc With Differential Ord2 Bent% 7.7 % 01/19/20 16 Unknown Cbc With [...] K/ul 016 Unknown Cbc With Differential Ord2 Bent ABS# 0.7 K/ul 01/19/20 16 Unknown Cbc [...] Ratio 01/19/2016 Unknown Vitamin D 25 Oh Usd1103 VITAMIN D, 25 HYDROXY 33.57 ng/mL 01/19/2016 Unknown %Hba1C Hyj663 % HbA1c 94356-3 5.6 % 01/19/2016 Unknown %Hba1C Ylx606 Gluc Ave 114 mg/dL 01/19/2016 Unknown Comp Metabolic Esi226 NA 136 mEq/L 01/19/2016 Unkn own Comp Metabolic Rny259 K 4.1 mEq/L 01/19/2016 Unkn own Comp Metabolic Qhd805 CL 100 mEq/L 01/19/2016 Unkn own Comp Metabolic Ezq740 CO2 32.0 mEq/L 01/19/2016 Unk nown Comp Metabolic Zxu315 ANION GAP 8 01/19/2016 Unkn own Comp Metabolic Kas529 GLUCOSE 96 mg/dL 01/19/2016 Unkn own Comp Metabolic Ned504 Creat 0.9 mg/dL 01/19/2016 Unkn own Comp Metabolic Dob868 eGFR 68 ml/min/1.73m2 01/19/20 16 Unknown Comp Metabolic Hot254 BUN 19 mg/dL 01/19/2016 Unkn own Comp Metabolic Xqf967 B/C Ratio 20.9 Ratio 01/19/2016 Unk nown Comp Metabolic Vka973 CALCIUM 9.4 mg/dL 01/19/2016 Unkn own Comp Metabolic Ktw828 ALK PHOS 59 U/L 01/19/2016 Unkn own Comp Metabolic Aqs001 AST(SGOT) 15 U/L 01/19/2016 Unkn own Comp Metabolic Qfd042 ALT(SGPT) 15 U/L 01/19/2016 Unkn own Comp Metabolic Qpb380 BILI T 0.6 mg/dL 01/19/2016 Unkn own Comp Metabolic Bda892 ALBUMIN 3.9 g/dL 01/19/2016 Unkn own Comp Metabolic Amp276 TPRO 6.8 g/dL 01/19/2016 Unkn own Comp Metabolic Qbq644 GLOB 2.9 g/dL 01/19/2016 Unkn own Comp Metabolic Oyw980 A/G Ratio 1.4 Ratio 01/19/2016 Unkn own Comp Metabolic Uii579 Osmo 274 mOsmo 01/19/2016 Unkn own Tsh Ord6 hTSH II 1.47 uIU/mL 01/19/2016 Unknown %Hba1C Owl387 % HbA1c 12737-6 5.9 % 05/30/2015 Unknown %Hba1C Xzt302 Gluc Ave 123 mg/dL 05/30/2015 Unknown Tsh Ord6 hTSH II 1.51 uIU/mL 02/27/2015 Unknown Comp Metabolic Zlk620 NA 134 mEq/L 02/27/2015 Unkn own Comp Metabolic Vwb163 K 4.3 mEq/L 02/27/2015 Unkn own Comp Metabolic Aaa359 CL 102 mEq/L 02/27/2015 Unkn own Comp Metabolic Ijs141 CO2 24.0 mEq/L 02/27/2015 Unk nown Comp Metabolic Pqa428 ANION GAP 12 02/27/2015 Unkn own Comp Metabolic Qlu816 GLUCOSE 131 mg/dL 02/27/2015 Unkn own Comp Metabolic Oxg807 Creat 1.1 mg/dL 02/27/2015 Unkn own Comp Metabolic Ysj599 eGFR 57 ml/min/1.73m2 02/28/20 15 Unknown Comp Metabolic Ghm573 BUN 17 mg/dL 02/27/2015 Unkn own Comp Metabolic Ftu582 B/C Ratio 16.2 Ratio 02/27/2015 Unk nown Comp Metabolic Hgq075 CALCIUM 9.4 mg/dL 02/27/2015 Unkn own Comp Metabolic Tfc312 ALK PHOS 73 U/L 02/27/2015 Unkn own Comp Metabolic Cof871 AST(SGOT) 18 U/L 02/27/2015 Unkn own Comp Metabolic Cfm775 ALT(SGPT) 17 U/L 02/27/2015 Unkn own Comp Metabolic Bbr096 BILI T 0.8 mg/dL 02/27/2015 Unkn own Comp Metabolic Ayl335 ALBUMIN 3.9 g/dL 02/27/2015 Unkn own Comp Metabolic Hpx829 TPRO 7.2 g/dL 02/27/2015 Unkn own Comp Metabolic Xui870 GLOB 3.3 g/dL 02/27/2015 Unkn own Comp Metabolic Byo338 A/G Ratio 1.2 Ratio 02/27/2015 Unkn own Comp Metabolic Ujj417 Osmo 272 mOsmo 02/27/2015 Unkn own Lipid Ord30 CHOL 197 mg/dL 02/27/2015 Unknown Lipid Ord30 HDL 41.0 mg/dl 02/27/2015 Unknown Lipid Ord30 TRIG 137 mg/dL 02/27/2015 Unknown Lipid Ord30 LDL 129 mg/dL 02/27/2015 Unknown Lipid Ord30 C/HDL 4.8 Ratio 02/27/2015 Unknown Free T4 Bwy709 FREE T4 1.10 ng/dL 02/27/2015 Unknown Vitamin D 25 Oh Knw0238 VITAMIN D, 25 HYDROXY 10.95 ng/mL 02/27/2015 [...] RDW 14.9 % 02/27/20 15 Unknown %Hba1C Moj254 % HbA1c 04142-3 7.3 % 02/26/2015 Unknown %Hba1C Hha240 Gluc Ave 163 mg/dL 02/26/2015 Unknown Procedures Procedure Codes Date ROCEPHIN, PER 250 MG CPT-4: J0696 05/06/2017 TRIAMCINOLONE ACET INJ NOS 10 mg CPT-4: J3301 018 Vital Signs Date Vital 01/14/2021 Blood Pressure 1: 120/56 Code: 8480-6 Heart Rate 1: 117 bpm Height: 5'8" Code: 8302-2 SpO2: 96% Temperature: 36.7 (C) / 98.0 (F) Weight: Code: 90178-1 12/22/2020 Blood Pressure 1: 118/72 Code: 8480-6 BMI: 44.2 Code: 43591-2 Heart Rate 1: 110 bpm Height: 5'8" Code: 8302-2 Respiratory Rate: 20 bpm SpO2: 98% Temperature: 36.0 (C) / 96.8 (F) Weight: 291 lbs Code: 21045-1 08/05/2020 Blood Pressure 1: 142/78 Code: 8480-6 BMI: 50.9 Code: 94634-4 Heart Rate 1: 87 bpm Height: 5'8" Code: 8302-2 SpO2: 98% Temperature: 3 6.2 (C) / 97.1 (F) Weight: 335 lbs Code: 66774-3 03/24/2020 Blood Pressure 1: 132/74 Code: 8480-6 BMI: 51.7 Code: 47536-5 Heart Rate 1: 90 bpm Height: 5'8" Code: 8302-2 Respiratory Rate: 15 bpm SpO2: 95% Temperature: 36.4 (C) / 97.5 (F) Weight: 340 lbs Code: 81120-4 12/26/2018 BMI: 52.6 Code: 91051-1 Heart Rate 1: 80 bpm Hei ght: 5'8" Code: 8302-2 Respiratory Rate: 16 bpm SpO2: 98% Weight: 346 lbs Code: 41488-6 05/25/2018 Blood Pressure 1: 122/68 Code: 8480-6 BMI: 52.6 Code: 06558-6 Heart Rate 1: 69 bpm Height: 5'8" Code: 8302-2 SpO2: 96% Weight: 346 lb s Code: 58776-9 05/06/2017 Blood Pressure 1: 134/76 Code: 8480-6 Heart Rate 1: 84 bpm Height: 5'8" Code: 8302-2 SpO2: 96% Temperature: 36.6 (C) / 97.8 (F) Weight: Code: 42065-0 03/02/2017 Blood Pressure 1: 132/72 Code: 8480-6 BMI: 51.2 Code: 38576-4 Heart Rate 1: 67 bpm Height: 5'8" Code: 8302-2 SpO2: 98% Weight: 337 lb s Code: 87991-6 10/06/2016 Blood Pressure 1: 128/76 Code: 8480-6 BMI: 50.9 Code: 14148-4 Heart Rate 1: 70 bpm Height: 5'8" Code: 8302-2 SpO2: 98% Weight: 335 lb s Code: 09787-1 01/15/2016 Blood Pressure 1: 130/72 Code: 8480-6 BMI: 49.3 Code: 55945-9 Heart Rate 1: 68 bpm Height: 5'8" Code: 8302-2 SpO2: 98% Weight: 324 lb s Code: 79176-0 05/29/2015 Blood Pressure 1: 136/80 Code: 8480-6 BMI: 52.2 Code: 66490-4 Heart Rate 1: 69 bpm Height: 5'8" Code: 8302-2 SpO2: 97% Weight: 343 lb s Code: 77036-9 03/31/2015 Blood Pressure 1: 136/78 Code: 8480-6 BMI: 53.4 Code: 47778-6 Heart Rate 1: 69 bpm Height: 5'8" Code: 8302-2 SpO2: 96% Weight: 351 lb s Code: 52104-0 02/26/2015 Blood Pressure 1: 128/80 Code: 8480-6 BMI: 56.3 Code: 67992-9 Heart Rate 1: 79 bpm Height: 5'8" Code: 8302-2 SpO2: 96% Weight: 370 lb s Code: 64392-4 Functional Status No Functional Status data Reason For Visit Reason For Visit Effective Dates Notes muscle weakness 01/14/2021 Hospital Follow Up 12/22/2020 rash 08/05/2020 diabetes mellitus 03/24/2020 diabetes mellitus 12/26/2018 diabetes mellitus 05/25/2018 fever 05/06/2017 diabetes mellitus 03/02/2017 diabetes mellitus 10/06/2016 diabetes mellitus 01/15/2016 fatigue 05/29/2015 fatigue 03/31/2015 fatigue 02/26/2015 Encounters Encounter Performer Location Codes Date ([id number]) [facility] (NO CHARGE) Diagnosis: Elevated liver enzymes[ICD10: R74.8] [facility] CPT-4: 49257M 01/14/2021 ([id number]) [id number] EST. PATIENT, LEVEL V Diagnosis: Abdominal pain[ICD10: R10.9] Diagnosis: Elevated liver enzymes[ICD10: R74.8] Diagnosis: Biliary stricture[ICD10: K83.1] Diagnosis: Dehydration[ICD10: E86.0] Diagnosis: Other postoperative complication involving digestive system[ICD10: K91.89] Divya Garcia MD, [facility] CPT-4: 20787 ([id number]) [id number] EST. PATIENT, LEVEL III Diagnosis: Superficial phlebitis and thrombophlebitis of left leg[ICD10: I80.02] Deisy Garcia MD, [facility] CPT-4: 58690 08/06/19 ([id number]) PREV VISIT EST AGE 40-64 Diagnosis: Encounter for general adult medical examination with abnormal findings[ICD10: Z00.01] Divya Garcia MD, [facility] CPT-4: 24818 03/24/2020 ([id number]) 09874 EST. PATIENT, LEVEL IV Diagnosis: Type 2 diabetes mellitus without complications[ICD10: E11.9] Diagnosis: Mastodynia[ICD10: N64.4] Diagnosis: Pain in left knee[ICD10: M25.562] Diagnosis: Bilateral primary osteoarthritis of knee[ICD10: M17.0] Divya Garcia MD, [facility] CPT-4: 60410 12/26/2018 ([id number]) PREV VISIT EST AGE 40-64 Diagnosis: Encounter for general adult medical examination with abnormal findings[ICD10: Z00.01] Divya Garcia MD, [facility] CPT-4: 03772 05/25/2018 [id number] EST. PATIENT, LEVEL III Diagnosis: Other malaise[ICD10: R53.81] Diagnosis: Fever, unspecified[ICD10: R50.9] Diagnosis: Acute laryngopharyngitis[ICD10: J06.0] Norma Terrell MD, [facility] CPT-4: 94664 05/06/2017 ([id number]) 30400 EST. PATIENT, LEVEL IV Diagnosis: Type 2 diabetes mellitus without complications[ICD10: E11.9] Diagnosis: Nontoxic multinodular goiter[ICD10: E04.2] Diagnosis: Morbid (severe) obesity due to excess calories[ICD10: E66.01] Diagnosis: Nonscarring hair loss, unspecified[ICD10: L65.9] Divya Garcia MD, [facility] CPT-4: 46853 03/02/2017 ([id number]) PREV VISIT EST AGE 40-64 Diagnosis: Encounter for general adult medical examination with abnormal findings[ICD10: Z00.01] NAKUL Neely MD CPT-4: 75901 10/06/2016 ([id number]) [id number] EST. PATIENT, LEVEL IV Diagnosis: Type 2 diabetes mellitus without complications[ICD10: E11.9] Diagnosis: Morbid (severe) obesity due to excess calories[ICD10: E66.01] Diagnosis: Vitamin D deficiency, unspecified[ICD10: E55.9] Diagnosis: Nontoxic multinodular goiter[ICD10: E04.2] Divya Garcia MD, NAKUL CPT-4: 07328 01/15/2016 ([id number]) 82019 EST. PATIENT, LEVEL III Diagnosis: Type 2 diabetes mellitus without complications[ICD10: E11.9] NAKUL Neely MD CPT-4: 95008 05/29/2015 ([id number]) [id number] EST. PATIENT, LEVEL III Diagnosis: Type 2 diabetes mellitus without complications[ICD10: E11.9] Diagnosis: Vitamin D deficiency, unspecified[ICD10: E55.9] Divya Garcia MD, NAKUL CPT-4: 33776 03/31/2015 ([id number]) PREV VISIT NEW AGE 40-64 Diagnosis: Encounter for general adult medical examination with abnormal findings[ICD10: Z00.01] [facility] CPT-4: 63269 02/26/2015 Plan of Care Planned Activity Notes Codes Status Date Visit Plan: Admit to hospital for liver abscess evaluation, treatment of dehydration, . 01/14/2021 Appointment: Divya Garcia [facility]Ptel: [facility] [place] (15 min) Moderate 01/14/2021 Patient Education: Patient Medication Summary Completed 01/14/2021 Appointment: Deisy Lowe WPtel: [phone] [facility] [place] (30 min) Complex 01/09/2021 Patient Education: Patient Medication Summary Completed 12/25/2020 [...] 12/24/2020. 12/22/2020 Appointment: Divya Garcia [facility]el: [phone] [place] [place] (15 min) Moderate 12/22/2020 Patient Education: Patient Medication Summary Completed 12/22/2020 Appointment: Divya Garcia WPtel: [phone] [facility] [place] (15 min) Moderate 11/06/2020 Appointment: Div[facility] Garcia [facility]el[phone] [place] [place] (15 min) Moderate 10/15/2020 Appointment: Divya Garcia [facility]el[phone] [place] [place] (15 min) Moderate 09/15/2020 Visit Plan: [...] today. 08/05/2020 [facility]: [phone] [place] (30 min) Complex 08/05/2020 Patient Education: [...] sleep. 03/24/2020 Appointment: Divya Garcia [facility]Ptel: [phone] [place] (15 min) Moderate 03/24/2020 Patient Education: Patient Medication Summary Completed 03/24/2020 Patient Education: Diabetes Completed 03/24/2020 Appointment: Divya Garcia [facility]Ptel: [phone] [place] [place] (15 min) Moderate 03/06/2020 Appointment: Divya Garcia [facility]Ptel: [phone] [place] [place] (15 min) Moderate 02/06/2019 Visit Plan: [...] the pharmacy. 12/26/2018 Appointment: Div[facility] Garcia [facility]el: [phone] [place] (15 min) Moderate 12/26/2018 Patient Education: Patient Medication Summary Completed 12/26/2018 Patient Education: Diabetes Completed 12/26/2018 Care Plan: Unilateral DIAGNOSTICMAMMOGRAPHYDIGITAL [facility] : 12886-7 Pending 12/26/2018 Patient Education: Patient Medication Summary Completed 12/14/2018 Appointment: Divya Garcia WPtel: [address] [place], [place] [id number] (15 min) Moderate 12/13/2018 [...] Free T4 05/25/2018 Appointment: Divya Garcia WPtel: [facility] (15 min) Moderate 05/25/2018 Patient Education: Patient Medication Summary Completed 05/25/2018 Patient Education: Obesity Completed 0 05/25/2018 Appointment: Divya Garcia WPtel: [facility] (15 min) Moderate 07/11/2017 Appointment: Divya Garcia WPtel: [facility] [place] (15 min) Moderate 06/28/2017 Visit Plan: [...] spray. 05/06/2017 Appointment: Norma Isbell WPtel: [phone] [facility] [place] (15 min) Moderate 05/06/2017 Patient Education: Patient [...] ferritin, ESR 03/02/2017 Appointment: Divya Garcia [facility]Ptel: [phone] [place] (15 min) Moderate 03/02/2017 Patient Education: Patient Medication Summary Completed 03/02/2017 Patient Education: Obesity Completed 1 05/02/2016 Care Plan: Iron Pending 03/02/2017 Appointment: Divya Garcia [facility]Ptel: [phone] [place] (15 min) Moderate 01/31/2017 Visit Plan: [...] patient. 10/06/2016 Appointment: Divya Garcia WPtel: [phone] [facility] [place] (15 min) Moderate 10/06/2016 Patient Education: Patient Medication Summary Completed 10/06/2016 Patient Education: Obesity Completed 0 10/06/2016 Appointment: Divya Garcia WPtel: [phone] [facility] [place] (15 min) Moderate 09/15/2016 Appointment: Divya Garcia WPtel: [phone] [facility] [place] (15 min) Moderate 08/16/2016 Appointment: Divya Garcia WPtel: [phone] [facility] [place] (15 min) Moderate 07/15/2016 Patient Education: Patient Medication Summary Completed 01/27/2016 Care Plan: SCREENINGMAMMOGRAPHYDIGITAL L [facility] : 93442-3 Pending 01/27/2016 Visit Plan: Diabetes Mellitus - [...] -check labs 01/15/2016 Appointment: Divya Garcia [facility]Ptel: [phone] [facility] [place] (15 min) Moderate 01/15/2016 Patient Education: Patient Medication Summary Completed 01/15/2016 Patient Education: Obesity Completed 0 01/15/2016 Appointment: Divya Garcia WPtel: [phone] [facility] [place] [place] (15 min) Moderate 08/26/2015 Visit Plan: [...] or belviq 05/29/2015 Appointment: Divya Garcia WPtel: [phone] [facility] [place] (15 min) Moderate 05/29/2015 Patient Education: [...] less controlled. 03/31/2015 Appointment: Divya Garcia [facility]Ptel: [phone] [place] (15 min) Moderate 03/31/2015 Patient Education: [...] - check glucose levels. 02/26/2015 Appointment: Divya Garciatel: [phone] [place] (S) New Patient 02/26/2015 Patient Education: Patient Medication Summary Completed 02/26/2015 Instructions Comment . Admit to hospital for liver abscess e valuation, treatment of dehydration, . go to day surgery at [facility] for IV fluids at 0800. [...]
[2021-01-23] MEDS ORDERED: SENNA W/DOCUSATE (SENOKOT S) TABLET PO PRN (12:15)
[2021-01-23] MEDS ORDERED: diphenhydrAMINE 50 MG/ML INJ (BENADRYL) IVP PRN (12:15)
[2021-01-23] MEDS ORDERED: ACETAMINOPHEN 325 MG TABLET PO PRN (12:15)
[2021-01-23] MEDS ORDERED: CATHETER FLUSH 10 ML SYR IV PRN (12:15)
[2021-01-23] MEDS ORDERED: PROMETHAZINE INJ 25 MG/ML (PHENERGAN) AMP IM PRN (12:15)
--- NOTE | 2021-01-23 12:18 | PM&R Post Admission Assessment ---
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 Currently patient is very weak and is maintained on meropenem and doxycycline and required central line placement due to inability for PICC line or midline to be placed due to body habitus. [place] port indicated and will talk to Dr. ANDRADE about that. Patient is very weak and will require aggressive therapy in order to regain independent function. PCP previous assessment: ACUTE INJURY HEPATITIS ELEVATED ALKALINE PHOSPHATASE LEUKOCYTOSIS URINARY TRACT INFECTION, SEPSIS HYPERBILIRUBINEMIA WEIGHT LOSS MALAISE ANOREXIA NAUSEA EMESIS WEAKNESS AND FALLING EPISODES DIET CONTROLLED DIABETES MELLITUS ANEMIA IRON DEFICIENCY HYPOKALEMIA ACUTE INJURY HEPATITIS WITH PERSISTENTLY ELEVATED ALKALINE PHOSPHATASE, LEUKOCYTOSIS AND HYPERBILIRUBINEMIA - DISCUSSED CASE WITH DR. ANDRADE - CASE DISCUSSED WITH DR. SANTIAGO - HE IS WONDERING ABOUT [facility] -- HE REQUESTED IMAGING TO BE CLOUDED SO HE COULD REVIEW HER CASE, MAKE RECOMMENDATIONS AND HE HAS INDICATED HE WILL CALL NEXT WEEK WHEN BRIANA IS ON INPT REHAB FOR HER TO BE SEEN IN HIS OFFICE. HE DID NOT MAKE ANY FURTHER RECOMMENDATIONS UNTIL HE HAS REVIEWED HER PERTINENT IMAGING STUDIES. - APPRECIATE HIS INPUT WEIGHT LOSS DUE TO ANOREXIA AND NAUSEA/EMESIS - - DIETARY CONSULT - STARTED REGLAN AT 5MG IV TID - ADDED SCOPOLAMINE PATCH - IMPROVED NAUSEA - PRN ZOFRAN UTI WITH ENTEROCOCCUS, SEPSIS WITH ECOLI - PT ON MEROPENEM - MONITOR FURTHER CULTURE RESULTS - YEAST ON URINE - PT TO CONTINUE WITH DIFLUCAN FOR A FEW MORE DAYS - WILL HAVE TO CLOSELY MONITOR LIVER PANEL - ADDED DOXYCYCLINE PO - PT CLOSE TO END OF TREATMENT MALAISE, WEAKNESS AND FALLING EPISODES - CONSULT TO PHYSICAL AND OCCUPATIONAL THERAPY - IRF PLACEMENT TODAY DIET CONTROLLED DIABETES MELLITUS - AGAIN -CONSULT DIETARY, MONITOR FSBS ONCE TAKING IN MORE PO ANEMIA - REPEAT LABS TODAY SHOWED 2 GRAM BLOOD LOSS OVER THE PAST 2 DAYS. - BLOOD TRANSFUSION TODAY 1 UNIT OF BLOOD - PT WILL NEED IV IRON TOMORROW HYPOKALEMIA - REPLENISHED WITH IV POTASSIUM ABDOMINAL PAIN AND BACK PAIN - STOPPED HYDROCODONE THAT MAY BE CONTRIBUTING TO HER CYCLICAL VOMITING - USE TORADOL FOR PAIN DC'D CABALLERO DVT PROPHYLAXIS WITH SCD'S AND LOVENOX GI PROPHYLAXIS WITH PROBIOTICS AND PROTONIX. Past Pncjkzt-Vinotp-Jqksao Hx Past Med/Social Hx: Reviewed Nursing Past Med/Soc Hx, Reviewed and Corrections made Patient Social History Marrital Status: single Employed/Student: employed Alcohol Use: Denies Use Smoking Status: Never a Smoker Immunizations Up To Date Date of Influenza Vaccine: Dec 24, 2010 Seasonal Allergies Seasonal Allergies: No Past Medical History Surgeries: Breast, Gallbladder, Orthopedic Currently Using CPAP: No Currently Using BIPAP: No Cardiac: Hypertension Sexually Transmitted Disease: No HIV/AIDS: No Musculoskeletal: Arthritis Endocrine: Diabetes, Non-Insulin dep Loss of Vision: Denies Hearing Impairment: Denies Cancer: Breast Did You Recieve Any Treatments: Yes What Type of Treatment Did You: Chemotherapy, Radiation, Surgical Intervention History of Blood Disorders: No Adverse Reaction to Blood Heller: No Family History Heart Disease, Cancer, Hypertension, Other Conditions/Hx Prior Level of Function Bed Mobility: 6 Transfers: 6 Gait: 6 Stairs: 6 Indoor Mobility (Ambulation): Independent Stairs: Independent Self Care: Independent Functional Cognition: Independent Eatin (Per pt report, IND with breakfast.) Oral Hygiene: 5 (based on clincial judgment.) Shower/Bathe Self: 1 (Assist x2 required in stand.) Upper Body Dressin (set up with dust puller night gown.) Lower Body Dressin (Pt able to thread BLEs into pants, assist with pant hi ke. Assist x2 required in stand.) On/Off Footwear: 1 (total assist donning gripper socks.) Toileting Hygiene: 1 (Assist x2 required for clothing management.) PM&R Allergy/Meds/Data Review Allergies Coded Allergies: valacyclovir HCl (Verified Allergy, Unknown, 01/14/21) Home Medications Scheduled L. Acidophilus/L.bulgaricus (Lactobacillus Tablet), 2 EA PO TIDWM, (Reported) Pantoprazole Sodium (Pantoprazole Sodium), 40 MG PO HS, (Reported) Polyethylene Glycol 3350 (Miralax), 17 GM PO BID, (Reported) Sennosides/Docusate Sodium (Sm Stool Softener-Laxative Tab), 1 EA PO BID, (Reported) Sucralfate (Sucralfate), 1 GM PO QID, (Reported) Scheduled PRN Hydrocodone/Acetaminophen (Hydrocodone-Acetamin 7.5-325), 1 EACH PO QID PRN for PAIN-MODERATE (5-7), (Reported) Ondansetron (Ondansetron Odt), 4 MG PO Q8H PRN for NAUSEA/VOMITING-1ST LINE, (Reported) Current Medications Current Medications Reviewed Review of Systems Constitutional: see HPI, malaise, weakness EENTM: no symptoms reported Respiratory: no symptoms reported Cardiovascular: no symptoms reported Gastrointestinal: no symptoms reported Genitourinary: no symptoms reported Musculoskeletal: no symptoms reported Skin: no symptoms reported Psychiatric/Neurological: Anxiety, Depressed All Other Systems Reviewed Negative Unless Noted: Yes Physical Exam Physical Exam Vital Signs Capillary Refill : Height, Weight, BMI Height: '" Weight: lbs. oz. kg; 44.45 BMI Method:Stated General Appearance: No Apparent Distress, WD/WN, Chronically ill, Obese, Other (Very debilitated) Eyes: Bilateral Eye Normal Inspection, Bilateral Eye PERRL HEENT: PERRL/EOMI, Normal ENT Inspection, Pharynx Normal Neck: Full Range of Motion, Normal Inspection, Non Tender, Supple, Carotid Bruit Respiratory: Chest Non Tender, Lungs Clear, Normal Breath Sounds, No Accessory Muscle Use, No Respiratory Distress Cardiovascular: Regular Rate, Rhythm, No Edema, No Gallop, No JVD, No Murmur, Normal Peripheral Pulses Gastrointestinal: Normal Bowel Sounds, No Organomegaly, No Pulsatile Mass, Non Tender, Soft Back: Normal Inspection, No CVA Tenderness, No Vertebral Tenderness Extremity: Normal Capillary Refill, Normal Inspection, Normal Range of Motion, Non Tender, No Calf Tenderness, No Pedal Edema Neurologic/Psychiatric: Alert, Oriented x3, No 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, 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, Abnormal Gait, Depressed Affect, Motor Weakness (Generalized 3/5 all extremities) Skin: Normal Color, Warm/Dry Lymphatic: No Adenopathy PM&R Medical Assessment & Plan REHAB/MEDICAL ASSESSMENT AND PLAN: REHAB IMPAIRMENT GROUP: Myopathy ETIOLOGIC DIAGNOSIS: Myopathy The comorbidities that impact the patients function and/or functional outcome by: Increased BMI, severe debility, concurrent infections REHAB PLAN: The patient is being admitted to our comprehensive inpatient rehabilitation facility and can tolerate the intensity of service consisting of at least: 180 minutes of therapy a day, 5 out of 7 days a week Rehab treatment will consist of: PT and OT will focus on regaining ambulatory function along with independence in ADLs in order to return back to independent living The patient/family has a good understanding of our discharge process and will benefit from an interdisciplinary inpatient rehabilitation program. The patient has potential to make improvement and is in need of at least two of the following multidisciplinary therapies including but not limited to physical, occupational, speech, and prosthetics and orthotics. Additionally the patient will need services from respiratory, nutritional services, wound care, psychology, etc. (Customize this to each patient). Given the patients complex condition and risk of further medical complications, rehabilitation services cannot be safely or effectively provided at a lower level of care such as a alf facility. BARRIERS TO DISCHARGE: Severe debility ESTIMATED LOS: 10 days DISPOSITION: Home RELEVANT CHANGES SINCE PREADMISSION SCREENING: I have compared the patients medical and functional status at the time of the preadmission screening and there are: No changes PROGNOSIS: Fair REHABILITATION GOALS: 1. PT and OT will focus on regaining ambulatory function along with independence in ADLs in order to return back to independent living All the above goals were reviewed with the patient and he/she is in agreement. By signing this document, I acknowledge that I have personally performed a full physical examination on this patient within 24 hours of admission to this inpatient rehabilitation facility and have determined the patient to be able to tolerate the above course of treatment at an intensive level for a reasonable period of time. I will be completing a detailed individualized Plan of Care for this patient by day #4 of the patients stay based upon the Preadmission Screen, the Post-Admission Evaluation, and the therapy evaluations. Admission Dx/Comorbidities: (1) Myopathy ICD Codes: G72.9 - Myopathy, unspecified Assessment/Plan Assessment and Plan Assess & Plan/Chief Complaint Assessment: Acute myopathy ACUTE INJURY HEPATITIS ELEVATED ALKALINE PHOSPHATASE LEUKOCYTOSIS URINARY TRACT INFECTION, SEPSIS HYPERBILIRUBINEMIA WEIGHT LOSS MALAISE ANOREXIA NAUSEA EMESIS WEAKNESS AND FALLING EPISODES DIET CONTROLLED DIABETES MELLITUS ANEMIA IRON DEFICIENCY HYPOKALEMIA Plan: Aggressive physical therapy Pain control Monitor weight loss RUSSEL MAYERS DO Jan 23, 2021 12:18
[2021-01-23] MEDS: fentaNYL INJ 100 MCG/2 ML AMP IVP PRN ×4 (12:57→23:08)
[2021-01-23] MEDS: LACTOBACILLUS ACIDOPHILUS (PROBIOTIC) CAPSULE PO SCH ×3 (13:00→18:58)
[2021-01-23] MEDS ORDERED: NS IV 500 ML 500 ML ONE ×3 (13:10→17:11)
[2021-01-23] MEDS: SIMETHICONE 80 MG (MYLICON) CHEW PO SCH ×3 (13:11→23:14)
--- NOTE | 2021-01-23 14:03 | Physical Therapy Progress Note ---
Therapy Progress Note Patient is getting blood this afternoon. She is willing to do PT but not able at this time. Will resume tomorrow. JENARO NOLAN PT Jan 23, 2021 14:03
[2021-01-23] MEDS: MEROPENEM 1,000 MG in WATER (STERILE) FOR INJECTION 20 ML IV SCH ×2 (14:21→21:57)
[2021-01-23] MEDS: ALBUMIN 25% 25 GM/100 ML 100 ML IV SCH ×2 (14:21→22:06)
--- NOTE | 2021-01-23 14:25 | Occ Therapy Progress Note ---
Therapy Progress Note Pt is getting a blood transfusion this afternoon. Pt is unable to complete OT at this time, pt on hold per nursing. OT will resume next available date. MELINA TREJO OT Jan 23, 2021 14:25
[2021-01-23] MEDS: METOCLOPRAMIDE INJ 10 MG/2 ML (REGLAN) IVP SCH ×2 (14:41→21:51)
[2021-01-23] MEDS: KETOROLAC 30 MG/ML VIAL IVP PRN ×2 (14:41→21:55)
[2021-01-23] MEDS: NS W/KCL 20 MEQ/L 1,000 ML IV SCH (16:06)
[2021-01-23] MEDS ORDERED: FUROSEMIDE 40 MG/4 ML INJ (LASIX) ONE (17:20)
[2021-01-23] MEDS: DOXYCYCLINE 100 MG (VIBRAMYCIN) TABLET PO SCH (17:34)
[2021-01-23] MEDS ORDERED: KCL 20 MEQ TAB (K-DUR) PO SCH (18:00)
[2021-01-23 19:17] VITALS: BP 146/88
[2021-01-23 20:00] VITALS: BP 131/72
[2021-01-23] MEDS ORDERED: DOCUSATE SODIUM 100 MG (COLACE) CAP PO SCH (21:00)
[2021-01-23] MEDS ORDERED: ENOXAPARIN 40 MG/0.4 ML (LOVENOX) SYR SC SCH (21:00)
[2021-01-23] MEDS: ONDANSETRON 4 MG/2 ML (SDV) Z0FRAN IVP PRN (21:46)
[2021-01-23] MEDS: polyethylene glycoL POWDER 17 GM (MIRALAX) PACK PO SCH (22:21)
[2021-01-23] MEDS: LORazepam INJ 2 MG/ML (ATIVAN) VIAL IVP PRN (23:07)
[2021-01-23] MEDS: SENNA W/DOCUSATE (SENOKOT S) TABLET PO SCH (23:14)
[2021-01-24] MEDS: ONDANSETRON 4 MG/2 ML (SDV) Z0FRAN IVP PRN ×3 (01:34→17:19)
[2021-01-24] MEDS: fentaNYL INJ 100 MCG/2 ML AMP IVP PRN ×4 (01:35→21:22)
[2021-01-24] MEDS: KETOROLAC 30 MG/ML VIAL IVP PRN (05:23)
[2021-01-24] MEDS: NS W/KCL 20 MEQ/L 1,000 ML IV SCH ×3 (05:23→23:29)
[2021-01-24] MEDS: MEROPENEM 1,000 MG in WATER (STERILE) FOR INJECTION 20 ML IV SCH ×3 (05:23→21:22)
[2021-01-24] MEDS: METOCLOPRAMIDE INJ 10 MG/2 ML (REGLAN) IVP SCH ×3 (05:24→21:21)
[2021-01-24] MEDS: ALBUMIN 25% 25 GM/100 ML 100 ML IV SCH ×3 (05:24→21:40)
[2021-01-24 06:01] LABS: BASOPHILS % (AUTO) 0 % (0-10); EOSINOPHILS % (AUTO) 0 % (0-10); HEMATOCRIT 31 % (35-52); HEMOGLOBIN 9.9 g/dL (11.5-16.0); LYMPHOCYTES # (AUTO) 0.7 10^3/uL (1.0-4.0); LYMPHOCYTES % (AUTO) 7 % (12-44); MEAN CORPUSCULAR HEMOGLOBIN 28 pg (25-34); MEAN CORPUSCULAR HGB CONC 32 g/dL (32-36); MEAN CORPUSCULAR VOLUME 89 fL (80-99); MEAN PLATELET VOLUME 11.4 fL (9.0-12.2); MONOCYTES # (AUTO) 0.7 10^3/uL (0.0-1.0); MONOCYTES % (AUTO) 8 % (0-12); NEUTROPHILS # (AUTO) 7.8 10^3/uL (1.8-7.8); NEUTROPHILS % (AUTO) 84 % (42-75); PLATELET COUNT 248 10^3/uL (130-400); WHITE BLOOD COUNT 9.4 10^3/uL (4.3-11.0)
[2021-01-24 06:11] LABS: POTASSIUM 3.9 MMOL/L (3.6-5.0)
[2021-01-24 06:13] LABS: CALCIUM 8.8 MG/DL (8.5-10.1)
[2021-01-24 06:14] LABS: TOTAL PROTEIN 6.1 GM/DL (6.4-8.2)
[2021-01-24 06:16] LABS: BILIRUBIN,TOTAL 1.5 MG/DL (0.1-1.0)
[2021-01-24] MEDS: LORazepam INJ 2 MG/ML (ATIVAN) VIAL IVP PRN ×2 (06:16→21:15)
[2021-01-24 06:18] LABS: CREATININE SERUM 0.53 MG/DL (0.60-1.30)
[2021-01-24 08:00] VITALS: BP 146/70
--- NOTE | 2021-01-24 08:07 | PM&R Progress Note ---
Subjective HPI/CC On Admission Date Seen by Provider: Jan 24, 2021 Time Seen by Provider: 12:00 Subjective/Events-last exam Patient had been doing pretty well until sustaining a fall in the bathroom It took a Stephen lift and 4 people to get her up Dr. Garcia ordered IV Lasix and iron infusion Vitamin D was also started Alk phos remains high at 495 Review of Systems General: Fatigue, Malaise Neurological: Weakness, Incoordination Objective Exam Vital Signs Vital Signs Date Time Temp Pulse Resp B/P (MAP) Pulse Ox O2 Delivery O2 Flow Rate FiO2 01/24/21 20:30 Room Air 01/24/21 20:00 37.0 114 20 131/79 (96) 91 01/24/21 10:15 0.00 Capillary Refill : General Appearance: No Apparent Distress, WD/WN, Chronically ill, Obese, Other (Very debilitated) HEENT: PERRL/EOMI, Normal ENT Inspection, Pharynx Normal Neck: Full Range of Motion, Normal Inspection, Non Tender, Supple, Carotid Bruit Respiratory: Chest Non Tender, Lungs Clear, Normal Breath Sounds, No Accessory Muscle Use, No Respiratory Distress Cardiovascular: Regular Rate, Rhythm, No Edema, No Gallop, No JVD, No Murmur, Normal Peripheral Pulses Gastrointestinal: Normal Bowel Sounds, No Organomegaly, No Pulsatile Mass, Non Tender, Soft Back: Normal Inspection, No CVA Tenderness, No Vertebral Tenderness Extremity: Normal Capillary Refill, Normal Inspection, Normal Range of Motion, Non Tender, No Calf Tenderness, No Pedal Edema Neurologic/Psychiatric: Alert, Oriented x3, 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 FIM Transfers Therapy Code Descriptions/Definitions Functional [place] Measure: 0=Not Assessed/NA 4=Minimal Assistance 1=Total Assistance 5=Supervision or Setup 2=Maximal Assistance 6=Modified [place] 3=Moderate Assistance 7=Complete IndependenceSCALE: Activities may be completed with or without assistive devices. 6-Ymnghxbcdd-ugdigie completes the activity by him/herself with no assistance from a helper. 5-Set-up or Clean-up Assistance-helper sets up or cleans up; patient completes activity. [place] assists only prior to or following the activity. 4-Supervision or Touching Assistance-helper provides verbal cues and/or touching/steadying and/or contact guard assistance as patient completes activity. Assistance may be provided throughout the activity or intermittently. 3-Partial/Moderate Assistance-helper does LESS THAN HALF the effort. [place] lifts, holds or supports trunk or limbs, but provides less than half the effort. 2-Substantial/Maximal Assistance-helper does MORE THAN HALF the effort. [place] lifts or holds trunk or limbs and provides more than half the effort. 2-Dwkjcrizt-dhvznp does ALL the effort. Patient does none of the effort to complete the activity. Or, the assistance of 2 or more helpers is required for the patient to complete the activity. If activity was not attempted, code reason: 7-Patient Refused. 9-Not Applicable-not attempted and the patient did not perform the activity before the current illness, exacerbation or injury. 10-Not Attempted due to Environmental Limitations-(lack of equipment, weather restraints, etc.). 88-Not Attempted due to Medical Conditions or Safety Concerns. Roll Left to Right (QC): 3 Sit to Lying (QC): 3 Sit to Stand (QC): 3 Chair/Glh-px-Tyjdw Xfer(QC): 4 Car Transfer (QC): 88 Gait Training Does the Patient Walk?: Yes Walk 10 feet (QC): 4 Walk 50 ft with 2 Turns(QC): 88 Walk 150 ft (QC): 88 Walking 10ft/uneven surface-QC: 88 Gait Assistive Device: FWW Wheelchair Training Does the Pt Use a Wheelchair?: Yes Distance: 10' Wheel 50 ft with 2 turns (QC): 88 Wheel 150 ft (QC): 88 Type of Wheelchair: Manual Stair Training 1 Step (curb) (QC): 88 4 Steps (QC): 88 12 Steps (QC): 88 Balance Picking up an Object (QC): 88 ADL-Treatment Eating (QC): 6 (Per pt report, IND with breakfast.) Oral Hygiene (QC): 5 (based on clincial judgment.) Shower/Bathe Self (QC): 1 (Assist x2 required in stand.) Upper Body Dressing (QC): 5 (set up with dust puller night gown.) Lower Body Dressing (QC): 1 (Pt able to thread BLEs into pants, assist with pant hike. Assist x2 required in stand.) On/Off Footwear (QC): 1 (total assist donning gripper socks.) Toileting Hygiene (QC): 1 (Assist x2 required for clothing management.) Assessment/Plan Assessment and Plan Assess & Plan/Chief Complaint Assessment: Acute myopathy ACUTE INJURY HEPATITIS ELEVATED ALKALINE PHOSPHATASE LEUKOCYTOSIS URINARY TRACT INFECTION, SEPSIS HYPERBILIRUBINEMIA WEIGHT LOSS MALAISE ANOREXIA NAUSEA EMESIS WEAKNESS AND FALLING EPISODES DIET CONTROLLED DIABETES MELLITUS ANEMIA IRON DEFICIENCY HYPOKALEMIA Plan: Aggressive physical therapy Pain control Monitor weight loss 01/24/2021: Fall risk Monitor closely (1) Myopathy RUSSEL MAYERS DO Jan 24, 2021 08:07
--- NOTE | 2021-01-24 08:07 | Individualized Plan of Care ---
Individualized Plan of Care Rehab Nursing IPOC Order Admission Date Jan 23, 2021 at 10:50 Current Orders Orders Admission Order(Inpt,Obs,Sdc) (01/23/21 10:19) Vital Signs: Per Unit Policy ( 08,16,00 (01/23/21 10:19) Giovanni Whitman (01/23/21 10:19) Sequential Compression Device .admit (01/23/21 10:19) Stars Specialist-Inpt Rehab Con (01/23/21 10:19) Rehab Nursing Orders-Ipoc (01/23/21 10:19) Physical Therapy Rehab Orders (01/23/21 10:19) Occupational Therapy Rehab Ord (01/23/21 10:19) Speech Therapy Rehab Orders (01/23/21 10:19) Cbc With Automated Diff (01/24/21 06:00) Comprehensive Metabolic Panel (01/24/21 06:00) Precautions (Aru) (01/23/21 10:19) Rehab-Intensity Of Therapy (01/23/21 10:19) Initiate Admission Nursing Pro .admission (01/23/21 10:19) Alprazolam Tablet (Xanax Tablet) (01/23/21 10:30) Calcium Carbonate Chew Tablet (Antacid C (01/23/21 10:30) Diphenhydramine Tablet (Benadryl Tablet) (01/23/21 10:30) Docusate Sodium Capsule (Colace Capsule) (01/23/21 21:00) Docusate Sodium Capsule (Colace Capsule) (01/23/21 10:30) Bisacodyl Suppository (Dulcolax Supposit (01/23/21 10:30) Lactulose Oral Solution (Enulose Oral So (01/23/21 10:30) Na Phos/Na Biphos Enema (Fleet Enema John (01/23/21 10:30) Guaifenesin/Codeine Syrup (Robitussin Ac (01/23/21 10:30) Loperamide Tablet (Imodium Tablet) (01/23/21 10:30) Melatonin Tablet (Melatonin Tablet) (01/23/21 10:30) Polyethylene Glycol Powder Pkt (Miralax (01/23/21 21:00) Ondansetron Oral Dissolve Tab (Zofran (01/23/21 10:30) Senna S Tablet (Senokot S Tablet) (01/23/21 21:00) Transfer - Bed/Room/Location (01/23/21 11:31) Code/Resuscitation (01/23/21 12:15) Catheter(Urinary) Discontinue (01/23/21 12:15) Heating Pad (01/23/21 12:15) Incentive Spirometry (Nursing) Q2H (01/23/21 12:15) Vital Signs: Special (Order) (01/23/21 12:15) General/Regular (01/23/21 Lunch) Albumin 25% 25 Gm/100 Ml (Albumin 25% 25 (01/23/21 14:00) Diphenhydramine Injection (Benadryl Inje (01/23/21 12:15) Docusate Sodium Capsule (Colace Capsule) (01/24/21 09:00) Doxycycline Hyclate Tablet (Vibramycin T (01/23/21 17:00) Fluconazole Tablet (Diflucan Tablet) (01/24/21 09:00) Ketorolac Injection (Toradol Injection) (01/23/21 12:15) Lorazepam Injection (Ativan Injection) (01/23/21 12:15) Lactobacillus Acidophilus Cap (Acidophil (01/23/21 13:00) Meropenem (Merrem 1000 Mg) (01/23/21 13:30) Metoclopramide Injection (Reglan Injecti (01/23/21 14:00) Ns W/Kcl 20 Meq/L (Ns Iv W/Kcl 20 Meq/L) (01/23/21 12:15) Ondansetron Injection (Zofran Injectio (01/23/21 12:15) Potassium Chloride (Tablet) (K Dur Table (01/23/21 18:00) Senna S Tablet (Senokot S Tablet) (01/23/21 12:15) Simethicone Tablet (Mylicon Chewable Tab (01/23/21 13:00) Sodium Chloride Flush (Catheter Flush Sy (01/23/21 12:15) Acetaminophen Tablet/Caplet (Tylenol T (01/23/21 12:15) Fentanyl Inj (Sublimaze Injection) (01/23/21 12:15) Consult General Surgery (01/23/21 12:15) Dietary Consult (01/23/21 12:15) Pantoprazole Tablet (Protonix Tablet) (01/24/21 09:00) Promethazine Injection (Phenergan Injec (01/23/21 12:15) Ns Iv 500 Ml (Sodium Chloride 0.9%) (01/23/21 13:15) Ns Iv 500 Ml (Sodium Chloride 0.9%) (01/23/21 17:11) Ns Iv 500 Ml (Sodium Chloride 0.9%) (01/23/21 13:10) Patient Visit (01/23/21 ) Exercise Therap, Ea 15 Min (01/23/21 ) Functional Activities, Ea 15 (01/23/21 ) Furosemide Injection (Lasix Injection) (01/23/21 17:20) Patient Visit (01/24/21 ) Functional Activities, Ea 15 (01/24/21 ) Ergocalciferol Capsule (Vitamin D2 Capsu (01/31/21 09:00) Ergocalciferol Capsule (Vitamin D2 Capsu (01/24/21 09:45) Cholecalciferol Capsule/Tablet (Vitamin (01/25/21 07:00) Iron Dextran Injection (Infed Injection) (01/24/21 09:45) Iron Dextran Injection (Infed Injection) (01/24/21 09:45) Albuterol Pre-Mix Nebs (Rt) (Proventil (01/24/21 09:45) Diphenhydramine Injection (Benadryl Inje (01/24/21 09:45) Epinephrine 1 Mg Injection (Adrenalin I (01/24/21 09:45) Hydrocortisone Injection (Solu-Cortef In (01/24/21 09:45) Infed Nursing Communication Or (01/24/21 ) Ns Iv 500 Ml (Sodium Chloride 0.9%) (01/24/21 09:45) Furosemide Injection (Lasix Injection) (01/24/21 09:45) Cbc No Diff (01/25/21 05:00) Comprehensive Metabolic Panel (01/25/21 05:00) Magnesium (01/25/21 05:00) Phosphorus (01/25/21 05:00) Pantoprazole Tablet (Protonix Tablet) (01/24/21 21:00) Potassium Cl 10meq/50ml Ivpb (Kcl 10 Meq (01/24/21 11:15) Lactobacillus/Bulgaricus Granu (Lactinex (01/24/21 18:00) Bisacodyl Suppository (Dulcolax Supposit (01/24/21 11:15) Nursing Communication (Order) ONCE (01/24/21 11:10) Metoclopramide Injection (Reglan Injecti (01/24/21 11:30) Ergocalciferol Capsule (Vitamin D2 Capsu (01/24/21 11:30) Furosemide Injection (Lasix Injection) (01/24/21 11:30) Facial Bones, 2 Views Or Less (01/25/21 18:58) Rehab Nursing Orders: Ongoing Assess. of Function Status, Bladder Management, Bladder Scan, Bladder Training, Bowel Management, Bowel Training, Disease Management & Educaiton, DVT Prophylaxis, Fall Prevention, Fluid/Electrolyte/Nutrition Mgmt, Infection Prevention, Medication Management & Education, Management of Risks & Complications, Management of Skin Intergrity, Nutrition Management, Pain Management, Patient/Family Support, Safety Management Intensity of Therapy to be met Patient to be seen: Min.3h per day/5 of 7d PT IPOC Problem List: Activity Tolerance, Functional Strength, Safety, Balance, Gait, Transfer, Bed Mobility, ROM Treatment Plan: Continue Plan of Care Bed Mobility, Education, Functional Activity Altaf, Functional Strength, Group Therapy, Gait, Safety, Therapeutic Exercise, Transfers Treatment Duration: Feb 13, 2021 Frequency: At least 5 of 7 days/Wk (IRF) Estimated Hrs Per Day: 1.5 hours per day OT IPOC Problems: Decreased Activ Tolerance, Decreased Safety Aware, Decreased UE Strength, Dependent Transfers, Impaired Bed Mobility, Impaired Funct Balance, Impaired I ADL's, Impaired Self-Care Skills OT Treatment, Training and Edu: Yes Plan of Care: ADL Retraining, Functional Mobility, Group Exercise/Act as Ind, UE Funct Exercise/Act Treatment Duration: Feb 20, 2021 Frequency: At least 5 of 7 days/Wk (IRF) Estimated Hrs Per Day: 1.[address] IPOC Speech Therapy Treatment Plan: Discontinue ST Treatment Duration: Jan 23, 2021 Frequency: Modified Program (IRF) Estimated Hrs Per Day: Other Stars Specialist/Case Mgmt Stars Specialist/Case Managemen: Discharge Planning Dietitian/Director Telecommunications Dietitian/Director Telecommunications to monitor nutritional status and make changes and/or recommendations as needed and work with speech pathology on dietary upgrades as the occur. 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 with elevated alkaline phosphatase now with recent fall requiring Stephen lift and 4 people to help get upright will be at high risk for decompensation Medical Issues: Bowel/Bladder Function, DVT Prophylaxis, Falls Precautions, Fluid/Electrolyte/Nutrition Balance, Infection Protection, Pain Management Brief Synthesis of Preadmission Screen, Post-Admission Evaluation, and Therapy Evaluations: PT and OT will focus on regaining ambulatory skills along with independent ADLs in order to strengthen and decrease chance of falls in order to return back to independent living Medical Prognosis: Fair to guarded Anticipated Length of Stay: 14 days RUSSEL MAYERS DO Jan 24, 2021 08:07
[2021-01-24] MEDS: ONDANSETRON 4 MG (ZOFRAN) ORAL DISSOLVE TAB PO PRN (08:41)
[2021-01-24] MEDS: polyethylene glycoL POWDER 17 GM (MIRALAX) PACK PO SCH ×2 (09:00→19:48)
[2021-01-24] MEDS ORDERED: PANTOPRAZOLE 40 MG (PROTONIX) TAB PO SCH (09:00)
[2021-01-24] MEDS: SIMETHICONE 80 MG (MYLICON) CHEW PO SCH ×4 (09:27→21:39)
[2021-01-24] MEDS: fluCOnazole (DIFLUCAN) 100 MG TAB PO SCH (09:27)
[2021-01-24] MEDS: DOXYCYCLINE 100 MG (VIBRAMYCIN) TABLET PO SCH ×2 (09:27→17:55)
[2021-01-24] MEDS: SENNA W/DOCUSATE (SENOKOT S) TABLET PO SCH ×2 (09:27→21:38)
[2021-01-24] MEDS: DOCUSATE SODIUM 100 MG (COLACE) CAP PO SCH (09:27)
[2021-01-24] MEDS ORDERED: FUROSEMIDE 40 MG/4 ML INJ (LASIX) IVP ONE ×2 (09:45→11:30)
[2021-01-24] MEDS ORDERED: EPINEPHrine INJECTION 1 MG/ML AMP IM PRN (09:45)
[2021-01-24] MEDS: NS IV 500 ML 500 ML IV SCH (09:45)
[2021-01-24] MEDS ORDERED: diphenhydrAMINE 50 MG/ML INJ (BENADRYL) IV PRN (09:45)
[2021-01-24] MEDS ORDERED: IRON DEXTRAN INJECTION 1,000 MG in NS (IVPB) 250 ML IV ONE (09:45)
[2021-01-24] MEDS ORDERED: HYDROCORTISONE 100 MG/2 ML (Solu-CORTEF) VIAL IV PRN (09:45)
[2021-01-24] MEDS ORDERED: VITAMIN D2 1.25 MG (50,000 UNITS) CAP PO ONE ×2 (09:45→11:30)
[2021-01-24] MEDS ORDERED: IRON DEXTRAN INJECTION 25 MG in NS (IVPB) 5.75 ML IV ONE (09:45)
[2021-01-24] MEDS ORDERED: RT-ALBUTEROL SULF 2.5 MG/3 ML PRE-MIX VIAL IH PRN (09:45)
--- NOTE | 2021-01-24 09:47 | Consultation ---
History of Present Illness History of Present Illness Patient Consulted On(storm/time) 01/24/21 09:41 Date Seen by Provider: Jan 24, 2021 Time Seen by Provider: 10:00 Reason for Visit: weakness History of Present Illness PT IS A 60 Y/O FEMALE WHO IS KNOWN TO ME FROM CLINIC - SHE PRESENTED TO THE OFFICE FOR NAUSEA, EMESIS AND WEAKNESS. SHE WAS ADMITTED TO THE HOSPITAL, GIVEN IV ANTIBIOTICS FOR A UTI. SHE REPORTS THAT SHE IS FATIGUED, WEAK AND NAUSEATED THIS MORNING. BUT SHE HAS BEEN CONTINUING TO PARTICIPATE IN THERAPY. Allergies and Home Medications Allergies Coded Allergies: valacyclovir HCl (Verified Allergy, Unknown, 01/14/21) Patient Home Medication List Home Medication List Reviewed: Yes Hydrocodone/Acetaminophen (Hydrocodone-Acetamin 7.5-325) 1 Each Tablet, 1 EACH PO QID PRN for PAIN-MODERATE (5-7), (Reported) Entered as Reported by: CATRACHITO DREW on 01/15/211213 Last Action: Reviewed L. Acidophilus/L.bulgaricus (Lactobacillus Tablet) 1 Each Tablet, 2 EA PO TIDWM, (Reported) Entered as Reported by: CATRACHITO DREW on 01/15/211213 Last Action: Reviewed Ondansetron (Ondansetron Odt) 4 Mg Tab.rapdis, 4 MG PO Q8H PRN for NAUSEA/VOMITING-1ST LINE, (Reported) Entered as Reported by: CATRACHITO DREW on 01/15/211213 Last Action: Reviewed Pantoprazole Sodium (Pantoprazole Sodium) 40 Mg Tablet.dr, 40 MG PO HS, (Reported) Entered as Reported by: CATRACHITO DREW on 01/15/211213 Last Action: Reviewed Polyethylene Glycol 3350 (Miralax) 17 Gm Powd.pack, 17 GM PO BID, (Reported) Entered as Reported by: CATRACHITO DREW on 01/15/211213 Last Action: Reviewed Sennosides/Docusate Sodium (Sm Stool Softener-Laxative Tab) 1 Each Tablet, 1 EA PO BID, (Reported) Entered as Reported by: CATRACHITO DREW on 01/15/211213 Last Action: Reviewed Sucralfate (Sucralfate) 1 Gm Tablet, 1 GM PO QID, (Reported) Entered as Reported by: CATRACHITO DREW on 01/15/21 1214 Last Action: Reviewed Past Qvrkqku-Tuscoo-Elwioi Hx Patient Social History Marrital Status: single Number of Children: 1 Number of living children: 1 Living Status: LIVES AT HOME WITH HER SISTER GOLDY 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[employer]) Tobacco Use?: No Smoking Status: Never a Smoker Use of E-Cig and/or Vaping dev: No Substance use?: No Alcohol Use?: No Pt feels they are or have been: No Immunizations Up To Date Date of Influenza Vaccine: Dec 24, 2010 First/Initial COVID19 Vaccinat: March 2020 Second COVID19 Vaccination Storm: April 2020 Tetanus Booster (TDap): Less Than 5 Years Hepatitis A: Yes Hepatitis B: Yes Seasonal Allergies Seasonal Allergies: No Current Status status: No Advance Directives: No Communicates: Verbally Primary Language: Chadian Preferred Spoken Language: Chadian Implanted or Applied Medical D: None Past Medical History Surgeries: Breast, Gallbladder, Orthopedic Currently Using CPAP: No Currently Using BIPAP: No Hypertension Sexually Transmitted Disease: No HIV/AIDS: No Gall Bladder Disease Arthritis Diabetes, Non-Insulin dep Loss of Vision: Denies Hearing Impairment: Denies Breast Did You Recieve Any Treatments: Yes What Type of Treatment Did You: Chemotherapy, Radiation, Surgical Intervention Blood Disorders: No Adverse Reaction/Blood Tranf: No Family Medical History Reviewed and Corrections made Heart Disease, Cancer, Hypertension, Other Conditions/Hx FAMILY HISTORY OF GALLBLADDER DISEASE Review of Systems Review of Systems General: No Chills; Fatigue, Malaise, Appetite (DECREASED) HEENT: No Head Aches, No Dysphasia, No Sore Throat Pulmonary: No Dyspnea, No Cough Cardiovascular: No: Chest Pain, Palpitations Gastrointestinal: Nausea, Abdominal Pain Genitourinary: No Dysuria; Frequency Musculoskeletal: back pain Neurological: Weakness; No: Confusion All Other Systems Reviewed All Other Systems Reviewed: Yes Physical Exam Vital Signs Vital Signs - First Documented 01/23/21 01/23/21 01/23/21 17:05 19:17 20:00 Temp 36.6 36.4 36.6 Pulse 88 Resp 18 B/P (MAP) 131/72 (91) Pulse Ox 98 O2 Delivery Room Air Capillary Refill : Height, Weight, BMI Height: '" Weight: lbs. oz. kg; 46.94 BMI Method:Stated General Appearance: WD/WN, Mild Distress (DUE TO NAUSEA) Eyes: Bilateral Eye Normal Inspection, Bilateral Eye PERRL, Bilateral Eye EOMI HEENT: PERRL/EOMI, Other (DRY MOUTH) Neck: Full Range of Motion, Normal Inspection, Non Tender, Supple Respiratory: Chest Non Tender, Lungs Clear, Normal Breath Sounds, No Accessory Muscle Use, No Respiratory Distress Cardiovascular: Regular Rate, Rhythm Gastrointestinal: Normal Bowel Sounds, No Organomegaly, No Pulsatile Mass, Non Tender, Soft Rectal: Deferred Back: Normal Inspection, No Vertebral Tenderness Extremity: Normal Capillary Refill, Non Tender, No Calf Tenderness, Pedal Edema (TRACE PEDAL EDEMA) Neurologic/Psychiatric: Alert, Oriented x3, No 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, Normal Mood/Affect, stripper 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 II-XII Norm as Tested Skin: Normal Color, Warm/Dry Lymphatic: No Adenopathy Assessment/Plan Assessment/Plan Admission Dx ACUTE INJURY HEPATITIS ELEVATED ALKALINE PHOSPHATASE LEUKOCYTOSIS URINARY TRACT INFECTION, SEPSIS HYPERBILIRUBINEMIA WEIGHT LOSS MALAISE ANOREXIA NAUSEA EMESIS WEAKNESS AND FALLING EPISODES DIET CONTROLLED DIABETES MELLITUS ANEMIA IRON DEFICIENCY HYPOKALEMIA Admission Status: Inpatient Order (span 2 midnights) Reason for Inpatient Admission: INPT ADMISSION FOR REHAB - WILL REQUIRE AT LEAST 1-2 WEEKS IN THE HOSPITAL Assessment and Plan ACUTE INJURY HEPATITIS ELEVATED ALKALINE PHOSPHATASE LEUKOCYTOSIS URINARY TRACT INFECTION, SEPSIS HYPERBILIRUBINEMIA WEIGHT LOSS MALAISE ANOREXIA NAUSEA EMESIS WEAKNESS AND FALLING EPISODES DIET CONTROLLED DIABETES MELLITUS ANEMIA IRON DEFICIENCY HYPOKALEMIA VITAMIN D DEFICIENCY ACUTE INJURY HEPATITIS WITH PERSISTENTLY ELEVATED ALKALINE PHOSPHATASE, LEUKOC YTOSIS AND HYPERBILIRUBINEMIA - DISCUSSED CASE WITH DR. ANDRADE - CASE DISCUSSED WITH DR. SANTIAGO - HE IS WONDERING ABOUT TOSCANO -- HE REQUESTED IMAGING TO BE CLOUDED SO HE COULD REVIEW HER CASE, MAKE RECOMMENDATIONS AND HE HAS INDICATED HE WILL CALL NEXT WEEK WHEN BRIANA IS ON INPT REHAB FOR HER TO BE SEEN IN HIS OFFICE. HE DID NOT MAKE ANY FURTHER RECOMMENDATIONS UNTIL HE HAS REVIEWED HER PERTINENT IMAGING STUDIES. - APPRECIATE HIS INPUT WEIGHT LOSS DUE TO ANOREXIA AND NAUSEA/EMESIS - - DIETARY CONSULT - STARTED REGLAN AT 5MG IV TID - ADDED SCOPOLAMINE PATCH - IMPROVED NAUSEA - PRN ZOFRAN UTI WITH ENTEROCOCCUS, SEPSIS WITH ECOLI - PT ON MEROPENEM - MONITOR FURTHER CULTURE RESULTS - YEAST ON URINE STOPPED DIFLUCAN AFTER TREATMENT REGIMEN COMPLETED - ADDED DOXYCYCLINE PO - PT CLOSE TO END OF TREATMENT MALAISE, WEAKNESS AND FALLING EPISODES - CONTINUE INTENSIVE PHYSICAL AND OCCUPATIONAL THERAPY - DIET CONTROLLED DIABETES MELLITUS -DIET CONTROLLED, MONITOR FSBS ANEMIA - REPEAT LABS TODAY - IMPROVED AT THIS TIME - S/P BLOOD TRANSFUSION 01/23/21 - 1 UNIT OF BLOOD - PT TO RECEIVE IV IRON 01/24/2021 HYPOKALEMIA - REPLENISHED WITH IV POTASSIUM ABDOMINAL PAIN AND BACK PAIN - STOPPED HYDROCODONE THAT MAY BE CONTRIBUTING TO HER CYCLICAL VOMITING - USE TORADOL FOR PAIN VITAMIN D DEFICIENCY - VITAMIN D2 TODAY AND WEEKLY, AND LOW DOSE VITAMIN D3 DAILY DC'D CABALLERO DVT PROPHYLAXIS WITH SCD'S AND AMBULATION - STOPPED LOVENOX DUE TO BLOOD LOSS RELATED ANEMIA GI PROPHYLAXIS WITH PROBIOTICS AND PROTONIX. DOREEN LI MD Jan 24, 2021 09:47
--- NOTE | 2021-01-24 10:00 | Physical Therapy Daily Note ---
PT Daily Note-Current Subjective Pt supine in bed upon arrival, requesting use of BSC at this time. Reports she had a long night with N/V, dry heaving, and LBP. Does not rate LBP Appearance Following session, pt returned to supine in bed. Call light, tray table, and phone within reach. All needs met at this time. Mental Status Patient Orientation: Person, Place, Situation Attachments: IV Transfers SCALE: Activities may be completed with or without assistive devices. 1-Sjenfskhcg-lqulmem completes the activity by him/herself with no assistance from a helper. 5-Set-up or Clean-up Assistance-helper sets up or cleans up; patient completes activity. Berkley assists only prior to or following the activity. 4-Supervision or Touching Assistance-helper provides verbal cues and/or touching/steadying and/or contact guard assistance as patient completes activity. Assistance may be provided throughout the activity or intermittently. 3-Partial/Moderate Assistance-helper does LESS THAN HALF the effort. Berkley lifts, holds or supports trunk or limbs, but provides less than half the effort. 2-Substantial/Maximal Assistance-helper does MORE THAN HALF the effort. Berkley lifts or holds trunk or limbs and provides more than half the effort. 8-Flukshaup-mdyqgz does ALL the effort. Patient does none of the effort to complete the activity. Or, the assistance of 2 or more helpers is required for the patient to complete the activity. If activity was not attempted, code reason: 7-Patient Refused. 9-Not Applicable-not attempted and the patient did not perform the activity before the current illness, exacerbation or injury. 10-Not Attempted due to Environmental Limitations-(lack of equipment, weather restraints, etc.). 88-Not Attempted due to Medical Conditions or Safety Concerns. Roll Left & Right (QC): 4 Sit to Lying (QC): 2 Lying to Sitting/Side of Bed(Q: 4 Sit to Stand (QC): 3 Chair/Jee-ag-Djvlb Xfer(QC): 3 Toilet Transfer (QC): 3 Gait Training Distance: 5 steps Gait Assistive Device: FWW CGA to BSC, 3-5 steps Treatments Pt instructed on sequencing and hand placement on bed rails for bed mobility, able to complete without physical assistance from supine- sit. Pt able to com plete sit to stand from elevated surface x 2, wih mod-max A x2, transfer to BSC with CGA, mod-max A sit to stand from BSC, anf transfer back to bed. Pt max A to return to supine, unable to lift BLE into bed. Assessment Current Status: Fair Progress Pt able to progress bed mobility, especially noted improvement with supine to sit with VCS. PT Short Term Goals Short Term Goals Time Frame: Jan 30, 2021 Roll Left & Right: 6 Sit to lyin Lying to sitting on side of be: 3 Sit to stand: 3 Chair/evy-ym-rnsbm transfer: 4 PT Rn Referral Goals Rn Referral Goals PT Rn Referral Goals Time Frame: Feb 13, 2021 Roll Left & Right (QC): 6 Sit to Lying (QC): 5 Lying-Sitting on Side/Bed(QC): 5 Sit to Stand (QC): 4 Chair/Flz-qz-Zyonq Xfer(QC): 4 Toilet Transfer (QC): 4 Car Transfer (QC): 4 Does the Patient Walk: Yes Walk 10 feet (QC): 4 Walk 50ft with 2 Turns (QC): 4 Walk 150 ft (QC): 4 Walking 10ft on Uneven Surface: 4 1 Step (curb) (QC): 4 4 Steps (QC): 4 12 Steps (QC): 88 Picking up an Object (QC): 4 Wheel 50 feet with 2 turns (QC: 9 Wheel 150 feet: 9 PT Plan Problem List Problem List: Activity Tolerance, Functional Strength, Safety, Balance, Gait, Transfer, Bed Mobility, ROM Treatment/Plan Treatment Plan: Continue Plan of Care Treatment Plan: Bed Mobility, Education, Functional Activity Altaf, Functional Strength, Group Therapy, Gait, Safety, Therapeutic Exercise, Transfers Treatment Duration: Feb 13, 2021 Frequency: At least 5 of 7 days/Wk (IRF) Estimated Hrs Per Day: 1.5 hours per day Patient and/or Family Agrees t: Yes Time/GCodes Time In: 825 Time Out: 858 Total Billed Treatment Time: 33 Total Billed Treatment 1 visit FA (33') VALERIA ARTIS PT Jan 24, 2021 10:00
[2021-01-24] MEDS ORDERED: BISACODYL 10 MG SUPP (DULCOLAX) PR ONE (11:15)
[2021-01-24] MEDS: POTASSIUM CL 10MEQ/50ML IVPB 50 ML IV SCH ×2 (11:22→14:26)
[2021-01-24] MEDS ORDERED: METOCLOPRAMIDE INJ 10 MG/2 ML (REGLAN) IVP ONE (11:30)
[2021-01-24 13:00] VITALS: BP 162/76
[2021-01-24] MEDS: LACTOBACILLUS Acidoph/Bulgar 1 GM (LACTINEX) PACKET PO SCH (17:55)
[2021-01-24 20:00] VITALS: BP 131/79
[2021-01-24] MEDS: PANTOPRAZOLE 40 MG (PROTONIX) TAB PO SCH (21:38)
[2021-01-25] MEDS: KETOROLAC 30 MG/ML VIAL IVP PRN ×2 (00:41→09:12)
[2021-01-25] MEDS: NS IV 500 ML 500 ML IV SCH (00:52)
[2021-01-25] MEDS: fentaNYL INJ 100 MCG/2 ML AMP IVP PRN ×3 (04:43→21:55)
[2021-01-25] MEDS: MEROPENEM 1,000 MG in WATER (STERILE) FOR INJECTION 20 ML IV SCH ×3 (05:43→21:54)
[2021-01-25] MEDS: METOCLOPRAMIDE INJ 10 MG/2 ML (REGLAN) IVP SCH ×3 (05:43→21:55)
[2021-01-25] MEDS: ALBUMIN 25% 25 GM/100 ML 100 ML IV SCH ×3 (05:43→17:05)
[2021-01-25 06:16] LABS: HEMATOCRIT 32 % (35-52); HEMOGLOBIN 10.1 g/dL (11.5-16.0); MEAN CORPUSCULAR HEMOGLOBIN 28 pg (25-34); MEAN CORPUSCULAR HGB CONC 32 g/dL (32-36); MEAN CORPUSCULAR VOLUME 89 fL (80-99); MEAN PLATELET VOLUME 11.4 fL (9.0-12.2); PLATELET COUNT 290 10^3/uL (130-400); WHITE BLOOD COUNT 9.6 10^3/uL (4.3-11.0)
[2021-01-25 06:30] LABS: ALBUMIN 3.3 GM/DL (3.2-4.5); POTASSIUM 3.7 MMOL/L (3.6-5.0)
[2021-01-25 06:32] LABS: CALCIUM 9.1 MG/DL (8.5-10.1)
[2021-01-25 06:33] LABS: TOTAL PROTEIN 6.2 GM/DL (6.4-8.2)
[2021-01-25 06:35] LABS: BILIRUBIN,TOTAL 0.9 MG/DL (0.1-1.0)
[2021-01-25 06:36] LABS: PHOSPHORUS 2.5 MG/DL (2.3-4.7)
[2021-01-25 06:37] LABS: CREATININE SERUM 0.59 MG/DL (0.60-1.30)
[2021-01-25 06:39] LABS: MAGNESIUM 1.7 MG/DL (1.6-2.4)
[2021-01-25] MEDS ORDERED: VITAMIN D3 10 MCG (400 UNITS) TABLET PO SCH (07:00)
[2021-01-25 07:30] VITALS: BP 134/78
--- NOTE | 2021-01-25 08:06 | PM&R Progress Note ---
Subjective HPI/CC On Admission Date Seen by Provider: Jan 25, 2021 Time Seen by Provider: 12:00 Subjective/Events-last exam 01/25/2021: Patient doing really well Central line leaking is much improved Use sandbag and a pressure dressing Nausea is improved Scopolamine patch maintained Checking labs in the morning 01/24/2021: Patient had been doing pretty well until sustaining a fall in the bathroom It took a Stephen lift and 4 people to get her up Dr. Garcia ordered IV Lasix and iron infusion Vitamin D was also started Alk phos remains high at 495 Review of Systems General: Fatigue, Malaise Neurological: Weakness Objective Exam Vital Signs Vital Signs Date Time Temp Pulse Resp B/P (MAP) Pulse Ox O2 Delivery O2 Flow Rate FiO2 01/25/21 20:30 Room Air 01/25/21 20:00 36.6 107 20 122/70 (87) 92 01/24/21 10:15 0.00 Capillary Refill : General Appearance: No Apparent Distress, WD/WN, Chronically ill, Obese, Other (Very debilitated) HEENT: PERRL/EOMI, Normal ENT Inspection, Pharynx Normal Neck: Full Range of Motion, Normal Inspection, Non Tender, Supple, Carotid Bruit Respiratory: Chest Non Tender, Lungs Clear, Normal Breath Sounds, No Accessory Muscle Use, No Respiratory Distress Cardiovascular: Regular Rate, Rhythm, No Edema, No Gallop, No JVD, No Murmur, Normal Peripheral Pulses Gastrointestinal: Normal Bowel Sounds, No Organomegaly, No Pulsatile Mass, Non Tender, Soft Rectal: Deferred Back: Normal Inspection, No CVA Tenderness, No Vertebral Tenderness Extremity: Normal Capillary Refill, Normal Inspection, Normal Range of Motion, Non Tender, No Calf Tenderness, No Pedal Edema Neurologic/Psychiatric: Alert, Oriented x3, No 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, ladle puller II- XII Norm as Tested, Abnormal Gait, Depressed Affect, Motor Weakness (Generalized 3/5 all extremities) Skin: Normal Color, Warm/Dry Lymphatic: No Adenopathy Results/Procedures Lab Laboratory Tests 01/25/21 06:00 01/26/21 05:00 Patient resulted labs reviewed. FIM Transfers Therapy Code Descriptions/Definitions Functional [place] Measure: 0=Not Assessed/NA 4=Minimal Assistance 1=Total Assistance 5=Supervision or Setup 2=Maximal Assistance 6=Modified [place] 3=Moderate Assistance 7=Complete IndependenceSCALE: Activities may be completed with or without assistive devices. 0-Tcjuhhiars-kovnycm completes the activity by him/herself with no assistance from a helper. 5-Set-up or Clean-up Assistance-helper sets up or cleans up; patient completes activity. [place] assists only prior to or following the activity. 4-Supervision or Touching Assistance-helper provides verbal cues and/or touching/steadying and/or contact guard assistance as patient completes act ivity. Assistance may be provided throughout the activity or intermittently. 3-Partial/Moderate Assistance-helper does LESS THAN HALF the effort. [place] lifts, holds or supports trunk or limbs, but provides less than half the effort. 2-Substantial/Maximal Assistance-helper does MORE THAN HALF the effort. [place] lifts or holds trunk or limbs and provides more than half the effort. 5-Adwttterc-gzidif does ALL the effort. Patient does none of the effort to complete the activity. Or, the assistance of 2 or more helpers is required for the patient to complete the activity. If activity was not attempted, code reason: 7-Patient Refused. 9-Not Applicable-not attempted and the patient did not perform the activity before the current illness, exacerbation or injury. 10-Not Attempted due to Environmental Limitations-(lack of equipment, weather restraints, etc.). 88-Not Attempted due to Medical Conditions or Safety Concerns. Roll Left to Right (QC): 4 Sit to Lying (QC): 2 Sit to Stand (QC): 3 Chair/Xwa-eg-Gzzvl Xfer(QC): 3 Car Transfer (QC): 88 Gait Training Does the Patient Walk?: Yes Distance: 5 steps Walk 10 feet (QC): 4 Walk 50 ft with 2 Turns(QC): 88 Walk 150 ft (QC): 88 Walking 10ft/uneven surface-QC: 88 Gait Assistive Device: FWW Wheelchair Training Does the Pt Use a Wheelchair?: Yes Distance: 10' Wheel 50 ft with 2 turns (QC): 88 Wheel 150 ft (QC): 88 Type of Wheelchair: Manual Stair Training 1 Step (curb) (QC): 88 4 Steps (QC): 88 12 Steps (QC): 88 Balance Picking up an Object (QC): 88 ADL-Treatment Eating (QC): 6 (Per pt report, IND with breakfast.) Oral Hygiene (QC): 5 (based on clincial judgment.) Shower/Bathe Self (QC): 1 (Assist x2 required in stand.) Upper Body Dressing (QC): 5 (set up with lime puller night gown.) Lower Body Dressing (QC): 1 (Pt able to thread BLEs into pants, assist with pant hike. Assist x2 required in stand.) On/Off Footwear (QC): 1 (total assist donning gripper socks.) Toileting Hygiene (QC): 1 (Assist x2 required for clothing management.) Assessment/Plan Assessment and Plan Assess & Plan/Chief Complaint Assessment: Acute myopathy ACUTE INJURY HEPATITIS ELEVATED ALKALINE PHOSPHATASE LEUKOCYTOSIS URINARY TRACT INFECTION, SEPSIS HYPERBILIRUBINEMIA WEIGHT LOSS MALAISE ANOREXIA NAUSEA EMESIS WEAKNESS AND FALLING EPISODES DIET CONTROLLED DIABETES MELLITUS ANEMIA IRON DEFICIENCY HYPOKALEMIA Plan: Aggressive physical therapy Pain control Monitor weight loss 01/24/2021: Fall risk Monitor closely 01/25/2021: Check labs in the morning including liver function test along with ammonia and GGT Supportive care (1) Myopathy RUSSEL MAYERS DO Jan 25, 2021 08:06
[2021-01-25] MEDS: polyethylene glycoL POWDER 17 GM (MIRALAX) PACK PO SCH ×2 (09:00→19:32)
[2021-01-25] MEDS: VITAMIN D3 10 MCG (400 UNITS) TABLET PO SCH (09:16)
[2021-01-25] MEDS: SIMETHICONE 80 MG (MYLICON) CHEW PO SCH ×4 (09:16→21:57)
[2021-01-25] MEDS: PANTOPRAZOLE 40 MG (PROTONIX) TAB PO SCH ×2 (09:16→21:57)
[2021-01-25] MEDS: fluCOnazole (DIFLUCAN) 100 MG TAB PO SCH (09:16)
[2021-01-25] MEDS: DOCUSATE SODIUM 100 MG (COLACE) CAP PO SCH (09:16)
[2021-01-25] MEDS: SENNA W/DOCUSATE (SENOKOT S) TABLET PO SCH ×2 (09:16→22:21)
[2021-01-25] MEDS: DOXYCYCLINE 100 MG (VIBRAMYCIN) TABLET PO SCH (09:16)
[2021-01-25] MEDS: LACTOBACILLUS Acidoph/Bulgar 1 GM (LACTINEX) PACKET PO SCH ×2 (09:17→17:05)
--- NOTE | 2021-01-25 09:23 | Progress Note ---
Subjective Subjective Date Seen by Provider: Jan 25, 2021 Time Seen by Provider: 09:22 Review of Systems General: Fatigue, Malaise HEENT: No Head Aches, No Dysphasia, No Sore Throat Pulmonary: No Dyspnea, No Cough Cardiovascular: No: Chest Pain, Palpitations Gastrointestinal: Nausea, Abdominal Pain Genitourinary: No Dysuria; Frequency Musculoskeletal: back pain Neurological: Weakness, Incoordination All Other Systems Reviewed All Other Systems Reviewed: Yes Objective Exam Vital Signs Vital Signs Date Time Temp Pulse Resp B/P (MAP) Pulse Ox O2 Delivery O2 Flow Rate FiO2 01/25/21 07:30 36.8 99 18 134/78 (96) 93 Room Air 01/24/21 20:30 Room Air 01/24/21 20:00 37.0 114 20 131/79 (96) 91 Room Air 01/24/21 13:00 36.5 100 20 162/76 (104) 95 Room Air 01/24/21 10:15 Room Air 0.00 I & O 01/25/21 07:00 Intake Total 1616.25 ml Balance 1616.25 ml General Appearance: No Apparent Distress, WD/WN, Chronically ill, Obese, Other (Very debilitated) Eyes: Bilateral Eye Normal Inspection, Bilateral Eye PERRL, Bilateral Eye EOMI HEENT: PERRL/EOMI, Normal ENT Inspection, Pharynx Normal Neck: Full Range of Motion, Normal Inspection, Non Tender, Supple, Carotid Bruit Respiratory: Chest Non Tender, Lungs Clear, Normal Breath Sounds, No Accessory Muscle Use, No Respiratory Distress Cardiovascular: Regular Rate, Rhythm, No Edema, No Gallop, No JVD, No Murmur, Normal Peripheral Pulses Gastrointestinal: Normal Bowel Sounds, No Organomegaly, No Pulsatile Mass, Non Tender, Soft Rectal: Deferred Back: Normal Inspection, No CVA Tenderness, No Vertebral Tenderness Extremity: Normal Capillary Refill, Normal Inspection, Normal Range of Motion, Non Tender, No Calf Tenderness, No Pedal Edema Neurologic/Psychiatric: Alert, Oriented x3, No 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, 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 Norm as Tested, Abnormal Gait, Depressed Affect, Motor Weakness (Generalized 3/5 all extremities) Skin: Normal Color, Warm/Dry Lymphatic: No Adenopathy Results Lab Laboratory Tests 01/25/21 06:00: White Blood Count 9.6, Red Blood Count 3.59L, Hemoglobin 10.1L, Hematocrit 32L, Mean Corpuscular Volume 89, Mean Corpuscular Hemoglobin 28, Mean Corpuscular Hemoglobin Concent 32, Red Cell Distribution Width 17.6H, Platelet Count 290, Mean Platelet Volume 11.4, Sodium Level 138, Potassium Level 3.7, Chloride Level 99, Carbon Dioxide Level 27, Anion Gap 12, Blood Urea Nitrogen 11, Creatinine 0.59L, Estimat Glomerular Filtration Rate 103, BUN/Creatinine Ratio 19, Glucose Level 113H, Calcium Level 9.1, Corrected Calcium 9.7, Phosphorus Level 2.5, Magnesium Level 1.7, Total Bilirubin 0.9, Aspartate Amino Transf (AST/SGOT) 31, Alanine Aminotransferase (ALT/SGPT) 15, Alkaline Phosphatase 358H, Total Protein 6.2L, Albumin 3.3 Assessment/Plan Assessment/Plan Admission Dx ACUTE INJURY HEPATITIS ELEVATED ALKALINE PHOSPHATASE LEUKOCYTOSIS URINARY TRACT INFECTION, SEPSIS HYPERBILIRUBINEMIA WEIGHT LOSS MALAISE ANOREXIA NAUSEA EMESIS WEAKNESS AND FALLING EPISODES DIET CONTROLLED DIABETES MELLITUS ANEMIA IRON DEFICIENCY HYPOKALEMIA Assessment and Plan ACUTE INJURY HEPATITIS ELEVATED ALKALINE PHOSPHATASE LEUKOCYTOSIS URINARY TRACT INFECTION, SEPSIS HYPERBILIRUBINEMIA WEIGHT LOSS MALAISE ANOREXIA NAUSEA EMESIS WEAKNESS AND FALLING EPISODES DIET CONTROLLED DIABETES MELLITUS ANEMIA IRON DEFICIENCY HYPOKALEMIA VITAMIN D DEFICIENCY FALL IN BATHROOM WITH FACIAL PAIN AND LEFT ELBOW PAIN ACUTE INJURY HEPATITIS WITH PERSISTENTLY ELEVATED ALKALINE PHOSPHATASE, LEUKOCYTOSIS AND HYPERBILIRUBINEMIA - DISCUSSED CASE WITH DR. ANDRADE - CASE DISCUSSED WITH DR. SANTIAGO - HE IS WONDERING ABOUT [facility] -- HE REQUESTED IMAGING TO BE CLOUDED SO HE COULD REVIEW HER CASE, MAKE RECOMMENDATIONS AND HE HAS INDICATED HE WILL CALL NEXT WEEK WHEN BRIANA IS ON INPT REHAB FOR HER TO BE SEEN IN HIS OFFICE. HE DID NOT MAKE ANY FURTHER RECOMMENDATIONS UNTIL HE HAS REVIEWED HER PERTINENT IMAGING STUDIES. - APPRECIATE HIS INPUT - PLANNING ON PATIENT TO BE SEEN IN HIS OFFICE [facility] THIS WEEK. WEIGHT LOSS DUE TO ANOREXIA AND NAUSEA/EMESIS - - DIETARY CONSULT - STARTED REGLAN AT 5MG IV TID - ADDED SCOPOLAMINE PATCH - IMPROVED NAUSEA - PRN ZOFRAN UTI WITH ENTEROCOCCUS, SEPSIS WITH ECOLI - PT ON MEROPENEM - MONITOR FURTHER CULTURE RESULTS - YEAST ON UA STOPPED DIFLUCAN TODAY - PT HAS FINISHED DOXYCYCLINE MALAISE, WEAKNESS AND FALLING EPISODES - CONTINUE INTENSIVE PHYSICAL AND OCCUPATIONAL THERAPY DIET CONTROLLED DIABETES MELLITUS -DIET CONTROLLED, MONITOR FSBS ANEMIA - REPEAT LABS TODAY - IMPROVED AT THIS TIME - S/P BLOOD TRANSFUSION 01/23/21 - 1 UNIT OF BLOOD - PT RECEIVED IV IRON 01/24/2021 HYPOKALEMIA - REPLENISHED WITH IV POTASSIUM SINCE THE ORAL POTASSIUM HAS CAUSED SIGNIFICANT GI UPSET ABDOMINAL PAIN AND BACK PAIN - STOPPED HYDROCODONE THAT MAY BE CONTRIBUTING TO HER CYCLICAL VOMITING - USE TORADOL FOR PAIN, SPARINGLY USE FENTANYL VITAMIN D DEFICIENCY - VITAMIN D2 TO BE GIVEN WHEN PHARMACY GETS DOSE IN HOSPITAL AND THEN SHE IS TO GET THIS WEEKLY, AND LOW DOSE VITAMIN D3 DAILY FALL IN BATHROOM WITH FACIAL PAIN AND LEFT ELBOW PAIN - XRAY PENDING TODAY OF FACE AND ELBOW DVT PROPHYLAXIS WITH SCD'S AND AMBULATION - STOPPED LOVENOX DUE TO BLOOD LOSS RELATED ANEMIA GI PROPHYLAXIS WITH PROBIOTICS AND PROTONIX. Admission Dx ACUTE INJURY HEPATITIS ELEVATED ALKALINE PHOSPHATASE LEUKOCYTOSIS URINARY TRACT INFECTION, SEPSIS HYPERBILIRUBINEMIA WEIGHT LOSS MALAISE ANOREXIA NAUSEA EMESIS WEAKNESS AND FALLING EPISODES DIET CONTROLLED DIABETES MELLITUS ANEMIA IRON DEFICIENCY HYPOKALEMIA Clinical Quality Measures Admission Status Admission Dx ACUTE INJURY HEPATITIS ELEVATED ALKALINE PHOSPHATASE LEUKOCYTOSIS URINARY TRACT INFECTION, SEPSIS HYPERBILIRUBINEMIA WEIGHT LOSS MALAISE ANOREXIA NAUSEA EMESIS WEAKNESS AND FALLING EPISODES DIET CONTROLLED DIABETES MELLITUS ANEMIA IRON DEFICIENCY HYPOKALEMIA DOREEN LI MD Jan 25, 2021 09:23
[2021-01-25] MEDS ORDERED: VITAMIN D2 1.25 MG (50,000 UNITS) CAP PO ONE (09:58)
--- NOTE | 2021-01-25 10:22 | Diagnostic Imaging Report ---
INDICATION: Pain, fall COMPARISON: None available. TECHNIQUE: 3 radiographs of the left elbow dated 01/25/2021. FINDINGS: No acute fracture or dislocation. No destructive osseous process. Mild degenerative changes of the left elbow. No joint effusion. No suspicious radiopaque foreign body. IMPRESSION: No acute osseous abnormality with mild degenerative changes. Dictated by: Dictated on workstation # [id number]
--- NOTE | 2021-01-25 10:23 | Diagnostic Imaging Report ---
INDICATION: Fall, pain COMPARISON: None available. TECHNIQUE: 2 radiographs of the facial bones dated 01/25/2021. FINDINGS: No depressed calvarial fracture. The orbital rims appear intact. The paranasal sinuses are clear. Small leftward projecting nasal spur. No suspicious radiopaque foreign body. IMPRESSION: No acute facial fracture. Dictated by: Dictated on workstation # [id number]
[2021-01-25] MEDS: POTASSIUM CL 10MEQ/50ML IVPB 50 ML IV SCH ×2 (10:52→11:39)
[2021-01-25] MEDS ORDERED: FUROSEMIDE 40 MG/4 ML INJ (LASIX) IVP ONE (12:00)
--- NOTE | 2021-01-25 12:40 | Progress Note - Surgery ---
Subjective Time Seen by a Provider: 11:08 Subjective/Events-last exam Pt seen and examined, she is having copious amounts of serous fluid coming out around central line placed Left IJ. She denies pain, but states the drainage is annoying. She needs the central line for IV access; has blown peripheral IVs and multiple mid-line IVs. Review of Systems General: No Chills; Fatigue, Malaise Pulmonary: No Dyspnea, No Cough Cardiovascular: No: Chest Pain, Palpitations Gastrointestinal: No: Nausea, Vomiting, Abdominal Pain Objective Exam Vital Signs Date Time Temp Pulse Resp B/P (MAP) Pulse Ox O2 Delivery O2 Flow Rate FiO2 01/25/21 09:00 Room Air 01/25/21 07:30 36.8 99 18 134/78 (96) 93 Room Air 01/24/21 20:30 Room Air 01/24/21 20:00 37.0 114 20 131/79 (96) 91 Room Air 01/24/21 13:00 36.5 100 20 162/76 (104) 95 Room Air I & O 01/25/21 07:00 Intake Total 1616.25 ml Balance 1616.25 ml Capillary Refill : General Appearance: No Apparent Distress, Chronically ill, Obese, Other (Very debilitated) HEENT: PERRL/EOMI Respiratory: Chest Non Tender, Lungs Clear, Normal Breath Sounds, No Accessory Muscle Use, No Respiratory Distress Cardiovascular: Regular Rate, Rhythm, No Murmur Gastrointestinal: non tender, soft Neurologic/Psychiatric: Alert, Oriented x3, Abnormal Gait, Depressed Affect, Motor Weakness (Generalized 3/5 all extremities) Skin: Normal Color, Warm/Dry, Other (pt has moderate amount of serous fluid coming out around Left subclavian central line, no real edema, ??mild swelling supraclavicular) Results Lab Laboratory Tests 01/25/21 06:00: White Blood Count 9.6, Red Blood Count 3.59L, Hemoglobin 10.1L, Hematocrit 32L, Mean Corpuscular Volume 89, Mean Corpuscular Hemoglobin 28, Mean Corpuscular Hemoglobin Concent 32, Red Cell Distribution Width 17.6H, Platelet Count 290, Mean Platelet Volume 11.4, Sodium Level 138, Potassium Level 3.7, Chloride Level 99, Carbon Dioxide Level 27, Anion Gap 12, Blood Urea Nitrogen 11, Creatinine 0.59L, Estimat Glomerular Filtration Rate 103, BUN/Creatinine Ratio 19, Glucose Level 113H, Calcium Level 9.1, Corrected Calcium 9.7, Phosphorus Level 2.5, Magnesium Level 1.7, Total Bilirubin 0.9, Aspartate Amino Transf (AST/SGOT) 31, Alanine Aminotransferase (ALT/SGPT) 15, Alkaline Phosphatase 358H, Total Protein 6.2L, Albumin 3.3 Assessment/Plan Assessment/Plan Assessment/Plan Problems with Central line - serous fluid leaking Pt was given a few options; 1)do nothing 2) suture around catheter to try and close up entry site 3) dahiana-cath 4) place IJ and remove subclavian. I did get it to stop leaking when I held pressure; which tells me that either pressure or probably suturing around catheter will most likely help this. We placed a sandbag for now and see how that goes. ACUTE INJURY HEPATITIS ELEVATED ALKALINE PHOSPHATASE LEUKOCYTOSIS URINARY TRACT INFECTION, SEPSIS HYPERBILIRUBINEMIA WEIGHT LOSS MALAISE ANOREXIA NAUSEA EMESIS WEAKNESS AND FALLING EPISODES DIET CONTROLLED DIABETES MELLITUS ANEMIA IRON DEFICIENCY HYPOKALEMIA VITAMIN D DEFICIENCY FALL IN BATHROOM WITH FACIAL PAIN AND LEFT ELBOW PAIN ACUTE INJURY HEPATITIS WITH PERSISTENTLY ELEVATED ALKALINE PHOSPHATASE, LEUKOCYTOSIS AND HYPERBILIRUBINEMIA - DISCUSSED CASE WITH DR. ANDRADE - CASE DISCUSSED WITH DR. SANTIAOG - HE IS WONDERING ABOUT [facility] -- HE REQUESTED IMAGING TO BE CLOUDED SO HE COULD REVIEW HER CASE, MAKE RECOMMENDATIONS AND HE HAS INDICATED HE WILL CALL NEXT WEEK WHEN BRIANA IS ON INPT REHAB FOR HER TO BE SEEN IN HIS OFFICE. HE DID NOT MAKE ANY FURTHER RECOMMENDATIONS UNTIL HE HAS REVIEWED HER PERTINENT IMAGING STUDIES. - APPRECIATE HIS INPUT - PLANNING ON PATIENT TO BE SEEN IN HIS OFFICE [facility] THIS WEEK. WEIGHT LOSS DUE TO ANOREXIA AND NAUSEA/EMESIS - - DIETARY CONSULT - STARTED REGLAN AT 5MG IV TID - ADDED SCOPOLAMINE PATCH - IMPROVED NAUSEA - PRN ZOFRAN UTI WITH ENTEROCOCCUS, SEPSIS WITH ECOLI - PT ON MEROPENEM - MONITOR FURTHER CULTURE RESULTS - YEAST ON UA STOPPED DIFLUCAN TODAY - PT HAS FINISHED DOXYCYCLINE MALAISE, WEAKNESS AND FALLING EPISODES - CONTINUE INTENSIVE PHYSICAL AND OCCUPATIONAL THERAPY DIET CONTROLLED DIABETES MELLITUS -DIET CONTROLLED, MONITOR FSBS ANEMIA - REPEAT LABS TODAY - IMPROVED AT THIS TIME - S/P BLOOD TRANSFUSION 01/23/21 - 1 UNIT OF BLOOD - PT RECEIVED IV IRON 01/24/2021 HYPOKALEMIA - REPLENISHED WITH IV POTASSIUM SINCE THE ORAL POTASSIUM HAS CAUSED SIGNIFICANT GI UPSET ABDOMINAL PAIN AND BACK PAIN - STOPPED HYDROCODONE THAT MAY BE CONTRIBUTING TO HER CYCLICAL VOMITING - USE TORADOL FOR PAIN, SPARINGLY USE FENTANYL VITAMIN D DEFICIENCY - VITAMIN D2 TO BE GIVEN WHEN PHARMACY GETS DOSE IN HOSPITAL AND THEN SHE IS TO GET THIS WEEKLY, AND LOW DOSE VITAMIN D3 DAILY FALL IN BATHROOM WITH FACIAL PAIN AND LEFT ELBOW PAIN - XRAY PENDING TODAY OF FACE AND ELBOW DVT PROPHYLAXIS WITH SCD'S AND AMBULATION - STOPPED LOVENOX DUE TO BLOOD LOSS RELATED ANEMIA GI PROPHYLAXIS WITH PROBIOTICS AND PROTONIX. ANGELINA DANG DO Jan 25, 2021 12:40
[2021-01-25] MEDS: SALIVA STIMULANT MOUTH SPRAY (BIOTENE) 1.5 OZ MM PRN (14:32)
[2021-01-25] MEDS: ALPRAZolam 0.25 MG (XANAX) TAB PO PRN (17:04)
[2021-01-25 20:00] VITALS: BP 122/70
[2021-01-25] MEDS: LORazepam INJ 2 MG/ML (ATIVAN) VIAL IVP PRN (21:55)
[2021-01-25] MEDS: NS W/KCL 20 MEQ/L 1,000 ML IV SCH (21:56)
[2021-01-25] MEDS: MELATONIN 3 MG TABLET PO PRN (21:57)
[2021-01-26] MEDS: ALBUMIN 25% 25 GM/100 ML 100 ML IV SCH ×3 (00:35→16:44)
[2021-01-26] MEDS: KETOROLAC 30 MG/ML VIAL IVP PRN ×2 (00:45→08:58)
[2021-01-26] MEDS: ALPRAZolam 0.25 MG (XANAX) TAB PO PRN ×2 (01:47→20:55)
[2021-01-26] MEDS: fentaNYL INJ 100 MCG/2 ML AMP IVP PRN ×4 (02:50→20:55)
[2021-01-26 05:14] LABS: BASOPHILS % (AUTO) 0 % (0-10); EOSINOPHILS # (AUTO) 0.1 10^3/uL (0.0-0.3); EOSINOPHILS % (AUTO) 1 % (0-10); HEMATOCRIT 31 % (35-52); HEMOGLOBIN 9.7 g/dL (11.5-16.0); LYMPHOCYTES # (AUTO) 0.8 10^3/uL (1.0-4.0); LYMPHOCYTES % (AUTO) 8 % (12-44); MEAN CORPUSCULAR HEMOGLOBIN 28 pg (25-34); MEAN CORPUSCULAR HGB CONC 31 g/dL (32-36); MEAN CORPUSCULAR VOLUME 89 fL (80-99); MEAN PLATELET VOLUME 11.4 fL (9.0-12.2); MONOCYTES # (AUTO) 0.6 10^3/uL (0.0-1.0); MONOCYTES % (AUTO) 6 % (0-12); NEUTROPHILS # (AUTO) 8.9 10^3/uL (1.8-7.8); NEUTROPHILS % (AUTO) 85 % (42-75); PLATELET COUNT 263 10^3/uL (130-400); WHITE BLOOD COUNT 10.5 10^3/uL (4.3-11.0)
[2021-01-26 05:23] LABS: ALBUMIN 3.5 GM/DL (3.2-4.5)
[2021-01-26 05:24] LABS: POTASSIUM 3.7 MMOL/L (3.6-5.0)
[2021-01-26 05:25] LABS: CALCIUM 9.2 MG/DL (8.5-10.1)
[2021-01-26 05:26] LABS: INR 1.3 (0.8-1.4); PROTHROMBIN TIME PATIENT 16.4 SEC (12.2-14.7); TOTAL PROTEIN 6.1 GM/DL (6.4-8.2)
[2021-01-26 05:28] LABS: BILIRUBIN,TOTAL 1.7 MG/DL (0.1-1.0)
[2021-01-26 05:30] LABS: CREATININE SERUM 0.55 MG/DL (0.60-1.30)
[2021-01-26] MEDS: LORazepam INJ 2 MG/ML (ATIVAN) VIAL IVP PRN ×2 (06:30→23:04)
[2021-01-26] MEDS: MEROPENEM 1,000 MG in WATER (STERILE) FOR INJECTION 20 ML IV SCH ×3 (06:30→20:46)
[2021-01-26] MEDS: METOCLOPRAMIDE INJ 10 MG/2 ML (REGLAN) IVP SCH ×3 (06:30→20:46)
[2021-01-26] MEDS: ONDANSETRON 4 MG/2 ML (SDV) Z0FRAN IVP PRN ×2 (06:35→08:59)
[2021-01-26 08:00] VITALS: BP 144/72
[2021-01-26] MEDS: DOCUSATE SODIUM 100 MG (COLACE) CAP PO SCH (08:26)
[2021-01-26] MEDS: polyethylene glycoL POWDER 17 GM (MIRALAX) PACK PO SCH ×2 (08:26→21:07)
[2021-01-26] MEDS: SIMETHICONE 80 MG (MYLICON) CHEW PO SCH ×4 (08:26→21:07)
[2021-01-26] MEDS: SENNA W/DOCUSATE (SENOKOT S) TABLET PO SCH ×2 (08:26→21:07)
[2021-01-26] MEDS: LACTOBACILLUS Acidoph/Bulgar 1 GM (LACTINEX) PACKET PO SCH ×2 (08:27→16:44)
[2021-01-26] MEDS: VITAMIN D3 10 MCG (400 UNITS) TABLET PO SCH (08:27)
[2021-01-26] MEDS: PANTOPRAZOLE 40 MG (PROTONIX) TAB PO SCH ×2 (08:27→20:46)
--- NOTE | 2021-01-26 08:58 | PM&R Progress Note ---
Subjective HPI/CC On Admission Date Seen by Provider: Jan 26, 2021 Time Seen by Provider: 08:45 Subjective/Events-last exam 01/26/2021: Pt very frail and weak Ativan and Xanax made her very drowsy Scopolamine Patch maintained, will inquire with PCP whether to continue that Pt is at high risk for decompensation Ammonia is normal INR 1.5 Alk phos 495 01/25/2021: Patient doing really well Central line leaking is much improved Use sandbag and a pressure dressing Nausea is improved Scopolamine patch maintained Checking labs in the morning 01/24/2021: Patient had been doing pretty well until sustaining a fall in the bathroom It took a Stephen lift and 4 people to get her up Dr. Garcia ordered IV Lasix and iron infusion Vitamin D was also started Alk phos remains high at 495 Review of Systems General: Fatigue, Malaise Neurological: Weakness Objective Exam Vital Signs Vital Signs Date Time Temp Pulse Resp B/P (MAP) Pulse Ox O2 Delivery O2 Flow Rate FiO2 01/26/21 21:10 Room Air 01/26/21 20:00 36.1 102 20 128/68 (88) 94 01/24/21 10:15 0.00 Capillary Refill : General Appearance: No Apparent Distress, WD/WN, Chronically ill, Obese, Other (Very debilitated) HEENT: PERRL/EOMI, Normal ENT Inspection, Pharynx Normal Neck: Full Range of Motion, Normal Inspection, Non Tender, Supple, Carotid Bruit Respiratory: Chest Non Tender, Lungs Clear, Normal Breath Sounds, No Accessory Muscle Use, No Respiratory Distress Cardiovascular: Regular Rate, Rhythm, No Edema, No Gallop, No JVD, No Murmur, Normal Peripheral Pulses Gastrointestinal: Normal Bowel Sounds, No Organomegaly, No Pulsatile Mass, Non Tender, Soft Rectal: Deferred Back: Normal Inspection, No CVA Tenderness, No Vertebral Tenderness Extremity: Normal Capillary Refill, Normal Inspection, Normal Range of Motion, Non Tender, No Calf Tenderness, No Pedal Edema Neurologic/Psychiatric: Alert, Oriented x3, No 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, 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 FIM Transfers Therapy Code Descriptions/Definitions Functional [place] Measure: 0=Not Assessed/NA 4=Minimal Assistance 1=Total Assistance 5=Supervision or Setup 2=Maximal Assistance 6=Modified [place] 3=Moderate Assistance 7=Complete IndependenceSCALE: Activities may be completed with or without assistive devices. 8-Zgmiezydej-mwqxcbs completes the activity by him/herself with no assistance f rom a helper. 5-Set-up or Clean-up Assistance-helper sets up or cleans up; patient completes activity. [place] assists only prior to or following the activity. 4-Supervision or Touching Assistance-helper provides verbal cues and/or touching/steadying and/or contact guard assistance as patient completes activity. Assistance may be provided throughout the activity or intermittently. 3-Partial/Moderate Assistance-helper does LESS THAN HALF the effort. [place] lifts, holds or supports trunk or limbs, but provides less than half the effort. 2-Substantial/Maximal Assistance-helper does MORE THAN HALF the effort. [place] lifts or holds trunk or limbs and provides more than half the effort. 7-Zfytsslkf-dbemec does ALL the effort. Patient does none of the effort to complete the activity. Or, the assistance of 2 or more helpers is required for the patient to complete the activity. If activity was not attempted, code reason: 7-Patient Refused. 9-Not Applicable-not attempted and the patient did not perform the activity before the current illness, exacerbation or injury. 10-Not Attempted due to Environmental Limitations-(lack of equipment, weather restraints, etc.). 88-Not Attempted due to Medical Conditions or Safety Concerns. Roll Left to Right (QC): 4 Sit to Lying (QC): 2 Sit to Stand (QC): 3 Chair/Udp-fj-[place] Xfer(QC): 3 Car Transfer (QC): 88 Gait Training Does the Patient Walk?: Yes Distance: 5 steps Walk 10 feet (QC): 4 Walk 50 ft with 2 Turns(QC): 88 Walk 150 ft (QC): 88 Walking 10ft/uneven surface-QC: 88 Gait Assistive Device: FWW Wheelchair Training Does the Pt Use a Wheelchair?: Yes Distance: 10' Wheel 50 ft with 2 turns (QC): 88 Wheel 150 ft (QC): 88 Type of Wheelchair: Manual Stair Training 1 Step (curb) (QC): 88 4 Steps (QC): 88 12 Steps (QC): 88 Balance Picking up an Object (QC): 88 ADL-Treatment Eating (QC): 6 (Per pt report, IND with breakfast.) Oral Hygiene (QC): 5 (based on clincial judgment.) Shower/Bathe Self (QC): 1 (Assist x2 required in stand.) Upper Body Dressing (QC): 5 (set up with brisket puller night gown.) Lower Body Dressing (QC): 1 (Pt able to thread BLEs into pants, assist with pant hike. Assist x2 required in stand.) On/Off Footwear (QC): 1 (total assist donning gripper socks.) Toileting Hygiene (QC): 1 (Assist x2 required for clothing management.) Assessment/Plan Assessment and Plan Assess & Plan/Chief Complaint Assessment: Acute myopathy ACUTE INJURY HEPATITIS ELEVATED ALKALINE PHOSPHATASE LEUKOCYTOSIS URINARY TRACT INFECTION, SEPSIS HYPERBILIRUBINEMIA WEIGHT LOSS MALAISE ANOREXIA NAUSEA EMESIS WEAKNESS AND FALLING EPISODES DIET CONTROLLED DIABETES MELLITUS ANEMIA IRON DEFICIENCY HYPOKALEMIA Plan: Aggressive physical therapy Pain control Monitor weight loss 01/24/2021: Fall risk Monitor closely 01/25/2021: Check labs in the morning including liver function test along with ammonia and GGT Supportive care 01/26/2021: Supportive care Monitor liver enzymes (1) Myopathy RUSSEL MAYERS DO Jan 26, 2021 08:58
[2021-01-26] MEDS: SALIVA STIMULANT MOUTH SPRAY (BIOTENE) 1.5 OZ MM PRN (08:59)
[2021-01-26] MEDS: ONDANSETRON 4 MG (ZOFRAN) ORAL DISSOLVE TAB PO PRN (11:52)
--- NOTE | 2021-01-26 11:59 | Occupational Ther Daily Note ---
OT Current Status-Daily Note Subjective Pt. alert in recliner upon entry. Pt no c/o pain just discomfort and states feeling "hungover", did not rate discomfort level. Pt. agrees to therapy. Co- Treat with PT ([id number]) Mental Status/Objective Patient Orientation: Person, Place, Time, Situation Attachments: Central Line ADL-Treatment Co-Treat with PT ([id number])2 clinicians required for safety and education. PT focusing on LE strengthening, transfers, and standing while OT focusing on UE strengthening, functional endurance, and ADLs. Pt. Max A x2 sit to stand from recliner then CGA SPT using FWW to shower chair with cut out one to stand and pivot while the other supports and switches out chairs. Pt. transported using shower chair to in room shower. Pt. assist to take off hospital gown to cover central line size with press and seal and tape. Pt. able to cleanse face, chest, abdomen, B UE, and B upper LE. Pt. required assist to cleanse Lower LE, toes and buttocks. Pt. requested to use the toilet, was unable to produce anything when bucket placed under shower chair cut out. Pt. able to help lift toes to thread into brief and short holes. Pt. Max A x2 to stand using grabbars one to stabilize and stand while the other pulled brief and shorts up over hips, and traded out shower chair for w/c. Therapy Code Descriptions/Definitions Functional [place] Measure: 0=Not Assessed/NA 4=Minimal Assistance 1=Total Assistance 5=Supervision or Setup 2=Maximal Assistance 6=Modified [place] 3=Moderate Assistance 7=Complete IndependenceSCALE: Activities may be completed with or without assistive devices. 7-Ufvyuykkbr-rmccpen completes the activity by him/herself with no assistance from a helper. 5-Set-up or Clean-up Assistance-helper sets up or cleans up; patient completes activity. [place] assists only prior to or following the activity. 4-Supervision or Touching Assistance-helper provides verbal cues and/or touching/steadying and/or contact guard assistance as patient completes activity. Assistance may be provided throughout the activity or intermittently. 3-Partial/Moderate Assistance-helper does LESS THAN HALF the effort. [place] lifts, holds or supports trunk or limbs, but provides less than half the effort. 2-Substantial/Maximal Assistance-helper does MORE THAN HALF the effort. [place] lifts or holds trunk or limbs and provides more than half the effort. 0-Jubudmmpz-snmvjs does ALL the effort. Patient does none of the effort to c omplete the activity. Or, the assistance of 2 or more helpers is required for the patient to complete the activity. If activity was not attempted, code reason: 7-Patient Refused. 9-Not Applicable-not attempted and the patient did not perform the activity before the current illness, exacerbation or injury. 10-Not Attempted due to Environmental Limitations-(lack of equipment, weather restraints, etc.). 88-Not Attempted due to Medical Conditions or Safety Concerns. Bathing Location: L Arm, R Arm, L Upper Leg, R Upper Leg, L Lower Leg (including foot), R Lower Leg (including foot), Chest, Abdomen, Buttocks, P erineal Area Shower/Bathe Self (QC): 3 (Min A. to wash feet, lower LE, and buttocks. ) Lower Body Dressing (QC): 2 (Required Min A to thread feet into porper holes, Max A x2 to pull up over hips.) On/Off Footwear: 1 Toileting Hygiene (QC): 1 Other Treatment Co-Treat with PT ([id number]) 2 clinicians required for safety and education. PT focusing on LE strengthening, transfers, and standing while OT focusing on UE strengthening, functional endurance, and ADLs. Pt. transported to therapy gym using w/c. Pt. stood in parallel bars and ambu. with w/c and IV pole behind and PT in front for safety, view PT note for progress. Pt. left in care of PT. All needs met in gym. OT Short Term Goals Short Term Goals Time Frame: Feb 06, 2021 Toileting hygiene: 3 Shower/bathe self: 3 Lower body dressin Putting on/taking off footwear: 3 OT Herpetology Teacher Goals Herpetology Teacher Goals Time Frame: Feb 20, 2021 Eating (QC): 6 Oral Hygiene (QC): 6 Toileting Hygiene (QC): 6 Shower/Bathe Self (QC): 6 Upper Body Dressing (QC): 6 Lower Body Dressing (QC): 6 On/Off Footwear (QC): 6 Additional Goals: 1-Demonstrate ADL Tasks, 2-Verbalize Understanding, 3- ImproveStrength/Altaf 1=Demonstrate adherence to instructed precautions during ADL tasks. 2=Patient will verbalize/demonstrate understanding of assistive devices/modifications for ADL. 3=Patient will improve strength/tolerance for activity to enable patient to perform ADL's. OT Education/Plan Problem List/Assessment Assessment: Decreased Activ Tolerance, Decreased UE Strength, Dependent Transfers, Impaired Funct Balance, Impaired Self-Care Skills, Restricted Funct UE ROM Discharge Recommendations Plan/Recommendations: Continue POC Treatment Plan/Plan of Care Patient would benefit from OT for education, treatment and training to promote independence in ADL's, mobility, safety and/or upper extremity function for ADL's. Plan of Care: ADL Retraining, Functional Mobility, Group Exercise/Act as Ind, UE Funct Exercise/Act Treatment Duration: Feb 20, 2021 Frequency: At least 5 of 7 days/Wk (IRF) Estimated Hrs Per Day: 1.5 hours per day Rehab Potential: Fair Time/GCodes Start Time: 10:00 Stop Time: 11:30 Total Time Billed (hr/min): 90 Billed Treatment Time 1 visit- ADL 5 (75 min), Ex 1 (15 min) Co-Treat with PT ([id number]) Individual ([id number]) MARIELA DA SILVA Jan 26, 2021 11:59
--- NOTE | 2021-01-26 12:51 | Physical Therapy Daily Note ---
PT Daily Note-Current Subjective Pt in bathroom w/ OT upon arrival and agrees to co-treat. Pt exhibits signs of fatigue throughout tx. Mental Status Patient Orientation: Person, Place Transfers SCALE: Activities may be completed with or without assistive devices. 1-Xgvtoulbts-yfihiel completes the activity by him/herself with no assistance from a helper. 5-Set-up or Clean-up Assistance-helper sets up or cleans up; patient completes activity. [place] assists only prior to or following the activity. 4-Supervision or Touching Assistance-helper provides verbal cues and/or touching/steadying and/or contact guard assistance as patient completes activity. Assistance may be provided throughout the activity or intermittently. 3-Partial/Moderate Assistance-helper does LESS THAN HALF the effort. [place] lifts, holds or supports trunk or limbs, but provides less than half the effort. 2-Substantial/Maximal Assistance-helper does MORE THAN HALF the effort. [place] lifts or holds trunk or limbs and provides more than half the effort. 3-Qlyqzytmi-fmrrqp does ALL the effort. Patient does none of the effort to complete the activity. Or, the assistance of 2 or more helpers is required for the patient to complete the activity. If activity was not attempted, code reason: 7-Patient Refused. 9-Not Applicable-not attempted and the patient did not perform the activity before the current illness, exacerbation or injury. 10-Not Attempted due to Environmental Limitations-(lack of equipment, weather restraints, etc.). 88-Not Attempted due to Medical Conditions or Safety Concerns. Sit to Lying (QC): 2 Sit to Stand (QC): 2 Chair/Hzk-qa-Sdgeq Xfer(QC): 2 Gait Training Does the Patient Walk?: Yes Distance: 6' Gait Assistive Device: Parallel Bars Pt has slow, shuffling gait and WB through UE. Pt has fear of falling and occasionally yells out during gait. Pt amb in // bars w/ WC and IV following. Wheelchair Training Does the Pt Use a Wheelchair?: Yes Wheel 50 ft with 2 turns (QC): 4 Wheel 150 ft (QC): 4 Type of Wheelchair: Manual Exercises Supine Ex: Scooting Seated Therapy Exercises: Sit to stand Treatments Co-Treat with OT [id number]) 2 clinicians required for safety and education. PT focusing on LE strengthening, transfers, and standing while OT focusing on UE strengthening, functional endurance, and ADLs. Pt sit to stand from shower chair, pulling up on railing in BR and MaxA x2 as shower chair is moved and WC is placed behind pt and pants are donned. Pt then sits in WC and has RB. Pt then taken to // bars in therapy gym. Pt sit to stand, pulling up from // bars MaxA and amb 6'. Pt has short RB and OT leaves tx at this time. Pt instructed on sit to stand again, pt unable to complete sit to stand d/t fatigue. Pt then instructed to propel WC back to room with RB as needed. Once in room, pt sit to stand from WC and transfers to bed MaxA, pulling up on railing of bed w/ L UE and pushing from WC w/ R UE. Pt sits EOB and states she feels nauseous. RN notified at this time. Pt remains EOB approx 5 mins SBA until nausea subsides. Pt then sit to supine MaxA, as pt is unable to bring BLE into bed. Once in bed, pt scoots towards HOB. Pt remains in bed with all needs met, call light in hand. Assessment Current Status: Fair Progress Pt limited by weakness and fatigue, as well as self limits d/t fear. PT Short Term Goals Short Term Goals Time Frame: Jan 30, 2021 Roll Left & Right: 6 Sit to lyin Lying to sitting on side of be: 3 Sit to stand: 3 Chair/vla-wv-erljf transfer: 4 PT Mcfp Goals Service Attendant [employer] Goals PT Mcfp Goals Time Frame: Feb 13, 2021 Roll Left & Right (QC): 6 Sit to Lying (QC): 5 Lying-Sitting on Side/Bed(QC): 5 Sit to Stand (QC): 4 Chair/Rwt-xs-Olcid Xfer(QC): 4 Toilet Transfer (QC): 4 Car Transfer (QC): 4 Does the Patient Walk: Yes Walk 10 feet (QC): 4 Walk 50ft with 2 Turns (QC): 4 Walk 150 ft (QC): 4 Walking 10ft on Uneven Surface: 4 1 Step (curb) (QC): 4 4 Steps (QC): 4 12 Steps (QC): 88 Picking up an Object (QC): 4 Wheel 50 feet with 2 turns (QC: 9 Wheel 150 feet: 9 PT Plan Treatment/Plan Treatment Plan: Continue Plan of Care Treatment Plan: Bed Mobility, Education, Functional Activity Altaf, Functional Strength, Group Therapy, Gait, Safety, Therapeutic Exercise, Transfers Treatment Duration: Feb 13, 2021 Frequency: At least 5 of 7 days/Wk (IRF) Estimated Hrs Per Day: 1.5 hours per day Patient and/or Family Agrees t: Yes Time/GCodes Time In: 1100 Time Out: 1200 Total Billed Treatment Time: 60 Total Billed Treatment 1, FA x3, [facility] KALLIE GRAYSON BUSINESS INTELLIGENCE ETL DEVELOPER Jan 26, 2021 12:51
[2021-01-26] MEDS ORDERED: FLU QUADRIvalent (3YOA+) 60 mcg/0.5 ml 2021-22(AFLURIA) IM ONE (14:15)
--- NOTE | 2021-01-26 15:03 | Physical Therapy Daily Note ---
PT Daily Note-Current Subjective Pt in upon arrival and agrees to tx. Pt states she is "very worn out" in pm. Mental Status Patient Orientation: Person, Place Transfers SCALE: Activities may be completed with or without assistive devices. 2-Grnulbolrt-buguevq completes the activity by him/herself with no assistance from a helper. 5-Set-up or Clean-up Assistance-helper sets up or cleans up; patient completes activity. [place] assists only prior to or following the activity. 4-Supervision or Touching Assistance-helper provides verbal cues and/or touching/steadying and/or contact guard assistance as patient completes activity. Assistance may be provided throughout the activity or intermittently. 3-Partial/Moderate Assistance-helper does LESS THAN HALF the effort. [place] li fts, holds or supports trunk or limbs, but provides less than half the effort. 2-Substantial/Maximal Assistance-helper does MORE THAN HALF the effort. [place] lifts or holds trunk or limbs and provides more than half the effort. 3-Wyppuqnzq-ljkcqc does ALL the effort. Patient does none of the effort to complete the activity. Or, the assistance of 2 or more helpers is required for the patient to complete the activity. If activity was not attempted, code reason: 7-Patient Refused. 9-Not Applicable-not attempted and the patient did not perform the activity before the current illness, exacerbation or injury. 10-Not Attempted due to Environmental Limitations-(lack of equipment, weather restraints, etc.). 88-Not Attempted due to Medical Conditions or Safety Concerns. Sit to Stand (QC): 3 Exercises Seated Therapy Exercises: Ankle pumps, Sit to stand, Long arc quads, Hip abd/add Seated Reps: 10 When instructed on hip flexion, pt states she is unable to complete ex d/t weakness. Treatments Pt in , completes seated ex. Pt given HEP forms for seated and supine ex. Pt completes seated ex and is demonstrated supine ex by SENIOR AIR DIRECTOR. At this time, RN enters room and states she will give pt suppository. Pt then sit to stand ModA w/ FWW in front and SENIOR AIR DIRECTOR A lift up from chair. Pt holds standing balance as RN places suppository. Pt then returns to . Pt left with all needs met, call light in hand. Assessment Current Status: Fair Progress Pt limited by weakness and fatigue. Pt requires less A for sit to stand than in am tx. PT Short Term Goals Short Term Goals Time Frame: Jan 30, 2021 Roll Left & Right: 6 Sit to lyin Lying to sitting on side of be: 3 Sit to stand: 3 Chair/sso-ls-xgsvj transfer: 4 PT Correction Goals Correction Goals PT Summer Nanny Goals Time Frame: Feb 13, 2021 Roll Left & Right (QC): 6 Sit to Lying (QC): 5 Lying-Sitting on Side/Bed(QC): 5 Sit to Stand (QC): 4 Chair/Qpz-sc-Tmjsy Xfer(QC): 4 Toilet Transfer (QC): 4 Car Transfer (QC): 4 Does the Patient Walk: Yes Walk 10 feet (QC): 4 Walk 50ft with 2 Turns (QC): 4 Walk 150 ft (QC): 4 Walking 10ft on Uneven Surface: 4 1 Step (curb) (QC): 4 4 Steps (QC): 4 12 Steps (QC): 88 Picking up an Object (QC): 4 Wheel 50 feet with 2 turns (QC: 9 Wheel 150 feet: 9 PT Plan Treatment/Plan Treatment Plan: Continue Plan of Care Treatment Plan: Bed Mobility, Education, Functional Activity Altaf, Functional Strength, Group Therapy, Gait, Safety, Therapeutic Exercise, Transfers Treatment Duration: Feb 13, 2021 Frequency: At least 5 of 7 days/Wk (IRF) Estimated Hrs Per Day: 1.5 hours per day Patient and/or Family Agrees t: Yes Safety Risks/Education Patient Education: Issued Written HEP Teaching Recipient: Patient Teaching Methods: Demonstration, Handout, Discussion Response to Teaching: Verbalize Understanding, Return Demonstration Time/GCodes Time In: 1430 Time Out: 1500 Total Billed Treatment Time: 30 Total Billed Treatment 1, Ex x2 KALLIE GRAYSON SENIOR AIR DIRECTOR Jan 26, 2021 15:03
[2021-01-26] MEDS: NS W/KCL 20 MEQ/L 1,000 ML IV SCH (16:44)
[2021-01-26 20:00] VITALS: BP 128/68
[2021-01-27] MEDS: fentaNYL INJ 100 MCG/2 ML AMP IVP PRN ×4 (01:36→21:36)
[2021-01-27] MEDS: MEROPENEM 1,000 MG in WATER (STERILE) FOR INJECTION 20 ML IV SCH ×3 (06:21→21:27)
[2021-01-27] MEDS: VITAMIN D3 10 MCG (400 UNITS) TABLET PO SCH (06:21)
[2021-01-27] MEDS: METOCLOPRAMIDE INJ 10 MG/2 ML (REGLAN) IVP SCH ×3 (06:21→21:28)
[2021-01-27 08:00] VITALS: BP 131/74
[2021-01-27] MEDS: ONDANSETRON 4 MG/2 ML (SDV) Z0FRAN IVP PRN (08:59)
[2021-01-27] MEDS ORDERED: FUROSEMIDE 40 MG/4 ML INJ (LASIX) IVP ONE (09:00)
--- NOTE | 2021-01-27 09:16 | PM&R Progress Note ---
Subjective HPI/CC On Admission Date Seen by Provider: Jan 27, 2021 Time Seen by Provider: 11:30 Subjective/Events-last exam 01/27/2021: Pt having some difficulty 78% on room air Noncompliant with CPAP at home Was restless up and down last night May need to transfer to higher level per PCP Patient appears to have liver dysfunction due to morbid obesity causing downward spiral 01/26/2021: Pt very frail and weak Ativan and Xanax made her very drowsy Scopolamine Patch maintained, will inquire with PCP whether to continue that Pt is at high risk for decompensation Ammonia is normal INR 1.5 Alk phos 495 01/25/2021: Patient doing really well Central line leaking is much improved Use sandbag and a pressure dressing Nausea is improved Scopolamine patch maintained Checking labs in the morning 01/24/2021: Patient had been doing pretty well until sustaining a fall in the bathroom It took a Stephen lift and 4 people to get her up Dr. Garcia ordered IV Lasix and iron infusion Vitamin D was also started Alk phos remains high at 495 Review of Systems General: Fatigue, Malaise Pulmonary: Dyspnea Objective Exam Vital Signs Vital Signs Date Time Temp Pulse Resp B/P (MAP) Pulse Ox O2 Delivery O2 Flow Rate FiO2 01/28/21 03:09 35.7 01/27/21 21:00 Room Air 01/27/21 20:00 87 18 162/75 (104) 98 2.00 Capillary Refill : General Appearance: No Apparent Distress, WD/WN, Chronically ill, Obese, Other (Very debilitated) HEENT: PERRL/EOMI, Normal ENT Inspection, Pharynx Normal Neck: Full Range of Motion, Normal Inspection, Non Tender, Supple, Carotid Bruit Respiratory: Chest Non Tender, Lungs Clear, Normal Breath Sounds, No Accessory Muscle Use, No Respiratory Distress Cardiovascular: Regular Rate, Rhythm, No Edema, No Gallop, No JVD, No Murmur, Normal Peripheral Pulses Gastrointestinal: Normal Bowel Sounds, No Organomegaly, No Pulsatile Mass, Non Tender, Soft Rectal: Deferred Back: Normal Inspection, No CVA Tenderness, No Vertebral Tenderness Extremity: Normal Capillary Refill, Normal Inspection, Normal Range of Motion, Non Tender, No Calf Tenderness, No Pedal Edema Neurologic/Psychiatric: Alert, Oriented x3, No 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, search director II- XII Norm as Tested, Abnormal Gait, Depressed Affect, Motor Weakness (Generalized 3/5 all extremities) Skin: Normal Color, Warm/Dry Lymphatic: No Adenopathy Results/Procedures Lab Laboratory Tests 01/27/21 09:55 Patient resulted labs reviewed. FIM Transfers Therapy Code Descriptions/Definitions Functional [place] Measure: 0=Not Assessed/NA 4=Minimal Assistance 1=Total Assistance 5=Supervision or Setup 2=Maximal Assistance 6=Modified [place] 3=Moderate Assistance 7=Complete IndependenceSCALE: Activities may be completed with or without assistive devices. 8-Bsurxphleg-qwgwufy completes the activity by him/herself with no assistance from a helper. 5-Set-up or Clean-up Assistance-helper sets up or cleans up; patient completes activity. [place] assists only prior to or following the activity. 4-Supervision or Touching Assistance-helper provides verbal cues and/or touching/steadying and/or contact guard assistance as patient completes activity. Assistance may be provided throughout the activity or intermittently. 3-Partial/Moderate Assistance-helper does LESS THAN HALF the effort. [place] lifts, holds or supports trunk or limbs, but provides less than half the effort. 2-Substantial/Maximal Assistance-helper does MORE THAN HALF the effort. [place] lifts or holds trunk or limbs and provides more than half the effort. 5-Vzxwjrinz-shbmer does ALL the effort. Patient does none of the effort to complete the activity. Or, the assistance of 2 or more helpers is required for the patient to complete the activity. If activity was not attempted, code reason: 7-Patient Refused. 9-Not Applicable-not attempted and the patient did not perform the activity before the current illness, exacerbation or injury. 10-Not Attempted due to Environmental Limitations-(lack of equipment, weather restraints, etc.). 88-Not Attempted due to Medical Conditions or Safety Concerns. Roll Left to Right (QC): 4 Sit to Lying (QC): 2 Sit to Stand (QC): 3 Chair/Eyw-fg-Szuvt Xfer(QC): 2 Car Transfer (QC): 88 Gait Training Does the Patient Walk?: Yes Distance: 6' Walk 10 feet (QC): 4 Walk 50 ft with 2 Turns(QC): 88 Walk 150 ft (QC): 88 Walking 10ft/uneven surface-QC: 88 Gait Assistive Device: Parallel Bars Wheelchair Training Does the Pt Use a Wheelchair?: Yes Distance: 10' Wheel 50 ft with 2 turns (QC): 4 Wheel 150 ft (QC): 4 Type of Wheelchair: Manual Stair Training 1 Step (curb) (QC): 88 4 Steps (QC): 88 12 Steps (QC): 88 Balance Picking up an Object (QC): 88 ADL-Treatment Eating (QC): 6 (Per pt report, IND with breakfast.) Oral Hygiene (QC): 5 (based on clincial judgment.) Bathing Location: L Arm, R Arm, L Upper Leg, R Upper Leg, L Lower Leg (including foot), R Lower Leg (including foot), Chest, Abdomen, Buttocks, Perineal Area Shower/Bathe Self (QC): 3 (Min A. to wash feet, lower LE, and buttocks. ) Upper Body Dressing (QC): 5 (set up with focus puller night gown.) Lower Body Dressing (QC): 2 (Required Min A to thread feet into porper holes, Max A x2 to pull up over hips.) On/Off Footwear (QC): 1 Toileting Hygiene (QC): 1 Assessment/Plan Assessment and Plan Assess & Plan/Chief Complaint Assessment: Acute myopathy ACUTE INJURY HEPATITIS ELEVATED ALKALINE PHOSPHATASE LEUKOCYTOSIS URINARY TRACT INFECTION, SEPSIS HYPERBILIRUBINEMIA WEIGHT LOSS MALAISE ANOREXIA NAUSEA EMESIS WEAKNESS AND FALLING EPISODES DIET CONTROLLED DIABETES MELLITUS ANEMIA IRON DEFICIENCY HYPOKALEMIA Plan: Aggressive physical therapy Pain control Monitor weight loss 01/24/2021: Fall risk Monitor closely 01/25/2021: Check labs in the morning including liver function test along with ammonia and GGT Supportive care 01/26/2021: Supportive care Monitor liver enzymes 01/27/2021: Liver failure dysfunction may need higher level of care (1) Myopathy RUSSEL MAYERS DO Jan 27, 2021 09:16
[2021-01-27] MEDS: DOCUSATE SODIUM 100 MG (COLACE) CAP PO SCH (09:37)
[2021-01-27] MEDS: SENNA W/DOCUSATE (SENOKOT S) TABLET PO SCH ×2 (09:37→21:27)
[2021-01-27] MEDS: LACTOBACILLUS Acidoph/Bulgar 1 GM (LACTINEX) PACKET PO SCH ×3 (09:40→17:19)
[2021-01-27] MEDS: PANTOPRAZOLE 40 MG (PROTONIX) TAB PO SCH ×2 (09:40→21:27)
[2021-01-27] MEDS: SIMETHICONE 80 MG (MYLICON) CHEW PO SCH ×4 (09:40→21:27)
[2021-01-27 10:30] LABS: HEMATOCRIT 32 % (35-52); HEMOGLOBIN 9.9 g/dL (11.5-16.0); MEAN CORPUSCULAR HEMOGLOBIN 28 pg (25-34); MEAN CORPUSCULAR HGB CONC 31 g/dL (32-36); MEAN CORPUSCULAR VOLUME 91 fL (80-99); MEAN PLATELET VOLUME 11.3 fL (9.0-12.2); PLATELET COUNT 306 10^3/uL (130-400); WHITE BLOOD COUNT 10.7 10^3/uL (4.3-11.0)
[2021-01-27 10:46] LABS: ALBUMIN 3.4 GM/DL (3.2-4.5); BILIRUBIN,TOTAL 1.3 MG/DL (0.1-1.0); CALCIUM 9.5 MG/DL (8.5-10.1); CREATININE SERUM 0.55 MG/DL (0.60-1.30); POTASSIUM 3.7 MMOL/L (3.6-5.0); TOTAL PROTEIN 6.2 GM/DL (6.4-8.2)
[2021-01-27] MEDS: polyethylene glycoL POWDER 17 GM (MIRALAX) PACK PO SCH ×2 (11:36→21:26)
--- NOTE | 2021-01-27 11:47 | Occupational Ther Daily Note ---
OT Current Status-Daily Note Subjective Pt. dozing in bed, easy to wake. Pt. agrees to therapy.Co-Treat with PT ([id number]) . Mental Status/Objective Patient Orientation: Person, Place, Time, Situation ADL-Treatment Pt declined shower and change of clothing. Pt. Mod A supine to sit. Pt. Max A x2 for sit to stand then using FWW to SPT 3 steps to turn for w/c placement behind is CGA. Pt. transported in w/c to sink to perform oral hygiene independently. Pt. able to groom sides of hair, due to central line assist required for back of hair grooming. Pt. transported using w/c into room performed B UE exercise in all planes using medium resistance theraband 10 reps ea. no rest breaks required. Skilled instruction necessary for proper form, technique and safety. Therapy Code Descriptions/Definitions Functional [place] Measure: 0=Not Assessed/NA 4=Minimal Assistance 1=Total Assistance 5=Supervision or Setup 2=Maximal Assistance 6=Modified [place] 3=Moderate Assistance 7=Complete IndependenceSCALE: Activities may be completed with or without assistive devices. 0-Muhzagfxci-eroqkux completes the activity by him/herself with no assistance from a helper. 5-Set-up or Clean-up Assistance-helper sets up or cleans up; patient completes activity. [place] assists only prior to or following the activity. 4-Supervision or Touching Assistance-helper provides verbal cues and/or touching/steadying and/or contact guard assistance as patient completes activity. Assistance may be provided throughout the activity or intermittently. 3-Partial/Moderate Assistance-helper does LESS THAN HALF the effort. [place] lifts, holds or supports trunk or limbs, but provides less than half the effort. 2-Substantial/Maximal Assistance-helper does MORE THAN HALF the effort. [place] lifts or holds trunk or limbs and provides more than half the effort. 5-Qeoiygzsg-wupeus does ALL the effort. Patient does none of the effort to complete the activity. Or, the assistance of 2 or more helpers is required for the patient to complete the activity. If activity was not attempted, code reason: 7-Patient Refused. 9-Not Applicable-not attempted and the patient did not perform the activity before the current illness, exacerbation or injury. 10-Not Attempted due to Environmental Limitations-(lack of equipment, weather restraints, etc.). 88-Not Attempted due to Medical Conditions or Safety Concerns. Oral Hygiene (QC): 6 Other Treatment Co-Treat with PT ([id number]) 2 clinicians required for safety and instruction. PT focusing on LE strength, transfers, and walking while OT focusing on ADLs, UE strength, and endurance. Pt. participated in w/c mobility to therapy gym, see PT note for progress. Pt. required rest break once to therapy gym. Pt. left in care of PT all needs met in gym. Education OT Patient Education: Correct positioning, Exercise program, Home exercise program Teaching Recipient: Patient Teaching Methods: Demonstration, Discussion Response to Teaching: Verbalize Understanding, Return Demonstration OT Short Term Goals Short Term Goals Time Frame: Feb 06, 2021 Toileting hygiene: 3 Shower/bathe self: 3 Lower body dressin Putting on/taking off footwear: 3 OT Tape Librarian Goals Snf Goals Time Frame: Feb 20, 2021 Eating (QC): 6 Oral Hygiene (QC): 6 Toileting Hygiene (QC): 6 Shower/Bathe Self (QC): 6 Upper Body Dressing (QC): 6 Lower Body Dressing (QC): 6 On/Off Footwear (QC): 6 Additional Goals: 1-Demonstrate ADL Tasks, 2-Verbalize Understanding, 3- ImproveStrength/Altaf 1=Demonstrate adherence to instructed precautions during ADL tasks. 2=Patient will verbalize/demonstrate understanding of assistive devices/modifications for ADL. 3=Patient will improve strength/tolerance for activity to enable patient to perform ADL's. OT Education/Plan Problem List/Assessment Assessment: Decreased Activ Tolerance, Decreased UE Strength, Impaired Coordination, Impaired Self-Care Skills, Restricted Funct UE ROM Discharge Recommendations Plan/Recommendations: Continue POC Treatment Plan/Plan of Care Patient would benefit from OT for education, treatment and training to promote independence in ADL's, mobility, safety and/or upper extremity function for ADL's. Plan of Care: ADL Retraining, Functional Mobility, Group Exercise/Act as Ind, UE Funct Exercise/Act Treatment Duration: Feb 20, 2021 Frequency: At least 5 of 7 days/Wk (IRF) Estimated Hrs Per Day: 1.5 hours per day Rehab Potential: Fair Time/GCodes Start Time: 10:30 Stop Time: 11:30 Total Time Billed (hr/min): 60 Billed Treatment Time 1 visit- ADL 2 (35 min), EX 2 (25 min) Co-Treat with PT ([id number]) Individual ([id number]) MARIELA DA SILVA Jan 27, 2021 11:47
--- NOTE | 2021-01-27 12:15 | Physical Therapy Daily Note ---
PT Daily Note-Current Subjective Pt working with OT in room upon arrival. Pt agrees to PT/OT partial co-treat. Pain Location: No Pain Reported Mental Status Patient Orientation: Person, Place, Situation Attachments: Oxygen, IV Transfers SCALE: Activities may be completed with or without assistive devices. 6-Kwmohpxdnm-eupvifi completes the activity by him/herself with no assistance from a helper. 5-Set-up or Clean-up Assistance-helper sets up or cleans up; patient completes activity. [place] assists only prior to or following the activity. 4-Supervision or Touching Assistance-helper provides verbal cues and/or touching/steadying and/or contact guard assistance as patient completes activity. Assistance may be provided throughout the activity or intermittently. 3-Partial/Moderate Assistance-helper does LESS THAN HALF the effort. [place] lifts, holds or supports trunk or limbs, but provides less than half the effort. 2-Substantial/Maximal Assistance-helper does MORE THAN HALF the effort. [place] lifts or holds trunk or limbs and provides more than half the effort. 6-Rexuusmvm-ssnrjq does ALL the effort. Patient does none of the effort to complete the activity. Or, the assistance of 2 or more helpers is required for the patient to complete the activity. If activity was not attempted, code reason: 7-Patient Refused. 9-Not Applicable-not attempted and the patient did not perform the activity before the current illness, exacerbation or injury. 10-Not Attempted due to Environmental Limitations-(lack of equipment, weather restraints, etc.). 88-Not Attempted due to Medical Conditions or Safety Concerns. Sit to Stand (QC): 2 Toilet Transfer (QC): 2 Weight Bearing Full Weight Bearing Full Weight Bearing Wheelchair Training Does the Pt Use a Wheelchair?: Yes Wheel 50 ft with 2 turns (QC): 4 Wheel 150 ft (QC): 4 Type of Wheelchair: Manual Exercises Seated Therapy Exercises: Ankle pumps, Long arc quads, Hip flexion, Hip abd/add, Glut set Seated Reps: 10 (2 sets of 10 reps) Treatments Co-Treat with PT ([id number]) 2 clinicians required for safety and instruction. PT focusing on LE strength, transfers, and walking while OT focusing on ADLs, UE strength, and endurance. Pt. participated in w/c mobility to therapy gym, see PT note for progress. Pt. required rest break once to therapy gym. OT departs and PT continues to work w/pt on Seated Ex. Pt propels [facility] back to room. Pt resting in [facility] awaiting lunch and Xray, all needs met & call light in hand. Assessment Current Status: Fair Progress Pt reports fatigue and SOA with tx today. PT Short Term Goals Short Term Goals Time Frame: Jan 30, 2021 Roll Left & Right: 6 Sit to lyin Lying to sitting on side of be: 3 Sit to stand: 3 Chair/kuc-fz-eogrn transfer: 4 PT Correction Goals Supplier Manager Goals PT Correction Goals Time Frame: Feb 13, 2021 Roll Left & Right (QC): 6 Sit to Lying (QC): 5 Lying-Sitting on Side/Bed(QC): 5 Sit to Stand (QC): 4 Chair/Nmg-vm-Ausgt Xfer(QC): 4 Toilet Transfer (QC): 4 Car Transfer (QC): 4 Does the Patient Walk: Yes Walk 10 feet (QC): 4 Walk 50ft with 2 Turns (QC): 4 Walk 150 ft (QC): 4 Walking 10ft on Uneven Surface: 4 1 Step (curb) (QC): 4 4 Steps (QC): 4 12 Steps (QC): 88 Picking up an Object (QC): 4 Wheel 50 feet with 2 turns (QC: 9 Wheel 150 feet: 9 PT Plan Problem List Problem List: Activity Tolerance, Functional Strength, Gait, Transfer Treatment/Plan Treatment Plan: Continue Plan of Care Treatment Plan: Bed Mobility, Education, Functional Activity Altaf, Functional Strength, Group Therapy, Gait, Safety, Therapeutic Exercise, Transfers Treatment Duration: Feb 13, 2021 Frequency: At least 5 of 7 days/Wk (IRF) Estimated Hrs Per Day: 1.5 hours per day Patient and/or Family Agrees t: Yes Time/GCodes Time In: 1100 Time Out: 1200 Total Billed Treatment Time: 60 Total Billed Treatment Co-treat w/OT for 30m ([id number]) 1, EX x2 (30m) & [facility] x2 (30m) KEVIN VILLAGOMEZ LOGISTICS ENGINEERING MANAGER Jan 27, 2021 12:15
[2021-01-27] MEDS ORDERED: FUROSEMIDE 40 MG/4 ML INJ (LASIX) ONE (12:55)
[2021-01-27] MEDS: NS W/KCL 20 MEQ/L 1,000 ML IV SCH (13:15)
--- NOTE | 2021-01-27 15:39 | Therapy Group Daily Note ---
Therapy Daily Group Note Patient Education Topic Other List Below (Memory & Memory Strategies) Exercises LE Seated Exercise, UE Exercise Session Ratio (pt:therapist): 4:1 Goal of Session: Education on ARU Expectations, Memory Strategies, UE/LE Strengthing Goal Met for this Session: Yes Pt Benefit of Group: Contributions to Others, F/U Use of Strategies @Home, Increased Functional Safety, Increased Functional Strength, Improved Cognition, Recognition of Peers, Socialization Other/Notes Pt propels [facility] to PT/OT Group. Group consists of Introduction (Name, Where you are from & Favorite Holiday/Memory), Socialization, ARU Expectations, UE & LE Seated Exercises as well as Memory Strategies and Memory Activity. Pt introduced self appropriately and actively listened to peers. Pt actively participated in Group by completing exercises and giving individual example of Memory Strategies used as well as matching 2/2 pictures during Memory Activity. Pt returned to room to rest Supine in bed at end of treatment. All needs met, call light next to pt. Start Time: 13:30 Stop Time: 14:50 Total Billed Treatment Time: 80 Total Billed Treatment 1, GRP (80m) KEVIN VILLAGOMEZ DIRECTOR PHARMACOVIGILANCE Jan 27, 2021 15:39
--- NOTE | 2021-01-27 15:45 | Diagnostic Imaging Report ---
INDICATION: Hypoxia. Comparison is made with prior chest from 01/22/2021. Heart size stable. There are zones of linear atelectasis in both lung bases. Mid and upper lung feldman appear clear. There is no effusion identified. No pneumothorax is seen. IMPRESSION: Bibasilar subsegmental atelectasis. Dictated by: Dictated on workstation # [id number]
--- NOTE | 2021-01-27 15:52 | Progress Note ---
Subjective Subjective Date Seen by Provider: Jan 27, 2021 Time Seen by Provider: 08:45 PT APPEARS MORE WEAK AND LETHARGIC TODAY COMPARED TO YESTERDAY. 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 Review of Systems General: Fatigue, Malaise HEENT: No Head Aches, No Dysphasia, No Sore Throat Pulmonary: No Dyspnea, No Cough Cardiovascular: No: Chest Pain, Palpitations Gastrointestinal: No: Nausea, Vomiting, Abdominal Pain Genitourinary: No Dysuria; Frequency Musculoskeletal: back pain Neurological: Weakness All Other Systems Reviewed All Other Systems Reviewed: Yes Objective Exam Vital Signs Vital Signs Date Time Temp Pulse Resp B/P (MAP) Pulse Ox O2 Delivery O2 Flow Rate FiO2 01/27/21 08:58 Room Air 01/27/21 08:00 36.8 105 18 131/74 (93) 92 Nasal Cannula 2.00 01/27/21 08:00 92 Nasal Cannula 2.00 01/26/21 21:10 Room Air 01/26/21 20:00 36.1 102 20 128/68 (88) 94 Room Air I & O 01/27/21 07:00 Intake Total 100 ml Balance 100 ml General Appearance: WD/WN, Chronically ill, Obese, Other (Very debilitated) Eyes: Bilateral Eye Normal Inspection, Bilateral Eye PERRL, Bilateral Eye EOMI HEENT: PERRL/EOMI, Normal ENT Inspection, Pharynx Normal Neck: Full Range of Motion, Normal Inspection, Non Tender, Supple Respiratory: Chest Non Tender, Lungs Clear, Normal Breath Sounds, No Accessory Muscle Use, No Respiratory Distress Cardiovascular: Regular Rate, Rhythm, No Edema, No Gallop, No JVD, No Murmur, Normal Peripheral Pulses Gastrointestinal: Normal Bowel Sounds, No Organomegaly, No Pulsatile Mass, Soft, Tenderness (UPPER ABDOMEN) Rectal: Deferred Extremity: Normal Capillary Refill, Normal Inspection, Normal Range of Motion, Non Tender, No Calf Tenderness, No Pedal Edema Neurologic/Psychiatric: Alert, Oriented x3, No 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, manager sourcing II- XII Norm as Tested, Depressed Affect, Motor Weakness (Generalized 3/5 all extremities) Skin: Normal Color, Warm/Dry Lymphatic: No Adenopathy Results Lab Laboratory Tests 01/27/21 09:55: White Blood Count 10.7, Red Blood Count 3.57L, Hemoglobin 9.9L, Hematocrit 32L, Mean Corpuscular Volume 91, Mean Corpuscular Hemoglobin 28, Mean Corpuscular Hemoglobin Concent 31L, Red Cell Distribution Width 17.0H, Platelet Count 306, Mean Platelet Volume 11.3, Sodium Level 140, Potassium Level 3.7, Chloride Level 100, Carbon Dioxide Level 30, Anion Gap 10, Blood Urea Nitrogen 17, Creatinine 0.55L, Estimat Glomerular Filtration Rate 112, BUN/Creatinine Ratio 31, Glucose Level 132H, Calcium Level 9.5, Corrected Calcium 10.0, Total Bilirubin 1.3H, Aspartate Amino Transf (AST/SGOT) 46H, Alanine Aminotransferase (ALT/SGPT) 22, Alkaline Phosphatase 402H, Total Protein 6.2L, Albumin 3.4 Assessment/Plan Assessment/Plan Admission Dx ACUTE INJURY HEPATITIS ELEVATED ALKALINE PHOSPHATASE LEUKOCYTOSIS URINARY TRACT INFECTION, SEPSIS HYPERBILIRUBINEMIA WEIGHT LOSS MALAISE ANOREXIA NAUSEA EMESIS WEAKNESS AND FALLING EPISODES DIET CONTROLLED DIABETES MELLITUS ANEMIA IRON DEFICIENCY HYPOKALEMIA Assessment and Plan ACUTE INJURY HEPATITIS ELEVATED ALKALINE PHOSPHATASE LEUKOCYTOSIS URINARY TRACT INFECTION, SEPSIS HYPERBILIRUBINEMIA WEIGHT LOSS [place] ANOREXIA NAUSEA EMESIS WEAKNESS AND FALLING EPISODES DIET CONTROLLED DIABETES MELLITUS ANEMIA IRON DEFICIENCY HYPOKALEMIA VITAMIN D DEFICIENCY FALL IN BATHROOM WITH FACIAL PAIN AND LEFT ELBOW PAIN ACUTE INJURY HEPATITIS WITH PERSISTENTLY ELEVATED ALKALINE PHOSPHATASE, LEUKOCYTOSIS AND HYPERBILIRUBINEMIA - DISCUSSED CASE WITH DR. ANDRADE - CASE DISCUSSED WITH DR. SANTIAGO - HE IS WONDERING ABOUT [place] -- HE REQUESTED IMAGING TO BE CLOUDED SO HE COULD REVIEW HER CASE, MAKE RECOMMENDATIONS AND HE HAS INDICATED HE WILL CALL NEXT WEEK WHEN BRIANA IS ON INPT REHAB FOR HER TO BE SEEN IN HIS OFFICE. HE DID NOT MAKE ANY FURTHER RECOMMENDATIONS UNTIL HE HAS REVIEWED HER PERTINENT IMAGING STUDIES. - APPRECIATE HIS INPUT - PLANNING ON PATIENT TO BE SEEN IN HIS OFFICE [facility] THIS WEEK. TALKED TO DR. SANTIAGO - ATTEMPTED TO GET PT TO HIS OFFICE, SHE IS TOO WEAK TO GO BY [facility], WILL HAVE TO BE SENT VIA AMBULANCE, AT THIS POINT, SHE NEEDS TO GO TO [facility] OR - CALL PLACED TO [facility], CANNOT ACCEPT HER, CALLED TO [facility] - THEY ARE PENDING DECISION AT THE TIME OF THIS BARREL FILLER FINISHING THE NOTE ON BRIANA AT 1550 ON 01/27/2021. CALL PLACED TO [facility] - NO OPEN BEDS AVAILABLE THERE. WEIGHT LOSS DUE TO ANOREXIA AND NAUSEA/EMESIS - - DIETARY CONSULT - STARTED REGLAN AT 5MG IV TID - ADDED SCOPOLAMINE PATCH - IMPROVED NAUSEA - PRN ZOFRAN UTI WITH ENTEROCOCCUS, SEPSIS WITH ECOLI - YEAST ON UA STOPPED DIFLUCAN TODAY - PT HAS FINISHED DOXYCYCLINE - PT ON MEROPENEM - LAST DOSE DUE ON 01/28/2021 [place], WEAKNESS AND FALLING EPISODES - CONTINUE INTENSIVE PHYSICAL AND OCCUPATIONAL THERAPY DIET CONTROLLED DIABETES MELLITUS -DIET CONTROLLED, MONITOR FSBS ANEMIA - REPEAT LABS TODAY - IMPROVED AT THIS TIME - S/P BLOOD TRANSFUSION 01/23/21 - 1 UNIT OF BLOOD - PT RECEIVED IV IRON 01/24/2021 HYPOKALEMIA - REPLENISHED WITH IV POTASSIUM SINCE THE ORAL POTASSIUM HAS CAUSED SIGNIFICANT GI UPSET ABDOMINAL PAIN AND BACK PAIN - STOPPED HYDROCODONE THAT MAY BE CONTRIBUTING TO HER CYCLICAL VOMITING - USE TORADOL FOR PAIN, SPARINGLY USE FENTANYL VITAMIN D DEFICIENCY - VITAMIN D2 TO BE GIVEN WHEN PHARMACY GETS DOSE IN HOSPITAL AND THEN SHE IS TO GET THIS WEEKLY, AND LOW DOSE VITAMIN D3 DAILY FALL IN BATHROOM WITH FACIAL PAIN AND LEFT ELBOW PAIN - XRAY NEGATIVE OF FACE AND ELBOW DVT PROPHYLAXIS WITH SCD'S AND AMBULATION - STOPPED LOVENOX DUE TO BLOOD LOSS RELATED ANEMIA GI PROPHYLAXIS WITH PROBIOTICS AND PROTONIX. Admission Dx ACUTE INJURY HEPATITIS ELEVATED ALKALINE PHOSPHATASE LEUKOCYTOSIS URINARY TRACT INFECTION, SEPSIS HYPERBILIRUBINEMIA WEIGHT LOSS MAL[place]ISE ANOREXIA NAUSEA EMESIS WEAKNESS AND FALLING EPISODES DIET CONTROLLED DIABETES MELLITUS ANEMIA IRON DEFICIENCY HYPOKALEMIA Clinical Quality Measures Admission Status Admission Dx ACUTE INJURY HEPATITIS ELEVATED ALKALINE PHOSPHATASE LEUKOCYTOSIS URINARY TRACT INFECTION, SEPSIS HYPERBILIRUBINEMIA WEIGHT LOSS [place] ANOREXIA NAUSEA EMESIS WEAKNESS AND FALLING EPISODES DIET CONTROLLED DIABETES MELLITUS ANEMIA IRON DEFICIENCY HYPOKALEMIA DOREEN LI MD Jan 27, 2021 15:52
[2021-01-27 16:25] VITALS: BP 129/79
--- NOTE | 2021-01-27 17:36 | CONSULTATION REPORT ---
DATE OF SERVICE: ATTENDING PRIMARY CARE PHYSICIAN: Divya Garcia MD ADMITTING PHYSICIAN: Dr. Singh. HISTORY OF PRESENT ILLNESS: The patient is a 60-year-old female well known to us. She was initially seen for right upper abdominal quadrant pain for 5 days and this progressed to nausea and vomiting as well as diarrhea. An ultrasound was performed, which did show gallbladder wall thickening as well as pericholecystic fluid consistent with acute cholecystitis. She was admitted, placed on IV antibiotics and on the following day, underwent a laparoscopic cholecystectomy, was found to have a severely inflamed gallbladder as well as multiple gallstones. The patient did well after surgery, she did have a drain placed and this was eventually removed 1 week later. Approximately two months later, she presented with feelings of nausea and just feeling unwell. She had laboratory work done, which did show elevation of her liver function enzymes and this continued to elevate. She was referred to gastroenterology where an ERCP was performed, which did show multiple retained gallstones in the common bile duct and underwent a papillotomy and stent placement in both the common bile duct as well as pancreatic duct. She was readmitted on 12/30/2020 for weakness and persistent nausea and vomiting as well as constipation at that time. She was treated conservatively with IV fluids, stool softeners and laxatives. She again felt very weak and unwell and was again found to have a leukocytosis at 17,000 as well as continued elevation of alkaline phosphatase. A CT scan was performed, which did not show any changes from previous diagnostic imaging. She was found to have E. coli in her blood and she was admitted and placed on IV antibiotics. We felt on the last admission that her continued elevation of liver function enzymes may be secondary to bile flow patterns with her previous history of acute cholecystitis as well as choledocholithiasis and having two stents placed. It was recommended at some point, she will be reevaluated by gastroenterology for reevaluation of her common bile duct, possibly with a repeat ERCP. She is also extremely weak and has had a poor appetite and will require inpatient rehabilitation as well. PAST MEDICAL HISTORY: Right breast cancer, hypertension, history of acute cholecystitis and choledocholithiasis. PAST SURGICAL HISTORY: Right breast lumpectomy with radiation, orthopedic procedure, laparoscopic cholecystectomy. ALLERGIES: VALACYCLOVIR. MEDICATIONS: Atenolol 25 mg daily, hydrochlorothiazide 25 mg daily. SOCIAL HISTORY: Negative smoke, negative alcohol. FAMILY HISTORY: Noncontributory. VITAL SIGNS: Temperature 36.8, blood pressure 131/74, pulse 105, respirations 18, pulse ox 90% on 2 liters nasal cannula. REVIEW OF SYSTEMS: Well-nourished female, currently in no acute distress. She is not experiencing any shortness of breath or difficulty breathing. No chest pain, palpitations, diaphoresis. Anorexia, however, has intermittent episodes of this and is able to tolerate a diet. However, feels early satiety. No nausea, vomiting. She is having loose stools. No red blood per rectum, no dark tarry stools. No fever, chills, with approximately 25-pound weight loss since the original surgery. PHYSICAL EXAMINATION: CHEST: Decreased breath sounds in bilateral bases. HEART: Regular, no murmurs. EXTREMITIES: +1/3 bilateral lower extremity edema. HEENT: No scleral icterus. NECK: No cervical lymphadenopathy. ABDOMEN: Soft, nondistended. There is pain on the right side of the abdomen, no peritoneal signs. No hernias. SKIN: Warm, dry. LABORATORY DATA: WBC 10.7, hemoglobin 9.9, hematocrit 32, platelets 306. BUN 17, creatinine 0.55. Total bilirubin 1.3, AST 46, alkaline phosphatase 402. ASSESSMENT AND PLAN: A 60-year-old female with intermittent leukocytosis as well as elevation of alkaline phosphatase with intermittent episodes of anorexia and nausea with history of acute cholecystitis and choledocholithiasis, status post laparoscopic cholecystectomy and ERCP and common ductal as well as pancreatic ductal stent placement. She has significant disuse myopathy and is currently in acute inpatient rehabilitation, which she will require. At some point, we feel that she needs referral back to gastroenterology for possible repeat ERCP to evaluate her ductal anatomy for potential transient flow pattern disruptions or obstruction. Job ID: [id number] DocumentID: [id number] Dictated Date: 01/27/2021 15:05:19 Larder Cook Date: 01/27/2021 17:35:26 Dictated By: SILVIA ANDRADE MD
[2021-01-27 20:00] VITALS: BP 162/75
[2021-01-27] MEDS: MELATONIN 3 MG TABLET PO PRN (21:27)
[2021-01-27] MEDS: ALPRAZolam 0.25 MG (XANAX) TAB PO PRN (21:33)
[2021-01-28] MEDS: fentaNYL INJ 100 MCG/2 ML AMP IVP PRN ×5 (00:12→13:05)
[2021-01-28] MEDS ORDERED: ENOXAPARIN 100 MG/1 ML (LOVENOX) SYR SC ONE (00:45)
[2021-01-28] MEDS: MEROPENEM 1,000 MG in WATER (STERILE) FOR INJECTION 20 ML IV SCH (04:46)
[2021-01-28] MEDS: METOCLOPRAMIDE INJ 10 MG/2 ML (REGLAN) IVP SCH (06:16)
[2021-01-28] MEDS: VITAMIN D3 10 MCG (400 UNITS) TABLET PO SCH (06:16)
[2021-01-28] MEDS: ONDANSETRON 4 MG/2 ML (SDV) Z0FRAN IVP PRN ×2 (07:28→13:00)
[2021-01-28] MEDS: ALPRAZolam 0.25 MG (XANAX) TAB PO PRN (07:29)
[2021-01-28 07:55] VITALS: BP 126/60
--- NOTE | 2021-01-28 08:40 | Discharge Summary ---
Diagnosis/Chief Complaint Date of Admission Jan 23, 2021 at 10:50 Date of Discharge Discharge Date: Jan 28, 2021 Discharge Diagnosis Assessment: Acute myopathy ACUTE INJURY HEPATITIS ELEVATED ALKALINE PHOSPHATASE LEUKOCYTOSIS URINARY TRACT INFECTION, SEPSIS HYPERBILIRUBINEMIA WEIGHT LOSS MALAISE ANOREXIA NAUSEA EMESIS WEAKNESS AND FALLING EPISODES DIET CONTROLLED DIABETES MELLITUS ANEMIA IRON DEFICIENCY HYPOKALEMIA Plan: Aggressive physical therapy Pain control Monitor weight loss 01/24/2021: Fall risk Monitor closely 01/25/2021: Check labs in the morning including liver function test along with ammonia and GGT Supportive care 01/26/2021: Supportive care Monitor liver enzymes 01/27/2021: Liver failure dysfunction may need higher level of care Discharge Summary Discharge Physical Examination Allergies: Coded Allergies: valacyclovir HCl (Verified Allergy, Unknown, 01/14/21) Vitals & I&Os Vital Signs Date Time Temp Pulse Resp B/P (MAP) Pulse Ox O2 Delivery O2 Flow Rate FiO2 01/28/21 13:30 35.8 91 24 126/60 97 Room Air 2.00 General Appearance: Alert, Oriented X3, Cooperative, Other (Frightened and ill) Respiratory: Clear to Auscultation Cardiovascular: Regular Rate Psych/Mental Status: Mental Status NL Hospital Course Was the Problem List Reviewed?: Yes Hospital Course: Pt had a short hospital course for 6 days in inpatient rehab but she required going to [facility] higher level of care due to continued decline. Her d-dimer was elevated, Lovenox was given, CT angiogram ordered but not completed due to transfer of care. Overall she made minimal prog ress, likely she has liver dysfunction due to severe tirado elevated alk phosphatase with GGT and overall she was in need of hepatology services. Overall prognosis poor. Labs (last 24 hrs) Laboratory Tests 01/24/21 05:45: White Blood Count 9.4, Red Blood Count 3.51L, Hemoglobin 9.9L, Hematocrit 31L, M renetta Corpuscular Volume 89, Mean Corpuscular Hemoglobin 28, Mean Corpuscular Hemoglobin Concent 32, Red Cell Distribution Width 18.2H, Platelet Count 248, Mean Platelet Volume 11.4, Immature Granulocyte % (Auto) 1, Neutrophils (%) (Auto) 84H, Lymphocytes (%) (Auto) 7L, Monocytes (%) (Auto) 8, Eosinophils (%) (Auto) 0, Basophils (%) (Auto) 0, Neutrophils # (Auto) 7.8, Lymphocytes # (Auto) 0.7L, Monocytes # (Auto) 0.7, Eosinophils # (Auto) 0.0, Basophils # (Auto) 0.0, Immature Granulocyte # (Auto) 0.1, Sodium Level 136, Potassium Level 3.9, Chloride Level 99, Carbon Dioxide Level 26, Anion Gap 11, Blood Urea Nitrogen 13, Creatinine 0.53L, Estimat Glomerular Filtration Rate 117, BUN/Creatinine Ratio 25, Glucose Level 111H, Calcium Level 8.8, Corrected Calcium 9.6, Total Bilirubin 1.5H, Aspartate Amino Transf (AST/SGOT) 71H, Alanine Aminotransferase (ALT/SGPT) 22, Alkaline Phosphatase 495H, Total Protein 6.1L, Albumin 3.0L 01/25/21 06:00: White Blood Count 9.6, Red Blood Count 3.59L, Hemoglobin 10.1L, Hematocrit 32L, Mean Corpuscular Volume 89, Mean Corpuscular Hemoglobin 28, Mean Corpuscular Hemoglobin Concent 32, Red Cell Distribution Width 17.6H, Platelet Count 290, Mean Platelet Volume 11.4, Sodium Level 138, Potassium Level 3.7, Chloride Level 99, Carbon Dioxide Level 27, Anion Gap 12, Blood Urea Nitrogen 11, Creatinine 0.59L, Estimat Glomerular Filtration Rate 103, BUN/Creatinine Ratio 19, Glucose Level 113H, Calcium Level 9.1, Corrected Calcium 9.7, Total Bilirubin 0.9, Aspartate Amino Transf (AST/SGOT) 31, Alanine Aminotransferase (ALT/SGPT) 15, Alkaline Phosphatase 358H, Total Protein 6.2L, Albumin 3.3, Phosphorus Level 2.5, Magnesium Level 1.7 01/26/21 05:00: White Blood Count 10.5, Red Blood Count 3.46L, Hemoglobin 9.7L, Hematocrit 31L, Mean Corpuscular Volume 89, Mean Corpuscular Hemoglobin 28, Mean Corpuscular Hemoglobin Concent 31L, Red Cell Distribution Width 17.2H, Platelet Count 263, Mean Platelet Volume 11.4, Immature Granulocyte % (Auto) 1, Neutrophils (%) (Auto) 85H, Lymphocytes (%) (Auto) 8L, Monocytes (%) (Auto) 6, Eosinophils (%) (Auto) 1, Basophils (%) (Auto) 0, Neutrophils # (Auto) 8.9H, Lymphocytes # (Auto) 0.8L, Monocytes # (Auto) 0.6, Eosinophils # (Auto) 0.1, Basophils # (Auto) 0.0, Immature Granulocyte # (Auto) 0.1, Sodium Level 137, Potassium Level 3.7, Chloride Level 98, Carbon Dioxide Level 29, Anion Gap 10, Blood Urea Nitrogen 11, Creatinine 0.55L, Estimat Glomerular Filtration Rate 112, BUN/Creatinine Ratio 20, Glucose Level 123H, Calcium Level 9.2, Corrected Calcium 9.6, Total Bilirubin 1.7H, Aspartate Amino Transf (AST/SGOT) 88H, Alanine Aminotransferase (ALT/SGPT) 29, Alkaline Phosphatase 509H, Total Protein 6.1L, Albumin 3.5, Prothrombin Time 16.4H, INR Comment 1.3, Gamma Glutamyl Transpeptidase 521H, Ammonia 23 01/27/21 09:55: White Blood Count 10.7, Red Blood Count 3.57L, Hemoglobin 9.9L, Hematocrit 32L, Mean Corpuscular Volume 91, Mean Corpuscular Hemoglobin 28, Mean Corpuscular Hemoglobin Concent 31L, Red Cell Distribution Width 17.0H, Platelet Count 306, Mean Platelet Volume 11.3, Sodium Level 140, Potassium Level 3.7, Chloride Level 100, Carbon Dioxide Level 30, Anion Gap 10, Blood Urea Nitrogen 17, Creatinine 0.55L, Estimat Glomerular Filtration Rate 112, BUN/Creatinine Ratio 31, Glucose Level 132H, Calcium Level 9.5, Corrected Calcium 10.0, Total Bilirubin 1.3H, Aspartate Amino Transf (AST/SGOT) 46H, Alanine Aminotransferase (ALT/SGPT) 22, Alkaline Phosphatase 402H, Total Protein 6.2L, Albumin 3.4 01/27/21 17:10: D-Dimer 6.15H 01/28/21 11:23: Sodium Level 139, Potassium Level 3.9, Chloride Level 99, Carbon Dioxide Level 32, Anion Gap 8, Blood Urea Nitrogen 18, Creatinine 0.50L, Estimat Glomerular Filtration Rate 125, BUN/Creatinine Ratio 36, Glucose Level 114H, Calcium Level 9.5, Corrected Calcium 10.3H, Total Bilirubin 2.2H, Aspartate Amino Transf (AST/SGOT) 104H, Alanine Aminotransferase (ALT/SGPT) 34, Alkaline Phosphatase 583H, Total Protein 6.1L, Albumin 3.0L Pending Labs Laboratory Tests 01/24/21 05:45: White Blood Count 9.4, Red Blood Count 3.51, Hemoglobin 9.9, Hematocrit 31, Mean Corpuscular Volume 89, Mean Corpuscular Hemoglobin 28, Mean Corpuscular Hemoglobin Concent 32, Red Cell Distribution Width 18.2, Platelet Count 248, Mean Platelet Volume 11.4, Immature Granulocyte % (Auto) 1, Neutrophils (%) (Auto) 84, Lymphocytes (%) (Auto) 7, Monocytes (%) (Auto) 8, Eosinophils (%) (Auto) 0, Basophils (%) (Auto) 0, Neutrophils # (Auto) 7.8, Lymphocytes # (Auto) 0.7, Monocytes # (Auto) 0.7, Eosinophils # (Auto) 0.0, Basophils # (Auto) 0.0, Immature Granulocyte # (Auto) 0.1, Sodium Level 136, Potassium Level 3.9, Chloride Level 99, Carbon Dioxide Level 26, Anion Gap 11, Blood Urea Nitrogen 13, Creatinine 0.53, Estimat Glomerular Filtration Rate 117, BUN/Creatinine Ratio 25, Glucose Level 111, Calcium Level 8.8, Corrected Calcium 9.6, Total Bilirubin 1.5, Aspartate Amino Transf (AST/SGOT) 71, Alanine Aminotransferase (ALT/SGPT) 22, Alkaline Phosphatase 495, Total Protein 6.1, Albumin 3.0 01/25/21 06:00: White Blood Count 9.6, Red Blood Count 3.59, Hemoglobin 10.1, Hematocrit 32, Mean Corpuscular Volume 89, Mean Corpuscular Hemoglobin 28, Mean Corpuscular Hemoglobin Concent 32, Red Cell Distribution Width 17.6, Platelet Count 290, Mean Platelet Volume 11.4, Sodium Level 138, Potassium Level 3.7, Chloride Level 99, Carbon Dioxide Level 27, Anion Gap 12, Blood Urea Nitrogen 11, Creatinine 0.59, Estimat Glomerular Filtration Rate 103, BUN/Creatinine Ratio 19, Glucose Level 113, Calcium Level 9.1, Corrected Calcium 9.7, Total Bilirubin 0.9, Aspartate Amino Transf (AST/SGOT) 31, Alanine Aminotransferase (ALT/SGPT) 15, Alkaline Phosphatase 358, Total Protein 6.2, Albumin 3.3, Phosphorus Level 2.5, Magnesium Level 1.7 01/26/21 05:00: White Blood Count 10.5, Red Blood Count 3.46, Hemoglobin 9.7, Hematocrit 31, Mean Corpuscular Volume 89, Mean Corpuscular Hemoglobin 28, Mean Corpuscular Hemoglobin Concent 31, Red Cell Distribution Width 17.2, Platelet Count 263, Mean Platelet Volume 11.4, Immature Granulocyte % (Auto) 1, Neutrophils (%) (Auto) 85, Lymphocytes (%) (Auto) 8, Monocytes (%) (Auto) 6, Eosinophils (%) (Auto) 1, Basophils (%) (Auto) 0, Neutrophils # (Auto) 8.9, Lymphocytes # (Auto) 0.8, Monocytes # (Auto) 0.6, Eosinophils # (Auto) 0.1, Basophils # (Auto) 0.0, Immature Granulocyte # (Auto) 0.1, Sodium Level 137, Potassium Level 3.7, Chloride Level 98, Carbon Dioxide Level 29, Anion Gap 10, Blood Urea Nitrogen 11, Creatinine 0.55, Estimat Glomerular Filtration Rate 112, BUN/Creatinine Ratio 20, Glucose Level 123, Calcium Level 9.2, Corrected Calcium 9.6, Total Bilirubin 1.7, Aspartate Amino Transf (AST/SGOT) 88, Alanine Aminotransferase (ALT/SGPT) 29, Alkaline Phosphatase 509, Total Protein 6.1, Albumin 3.5, Prothrombin Time 16.4, INR Comment 1.3, Gamma Glutamyl Transpeptidase 521, Ammonia 23 01/27/21 09:55: White Blood Count 10.7, Red Blood Count 3.57, Hemoglobin 9.9, Hematocrit 32, Mean Corpuscular Volume 91, Mean Corpuscular Hemoglobin 28, Mean Corpuscular Hemoglobin Concent 31, Red Cell Distribution Width 17.0, Platelet Count 306, Mean Platelet Volume 11.3, Sodium Level 140, Potassium Level 3.7, Chloride Level 100, Carbon Dioxide Level 30, Anion Gap 10, Blood Urea Nitrogen 17, Creatinine 0.55, Estimat Glomerular Filtration Rate 112, BUN/Creatinine Ratio 31, Glucose Level 132, Calcium Level 9.5, Corrected Calcium 10.0, Total Bilirubin 1.3, Aspartate Amino Transf (AST/SGOT) 46, Alanine Aminotransferase (ALT/SGPT) 22, Alkaline Phosphatase 402, Total Protein 6.2, Albumin 3.4 01/27/21 17:10: D-Dimer 6.15 01/28/21 11:23: Sodium Level 139, Potassium Level 3.9, Chloride Level 99, Carbon Dioxide Level 32, Anion Gap 8, Blood Urea Nitrogen 18, Creatinine 0.50, Estimat Glomerular Filtration Rate 125, BUN/Creatinine Ratio 36, Glucose Level 114, Calcium Level 9.5, Corrected Calcium 10.3, Total Bilirubin 2.2, Aspartate Amino Transf (AST/SGOT) 104, Alanine Aminotransferase (ALT/SGPT) 34, Alkaline Phosphatase 583, Total Protein 6.1, Albumin 3.0 Discharge Home Medications: Active Scripts Active Reported Lactobacillus Tablet (L. Acidophilus/L.bulgaricus) 1 Each Tablet 2 Ea PO TIDWM Sucralfate 1 Gm Tablet 1 Gm PO QID DISSOLVE INTO A SLURRY WITH 10ML OF WATER PRIOR TO TAKING THE MED Hydrocodone-Acetamin 7.5-325 (Hydrocodone/Acetaminophen) 1 Each Tablet 1 Each PO QID PRN Sm Stool Softener-Laxative Tab (Sennosides/Docusate Sodium) 1 Each Tablet 1 Ea PO BID Ondansetron Odt (Ondansetron) 4 Mg Tab.rapdis 4 Mg PO Q8H PRN Miralax (Polyethylene Glycol 3350) 17 Gm Powd.pack 17 Gm PO BID Pantoprazole Sodium 40 Mg Tablet.dr 40 Mg PO HS Instructions to patient/family Please see electronic discharge instructions given to patient. Diagnosis/Problems Diagnosis/Problems (1) RUSSEL Arriola DO Jan 28, 2021 08:40
[2021-01-28] MEDS: NS W/KCL 20 MEQ/L 1,000 ML IV SCH (09:20)
--- NOTE | 2021-01-28 09:59 | Progress Note ---
Subjective Subjective Date Seen by Provider: Jan 28, 2021 Time Seen by Provider: 08:50 No overnight events still requiring oxygen 2L. Xray showing atelectasis. Patient is getting weaker. Sister at bedside. Review of Systems General: Fatigue, Malaise HEENT: No Head Aches, No Dysphasia, No Sore Throat Pulmonary: Dyspnea Cardiovascular: No: Chest Pain, Palpitations Gastrointestinal: No: Nausea, Vomiting, Abdominal Pain Genitourinary: No Dysuria; Frequency Musculoskeletal: back pain Neurological: Weakness All Other Systems Reviewed All Other Systems Reviewed: Yes Objective Exam Vital Signs Vital Signs Date Time Temp Pulse Resp B/P (MAP) Pulse Ox O2 Delivery O2 Flow Rate FiO2 01/28/21 07:55 35.8 91 24 126/60 (82) 97 Nasal Cannula 2.00 01/28/21 06:50 96 Room Air 2.00 01/28/21 05:29 35.7 01/28/21 04:46 35.7 01/28/21 03:09 35.7 01/28/21 02:35 35.7 01/28/21 00:45 35.7 01/28/21 00:12 35.7 01/27/21 22:06 35.7 01/27/21 21:36 35.7 01/27/21 21:00 Room Air 01/27/21 20:00 35.7 87 18 162/75 (104) 98 Nasal Cannula 2.00 01/27/21 16:25 36.8 96 20 129/79 (96) 97 Nasal Cannula 2.00 General Appearance: No Apparent Distress, WD/WN, Chronically ill, Obese, Other (Very debilitated) Eyes: Bilateral Eye Normal Inspection, Bilateral Eye PERRL, Bilateral Eye EOMI HEENT: PERRL/EOMI, Normal ENT Inspection, Pharynx Normal Neck: Full Range of Motion, Normal Inspection, Non Tender, Supple, Carotid Bruit Respiratory: Chest Non Tender, Lungs Clear, Normal Breath Sounds, No Accessory Muscle Use, No Respiratory Distress Cardiovascular: Regular Rate, Rhythm, No Gallop, Systolic Murmur Gastrointestinal: Normal Bowel Sounds, No Organomegaly, No Pulsatile Mass, Non Tender, Soft Rectal: Deferred Back: Normal Inspection, No CVA Tenderness, No Vertebral Tenderness Extremity: Normal Capillary Refill, Normal Range of Motion, No Calf Tenderness, Pedal Edema Neurologic/Psychiatric: Alert, Oriented x3, No 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, oil dipper II- XII Norm as Tested, Abnormal Gait, Depressed Affect, Motor Weakness (Generalized 3/5 all extremities) Skin: Normal Color, Warm/Dry Lymphatic: No Adenopathy Results Lab Laboratory Tests 01/27/21 17:10: D-Dimer 6.15H Assessment/Plan Assessment/Plan Assessment and Plan ACUTE INJURY HEPATITIS WITH PERSISTENTLY ELEVATED ALKALINE PHOSPHATASE, LEUKOCYTOSIS AND HYPERBILIRUBINEMIA - DISCUSSED CASE WITH DR. ANDRADE - CASE DISCUSSED WITH DR. SANTIAGO - HE IS WONDERING ABOUT [facility] -- HE REQUESTED IMAGING TO BE CLOUDED SO HE COULD REVIEW HER CASE, MAKE RECOMMENDATIONS AND HE HAS INDICATED HE WILL CALL NEXT WEEK WHEN [facility]ANA IS ON INPT REHAB FOR HER TO BE SEEN IN HIS OFFICE. HE DID NOT MAKE ANY FURTHER RECOMMENDATIONS UNTIL HE HAS REVIEWED HER PERTINENT IMAGING STUDIES. - APPRECIATE HIS INPUT - PLANNING ON PATIENT TO BE SEEN IN HIS OFFICE [facility] THIS WEEK. TALKED TO DR. SANTIAGO - ATTEMPTED TO GET PT TO HIS OFFICE, SHE IS TOO WEAK TO GO BY [facility], WILL HAVE TO BE SENT VIA AMBULANCE, AT THIS POINT, SHE NEEDS TO GO TO [facility] OR - CALL PLACED TO [facility], CANNOT ACCEPT HER, CALLED TO [facility] - THEY ARE PENDING DECISION AT THE TIME OF THIS LITIGATION MANAGER FINISHING THE NOTE ON BRIANA AT 1550 ON 01/27/2021. CALL PLACED TO [facility] - NO OPEN BEDS AVAILABLE THERE. WEIGHT LOSS DUE TO ANOREXIA AND NAUSEA/EMESIS - - DIETARY CONSULT - STARTED REGLAN AT 5MG IV TID - ADDED SCOPOLAMINE PATCH - IMPROVED NAUSEA - PRN ZOFRAN UTI WITH ENTEROCOCCUS, SEPSIS WITH ECOLI - YEAST ON UA STOPPED DIFLUCAN TODAY - PT HAS FINISHED DOXYCYCLINE - PT ON MEROPENEM - LAST DOSE DUE ON 01/28/2021 MALAISE, WEAKNESS AND FALLING EPISODES - CONTINUE INTENSIVE PHYSICAL AND OCCUPATIONAL THERAPY DIET CONTROLLED DIABETES MELLITUS -DIET CONTROLLED, MONITOR FSBS ANEMIA - REPEAT LABS TODAY - IMPROVED AT THIS TIME - S/P BLOOD TRANSFUSION 01/23/21 - 1 UNIT OF BLOOD - PT RECEIVED IV IRON 01/24/2021 HYPOKALEMIA - REPLENISHED WITH IV POTASSIUM SINCE THE ORAL POTASSIUM HAS CAUSED SIGNIFICANT GI UPSET ABDOMINAL PAIN AND BACK PAIN - STOPPED HYDROCODONE THAT MAY BE CONTRIBUTING TO HER CYCLICAL VOMITING - USE TORADOL FOR PAIN, SPARINGLY USE FENTANYL VITAMIN D DEFICIENCY - VITAMIN D2 TO BE GIVEN WHEN PHARMACY GETS DOSE IN HOSPITAL AND THEN SHE IS TO GET THIS WEEKLY, AND LOW DOSE VITAMIN D3 DAILY FALL IN BATHROOM WITH FACIAL PAIN AND LEFT ELBOW PAIN - XRAY NEGATIVE OF FACE AND ELBOW DVT PROPHYLAXIS WITH SCD'S AND AMBULATION - STOPPED LOVENOX DUE TO BLOOD LOSS RELATED ANEMIA GI PROPHYLAXIS WITH PROBIOTICS AND PROTONIX. 01/28/21- spoke with [facility]- they will accept patient for transfer to get GI on board for recommendations. Accepting Physician- KEITH Kirkpatrick MD Jan 28, 2021 09:59
[2021-01-28] MEDS ORDERED: CATHETER FLUSH 10 ML SYR IV PRN (10:30)
[2021-01-28] MEDS ORDERED: NS 100 ML (IVPB) BAG IV ONE (10:30)
[2021-01-28] MEDS ORDERED: IOHEXOL 350 MG/ML 100 ML (OMNIPAQUE 350) VIAL IV ONE (10:30)
[2021-01-28] MEDS ORDERED: HOLD METFORMIN - RECEIVED CONTRAST 20 ML VIAL IV SCH (10:30)
--- NOTE | 2021-01-28 10:37 | Diagnostic Imaging Report ---
PROCEDURE: CT angiography of the chest with contrast. TECHNIQUE: Multiple contiguous axial images were obtained through the chest after uneventful bolus administration of intravenous contrast. 3D reconstructed CTA MIP acquisitions were also performed. Auto Exposure Controls were utilized during the CT exam to meet ALARA standards for radiation dose reduction. INDICATION: Elevated D-dimer and shortness of air. No prior studies are available for comparison. There are questionable filling defects involving segmental and subsegmental right upper lobe pulmonary arterial branches. No definite filling defects are seen within lower lobe or left upper lobe branches. No central emboli are identified. Aorta is normal caliber. There is no dissection. No pericardial fluid is seen. There is a moderate right and small left pleural effusion. There is some subsegmental atelectasis in both bases as well as lingula and right middle lobe. Upper abdomen does show some perihepatic ascites. There is a common bile duct stent in place with pneumobilia present within the liver. IMPRESSION: There are findings suggestive of minimal pulmonary emboli involving segmental and subsegmental branch to the right upper lobe. No other pulmonary emboli are detected. Bilateral pleural effusions, right greater with bibasilar atelectasis. Dictated by: Dictated on workstation # [id number]
--- NOTE | 2021-01-28 10:43 | Therapy Team Discharge Summary ---
Therapy Discharge Summary Discharge Recommendations Date of Discharge Occupational Therapy Pt admitted to ARU with disuse myopathy. At OF, pt was independent with ADLs and functional mobility, no AD/AE. Upon initial evaluation, pt required set up assistance, independent with eating, set up upper body dressing, total assist showering, lower body dressing, footwear and toileting. OT tx focused on increasing BUE strength and activity tolerance, and increasing independence with ADLs and functional mobility. At discharge, pt was independent with eating and oral care, min A showering, and total assist lower body dressing, toileting and footwear. Pt made some functional progress towards goals, but only attained LTGs for eating and oral care. Pt had short stay on ARU, discharging to medical/surgical floor on this date due to increased medical complexity. D/C from OT. Decreased Activ Tolerance, Decreased UE Strength, Impaired Coordination, Impaired Self-Care Skills, Restricted Funct UE ROM PT Elderly Companion Goals Senior Care Goals PT Senior Care Goals Time Frame: Feb 13, 2021 Roll Left to Right (QC): 6 Sit to Lying (QC): 5 Lying-Sitting on Side/Bed(QC): 5 Sit to Stand (QC): 4 Chair/[id number] Xfer(QC): 4 Car Transfer (QC): 4 Does the Patient Walk: Yes Walk 10 feet (QC): 4 Walk 10ft-Uneven Surface(QC): 4 Walk 50ft with 2 Turns (QC): 4 Walk 150 ft (QC): 4 Wheel 50 feet with 2 turns (QC: 9 1 Step (curb) (QC): 4 4 Steps (QC): 4 12 Steps (QC): 88 Picking up an Object (QC): 4 OT Senior Care Goals Elderly Companion Goals Time Frame: Feb 20, 2021 Eating (QC): 6 (met) Oral Hygiene (QC): 6 (met) Shower/Bathe Self (QC): 6 (not met) Upper Body Dressing (QC): 6 (not met) Lower Body Dressing (QC): 6 (not met) On/Off Footwear (QC): 6 (not met) Toileting Hygiene (QC): 6 (not met) Toilet/Commode Transfer (QC): 4 Additional Goals: 1-Demonstrate ADL Tasks, 2-Verbalize Understanding, 3- ImproveStrength/Altaf 1=Demonstrate adherence to instructed precautions during ADL tasks. 2=Patient will verbalize/demonstrate understanding of assistive devices/modifications for ADL. 3=Patient will improve strength/tolerance for activity to enable patient to perform ADL's. MELINA TREJO OT Jan 28, 2021 10:43
--- NOTE | 2021-01-28 11:23 | PM&R Progress Note ---
Subjective HPI/CC On Admission Date Seen by Provider: Jan 28, 2021 Subjective/Events-last exam 01/27/2021: Pt having some difficulty 78% on room air Noncompliant with CPAP at home Was restless up and down last night May need to transfer to higher level per PCP Patient appears to have liver dysfunction due to morbid obesity causing downward spiral 01/26/2021: Pt very frail and weak Ativan and Xanax made her very drowsy Scopolamine Patch maintained, will inquire with PCP whether to continue that Pt is at high risk for decompensation Ammonia is normal INR 1.5 Alk phos 495 01/25/2021: Patient doing really well Central line leaking is much improved Use sandbag and a pressure dressing Nausea is improved Scopolamine patch maintained Checking labs in the morning 01/24/2021: Patient had been doing pretty well until sustaining a fall in the bathroom It took a Stephen lift and 4 people to get her up Dr. Garcia ordered IV Lasix and iron infusion Vitamin D was also started Alk phos remains high at 495 Objective Exam Vital Signs Vital Signs Date Time Temp Pulse Resp B/P (MAP) Pulse Ox O2 Delivery O2 Flow Rate FiO2 01/28/21 07:55 35.8 91 24 126/60 (82) 97 Nasal Cannula 2.00 Capillary Refill : General Appearance: No Apparent Distress, WD/WN, Chronically ill, Obese, Other (Very debilitated) HEENT: PERRL/EOMI, Normal ENT Inspection, Pharynx Normal Neck: Full Range of Motion, Normal Inspection, Non Tender, Supple, Carotid Bruit Respiratory: Chest Non Tender, Lungs Clear, Normal Breath Sounds, No Accessory Muscle Use, No Respiratory Distress Cardiovascular: Regular Rate, Rhythm, No Gallop, Systolic Murmur Gastrointestinal: Normal Bowel Sounds, No Organomegaly, No Pulsatile Mass, Non Tender, Soft Rectal: Deferred Back: Normal Inspection, No CVA Tenderness, No Vertebral Tenderness Extremity: Normal Capillary Refill, Normal Range of Motion, No Calf Tenderness, Pedal Edema Neurologic/Psychiatric: Alert, Oriented x3, No 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, relocation director II- XII Norm as Tested, Abnormal Gait, Depressed Affect, Motor Weakness (Generalized 3/5 all extremities) Skin: Normal Color, Warm/Dry Lymphatic: No Adenopathy Results/Procedures Lab Patient resulted labs reviewed. FIM Transfers Therapy Code Descriptions/Definitions Functional Kemper Measure: 0=Not Assessed/NA 4=Minimal Assistance 1=Total Assistance 5=Supervision or Setup 2=Maximal Assistance 6=Modified [place] 3=Moderate Assistance 7=Complete IndependenceSCALE: Activities may be completed with or without assistive devices. 6-Yhyffaepxt-lnvuzsx completes the activity by him/herself with no assistance from a helper. 5-Set-up or Clean-up Assistance-helper sets up or cleans up; patient completes activity. Witt assists only prior to or following the activity. 4-Supervision or Touching Assistance-helper provides verbal cues and/or touching/steadying and/or contact guard assistance as patient completes activity. Assistance may be provided throughout the activity or intermittently. 3-Partial/Moderate Assistance-helper does LESS THAN HALF the effort. Witt lifts, holds or supports trunk or limbs, but provides less than half the effort. 2-Substantial/Maximal Assistance-helper does MORE THAN HALF the effort. Witt lifts or holds trunk or limbs and provides more than half the effort. 5-Dbxyyzjty-jllonw does ALL the effort. Patient does none of the effort to complete the activity. Or, the assistance of 2 or more helpers is required for the patient to complete the activity. If activity was not attempted, code reason: 7-Patient Refused. 9-Not Applicable-not attempted and the patient did not perform the activity before the current illness, exacerbation or injury. 10-Not Attempted due to Environmental Limitations-(lack of equipment, weather restraints, etc.). 88-Not Attempted due to Medical Conditions or Safety Concerns. Roll Left to Right (QC): 4 Sit to Lying (QC): 2 Sit to Stand (QC): 2 Chair/Par-ki-Vxnuf Xfer(QC): 2 Car Transfer (QC): 88 Gait Training Does the Patient Walk?: Yes Distance: 6' Walk 10 feet (QC): 4 Walk 50 ft with 2 Turns(QC): 88 Walk 150 ft (QC): 88 Walking 10ft/uneven surface-QC: 88 Gait Assistive Device: Parallel Bars Wheelchair Training Does the Pt Use a Wheelchair?: Yes Distance: 10' Wheel 50 ft with 2 turns (QC): 4 Wheel 150 ft (QC): 4 Type of Wheelchair: Manual Stair Training 1 Step (curb) (QC): 88 4 Steps (QC): 88 12 Steps (QC): 88 Balance Picking up an Object (QC): 88 ADL-Treatment Eating (QC): 6 (Per pt report, IND with breakfast.) Oral Hygiene (QC): 6 Bathing Location: L Arm, R Arm, L Upper Leg, R Upper Leg, L Lower Leg (including foot), R Lower Leg (including foot), Chest, Abdomen, Buttocks, Perineal Area Shower/Bathe Self (QC): 3 (Min A. to wash feet, lower LE, and buttocks. ) Upper Body Dressing (QC): 5 (set up with pull up hand night gown.) Lower Body Dressing (QC): 2 (Required Min A to thread feet into porper holes, Max A x2 to pull up over hips.) On/Off Footwear (QC): 1 Toileting Hygiene (QC): 1 Assessment/Plan Assessment and Plan Assess & Plan/Chief Complaint Assessment: Acute myopathy ACUTE INJURY HEPATITIS ELEVATED ALKALINE PHOSPHATASE LEUKOCYTOSIS URINARY TRACT INFECTION, SEPSIS HYPERBILIRUBINEMIA WEIGHT LOSS MALAISE ANOREXIA NAUSEA EMESIS WEAKNESS AND FALLING EPISODES DIET CONTROLLED DIABETES MELLITUS ANEMIA IRON DEFICIENCY HYPOKALEMIA Plan: Aggressive physical therapy Pain control Monitor weight loss 01/24/2021: Fall risk Monitor closely 01/25/2021: Check labs in the morning including liver function test along with ammonia and GGT Supportive care 01/26/2021: Supportive care Monitor liver enzymes 01/27/2021: Liver failure dysfunction may need higher level of care (1) Myopathy RUSSEL MAYERS DO Jan 28, 2021 11:23
[2021-01-28 11:51] LABS: POTASSIUM 3.9 MMOL/L (3.6-5.0)
[2021-01-28 11:52] LABS: CALCIUM 9.5 MG/DL (8.5-10.1)
[2021-01-28 11:53] LABS: TOTAL PROTEIN 6.1 GM/DL (6.4-8.2)
[2021-01-28 11:55] LABS: BILIRUBIN,TOTAL 2.2 MG/DL (0.1-1.0)
[2021-01-28 11:57] LABS: CREATININE SERUM 0.5 MG/DL (0.60-1.30)
[2021-01-28] MEDS: LORazepam INJ 2 MG/ML (ATIVAN) VIAL IVP PRN (13:01)
[2021-01-28 13:30] VITALS: BP 126/60
--- NOTE | 2021-01-28 14:07 | Physical Therapy Progress Note ---
Therapy Progress Note Pt d/c to outside facility so wasn't seen today due to medical complications. KEVIN VILLAGOMEZ PTA Jan 28, 2021 14:07
--- NOTE | 2021-01-28 14:40 | Therapy Team Discharge Summary ---
Therapy Discharge Summary Discharge Recommendations Date of Discharge Physical Therapy Patient came to rehab with hepatic abscess/leukocytosis/dehydration/anemia. Upon evaluation patient performed bed mobility with mod assist, supine to sit dependent, sit to supine mod assist, sit to stand mod assist, transfers CGA, ambulated 40' with a rolling walker with CGA, and propelled a manual WC 10' with SBA. Patient has been performing bed mobility and transfer training, balance and endurance training, functional strengthening, gait training, and education. Patient had to transfer from rehab due to medical reasons and overall declined in functional mobility. Patient will be discharged from PT at this time. 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 Goals PT Repair Electric Motor Assembler Goals Time Frame: Feb 13, 2021 Roll Left to Right (QC): 6 Sit to Lying (QC): 5 Lying-Sitting on Side/Bed(QC): 5 Sit to Stand (QC): 4 Chair/Dsf-lc-Llfqr Xfer(QC): 4 Car Transfer (QC): 4 Does the Patient Walk: Yes Walk 10 feet (QC): 4 Walk 10ft-Uneven Surface(QC): 4 Walk 50ft with 2 Turns (QC): 4 Walk 150 ft (QC): 4 Wheel 50 feet with 2 turns (QC: 9 1 Step (curb) (QC): 4 4 Steps (QC): 4 12 Steps (QC): 88 Picking up an Object (QC): 4 OT Repair Electric Motor Assembler Goals Repair Electric Motor Assembler Goals Time Frame: Feb 20, 2021 Eating (QC): 6 (met) Oral Hygiene (QC): 6 (met) Shower/Bathe Self (QC): 6 (not met) Upper Body Dressing (QC): 6 (not met) Lower Body Dressing (QC): 6 (not met) On/Off Footwear (QC): 6 (not met) Toileting Hygiene (QC): 6 (not met) Toilet/Commode Transfer (QC): 4 Additional Goals: 1-Demonstrate ADL Tasks, 2-Verbalize Understanding, 3- ImproveStrength/Altaf 1=Demonstrate adherence to instructed precautions during ADL tasks. 2=Patient will verbalize/demonstrate understanding of assistive devices/modifications for ADL. 3=Patient will improve strength/tolerance for activity to enable patient to perform ADL's. KRTEK,JENARO PT Jan 28, 2021 14:40
[2021-01-31] MEDS ORDERED: VITAMIN D2 1.25 MG (50,000 UNITS) CAP PO SCH (09:00)
== END 2021-01-28 13:30 | disposition short-term general hospital (02) | DRG 91 ==
PROVIDERS: ADMIT Internal Medicine; ATTEND Internal Medicine
DX: G72.9 Myopathy, unspecified (principal); A41.51 Sepsis due to Escherichia coli [E. coli]; N39.0 Urinary tract infection, site not specified; Z68.42 Body mass index [BMI] 45.0-49.9, adult; K75.81 Nonalcoholic steatohepatitis (NASH); E66.01 Morbid (severe) obesity due to excess calories; R63.0 Anorexia; R53.81 Other malaise; R53.1 Weakness; Z91.81 History of falling; E11.9 Type 2 diabetes mellitus without complications; D64.9 Anemia, unspecified; E87.6 Hypokalemia; I10 Essential (primary) hypertension; M19.91 Primary osteoarthritis, unspecified site; F41.9 Anxiety disorder, unspecified; F32.A Depression, unspecified; R11.10 Vomiting, unspecified; Z85.3 Personal history of malignant neoplasm of breast; Z88.3 Allergy status to other anti-infective agents; Z82.49 Family history of ischemic heart disease and other diseases of the circulatory system; B95.2 Enterococcus as the cause of diseases classified elsewhere
CPT/HCPCS: 36415; 70140; 71046; 71275; 73080; 80053; 82140; 82977; 83735; 84100; 85025; 85027; 85379; 85610; 94760